=== PATIENT | male | born 1950 | race Caucasian/White ===

== ENCOUNTER 2022-04-08 12:46 | Emergency (ER) | payer MEDICARE, OTHER, SELFPAY ==
[2022-04-08] VITALS (40 sets, daily range): BP systolic 128–214; BP diastolic 64–100; PULSE 84–100; RESP 20–41; TEMP 37.2; O2SAT 95–99; BMI 37.1
--- NOTE | 2022-04-08 13:09 | DI.RAD.S_ITS ---
PROCEDURE: XR CHEST 1V INDICATIONS: Shortness of breath TECHNIQUE: One view of the chest was acquired. COMPARISON: None. FINDINGS: Surgical changes and devices: Right-sided neural stimulator is noted. Lungs and pleura: Lungs are clear. No pleural effusions or pneumothorax. Mediastinum: Mediastinal contours appear normal. Heart size is enlarged. Bones and chest wall: No suspicious bony lesions. Overlying soft tissues appear unremarkable. IMPRESSION: Cardiomegaly. No acute pulmonary findings. Dictated by: Rosalie Ochoa M.D. on 04/08/2022 at 14:21 Approved by: Rosalie Ochoa M.D. on 04/08/2022 at 14:22
--- NOTE | 2022-04-08 13:25 | ED.SOB ---
HPI - SOB/Dyspnea <Ricardo Jones MD - Last Filed: 04/09/22 10:00> General Chief Complaint: Shortness of Breath/Dyspnea Stated Complaint: SOB 7-10 days Time Seen by Provider: 04/08/22 13:17 Source: patient Mode of arrival: Ambulatory Limitations: no limitations History of Present Illness HPI Narrative: 72-year-old male presenting with worsening shortness breath over the last 7-10 days. Patient reports gradually worsening shortness of breath with activity or ambulation, no prior diagnosis of reactive airway disease or COPD. Patient denies fevers or productive cough. No known sick contacts. No associated chest pain. No abdominal pain. Past medical history notable for diabetes, obesity, Parkinson's. Related Data Home Medications Medication Instructions Recorded Confirmed atorvastatin 10 mg tablet 10 mg PO DAILY 04/08/22 04/08/22 carbidopa 25 mg-levodopa 100 mg 2 tab PO 5XD 04/08/22 04/08/22 tablet entacapone 200 mg tablet 200 mg PO 5XD 04/08/22 04/08/22 gabapentin 100 mg capsule 100 mg PO TID 04/08/22 04/08/22 insulin glargine 100 unit/mL (3 See Rx Instructions .Route .COMPLEX 04/08/22 04/08/22 mL) subcutaneous pen (Lantus Solostar U-100 Insulin) losartan 50 mg tablet 50 mg PO DAILY 04/08/22 04/08/22 metformin 850 mg tablet 850 mg PO TID 04/08/22 04/08/22 omeprazole 20 mg capsule,delayed 20 mg PO DAILY 04/08/22 04/08/22 release potassium citrate 10 mEq (1,080 10 meq PO BID 04/08/22 04/08/22 mg) tablet,extended release tamsulosin 0.4 mg capsule 0.8 mg PO DAILY 04/08/22 04/08/22 Previous Rx's Medication Instructions Recorded cefpodoxime 200 mg tablet 200 mg PO BID 10 days #20 tabs 04/09/22 furosemide 40 mg tablet (Lasix) 40 mg PO DAILY #5 tabs 04/09/22 Allergies Allergy/AdvReac Type Severity Reaction Status Date / Time No Known Drug Allergies Allergy Verified 04/08/22 13:43 <Wilfredo Grover DO - Last Filed: 04/09/22 03:06> Review of Systems Narrative: GENERAL: Denies chills, fatigue, malaise, fever, sweats. HEENT: Denies sinus pain, ear pain, sore throat, difficulty swallowing, dizziness. RESPIRATORY: See HPI CARDIOVASCULAR: Denies chest pain, palpitations, orthopnea, edema, GASTROINTESTINAL: Denies nausea, vomiting, abdominal pain, diarrhea, constipation, melena. : See HPI MUSCULOSKELETAL: denies weakness, joint pain, or bony pain SKIN: Denies rash, skin lesions, or other NEUROLOGIC: Denies weakness, headache, numbness, change in speech, confusion, seizures, incoordination. PSYCHIATRIC: No concerning psychosocial issues. 12 point review of systems is negative except for those stated above Patient History <Ricardo Jones MD - Last Filed: 04/09/22 10:00> Social History Smoking Status: Never smoker Smoking Status: Never smoker alcohol intake frequency: 0-2 drinks per day Substance Use Type: does not use Exam <Ricardo Jones MD - Last Filed: 04/09/22 10:00> Narrative Exam Narrative: Vitals reviewed. Nursing note reviewed Constitutional: interactive HENT: Moist mucous membranes EYES: No scleral icterus NECK: no masses CV: Well perfused peripherally, no cyanosis present PULM: Increased work of breathing, audible expiratory wheezing, no wheezing in the bases ABD: Non-distended MS: No gross deformities, no asymmetric edema noted, trace pitting edema in the bilateral lower extremities SKIN: Warm and dry. PSYCH: Appropriate affect NEURO: Follows simple commands, moves extremities, interactive with exam Initial Vital Signs Initial Vital Signs: Vital Signs Temperature 98.9 F 04/08/22 13:05 Pulse Rate 91 H 04/08/22 13:05 Respiratory Rate 20 04/08/22 13:05 Blood Pressure 192/88 H 04/08/22 13:05 Pulse Oximetry 98 04/08/22 13:05 Oxygen Delivery Method Room Air 04/08/22 13:05 <Wilfredo Grover DO - Last Filed: 04/09/22 03:06> Initial Vital Signs Initial Vital Signs: Vital Signs Temperature 98.9 F 04/08/22 13:05 Pulse Rate 91 H 04/08/22 13:05 Respiratory Rate 20 04/08/22 13:05 Blood Pressure 192/88 H 04/08/22 13:05 Pulse Oximetry 98 04/08/22 13:05 Oxygen Delivery Method Room Air 04/08/22 13:05 Course <Ricardo Jones MD - Last Filed: 04/09/22 10:00> Orders Ordered: ED Orders 04/09/22 01:41 Lactate (Lactic Acid) Stat Discontinued Medications Albuterol/Ipratropium (Albuterol/Ipratropium 3 Ml Ampul) 3 ml INH NOW ONE Stop: 04/08/22 13:37 Last Admin: 04/08/22 13:42 Dose: 3 ml Documented By: ENE Furosemide (Furosemide 40 Mg/4 Ml Vial) 40 mg IV NOW ONE Stop: 04/08/22 14:40 Last Admin: 04/08/22 15:21 Dose: 40 mg Documented By: RB Ceftriaxone Sodium 2,000 mg/ (Sodium Chloride) 100 mls @ 200 mls/hr IV NOW ONE Stop: 04/09/22 01:13 Last Infusion: 04/09/22 02:21 Dose: 0 mls/hr Documented By: Admin: 04/09/22 01:27 Dose: 200 mls/hr Documented By: RB Vital Signs Vital signs: Vital Signs - 8 hr 04/09/22 02:00 04/09/22 02:30 04/09/22 03:00 Temperature Pulse Rate 80 76 79 Respiratory Rate 36 H 43 H 24 Blood Pressure 156/94 H Pulse Oximetry 100 97 91 Oxygen Delivery Method 04/09/22 03:34 Temperature 98 F Pulse Rate 94 H Respiratory Rate 26 H Blood Pressure 162/94 H Pulse Oximetry 96 Oxygen Delivery Method Room Air <Wilfredo Grover DO - Last Filed: 04/09/22 03:06> Orders Ordered: ED Orders 04/09/22 01:41 Lactate (Lactic Acid) Stat Discontinued Medications Albuterol/Ipratropium (Albuterol/Ipratropium 3 Ml Ampul) 3 ml INH NOW ONE Stop: 04/08/22 13:37 Last Admin: 04/08/22 13:42 Dose: 3 ml Documented By: ENE Furosemide (Furosemide 40 Mg/4 Ml Vial) 40 mg IV NOW ONE Stop: 04/08/22 14:40 Last Admin: 04/08/22 15:21 Dose: 40 mg Documented By: RB Ceftriaxone Sodium 2,000 mg/ (Sodium Chloride) 100 mls @ 200 mls/hr IV NOW ONE Stop: 04/09/22 01:13 Last Infusion: 04/09/22 02:21 Dose: 0 mls/hr Documented By: Admin: 04/09/22 01:27 Dose: 200 mls/hr Documented By: MALCOLM Reevaluation(s) Reevaluation #1: Patient resting comfortably and feeling significant improvement after above-stated therapies. He is able to ambulate through the department is no longer short of breath Vital Signs Vital signs: Vital Signs - 8 hr 04/09/22 02:00 04/09/22 02:30 04/09/22 03:00 Temperature Pulse Rate 80 76 79 Respiratory Rate 36 H 43 H 24 Blood Pressure 156/94 H Pulse Oximetry 100 97 91 Oxygen Delivery Method 04/09/22 03:34 Temperature 98 F Pulse Rate 94 H Respiratory Rate 26 H Blood Pressure 162/94 H Pulse Oximetry 96 Oxygen Delivery Method Room Air MDM - SOB/Dyspnea <Ricardo Jones MD - Last Filed: 04/09/22 10:00> Lab Data 04/08/22 13:30 04/08/22 20:41 Labs: Lab Results 04/08/22 04/08/22 04/08/22 Range/Units 13:30 13:30 13:30 WBC 7.6 (4.5-11.0) X10^3/uL RBC 4.34 L (4.5-5.9) X10^6/uL Hgb 11.9 L (13.5-17.5) g/dL Hct 35.8 L (41-53) % MCV 82.3 (80-100) fL MCH 27.5 (26-34) PG MCHC 33.3 (30-36) % RDW 15.4 H (11.6-14.8) % Plt Count 222 (150-400) X10^3/uL Neut % (Auto) 78.0 H (50-75) % Lymph % (Auto) 11.3 L (25-40) % [place] % (Auto) 8.7 (3-14) % Eos % (Auto) 1.2 L (2-4) % Baso % (Auto) 0.8 (0-2) % Neut # (Auto) 6000 (5763-3121) /uL Lymph # (Auto) 900 L (7458-2028) /uL [place] # (Auto) 700 (0-900) /uL Eos # (Auto) 100 (0-450) /uL Baso # (Auto) 100 (0-100) /uL PT 12.8 H (10.1-12.7) SECONDS INR 1.1 (0.9-1.3) D-Dimer (<500) ng/ml VBG pH (7.33-7.43) VBG pCO2 (45-50) mmHg VBG pO2 (35-45) mmHg VBG HCO3 (24-28) mmol/L VBG Total CO2 (24-29) mmol/L VBG O2 Saturation (70-75) % VBG Base Excess (0-4) mmol/L FiO2 Sodium 135 L (137-145) mmol/L Potassium 4.3 (3.4-5.1) mmol/L Chloride 105 (98-107) mmol/L Carbon Dioxide 22 (22-32) mmol/L BUN 23 H (9-20) mg/dL Creatinine 0.93 (0.66-1.25) mg/dL Estimated GFR > 60 (>60) mL/min BUN/Creatinine Ratio 24.7 H (6-22) Glucose 285 H (80-110) mg/dL Lactate (0.7-2.1) mmol/L Calcium 9.1 (8.4-10.2) mg/dL Total Bilirubin 0.5 (0.2-1.3) mg/dL AST 21 (17-59) IU/L ALT 13 (<50) IU/L Alkaline Phosphatase 109 (38-126) U/L Troponin I < 0.012 (0.01-0.034) ng/mL NT-Pro-B Natriuret Pep 412 H (<125) pg/mL Total Protein 7.5 (6.3-8.2) g/dL Albumin 4.0 (3.5-5.0) g/dL Globulin 3.5 (1.7-4.1) g/dL Albumin/Globulin Ratio 1.1 (1.0-2.8) Procalcitonin (<0.5) ng/mL Urine RBC (0-5/HPF) Urine WBC (0-5/HPF) Urine Bacteria (None) SARS-CoV-2 (PCR) Influenza A (RT-PCR) (NEGATIVE) Influenza B (RT-PCR) (NEGATIVE) RSV (PCR) (Negative) 04/08/22 04/08/22 04/08/22 Range/Units 13:30 13:30 13:30 WBC (4.5-11.0) X10^3/uL RBC (4.5-5.9) X10^6/uL Hgb (13.5-17.5) g/dL Hct (41-53) % MCV (80-100) fL MCH (26-34) PG MCHC (30-36) % RDW (11.6-14.8) % Plt Count (150-400) X10^3/uL Neut % (Auto) (50-75) % Lymph % (Auto) (25-40) % [place] % (Auto) (3-14) % Eos % (Auto) (2-4) % Baso % (Auto) (0-2) % Neut # (Auto) (0677-2604) /uL Lymph # (Auto) (6945-7108) /uL [place] # (Auto) (0-900) /uL Eos # (Auto) (0-450) /uL Baso # (Auto) (0-100) /uL PT (10.1-12.7) SECONDS INR (0.9-1.3) D-Dimer (<500) ng/ml VBG pH (7.33-7.43) VBG pCO2 (45-50) mmHg VBG pO2 (35-45) mmHg VBG HCO3 (24-28) mmol/L VBG Total CO2 (24-29) mmol/L VBG O2 Saturation (70-75) % VBG Base Excess (0-4) mmol/L FiO2 Sodium (137-145) mmol/L Potassium (3.4-5.1) mmol/L Chloride (98-107) mmol/L Carbon Dioxide (22-32) mmol/L BUN (9-20) mg/dL Creatinine (0.66-1.25) mg/dL Estimated GFR (>60) mL/min BUN/Creatinine Ratio (6-22) Glucose (80-110) mg/dL Lactate 2.6 H (0.7-2.1) mmol/L Calcium (8.4-10.2) mg/dL Total Bilirubin (0.2-1.3) mg/dL AST (17-59) IU/L ALT (<50) IU/L Alkaline Phosphatase (38-126) U/L Troponin I (0.01-0.034) ng/mL NT-Pro-B Natriuret Pep (<125) pg/mL Total Protein (6.3-8.2) g/dL Albumin (3.5-5.0) g/dL Globulin (1.7-4.1) g/dL Albumin/Globulin Ratio (1.0-2.8) Procalcitonin (<0.5) ng/mL Urine RBC (0-5/HPF) Urine WBC (0-5/HPF) Urine Bacteria (None) SARS-CoV-2 (PCR) Cancelled Negative Influenza A (RT-PCR) Flu a negative (NEGATIVE) Influenza B (RT-PCR) Flu b negative (NEGATIVE) RSV (PCR) Negative (Negative) 04/08/22 04/08/22 04/08/22 Range/Units 13:30 15:50 15:59 WBC (4.5-11.0) X10^3/uL RBC (4.5-5.9) X10^6/uL Hgb (13.5-17.5) g/dL Hct (41-53) % MCV (80-100) fL MCH (26-34) PG MCHC (30-36) % RDW (11.6-14.8) % Plt Count (150-400) X10^3/uL Neut % (Auto) (50-75) % Lymph % (Auto) (25-40) % [place] % (Auto) (3-14) % Eos % (Auto) (2-4) % Baso % (Auto) (0-2) % Neut # (Auto) (8538-1290) /uL Lymph # (Auto) (5110-6227) /uL [place] # (Auto) (0-900) /uL Eos # (Auto) (0-450) /uL Baso # (Auto) (0-100) /uL PT (10.1-12.7) SECONDS INR (0.9-1.3) D-Dimer (<500) ng/ml VBG pH (7.33-7.43) VBG pCO2 (45-50) mmHg VBG pO2 (35-45) mmHg VBG HCO3 (24-28) mmol/L VBG Total CO2 (24-29) mmol/L VBG O2 Saturation (70-75) % VBG Base Excess (0-4) mmol/L FiO2 Sodium (137-145) mmol/L Potassium (3.4-5.1) mmol/L Chloride (98-107) mmol/L Carbon Dioxide (22-32) mmol/L BUN (9-20) mg/dL Creatinine (0.66-1.25) mg/dL Estimated GFR (>60) mL/min BUN/Creatinine Ratio (6-22) Glucose (80-110) mg/dL Lactate 3.4 H (0.7-2.1) mmol/L Calcium (8.4-10.2) mg/dL Total Bilirubin (0.2-1.3) mg/dL AST (17-59) IU/L ALT (<50) IU/L Alkaline Phosphatase (38-126) U/L Troponin I (0.01-0.034) ng/mL NT-Pro-B Natriuret Pep (<125) pg/mL Total Protein (6.3-8.2) g/dL Albumin (3.5-5.0) g/dL Globulin (1.7-4.1) g/dL Albumin/Globulin Ratio (1.0-2.8) Procalcitonin 0.11 (<0.5) ng/mL Urine RBC 1-5/hpf (0-5/HPF) Urine WBC 30-100/hpf H (0-5/HPF) Urine Bacteria Many (>30) H (None) SARS-CoV-2 (PCR) Influenza A (RT-PCR) (NEGATIVE) Influenza B (RT-PCR) (NEGATIVE) RSV (PCR) (Negative) 04/08/22 04/08/22 04/08/22 Range/Units 19:55 20:41 22:30 WBC (4.5-11.0) X10^3/uL RBC (4.5-5.9) X10^6/uL Hgb (13.5-17.5) g/dL Hct (41-53) % MCV (80-100) fL MCH (26-34) PG MCHC (30-36) % RDW (11.6-14.8) % Plt Count (150-400) X10^3/uL Neut % (Auto) (50-75) % Lymph % (Auto) (25-40) % [place] % (Auto) (3-14) % Eos % (Auto) (2-4) % Baso % (Auto) (0-2) % Neut # (Auto) (6978-0112) /uL Lymph # (Auto) (1211-1266) /uL [place] # (Auto) (0-900) /uL Eos # (Auto) (0-450) /uL Baso # (Auto) (0-100) /uL PT (10.1-12.7) SECONDS INR (0.9-1.3) D-Dimer 579 H (<500) ng/ml VBG pH 7.47 H (7.33-7.43) VBG pCO2 31.2 L (45-50) mmHg VBG pO2 52 H (35-45) mmHg VBG HCO3 23 L (24-28) mmol/L VBG Total CO2 24 (24-29) mmol/L VBG O2 Saturation 89 H (70-75) % VBG Base Excess -1.0 L (0-4) mmol/L FiO2 21 Sodium 138 (137-145) mmol/L Potassium 3.9 (3.4-5.1) mmol/L Chloride 107 (98-107) mmol/L Carbon Dioxide 24 (22-32) mmol/L BUN 20 (9-20) mg/dL Creatinine 0.92 (0.66-1.25) mg/dL Estimated GFR > 60 (>60) mL/min BUN/Creatinine Ratio 21.7 (6-22) Glucose 122 H D (80-110) mg/dL Lactate (0.7-2.1) mmol/L Calcium 9.2 (8.4-10.2) mg/dL Total Bilirubin (0.2-1.3) mg/dL AST (17-59) IU/L ALT (<50) IU/L Alkaline Phosphatase (38-126) U/L Troponin I (0.01-0.034) ng/mL NT-Pro-B Natriuret Pep (<125) pg/mL Total Protein (6.3-8.2) g/dL Albumin (3.5-5.0) g/dL Globulin (1.7-4.1) g/dL Albumin/Globulin Ratio (1.0-2.8) Procalcitonin (<0.5) ng/mL Urine RBC (0-5/HPF) Urine WBC (0-5/HPF) Urine Bacteria (None) SARS-CoV-2 (PCR) Influenza A (RT-PCR) (NEGATIVE) Influenza B (RT-PCR) (NEGATIVE) RSV (PCR) (Negative) 04/09/22 Range/Units 01:41 WBC (4.5-11.0) X10^3/uL RBC (4.5-5.9) X10^6/uL Hgb (13.5-17.5) g/dL Hct (41-53) % MCV (80-100) fL MCH (26-34) PG MCHC (30-36) % RDW (11.6-14.8) % Plt Count (150-400) X10^3/uL Neut % (Auto) (50-75) % Lymph % (Auto) (25-40) % [place] % (Auto) (3-14) % Eos % (Auto) (2-4) % Baso % (Auto) (0-2) % Neut # (Auto) (5299-1895) /uL Lymph # (Auto) (2956-6494) /uL [place] # (Auto) (0-900) /uL Eos # (Auto) (0-450) /uL Baso # (Auto) (0-100) /uL PT (10.1-12.7) SECONDS INR (0.9-1.3) D-Dimer (<500) ng/ml VBG pH (7.33-7.43) VBG pCO2 (45-50) mmHg VBG pO2 (35-45) mmHg VBG HCO3 (24-28) mmol/L VBG Total CO2 (24-29) mmol/L VBG O2 Saturation (70-75) % VBG Base Excess (0-4) mmol/L FiO2 Sodium (137-145) mmol/L Potassium (3.4-5.1) mmol/L Chloride (98-107) mmol/L Carbon Dioxide (22-32) mmol/L BUN (9-20) mg/dL Creatinine (0.66-1.25) mg/dL Estimated GFR (>60) mL/min BUN/Creatinine Ratio (6-22) Glucose (80-110) mg/dL Lactate 1.3 (0.7-2.1) mmol/L Calcium (8.4-10.2) mg/dL Total Bilirubin (0.2-1.3) mg/dL AST (17-59) IU/L ALT (<50) IU/L Alkaline Phosphatase (38-126) U/L Troponin I (0.01-0.034) ng/mL NT-Pro-B Natriuret Pep (<125) pg/mL Total Protein (6.3-8.2) g/dL Albumin (3.5-5.0) g/dL Globulin (1.7-4.1) g/dL Albumin/Globulin Ratio (1.0-2.8) Procalcitonin (<0.5) ng/mL Urine RBC (0-5/HPF) Urine WBC (0-5/HPF) Urine Bacteria (None) SARS-CoV-2 (PCR) Influenza A (RT-PCR) (NEGATIVE) Influenza B (RT-PCR) (NEGATIVE) RSV (PCR) (Negative) Point of Care Testing Glucose POC 120 Urine Dip Bedside Urine Glucose 1000 mg/dl Bedside Urine Bilirubin - Negative Bedside Urine Ketone - Negative Urine Specific [place] 1.015 Bedside Urine Occult Blood +/- Bedside Urine pH 6.0 Bedside Urine Protein - Negative Bedside Urine Urobilinogen 0.2 Bedside Urine Nitrite - Negative Bedside Urine Leukocytes + 70 Esterase MDM Narrative Medical decision making narrative: 72-year-old male presenting with worsening shortness of breath over the last 7-10 days. On presentation, vital signs notable for hypertension and normal room-air oxygen saturation, elevated respiratory rate. Physical exam notable for 72-year-old male who is alert and interactive, moderate respiratory distress. Initial concern for infectious etiology including viral syndrome, focal bacterial infection, occult sepsis, ACS, pulmonary embolism, reactive airway disease/COPD. EKG obtained on presentation notable for normal sinus rhythm at 94, normal axis, no clear ST elevation or depression noted, no significant T-wave inversions noted, QTC of 430, no significant ectopy appreciated on EKG with baseline artifact. Broad screening labs were obtained and notable for CMP with hyperglycemia and normal range bicarb, negative cardiac enzyne, mildly elevated BNP. Lactate mildly elevated with normal procalcitonin. Pt without evidence of ACS given reassuring EKG, negative troponin after several days of symptoms. COPD exacerbation seems unlikely given pt without extensive smoking history, no wheezing in the bilateral bases, and pt without significant effect with duoneb/bronchodilators on presentation. Pt administered IV furosemide given concern for possible chf exacerbation with mild cardiomegaly, mildly elevated BNP, and pitting edema no the lower extremities. Pt with significant urine output and improvment in symptoms following diuretic administration. However, repeat lactate up trending. At this point, pt does not have clear infectious source. Discussed plan for repeat labs/VBG to further assess need for admission vs discharge. Pt subsequently signed out to oncoming provider team with disposition ending follow up labs and repeat evaluation. <Wilfredo Grover DO - Last Filed: 04/09/22 03:06> Lab Data Labs: Lab Results 04/08/22 04/08/22 04/08/22 Range/Units 13:30 13:30 13:30 WBC 7.6 (4.5-11.0) X10^3/uL RBC 4.34 L (4.5-5.9) X10^6/uL Hgb 11.9 L (13.5-17.5) g/dL Hct 35.8 L (41-53) % MCV 82.3 (80-100) fL MCH 27.5 (26-34) PG MCHC 33.3 (30-36) % RDW 15.4 H (11.6-14.8) % Plt Count 222 (150-400) X10^3/uL Neut % (Auto) 78.0 H (50-75) % Lymph % (Auto) 11.3 L (25-40) % [place] % (Auto) 8.7 (3-14) % Eos % (Auto) 1.2 L (2-4) % Baso % (Auto) 0.8 (0-2) % Neut # (Auto) 6000 (2651-8603) /uL Lymph # (Auto) 900 L (7051-7924) /uL [place] # (Auto) 700 (0-900) /uL Eos # (Auto) 100 (0-450) /uL Baso # (Auto) 100 (0-100) /uL PT 12.8 H (10.1-12.7) SECONDS INR 1.1 (0.9-1.3) D-Dimer (<500) ng/ml VBG pH (7.33-7.43) VBG pCO2 (45-50) mmHg VBG pO2 (35-45) mmHg VBG HCO3 (24-28) mmol/L VBG Total CO2 (24-29) mmol/L VBG O2 Saturation (70-75) % VBG Base Excess (0-4) mmol/L FiO2 Sodium 135 L (137-145) mmol/L Potassium 4.3 (3.4-5.1) mmol/L Chloride 105 (98-107) mmol/L Carbon Dioxide 22 (22-32) mmol/L BUN 23 H (9-20) mg/dL Creatinine 0.93 (0.66-1.25) mg/dL Estimated GFR > 60 (>60) mL/min BUN/Creatinine Ratio 24.7 H (6-22) Glucose 285 H (80-110) mg/dL Lactate (0.7-2.1) mmol/L Calcium 9.1 (8.4-10.2) mg/dL Total Bilirubin 0.5 (0.2-1.3) mg/dL AST 21 (17-59) IU/L ALT 13 (<50) IU/L Alkaline Phosphatase 109 (38-126) U/L Troponin I < 0.012 (0.01-0.034) ng/mL NT-Pro-B Natriuret Pep 412 H (<125) pg/mL Total Protein 7.5 (6.3-8.2) g/dL Albumin 4.0 (3.5-5.0) g/dL Globulin 3.5 (1.7-4.1) g/dL Albumin/Globulin Ratio 1.1 (1.0-2.8) Procalcitonin (<0.5) ng/mL Urine RBC (0-5/HPF) Urine WBC (0-5/HPF) Urine Bacteria (None) SARS-CoV-2 (PCR) Influenza A (RT-PCR) (NEGATIVE) Influenza B (RT-PCR) (NEGATIVE) RSV (PCR) (Negative) 04/08/22 04/08/22 04/08/22 Range/Units 13:30 13:30 13:30 WBC (4.5-11.0) X10^3/uL RBC (4.5-5.9) X10^6/uL Hgb (13.5-17.5) g/dL Hct (41-53) % MCV (80-100) fL MCH (26-34) PG MCHC (30-36) % RDW (11.6-14.8) % Plt Count (150-400) X10^3/uL Neut % (Auto) (50-75) % Lymph % (Auto) (25-40) % [place] % (Auto) (3-14) % Eos % (Auto) (2-4) % Baso % (Auto) (0-2) % Neut # (Auto) (6852-0089) /uL Lymph # (Auto) (4177-9899) /uL [place] # (Auto) (0-900) /uL Eos # (Auto) (0-450) /uL Baso # (Auto) (0-100) /uL PT (10.1-12.7) SECONDS INR (0.9-1.3) D-Dimer (<500) ng/ml VBG pH (7.33-7.43) VBG pCO2 (45-50) mmHg VBG pO2 (35-45) mmHg VBG HCO3 (24-28) mmol/L VBG Total CO2 (24-29) mmol/L VBG O2 Saturation (70-75) % VBG Base Excess (0-4) mmol/L FiO2 Sodium (137-145) mmol/L Potassium (3.4-5.1) mmol/L Chloride (98-107) mmol/L Carbon Dioxide (22-32) mmol/L BUN (9-20) mg/dL Creatinine (0.66-1.25) mg/dL Estimated GFR (>60) mL/min BUN/Creatinine Ratio (6-22) Glucose (80-110) mg/dL Lactate 2.6 H (0.7-2.1) mmol/L Calcium (8.4-10.2) mg/dL Total Bilirubin (0.2-1.3) mg/dL AST (17-59) IU/L ALT (<50) IU/L Alkaline Phosphatase (38-126) U/L Troponin I (0.01-0.034) ng/mL NT-Pro-B Natriuret Pep (<125) pg/mL Total Protein (6.3-8.2) g/dL Albumin (3.5-5.0) g/dL Globulin (1.7-4.1) g/dL Albumin/Globulin Ratio (1.0-2.8) Procalcitonin (<0.5) ng/mL Urine RBC (0-5/HPF) Urine WBC (0-5/HPF) Urine Bacteria (None) SARS-CoV-2 (PCR) Cancelled Negative Influenza A (RT-PCR) Flu a negative (NEGATIVE) Influenza B (RT-PCR) Flu b negative (NEGATIVE) RSV (PCR) Negative (Negative) 04/08/22 04/08/22 04/08/22 Range/Units 13:30 15:50 15:59 WBC (4.5-11.0) X10^3/uL RBC (4.5-5.9) X10^6/uL Hgb (13.5-17.5) g/dL Hct (41-53) % MCV (80-100) fL MCH (26-34) PG MCHC (30-36) % RDW (11.6-14.8) % Plt Count (150-400) X10^3/uL Neut % (Auto) (50-75) % Lymph % (Auto) (25-40) % [place] % (Auto) (3-14) % Eos % (Auto) (2-4) % Baso % (Auto) (0-2) % Neut # (Auto) (3486-9277) /uL Lymph # (Auto) (1447-0356) /uL [place] # (Auto) (0-900) /uL Eos # (Auto) (0-450) /uL Baso # (Auto) (0-100) /uL PT (10.1-12.7) SECONDS INR (0.9-1.3) D-Dimer (<500) ng/ml VBG pH (7.33-7.43) VBG pCO2 (45-50) mmHg VBG pO2 (35-45) mmHg VBG HCO3 (24-28) mmol/L VBG Total CO2 (24-29) mmol/L VBG O2 Saturation (70-75) % VBG Base Excess (0-4) mmol/L FiO2 Sodium (137-145) mmol/L Potassium (3.4-5.1) mmol/L Chloride (98-107) mmol/L Carbon Dioxide (22-32) mmol/L BUN (9-20) mg/dL Creatinine (0.66-1.25) mg/dL Estimated GFR (>60) mL/min BUN/Creatinine Ratio (6-22) Glucose (80-110) mg/dL Lactate 3.4 H (0.7-2.1) mmol/L Calcium (8.4-10.2) mg/dL Total Bilirubin (0.2-1.3) mg/dL AST (17-59) IU/L ALT (<50) IU/L Alkaline Phosphatase (38-126) U/L Troponin I (0.01-0.034) ng/mL NT-Pro-B Natriuret Pep (<125) pg/mL Total Protein (6.3-8.2) g/dL Albumin (3.5-5.0) g/dL Globulin (1.7-4.1) g/dL Albumin/Globulin Ratio (1.0-2.8) Procalcitonin 0.11 (<0.5) ng/mL Urine RBC 1-5/hpf (0-5/HPF) Urine WBC 30-100/hpf H (0-5/HPF) Urine Bacteria Many (>30) H (None) SARS-CoV-2 (PCR) Influenza A (RT-PCR) (NEGATIVE) Influenza B (RT-PCR) (NEGATIVE) RSV (PCR) (Negative) 04/08/22 04/08/22 04/08/22 Range/Units 19:55 20:41 22:30 WBC (4.5-11.0) X10^3/uL RBC (4.5-5.9) X10^6/uL Hgb (13.5-17.5) g/dL Hct (41-53) % MCV (80-100) fL MCH (26-34) PG MCHC (30-36) % RDW (11.6-14.8) % Plt Count (150-400) X10^3/uL Neut % (Auto) (50-75) % Lymph % (Auto) (25-40) % [place] % (Auto) (3-14) % Eos % (Auto) (2-4) % Baso % (Auto) (0-2) % Neut # (Auto) (3305-8172) /uL Lymph # (Auto) (7470-4371) /uL [place] # (Auto) (0-900) /uL Eos # (Auto) (0-450) /uL Baso # (Auto) (0-100) /uL PT (10.1-12.7) SECONDS INR (0.9-1.3) D-Dimer 579 H (<500) ng/ml VBG pH 7.47 H (7.33-7.43) VBG pCO2 31.2 L (45-50) mmHg VBG pO2 52 H (35-45) mmHg VBG HCO3 23 L (24-28) mmol/L VBG Total CO2 24 (24-29) mmol/L VBG O2 Saturation 89 H (70-75) % VBG Base Excess -1.0 L (0-4) mmol/L FiO2 21 Sodium 138 (137-145) mmol/L Potassium 3.9 (3.4-5.1) mmol/L Chloride 107 (98-107) mmol/L Carbon Dioxide 24 (22-32) mmol/L BUN 20 (9-20) mg/dL Creatinine 0.92 (0.66-1.25) mg/dL Estimated GFR > 60 (>60) mL/min BUN/Creatinine Ratio 21.7 (6-22) Glucose 122 H D (80-110) mg/dL Lactate (0.7-2.1) mmol/L Calcium 9.2 (8.4-10.2) mg/dL Total Bilirubin (0.2-1.3) mg/dL AST (17-59) IU/L ALT (<50) IU/L Alkaline Phosphatase (38-126) U/L Troponin I (0.01-0.034) ng/mL NT-Pro-B Natriuret Pep (<125) pg/mL Total Protein (6.3-8.2) g/dL Albumin (3.5-5.0) g/dL Globulin (1.7-4.1) g/dL Albumin/Globulin Ratio (1.0-2.8) Procalcitonin (<0.5) ng/mL Urine RBC (0-5/HPF) Urine WBC (0-5/HPF) Urine Bacteria (None) SARS-CoV-2 (PCR) Influenza A (RT-PCR) (NEGATIVE) Influenza B (RT-PCR) (NEGATIVE) RSV (PCR) (Negative) 04/09/22 Range/Units 01:41 WBC (4.5-11.0) X10^3/uL RBC (4.5-5.9) X10^6/uL Hgb (13.5-17.5) g/dL Hct (41-53) % MCV (80-100) fL MCH (26-34) PG MCHC (30-36) % RDW (11.6-14.8) % Plt Count (150-400) X10^3/uL Neut % (Auto) (50-75) % Lymph % (Auto) (25-40) % [place] % (Auto) (3-14) % Eos % (Auto) (2-4) % Baso % (Auto) (0-2) % Neut # (Auto) (6162-6353) /uL Lymph # (Auto) (5588-1385) /uL [place] # (Auto) (0-900) /uL Eos # (Auto) (0-450) /uL Baso # (Auto) (0-100) /uL PT (10.1-12.7) SECONDS INR (0.9-1.3) D-Dimer (<500) ng/ml VBG pH (7.33-7.43) VBG pCO2 (45-50) mmHg VBG pO2 (35-45) mmHg VBG HCO3 (24-28) mmol/L VBG Total CO2 (24-29) mmol/L VBG O2 Saturation (70-75) % VBG Base Excess (0-4) mmol/L FiO2 Sodium (137-145) mmol/L Potassium (3.4-5.1) mmol/L Chloride (98-107) mmol/L Carbon Dioxide (22-32) mmol/L BUN (9-20) mg/dL Creatinine (0.66-1.25) mg/dL Estimated GFR (>60) mL/min BUN/Creatinine Ratio (6-22) Glucose (80-110) mg/dL Lactate 1.3 (0.7-2.1) mmol/L Calcium (8.4-10.2) mg/dL Total Bilirubin (0.2-1.3) mg/dL AST (17-59) IU/L ALT (<50) IU/L Alkaline Phosphatase (38-126) U/L Troponin I (0.01-0.034) ng/mL NT-Pro-B Natriuret Pep (<125) pg/mL Total Protein (6.3-8.2) g/dL Albumin (3.5-5.0) g/dL Globulin (1.7-4.1) g/dL Albumin/Globulin Ratio (1.0-2.8) Procalcitonin (<0.5) ng/mL Urine RBC (0-5/HPF) Urine WBC (0-5/HPF) Urine Bacteria (None) SARS-CoV-2 (PCR) Influenza A (RT-PCR) (NEGATIVE) Influenza B (RT-PCR) (NEGATIVE) RSV (PCR) (Negative) Point of Care Testing Glucose POC 120 Urine Dip Bedside Urine Glucose 1000 mg/dl Bedside Urine Bilirubin - Negative Bedside Urine Ketone - Negative Urine Specific [place] 1.015 Bedside Urine Occult Blood +/- Bedside Urine pH 6.0 Bedside Urine Protein - Negative Bedside Urine Urobilinogen 0.2 Bedside Urine Nitrite - Negative Bedside Urine Leukocytes + 70 Esterase MDM Narrative Medical decision making narrative: 72-year-old male presenting with worsening shortness of breath over the last 7-10 days. On presentation, vital signs notable for hypertension and normal room-air oxygen saturation, elevated respiratory rate. Physical exam notable for 72-year-old male who is alert and interactive, moderate respiratory distress. Initial concern for infectious etiology including viral syndrome, focal bacterial infection, occult sepsis, ACS, pulmonary embolism, reactive airway disease/COPD. EKG obtained on presentation notable for normal sinus rhythm at 94, normal axis, no clear ST elevation or depression noted, no significant T-wave inversions noted, QTC of 430, no significant ectopy appreciated on EKG with baseline artifact. Broad screening labs were obtained and notable for CMP with hyperglycemia and normal range bicarb, negative cardiac enzyne, mildly elevated BNP. Lactate mildly elevated with normal procalcitonin. Pt without evidence of ACS given reassuring EKG, negative troponin after several days of symptoms. COPD exacerbation seems unlikely given pt without extensive smoking history, no wheezing in the bilateral bases, and pt without significant effect with duoneb/bronchodilators on presentation. Pt administered IV furosemide given concern for possible chf exacerbation with mild cardiomegaly, mildly elevated BNP, and pitting edema no the lower extremities. Pt with significant urine output and improvment in symptoms following diuretic administration. However, repeat lactate up trending. At this point, pt does not have clear infectious source. Discussed plan for repeat labs/VBG to further assess need for admission vs discharge. Pt subsequently signed out to oncoming provider team with disposition ending follow up labs and repeat evaluation. [1900] (Reilly) Patient received in sign out from [Karen]. I have reviewed the clinical course and performed an independent history and physical exam. Patient's work of breathing, as noted above is significantly improved after diuresis. Subsequent urinary analysis notes significant white blood cells in the urine which is are likely source. Over the course of the night his respiratory effort has been remarkably improved. He is given antibiotics and advanced imaging without significant findings. Lactate repeated and normal. He shows no signs of sepsis, has no increased work of breathing, hypoxemia or reported shortness of breath at this point. He is appropriate for discharge, prescription sent to his pharmacy of choice, questions answered to his apparent satisfaction. He and family understand and agree with the diagnosis and plan Discharge Plan Departure Patient Disposition: Home Clinical Impression: Pulmonary edema, Acute UTI Instructions: DI for Urinary Tract Infection (UTI), DI for Shortness of Breath Activity Restrictions/Additional Instructions: *You have been diagnosed with [urinary tract infection and mild fluid overload called pulmonary edema *What to do: *Please continue to take your regular medications as directed. [x ] New medication prescriptions sent to your pharmacy: [ [facility]] [ ] New medication written as a paper prescription [ ] No new medications given *Please follow up with your primary care provider in 2-3 days, call for an appointment. Let them know you were seen in the Emergency Department and that we ask that you be seen in follow up. We will electronically transmit a record of today's note if your PCP is in our system *If you do not have a primary care provider please contact the [facility] Resource line at [phone]. They will ask some questions about your medical history and help get you set up with a doctor in the community. *Return to Emergency Department if you should have any new, worsening or concerning symptoms, such as [fever greater than 101 F, shaking chills, worsening pain, persistent vomiting or other bothersome symptoms] Prescriptions: New cefpodoxime 200 mg tablet 200 mg PO BID 10 Days Qty: 20 0RF Rx Instructions: must administer with a meal/food furosemide [Lasix] 40 mg tablet 40 mg PO DAILY Qty: 5 0RF No Action potassium citrate 10 mEq (1,080 mg) tablet extended release 10 meq PO BID carbidopa-levodopa 25-100 mg Tablet 2 tab PO 5XD metformin 850 mg tablet 850 mg PO TID Patient Comments: TAKE ONE TABLET BY MOUTH THREE TIMES A DAY entacapone 200 mg tablet 200 mg PO 5XD gabapentin 100 mg capsule 100 mg PO TID omeprazole 20 mg capsule,delayed release(DR/EC) 20 mg PO DAILY losartan 50 mg tablet 50 mg PO DAILY atorvastatin 10 mg tablet 10 mg PO DAILY Patient Comments: TAKE ONE TABLET BY MOUTH ONE TIME DAILY tamsulosin 0.4 mg capsule 0.8 mg PO DAILY insulin glargine [Lantus Solostar U-100 Insulin] 100 unit/mL (3 mL) insulin pen See Rx Instructions .ROUTE .COMPLEX Rx Instructions: Inject 80 units am and 75 units in pm under the skin two times a day. Referrals: Miscellaneous,Doctor, MD [Primary Care Provider] - Stand Alone Forms: Patient Portal/API
[2022-04-08] MEDS: ALBUTEROL/IPRATROPIUM 3 ML AMPUL INH (13:42)
[2022-04-08 13:50] LABS: Add Manual Diff / Slide Review NO; Basophils Absolute Auto 100 /uL (0-100); Basophils Percent Auto 0.8 % (0-2); Eosinophils Absolute Auto 100 /uL (0-450); Eosinophils Percent Auto 1.2 % (2-4); Hematocrit 35.8 % (41-53); Hemoglobin 11.9 g/dL (13.5-17.5); Lymphocytes Absolute Auto 900 /uL (1100-4500); Lymphocytes Percent Auto 11.3 % (25-40); Mean Corpuscular HGB Conc 33.3 % (30-36); Mean Corpuscular Hemoglobin 27.5 PG (26-34); Mean Corpuscular Volume 82.3 fL (80-100); Monocytes Absolute Auto 700 /uL (0-900); Monocytes Percent Auto 8.7 % (3-14); Neutrophils Absolute Auto 6000 /uL (1500-7000); Platelet Count 222 X10^3/uL (150-400); Red Blood Cell Count 4.34 X10^6/uL (4.5-5.9); Red Cell Distribution Width 15.4 % (11.6-14.8); White Blood Cell Count 7.6 X10^3/uL (4.5-11.0)
[2022-04-08 13:53] LABS: INR 1.1 (0.9-1.3); Prothrombin Time 12.8 SECONDS (10.1-12.7)
[2022-04-08 13:58] LABS: Alanine Aminotransferase 13 IU/L (<50); Albumin Globulin Ratio 1.1 (1.0-2.8); Alkaline Phosphatase 109 U/L (38-126); Aspartate Aminotransferase 21 IU/L (17-59); BUN Creatinine Ratio 24.7 (6-22); Bilirubin Total 0.5 mg/dL (0.2-1.3); Blood Urea Nitrogen 23 mg/dL (9-20); Calcium 9.1 mg/dL (8.4-10.2); Carbon Dioxide 22 mmol/L (22-32); Chloride 105 mmol/L (98-107); Estimated Glomerular Filt Rate > 60 mL/min (>60); Globulin 3.5 g/dL (1.7-4.1); Glucose 285 mg/dL (80-110); HEMOLYSIS < 15 (0-50); Lactate (Lactic Acid) 2.6 mmol/L (0.7-2.1); Potassium 4.3 mmol/L (3.4-5.1); Sodium 135 mmol/L (137-145); Total Protein 7.5 g/dL (6.3-8.2)
[2022-04-08 14:10] LABS: NT-proBNP (BNP-Adult 18+) 412 pg/mL (<125); Troponin I < 0.012 ng/mL (0.01-0.034)
[2022-04-08 14:29] LABS: Influenza A - CEPHEID Flu A NEGATIVE (NEGATIVE); Influenza B - CEPHEID Flu B NEGATIVE (NEGATIVE); Respiratory Syncytial Virus Negative (Negative)
[2022-04-08 14:32] LABS: COVID-19 CEPHEID 4-PLEX PCR Negative (Negative)
[2022-04-08] MEDS: FUROSEMIDE 40 MG/4 ML VIAL IV (15:21)
[2022-04-08 15:43] LABS: Reflexed Lactate in 2 Hours Y
[2022-04-08 16:19] LABS: Lactate 2HR (Lactic Acid Rflx) 3.4 mmol/L (0.7-2.1)
[2022-04-08 16:26] LABS: Bacteria Urine Many (>30); RBC Urine 1-5/HPF (0-5/HPF); WBC Urine 30-100/HPF (0-5/HPF)
[2022-04-08 17:29] LABS: Procalcitonin 0.11 ng/mL (<0.5)
[2022-04-08 20:11] LABS: pH VBG 7.47 (7.33-7.43)
[2022-04-08 20:12] LABS: Fractionated Inspired Oxygen 21; HCO3 VBG 23 mmol/L (24-28); Oxygen Saturation VBG 89 % (70-75); PCO2 VBG 31.2 mmHg (45-50); PO2 VBG 52 mmHg (35-45); Total CO2 VBG 24 mmol/L (24-29)
[2022-04-08 21:09] LABS: BUN Creatinine Ratio 21.7 (6-22); Blood Urea Nitrogen 20 mg/dL (9-20); Calcium 9.2 mg/dL (8.4-10.2); Carbon Dioxide 24 mmol/L (22-32); Chloride 107 mmol/L (98-107); Estimated Glomerular Filt Rate > 60 mL/min (>60); Glucose 122 mg/dL (80-110); HEMOLYSIS < 15 (0-50); Potassium 3.9 mmol/L (3.4-5.1); Sodium 138 mmol/L (137-145)
[2022-04-08 23:18] LABS: D Dimer 579 ng/ml (<500)
--- NOTE | 2022-04-08 23:23 | DI.CT.S_ITS ---
PROCEDURE: CT CHEST ABD PEL W CON INDICATIONS: worsening SOB, septic, TECHNIQUE: After the administration of intravenous contrast, axial sections acquired from the supraclavicular neck to the pubic symphysis. Coronal and sagittal reformats were performed. For radiation dose reduction, the following was used: automated exposure control, adjustment of mA and/or kV according to patient size. COMPARISON: None. FINDINGS: Image quality: Excellent. CHEST: Lower Neck: No lymphadenopathy by size criteria. Thyroid: Visualized thyroid demonstrates no discrete nodules. Axillae: No lymphadenopathy by size criteria. Chest Wall: There is a right chest wall pacemaker with a lead extending superiorly. Lungs and Airways: No acute consolidation. There is minimal dependent atelectasis. The trachea and central airways are patent. Pleura: No pneumothorax or pleural effusions. Heart: Heart size is normal. No pericardial effusion. Thoracic Vessels: The aorta and pulmonary arteries are normal in size. Mediastinum and [place]: No lymphadenopathy by size criteria. Esophagus: No wall thickening. There is a small hiatal hernia. ABDOMEN: Liver: No mass lesion. Gallbladder: Within normal limits without calcified gallstones. Biliary ducts: No biliary ductal dilatation. Pancreas: Unremarkable. Spleen: Normal in size. Adrenal Glands: There is a left adrenal nodule measuring up to 1.7 cm. This demonstrates indeterminate attenuation values. Kidneys and Ureters: No hydronephrosis. There is a small exophytic left renal cyst or renal mass measuring up to 1.9 cm. There are a few left renal cysts. There is a 0.4 cm nonobstructing stone within the left kidney. There is mild fullness of the left renal collecting system with extending to the bladder without a discrete obstructing stone or definite mass visualized. Stomach and Bowel: Stomach, small bowel loops, and colon are normal in caliber and wall thickness. Peritoneum: No abnormal intraperitoneal fluid. No free air. Ventral Wall: No hernia. Abdominal Nodes: No retroperitoneal or mesenteric adenopathy by size criteria. Vessels: Aorta and inferior vena cava are normal in size. PELVIS: Pelvic Organs: Multiple fiducial seeds are noted within the prostate. Bladder: There is mild bladder wall trabeculation suggesting sequelae of chronic bladder outlet obstruction. Pelvic Nodes: No enlarged lymph nodes. Miscellaneous: No inguinal hernias are seen. Bones: Visualized osseous structures demonstrate no suspicious focal lesions. IMPRESSION: 1. No definite acute intra-abdominal abnormality. 2. Left nephrolithiasis without evidence of obstructive uropathy. No pericecal inflammatory changes to suggest appendicitis. 3. Small nonobstructing stone within the left renal collecting system. 4. Mild fullness of the left renal collecting system may reflect a distal ureteral stricture or nonvisualized stone. 5. Bladder wall trabeculation consistent sequelae of chronic bladder outlet obstruction. 6. Medial left exophytic hyperdense cyst or renal mass. Recommend further evaluation with ultrasound. Dictated by: Jc Narayanan M.D. on 04/09/2022 at 0:26 Approved by: Jc Narayanan M.D. on 04/09/2022 at 0:37
[2022-04-09] VITALS (8 sets, daily range): BP systolic 156–162; BP diastolic 94; PULSE 76–94; RESP 24–50; TEMP 36.6; O2SAT 91–100
[2022-04-09] MEDS: cefTRIAXone 2,000 MG in SODIUM CHLORIDE 0.9% 100 ML 200 MG IV (01:27)
[2022-04-09 01:58] LABS: Lactate (Lactic Acid) 1.3 mmol/L (0.7-2.1)
== END 2022-04-09 03:35 | disposition home or self-care (01) ==
PROVIDERS: Emergency Medicine; Nurse Practitioner Critical Care Medicine; Emergency Provider Emergency Medicine
DX: J81.1 Chronic pulmonary edema (principal); N39.0 Urinary tract infection, site not specified; I10 Essential (primary) hypertension; Z20.822 Contact with and (suspected) exposure to COVID-19
CPT/HCPCS: 0241U; 36415; 71045; 71260; 74177; 80048; 80053; 81003; 81015; 82805; 82962; 83605; 83880; 84145; 84484; 85025; 85379; 85610; 87077; 87086; 87186; 93005; 94640; 96365; 96375; 99284; J0696; J1940; Q9967

== ENCOUNTER 2022-06-01 11:06 | Inpatient (IN) | payer MEDICARE, OTHER, SELFPAY ==
[2022-06-01] VITALS (126 sets, daily range): BP systolic 87–211; BP diastolic 49–91; PULSE 70–115; RESP 16–75; TEMP 36.8–38.8; O2SAT 72–100; BMI 37.4
[2022-06-01 12:12] LABS: Add Manual Diff / Slide Review NO; Basophils Absolute Auto 100 /uL (0-100); Basophils Percent Auto 0.5 % (0-2); Eosinophils Absolute Auto 0 /uL (0-450); Eosinophils Percent Auto 0.1 % (2-4); Hematocrit 32.4 % (41-53); Hemoglobin 10.7 g/dL (13.5-17.5); Lymphocytes Absolute Auto 1000 /uL (1100-4500); Lymphocytes Percent Auto 6.3 % (25-40); Mean Corpuscular Hemoglobin 27.3 PG (26-34); Mean Corpuscular Volume 82.7 fL (80-100); Monocytes Absolute Auto 1100 /uL (0-900); Neutrophils Absolute Auto 13300 /uL (1500-7000); Neutrophils Percent Auto 86.1 % (50-75); Platelet Count 266 X10^3/uL (150-400); Red Blood Cell Count 3.92 X10^6/uL (4.5-5.9); Red Cell Distribution Width 16.6 % (11.6-14.8); White Blood Cell Count 15.5 X10^3/uL (4.5-11.0)
--- NOTE | 2022-06-01 12:22 | PC.NURSE ---
Patient has a brain stimulator to treat his parkinson's disease. The battery is implanted on his Right anterior upper chest.
[2022-06-01 12:27] LABS: INR 1.3 (0.9-1.3); Prothrombin Time 15.4 SECONDS (10.1-12.7)
[2022-06-01 12:30] LABS: PTT Partial Thromboplastin Tim 28 SECONDS (26-36)
[2022-06-01 12:34] LABS: Lactate (Lactic Acid) 3.7 mmol/L (0.7-2.1)
[2022-06-01 12:35] LABS: Alanine Aminotransferase 16 IU/L (<50); Albumin 3.7 g/dL (3.5-5.0); Albumin Globulin Ratio 1.1 (1.0-2.8); Alkaline Phosphatase 91 U/L (38-126); Aspartate Aminotransferase 18 IU/L (17-59); BUN Creatinine Ratio 19.8 (6-22); Bilirubin Total 0.7 mg/dL (0.2-1.3); Blood Urea Nitrogen 25 mg/dL (9-20); Calcium 9.4 mg/dL (8.4-10.2); Carbon Dioxide 23 mmol/L (22-32); Chloride 101 mmol/L (98-107); Estimated Glomerular Filt Rate > 60 mL/min (>60); Globulin 3.5 g/dL (1.7-4.1); Glucose 196 mg/dL (80-110); HEMOLYSIS < 15 (0-50); Potassium 4.2 mmol/L (3.4-5.1); Sodium 134 mmol/L (137-145); Total Protein 7.2 g/dL (6.3-8.2)
--- NOTE | 2022-06-01 12:39 | DI.RAD.S_ITS ---
PROCEDURE: XR CHEST 1V INDICATIONS: suspected sepsis TECHNIQUE: One view of the chest was acquired. COMPARISON: [facility], CR, XR CHEST 1V, 04/08/2022, 13:44. FINDINGS: Surgical changes and devices: Right chest generator pack with leads coursing cephalad as before. Lungs and pleura: Lung volumes are low. Pulmonary vasculature appears prominent. Minimal hazy bibasilar opacities. Mediastinum: Mediastinal contours appear normal. Heart size is normal. Bones and chest wall: No suspicious bony lesions. Overlying soft tissues appear unremarkable. IMPRESSION: Lung volumes are low. Pulmonary vasculature appears congested with suggestion of minimal bibasilar pulmonary opacities, findings that could be accentuated due to low lung volumes but could indicate mild fluid overload/CHF. Dictated by: Ej Sim M.D. on 06/01/2022 at 13:15 Approved by: Ej Sim M.D. on 06/01/2022 at 13:18
[2022-06-01 13:15] LABS: Procalcitonin 0.36 ng/mL (<0.5)
[2022-06-01] MEDS: SODIUM CHLORIDE 0.9% 1052.33 ML IV (13:19)
[2022-06-01] MEDS: PANTOPRAZOLE 40 MG VIAL 80 MG IV (13:20)
--- NOTE | 2022-06-01 13:27 | DI.CT.S_ITS ---
PROCEDURE: CT ABDOMEN PELVIS WO CON INDICATIONS: Hematochezia TECHNIQUE: Noncontrast 5 mm thick sections acquired from the diaphragms to the symphysis. 5 mm coronal and sagittal reformats were then performed. For radiation dose reduction, the following was used: automated exposure control, adjustment of mA and/or kV according to patient size. COMPARISON: [facility], CT, CT CHEST ABD PEL W CON, 04/08/2022, 23:26. FINDINGS: Image quality: Excellent. ABDOMEN: Lung bases: Lung bases are clear. Heart size is normal. Solid organs: Liver is normal in size. Gallbladder is partially contracted, unremarkable . Pancreas is normal in contours. Spleen is normal in size. No adrenal nodules. Nonobstructing left lower pole renal stone. No hydronephrosis. Chronic inflammatory change in the perinephric fat bilaterally. Peritoneum and bowel: Unenhanced bowel loops demonstrate normal wall thickness and caliber. No free fluid or air. Nodes and vessels: No retroperitoneal or mesenteric adenopathy by size criteria. Aorta and inferior vena cava are normal in caliber. Miscellaneous: No ventral hernias. PELVIS: Genitourinary: Prostate implant seeds. Churchill catheter in the bladder decompresses the bladder. Diffuse bladder wall thickening. Miscellaneous: No inguinal hernias or adenopathy. Bones: No suspicious bony lesions. Old T12 compression fracture. No acute compression fractures. IMPRESSION: 1. No evidence of acute abdominal process. 2. Interval placement of a Churchill catheter, decompressing the bladder. The bladder wall is diffusely thickened. 3. Prostate implant seeds. 4. No evidence of metastatic disease in the abdomen and pelvis. Dictated by: Abhi Mccormick M.D. on 06/01/2022 at 14:34 Approved by: Abhi Mccormick M.D. on 06/01/2022 at 14:40
[2022-06-01 14:00] LABS: Appearance Urine UA CLEAR; Bilirubin Urine UA NEGATIVE (NEGATIVE); Color Urine UA YELLOW; Glucose Urine UA TRACE g/dL (Negative); Ketones Urine UA NEGATIVE (NEGATIVE); Leukocyte Esterase Urine UA 1+ (NEGATIVE); Nitrite Urine UA POSITIVE (Negative); Occult Blood Urine UA 1+ (Negative); Protein Urine UA 1+ (Negative); pH Urine UA 6.5 (4.5-8.0)
[2022-06-01 14:01] LABS: Creatine Kinase 78 U/L (55-170); NT-proBNP (BNP-Adult 18+) 637 pg/mL (<125); Troponin I 0.016 ng/mL (0.01-0.034)
--- NOTE | 2022-06-01 14:03 | ED_ITS ---
HPI - GI Bleed <Florentino Hernandez PA-C - Last Filed: 06/01/22 20:23> General Chief complaint: GI Bleed Stated complaint: blood in stool Time Seen by Provider: 06/01/22 11:07 Source: patient and family Mode of arrival: Wheelchair History of Present Illness HPI Narrative: 72-year-old male with past medical history BPH, GERD, hypertension, type 2 diabetes, Parkinson's disease, CHF, prostate cancer presents to the ED with 1 day of in the stools. Patient states he had a loose bowel movement this morning which was mostly blood. Patient has a distant history of hemorrhoids, no recent issues with them. Patient denies fever, chills, chest pain, shortness of breath, nausea, vomiting, abdominal pain, dysuria, lightheadedness, dizziness, syncope. Patient frequently self catheterizes almost every day due to the urinary retention caused from the Parkinson's disease. Patient has a history of frequent UTIs. Patient's last UTI was on 04/08/2022, treated with cefpodoxime. Patient was recently started on finasteride in addition to tamsulosin for the BPH. Related Data Home Medications Medication Instructions Recorded Confirmed carbidopa 25 mg-levodopa 100 mg 2 tab PO 5XD 04/08/22 05/24/22 tablet entacapone 200 mg tablet 200 mg PO 5XD 04/08/22 05/24/22 losartan 50 mg tablet 50 mg PO DAILY 04/08/22 05/24/22 metformin 850 mg tablet 850 mg PO TID 04/08/22 05/24/22 omeprazole 20 mg capsule,delayed 20 mg PO DAILY 04/08/22 05/24/22 release potassium citrate 10 mEq (1,080 10 meq PO BID 04/08/22 05/24/22 mg) tablet,extended release tamsulosin 0.4 mg capsule 0.8 mg PO DAILY 04/08/22 05/24/22 carbidopa ER 25 mg-levodopa 100 mg 1 tab PO BID 04/13/22 05/24/22 tablet,extended release lancets 33 gauge (Micro Thin #100 ea 04/13/22 05/24/22 Lancets) selegiline HCl 5 mg tablet 5 mg PO BID 04/13/22 05/24/22 atorvastatin 10 mg tablet 10 mg PO DAILY 05/24/22 05/24/22 gabapentin 100 mg capsule 100 mg PO TID 05/24/22 05/24/22 Previous Rx's Medication Instructions Recorded insulin glargine 100 unit/mL (3 See Rx Instructions .Route 04/13/22 mL) subcutaneous pen (Lantus .COMPLEX #15 mL Solostar U-100 Insulin) pen needle, diabetic 32 gauge x #100 ea 05/04/22 (BD Reshma 2nd Gen Pen Needle) finasteride 1 mg tablet 1 mg PO DAILY #90 tabs 05/31/22 Allergies Allergy/AdvReac Type Severity Reaction Status Date / Time No Known Drug Allergies Allergy Verified 06/01/22 11:28 Review of Systems <Florentino Hernandez PA-C - Last Filed: 06/01/22 20:23> Review of Systems ROS Unobtainable: All systems reviewed & are unremarkable except as noted in HPI and below Constitutional Constitutional: Denies chills, Denies fatigue, Denies fever(s), Denies frequent falls, Denies lethargy and Denies weakness Eyes Eyes: Denies change in vision, Denies eye discharge, Denies irritation and Denies loss of vision ENT Ears, Nose, Mouth, and Throat: Denies change in voice, Denies dizziness, Denies neck pain, Denies sore throat and Denies throat swelling Cardiovascular Cardiovascular: Denies chest pain, Denies irregular heart rhythm, Denies lighthe adedness, Denies palpitations, Denies dyspnea, Denies dyspnea on exertion and Denies orthopnea Respiratory Respiratory: Denies cough, Denies dyspnea, Denies dyspnea on exertion and Denies wheezing Gastrointestinal Gastrointestinal: Denies abdominal pain, Reports hematochezia, Denies change in bowel habits, Denies diarrhea, Denies nausea and Denies vomiting Genitourinary Genitourinary: Denies hematuria, Denies flank pain, Denies urinary incontinence and Denies urinary urgency Musculoskeletal Musculoskeletal: Denies back pain, Denies muscle weakness, Denies neck pain, Denies numbness and Denies tingling Integumentary/Breasts Skin/Breast: Denies pruritus, Denies erythema, Denies rash and Denies wounds Neurologic Neurologic: Denies behavioral changes, Denies confusion, Denies dizziness, Denies frequent falls, Denies loss of vision, Denies numbness, Denies tingling and Denies weakness Psychiatric Psychiatric: Denies anxiety, Denies behavioral changes, Denies confusion, Denies depression, Denies homicidal ideation and Denies suicidal ideation Endocrine Endocrine: Denies fatigue, Denies flushing and Denies palpitations Hematologic/Lymphatic Hematologic/Lymphatic: Denies easy bruising Allergic/Immunologic Allergic/Immunologic: Denies urticaria, Denies throat swelling and Denies wheezing Patient History <Florentino Hernandez PA-C - Last Filed: 06/01/22 20:23> Medical History Acne Anemia Ankle pain Benign prostatic hyperplasia Chicken pox Congestive heart failure GERD (gastroesophageal reflux disease) History of prostate cancer Hypertension Measles Parkinson's disease Prostate cancer (~2010) Shoulder pain Type 2 diabetes mellitus Surgical History Anesthesia History of knee surgery Kidney stones Family History Father Stroke Mother Cancer Sister Hypertension Social History household members: spouse, family and children Smoking Status: Former smoker alcohol intake: never Smoking Status: Former smoker tobacco type: cigarettes alcohol intake frequency: 0-2 drinks per day Substance Use Type: does not use Exam <Florentino Hernandez PA-C - Last Filed: 06/01/22 20:23> Initial Vital Signs Initial Vital Signs: Vital Signs Temperature 98.3 F 06/01/22 11:15 Pulse Rate 92 H 06/01/22 11:15 Respiratory Rate 16 06/01/22 11:15 Blood Pressure 160/70 H 06/01/22 11:15 Pulse Oximetry 98 06/01/22 11:15 Oxygen Delivery Method Room Air 06/01/22 11:15 <Wilfredo Grover DO - Last Filed: 06/02/22 06:40> Initial Vital Signs Initial Vital Signs: Vital Signs Temperature 98.3 F 06/01/22 11:15 Pulse Rate 92 H 06/01/22 11:15 Respiratory Rate 16 06/01/22 11:15 Blood Pressure 160/70 H 06/01/22 11:15 Pulse Oximetry 98 06/01/22 11:15 Oxygen Delivery Method Room Air 06/01/22 11:15 <Wilfredo Grover DO - Last Filed: 06/02/22 06:40> Central Line Placement Right IJ: Time Out Performed: Yes Patient Placed on Monitor/Pulse Ox: Yes MD Prep: mask, gown and gloves Central Line Prep: Chlorhexidine scrub and sterile drapes applied Local Anesthetic: lidocaine 2% Amount of anesthesia used (mL): 3 Ultrasound Used for Placement: Yes Central Line Lumen Inserted: triple Post Procedure: good blood return, all ports aspirated, flushed, capped, sterile dressing applied and line stabilization device Post Procedure X-Ray: tip of catheter in good position and no pneumothorax seen Patient Tolerated Procedure: Well Complications: none Course <Florentino Hernandez PA-C - Last Filed: 06/01/22 20:23> Orders Ordered: Acetaminophen (Acetaminophen 325 Mg Tablet) 650 mg PO Q6H PRN PRN Reason: Fever/Mild Pain (1-3) Last Admin: 06/02/22 01:19 Dose: 650 mg Documented By: HAI Carbidopa/Levodopa (Carbidopa-Levodopa 25/100 Tablet) 2 each PO 5XD [facility] Last Admin: 06/02/22 06:08 Dose: 2 each Documented By: Admin: 06/01/22 22:42 Dose: 2 each Documented By: HAI Dextrose (Dextrose 50 % In Water 25 Gm/50 Ml Syringe) 25 gm IV PRN PRN PRN Reason: Hypoglycemia Entacapone (Entacapone 200 Mg Tablet) 200 mg PO 5XD [facility] Last Admin: 06/02/22 06:22 Dose: Not Given Documented By: Admin: 06/01/22 22:56 Dose: Not Given Documented By: HAI Cefepime HCl 1 gm/ Sodium (Chloride) 100 mls @ 200 mls/hr IV Q12H [facility] Last Infusion: 06/02/22 01:42 Dose: 0 mls/hr Documented By: Admin: 06/02/22 01:12 Dose: 200 mls/hr Documented By: HAI Vancomycin HCl/Dextrose (Vancomycin) 1,500 mg in 300 mls @ 150 mls/hr IV Q12H [facility] Last Admin: 06/02/22 04:23 Dose: 150 mls/hr Documented By: HAI Insulin Glargine (Insulin Glargine 100 Unit/Ml 3ml Pen) 50 unit SUBCUT BID [facility] Last Admin: 04/25/23 22:41 Dose: 50 unit Documented By: HAI Co-signed By: DAVID Insulin Human Lispro (Insulin Lispro 100 Unit/Ml 3ml Vial) 0 unit SUBCUT [facility]; Protocol Last Admin: 06/01/22 22:57 Dose: Not Given Documented By: HAI Naloxone HCl (Naloxone 0.4 Mg/Ml Vial) 0.2 mg IV Q2MIN PRN PRN Reason: Opiate Reversal Non-Formulary Medication (Carbidopa-Levodopa) 1 tab PO BID [facility] Last Admin: 06/01/22 22:56 Dose: Not Given Documented By: HAI Non-Formulary Medication (Finasteride) 1 mg PO DAILY [facility] Non-Formulary Medication (Selegiline Hcl) 5 mg PO BID [facility] Last Admin: 06/01/22 22:57 Dose: Not Given Documented By: HAI Ondansetron HCl (Ondansetron 4 Mg/2 Ml Inj) 4 mg IV Q8HR PRN PRN Reason: Nausea And Vomiting Pantoprazole Sodium (Pantoprazole 40 Mg Vial) 40 mg IV BID [facility] Last Admin: 06/01/22 22:41 Dose: 40 mg Documented By: HAI Vancomycin HCl (Vancomycin Per Pharmacy) 1 request MISC NOW ONE Stop: 06/01/22 22:03 Discontinued Medications Acetaminophen (Acetaminophen 325 Mg Tablet) 650 mg PO NOW ONE Stop: 06/01/22 16:16 Last Admin: 06/01/22 16:19 Dose: 650 mg Documented By: AT Albuterol/Ipratropium (Albuterol/Ipratropium 3 Ml Ampul) 3 ml INH NOW ONE Stop: 06/01/22 14:18 Last Admin: 06/01/22 14:25 Dose: 3 ml Documented By: JANELLE Albuterol/Ipratropium (Albuterol/Ipratropium 3 Ml Ampul) 3 ml INH NOW ONE Stop: 06/01/22 14:36 Last Admin: 06/01/22 14:39 Dose: 3 ml Documented By: ENE Sodium Chloride 9 ml/ (Epinephrine HCl 0.1 mg) 0 ml IV NOW ONE Stop: 06/01/22 15:46 Last Admin: 06/01/22 17:08 Dose: 1 ml Documented By: AT Sodium Chloride (Normal Saline 0.9%) 3,156.99 mls @ 1,052.33 mls/hr 30 ml/kg infuse over 3 hr (2716.99 ml) IV NOW ONE Stop: 06/01/22 15:39 Last Infusion: 06/01/22 18:17 Dose: 0 mls/hr Documented By: Infusion: 06/01/22 17:20 Dose: 1,052.33 mls/hr Documented By: Infusion: 06/01/22 14:35 Dose: 0 mls/hr Documented By: Admin: 06/01/22 13:19 Dose: 1,052.33 mls/hr Documented By: AT Vancomycin HCl/Dextrose (Vancomycin) 1,500 mg in 300 mls @ 200 mls/hr IV NOW ONE Stop: 06/01/22 14:13 Last Infusion: 06/01/22 19:24 Dose: 0 mls/hr Documented By: Infusion: 06/01/22 17:05 Dose: 100 mls/hr Documented By: Admin: 06/01/22 16:34 Dose: 200 mls/hr Documented By: AT Cefepime HCl 2 gm/ Sodium (Chloride) 100 mls @ 200 mls/hr IV NOW ONE Stop: 06/01/22 12:45 Last Infusion: 06/01/22 14:45 Dose: 0 mls/hr Documented By: Admin: 06/01/22 14:11 Dose: 200 mls/hr Documented By: JANELLE Furosemide 80 mg/ Sodium (Chloride) 58 mls @ 116 mls/hr IV NOW ONE Stop: 06/01/22 14:19 Last Infusion: 06/01/22 14:55 Dose: 0 mls/hr Documented By: Admin: 06/01/22 14:25 Dose: 116 mls/hr Documented By: JANELLE Nitroglycerin (Nitroglycerin) 50 mg in 250 mls @ 60 mls/hr IV TITRATE [facility]; Protocol Last Admin: 06/01/22 18:47 Dose: Not Given Documented By: AT NOREPINEPHRINE BITARTRATE/D5W (Levophed) 4 mg in 250 mls @ 30 mls/hr IV TITRATE [facility]; Protocol Last Admin: 06/01/22 18:59 Dose: Not Given Documented By: AT Lorazepam (Lorazepam 2 Mg/Ml Inj) 0.5 mg IV NOW ONE Stop: 06/01/22 15:30 Last Admin: 06/01/22 16:01 Dose: 0.5 mg Documented By: AT Lorazepam (Lorazepam 2 Mg/Ml Inj) 1 mg IV NOW ONE Stop: 06/01/22 16:22 Last Admin: 06/01/22 16:24 Dose: 1 mg Documented By: AT Ondansetron HCl (Ondansetron 4 Mg/2 Ml Inj) 4 mg IV NOW PRN PRN Reason: Nausea And Vomiting Ondansetron HCl (Ondansetron 4 Mg Odt) 4 mg SL NOW PRN PRN Reason: Nausea And Vomiting Pantoprazole Sodium (Pantoprazole 40 Mg Vial) 80 mg IV NOW ONE Stop: 06/01/22 11:37 Last Admin: 06/01/22 13:20 Dose: 80 mg Documented By: AT Vital Signs Vital signs: Vital Signs - 8 hr 06/01/22 12:23 06/01/22 12:30 06/01/22 12:30 Temperature Pulse Rate 84 Respiratory Rate 26 H Blood Pressure 130/60 Pulse Oximetry 98 97 Oxygen Delivery Method Room Air Oxygen Flow Rate Fraction of Inspired Oxygen 06/01/22 13:00 06/01/22 13:05 06/01/22 13:05 Temperature Pulse Rate 87 88 Respiratory Rate 35 H 34 H Blood Pressure 128/88 Pulse Oximetry 98 Oxygen Delivery Method Oxygen Flow Rate Fraction of Inspired Oxygen 06/01/22 13:30 06/01/22 13:30 06/01/22 14:02 Temperature Pulse Rate 90 92 H Respiratory Rate 30 H Blood Pressure 170/73 H Pulse Oximetry 99 97 Oxygen Delivery Method Room Air Oxygen Flow Rate Fraction of Inspired Oxygen 06/01/22 14:03 06/01/22 14:03 06/01/22 14:20 Temperature 99.8 F H Pulse Rate 92 H Respiratory Rate 39 H Blood Pressure 140/62 Pulse Oximetry 97 Oxygen Delivery Method Room Air Oxygen Flow Rate Fraction of Inspired Oxygen 06/01/22 14:40 06/01/22 15:36 06/01/22 14:05 Temperature Pulse Rate 101 H 91 H Respiratory Rate 24 47 H Blood Pressure 123/56 L Pulse Oximetry 97 97 Oxygen Delivery Method Room Air Oxygen Flow Rate 0 Fraction of Inspired Oxygen 21 35 06/01/22 14:10 06/01/22 14:15 06/01/22 14:20 Temperature Pulse Rate 93 H 93 H 93 H Respiratory Rate 41 H 42 H 36 H Blood Pressure Pulse Oximetry 72 L 97 97 Oxygen Delivery Method Oxygen Flow Rate Fraction of Inspired Oxygen 06/01/22 14:25 06/01/22 14:30 06/01/22 14:30 Temperature Pulse Rate 95 H 97 H Respiratory Rate 32 H 32 H Blood Pressure 133/91 H Pulse Oximetry 97 98 Oxygen Delivery Method Oxygen Flow Rate Fraction of Inspired Oxygen 06/01/22 14:35 06/01/22 14:40 06/01/22 14:45 Temperature Pulse Rate 100 H 101 H 103 H Respiratory Rate 38 H 34 H 38 H Blood Pressure Pulse Oximetry 84 L 96 94 Oxygen Delivery Method Oxygen Flow Rate Fraction of Inspired Oxygen 06/01/22 14:50 06/01/22 14:55 06/01/22 15:00 Temperature Pulse Rate 106 H 109 H Respiratory Rate 39 H 41 H Blood Pressure 123/56 L Pulse Oximetry 95 93 Oxygen Delivery Method Oxygen Flow Rate Fraction of Inspired Oxygen 06/01/22 15:00 06/01/22 15:05 06/01/22 15:10 Temperature Pulse Rate 112 H 113 H 115 H Respiratory Rate 40 H 42 H 42 H Blood Pressure Pulse Oximetry 96 97 97 Oxygen Delivery Method Oxygen Flow Rate Fraction of Inspired Oxygen 06/01/22 15:15 06/01/22 15:20 06/01/22 15:25 Temperature Pulse Rate 113 H 113 H 114 H Respiratory Rate 43 H 39 H 25 H Blood Pressure Pulse Oximetry 99 96 94 Oxygen Delivery Method Oxygen Flow Rate Fraction of Inspired Oxygen 06/01/22 15:30 06/01/22 15:35 06/01/22 15:39 Temperature Pulse Rate 113 H 112 H Respiratory Rate 38 H 39 H Blood Pressure 104/63 Pulse Oximetry 97 97 Oxygen Delivery Method Oxygen Flow Rate Fraction of Inspired Oxygen 06/01/22 15:39 06/01/22 15:40 06/01/22 15:40 Temperature Pulse Rate 110 H 110 H Respiratory Rate 38 H 41 H Blood Pressure 137/60 Pulse Oximetry 97 97 Oxygen Delivery Method Oxygen Flow Rate Fraction of Inspired Oxygen 06/01/22 15:45 06/01/22 15:45 06/01/22 15:45 Temperature Pulse Rate 110 H Respiratory Rate 39 H Blood Pressure 128/58 L 128/58 L Pulse Oximetry 97 Oxygen Delivery Method Oxygen Flow Rate Fraction of Inspired Oxygen 06/01/22 15:50 06/01/22 15:50 06/01/22 15:50 Temperature Pulse Rate 109 H Respiratory Rate 37 H Blood Pressure 119/61 119/61 Pulse Oximetry 98 Oxygen Delivery Method Oxygen Flow Rate Fraction of Inspired Oxygen 06/01/22 15:55 06/01/22 15:55 06/01/22 15:55 Temperature Pulse Rate 108 H Respiratory Rate 33 H Blood Pressure 119/57 L 119/57 L Pulse Oximetry 99 Oxygen Delivery Method Oxygen Flow Rate Fraction of Inspired Oxygen 06/01/22 15:58 06/01/22 15:58 06/01/22 16:00 Temperature Pulse Rate 109 H Respiratory Rate 40 H Blood Pressure 121/59 L 116/58 L Pulse Oximetry 93 Oxygen Delivery Method Oxygen Flow Rate Fraction of Inspired Oxygen 06/01/22 16:00 06/01/22 16:05 06/01/22 16:05 Temperature Pulse Rate 107 H 105 H Respiratory Rate 36 H 37 H Blood Pressure 119/55 L Pulse Oximetry 99 97 Oxygen Delivery Method Oxygen Flow Rate Fraction of Inspired Oxygen 06/01/22 16:10 06/01/22 16:10 06/01/22 16:15 Temperature Pulse Rate 104 H Respiratory Rate 37 H Blood Pressure 117/56 L 115/61 Pulse Oximetry 97 Oxygen Delivery Method BiPAP Oxygen Flow Rate Fraction of Inspired Oxygen 06/01/22 16:15 06/01/22 16:20 06/01/22 16:20 Temperature Pulse Rate 104 H 105 H Respiratory Rate 35 H 37 H Blood Pressure 132/60 Pulse Oximetry 96 99 Oxygen Delivery Method Oxygen Flow Rate Fraction of Inspired Oxygen 06/01/22 16:25 06/01/22 16:30 06/01/22 16:31 Temperature Pulse Rate 106 H 104 H Respiratory Rate 33 H 36 H Blood Pressure 138/63 Pulse Oximetry 98 98 Oxygen Delivery Method Oxygen Flow Rate Fraction of Inspired Oxygen 06/01/22 16:31 06/01/22 16:48 06/01/22 17:11 Temperature 101.8 F H Pulse Rate 105 H Respiratory Rate 36 H Blood Pressure Pulse Oximetry 97 97 Oxygen Delivery Method BiPAP Heated High Flow Oxygen Flow Rate Fraction of Inspired Oxygen 06/01/22 16:49 06/01/22 16:35 06/01/22 16:36 Temperature Pulse Rate 101 H 104 H Respiratory Rate 32 H 36 H Blood Pressure 114/57 L 211/88 H Pulse Oximetry 97 100 Oxygen Delivery Method Oxygen Flow Rate Fraction of Inspired Oxygen 06/01/22 16:36 06/01/22 16:40 06/01/22 16:45 Temperature Pulse Rate 104 H 104 H 104 H Respiratory Rate 39 H 36 H 31 H Blood Pressure Pulse Oximetry 99 94 97 Oxygen Delivery Method Oxygen Flow Rate Fraction of Inspired Oxygen 06/01/22 16:46 06/01/22 16:46 06/01/22 16:50 Temperature Pulse Rate 103 H Respiratory Rate 33 H Blood Pressure 116/76 114/57 L Pulse Oximetry 97 Oxygen Delivery Method Oxygen Flow Rate Fraction of Inspired Oxygen 06/01/22 16:50 06/01/22 16:55 06/01/22 16:55 Temperature Pulse Rate 101 H 100 H Respiratory Rate 31 H 32 H Blood Pressure 101/56 L Pulse Oximetry 99 95 Oxygen Delivery Method Oxygen Flow Rate Fraction of Inspired Oxygen 06/01/22 17:00 06/01/22 17:00 06/01/22 17:05 Temperature Pulse Rate 98 H Respiratory Rate 31 H Blood Pressure 98/55 L 87/49 L Pulse Oximetry 95 Oxygen Delivery Method Heated High Flow Oxygen Flow Rate Fraction of Inspired Oxygen 06/01/22 17:05 06/01/22 17:06 06/01/22 17:06 Temperature Pulse Rate 97 H 97 H Respiratory Rate 32 H 32 H Blood Pressure 89/54 L Pulse Oximetry 95 94 Oxygen Delivery Method Oxygen Flow Rate Fraction of Inspired Oxygen 06/01/22 17:10 06/01/22 17:11 06/01/22 17:11 Temperature Pulse Rate 114 H 114 H Respiratory Rate 32 H 35 H Blood Pressure 145/72 H Pulse Oximetry 96 95 Oxygen Delivery Method Oxygen Flow Rate Fraction of Inspired Oxygen 06/01/22 17:15 06/01/22 17:17 06/01/22 17:17 Temperature Pulse Rate 105 H 101 H Respiratory Rate Blood Pressure 89/58 L Pulse Oximetry 96 96 Oxygen Delivery Method Oxygen Flow Rate Fraction of Inspired Oxygen 06/01/22 17:20 06/01/22 17:20 06/01/22 17:25 Temperature Pulse Rate 97 H Respiratory Rate Blood Pressure 93/56 L 95/53 L Pulse Oximetry 96 Oxygen Delivery Method Oxygen Flow Rate Fraction of Inspired Oxygen 06/01/22 17:25 06/01/22 17:30 06/01/22 17:30 Temperature Pulse Rate 95 H 93 H Respiratory Rate Blood Pressure 99/54 L Pulse Oximetry 96 97 Oxygen Delivery Method Oxygen Flow Rate Fraction of Inspired Oxygen 06/01/22 17:35 06/01/22 17:35 06/01/22 17:40 Temperature Pulse Rate 92 H Respiratory Rate 30 H Blood Pressure 87/52 L 88/55 L Pulse Oximetry 96 Oxygen Delivery Method Oxygen Flow Rate Fraction of Inspired Oxygen 06/01/22 17:40 06/01/22 17:45 06/01/22 17:45 Temperature Pulse Rate 91 H 91 H Respiratory Rate 31 H Blood Pressure 101/55 L Pulse Oximetry 95 96 Oxygen Delivery Method Oxygen Flow Rate Fraction of Inspired Oxygen 06/01/22 17:50 06/01/22 17:50 06/01/22 17:55 Temperature Pulse Rate 91 H Respiratory Rate 28 H Blood Pressure 101/56 L 100/59 L Pulse Oximetry 96 Oxygen Delivery Method Oxygen Flow Rate Fraction of Inspired Oxygen 06/01/22 17:55 06/01/22 18:00 06/01/22 18:00 Temperature Pulse Rate 88 87 Respiratory Rate 30 H 22 Blood Pressure 108/62 Pulse Oximetry 96 96 Oxygen Delivery Method Oxygen Flow Rate Fraction of Inspired Oxygen 06/01/22 18:05 06/01/22 18:05 06/01/22 18:10 Temperature Pulse Rate 86 Respiratory Rate 27 H Blood Pressure 114/62 114/58 L Pulse Oximetry 97 Oxygen Delivery Method Oxygen Flow Rate Fraction of Inspired Oxygen 06/01/22 18:10 06/01/22 18:15 06/01/22 18:15 Temperature Pulse Rate 85 83 Respiratory Rate 28 H 26 H Blood Pressure 108/55 L Pulse Oximetry 97 97 Oxygen Delivery Method Heated High Flow Oxygen Flow Rate 40 Fraction of Inspired Oxygen 06/01/22 18:20 06/01/22 18:20 06/01/22 18:25 Temperature Pulse Rate 82 Respiratory Rate 26 H Blood Pressure 104/58 L 103/58 L Pulse Oximetry 97 Oxygen Delivery Method Oxygen Flow Rate Fraction of Inspired Oxygen 06/01/22 18:25 06/01/22 18:30 06/01/22 18:30 Temperature Pulse Rate 81 80 Respiratory Rate 25 H 25 H Blood Pressure 100/57 L Pulse Oximetry 97 97 Oxygen Delivery Method Oxygen Flow Rate Fraction of Inspired Oxygen 06/01/22 18:35 06/01/22 18:35 06/01/22 18:40 Temperature Pulse Rate 79 Respiratory Rate 25 H Blood Pressure 97/54 L 98/54 L Pulse Oximetry 97 Oxygen Delivery Method Oxygen Flow Rate Fraction of Inspired Oxygen 06/01/22 18:40 06/01/22 18:45 06/01/22 18:45 Temperature Pulse Rate 78 78 Respiratory Rate 25 H 26 H Blood Pressure 102/59 L Pulse Oximetry 97 97 Oxygen Delivery Method Oxygen Flow Rate Fraction of Inspired Oxygen 06/01/22 18:50 06/01/22 18:50 06/01/22 18:55 Temperature Pulse Rate 77 Respiratory Rate 26 H Blood Pressure 103/56 L 102/56 L Pulse Oximetry 97 Oxygen Delivery Method Oxygen Flow Rate Fraction of Inspired Oxygen 06/01/22 18:55 06/01/22 19:00 06/01/22 19:00 Temperature Pulse Rate 76 76 Respiratory Rate 29 H 26 H Blood Pressure 103/56 L Pulse Oximetry 97 97 Oxygen Delivery Method Heated High Flow Oxygen Flow Rate Fraction of Inspired Oxygen 06/01/22 19:05 06/01/22 19:05 06/01/22 19:10 Temperature Pulse Rate 75 Respiratory Rate 26 H Blood Pressure 102/58 L 103/57 L Pulse Oximetry 97 Oxygen Delivery Method Oxygen Flow Rate Fraction of Inspired Oxygen 06/01/22 19:10 06/01/22 19:15 06/01/22 19:15 Temperature Pulse Rate 74 74 Respiratory Rate 23 24 Blood Pressure 105/55 L Pulse Oximetry 98 97 Oxygen Delivery Method Oxygen Flow Rate Fraction of Inspired Oxygen 06/01/22 19:20 06/01/22 19:20 06/01/22 19:25 Temperature Pulse Rate 74 Respiratory Rate 28 H Blood Pressure 107/56 L 105/57 L Pulse Oximetry 97 Oxygen Delivery Method Oxygen Flow Rate Fraction of Inspired Oxygen 06/01/22 19:25 06/01/22 19:30 06/01/22 19:30 Temperature Pulse Rate 74 75 Respiratory Rate 27 H 26 H Blood Pressure 106/61 Pulse Oximetry 97 98 Oxygen Delivery Method Oxygen Flow Rate Fraction of Inspired Oxygen 06/01/22 19:35 06/01/22 19:35 06/01/22 19:40 Temperature Pulse Rate 74 Respiratory Rate 27 H Blood Pressure 106/59 L 103/58 L Pulse Oximetry 98 Oxygen Delivery Method Oxygen Flow Rate Fraction of Inspired Oxygen 06/01/22 19:40 06/01/22 19:45 06/01/22 19:45 Temperature Pulse Rate 74 74 Respiratory Rate 27 H 25 H Blood Pressure 105/55 L Pulse Oximetry 98 98 Oxygen Delivery Method Heated High Flow Oxygen Flow Rate Fraction of Inspired Oxygen <Wilfredo Grover, DO - Last Filed: 06/02/22 06:40> Orders Ordered: Acetaminophen (Acetaminophen 325 Mg Tablet) 650 mg PO Q6H PRN PRN Reason: Fever/Mild Pain (1-3) Last Admin: 06/02/22 01:19 Dose: 650 mg Documented By: HAI Carbidopa/Levodopa (Carbidopa-Levodopa 25/100 Tablet) 2 each PO 5XD [facility] Last Admin: 06/02/22 06:08 Dose: 2 each Documented By: Admin: 06/01/22 22:42 Dose: 2 each Documented By: HAI Dextrose (Dextrose 50 % In Water 25 Gm/50 Ml Syringe) 25 gm IV PRN PRN PRN Reason: Hypoglycemia Entacapone (Entacapone 200 Mg Tablet) 200 mg PO 5XD [facility] Last Admin: 06/02/22 06:22 Dose: Not Given Documented By: Admin: 06/01/22 22:56 Dose: Not Given Documented By: HAI Cefepime HCl 1 gm/ Sodium (Chloride) 100 mls @ 200 mls/hr IV Q12H [facility] Last Infusion: 06/02/22 01:42 Dose: 0 mls/hr Documented By: Admin: 06/02/22 01:12 Dose: 200 mls/hr Documented By: HAI Vancomycin HCl/Dextrose (Vancomycin) 1,500 mg in 300 mls @ 150 mls/hr IV Q12H [facility] Last Admin: 06/02/22 04:23 Dose: 150 mls/hr Documented By: HAI Insulin Glargine (Insulin Glargine 100 Unit/Ml 3ml Pen) 50 unit SUBCUT BID [facility] Last Admin: 06/01/22 22:41 Dose: 50 unit Documented By: HAI Co-signed By: DAVID Insulin Human Lispro (Insulin Lispro 100 Unit/Ml 3ml Vial) 0 unit SUBCUT [facility]; Protocol Last Admin: 06/01/22 22:57 Dose: Not Given Documented By: HAI Naloxone HCl (Naloxone 0.4 Mg/Ml Vial) 0.2 mg IV Q2MIN PRN PRN Reason: Opiate Reversal Non-Formulary Medication (Carbidopa-Levodopa) 1 tab PO BID [facility] Last Admin: 06/01/22 22:56 Dose: Not Given Documented By: HAI Non-Formulary Medication (Finasteride) 1 mg PO DAILY [facility] Non-Formulary Medication (Selegiline Hcl) 5 mg PO BID [facility] Last Admin: 06/01/22 22:57 Dose: Not Given Documented By: HAI Ondansetron HCl (Ondansetron 4 Mg/2 Ml Inj) 4 mg IV Q8HR PRN PRN Reason: Nausea And Vomiting Pantoprazole Sodium (Pantoprazole 40 Mg Vial) 40 mg IV BID [facility] Last Admin: 06/01/22 22:41 Dose: 40 mg Documented By: HAI Vancomycin HCl (Vancomycin Per Pharmacy) 1 request MISC NOW ONE Stop: 06/01/22 22:03 Discontinued Medications Acetaminophen (Acetaminophen 325 Mg Tablet) 650 mg PO NOW ONE Stop: 06/01/22 16:16 Last Admin: 06/01/22 16:19 Dose: 650 mg Documented By: AT Albuterol/Ipratropium (Albuterol/Ipratropium 3 Ml Ampul) 3 ml INH NOW ONE Stop: 06/01/22 14:18 Last Admin: 06/01/22 14:25 Dose: 3 ml Documented By: JANELLE Albuterol/Ipratropium (Albuterol/Ipratropium 3 Ml Ampul) 3 ml INH NOW ONE Stop: 06/01/22 14:36 Last Admin: 06/01/22 14:39 Dose: 3 ml Documented By: ENE Sodium Chloride 9 ml/ (Epinephrine HCl 0.1 mg) 0 ml IV NOW ONE Stop: 06/01/22 15:46 Last Admin: 06/01/22 17:08 Dose: 1 ml Documented By: AT Sodium Chloride (Normal Saline 0.9%) 3,156.99 mls @ 1,052.33 mls/hr 30 ml/kg infuse over 3 hr (3156.99 ml) IV NOW ONE Stop: 06/01/22 15:39 Last Infusion: 06/01/22 18:17 Dose: 0 mls/hr Documented By: Infusion: 06/01/22 17:20 Dose: 1,052.33 mls/hr Documented By: Infusion: 06/01/22 14:35 Dose: 0 mls/hr Documented By: Admin: 06/01/22 13:19 Dose: 1,052.33 mls/hr Documented By: AT Vancomycin HCl/Dextrose (Vancomycin) 1,500 mg in 300 mls @ 200 mls/hr IV NOW ONE Stop: 06/01/22 14:13 Last Infusion: 06/01/22 19:24 Dose: 0 mls/hr Documented By: Infusion: 06/01/22 17:05 Dose: 100 mls/hr Documented By: Admin: 06/01/22 16:34 Dose: 200 mls/hr Documented By: AT Cefepime HCl 2 gm/ Sodium (Chloride) 100 mls @ 200 mls/hr IV NOW ONE Stop: 06/01/22 12:45 Last Infusion: 06/01/22 14:45 Dose: 0 mls/hr Documented By: Admin: 06/01/22 14:11 Dose: 200 mls/hr Documented By: JANELLE Furosemide 80 mg/ Sodium (Chloride) 58 mls @ 116 mls/hr IV NOW ONE Stop: 06/01/22 14:19 Last Infusion: 06/01/22 14:55 Dose: 0 mls/hr Documented By: Admin: 06/01/22 14:25 Dose: 116 mls/hr Documented By: JANELLE Nitroglycerin (Nitroglycerin) 50 mg in 250 mls @ 60 mls/hr IV TITRATE KONG; Protocol Last Admin: 06/01/22 18:47 Dose: Not Given Documented By: AT NOREPINEPHRINE BITARTRATE/D5W (Levophed) 4 mg in 250 mls @ 30 mls/hr IV TITRATE KONG; Protocol Last Admin: 06/01/22 18:59 Dose: Not Given Documented By: AT Lorazepam (Lorazepam 2 Mg/Ml Inj) 0.5 mg IV NOW ONE Stop: 06/01/22 15:30 Last Admin: 06/01/22 16:01 Dose: 0.5 mg Documented By: AT Lorazepam (Lorazepam 2 Mg/Ml Inj) 1 mg IV NOW ONE Stop: 06/01/22 16:22 Last Admin: 06/01/22 16:24 Dose: 1 mg Documented By: AT Ondansetron HCl (Ondansetron 4 Mg/2 Ml Inj) 4 mg IV NOW PRN PRN Reason: Nausea And Vomiting Ondansetron HCl (Ondansetron 4 Mg Odt) 4 mg SL NOW PRN PRN Reason: Nausea And Vomiting Pantoprazole Sodium (Pantoprazole 40 Mg Vial) 80 mg IV NOW ONE Stop: 06/01/22 11:37 Last Admin: 06/01/22 13:20 Dose: 80 mg Documented By: AT Vital Signs Vital signs: Vital Signs - 8 hr 06/01/22 12:23 06/01/22 12:30 06/01/22 12:30 Temperature Pulse Rate 84 Respiratory Rate 26 H Blood Pressure 130/60 Pulse Oximetry 98 97 Oxygen Delivery Method Room Air Oxygen Flow Rate Fraction of Inspired Oxygen 06/01/22 13:00 06/01/22 13:05 06/01/22 13:05 Temperature Pulse Rate 87 88 Respiratory Rate 35 H 34 H Blood Pressure 128/88 Pulse Oximetry 98 Oxygen Delivery Method Oxygen Flow Rate Fraction of Inspired Oxygen 06/01/22 13:30 06/01/22 13:30 06/01/22 14:02 Temperature Pulse Rate 90 92 H Respiratory Rate 30 H Blood Pressure 170/73 H Pulse Oximetry 99 97 Oxygen Delivery Method Room Air Oxygen Flow Rate Fraction of Inspired Oxygen 06/01/22 14:03 06/01/22 14:03 06/01/22 14:20 Temperature 99.8 F H Pulse Rate 92 H Respiratory Rate 39 H Blood Pressure 140/62 Pulse Oximetry 97 Oxygen Delivery Method Room Air Oxygen Flow Rate Fraction of Inspired Oxygen 06/01/22 14:40 06/01/22 15:36 06/01/22 14:05 Temperature Pulse Rate 101 H 91 H Respiratory Rate 24 47 H Blood Pressure 123/56 L Pulse Oximetry 97 97 Oxygen Delivery Method Room Air Oxygen Flow Rate 0 Fraction of Inspired Oxygen 21 35 06/01/22 14:10 06/01/22 14:15 06/01/22 14:20 Temperature Pulse Rate 93 H 93 H 93 H Respiratory Rate 41 H 42 H 36 H Blood Pressure Pulse Oximetry 72 L 97 97 Oxygen Delivery Method Oxygen Flow Rate Fraction of Inspired Oxygen 06/01/22 14:25 06/01/22 14:30 06/01/22 14:30 Temperature Pulse Rate 95 H 97 H Respiratory Rate 32 H 32 H Blood Pressure 133/91 H Pulse Oximetry 97 98 Oxygen Delivery Method Oxygen Flow Rate Fraction of Inspired Oxygen 06/01/22 14:35 06/01/22 14:40 06/01/22 14:45 Temperature Pulse Rate 100 H 101 H 103 H Respiratory Rate 38 H 34 H 38 H Blood Pressure Pulse Oximetry 84 L 96 94 Oxygen Delivery Method Oxygen Flow Rate Fraction of Inspired Oxygen 06/01/22 14:50 06/01/22 14:55 06/01/22 15:00 Temperature Pulse Rate 106 H 109 H Respiratory Rate 39 H 41 H Blood Pressure 123/56 L Pulse Oximetry 95 93 Oxygen Delivery Method Oxygen Flow Rate Fraction of Inspired Oxygen 06/01/22 15:00 06/01/22 15:05 06/01/22 15:10 Temperature Pulse Rate 112 H 113 H 115 H Respiratory Rate 40 H 42 H 42 H Blood Pressure Pulse Oximetry 96 97 97 Oxygen Delivery Method Oxygen Flow Rate Fraction of Inspired Oxygen 06/01/22 15:15 06/01/22 15:20 06/01/22 15:25 Temperature Pulse Rate 113 H 113 H 114 H Respiratory Rate 43 H 39 H 25 H Blood Pressure Pulse Oximetry 99 96 94 Oxygen Delivery Method Oxygen Flow Rate Fraction of Inspired Oxygen 06/01/22 15:30 06/01/22 15:35 06/01/22 15:39 Temperature Pulse Rate 113 H 112 H Respiratory Rate 38 H 39 H Blood Pressure 104/63 Pulse Oximetry 97 97 Oxygen Delivery Method Oxygen Flow Rate Fraction of Inspired Oxygen 06/01/22 15:39 06/01/22 15:40 06/01/22 15:40 Temperature Pulse Rate 110 H 110 H Respiratory Rate 38 H 41 H Blood Pressure 137/60 Pulse Oximetry 97 97 Oxygen Delivery Method Oxygen Flow Rate Fraction of Inspired Oxygen 06/01/22 15:45 06/01/22 15:45 06/01/22 15:45 Temperature Pulse Rate 110 H Respiratory Rate 39 H Blood Pressure 128/58 L 128/58 L Pulse Oximetry 97 Oxygen Delivery Method Oxygen Flow Rate Fraction of Inspired Oxygen 06/01/22 15:50 06/01/22 15:50 06/01/22 15:50 Temperature Pulse Rate 109 H Respiratory Rate 37 H Blood Pressure 119/61 119/61 Pulse Oximetry 98 Oxygen Delivery Method Oxygen Flow Rate Fraction of Inspired Oxygen 06/01/22 15:55 06/01/22 15:55 06/01/22 15:55 Temperature Pulse Rate 108 H Respiratory Rate 33 H Blood Pressure 119/57 L 119/57 L Pulse Oximetry 99 Oxygen Delivery Method Oxygen Flow Rate Fraction of Inspired Oxygen 06/01/22 15:58 06/01/22 15:58 06/01/22 16:00 Temperature Pulse Rate 109 H Respiratory Rate 40 H Blood Pressure 121/59 L 116/58 L Pulse Oximetry 93 Oxygen Delivery Method Oxygen Flow Rate Fraction of Inspired Oxygen 06/01/22 16:00 06/01/22 16:05 06/01/22 16:05 Temperature Pulse Rate 107 H 105 H Respiratory Rate 36 H 37 H Blood Pressure 119/55 L Pulse Oximetry 99 97 Oxygen Delivery Method Oxygen Flow Rate Fraction of Inspired Oxygen 06/01/22 16:10 06/01/22 16:10 06/01/22 16:15 Temperature Pulse Rate 104 H Respiratory Rate 37 H Blood Pressure 117/56 L 115/61 Pulse Oximetry 97 Oxygen Delivery Method BiPAP Oxygen Flow Rate Fraction of Inspired Oxygen 06/01/22 16:15 06/01/22 16:20 06/01/22 16:20 Temperature Pulse Rate 104 H 105 H Respiratory Rate 35 H 37 H Blood Pressure 132/60 Pulse Oximetry 96 99 Oxygen Delivery Method Oxygen Flow Rate Fraction of Inspired Oxygen 06/01/22 16:25 06/01/22 16:30 06/01/22 16:31 Temperature Pulse Rate 106 H 104 H Respiratory Rate 33 H 36 H Blood Pressure 138/63 Pulse Oximetry 98 98 Oxygen Delivery Method Oxygen Flow Rate Fraction of Inspired Oxygen 06/01/22 16:31 06/01/22 16:48 06/01/22 17:11 Temperature 101.8 F H Pulse Rate 105 H Respiratory Rate 36 H Blood Pressure Pulse Oximetry 97 97 Oxygen Delivery Method BiPAP Heated High Flow Oxygen Flow Rate Fraction of Inspired Oxygen 06/01/22 16:49 06/01/22 16:35 06/01/22 16:36 Temperature Pulse Rate 101 H 104 H Respiratory Rate 32 H 36 H Blood Pressure 114/57 L 211/88 H Pulse Oximetry 97 100 Oxygen Delivery Method Oxygen Flow Rate Fraction of Inspired Oxygen 06/01/22 16:36 06/01/22 16:40 06/01/22 16:45 Temperature Pulse Rate 104 H 104 H 104 H Respiratory Rate 39 H 36 H 31 H Blood Pressure Pulse Oximetry 99 94 97 Oxygen Delivery Method Oxygen Flow Rate Fraction of Inspired Oxygen 06/01/22 16:46 06/01/22 16:46 06/01/22 16:50 Temperature Pulse Rate 103 H Respiratory Rate 33 H Blood Pressure 116/76 114/57 L Pulse Oximetry 97 Oxygen Delivery Method Oxygen Flow Rate Fraction of Inspired Oxygen 06/01/22 16:50 06/01/22 16:55 06/01/22 16:55 Temperature Pulse Rate 101 H 100 H Respiratory Rate 31 H 32 H Blood Pressure 101/56 L Pulse Oximetry 99 95 Oxygen Delivery Method Oxygen Flow Rate Fraction of Inspired Oxygen 06/01/22 17:00 06/01/22 17:00 06/01/22 17:05 Temperature Pulse Rate 98 H Respiratory Rate 31 H Blood Pressure 98/55 L 87/49 L Pulse Oximetry 95 Oxygen Delivery Method Heated High Flow Oxygen Flow Rate Fraction of Inspired Oxygen 06/01/22 17:05 06/01/22 17:06 06/01/22 17:06 Temperature Pulse Rate 97 H 97 H Respiratory Rate 32 H 32 H Blood Pressure 89/54 L Pulse Oximetry 95 94 Oxygen Delivery Method Oxygen Flow Rate Fraction of Inspired Oxygen 06/01/22 17:10 06/01/22 17:11 06/01/22 17:11 Temperature Pulse Rate 114 H 114 H Respiratory Rate 32 H 35 H Blood Pressure 145/72 H Pulse Oximetry 96 95 Oxygen Delivery Method Oxygen Flow Rate Fraction of Inspired Oxygen 06/01/22 17:15 06/01/22 17:17 06/01/22 17:17 Temperature Pulse Rate 105 H 101 H Respiratory Rate Blood Pressure 89/58 L Pulse Oximetry 96 96 Oxygen Delivery Method Oxygen Flow Rate Fraction of Inspired Oxygen 06/01/22 17:20 06/01/22 17:20 06/01/22 17:25 Temperature Pulse Rate 97 H Respiratory Rate Blood Pressure 93/56 L 95/53 L Pulse Oximetry 96 Oxygen Delivery Method Oxygen Flow Rate Fraction of Inspired Oxygen 06/01/22 17:25 06/01/22 17:30 06/01/22 17:30 Temperature Pulse Rate 95 H 93 H Respiratory Rate Blood Pressure 99/54 L Pulse Oximetry 96 97 Oxygen Delivery Method Oxygen Flow Rate Fraction of Inspired Oxygen 06/01/22 17:35 06/01/22 17:35 06/01/22 17:40 Temperature Pulse Rate 92 H Respiratory Rate 30 H Blood Pressure 87/52 L 88/55 L Pulse Oximetry 96 Oxygen Delivery Method Oxygen Flow Rate Fraction of Inspired Oxygen 06/01/22 17:40 06/01/22 17:45 06/01/22 17:45 Temperature Pulse Rate 91 H 91 H Respiratory Rate 31 H Blood Pressure 101/55 L Pulse Oximetry 95 96 Oxygen Delivery Method Oxygen Flow Rate Fraction of Inspired Oxygen 06/01/22 17:50 06/01/22 17:50 06/01/22 17:55 Temperature Pulse Rate 91 H Respiratory Rate 28 H Blood Pressure 101/56 L 100/59 L Pulse Oximetry 96 Oxygen Delivery Method Oxygen Flow Rate Fraction of Inspired Oxygen 06/01/22 17:55 06/01/22 18:00 06/01/22 18:00 Temperature Pulse Rate 88 87 Respiratory Rate 30 H 22 Blood Pressure 108/62 Pulse Oximetry 96 96 Oxygen Delivery Method Oxygen Flow Rate Fraction of Inspired Oxygen 06/01/22 18:05 06/01/22 18:05 06/01/22 18:10 Temperature Pulse Rate 86 Respiratory Rate 27 H Blood Pressure 114/62 114/58 L Pulse Oximetry 97 Oxygen Delivery Method Oxygen Flow Rate Fraction of Inspired Oxygen 06/01/22 18:10 06/01/22 18:15 06/01/22 18:15 Temperature Pulse Rate 85 83 Respiratory Rate 28 H 26 H Blood Pressure 108/55 L Pulse Oximetry 97 97 Oxygen Delivery Method Heated High Flow Oxygen Flow Rate 40 Fraction of Inspired Oxygen 06/01/22 18:20 06/01/22 18:20 06/01/22 18:25 Temperature Pulse Rate 82 Respiratory Rate 26 H Blood Pressure 104/58 L 103/58 L Pulse Oximetry 97 Oxygen Delivery Method Oxygen Flow Rate Fraction of Inspired Oxygen 06/01/22 18:25 06/01/22 18:30 06/01/22 18:30 Temperature Pulse Rate 81 80 Respiratory Rate 25 H 25 H Blood Pressure 100/57 L Pulse Oximetry 97 97 Oxygen Delivery Method Oxygen Flow Rate Fraction of Inspired Oxygen 06/01/22 18:35 06/01/22 18:35 06/01/22 18:40 Temperature Pulse Rate 79 Respiratory Rate 25 H Blood Pressure 97/54 L 98/54 L Pulse Oximetry 97 Oxygen Delivery Method Oxygen Flow Rate Fraction of Inspired Oxygen 06/01/22 18:40 06/01/22 18:45 06/01/22 18:45 Temperature Pulse Rate 78 78 Respiratory Rate 25 H 26 H Blood Pressure 102/59 L Pulse Oximetry 97 97 Oxygen Delivery Method Oxygen Flow Rate Fraction of Inspired Oxygen 06/01/22 18:50 06/01/22 18:50 06/01/22 18:55 Temperature Pulse Rate 77 Respiratory Rate 26 H Blood Pressure 103/56 L 102/56 L Pulse Oximetry 97 Oxygen Delivery Method Oxygen Flow Rate Fraction of Inspired Oxygen 06/01/22 18:55 06/01/22 19:00 06/01/22 19:00 Temperature Pulse Rate 76 76 Respiratory Rate 29 H 26 H Blood Pressure 103/56 L Pulse Oximetry 97 97 Oxygen Delivery Method Heated High Flow Oxygen Flow Rate Fraction of Inspired Oxygen 06/01/22 19:05 06/01/22 19:05 06/01/22 19:10 Temperature Pulse Rate 75 Respiratory Rate 26 H Blood Pressure 102/58 L 103/57 L Pulse Oximetry 97 Oxygen Delivery Method Oxygen Flow Rate Fraction of Inspired Oxygen 06/01/22 19:10 06/01/22 19:15 06/01/22 19:15 Temperature Pulse Rate 74 74 Respiratory Rate 23 24 Blood Pressure 105/55 L Pulse Oximetry 98 97 Oxygen Delivery Method Oxygen Flow Rate Fraction of Inspired Oxygen 06/01/22 19:20 06/01/22 19:20 06/01/22 19:25 Temperature Pulse Rate 74 Respiratory Rate 28 H Blood Pressure 107/56 L 105/57 L Pulse Oximetry 97 Oxygen Delivery Method Oxygen Flow Rate Fraction of Inspired Oxygen 06/01/22 19:25 06/01/22 19:30 06/01/22 19:30 Temperature Pulse Rate 74 75 Respiratory Rate 27 H 26 H Blood Pressure 106/61 Pulse Oximetry 97 98 Oxygen Delivery Method Oxygen Flow Rate Fraction of Inspired Oxygen 06/01/22 19:35 06/01/22 19:35 06/01/22 19:40 Temperature Pulse Rate 74 Respiratory Rate 27 H Blood Pressure 106/59 L 103/58 L Pulse Oximetry 98 Oxygen Delivery Method Oxygen Flow Rate Fraction of Inspired Oxygen 06/01/22 19:40 06/01/22 19:45 06/01/22 19:45 Temperature Pulse Rate 74 74 Respiratory Rate 27 H 25 H Blood Pressure 105/55 L Pulse Oximetry 98 98 Oxygen Delivery Method Heated High Flow Oxygen Flow Rate Fraction of Inspired Oxygen MDM - GI Bleed <Florentino Hernandez PA-C - Last Filed: 06/01/22 20:23> Lab Data 06/02/22 04:27 06/02/22 04:27 Labs: Lab Results 06/01/22 06/01/22 06/01/22 Range/Units 11:48 11:48 11:48 WBC 15.5 H (4.5-11.0) X10^3/uL RBC 3.92 L (4.5-5.9) X10^6/uL Hgb 10.7 L (13.5-17.5) g/dL Hct 32.4 L (41-53) % MCV 82.7 (80-100) fL MCH 27.3 (26-34) PG MCHC 33.0 (30-36) % RDW 16.6 H (11.6-14.8) % Plt Count 266 (150-400) X10^3/uL Neut % (Auto) 86.1 H (50-75) % Lymph % (Auto) 6.3 L (25-40) % [place] % (Auto) 7.0 (3-14) % Eos % (Auto) 0.1 L (2-4) % Baso % (Auto) 0.5 (0-2) % Neut # (Auto) 24458 H (1282-5179) /uL Lymph # (Auto) 1000 L (4562-1998) /uL [place] # (Auto) 1100 H (0-900) /uL Eos # (Auto) 0 (0-450) /uL Baso # (Auto) 100 (0-100) /uL PT 15.4 H (10.1-12.7) SECONDS INR 1.3 (0.9-1.3) APTT 28 (26-36) SECONDS ABG pH (7.35-7.45) ABG pCO2 (35-45) mmHg ABG pO2 (80-100) mmHg ABG HCO3 (23-27) mmol/L ABG Total CO2 (23-27) mmol/L ABG O2 Saturation (95-100) % ABG Base Excess (-2-3) mmol/L FiO2 Sodium 134 L (137-145) mmol/L Potassium 4.2 (3.4-5.1) mmol/L Chloride 101 (98-107) mmol/L Carbon Dioxide 23 (22-32) mmol/L BUN 25 H (9-20) mg/dL Creatinine 1.26 H (0.66-1.25) mg/dL Estimated GFR > 60 (>60) mL/min BUN/Creatinine Ratio 19.8 (6-22) Glucose 196 H (80-110) mg/dL Lactate (0.7-2.1) mmol/L Calcium 9.4 (8.4-10.2) mg/dL Total Bilirubin 0.7 (0.2-1.3) mg/dL AST 18 (17-59) IU/L ALT 16 (<50) IU/L Alkaline Phosphatase 91 (38-126) U/L Total Creatine Kinase (55-170) U/L CK-MB (CK-2) CK-MB (CK-2) Rel Index Troponin I (0.01-0.034) ng/mL NT-Pro-B Natriuret Pep (<125) pg/mL Total Protein 7.2 (6.3-8.2) g/dL Albumin 3.7 (3.5-5.0) g/dL Globulin 3.5 (1.7-4.1) g/dL Albumin/Globulin Ratio 1.1 (1.0-2.8) Procalcitonin (<0.5) ng/mL Urine Color Urine Appearance Urine pH (4.5-8.0) Ur Specific [place] (1.000-1.035) Urine Protein (Negative) Urine Glucose (UA) (Negative) g/dL Urine Ketones (NEGATIVE) Urine Occult Blood (Negative) Urine Nitrate (Negative) Urine Bilirubin (NEGATIVE) Urine Urobilinogen (0.2) E.U./dL Ur Leukocyte Esterase (NEGATIVE) Urine RBC (0-5/HPF) Urine WBC (0-5/HPF) Ur Squamous Epith Cells (0-5/HPF) Urine Bacteria (None) Ur Culture Indicated? Chlamy pneumoniae PCR (Not Detect) Adenovirus (PCR) (Not Detect) B. pertussis DNA (PCR) (Not Detecte) B.parapertussis DNA PCR (Not Detecte) Coronavirus OC43 (PCR) (Not Detect) Coronavirus HKU1 (PCR) (Not Detect) Coronavirus 229E (PCR) (Not Detect) SARS-CoV-2 (PCR) (Not Detecte) Coronavirus NL63 (PCR) (Not Detect) Human Metapneumovir PCR (Not Detect) Influenza Type A (PCR) (Not Detect) Influenza Type B (PCR) (Not Detect) M. pneumoniae (PCR) (Not Detect) Parainfluenza 1 (PCR) (Not Detect) Parainfluenza 2 (PCR) (Not Detect) Parainfluenza 3 (PCR) (Not Detect) Parainfluenza 4 (PCR) (Not Detect) RSV (PCR) (Not Detect) Entero/Rhino (PCR) (Not Detect) Blood Type Antibody Screen 06/01/22 06/01/22 06/01/22 Range/Units 11:48 11:48 12:39 WBC (4.5-11.0) X10^3/uL RBC (4.5-5.9) X10^6/uL Hgb (13.5-17.5) g/dL Hct (41-53) % MCV (80-100) fL MCH (26-34) PG MCHC (30-36) % RDW (11.6-14.8) % Plt Count (150-400) X10^3/uL Neut % (Auto) (50-75) % Lymph % (Auto) (25-40) % [place] % (Auto) (3-14) % Eos % (Auto) (2-4) % Baso % (Auto) (0-2) % Neut # (Auto) (0962-3524) /uL Lymph # (Auto) (4171-6661) /uL [place] # (Auto) (0-900) /uL Eos # (Auto) (0-450) /uL Baso # (Auto) (0-100) /uL PT (10.1-12.7) SECONDS INR (0.9-1.3) APTT (26-36) SECONDS ABG pH (7.35-7.45) ABG pCO2 (35-45) mmHg ABG pO2 (80-100) mmHg ABG HCO3 (23-27) mmol/L ABG Total CO2 (23-27) mmol/L ABG O2 Saturation (95-100) % ABG Base Excess (-2-3) mmol/L FiO2 Sodium (137-145) mmol/L Potassium (3.4-5.1) mmol/L Chloride (98-107) mmol/L Carbon Dioxide (22-32) mmol/L BUN (9-20) mg/dL Creatinine (0.66-1.25) mg/dL Estimated GFR (>60) mL/min BUN/Creatinine Ratio (6-22) Glucose (80-110) mg/dL Lactate 3.7 H (0.7-2.1) mmol/L Calcium (8.4-10.2) mg/dL Total Bilirubin (0.2-1.3) mg/dL AST (17-59) IU/L ALT (<50) IU/L Alkaline Phosphatase (38-126) U/L Total Creatine Kinase (55-170) U/L CK-MB (CK-2) CK-MB (CK-2) Rel Index Troponin I (0.01-0.034) ng/mL NT-Pro-B Natriuret Pep (<125) pg/mL Total Protein (6.3-8.2) g/dL Albumin (3.5-5.0) g/dL Globulin (1.7-4.1) g/dL Albumin/Globulin Ratio (1.0-2.8) Procalcitonin 0.36 (<0.5) ng/mL Urine Color Urine Appearance Urine pH (4.5-8.0) Ur Specific [place] (1.000-1.035) Urine Protein (Negative) Urine Glucose (UA) (Negative) g/dL Urine Ketones (NEGATIVE) Urine Occult Blood (Negative) Urine Nitrate (Negative) Urine Bilirubin (NEGATIVE) Urine Urobilinogen (0.2) E.U./dL Ur Leukocyte Esterase (NEGATIVE) Urine RBC (0-5/HPF) Urine WBC (0-5/HPF) Ur Squamous Epith Cells (0-5/HPF) Urine Bacteria (None) Ur Culture Indicated? Chlamy pneumoniae PCR (Not Detect) Adenovirus (PCR) (Not Detect) B. pertussis DNA (PCR) (Not Detecte) B.parapertussis DNA PCR (Not Detecte) Coronavirus OC43 (PCR) (Not Detect) Coronavirus HKU1 (PCR) (Not Detect) Coronavirus 229E (PCR) (Not Detect) SARS-CoV-2 (PCR) (Not Detecte) Coronavirus NL63 (PCR) (Not Detect) Human Metapneumovir PCR (Not Detect) Influenza Type A (PCR) (Not Detect) Influenza Type B (PCR) (Not Detect) M. pneumoniae (PCR) (Not Detect) Parainfluenza 1 (PCR) (Not Detect) Parainfluenza 2 (PCR) (Not Detect) Parainfluenza 3 (PCR) (Not Detect) Parainfluenza 4 (PCR) (Not Detect) RSV (PCR) (Not Detect) Entero/Rhino (PCR) (Not Detect) Blood Type AB Positive Antibody Screen Negative 06/01/22 06/01/22 06/01/22 Range/Units 13:24 13:31 13:45 WBC (4.5-11.0) X10^3/uL RBC (4.5-5.9) X10^6/uL Hgb (13.5-17.5) g/dL Hct (41-53) % MCV (80-100) fL MCH (26-34) PG MCHC (30-36) % RDW (11.6-14.8) % Plt Count (150-400) X10^3/uL Neut % (Auto) (50-75) % Lymph % (Auto) (25-40) % [place] % (Auto) (3-14) % Eos % (Auto) (2-4) % Baso % (Auto) (0-2) % Neut # (Auto) (3886-7480) /uL Lymph # (Auto) (0135-0585) /uL [place] # (Auto) (0-900) /uL Eos # (Auto) (0-450) /uL Baso # (Auto) (0-100) /uL PT (10.1-12.7) SECONDS INR (0.9-1.3) APTT (26-36) SECONDS ABG pH (7.35-7.45) ABG pCO2 (35-45) mmHg ABG pO2 (80-100) mmHg ABG HCO3 (23-27) mmol/L ABG Total CO2 (23-27) mmol/L ABG O2 Saturation (95-100) % ABG Base Excess (-2-3) mmol/L FiO2 Sodium (137-145) mmol/L Potassium (3.4-5.1) mmol/L Chloride (98-107) mmol/L Carbon Dioxide (22-32) mmol/L BUN (9-20) mg/dL Creatinine (0.66-1.25) mg/dL Estimated GFR (>60) mL/min BUN/Creatinine Ratio (6-22) Glucose (80-110) mg/dL Lactate (0.7-2.1) mmol/L Calcium (8.4-10.2) mg/dL Total Bilirubin (0.2-1.3) mg/dL AST (17-59) IU/L ALT (<50) IU/L Alkaline Phosphatase (38-126) U/L Total Creatine Kinase 78 (55-170) U/L CK-MB (CK-2) TNP CK-MB (CK-2) Rel Index TNP Troponin I 0.016 (0.01-0.034) ng/mL NT-Pro-B Natriuret Pep 637 H (<125) pg/mL Total Protein (6.3-8.2) g/dL Albumin (3.5-5.0) g/dL Globulin (1.7-4.1) g/dL Albumin/Globulin Ratio (1.0-2.8) Procalcitonin (<0.5) ng/mL Urine Color Yellow Urine Appearance Clear Urine pH 6.5 (4.5-8.0) Ur Specific [place] 1.010 (1.000-1.035) Urine Protein 1+ H (Negative) Urine Glucose (UA) Trace H (Negative) g/dL Urine Ketones Negative (NEGATIVE) Urine Occult Blood 1+ H (Negative) Urine Nitrate Positive H (Negative) Urine Bilirubin Negative (NEGATIVE) Urine Urobilinogen 1.0 (0.2) E.U./dL Ur Leukocyte Esterase 1+ H (NEGATIVE) Urine RBC 5-10/hpf H (0-5/HPF) Urine WBC 10-30/hpf H (0-5/HPF) Ur Squamous Epith Cells 0-1 /hpf (0-5/HPF) Urine Bacteria Many (>30) H (None) Ur Culture Indicated? Specimen cultured Chlamy pneumoniae PCR Not detected (Not Detect) Adenovirus (PCR) Not detected (Not Detect) B. pertussis DNA (PCR) Not detected (Not Detecte) B.parapertussis DNA PCR Not detected (Not Detecte) Coronavirus OC43 (PCR) Not detected (Not Detect) Coronavirus HKU1 (PCR) Not detected (Not Detect) Coronavirus 229E (PCR) Not detected (Not Detect) SARS-CoV-2 (PCR) Not detected (Not Detecte) Coronavirus NL63 (PCR) Not detected (Not Detect) Human Metapneumovir PCR Not detected (Not Detect) Influenza Type A (PCR) Not detected (Not Detect) Influenza Type B (PCR) Not detected (Not Detect) M. pneumoniae (PCR) Not detected (Not Detect) Parainfluenza 1 (PCR) Not detected (Not Detect) Parainfluenza 2 (PCR) Not detected (Not Detect) Parainfluenza 3 (PCR) Not detected (Not Detect) Parainfluenza 4 (PCR) Not detected (Not Detect) RSV (PCR) Not detected (Not Detect) Entero/Rhino (PCR) Not detected (Not Detect) Blood Type Antibody Screen 06/01/22 06/01/22 06/01/22 Range/Units 15:48 16:05 16:05 WBC 15.2 H (4.5-11.0) X10^3/uL RBC 3.91 L (4.5-5.9) X10^6/uL Hgb 10.8 L (13.5-17.5) g/dL Hct 32.3 L (41-53) % MCV 82.5 (80-100) fL MCH 27.5 (26-34) PG MCHC 33.3 (30-36) % RDW 16.2 H (11.6-14.8) % Plt Count 285 (150-400) X10^3/uL Neut % (Auto) 87.1 H (50-75) % Lymph % (Auto) 4.7 L (25-40) % [place] % (Auto) 7.5 (3-14) % Eos % (Auto) 0.0 L (2-4) % Baso % (Auto) 0.7 (0-2) % Neut # (Auto) 37887 H (3571-0039) /uL Lymph # (Auto) 700 L (6561-6122) /uL [place] # (Auto) 1100 H (0-900) /uL Eos # (Auto) 0 (0-450) /uL Baso # (Auto) 100 (0-100) /uL PT (10.1-12.7) SECONDS INR (0.9-1.3) APTT (26-36) SECONDS ABG pH 7.48 H (7.35-7.45) ABG pCO2 31.2 L (35-45) mmHg ABG pO2 105 H (80-100) mmHg ABG HCO3 24 (23-27) mmol/L ABG Total CO2 24 (23-27) mmol/L ABG O2 Saturation 99 (95-100) % ABG Base Excess 0.0 (-2-3) mmol/L FiO2 35 Sodium 135 L (137-145) mmol/L Potassium 3.4 (3.4-5.1) mmol/L Chloride 102 (98-107) mmol/L Carbon Dioxide 24 (22-32) mmol/L BUN 24 H (9-20) mg/dL Creatinine 1.22 (0.66-1.25) mg/dL Estimated GFR > 60 (>60) mL/min BUN/Creatinine Ratio 19.7 (6-22) Glucose 184 H (80-110) mg/dL Lactate (0.7-2.1) mmol/L Calcium 9.4 (8.4-10.2) mg/dL Total Bilirubin 0.7 (0.2-1.3) mg/dL AST 19 (17-59) IU/L ALT 14 (<50) IU/L Alkaline Phosphatase 91 (38-126) U/L Total Creatine Kinase 71 (55-170) U/L CK-MB (CK-2) TNP CK-MB (CK-2) Rel Index TNP Troponin I < 0.012 (0.01-0.034) ng/mL NT-Pro-B Natriuret Pep 837 H (<125) pg/mL Total Protein 7.1 (6.3-8.2) g/dL Albumin 3.8 (3.5-5.0) g/dL Globulin 3.3 (1.7-4.1) g/dL Albumin/Globulin Ratio 1.2 (1.0-2.8) Procalcitonin (<0.5) ng/mL Urine Color Urine Appearance Urine pH (4.5-8.0) Ur Specific [place] (1.000-1.035) Urine Protein (Negative) Urine Glucose (UA) (Negative) g/dL Urine Ketones (NEGATIVE) Urine Occult Blood (Negative) Urine Nitrate (Negative) Urine Bilirubin (NEGATIVE) Urine Urobilinogen (0.2) E.U./dL Ur Leukocyte Esterase (NEGATIVE) Urine RBC (0-5/HPF) Urine WBC (0-5/HPF) Ur Squamous Epith Cells (0-5/HPF) Urine Bacteria (None) Ur Culture Indicated? Chlamy pneumoniae PCR (Not Detect) Adenovirus (PCR) (Not Detect) B. pertussis DNA (PCR) (Not Detecte) B.parapertussis DNA PCR (Not Detecte) Coronavirus OC43 (PCR) (Not Detect) Coronavirus HKU1 (PCR) (Not Detect) Coronavirus 229E (PCR) (Not Detect) SARS-CoV-2 (PCR) (Not Detecte) Coronavirus NL63 (PCR) (Not Detect) Human Metapneumovir PCR (Not Detect) Influenza Type A (PCR) (Not Detect) Influenza Type B (PCR) (Not Detect) M. pneumoniae (PCR) (Not Detect) Parainfluenza 1 (PCR) (Not Detect) Parainfluenza 2 (PCR) (Not Detect) Parainfluenza 3 (PCR) (Not Detect) Parainfluenza 4 (PCR) (Not Detect) RSV (PCR) (Not Detect) Entero/Rhino (PCR) (Not Detect) Blood Type Antibody Screen 06/01/22 Range/Units 16:05 WBC (4.5-11.0) X10^3/uL RBC (4.5-5.9) X10^6/uL Hgb (13.5-17.5) g/dL Hct (41-53) % MCV (80-100) fL MCH (26-34) PG MCHC (30-36) % RDW (11.6-14.8) % Plt Count (150-400) X10^3/uL Neut % (Auto) (50-75) % Lymph % (Auto) (25-40) % Berks % (Auto) (3-14) % Eos % (Auto) (2-4) % Baso % (Auto) (0-2) % Neut # (Auto) (5311-5211) /uL Lymph # (Auto) (2585-9720) /uL [place] # (Auto) (0-900) /uL Eos # (Auto) (0-450) /uL Baso # (Auto) (0-100) /uL PT (10.1-12.7) SECONDS INR (0.9-1.3) APTT (26-36) SECONDS ABG pH (7.35-7.45) ABG pCO2 (35-45) mmHg ABG pO2 (80-100) mmHg ABG HCO3 (23-27) mmol/L ABG Total CO2 (23-27) mmol/L ABG O2 Saturation (95-100) % ABG Base Excess (-2-3) mmol/L FiO2 Sodium (137-145) mmol/L Potassium (3.4-5.1) mmol/L Chloride (98-107) mmol/L Carbon Dioxide (22-32) mmol/L BUN (9-20) mg/dL Creatinine (0.66-1.25) mg/dL Estimated GFR (>60) mL/min BUN/Creatinine Ratio (6-22) Glucose (80-110) mg/dL Lactate 1.8 (0.7-2.1) mmol/L Calcium (8.4-10.2) mg/dL Total Bilirubin (0.2-1.3) mg/dL AST (17-59) IU/L ALT (<50) IU/L Alkaline Phosphatase (38-126) U/L Total Creatine Kinase (55-170) U/L CK-MB (CK-2) CK-MB (CK-2) Rel Index Troponin I (0.01-0.034) ng/mL NT-Pro-B Natriuret Pep (<125) pg/mL Total Protein (6.3-8.2) g/dL Albumin (3.5-5.0) g/dL Globulin (1.7-4.1) g/dL Albumin/Globulin Ratio (1.0-2.8) Procalcitonin (<0.5) ng/mL Urine Color Urine Appearance Urine pH (4.5-8.0) Ur Specific [place] (1.000-1.035) Urine Protein (Negative) Urine Glucose (UA) (Negative) g/dL Urine Ketones (NEGATIVE) Urine Occult Blood (Negative) Urine Nitrate (Negative) Urine Bilirubin (NEGATIVE) Urine Urobilinogen (0.2) E.U./dL Ur Leukocyte Esterase (NEGATIVE) Urine RBC (0-5/HPF) Urine WBC (0-5/HPF) Ur Squamous Epith Cells (0-5/HPF) Urine Bacteria (None) Ur Culture Indicated? Chlamy pneumoniae PCR (Not Detect) Adenovirus (PCR) (Not Detect) B. pertussis DNA (PCR) (Not Detecte) B.parapertussis DNA PCR (Not Detecte) Coronavirus OC43 (PCR) (Not Detect) Coronavirus HKU1 (PCR) (Not Detect) Coronavirus 229E (PCR) (Not Detect) SARS-CoV-2 (PCR) (Not Detecte) Coronavirus NL63 (PCR) (Not Detect) Human Metapneumovir PCR (Not Detect) Influenza Type A (PCR) (Not Detect) Influenza Type B (PCR) (Not Detect) M. pneumoniae (PCR) (Not Detect) Parainfluenza 1 (PCR) (Not Detect) Parainfluenza 2 (PCR) (Not Detect) Parainfluenza 3 (PCR) (Not Detect) Parainfluenza 4 (PCR) (Not Detect) RSV (PCR) (Not Detect) Entero/Rhino (PCR) (Not Detect) Blood Type Antibody Screen Point of Care Testing Glucose POC 208 MDM Narrative Medical decision making narrative: 72-year-old male with past medical history BPH, GERD, hypertension, type 2 diabetes, Parkinson's disease, CHF, prostate cancer presents to the ED with 1 day of in the stools. Concern for anemia versus GI bleed versus hemorrhoids ve rsus UTI versus pyelonephritis versus urinary retention versus gastroenteritis versus diverticulitis versus other intra-abdominal pathology versus other. Will obtain labs, lipase, UA, CT abdomen pelvis. Patient SIRS positive with a lactate of 3.7 and white count of 15.5 point, heart rate of 92, RR 39. Source yet unknown. Will initiate sepsis with sepsis fluids, blood cultures, antibiotics. Full sepsis workup. Urine was positive for a UTI, likely source of the sepsis. X-ray with mild fluid overload but no signs of pneumonia. Mild creatinine bump to 1.26. Patient developed marked wheezing in the ED, was given 2 DuoNeb treatments which resolved his wheezing. However, patient appeared to get more agitated with increased work of breathing. It is likely that IV fluids caused an overload that contributed to patient's symptoms. IV fluids were paused, double the daily dose of Lasix given to patient. It was also noted at this time that patient appeared more obtunded and confused, could not recall where he was, why he would come to the ED. Patient was trialed on BiPAP, however was unable to tolerate it. Patient was transitioned to high-flow nasal cannula at 24% and 45 L. which he tolerated well. Patient was also given Ativan for agitation. With the Ativan and the high-flow nasal cannula, patient calm down, his work of breathing reverted back to normal. Patient's mental status also improved, patient was lucid and A&O x3. At 1 point, prior to patient's breathing stabilizing, patient became hypotensive in the systolic 80s. A central line was put in by ED attending Dr. Wilfredo Grover in anticipation of needing pressors. Patient's blood pressure stabilized within 5 minutes with no additional intervention. No pressors or nitroglycerin given to patient. Hospitalist Dr. Palm was consulted for admission of patient, and he graciously accepted the patient. Patient continues to be stable in the ED. <Wilfredo Grover, DO - Last Filed: 06/02/22 06:40> Lab Data Labs: Lab Results 06/01/22 06/01/22 06/01/22 Range/Units 11:48 11:48 11:48 WBC 15.5 H (4.5-11.0) X10^3/uL RBC 3.92 L (4.5-5.9) X10^6/uL Hgb 10.7 L (13.5-17.5) g/dL Hct 32.4 L (41-53) % MCV 82.7 (80-100) fL MCH 27.3 (26-34) PG MCHC 33.0 (30-36) % RDW 16.6 H (11.6-14.8) % Plt Count 266 (150-400) X10^3/uL Neut % (Auto) 86.1 H (50-75) % Lymph % (Auto) 6.3 L (25-40) % Berks % (Auto) 7.0 (3-14) % Eos % (Auto) 0.1 L (2-4) % Baso % (Auto) 0.5 (0-2) % Neut # (Auto) 29194 H (0389-8944) /uL Lymph # (Auto) 1000 L (6266-1868) /uL Berks # (Auto) 1100 H (0-900) /uL Eos # (Auto) 0 (0-450) /uL Baso # (Auto) 100 (0-100) /uL PT 15.4 H (10.1-12.7) SECONDS INR 1.3 (0.9-1.3) APTT 28 (26-36) SECONDS ABG pH (7.35-7.45) ABG pCO2 (35-45) mmHg ABG pO2 (80-100) mmHg ABG HCO3 (23-27) mmol/L ABG Total CO2 (23-27) mmol/L ABG O2 Saturation (95-100) % ABG Base Excess (-2-3) mmol/L FiO2 Sodium 134 L (137-145) mmol/L Potassium 4.2 (3.4-5.1) mmol/L Chloride 101 (98-107) mmol/L Carbon Dioxide 23 (22-32) mmol/L BUN 25 H (9-20) mg/dL Creatinine 1.26 H (0.66-1.25) mg/dL Estimated GFR > 60 (>60) mL/min BUN/Creatinine Ratio 19.8 (6-22) Glucose 196 H (80-110) mg/dL Lactate (0.7-2.1) mmol/L Calcium 9.4 (8.4-10.2) mg/dL Total Bilirubin 0.7 (0.2-1.3) mg/dL AST 18 (17-59) IU/L ALT 16 (<50) IU/L Alkaline Phosphatase 91 (38-126) U/L Total Creatine Kinase (55-170) U/L CK-MB (CK-2) CK-MB (CK-2) Rel Index Troponin I (0.01-0.034) ng/mL NT-Pro-B Natriuret Pep (<125) pg/mL Total Protein 7.2 (6.3-8.2) g/dL Albumin 3.7 (3.5-5.0) g/dL Globulin 3.5 (1.7-4.1) g/dL Albumin/Globulin Ratio 1.1 (1.0-2.8) Procalcitonin (<0.5) ng/mL Urine Color Urine Appearance Urine pH (4.5-8.0) Ur Specific [place] (1.000-1.035) Urine Protein (Negative) Urine Glucose (UA) (Negative) g/dL Urine Ketones (NEGATIVE) Urine Occult Blood (Negative) Urine Nitrate (Negative) Urine Bilirubin (NEGATIVE) Urine Urobilinogen (0.2) E.U./dL Ur Leukocyte Esterase (NEGATIVE) Urine RBC (0-5/HPF) Urine WBC (0-5/HPF) Ur Squamous Epith Cells (0-5/HPF) Urine Bacteria (None) Ur Culture Indicated? Chlamy pneumoniae PCR (Not Detect) Adenovirus (PCR) (Not Detect) B. pertussis DNA (PCR) (Not Detecte) B.parapertussis DNA PCR (Not Detecte) Coronavirus OC43 (PCR) (Not Detect) Coronavirus HKU1 (PCR) (Not Detect) Coronavirus 229E (PCR) (Not Detect) SARS-CoV-2 (PCR) (Not Detecte) Coronavirus NL63 (PCR) (Not Detect) Human Metapneumovir PCR (Not Detect) Influenza Type A (PCR) (Not Detect) Influenza Type B (PCR) (Not Detect) M. pneumoniae (PCR) (Not Detect) Parainfluenza 1 (PCR) (Not Detect) Parainfluenza 2 (PCR) (Not Detect) Parainfluenza 3 (PCR) (Not Detect) Parainfluenza 4 (PCR) (Not Detect) RSV (PCR) (Not Detect) Entero/Rhino (PCR) (Not Detect) Blood Type Antibody Screen 06/01/22 06/01/22 06/01/22 Range/Units 11:48 11:48 12:39 WBC (4.5-11.0) X10^3/uL RBC (4.5-5.9) X10^6/uL Hgb (13.5-17.5) g/dL Hct (41-53) % MCV (80-100) fL MCH (26-34) PG MCHC (30-36) % RDW (11.6-14.8) % Plt Count (150-400) X10^3/uL Neut % (Auto) (50-75) % Lymph % (Auto) (25-40) % [place] % (Auto) (3-14) % Eos % (Auto) (2-4) % Baso % (Auto) (0-2) % Neut # (Auto) (4844-3822) /uL Lymph # (Auto) (1256-1668) /uL [place] # (Auto) (0-900) /uL Eos # (Auto) (0-450) /uL Baso # (Auto) (0-100) /uL PT (10.1-12.7) SECONDS INR (0.9-1.3) APTT (26-36) SECONDS ABG pH (7.35-7.45) ABG pCO2 (35-45) mmHg ABG pO2 (80-100) mmHg ABG HCO3 (23-27) mmol/L ABG Total CO2 (23-27) mmol/L ABG O2 Saturation (95-100) % ABG Base Excess (-2-3) mmol/L FiO2 Sodium (137-145) mmol/L Potassium (3.4-5.1) mmol/L Chloride (98-107) mmol/L Carbon Dioxide (22-32) mmol/L BUN (9-20) mg/dL Creatinine (0.66-1.25) mg/dL Estimated GFR (>60) mL/min BUN/Creatinine Ratio (6-22) Glucose (80-110) mg/dL Lactate 3.7 H (0.7-2.1) mmol/L Calcium (8.4-10.2) mg/dL Total Bilirubin (0.2-1.3) mg/dL AST (17-59) IU/L ALT (<50) IU/L Alkaline Phosphatase (38-126) U/L Total Creatine Kinase (55-170) U/L CK-MB (CK-2) CK-MB (CK-2) Rel Index Troponin I (0.01-0.034) ng/mL NT-Pro-B Natriuret Pep (<125) pg/mL Total Protein (6.3-8.2) g/dL Albumin (3.5-5.0) g/dL Globulin (1.7-4.1) g/dL Albumin/Globulin Ratio (1.0-2.8) Procalcitonin 0.36 (<0.5) ng/mL Urine Color Urine Appearance Urine pH (4.5-8.0) Ur Specific [place] (1.000-1.035) Urine Protein (Negative) Urine Glucose (UA) (Negative) g/dL Urine Ketones (NEGATIVE) Urine Occult Blood (Negative) Urine Nitrate (Negative) Urine Bilirubin (NEGATIVE) Urine Urobilinogen (0.2) E.U./dL Ur Leukocyte Esterase (NEGATIVE) Urine RBC (0-5/HPF) Urine WBC (0-5/HPF) Ur Squamous Epith Cells (0-5/HPF) Urine Bacteria (None) Ur Culture Indicated? Chlamy pneumoniae PCR (Not Detect) Adenovirus (PCR) (Not Detect) B. pertussis DNA (PCR) (Not Detecte) B.parapertussis DNA PCR (Not Detecte) Coronavirus OC43 (PCR) (Not Detect) Coronavirus HKU1 (PCR) (Not Detect) Coronavirus 229E (PCR) (Not Detect) SARS-CoV-2 (PCR) (Not Detecte) Coronavirus NL63 (PCR) (Not Detect) Human Metapneumovir PCR (Not Detect) Influenza Type A (PCR) (Not Detect) Influenza Type B (PCR) (Not Detect) M. pneumoniae (PCR) (Not Detect) Parainfluenza 1 (PCR) (Not Detect) Parainfluenza 2 (PCR) (Not Detect) Parainfluenza 3 (PCR) (Not Detect) Parainfluenza 4 (PCR) (Not Detect) RSV (PCR) (Not Detect) Entero/Rhino (PCR) (Not Detect) Blood Type AB Positive Antibody Screen Negative 06/01/22 06/01/22 06/01/22 Range/Units 13:24 13:31 13:45 WBC (4.5-11.0) X10^3/uL RBC (4.5-5.9) X10^6/uL Hgb (13.5-17.5) g/dL Hct (41-53) % MCV (80-100) fL MCH (26-34) PG MCHC (30-36) % RDW (11.6-14.8) % Plt Count (150-400) X10^3/uL Neut % (Auto) (50-75) % Lymph % (Auto) (25-40) % [place] % (Auto) (3-14) % Eos % (Auto) (2-4) % Baso % (Auto) (0-2) % Neut # (Auto) (8254-7951) /uL Lymph # (Auto) (5537-2444) /uL [place] # (Auto) (0-900) /uL Eos # (Auto) (0-450) /uL Baso # (Auto) (0-100) /uL PT (10.1-12.7) SECONDS INR (0.9-1.3) APTT (26-36) SECONDS ABG pH (7.35-7.45) ABG pCO2 (35-45) mmHg ABG pO2 (80-100) mmHg ABG HCO3 (23-27) mmol/L ABG Total CO2 (23-27) mmol/L ABG O2 Saturation (95-100) % ABG Base Excess (-2-3) mmol/L FiO2 Sodium (137-145) mmol/L Potassium (3.4-5.1) mmol/L Chloride (98-107) mmol/L Carbon Dioxide (22-32) mmol/L BUN (9-20) mg/dL Creatinine (0.66-1.25) mg/dL Estimated GFR (>60) mL/min BUN/Creatinine Ratio (6-22) Glucose (80-110) mg/dL Lactate (0.7-2.1) mmol/L Calcium (8.4-10.2) mg/dL Total Bilirubin (0.2-1.3) mg/dL AST (17-59) IU/L ALT (<50) IU/L Alkaline Phosphatase (38-126) U/L Total Creatine Kinase 78 (55-170) U/L CK-MB (CK-2) TNP CK-MB (CK-2) Rel Index TNP Troponin I 0.016 (0.01-0.034) ng/mL NT-Pro-B Natriuret Pep 637 H (<125) pg/mL Total Protein (6.3-8.2) g/dL Albumin (3.5-5.0) g/dL Globulin (1.7-4.1) g/dL Albumin/Globulin Ratio (1.0-2.8) Procalcitonin (<0.5) ng/mL Urine Color Yellow Urine Appearance Clear Urine pH 6.5 (4.5-8.0) Ur Specific [place] 1.010 (1.000-1.035) Urine Protein 1+ H (Negative) Urine Glucose (UA) Trace H (Negative) g/dL Urine Ketones Negative (NEGATIVE) Urine Occult Blood 1+ H (Negative) Urine Nitrate Positive H (Negative) Urine Bilirubin Negative (NEGATIVE) Urine Urobilinogen 1.0 (0.2) E.U./dL Ur Leukocyte Esterase 1+ H (NEGATIVE) Urine RBC 5-10/hpf H (0-5/HPF) Urine WBC 10-30/hpf H (0-5/HPF) Ur Squamous Epith Cells 0-1 /hpf (0-5/HPF) Urine Bacteria Many (>30) H (None) Ur Culture Indicated? Specimen cultured Chlamy pneumoniae PCR Not detected (Not Detect) Adenovirus (PCR) Not detected (Not Detect) B. pertussis DNA (PCR) Not detected (Not Detecte) B.parapertussis DNA PCR Not detected (Not Detecte) Coronavirus OC43 (PCR) Not detected (Not Detect) Coronavirus HKU1 (PCR) Not detected (Not Detect) Coronavirus 229E (PCR) Not detected (Not Detect) SARS-CoV-2 (PCR) Not detected (Not Detecte) Coronavirus NL63 (PCR) Not detected (Not Detect) Human Metapneumovir PCR Not detected (Not Detect) Influenza Type A (PCR) Not detected (Not Detect) Influenza Type B (PCR) Not detected (Not Detect) M. pneumoniae (PCR) Not detected (Not Detect) Parainfluenza 1 (PCR) Not detected (Not Detect) Parainfluenza 2 (PCR) Not detected (Not Detect) Parainfluenza 3 (PCR) Not detected (Not Detect) Parainfluenza 4 (PCR) Not detected (Not Detect) RSV (PCR) Not detected (Not Detect) Entero/Rhino (PCR) Not detected (Not Detect) Blood Type Antibody Screen 06/01/22 06/01/22 06/01/22 Range/Units 15:48 16:05 16:05 WBC 15.2 H (4.5-11.0) X10^3/uL RBC 3.91 L (4.5-5.9) X10^6/uL Hgb 10.8 L (13.5-17.5) g/dL Hct 32.3 L (41-53) % MCV 82.5 (80-100) fL MCH 27.5 (26-34) PG MCHC 33.3 (30-36) % RDW 16.2 H (11.6-14.8) % Plt Count 285 (150-400) X10^3/uL Neut % (Auto) 87.1 H (50-75) % Lymph % (Auto) 4.7 L (25-40) % [place] % (Auto) 7.5 (3-14) % Eos % (Auto) 0.0 L (2-4) % Baso % (Auto) 0.7 (0-2) % Neut # (Auto) 14781 H (5512-3879) /uL Lymph # (Auto) 700 L (8011-5978) /uL [place] # (Auto) 1100 H (0-900) /uL Eos # (Auto) 0 (0-450) /uL Baso # (Auto) 100 (0-100) /uL PT (10.1-12.7) SECONDS INR (0.9-1.3) APTT (26-36) SECONDS ABG pH 7.48 H (7.35-7.45) ABG pCO2 31.2 L (35-45) mmHg ABG pO2 105 H (80-100) mmHg ABG HCO3 24 (23-27) mmol/L ABG Total CO2 24 (23-27) mmol/L ABG O2 Saturation 99 (95-100) % ABG Base Excess 0.0 (-2-3) mmol/L FiO2 35 Sodium 135 L (137-145) mmol/L Potassium 3.4 (3.4-5.1) mmol/L Chloride 102 (98-107) mmol/L Carbon Dioxide 24 (22-32) mmol/L BUN 24 H (9-20) mg/dL Creatinine 1.22 (0.66-1.25) mg/dL Estimated GFR > 60 (>60) mL/min BUN/Creatinine Ratio 19.7 (6-22) Glucose 184 H (80-110) mg/dL Lactate (0.7-2.1) mmol/L Calcium 9.4 (8.4-10.2) mg/dL Total Bilirubin 0.7 (0.2-1.3) mg/dL AST 19 (17-59) IU/L ALT 14 (<50) IU/L Alkaline Phosphatase 91 (38-126) U/L Total Creatine Kinase 71 (55-170) U/L CK-MB (CK-2) TNP CK-MB (CK-2) Rel Index TNP Troponin I < 0.012 (0.01-0.034) ng/mL NT-Pro-B Natriuret Pep 837 H (<125) pg/mL Total Protein 7.1 (6.3-8.2) g/dL Albumin 3.8 (3.5-5.0) g/dL Globulin 3.3 (1.7-4.1) g/dL Albumin/Globulin Ratio 1.2 (1.0-2.8) Procalcitonin (<0.5) ng/mL Urine Color Urine Appearance Urine pH (4.5-8.0) Ur Specific [place] (1.000-1.035) Urine Protein (Negative) Urine Glucose (UA) (Negative) g/dL Urine Ketones (NEGATIVE) Urine Occult Blood (Negative) Urine Nitrate (Negative) Urine Bilirubin (NEGATIVE) Urine Urobilinogen (0.2) E.U./dL Ur Leukocyte Esterase (NEGATIVE) Urine RBC (0-5/HPF) Urine WBC (0-5/HPF) Ur Squamous Epith Cells (0-5/HPF) Urine Bacteria (None) Ur Culture Indicated? Chlamy pneumoniae PCR (Not Detect) Adenovirus (PCR) (Not Detect) B. pertussis DNA (PCR) (Not Detecte) B.parapertussis DNA PCR (Not Detecte) Coronavirus OC43 (PCR) (Not Detect) Coronavirus HKU1 (PCR) (Not Detect) Coronavirus 229E (PCR) (Not Detect) SARS-CoV-2 (PCR) (Not Detecte) Coronavirus NL63 (PCR) (Not Detect) Human Metapneumovir PCR (Not Detect) Influenza Type A (PCR) (Not Detect) Influenza Type B (PCR) (Not Detect) M. pneumoniae (PCR) (Not Detect) Parainfluenza 1 (PCR) (Not Detect) Parainfluenza 2 (PCR) (Not Detect) Parainfluenza 3 (PCR) (Not Detect) Parainfluenza 4 (PCR) (Not Detect) RSV (PCR) (Not Detect) Entero/Rhino (PCR) (Not Detect) Blood Type Antibody Screen 06/01/22 Range/Units 16:05 WBC (4.5-11.0) X10^3/uL RBC (4.5-5.9) X10^6/uL Hgb (13.5-17.5) g/dL Hct (41-53) % MCV (80-100) fL MCH (26-34) PG MCHC (30-36) % RDW (11.6-14.8) % Plt Count (150-400) X10^3/uL Neut % (Auto) (50-75) % Lymph % (Auto) (25-40) % [place] % (Auto) (3-14) % Eos % (Auto) (2-4) % Baso % (Auto) (0-2) % Neut # (Auto) (1692-3280) /uL Lymph # (Auto) (1386-4962) /uL [place] # (Auto) (0-900) /uL Eos # (Auto) (0-450) /uL Baso # (Auto) (0-100) /uL PT (10.1-12.7) SECONDS INR (0.9-1.3) APTT (26-36) SECONDS ABG pH (7.35-7.45) ABG pCO2 (35-45) mmHg ABG pO2 (80-100) mmHg ABG HCO3 (23-27) mmol/L ABG Total CO2 (23-27) mmol/L ABG O2 Saturation (95-100) % ABG Base Excess (-2-3) mmol/L FiO2 Sodium (137-145) mmol/L Potassium (3.4-5.1) mmol/L Chloride (98-107) mmol/L Carbon Dioxide (22-32) mmol/L BUN (9-20) mg/dL Creatinine (0.66-1.25) mg/dL Estimated GFR (>60) mL/min BUN/Creatinine Ratio (6-22) Glucose (80-110) mg/dL Lactate 1.8 (0.7-2.1) mmol/L Calcium (8.4-10.2) mg/dL Total Bilirubin (0.2-1.3) mg/dL AST (17-59) IU/L ALT (<50) IU/L Alkaline Phosphatase (38-126) U/L Total Creatine Kinase (55-170) U/L CK-MB (CK-2) CK-MB (CK-2) Rel Index Troponin I (0.01-0.034) ng/mL NT-Pro-B Natriuret Pep (<125) pg/mL Total Protein (6.3-8.2) g/dL Albumin (3.5-5.0) g/dL Globulin (1.7-4.1) g/dL Albumin/Globulin Ratio (1.0-2.8) Procalcitonin (<0.5) ng/mL Urine Color Urine Appearance Urine pH (4.5-8.0) Ur Specific [place] (1.000-1.035) Urine Protein (Negative) Urine Glucose (UA) (Negative) g/dL Urine Ketones (NEGATIVE) Urine Occult Blood (Negative) Urine Nitrate (Negative) Urine Bilirubin (NEGATIVE) Urine Urobilinogen (0.2) E.U./dL Ur Leukocyte Esterase (NEGATIVE) Urine RBC (0-5/HPF) Urine WBC (0-5/HPF) Ur Squamous Epith Cells (0-5/HPF) Urine Bacteria (None) Ur Culture Indicated? Chlamy pneumoniae PCR (Not Detect) Adenovirus (PCR) (Not Detect) B. pertussis DNA (PCR) (Not Detecte) B.parapertussis DNA PCR (Not Detecte) Coronavirus OC43 (PCR) (Not Detect) Coronavirus HKU1 (PCR) (Not Detect) Coronavirus 229E (PCR) (Not Detect) SARS-CoV-2 (PCR) (Not Detecte) Coronavirus NL63 (PCR) (Not Detect) Human Metapneumovir PCR (Not Detect) Influenza Type A (PCR) (Not Detect) Influenza Type B (PCR) (Not Detect) M. pneumoniae (PCR) (Not Detect) Parainfluenza 1 (PCR) (Not Detect) Parainfluenza 2 (PCR) (Not Detect) Parainfluenza 3 (PCR) (Not Detect) Parainfluenza 4 (PCR) (Not Detect) RSV (PCR) (Not Detect) Entero/Rhino (PCR) (Not Detect) Blood Type Antibody Screen Point of Care Testing Glucose POC 208 <Wilfredo Grover, DO - Last Filed: 06/02/22 06:40> Critical Care Time Critical Care Time: Yes Total Critical Care Time: 35 Attestation: The high probability of a clinically significant, sudden or life threatening deterioration of the [CV] system(s) required my full and direct attention, inter vention and personal management. The aggregate critical care time was [35] minutes. This time is in addition to time spent performing reported procedures but includes the following: [x] Data Review and interpretation [x] Patient assessment and monitoring of vital signs [x] Documentation [x] Medication orders and management Discharge Plan Departure Patient Disposition: Admitted As Inpatient Clinical Impression: Sepsis, Acute UTI, Respiratory failure Admit Date/Time: 06/01/22 20:04 Admit Provider: Gadiel Palm <Wilfredo Grover DO - Last Filed: 06/02/22 06:40> Cosign ED Attending Chrystal Attestation: I was immediately available in the department for consultation. Documentation has been reviewed. I agree with assessment and plan.
[2022-06-01] MEDS: CEFEPIME 2 GM in SODIUM CHLORIDE 0.9% 100 ML IV (14:11)
[2022-06-01 14:17] LABS: Bacteria Urine Many (>30); Culture Indicated Urine Specimen Cultured; RBC Urine 5-10/HPF (0-5/HPF); Squamous Epithelial Cell Urine 0-1 /HPF (0-5/HPF); WBC Urine 10-30/HPF (0-5/HPF)
[2022-06-01] MEDS: ALBUTEROL/IPRATROPIUM 3 ML AMPUL INH ×2 (14:25→14:39)
[2022-06-01] MEDS: FUROSEMIDE 80 MG in SODIUM CHLORIDE 0.9% 50 ML 116 MG IV (14:25)
[2022-06-01 14:27] LABS: Reflexed Lactate in 2 Hours Y
[2022-06-01 14:36] LABS: Adenovirus Not Detected (Not Detect); B. parapertussis Not Detected (Not Detecte); Bordetella pertussis Not Detected (Not Detecte); Chlamydophila pneumoniae Not Detected (Not Detect); Coronavirus 229E Not Detected (Not Detect); Coronavirus HKU1 Not Detected (Not Detect); Coronavirus NL 63 Not Detected (Not Detect); Coronavirus OC43 Not Detected (Not Detect); Human Metapneumovirus Not Detected (Not Detect); Human Rhinovirus/Enterovirus Not Detected (Not Detect); Influenza A Not Detected (Not Detect); Influenza B Not Detected (Not Detect); Mycoplasma pneumoniae Not Detected (Not Detect); Parainfluenza Virus 1 Not Detected (Not Detect); Parainfluenza Virus 2 Not Detected (Not Detect); Parainfluenza Virus 3 Not Detected (Not Detect); Parainfluenza Virus 4 Not Detected (Not Detect); Respiratory Syncytial Virus Not Detected (Not Detect); SARS- CoV-2 Not Detected (Not Detecte)
[2022-06-01] MEDS: LORazepam 2 MG/ML INJ 0.5 MG IV (16:01)
--- NOTE | 2022-06-01 16:02 | PC.NURSE ---
Patient becoming more confused, agitated (pulling at lines, mixon). Breathing prior to bipap shallow and labored, pt less labored since. Dr. Grover and David ARROYO aware. Pt transported via stretcher to room 1. David ARROYO currently at bedside assessing pt.
[2022-06-01 16:18] LABS: Add Manual Diff / Slide Review NO; Basophils Absolute Auto 100 /uL (0-100); Basophils Percent Auto 0.7 % (0-2); Eosinophils Absolute Auto 0 /uL (0-450); Hematocrit 32.3 % (41-53); Hemoglobin 10.8 g/dL (13.5-17.5); Lymphocytes Absolute Auto 700 /uL (1100-4500); Lymphocytes Percent Auto 4.7 % (25-40); Mean Corpuscular HGB Conc 33.3 % (30-36); Mean Corpuscular Hemoglobin 27.5 PG (26-34); Mean Corpuscular Volume 82.5 fL (80-100); Monocytes Absolute Auto 1100 /uL (0-900); Monocytes Percent Auto 7.5 % (3-14); Neutrophils Absolute Auto 13200 /uL (1500-7000); Neutrophils Percent Auto 87.1 % (50-75); Platelet Count 285 X10^3/uL (150-400); Red Blood Cell Count 3.91 X10^6/uL (4.5-5.9); Red Cell Distribution Width 16.2 % (11.6-14.8); White Blood Cell Count 15.2 X10^3/uL (4.5-11.0)
[2022-06-01] MEDS: ACETAMINOPHEN 325 MG TABLET 650 MG PO (16:19)
[2022-06-01] MEDS: LORazepam 2 MG/ML INJ 1 MG IV (16:24)
[2022-06-01 16:28] LABS: Alanine Aminotransferase 14 IU/L (<50); Albumin 3.8 g/dL (3.5-5.0); Albumin Globulin Ratio 1.2 (1.0-2.8); Alkaline Phosphatase 91 U/L (38-126); Aspartate Aminotransferase 19 IU/L (17-59); BUN Creatinine Ratio 19.7 (6-22); Bilirubin Total 0.7 mg/dL (0.2-1.3); Blood Urea Nitrogen 24 mg/dL (9-20); Calcium 9.4 mg/dL (8.4-10.2); Carbon Dioxide 24 mmol/L (22-32); Chloride 102 mmol/L (98-107); Creatine Kinase 71 U/L (55-170); Estimated Glomerular Filt Rate > 60 mL/min (>60); Globulin 3.3 g/dL (1.7-4.1); Glucose 184 mg/dL (80-110); HEMOLYSIS < 15 (0-50); Potassium 3.4 mmol/L (3.4-5.1); Sodium 135 mmol/L (137-145); Total Protein 7.1 g/dL (6.3-8.2)
[2022-06-01 16:28] LABS: HCO3 ABG 24 mmol/L (23-27); Oxygen Saturation ABG 99 % (95-100); PCO2 ABG 31.2 mmHg (35-45); PO2 ABG 105 mmHg (80-100); TCO2 ABG 24 mmol/L (23-27)
[2022-06-01 16:29] LABS: Lactate (Lactic Acid) 1.8 mmol/L (0.7-2.1)
[2022-06-01 16:29] LABS: Fractionated Inspired Oxygen 35; pH ABG 7.48 (7.35-7.45)
[2022-06-01] MEDS: VANCOMYCIN 1,500 MG/300 ML PIGGYBACK 200 MG IV (16:34)
[2022-06-01 16:40] LABS: NT-proBNP (BNP-Adult 18+) 837 pg/mL (<125); Troponin I < 0.012 ng/mL (0.01-0.034)
[2022-06-01] MEDS: SODIUM CHLORIDE 0.9% FLUSH 9 ML, EPINEPHrine 0.1 MG IV (17:08)
--- NOTE | 2022-06-01 17:09 | PC.NURSE ---
Dr. Grover and David ARROYO at bedside, aware of vital signs. Pt sitting up in stretcher with eyes closed, open to voice. Educated on current plan of care, pt states okay. at bedside. Daughter updated on plan via phone.
--- NOTE | 2022-06-01 17:44 | PC.NURSE ---
Order from Dr. Grover to continue sepsis fluids, goal to maintain map greater than 65, holding on norepinephrine at this time.
--- NOTE | 2022-06-01 17:46 | DI.RAD.S_ITS ---
PROCEDURE: XR CHEST 1V INDICATIONS: confirm central line placement TECHNIQUE: One view of the chest was acquired. COMPARISON: [facility], CR, XR CHEST 1V, 06/01/2022, 12:41. FINDINGS: Surgical changes and devices: There is a right-sided central line seen, with the tip overlying the inferior aspect of the superior vena cava, near the cavoatrial junction. A right-sided stimulator is seen. Lungs and pleura: An incomplete inspiratory result is noted, causing a crowded appearance to the lung markings. No focal infiltrates are seen. No pneumothorax or significant pleural effusions are seen. Mediastinum: Mediastinal contours appear normal. Heart size is normal. Atherosclerotic calcification of the aortic arch is noted. Bones and chest wall: No suspicious bony lesions. Age-appropriate bony degenerative changes are seen. Overlying soft tissues appear unremarkable. IMPRESSION: The tip of the right-sided central line can be seen near the cavoatrial junction. Dictated by: Benji Morris M.D. on 06/01/2022 at 17:23 Approved by: Benji Morris M.D. on 06/01/2022 at 17:24
--- NOTE | 2022-06-01 17:55 | PC.NURSE ---
Per Dr. Grover and David ARROYO, Sodium Chloride 0.9% 30ml/kg are to be based on Elizabeth Body Weight, current order is based on Actual Body Weight, per David ARROYO total given to be 1,914ml to per her Elizabeth Body Weight calculation.
--- NOTE | 2022-06-01 18:09 | PC.NURSE ---
Patient opens his eyes to voice. States he is in the Emergency Department, it is 2022, oriented to self, and recalls what initially brought him in. Pt closing his eyes often, breathing even and unlabored on heated high flow. Lung sounds tight, clear throughout. Right IJ placed by Dr. Grover, dressing clean and intact. Normal bilateral radial pulses and dorsalis pedis pulses. Pt wiggling extremities independently. Skin pink, warm, and dry except in bilateral lower extremities the skin is mottled.
--- NOTE | 2022-06-01 18:53 | PC.NURSE ---
Late entry: At 1703 patient reached towards right IV with vancomycin infusing. Assessed site and redness around insertion area, blotching approximately 5 inches up arm. Flushed IV without issue and blood return visualized. 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 Order to decrease rate. Assessed again shortly after rate change and no more redness noted.
[2022-06-01] MEDS: INSULIN GLARGINE 100 UNIT/ML 3ML PEN 50 UNIT SUBCUT (22:41)
[2022-06-01] MEDS: PANTOPRAZOLE 40 MG VIAL IV (22:41)
[2022-06-01] MEDS: CARBIDOPA-LEVODOPA 25/100 TABLET 2 EACH PO (22:42)
--- NOTE | 2022-06-01 23:16 | PM.HP.1 ---
History of Present Illness History of Present Illness Date Patient Seen: 06/01/22 Time Patient Seen: 20:30 Chief complaint: blood in stool Narrative: Mr. Mayen is a 72M with PMH Parkinsons, CHFrEF, prostate cancer, Type 2 DM on insulin, GERD, HTN who presents to the hospital with bloody stools. History is obtained from his who is at bedside. The patient is currently confused and lethargic. He apparently was in his normal state of health when today he had bloody diarrhea. He has no abdominal pain. No vomiting, or hematemesis. He has urinary retention and needs to self cath due to this. He has a history of recurrent UTIs. He apparently prior to arriving had no chest pain, shortness of breath, abdominal pain, dysuria. In the ED workup was done, vitals notable for tmax 101.8, heart rate in 100s, respiratory rate in 20s-30s, blood pressure 120s-130s/60s-80s, sats initially 98% on room air. Labs reviewed by me and notable for WBC 15.2, hgb 10.8, plts 285. Na 135, creatinine 1.22. INR 1.3. Lactate 3.7->1.8. Procal 0.36. BNP 637. UA positive for nitrates, leuk esterase, WBCs, and bacteria. Respiratory panel negative. He was diagnosed with sepsis from urinary source and started on IV fluids. After fluids started he developed respiratory failure which required stopping the fluids. BIPAP was trialed but he was agitated and could not tolerate. He was placed on heated high flow. He was given IV ativan. He was ordered for lasix and blood pressure dropped to the 80s. He had a IJ CVL placed, but his blood pressure improved and pressors were not started. He was ordered for antibiotics. Chest xray reviewed by me and notable for fluid overload. He was admitted for further treatment. FORMERLY [facility] Medical History Acne Anemia Ankle pain Benign prostatic hyperplasia Chicken pox Congestive heart failure GERD (gastroesophageal reflux disease) History of prostate cancer Hypertension Measles Parkinson's disease Prostate cancer (~2010) Shoulder pain Type 2 diabetes mellitus Surgical History Anesthesia History of knee surgery Kidney stones Family History Father Stroke Mother Cancer Sister Hypertension Social History household members: spouse, family and children Smoking Status: Former smoker alcohol intake: never Meds Home Medications and Allergies Home Medications Medication Instructions Recorded Confirmed Type carbidopa 25 mg-levodopa 100 mg 2 tab PO 5XD 04/08/22 05/24/22 History tablet entacapone 200 mg tablet 200 mg PO 5XD 04/08/22 05/24/22 History losartan 50 mg tablet 50 mg PO DAILY 04/08/22 05/24/22 History metformin 850 mg tablet 850 mg PO TID 04/08/22 05/24/22 History omeprazole 20 mg capsule,delayed 20 mg PO DAILY 04/08/22 05/24/22 History release potassium citrate 10 mEq (1,080 10 meq PO BID 04/08/22 05/24/22 History mg) tablet,extended release tamsulosin 0.4 mg capsule 0.8 mg PO DAILY 04/08/22 05/24/22 History carbidopa ER 25 mg-levodopa 100 mg 1 tab PO BID 04/13/22 05/24/22 History tablet,extended release insulin glargine 100 unit/mL (3 See Rx Instructions .Route 04/13/22 05/24/22 Rx mL) subcutaneous pen (Lantus .COMPLEX #15 mL Solostar U-100 Insulin) lancets 33 gauge (Micro Thin #100 ea 04/13/22 05/24/22 History Lancets) selegiline HCl 5 mg tablet 5 mg PO BID 04/13/22 05/24/22 History pen needle, diabetic 32 gauge x #100 ea 05/04/22 05/24/22 Rx /32 (BD Reshma 2nd Gen Pen Needle) atorvastatin 10 mg tablet 10 mg PO DAILY 05/24/22 05/24/22 History gabapentin 100 mg capsule 100 mg PO TID 05/24/22 05/24/22 History finasteride 1 mg tablet 1 mg PO DAILY #90 tabs 05/31/22 Rx Allergies Allergy/AdvReac Type Severity Reaction Status Date / Time No Known Drug Allergies Allergy Verified 06/01/22 11:28 Review of Systems Review of Systems Narrative: 14 systems reviewed and negative aside from what is noted in HPI Exam Vital Signs (past 8 hours): - 06/01/22 15:36 06/01/22 15:20 06/01/22 15:25 Temperature Pulse Rate 113 H 114 H Respiratory Rate 39 H 25 H Blood Pressure 123/56 L Pulse Oximetry 96 94 Oxygen Delivery Method Oxygen Flow Rate Fraction of Inspired Oxygen 35 06/01/22 15:30 06/01/22 15:35 06/01/22 15:39 Temperature Pulse Rate 113 H 112 H Respiratory Rate 38 H 39 H Blood Pressure 104/63 Pulse Oximetry 97 97 Oxygen Delivery Method Oxygen Flow Rate Fraction of Inspired Oxygen 06/01/22 15:39 06/01/22 15:40 06/01/22 15:40 Temperature Pulse Rate 110 H 110 H Respiratory Rate 38 H 41 H Blood Pressure 137/60 Pulse Oximetry 97 97 Oxygen Delivery Method Oxygen Flow Rate Fraction of Inspired Oxygen 06/01/22 15:45 06/01/22 15:45 06/01/22 15:45 Temperature Pulse Rate 110 H Respiratory Rate 39 H Blood Pressure 128/58 L 128/58 L Pulse Oximetry 97 Oxygen Delivery Method Oxygen Flow Rate Fraction of Inspired Oxygen 06/01/22 15:50 06/01/22 15:50 06/01/22 15:50 Temperature Pulse Rate 109 H Respiratory Rate 37 H Blood Pressure 119/61 119/61 Pulse Oximetry 98 Oxygen Delivery Method Oxygen Flow Rate Fraction of Inspired Oxygen 06/01/22 15:55 06/01/22 15:55 06/01/22 15:55 Temperature Pulse Rate 108 H Respiratory Rate 33 H Blood Pressure 119/57 L 119/57 L Pulse Oximetry 99 Oxygen Delivery Method Oxygen Flow Rate Fraction of Inspired Oxygen 06/01/22 15:58 06/01/22 15:58 06/01/22 16:00 Temperature Pulse Rate 109 H Respiratory Rate 40 H Blood Pressure 121/59 L 116/58 L Pulse Oximetry 93 Oxygen Delivery Method Oxygen Flow Rate Fraction of Inspired Oxygen 06/01/22 16:00 06/01/22 16:05 06/01/22 16:05 Temperature Pulse Rate 107 H 105 H Respiratory Rate 36 H 37 H Blood Pressure 119/55 L Pulse Oximetry 99 97 Oxygen Delivery Method Oxygen Flow Rate Fraction of Inspired Oxygen 06/01/22 16:10 06/01/22 16:10 06/01/22 16:15 Temperature Pulse Rate 104 H Respiratory Rate 37 H Blood Pressure 117/56 L 115/61 Pulse Oximetry 97 Oxygen Delivery Method BiPAP Oxygen Flow Rate Fraction of Inspired Oxygen 06/01/22 16:15 06/01/22 16:20 06/01/22 16:20 Temperature Pulse Rate 104 H 105 H Respiratory Rate 35 H 37 H Blood Pressure 132/60 Pulse Oximetry 96 99 Oxygen Delivery Method Oxygen Flow Rate Fraction of Inspired Oxygen 06/01/22 16:25 06/01/22 16:30 06/01/22 16:31 Temperature Pulse Rate 106 H 104 H Respiratory Rate 33 H 36 H Blood Pressure 138/63 Pulse Oximetry 98 98 Oxygen Delivery Method Oxygen Flow Rate Fraction of Inspired Oxygen 06/01/22 16:31 06/01/22 16:48 06/01/22 17:11 Temperature 101.8 F H Pulse Rate 105 H Respiratory Rate 36 H Blood Pressure Pulse Oximetry 97 97 Oxygen Delivery Method BiPAP Heated High Flow Oxygen Flow Rate Fraction of Inspired Oxygen 06/01/22 16:49 06/01/22 16:35 06/01/22 16:36 Temperature Pulse Rate 101 H 104 H Respiratory Rate 32 H 36 H Blood Pressure 114/57 L 211/88 H Pulse Oximetry 97 100 Oxygen Delivery Method Oxygen Flow Rate Fraction of Inspired Oxygen 06/01/22 16:36 06/01/22 16:40 06/01/22 16:45 Temperature Pulse Rate 104 H 104 H 104 H Respiratory Rate 39 H 36 H 31 H Blood Pressure Pulse Oximetry 99 94 97 Oxygen Delivery Method Oxygen Flow Rate Fraction of Inspired Oxygen 06/01/22 16:46 06/01/22 16:46 06/01/22 16:50 Temperature Pulse Rate 103 H Respiratory Rate 33 H Blood Pressure 116/76 114/57 L Pulse Oximetry 97 Oxygen Delivery Method Oxygen Flow Rate Fraction of Inspired Oxygen 06/01/22 16:50 06/01/22 16:55 06/01/22 16:55 Temperature Pulse Rate 101 H 100 H Respiratory Rate 31 H 32 H Blood Pressure 101/56 L Pulse Oximetry 99 95 Oxygen Delivery Method Oxygen Flow Rate Fraction of Inspired Oxygen 06/01/22 17:00 06/01/22 17:00 06/01/22 17:05 Temperature Pulse Rate 98 H Respiratory Rate 31 H Blood Pressure 98/55 L 87/49 L Pulse Oximetry 95 Oxygen Delivery Method Heated High Flow Oxygen Flow Rate Fraction of Inspired Oxygen 06/01/22 17:05 06/01/22 17:06 06/01/22 17:06 Temperature Pulse Rate 97 H 97 H Respiratory Rate 32 H 32 H Blood Pressure 89/54 L Pulse Oximetry 95 94 Oxygen Delivery Method Oxygen Flow Rate Fraction of Inspired Oxygen 06/01/22 17:10 06/01/22 17:11 06/01/22 17:11 Temperature Pulse Rate 114 H 114 H Respiratory Rate 32 H 35 H Blood Pressure 145/72 H Pulse Oximetry 96 95 Oxygen Delivery Method Oxygen Flow Rate Fraction of Inspired Oxygen 06/01/22 17:15 06/01/22 17:17 06/01/22 17:17 Temperature Pulse Rate 105 H 101 H Respiratory Rate Blood Pressure 89/58 L Pulse Oximetry 96 96 Oxygen Delivery Method Oxygen Flow Rate Fraction of Inspired Oxygen 06/01/22 17:20 06/01/22 17:20 06/01/22 17:25 Temperature Pulse Rate 97 H Respiratory Rate Blood Pressure 93/56 L 95/53 L Pulse Oximetry 96 Oxygen Delivery Method Oxygen Flow Rate Fraction of Inspired Oxygen 06/01/22 17:25 06/01/22 17:30 06/01/22 17:30 Temperature Pulse Rate 95 H 93 H Respiratory Rate Blood Pressure 99/54 L Pulse Oximetry 96 97 Oxygen Delivery Method Oxygen Flow Rate Fraction of Inspired Oxygen 06/01/22 17:35 06/01/22 17:35 06/01/22 17:40 Temperature Pulse Rate 92 H Respiratory Rate 30 H Blood Pressure 87/52 L 88/55 L Pulse Oximetry 96 Oxygen Delivery Method Oxygen Flow Rate Fraction of Inspired Oxygen 06/01/22 17:40 06/01/22 17:45 06/01/22 17:45 Temperature Pulse Rate 91 H 91 H Respiratory Rate 31 H Blood Pressure 101/55 L Pulse Oximetry 95 96 Oxygen Delivery Method Oxygen Flow Rate Fraction of Inspired Oxygen 06/01/22 17:50 06/01/22 17:50 06/01/22 17:55 Temperature Pulse Rate 91 H Respiratory Rate 28 H Blood Pressure 101/56 L 100/59 L Pulse Oximetry 96 Oxygen Delivery Method Oxygen Flow Rate Fraction of Inspired Oxygen 06/01/22 17:55 06/01/22 18:00 06/01/22 18:00 Temperature Pulse Rate 88 87 Respiratory Rate 30 H 22 Blood Pressure 108/62 Pulse Oximetry 96 96 Oxygen Delivery Method Oxygen Flow Rate Fraction of Inspired Oxygen 06/01/22 18:05 06/01/22 18:05 06/01/22 18:10 Temperature Pulse Rate 86 Respiratory Rate 27 H Blood Pressure 114/62 114/58 L Pulse Oximetry 97 Oxygen Delivery Method Oxygen Flow Rate Fraction of Inspired Oxygen 06/01/22 18:10 06/01/22 18:15 06/01/22 18:15 Temperature Pulse Rate 85 83 Respiratory Rate 28 H 26 H Blood Pressure 108/55 L Pulse Oximetry 97 97 Oxygen Delivery Method Heated High Flow Oxygen Flow Rate 40 Fraction of Inspired Oxygen 06/01/22 18:20 06/01/22 18:20 06/01/22 18:25 Temperature Pulse Rate 82 Respiratory Rate 26 H Blood Pressure 104/58 L 103/58 L Pulse Oximetry 97 Oxygen Delivery Method Oxygen Flow Rate Fraction of Inspired Oxygen 06/01/22 18:25 06/01/22 18:30 06/01/22 18:30 Temperature Pulse Rate 81 80 Respiratory Rate 25 H 25 H Blood Pressure 100/57 L Pulse Oximetry 97 97 Oxygen Delivery Method Oxygen Flow Rate Fraction of Inspired Oxygen 06/01/22 18:35 06/01/22 18:35 06/01/22 18:40 Temperature Pulse Rate 79 Respiratory Rate 25 H Blood Pressure 97/54 L 98/54 L Pulse Oximetry 97 Oxygen Delivery Method Oxygen Flow Rate Fraction of Inspired Oxygen 06/01/22 18:40 06/01/22 18:45 06/01/22 18:45 Temperature Pulse Rate 78 78 Respiratory Rate 25 H 26 H Blood Pressure 102/59 L Pulse Oximetry 97 97 Oxygen Delivery Method Oxygen Flow Rate Fraction of Inspired Oxygen 06/01/22 18:50 06/01/22 18:50 06/01/22 18:55 Temperature Pulse Rate 77 Respiratory Rate 26 H Blood Pressure 103/56 L 102/56 L Pulse Oximetry 97 Oxygen Delivery Method Oxygen Flow Rate Fraction of Inspired Oxygen 06/01/22 18:55 06/01/22 19:00 06/01/22 19:00 Temperature Pulse Rate 76 76 Respiratory Rate 29 H 26 H Blood Pressure 103/56 L Pulse Oximetry 97 97 Oxygen Delivery Method Heated High Flow Oxygen Flow Rate Fraction of Inspired Oxygen 06/01/22 19:05 06/01/22 19:05 06/01/22 19:10 Temperature Pulse Rate 75 Respiratory Rate 26 H Blood Pressure 102/58 L 103/57 L Pulse Oximetry 97 Oxygen Delivery Method Oxygen Flow Rate Fraction of Inspired Oxygen 06/01/22 19:10 06/01/22 19:15 06/01/22 19:15 Temperature Pulse Rate 74 74 Respiratory Rate 23 24 Blood Pressure 105/55 L Pulse Oximetry 98 97 Oxygen Delivery Method Oxygen Flow Rate Fraction of Inspired Oxygen 06/01/22 19:20 06/01/22 19:20 06/01/22 19:25 Temperature Pulse Rate 74 Respiratory Rate 28 H Blood Pressure 107/56 L 105/57 L Pulse Oximetry 97 Oxygen Delivery Method Oxygen Flow Rate Fraction of Inspired Oxygen 06/01/22 19:25 06/01/22 19:30 06/01/22 19:30 Temperature Pulse Rate 74 75 Respiratory Rate 27 H 26 H Blood Pressure 106/61 Pulse Oximetry 97 98 Oxygen Delivery Method Oxygen Flow Rate Fraction of Inspired Oxygen 06/01/22 19:35 06/01/22 19:35 06/01/22 19:40 Temperature Pulse Rate 74 Respiratory Rate 27 H Blood Pressure 106/59 L 103/58 L Pulse Oximetry 98 Oxygen Delivery Method Oxygen Flow Rate Fraction of Inspired Oxygen 06/01/22 19:40 06/01/22 19:45 06/01/22 19:45 Temperature Pulse Rate 74 74 Respiratory Rate 27 H 25 H Blood Pressure 105/55 L Pulse Oximetry 98 98 Oxygen Delivery Method Heated High Flow Oxygen Flow Rate Fraction of Inspired Oxygen 06/01/22 19:56 06/01/22 19:50 06/01/22 19:50 Temperature Pulse Rate 72 73 Respiratory Rate 24 27 H Blood Pressure 102/56 L Pulse Oximetry 98 98 Oxygen Delivery Method Oxygen Flow Rate Fraction of Inspired Oxygen 06/01/22 19:55 06/01/22 19:55 06/01/22 20:00 Temperature Pulse Rate 72 Respiratory Rate 25 H Blood Pressure 97/52 L 101/56 L Pulse Oximetry 98 Oxygen Delivery Method Heated High Flow Oxygen Flow Rate Fraction of Inspired Oxygen 06/01/22 20:00 06/01/22 20:05 06/01/22 20:05 Temperature Pulse Rate 72 72 Respiratory Rate 27 H 30 H Blood Pressure 108/53 L Pulse Oximetry 98 97 Oxygen Delivery Method Oxygen Flow Rate Fraction of Inspired Oxygen 06/01/22 20:10 06/01/22 20:10 06/01/22 20:15 Temperature Pulse Rate 72 Respiratory Rate 29 H Blood Pressure 112/59 L 142/67 H Pulse Oximetry 98 Oxygen Delivery Method Oxygen Flow Rate Fraction of Inspired Oxygen 06/01/22 20:15 06/01/22 20:20 06/01/22 20:21 Temperature Pulse Rate 72 71 71 Respiratory Rate 26 H 28 H 25 H Blood Pressure Pulse Oximetry 97 97 97 Oxygen Delivery Method Oxygen Flow Rate Fraction of Inspired Oxygen 06/01/22 20:21 06/01/22 20:25 06/01/22 20:25 Temperature Pulse Rate 72 Respiratory Rate 27 H Blood Pressure 120/61 120/60 Pulse Oximetry 97 Oxygen Delivery Method Oxygen Flow Rate Fraction of Inspired Oxygen 06/01/22 20:30 06/01/22 20:30 06/01/22 20:35 Temperature Pulse Rate 71 Respiratory Rate 27 H Blood Pressure 122/64 118/60 Pulse Oximetry 98 Oxygen Delivery Method Oxygen Flow Rate Fraction of Inspired Oxygen 06/01/22 20:35 06/01/22 20:40 06/01/22 20:40 Temperature Pulse Rate 72 72 Respiratory Rate 24 29 H Blood Pressure 115/60 Pulse Oximetry 98 98 Oxygen Delivery Method Oxygen Flow Rate Fraction of Inspired Oxygen 06/01/22 20:45 06/01/22 20:45 06/01/22 20:50 Temperature Pulse Rate 71 Respiratory Rate 32 H Blood Pressure 116/61 122/62 Pulse Oximetry 98 Oxygen Delivery Method Heated High Flow Oxygen Flow Rate Fraction of Inspired Oxygen 06/01/22 20:50 06/01/22 20:55 06/01/22 20:55 Temperature Pulse Rate 71 71 Respiratory Rate 30 H 34 H Blood Pressure 118/64 Pulse Oximetry 97 97 Oxygen Delivery Method Oxygen Flow Rate Fraction of Inspired Oxygen 06/01/22 21:00 06/01/22 21:00 06/01/22 21:05 Temperature Pulse Rate 70 Respiratory Rate 31 H Blood Pressure 118/60 121/69 Pulse Oximetry 97 Oxygen Delivery Method Oxygen Flow Rate Fraction of Inspired Oxygen 06/01/22 21:05 06/01/22 21:10 06/01/22 21:10 Temperature Pulse Rate 71 72 Respiratory Rate 31 H 32 H Blood Pressure 114/57 L Pulse Oximetry 97 97 Oxygen Delivery Method Oxygen Flow Rate Fraction of Inspired Oxygen 06/01/22 21:15 06/01/22 21:15 06/01/22 21:20 Temperature Pulse Rate 71 Respiratory Rate 27 H Blood Pressure 115/59 L 106/60 Pulse Oximetry 98 Oxygen Delivery Method Oxygen Flow Rate Fraction of Inspired Oxygen 06/01/22 21:20 06/01/22 21:25 06/01/22 21:25 Temperature Pulse Rate 71 71 Respiratory Rate 29 H 27 H Blood Pressure 117/62 Pulse Oximetry 97 97 Oxygen Delivery Method Oxygen Flow Rate Fraction of Inspired Oxygen 06/01/22 21:30 06/01/22 21:30 06/01/22 21:35 Temperature Pulse Rate 72 Respiratory Rate 31 H Blood Pressure 125/63 120/62 Pulse Oximetry 97 Oxygen Delivery Method Oxygen Flow Rate Fraction of Inspired Oxygen 06/01/22 21:35 06/01/22 21:40 06/01/22 21:40 Temperature Pulse Rate 72 72 Respiratory Rate 29 H 30 H Blood Pressure 122/64 Pulse Oximetry 97 97 Oxygen Delivery Method Oxygen Flow Rate Fraction of Inspired Oxygen 06/01/22 21:53 06/01/22 21:55 06/01/22 22:00 Temperature Pulse Rate 77 77 Respiratory Rate 41 H Blood Pressure Pulse Oximetry 88 L 100 100 Oxygen Delivery Method Oxygen Flow Rate Fraction of Inspired Oxygen 06/01/22 22:02 06/01/22 22:02 06/01/22 22:05 Temperature Pulse Rate 75 76 Respiratory Rate 36 H 51 H Blood Pressure 132/71 Pulse Oximetry 100 100 Oxygen Delivery Method Oxygen Flow Rate Fraction of Inspired Oxygen 06/01/22 22:10 06/01/22 22:15 Temperature 99.2 F Pulse Rate 76 90 Respiratory Rate 55 H 75 H Blood Pressure Pulse Oximetry 98 96 Oxygen Delivery Method Oxygen Flow Rate 15 Fraction of Inspired Oxygen Fraction of Inspired Oxygen 35 SaO2/FiO2 Ratio 461 Oxygen Delivery Method Heated High Flow Oxygen Flow Rate 15 Narrative Exam Narrative: GEN: altered, in respiratory distress HEENT: moist mucous membranes, PERRL NECK: trachea midline, no JVD PULM: crackles bilaterally CV: regular rate and rhythm, no murmurs ABD: soft, nontender, nondistended, no organomegaly EXT: warm and well perfused with no edema NEURO: altereted, lethargic, no focal deficits noted Objective Labs 06/02/22 04:27 06/02/22 04:27 Labs: Laboratory Results - last 24 hr 06/01/22 06/01/22 06/01/22 11:48 11:48 11:48 WBC 15.5 H RBC 3.92 L Hgb 10.7 L Hct 32.4 L MCV 82.7 MCH 27.3 MCHC 33.0 RDW 16.6 H Plt Count 266 Neut % (Auto) 86.1 H Lymph % (Auto) 6.3 L [place] % (Auto) 7.0 Eos % (Auto) 0.1 L Baso % (Auto) 0.5 Neut # (Auto) 53529 H Lymph # (Auto) 1000 L [place] # (Auto) 1100 H Eos # (Auto) 0 Baso # (Auto) 100 PT 15.4 H INR 1.3 APTT 28 ABG pH ABG pCO2 ABG pO2 ABG HCO3 ABG Total CO2 ABG O2 Saturation ABG Base Excess FiO2 Sodium 134 L Potassium 4.2 Chloride 101 Carbon Dioxide 23 BUN 25 H Creatinine 1.26 H Estimated GFR > 60 BUN/Creatinine Ratio 19.8 Glucose 196 H Lactate Calcium 9.4 Total Bilirubin 0.7 AST 18 ALT 16 Alkaline Phosphatase 91 Total Creatine Kinase CK-MB (CK-2) CK-MB (CK-2) Rel Index Troponin I NT-Pro-B Natriuret Pep Total Protein 7.2 Albumin 3.7 Globulin 3.5 Albumin/Globulin Ratio 1.1 Procalcitonin Urine Color Urine Appearance Urine pH Ur Specific [place] Urine Protein Urine Glucose (UA) Urine Ketones Urine Occult Blood Urine Nitrate Urine Bilirubin Urine Urobilinogen Ur Leukocyte Esterase Urine RBC Urine WBC Ur Squamous Epith Cells Urine Bacteria Ur Culture Indicated? Chlamy pneumoniae PCR Adenovirus (PCR) B. pertussis DNA (PCR) B.parapertussis DNA PCR Coronavirus OC43 (PCR) Coronavirus HKU1 (PCR) Coronavirus 229E (PCR) SARS-CoV-2 (PCR) Coronavirus NL63 (PCR) Human Metapneumovir PCR Influenza Type A (PCR) Influenza Type B (PCR) M. pneumoniae (PCR) Parainfluenza 1 (PCR) Parainfluenza 2 (PCR) Parainfluenza 3 (PCR) Parainfluenza 4 (PCR) RSV (PCR) Entero/Rhino (PCR) Blood Type Antibody Screen 06/01/22 06/01/22 06/01/22 11:48 11:48 12:39 WBC RBC Hgb Hct MCV MCH MCHC RDW Plt Count Neut % (Auto) Lymph % (Auto) [place] % (Auto) Eos % (Auto) Baso % (Auto) Neut # (Auto) Lymph # (Auto) [place] # (Auto) Eos # (Auto) Baso # (Auto) PT INR APTT ABG pH ABG pCO2 ABG pO2 ABG HCO3 ABG Total CO2 ABG O2 Saturation ABG Base Excess FiO2 Sodium Potassium Chloride Carbon Dioxide BUN Creatinine Estimated GFR BUN/Creatinine Ratio Glucose Lactate 3.7 H Calcium Total Bilirubin AST ALT Alkaline Phosphatase Total Creatine Kinase CK-MB (CK-2) CK-MB (CK-2) Rel Index Troponin I NT-Pro-B Natriuret Pep Total Protein Albumin Globulin Albumin/Globulin Ratio Procalcitonin 0.36 Urine Color Urine Appearance Urine pH Ur Specific [place] Urine Protein Urine Glucose (UA) Urine Ketones Urine Occult Blood Urine Nitrate Urine Bilirubin Urine Urobilinogen Ur Leukocyte Esterase Urine RBC Urine WBC Ur Squamous Epith Cells Urine Bacteria Ur Culture Indicated? Chlamy pneumoniae PCR Adenovirus (PCR) B. pertussis DNA (PCR) B.parapertussis DNA PCR Coronavirus OC43 (PCR) Coronavirus HKU1 (PCR) Coronavirus 229E (PCR) SARS-CoV-2 (PCR) Coronavirus NL63 (PCR) Human Metapneumovir PCR Influenza Type A (PCR) Influenza Type B (PCR) M. pneumoniae (PCR) Parainfluenza 1 (PCR) Parainfluenza 2 (PCR) Parainfluenza 3 (PCR) Parainfluenza 4 (PCR) RSV (PCR) Entero/Rhino (PCR) Blood Type AB Positive Antibody Screen Negative 06/01/22 06/01/22 06/01/22 13:24 13:31 13:45 WBC RBC Hgb Hct MCV MCH MCHC RDW Plt Count Neut % (Auto) Lymph % (Auto) [place] % (Auto) Eos % (Auto) Baso % (Auto) Neut # (Auto) Lymph # (Auto) [place] # (Auto) Eos # (Auto) Baso # (Auto) PT INR APTT ABG pH ABG pCO2 ABG pO2 ABG HCO3 ABG Total CO2 ABG O2 Saturation ABG Base Excess FiO2 Sodium Potassium Chloride Carbon Dioxide BUN Creatinine Estimated GFR BUN/Creatinine Ratio Glucose Lactate Calcium Total Bilirubin AST ALT Alkaline Phosphatase Total Creatine Kinase 78 CK-MB (CK-2) TNP CK-MB (CK-2) Rel Index TNP Troponin I 0.016 NT-Pro-B Natriuret Pep 637 H Total Protein Albumin Globulin Albumin/Globulin Ratio Procalcitonin Urine Color Yellow Urine Appearance Clear Urine pH 6.5 Ur Specific [place] 1.010 Urine Protein 1+ H Urine Glucose (UA) Trace H Urine Ketones Negative Urine Occult Blood 1+ H Urine Nitrate Positive H Urine Bilirubin Negative Urine Urobilinogen 1.0 Ur Leukocyte Esterase 1+ H Urine RBC 5-10/hpf H Urine WBC 10-30/hpf H Ur Squamous Epith Cells 0-1 /hpf Urine Bacteria Many (>30) H Ur Culture Indicated? Specimen cultured Chlamy pneumoniae PCR Not detected Adenovirus (PCR) Not detected B. pertussis DNA (PCR) Not detected B.parapertussis DNA PCR Not detected Coronavirus OC43 (PCR) Not detected Coronavirus HKU1 (PCR) Not detected Coronavirus 229E (PCR) Not detected SARS-CoV-2 (PCR) Not detected Coronavirus NL63 (PCR) Not detected Human Metapneumovir PCR Not detected Influenza Type A (PCR) Not detected Influenza Type B (PCR) Not detected M. pneumoniae (PCR) Not detected Parainfluenza 1 (PCR) Not detected Parainfluenza 2 (PCR) Not detected Parainfluenza 3 (PCR) Not detected Parainfluenza 4 (PCR) Not detected RSV (PCR) Not detected Entero/Rhino (PCR) Not detected Blood Type Antibody Screen 06/01/22 06/01/22 06/01/22 15:48 16:05 16:05 WBC 15.2 H RBC 3.91 L Hgb 10.8 L Hct 32.3 L MCV 82.5 MCH 27.5 MCHC 33.3 RDW 16.2 H Plt Count 285 Neut % (Auto) 87.1 H Lymph % (Auto) 4.7 L [place] % (Auto) 7.5 Eos % (Auto) 0.0 L Baso % (Auto) 0.7 Neut # (Auto) 42908 H Lymph # (Auto) 700 L [place] # (Auto) 1100 H Eos # (Auto) 0 Baso # (Auto) 100 PT INR APTT ABG pH 7.48 H ABG pCO2 31.2 L ABG pO2 105 H ABG HCO3 24 ABG Total CO2 24 ABG O2 Saturation 99 ABG Base Excess 0.0 FiO2 35 Sodium 135 L Potassium 3.4 Chloride 102 Carbon Dioxide 24 BUN 24 H Creatinine 1.22 Estimated GFR > 60 BUN/Creatinine Ratio 19.7 Glucose 184 H Lactate Calcium 9.4 Total Bilirubin 0.7 AST 19 ALT 14 Alkaline Phosphatase 91 Total Creatine Kinase 71 CK-MB (CK-2) TNP CK-MB (CK-2) Rel Index TNP Troponin I < 0.012 NT-Pro-B Natriuret Pep 837 H Total Protein 7.1 Albumin 3.8 Globulin 3.3 Albumin/Globulin Ratio 1.2 Procalcitonin Urine Color Urine Appearance Urine pH Ur Specific [place] Urine Protein Urine Glucose (UA) Urine Ketones Urine Occult Blood Urine Nitrate Urine Bilirubin Urine Urobilinogen Ur Leukocyte Esterase Urine RBC Urine WBC Ur Squamous Epith Cells Urine Bacteria Ur Culture Indicated? Chlamy pneumoniae PCR Adenovirus (PCR) B. pertussis DNA (PCR) B.parapertussis DNA PCR Coronavirus OC43 (PCR) Coronavirus HKU1 (PCR) Coronavirus 229E (PCR) SARS-CoV-2 (PCR) Coronavirus NL63 (PCR) Human Metapneumovir PCR Influenza Type A (PCR) Influenza Type B (PCR) M. pneumoniae (PCR) Parainfluenza 1 (PCR) Parainfluenza 2 (PCR) Parainfluenza 3 (PCR) Parainfluenza 4 (PCR) RSV (PCR) Entero/Rhino (PCR) Blood Type Antibody Screen 06/01/22 16:05 WBC RBC Hgb Hct MCV MCH MCHC RDW Plt Count Neut % (Auto) Lymph % (Auto) [place] % (Auto) Eos % (Auto) Baso % (Auto) Neut # (Auto) Lymph # (Auto) [place] # (Auto) Eos # (Auto) Baso # (Auto) PT INR APTT ABG pH ABG pCO2 ABG pO2 ABG HCO3 ABG Total CO2 ABG O2 Saturation ABG Base Excess FiO2 Sodium Potassium Chloride Carbon Dioxide BUN Creatinine Estimated GFR BUN/Creatinine Ratio Glucose Lactate 1.8 Calcium Total Bilirubin AST ALT Alkaline Phosphatase Total Creatine Kinase CK-MB (CK-2) CK-MB (CK-2) Rel Index Troponin I NT-Pro-B Natriuret Pep Total Protein Albumin Globulin Albumin/Globulin Ratio Procalcitonin Urine Color Urine Appearance Urine pH Ur Specific [place] Urine Protein Urine Glucose (UA) Urine Ketones Urine Occult Blood Urine Nitrate Urine Bilirubin Urine Urobilinogen Ur Leukocyte Esterase Urine RBC Urine WBC Ur Squamous Epith Cells Urine Bacteria Ur Culture Indicated? Chlamy pneumoniae PCR Adenovirus (PCR) B. pertussis DNA (PCR) B.parapertussis DNA PCR Coronavirus OC43 (PCR) Coronavirus HKU1 (PCR) Coronavirus 229E (PCR) SARS-CoV-2 (PCR) Coronavirus NL63 (PCR) Human Metapneumovir PCR Influenza Type A (PCR) Influenza Type B (PCR) M. pneumoniae (PCR) Parainfluenza 1 (PCR) Parainfluenza 2 (PCR) Parainfluenza 3 (PCR) Parainfluenza 4 (PCR) RSV (PCR) Entero/Rhino (PCR) Blood Type Antibody Screen Assessment & Plan Assessment & Plan narrative: 1. Sepsis secondary to UTI with acute encephalopathy -presented with fevers, leukocytosis, tachypnea -UA positive for wbcs, bacteria, nitrates consistent with UTI -organ dysfunction with encephalopathy -chest xray more consistent with fluid overload and less likely pneumonia -ordered for antibiotcis with vancomycine and cefepime for now given severity of illness -mrsa swab ordered -follow up blood and urine cultures -wean antibiotics as able -careful with fluids as developed respiratory failure with fluid resuscitation -initially presented with elevated lactate which resolved with antibiotics and fluids -if becomes hypotensive will start levophed for MAP>65 2. Acute hypoxemic respiratory failure -probable secondary to fluid resuscitation in setting of CHF history -required high flow oxygen -hold off on further IV fluids -already on antibiotics as above, but doubt pneumonia -once infection under good control, start lasix -did not tolerate BIPAP on admission -as I suspect rapid fluid administration cause respiratory symptoms for now no indication for ECHO 3. Acute GI bleed -had episode of bleeding prior to arrival -no further bleeding in the hospital as of yet -continue protonix -prior to consideration of scope will management of sepsis and respiratory failure 4. Parkinsons disease -continue home medications selegiline, sinement, entacapone 5. CHF with hypertension -hold losartan -will likely need lasix once sepsis is better controlled with antibiotics -for now limit IV fluids 6. BPH -continue finasteride -hold flomax 7. Type 2 DM on insulin -for now ordered for insulin 50U BID, lower than baseline given not eating and sepsis -hold oral anti-hyperglycemics -increase insuliin to home dose as he improves -ordered insulin sliding scale I have obtained history and discussed plan with patient, and . I have discussed plan of care with ED physician and bedside nurse. I have reviewed labs, chest xray and previous medical notes. CODE: Full Proxy: Madhu Mayen, Quality VTE Deep Vein Thrombosis/Pulmonary Embolism Present on Admission: No MIPS - Meds 'Current medications' to include all prescriptions, [id number] products, herbals, cannabis/cannabidiol products, and vitamin/mineral/dietary (nutritional) supplements. I have utilized all available resources to obtain, update, or review the patient?s current medications. [If Yes, STOP here]: Yes
[2022-06-02] VITALS (30 sets, daily range): BP systolic 109–149; BP diastolic 57–78; PULSE 64–90; RESP 16–79; TEMP 36.6–37.7; O2SAT 92–98
[2022-06-02] MEDS: CEFEPIME 1 GM in SODIUM CHLORIDE 0.9% 100 ML IV (01:12)
[2022-06-02] MEDS: ACETAMINOPHEN 325 MG TABLET 650 MG PO (01:19)
[2022-06-02] MEDS: VANCOMYCIN 1,500 MG/300 ML PIGGYBACK 150 MG IV (04:23)
[2022-06-02 04:37] LABS: Add Manual Diff / Slide Review NO; Basophils Absolute Auto 100 /uL (0-100); Basophils Percent Auto 0.6 % (0-2); Eosinophils Absolute Auto 0 /uL (0-450); Eosinophils Percent Auto 0.2 % (2-4); Hematocrit 29.4 % (41-53); Hemoglobin 9.8 g/dL (13.5-17.5); Lymphocytes Absolute Auto 1200 /uL (1100-4500); Lymphocytes Percent Auto 10.6 % (25-40); Mean Corpuscular HGB Conc 33.5 % (30-36); Mean Corpuscular Hemoglobin 27.5 PG (26-34); Mean Corpuscular Volume 82.1 fL (80-100); Monocytes Absolute Auto 1000 /uL (0-900); Monocytes Percent Auto 8.9 % (3-14); Neutrophils Absolute Auto 8700 /uL (1500-7000); Neutrophils Percent Auto 79.7 % (50-75); Platelet Count 229 X10^3/uL (150-400); Red Blood Cell Count 3.58 X10^6/uL (4.5-5.9); Red Cell Distribution Width 16.3 % (11.6-14.8); White Blood Cell Count 10.9 X10^3/uL (4.5-11.0)
[2022-06-02 04:45] LABS: INR 1.4 (0.9-1.3); Prothrombin Time 16.1 SECONDS (10.1-12.7)
[2022-06-02 04:51] LABS: Alanine Aminotransferase 11 IU/L (<50); Albumin 3.2 g/dL (3.5-5.0); Alkaline Phosphatase 68 U/L (38-126); Aspartate Aminotransferase 16 IU/L (17-59); BUN Creatinine Ratio 18.6 (6-22); Bilirubin Total 0.6 mg/dL (0.2-1.3); Blood Urea Nitrogen 21 mg/dL (9-20); Calcium 8.5 mg/dL (8.4-10.2); Carbon Dioxide 28 mmol/L (22-32); Chloride 104 mmol/L (98-107); Estimated Glomerular Filt Rate > 60 mL/min (>60); Globulin 3.3 g/dL (1.7-4.1); Glucose 92 mg/dL (80-110); HEMOLYSIS < 15 (0-50); Magnesium 2.1 mg/dL (1.6-2.3); Phosphorous 3.7 mg/dL (2.3-3.7); Potassium 3.6 mmol/L (3.4-5.1); Sodium 137 mmol/L (137-145); Total Protein 6.5 g/dL (6.3-8.2)
--- NOTE | 2022-06-02 05:34 | RT ---
At 0533, noting pt asleep, comfortable. SpO2 98%, HR 67 BPM, spont. RR 24 BPM while on room-air. No apparent distress noted.
[2022-06-02 06:01] LABS: MRSA (Nasal) PCR Not Detected (Not Detect)
[2022-06-02] MEDS: CARBIDOPA-LEVODOPA 25/100 TABLET 2 EACH PO ×5 (06:08→22:13)
[2022-06-02] MEDS: FUROSEMIDE 20 MG/2 ML VIAL IV (06:56)
[2022-06-02] MEDS: INSULIN GLARGINE 100 UNIT/ML 3ML PEN 50 UNIT SUBCUT ×2 (08:21→20:50)
[2022-06-02] MEDS: CEFEPIME 2 GM in SODIUM CHLORIDE 0.9% 100 ML IV ×2 (08:21→19:48)
[2022-06-02] MEDS: PANTOPRAZOLE 40 MG VIAL IV ×2 (08:54→20:49)
--- NOTE | 2022-06-02 10:23 | PM.PN.1 ---
Exam Vital Signs (past 8 hours): - 06/02/22 03:00 06/02/22 03:00 06/02/22 04:02 Temperature Pulse Rate 67 64 Respiratory Rate 60 H 26 H Blood Pressure 116/59 L Pulse Oximetry 94 97 Oxygen Delivery Method Room Air Oxygen Flow Rate 40 0 Fraction of Inspired Oxygen 21 06/02/22 04:00 06/02/22 04:01 06/02/22 04:01 Temperature 98.9 F Pulse Rate 66 66 Respiratory Rate 57 H 63 H Blood Pressure 149/64 H Pulse Oximetry 96 97 Oxygen Delivery Method Oxygen Flow Rate 0 Fraction of Inspired Oxygen 06/02/22 05:00 06/02/22 05:00 06/02/22 06:00 Temperature Pulse Rate 67 72 Respiratory Rate 54 H 57 H Blood Pressure 149/71 H Pulse Oximetry 97 95 Oxygen Delivery Method Oxygen Flow Rate 0 Fraction of Inspired Oxygen 06/02/22 06:01 06/02/22 06:01 06/02/22 05:00 Temperature Pulse Rate 85 Respiratory Rate 62 H Blood Pressure 132/57 L Pulse Oximetry 92 Oxygen Delivery Method Room Air Oxygen Flow Rate 0 Fraction of Inspired Oxygen 06/02/22 07:00 06/02/22 07:01 06/02/22 07:01 Temperature Pulse Rate 75 75 Respiratory Rate 50 H 64 H Blood Pressure 109/58 L Pulse Oximetry 98 97 Oxygen Delivery Method Oxygen Flow Rate Fraction of Inspired Oxygen 06/02/22 08:00 06/02/22 07:00 06/02/22 09:00 Temperature 98 F Pulse Rate 71 70 Respiratory Rate 72 H 60 H Blood Pressure Pulse Oximetry 94 95 Oxygen Delivery Method Room Air Oxygen Flow Rate Fraction of Inspired Oxygen Fraction of Inspired Oxygen 21 SaO2/FiO2 Ratio 461 Oxygen Delivery Method Room Air Oxygen Flow Rate 0 Narrative Exam Narrative: GEN: NAD, diaphoretic HEENT: moist mucous membranes, PERRL NECK: trachea midline, no JVD PULM: diffuse wheezes CV: regular rate and rhythm, no murmurs ABD: soft, nontender, nondistended, no organomegaly EXT: warm and well perfused with no edema NEURO: no focal deficits noted Objective Labs 06/02/22 04:27 06/02/22 04:27 Labs: Laboratory Results - last 24 hr 06/01/22 06/01/22 06/01/22 11:48 11:48 11:48 WBC 15.5 H RBC 3.92 L Hgb 10.7 L Hct 32.4 L MCV 82.7 MCH 27.3 MCHC 33.0 RDW 16.6 H Plt Count 266 Neut % (Auto) 86.1 H Lymph % (Auto) 6.3 L [place] % (Auto) 7.0 Eos % (Auto) 0.1 L Baso % (Auto) 0.5 Neut # (Auto) 87702 H Lymph # (Auto) 1000 L [place] # (Auto) 1100 H Eos # (Auto) 0 Baso # (Auto) 100 PT 15.4 H INR 1.3 APTT 28 ABG pH ABG pCO2 ABG pO2 ABG HCO3 ABG Total CO2 ABG O2 Saturation ABG Base Excess FiO2 Sodium 134 L Potassium 4.2 Chloride 101 Carbon Dioxide 23 BUN 25 H Creatinine 1.26 H Estimated GFR > 60 BUN/Creatinine Ratio 19.8 Glucose 196 H Lactate Calcium 9.4 Phosphorus Magnesium Total Bilirubin 0.7 AST 18 ALT 16 Alkaline Phosphatase 91 Total Creatine Kinase CK-MB (CK-2) CK-MB (CK-2) Rel Index Troponin I NT-Pro-B Natriuret Pep Total Protein 7.2 Albumin 3.7 Globulin 3.5 Albumin/Globulin Ratio 1.1 Procalcitonin Urine Color Urine Appearance Urine pH Ur Specific [place] Urine Protein Urine Glucose (UA) Urine Ketones Urine Occult Blood Urine Nitrate Urine Bilirubin Urine Urobilinogen Ur Leukocyte Esterase Urine RBC Urine WBC Ur Squamous Epith Cells Urine Bacteria Ur Culture Indicated? Nasal Screen MRSA (PCR) Chlamy pneumoniae PCR Adenovirus (PCR) B. pertussis DNA (PCR) B.parapertussis DNA PCR Coronavirus OC43 (PCR) Coronavirus HKU1 (PCR) Coronavirus 229E (PCR) SARS-CoV-2 (PCR) Coronavirus NL63 (PCR) Human Metapneumovir PCR Influenza Type A (PCR) Influenza Type B (PCR) M. pneumoniae (PCR) Parainfluenza 1 (PCR) Parainfluenza 2 (PCR) Parainfluenza 3 (PCR) Parainfluenza 4 (PCR) RSV (PCR) Entero/Rhino (PCR) Blood Type Antibody Screen 06/01/22 06/01/22 06/01/22 11:48 11:48 12:39 WBC RBC Hgb Hct MCV MCH MCHC RDW Plt Count Neut % (Auto) Lymph % (Auto) [place] % (Auto) Eos % (Auto) Baso % (Auto) Neut # (Auto) Lymph # (Auto) [place] # (Auto) Eos # (Auto) Baso # (Auto) PT INR APTT ABG pH ABG pCO2 ABG pO2 ABG HCO3 ABG Total CO2 ABG O2 Saturation ABG Base Excess FiO2 Sodium Potassium Chloride Carbon Dioxide BUN Creatinine Estimated GFR BUN/Creatinine Ratio Glucose Lactate 3.7 H Calcium Phosphorus Magnesium Total Bilirubin AST ALT Alkaline Phosphatase Total Creatine Kinase CK-MB (CK-2) CK-MB (CK-2) Rel Index Troponin I NT-Pro-B Natriuret Pep Total Protein Albumin Globulin Albumin/Globulin Ratio Procalcitonin 0.36 Urine Color Urine Appearance Urine pH Ur Specific [place] Urine Protein Urine Glucose (UA) Urine Ketones Urine Occult Blood Urine Nitrate Urine Bilirubin Urine Urobilinogen Ur Leukocyte Esterase Urine RBC Urine WBC Ur Squamous Epith Cells Urine Bacteria Ur Culture Indicated? Nasal Screen MRSA (PCR) Chlamy pneumoniae PCR Adenovirus (PCR) B. pertussis DNA (PCR) B.parapertussis DNA PCR Coronavirus OC43 (PCR) Coronavirus HKU1 (PCR) Coronavirus 229E (PCR) SARS-CoV-2 (PCR) Coronavirus NL63 (PCR) Human Metapneumovir PCR Influenza Type A (PCR) Influenza Type B (PCR) M. pneumoniae (PCR) Parainfluenza 1 (PCR) Parainfluenza 2 (PCR) Parainfluenza 3 (PCR) Parainfluenza 4 (PCR) RSV (PCR) Entero/Rhino (PCR) Blood Type AB Positive Antibody Screen Negative 06/01/22 06/01/22 06/01/22 13:24 13:31 13:45 WBC RBC Hgb Hct MCV MCH MCHC RDW Plt Count Neut % (Auto) Lymph % (Auto) [place] % (Auto) Eos % (Auto) Baso % (Auto) Neut # (Auto) Lymph # (Auto) [place] # (Auto) Eos # (Auto) Baso # (Auto) PT INR APTT ABG pH ABG pCO2 ABG pO2 ABG HCO3 ABG Total CO2 ABG O2 Saturation ABG Base Excess FiO2 Sodium Potassium Chloride Carbon Dioxide BUN Creatinine Estimated GFR BUN/Creatinine Ratio Glucose Lactate Calcium Phosphorus Magnesium Total Bilirubin AST ALT Alkaline Phosphatase Total Creatine Kinase 78 CK-MB (CK-2) TNP CK-MB (CK-2) Rel Index TNP Troponin I 0.016 NT-Pro-B Natriuret Pep 637 H Total Protein Albumin Globulin Albumin/Globulin Ratio Procalcitonin Urine Color Yellow Urine Appearance Clear Urine pH 6.5 Ur Specific [place] 1.010 Urine Protein 1+ H Urine Glucose (UA) Trace H Urine Ketones Negative Urine Occult Blood 1+ H Urine Nitrate Positive H Urine Bilirubin Negative Urine Urobilinogen 1.0 Ur Leukocyte Esterase 1+ H Urine RBC 5-10/hpf H Urine WBC 10-30/hpf H Ur Squamous Epith Cells 0-1 /hpf Urine Bacteria Many (>30) H Ur Culture Indicated? Specimen cultured Nasal Screen MRSA (PCR) Chlamy pneumoniae PCR Not detected Adenovirus (PCR) Not detected B. pertussis DNA (PCR) Not detected B.parapertussis DNA PCR Not detected Coronavirus OC43 (PCR) Not detected Coronavirus HKU1 (PCR) Not detected Coronavirus 229E (PCR) Not detected SARS-CoV-2 (PCR) Not detected Coronavirus NL63 (PCR) Not detected Human Metapneumovir PCR Not detected Influenza Type A (PCR) Not detected Influenza Type B (PCR) Not detected M. pneumoniae (PCR) Not detected Parainfluenza 1 (PCR) Not detected Parainfluenza 2 (PCR) Not detected Parainfluenza 3 (PCR) Not detected Parainfluenza 4 (PCR) Not detected RSV (PCR) Not detected Entero/Rhino (PCR) Not detected Blood Type Antibody Screen 06/01/22 06/01/22 06/01/22 15:48 16:05 16:05 WBC 15.2 H RBC 3.91 L Hgb 10.8 L Hct 32.3 L MCV 82.5 MCH 27.5 MCHC 33.3 RDW 16.2 H Plt Count 285 Neut % (Auto) 87.1 H Lymph % (Auto) 4.7 L [place] % (Auto) 7.5 Eos % (Auto) 0.0 L Baso % (Auto) 0.7 Neut # (Auto) 29852 H Lymph # (Auto) 700 L [place] # (Auto) 1100 H Eos # (Auto) 0 Baso # (Auto) 100 PT INR APTT ABG pH 7.48 H ABG pCO2 31.2 L ABG pO2 105 H ABG HCO3 24 ABG Total CO2 24 ABG O2 Saturation 99 ABG Base Excess 0.0 FiO2 35 Sodium 135 L Potassium 3.4 Chloride 102 Carbon Dioxide 24 BUN 24 H Creatinine 1.22 Estimated GFR > 60 BUN/Creatinine Ratio 19.7 Glucose 184 H Lactate Calcium 9.4 Phosphorus Magnesium Total Bilirubin 0.7 AST 19 ALT 14 Alkaline Phosphatase 91 Total Creatine Kinase 71 CK-MB (CK-2) TNP CK-MB (CK-2) Rel Index TNP Troponin I < 0.012 NT-Pro-B Natriuret Pep 837 H Total Protein 7.1 Albumin 3.8 Globulin 3.3 Albumin/Globulin Ratio 1.2 Procalcitonin Urine Color Urine Appearance Urine pH Ur Specific [place] Urine Protein Urine Glucose (UA) Urine Ketones Urine Occult Blood Urine Nitrate Urine Bilirubin Urine Urobilinogen Ur Leukocyte Esterase Urine RBC Urine WBC Ur Squamous Epith Cells Urine Bacteria Ur Culture Indicated? Nasal Screen MRSA (PCR) Chlamy pneumoniae PCR Adenovirus (PCR) B. pertussis DNA (PCR) B.parapertussis DNA PCR Coronavirus OC43 (PCR) Coronavirus HKU1 (PCR) Coronavirus 229E (PCR) SARS-CoV-2 (PCR) Coronavirus NL63 (PCR) Human Metapneumovir PCR Influenza Type A (PCR) Influenza Type B (PCR) M. pneumoniae (PCR) Parainfluenza 1 (PCR) Parainfluenza 2 (PCR) Parainfluenza 3 (PCR) Parainfluenza 4 (PCR) RSV (PCR) Entero/Rhino (PCR) Blood Type Antibody Screen 06/01/22 06/02/22 06/02/22 16:05 04:27 04:27 WBC 10.9 RBC 3.58 L Hgb 9.8 L Hct 29.4 L MCV 82.1 MCH 27.5 MCHC 33.5 RDW 16.3 H Plt Count 229 Neut % (Auto) 79.7 H Lymph % (Auto) 10.6 L [place] % (Auto) 8.9 Eos % (Auto) 0.2 L Baso % (Auto) 0.6 Neut # (Auto) 8700 H Lymph # (Auto) 1200 [place] # (Auto) 1000 H Eos # (Auto) 0 Baso # (Auto) 100 PT 16.1 H INR 1.4 H APTT ABG pH ABG pCO2 ABG pO2 ABG HCO3 ABG Total CO2 ABG O2 Saturation ABG Base Excess FiO2 Sodium Potassium Chloride Carbon Dioxide BUN Creatinine Estimated GFR BUN/Creatinine Ratio Glucose Lactate 1.8 Calcium Phosphorus Magnesium Total Bilirubin AST ALT Alkaline Phosphatase Total Creatine Kinase CK-MB (CK-2) CK-MB (CK-2) Rel Index Troponin I NT-Pro-B Natriuret Pep Total Protein Albumin Globulin Albumin/Globulin Ratio Procalcitonin Urine Color Urine Appearance Urine pH Ur Specific [place] Urine Protein Urine Glucose (UA) Urine Ketones Urine Occult Blood Urine Nitrate Urine Bilirubin Urine Urobilinogen Ur Leukocyte Esterase Urine RBC Urine WBC Ur Squamous Epith Cells Urine Bacteria Ur Culture Indicated? Nasal Screen MRSA (PCR) Chlamy pneumoniae PCR Adenovirus (PCR) B. pertussis DNA (PCR) B.parapertussis DNA PCR Coronavirus OC43 (PCR) Coronavirus HKU1 (PCR) Coronavirus 229E (PCR) SARS-CoV-2 (PCR) Coronavirus NL63 (PCR) Human Metapneumovir PCR Influenza Type A (PCR) Influenza Type B (PCR) M. pneumoniae (PCR) Parainfluenza 1 (PCR) Parainfluenza 2 (PCR) Parainfluenza 3 (PCR) Parainfluenza 4 (PCR) RSV (PCR) Entero/Rhino (PCR) Blood Type Antibody Screen 06/02/22 06/02/22 04:27 04:37 WBC RBC Hgb Hct MCV MCH MCHC RDW Plt Count Neut % (Auto) Lymph % (Auto) [place] % (Auto) Eos % (Auto) Baso % (Auto) Neut # (Auto) Lymph # (Auto) [place] # (Auto) Eos # (Auto) Baso # (Auto) PT INR APTT ABG pH ABG pCO2 ABG pO2 ABG HCO3 ABG Total CO2 ABG O2 Saturation ABG Base Excess FiO2 Sodium 137 Potassium 3.6 Chloride 104 Carbon Dioxide 28 BUN 21 H Creatinine 1.13 Estimated GFR > 60 BUN/Creatinine Ratio 18.6 Glucose 92 Lactate Calcium 8.5 Phosphorus 3.7 Magnesium 2.1 Total Bilirubin 0.6 AST 16 L ALT 11 Alkaline Phosphatase 68 Total Creatine Kinase CK-MB (CK-2) CK-MB (CK-2) Rel Index Troponin I NT-Pro-B Natriuret Pep Total Protein 6.5 Albumin 3.2 L Globulin 3.3 Albumin/Globulin Ratio 1.0 Procalcitonin Urine Color Urine Appearance Urine pH Ur Specific [place] Urine Protein Urine Glucose (UA) Urine Ketones Urine Occult Blood Urine Nitrate Urine Bilirubin Urine Urobilinogen Ur Leukocyte Esterase Urine RBC Urine WBC Ur Squamous Epith Cells Urine Bacteria Ur Culture Indicated? Nasal Screen MRSA (PCR) Not detected Chlamy pneumoniae PCR Adenovirus (PCR) B. pertussis DNA (PCR) B.parapertussis DNA PCR Coronavirus OC43 (PCR) Coronavirus HKU1 (PCR) Coronavirus 229E (PCR) SARS-CoV-2 (PCR) Coronavirus NL63 (PCR) Human Metapneumovir PCR Influenza Type A (PCR) Influenza Type B (PCR) M. pneumoniae (PCR) Parainfluenza 1 (PCR) Parainfluenza 2 (PCR) Parainfluenza 3 (PCR) Parainfluenza 4 (PCR) RSV (PCR) Entero/Rhino (PCR) Blood Type Antibody Screen [facility] Medical History Acne Anemia Ankle pain Benign prostatic hyperplasia Chicken pox Congestive heart failure GERD (gastroesophageal reflux disease) History of prostate cancer Hypertension Measles Parkinson's disease Prostate cancer (~2010) Shoulder pain Type 2 diabetes mellitus Surgical History Anesthesia History of knee surgery Kidney stones Family History Father Stroke Mother Cancer Sister Hypertension Social History household members: spouse, family and children Smoking Status: Former smoker alcohol intake: never Assessment & Plan Assessment & Plan narrative: 1. Sepsis secondary to UTI, with acute encephalopathy now resolved -presented with fevers, leukocytosis, tachypnea -UA positive for wbcs, bacteria, nitrates consistent with UTI -organ dysfunction with encephalopathy -chest xray more consistent with fluid overload and less likely pneumonia -continue cefepime -stopped vanc due to neg MRSA screen and urine growing GNB's -blood culture NG at 24 hours, urine culture growing GNB -careful with fluids as developed respiratory failure with fluid resuscitation -initially presented with elevated lactate which resolved with antibiotics and fluids -can remove central line 2. Acute hypoxemic respiratory failure, resolved -probable secondary to fluid resuscitation in setting of CHF history -required high flow oxygen, then weaned off O2 on 06/02 -hold off on further IV fluids -already on antibiotics as above, but doubt pneumonia -patient notes extensive smoking history, very wheezy on exam -start prednisone 40mg x5 days -did not tolerate BIPAP on admission -now weaned off O2 3. Acute hematochezia -had episode of bleeding prior to arrival -no further bleeding in the hospital as of yet, Hgb stable -continue protonix -will need outpatient colonoscopy 4. Parkinsons disease -continue home medications selegiline, sinemet, entacapone -PT eval 5. CHF with hypertension -hold losartan -now -2L on I/O's since admission 6. BPH -continue finasteride -hold flomax 7. Type 2 DM on insulin -for now ordered for insulin 50U BID, lower than baseline given not eating and sepsis -hold oral anti-hyperglycemics -increase insulin to home dose as he improves -ordered insulin sliding scal CODE: Full Proxy: Madhu Mayen, Dispo: Home in 1-2 days if PT clears for home. Quality VTE Deep Vein Thrombosis/Pulmonary Embolism Present on Admission: No
[2022-06-02] MEDS: GABAPENTIN 100 MG CAPSULE PO ×2 (14:02→20:49)
[2022-06-02] MEDS: predniSONE 20 MG TABLET 40 MG PO (15:36)
[2022-06-02] MEDS: ENTACAPONE 200 MG TABLET PO ×2 (17:15→22:13)
[2022-06-02] MEDS: ATORVASTATIN 20 MG TABLET 10 MG PO (20:48)
[2022-06-02] MEDS: TIMOLOL 0.5% OPHTH 1 DROPS EYE-BOTH (20:49)
[2022-06-02] MEDS: CARBIDOPA LEVODOPA 1 EACH PO (20:49)
[2022-06-02] MEDS: SODIUM CHLORIDE 0.9% FLUSH 10 ML IV (20:49)
[2022-06-02] MEDS: INSULIN LISPRO 100 UNIT/ML 3ML VIAL SUBCUT (20:51)
[2022-06-03] VITALS (7 sets, daily range): BP systolic 140–159; BP diastolic 69–74; PULSE 66–79; RESP 17–73; TEMP 36.7–37.1; O2SAT 95–97
[2022-06-03 05:19] LABS: Add Manual Diff / Slide Review NO; Basophils Absolute Auto 0 /uL (0-100); Basophils Percent Auto 0.3 % (0-2); Eosinophils Absolute Auto 0 /uL (0-450); Hematocrit 32.2 % (41-53); Hemoglobin 10.8 g/dL (13.5-17.5); Lymphocytes Absolute Auto 700 /uL (1100-4500); Lymphocytes Percent Auto 10.7 % (25-40); Mean Corpuscular HGB Conc 33.6 % (30-36); Mean Corpuscular Hemoglobin 27.4 PG (26-34); Mean Corpuscular Volume 81.5 fL (80-100); Monocytes Absolute Auto 500 /uL (0-900); Monocytes Percent Auto 6.7 % (3-14); Neutrophils Absolute Auto 5600 /uL (1500-7000); Neutrophils Percent Auto 82.3 % (50-75); Platelet Count 272 X10^3/uL (150-400); Red Blood Cell Count 3.95 X10^6/uL (4.5-5.9); White Blood Cell Count 6.8 X10^3/uL (4.5-11.0)
[2022-06-03 05:26] LABS: BUN Creatinine Ratio 22.7 (6-22); Blood Urea Nitrogen 22 mg/dL (9-20); Calcium 8.8 mg/dL (8.4-10.2); Carbon Dioxide 23 mmol/L (22-32); Chloride 104 mmol/L (98-107); Estimated Glomerular Filt Rate > 60 mL/min (>60); Glucose 209 mg/dL (80-110); HEMOLYSIS < 15 (0-50); Potassium 3.9 mmol/L (3.4-5.1); Sodium 136 mmol/L (137-145)
[2022-06-03] MEDS: CARBIDOPA-LEVODOPA 25/100 TABLET 2 EACH PO ×5 (06:07→21:57)
[2022-06-03] MEDS: ENTACAPONE 200 MG TABLET PO ×5 (06:07→21:57)
[2022-06-03] MEDS: INSULIN LISPRO 100 UNIT/ML 3ML VIAL SUBCUT ×4 (08:14→21:01)
[2022-06-03] MEDS: CEFEPIME 2 GM in SODIUM CHLORIDE 0.9% 100 ML IV (08:42)
[2022-06-03] MEDS: FINASTERIDE 1 MG 1 EACH PO (08:44)
[2022-06-03] MEDS: CARBIDOPA LEVODOPA 1 EACH PO ×2 (08:44→20:59)
[2022-06-03] MEDS: predniSONE 20 MG TABLET 40 MG PO (08:45)
[2022-06-03] MEDS: GABAPENTIN 100 MG CAPSULE PO ×3 (08:45→20:58)
[2022-06-03] MEDS: SODIUM CHLORIDE 0.9% FLUSH 10 ML IV ×2 (08:46→21:05)
[2022-06-03] MEDS: INSULIN GLARGINE 100 UNIT/ML 3ML PEN 50 UNIT SUBCUT ×2 (09:02→20:59)
[2022-06-03] MEDS: PANTOPRAZOLE 40 MG VIAL IV (09:03)
--- NOTE | 2022-06-03 11:07 | PM.PN.1 ---
Exam Vital Signs (past 8 hours): - 06/03/22 04:00 06/03/22 08:00 Temperature 98.7 F 98.0 F Pulse Rate 68 66 Respiratory Rate 19 73 H Blood Pressure 159/69 H 151/73 H Pulse Oximetry 97 97 Oxygen Flow Rate 0 Fraction of Inspired Oxygen 21 SaO2/FiO2 Ratio 461 Oxygen Delivery Method Room Air Oxygen Flow Rate 0 Narrative Exam Narrative: GEN: NAD HEENT: moist mucous membranes, PERRL NECK: trachea midline, no JVD PULM: clear breath sounds CV: regular rate and rhythm, no murmurs ABD: soft, nontender, nondistended, no organomegaly EXT: warm and well perfused with no edema NEURO: no focal deficits noted Objective Labs 06/03/22 04:13 06/03/22 04:13 Labs: Laboratory Results - last 24 hr 06/03/22 06/03/22 04:13 04:13 WBC 6.8 RBC 3.95 L Hgb 10.8 L Hct 32.2 L MCV 81.5 MCH 27.4 MCHC 33.6 RDW 16.0 H Plt Count 272 Neut % (Auto) 82.3 H Lymph % (Auto) 10.7 L [place] % (Auto) 6.7 Eos % (Auto) 0.0 L Baso % (Auto) 0.3 Neut # (Auto) 5600 Lymph # (Auto) 700 L [place] # (Auto) 500 Eos # (Auto) 0 Baso # (Auto) 0 Sodium 136 L Potassium 3.9 Chloride 104 Carbon Dioxide 23 BUN 22 H Creatinine 0.97 Estimated GFR > 60 BUN/Creatinine Ratio 22.7 H Glucose 209 H D Calcium 8.8 PFSH Medical History Acne Anemia Ankle pain Benign prostatic hyperplasia Chicken pox Congestive heart failure GERD (gastroesophageal reflux disease) History of prostate cancer Hypertension Measles Parkinson's disease Prostate cancer (~2010) Shoulder pain Type 2 diabetes mellitus Surgical History Anesthesia History of knee surgery Kidney stones Family History Father Stroke Mother Cancer Sister Hypertension Social History household members: spouse, family and children Smoking Status: Former smoker alcohol intake: never Assessment & Plan Assessment & Plan narrative: 1. Sepsis secondary to UTI, with acute encephalopathy now resolved -presented with fevers, leukocytosis, tachypnea -UA positive for wbcs, bacteria, nitrates consistent with UTI -organ dysfunction with encephalopathy -chest xray more consistent with fluid overload and less likely pneumonia -cefepime downgraded to rocephin 1g daily -stopped vanc due to neg MRSA screen -blood culture NG at 24 hours, urine culture growing E. coli -careful with fluids as developed respiratory failure with fluid resuscitation -initially presented with elevated lactate which resolved with antibiotics and fluids -can remove central line 2. Acute hypoxemic respiratory failure, resolved -probable secondary to fluid resuscitation in setting of CHF history -required high flow oxygen, then weaned off O2 on 06/02 -hold off on further IV fluids -already on antibiotics as above, but doubt pneumonia -patient notes extensive smoking history, very wheezy on exam -start prednisone 40mg x5 days -did not tolerate BIPAP on admission -now weaned off O2 3. Acute hematochezia -had episode of bleeding prior to arrival -no further bleeding in the hospital as of yet, Hgb stable -continue protonix -will need outpatient colonoscopy 4. Parkinsons disease -continue home medications selegiline, sinemet, entacapone -PT eval rec SNF 5. CHF with hypertension -continue losartan -now -2L on I/O's since admission 6. BPH -continue finasteride -continue flomax 7. Type 2 DM on insulin -for now ordered for insulin 50U BID, lower than baseline given not eating and sepsis -hold oral anti-hyperglycemics -increase insulin to home dose as he improves -ordered insulin sliding scal CODE: Full Proxy: Madhu Mayen, Dispo: Pending SNF placement. Quality VTE Deep Vein Thrombosis/Pulmonary Embolism Present on Admission: No
--- NOTE | 2022-06-03 11:34 | PT.IIE ---
Current Diagnoses Sepsis, unspecified organism (06/01/22) Surgical History (Last Reviewed 06/02/22 @ 05:12 by Gadiel Palm MD) Anesthesia History of knee surgery Kidney stones Medical History (Last Reviewed 06/02/22 @ 05:12 by Gadiel Palm MD) Acne Anemia Ankle pain Benign prostatic hyperplasia Chicken pox Congestive heart failure GERD (gastroesophageal reflux disease) History of prostate cancer Hypertension Measles Parkinson's disease Prostate cancer (~2010) Shoulder pain Type 2 diabetes mellitus Physical Therapy Inpatient Evaluation/Re-Eval M1 PT/OT-IP Prior Functional Status Start: 06/03/22 11:18 Freq: NEEDED Status: Active Protocol: Document 06/03/22 11:18 ES (Rec: 06/03/22 11:34 ES [id number]) Medical Review Prior Functional Status Medical History Reviewed Yes Communication WFL Mobility and Gait Indep with occasional use of 4WW Activities of Daily Living and IADL's Assistance for lower body dressing Social History Household Members spouse,family,children Living Arrangements House Number of Floors (Floors) One Floor Number of Stairs To Enter/Railing? 3, no rail, uses side of house for balance Home Environment Standard Height Toilet,Walk in Shower,Tub/Shower Doors Home Equipment Four Wheel Walker,Straight Cane,Shower Seat with Backrest Employment Status Retired Additional Social History Comment Lives with , daughter and KATINA, grandson and great grandchild. Does not drive ( does). M2 PT-IP Current Condition Start: 06/03/22 11:18 Freq: NEEDED Status: Active Protocol: Document 06/03/22 11:18 ES (Rec: 06/03/22 11:34 ES [id number]) Physical Therapy Current Condition Current Condition Evaluation Date 06/03/22 Treatment Diagnosis Sepsis 2/2 UTI, respiratory failure, GI bleed, PD Onset Date 06/01/22 M3 PT-IP Subjective Start: 06/03/22 11:18 Freq: NEEDED Status: Active Protocol: Document 06/03/22 11:18 ES (Rec: 06/03/22 11:34 ES [id number]) Subjective Physical Therapy Visit Type Type Initial Evaluation Visit Start Time 10:21 Visit Stop Time 10:53 Total Visit Minutes 32 Physical Therapy Visit Comments Patient Comments Patient reported he hasn't been out of bed for 4 days and not sure how this will go but willing to try. Stated he has some trouble moving around due to his PD - has a brain implant that helps. Therapy Pain Assessment Pain Present Pain Present Denied Pain M4 PT-IP Mobility and Gait Start: 06/03/22 11:18 Freq: NEEDED Status: Active Protocol: Document 06/03/22 11:18 ES (Rec: 06/03/22 11:34 ES [id number]) PT-Bed Mobility Assessment Rolling Type of Rolling Roll to Right,Roll to Left Level of Assist Standby Assistance Supine to Sit Supine to Sit Minimal Assistance,Head of Bed Elevated,Bedrails Scooting Scooting to Edge of Bed Standby Assistance PT-Transfer Assessment Sit to and From Stand Sit to and from Stand Moderate Assistance,Use of Upper Extremities Equipment Transfer Assistive Device Gait Belt,Front Wheeled Walker Transfers Transfer Destination Chair Transfer Technique Stand Step Pivot Transfer Ability Level of Assist Minimal Assistance,Use of Upper Extremities Comments Mobility Comments Initially had posterior lean with standing, improved with cues for forward weight shift and manual correction. Cued for putting feet back and head forward during sit to stand to improve forward weight shift. Gait Assessment Gait Gait Assistance Required: Contact Guard Assist Distance (Feet) 20 Assistive Devices Assistive Device Gait Belt,Front Wheeled Walker Gait Deviations General Gait Pattern Decreased Stride Length, Decreased Feet Clearance, Festinating Factors Limiting Gait Function Factors Limiting Gait Function Decreased Strength,Poor Balance Comments Gait Comments Ambulated with decreased johnnie and speed, short step length minimally improved with cues for big steps. Some festinating noted with turning . C/o lightheadedness with standing/walking, requiring seated rest break after 10 feet. BP was 150's/80's after ambulating. PT-Balance Assessment Sitting Balance and Reactions Static Sitting Balance Ability Good Dynamic Sitting Balance Ability Fair Standing Balance and Reactions Static Standing Balance Ability Fair Dynamic Standing Balance Ability Fair Device Used FWW M5 PT-IP Objective Assessments Start: 06/03/22 11:18 Freq: NEEDED Status: Active Protocol: Document 06/03/22 11:18 ES (Rec: 06/03/22 11:34 ES [id number]) Orientation Orientation/Cognition Level of Alertness Alert Orientation Name,Age,Birthday,Month,Year, Place,Situation Language Function Ability No Deficits Noted Safety Awareness Decreased Safety Awareness Memory Description No Deficits Noted Gross Range of Motion Upper Extremity ROM Assessment Within Functional Limits Lower Extremity ROM Assessment Within Functional Limits Impairments Stiffness throughout due to PD Strength Upper Extremity Strength Assessment Within Functional Limits Lower Extremity Strength Assessment Within Functional Limits Comments Strength Comments Decreased functional strength/ repetitive strength though tested 5/5 with MMT. Sensation Assessment Sensation Gross Sensation WNL M6 PT-IP Treatment Start: 06/03/22 11:18 Freq: NEEDED Status: Active Protocol: Document 06/03/22 11:18 ES (Rec: 06/03/22 11:34 ES [id number]) Physical Therapy Treatment Education Education Provided Safety M7 PT-IP Assessment and Plan Start: 06/03/22 11:18 Freq: NEEDED Status: Active Protocol: Document 06/03/22 11:18 ES (Rec: 06/03/22 11:34 ES [id number]) PT Summary Assessment and Plan Potential Rehabilitation Potential Good Status of Condition at Evaluation Stable Summary Impairments Strength,Balance,Bed Mobility, Transfers,Gait,Activity Tolerance Assessment Summary Patient is a 72 year old male who presents with impaired functional mobility due to the above problems. He demonstrated increased difficulty with bed mobility, transfers, and gait compared to his baseline during eval, requiring min/mod A and use of FWW, and only able to ambulate short distances at a time (less than household distances). He would benefit from further skilled therapy to address his deficits in order to return to PLOF. He may require SNF placement to achieve this as he is currently not safe to d/c home with family. Goals Bed Mobility Goal Standby Assistance Transfer Goal Standby Assistance,Four Wheeled Walker Gait Goal Standby Assistance,Four Wheel Walker Gait Distance 100 Other Goals Patient will be able to ascend /descend 3 stairs without railing with min A. Days to Meet Goals 3 Frequency of Treatment Frequency Of Treatment Twice a Day Treatment Plan Physical Therapy Treatment Plan Bed Mobility Training,Transfer Training,Gait Training, Therapeutic Exercise,Balance Retraining,Discharge Planning, Neuromuscular Re-ed,Manual Therapy Other Recommendations and Next Treatment Progress transfers, gait, Focus stair training when appropriate. Recommendations To Nursing Amount of Assist Needed 1 Person Assist Discharge Recommendations PT Discharge Recommendations Home vs SNF Equipment Needed for Home Before Possibly FWW Discharge Transportation Needs at Discharge Private Vehicle,Wheelchair/ Cabulance
[2022-06-03] MEDS: LOSARTAN 50 MG TABLET PO (11:41)
[2022-06-03] MEDS: TAMSULOSIN 0.4 MG CAPSULE 0.8 MG PO (11:41)
--- NOTE | 2022-06-03 13:24 | CM.DANOTE ---
Addendum entered by RENATE Bowman 06/03/22 15:27: ADD: faxed this referral to [facility] Jennifer is not in the office today (typical admissions staffing) so paper fax sent to Edna at [facility] Original Note: Initial DCP Assessment Note 72 yo M resident of [place], presents with sepsis sec to UTI Therapies have recommended SNF upon discharge and patient agreeable. Patient lives w/spouse, daughter, KATINA, grandson and great grandchild and mostly indp at baseline w/walker Reviewed [facility] SNF choices w/patient using CM IPAD and patient adamant about staying in [place] so [facility] contacted; had to leave a msg asking for review of this referral. Awaiting CB Plan: Discharge to [facility] vs Home w/family HH. following closely RANJITH Discharge Planning/Care Management CM Discharge Assessment Start: 06/03/22 13:21 Freq: Status: Active Protocol: Document 06/03/22 13:21 (Rec: 06/03/22 13:24 [id number]) Discharge Planning Assessment Assigned Resources Representative RENATE Calle DPOA/Assigned Designee Name Madhu Mayen spouse Contact Information [phone] Advance Directives? Yes Advance Directives on File No History Provided By Patient,Medical Record Prior Living Arrangements House Household Members spouse,family,children Type of transporation used prior to Relies on Others admit Independent with ADL's Yes Is patient alert and oriented? Yes Needs Assistance With Meal Prep,Home Chores / Shopping Patient/Family Preference Custodial Facility Barriers to Discharge Yes Comment Weakness, not at PLOF Discharge Plan Custodial Facility Transportation Arrangement Likely cabulance Referrals Initiated Custodial Additional Comment [facility]+R Medicare Choice List Provided Yes Medicare choice list reviewed on patient electronic tablet with SNF/HH Preference [facility]. Patient does not want to go out of town for SNF upon discharge Has Agency SNF been contacted Yes Comment awaiting CB to discuss this referral
--- NOTE | 2022-06-03 15:43 | PT.IPTN ---
Current Diagnoses Sepsis, unspecified organism (06/01/22) Physical Therapy Treatment Note M2 PT-IP Current Condition Start: 06/03/22 11:18 Freq: NEEDED Status: Active Protocol: Document 06/03/22 11:18 ES (Rec: 06/03/22 11:34 ES [id number]) Physical Therapy Current Condition Current Condition Evaluation Date 06/03/22 Treatment Diagnosis Sepsis 2/2 UTI, respiratory failure, GI bleed, PD Onset Date 06/01/22 M3 PT-IP Subjective Start: 06/03/22 11:18 Freq: NEEDED Status: Active Protocol: Document 06/03/22 15:28 KS (Rec: 06/03/22 16:19 KS [id number]) Subjective Physical Therapy Visit Type Type Treatment Note Visit Start Time 15:28 Visit Stop Time 15:43 Total Visit Minutes 15 Number of ASTROCHEMIST Visits 1 Physical Therapy Visit Comments Patient Comments Pt eager to mobilize. M4 PT-IP Mobility and Gait Start: 06/03/22 11:18 Freq: NEEDED Status: Active Protocol: Document 06/03/22 15:28 KS (Rec: 06/03/22 16:19 KS [id number]) PT-Transfer Assessment Sit to and From Stand Sit to and from Stand Moderate Assistance,Use of Upper Extremities Equipment Transfer Assistive Device Gait Belt,Front Wheeled Walker Transfers Transfer Destination Chair Transfer Technique ambulated Transfer Ability Level of Assist Moderate Assistance,1 Person Assistance,Use of Upper Extremities Comments Mobility Comments Pt in chair upon arrival, agreeable to ambulate. Mod A for sit<>stand w/ FWW. Pt ambulated ~40 ft w/ FWW, did become fatigued needing to sit back down. Left in chair w/ all needs in reach. Gait Assessment Gait Gait Assistance Required: Contact Guard Assist Distance (Feet) 40 Assistive Devices Assistive Device Gait Belt,Front Wheeled Walker Gait Deviations General Gait Pattern Decreased Stride Length, Decreased Feet Clearance, Festinating Factors Limiting Gait Function Factors Limiting Gait Function Decreased Strength,Poor Balance Comments Gait Comments Poor endurance during ambulation, but no LOB w/ FWW. Stair Climbing Assessment Comments Stair Climbing Comments Did not assess, has 3 MILADIS PT-Balance Assessment Sitting Balance and Reactions Static Sitting Balance Ability Good Dynamic Sitting Balance Ability Fair Standing Balance and Reactions Static Standing Balance Ability Fair Dynamic Standing Balance Ability Fair Device Used FWW M5 PT-IP Objective Assessments Start: 06/03/22 11:18 Freq: NEEDED Status: Active Protocol: Document 06/03/22 11:18 ES (Rec: 06/03/22 11:34 ES [id number]) Orientation Orientation/Cognition Level of Alertness Alert Orientation Name,Age,Birthday,Month,Year, Place,Situation Language Function Ability No Deficits Noted Safety Awareness Decreased Safety Awareness Memory Description No Deficits Noted Gross Range of Motion Upper Extremity ROM Assessment Within Functional Limits Lower Extremity ROM Assessment Within Functional Limits Impairments Stiffness throughout due to PD Strength Upper Extremity Strength Assessment Within Functional Limits Lower Extremity Strength Assessment Within Functional Limits Comments Strength Comments Decreased functional strength/ repetitive strength though tested 5/5 with MMT. Sensation Assessment Sensation Gross Sensation WNL M6 PT-IP Treatment Start: 06/03/22 11:18 Freq: NEEDED Status: Active Protocol: Document 06/03/22 15:28 KS (Rec: 06/03/22 16:19 KS [id number]) Physical Therapy Treatment Exercises Exercises Ankle Pumps,Gluteal Sets,Quad Sets Education Education Provided Safety M7 PT-IP Assessment and Plan Start: 06/03/22 11:18 Freq: NEEDED Status: Active Protocol: Document 06/03/22 15:28 KS (Rec: 06/03/22 16:19 KS [id number]) PT Summary Assessment and Plan Potential Rehabilitation Potential Good Summary Impairments Strength,Balance,Bed Mobility, Transfers,Gait,Activity Tolerance Progress Towards Goals Slow Progress due to Activity Tolerance Assessment Summary Pt able to progress gait distance, but remains limited by poor endurance and requires Mod A for sit<>stand w/ FWW. Will continues to assess progress, however at this time would benefit from SNF as he does not have necessary support at home. Goals Bed Mobility Goal Standby Assistance Transfer Goal Standby Assistance,Four Wheeled Walker Gait Goal Standby Assistance,Four Wheel Walker Gait Distance 100 Other Goals Patient will be able to ascend /descend 3 stairs without railing with min A. Days to Meet Goals 3 Frequency of Treatment Frequency Of Treatment Twice a Day Treatment Plan Physical Therapy Treatment Plan Bed Mobility Training,Transfer Training,Gait Training, Therapeutic Exercise,Balance Retraining,Discharge Planning, Neuromuscular Re-ed,Manual Therapy Other Recommendations and Next Treatment Progress transfers, gait, Focus stair training when appropriate. Recommendations To Nursing Amount of Assist Needed 1 Person Assist Discharge Recommendations PT Discharge Recommendations Home with 30/08 Assist Available,Home Health,SNF Rehab Equipment Needed for Home Before Possibly FWW, has 4WW Discharge Transportation Needs at Discharge Private Vehicle,Wheelchair/ Cabulance
[2022-06-03] MEDS: cefTRIAXone 1,000 MG in SODIUM CHLORIDE 0.9% 100 ML 200 MG IV (17:58)
[2022-06-03] MEDS: PANTOPRAZOLE DR 40 MG TABLET PO (20:58)
[2022-06-03] MEDS: ATORVASTATIN 20 MG TABLET 10 MG PO (20:58)
[2022-06-03] MEDS: TIMOLOL 0.5% OPHTH 1 DROPS EYE-BOTH (20:58)
[2022-06-04 04:00] VITALS: BP 139/56; PULSE 64; RESP 16; TEMP 36.9; O2SAT 97
[2022-06-04] MEDS: ENTACAPONE 200 MG TABLET PO ×3 (05:37→13:42)
[2022-06-04] MEDS: CARBIDOPA-LEVODOPA 25/100 TABLET 2 EACH PO ×3 (05:37→13:41)
[2022-06-04 06:42] LABS: Add Manual Diff / Slide Review NO; Basophils Absolute Auto 100 /uL (0-100); Basophils Percent Auto 0.6 % (0-2); Eosinophils Absolute Auto 100 /uL (0-450); Hematocrit 32.1 % (41-53); Hemoglobin 10.6 g/dL (13.5-17.5); Lymphocytes Absolute Auto 1600 /uL (1100-4500); Lymphocytes Percent Auto 18.5 % (25-40); Mean Corpuscular Hemoglobin 27.4 PG (26-34); Monocytes Absolute Auto 700 /uL (0-900); Monocytes Percent Auto 7.6 % (3-14); Neutrophils Absolute Auto 6200 /uL (1500-7000); Neutrophils Percent Auto 72.3 % (50-75); Platelet Count 317 X10^3/uL (150-400); Red Blood Cell Count 3.86 X10^6/uL (4.5-5.9); Red Cell Distribution Width 16.4 % (11.6-14.8); White Blood Cell Count 8.6 X10^3/uL (4.5-11.0)
[2022-06-04 06:51] LABS: Blood Urea Nitrogen 26 mg/dL (9-20); Calcium 8.8 mg/dL (8.4-10.2); Carbon Dioxide 26 mmol/L (22-32); Chloride 107 mmol/L (98-107); Estimated Glomerular Filt Rate > 60 mL/min (>60); Glucose 123 mg/dL (80-110); HEMOLYSIS < 15 (0-50); Potassium 3.7 mmol/L (3.4-5.1); Sodium 137 mmol/L (137-145)
--- NOTE | 2022-06-04 08:56 | PC.NURSE ---
Addendum entered by Ria Paul R.N. 06/04/22 14:55: Report called to [facility] and patient left via wheelchair. Original Note: Patient is alert and oriented x4, he denies pain. Blood sugar 105. Patient lung sounds clear, he does have a cough but nothing coming up. Given 50u of insulin to his r.lower quadrant. is at bedside and patient is comfortable. He ate well at breakfast.
[2022-06-04] MEDS: CARBIDOPA LEVODOPA 1 EACH PO (09:03)
[2022-06-04] MEDS: FINASTERIDE 1 MG 1 EACH PO (09:04)
[2022-06-04 09:05] VITALS: BP 132/62; PULSE 62
[2022-06-04] MEDS: LOSARTAN 50 MG TABLET PO (09:05)
[2022-06-04] MEDS: GABAPENTIN 100 MG CAPSULE PO (09:05)
[2022-06-04] MEDS: PANTOPRAZOLE DR 40 MG TABLET PO (09:07)
[2022-06-04] MEDS: predniSONE 20 MG TABLET 40 MG PO (09:08)
[2022-06-04] MEDS: TAMSULOSIN 0.4 MG CAPSULE 0.8 MG PO (09:09)
[2022-06-04] MEDS: INSULIN GLARGINE 100 UNIT/ML 3ML PEN 50 UNIT SUBCUT (09:11)
--- NOTE | 2022-06-04 11:40 | PT.IPTN ---
Current Diagnoses Sepsis, unspecified organism (06/01/22) Physical Therapy Treatment Note M2 PT-IP Current Condition Start: 06/03/22 11:18 Freq: NEEDED Status: Active Protocol: Document 06/03/22 11:18 ES (Rec: 06/03/22 11:34 ES [id number]) Physical Therapy Current Condition Current Condition Evaluation Date 06/03/22 Treatment Diagnosis Sepsis 2/2 UTI, respiratory failure, GI bleed, PD Onset Date 06/01/22 M3 PT-IP Subjective Start: 06/03/22 11:18 Freq: NEEDED Status: Active Protocol: Document 06/04/22 12:08 TS (Rec: 06/04/22 12:25 TS [id number]) Subjective Physical Therapy Visit Type Type Treatment Note Visit Start Time 11:40 Visit Stop Time 12:00 Total Visit Minutes 20 Number of DIGITAL PRE PRESS OPERATOR Visits 2 Physical Therapy Visit Comments Patient Comments Pt reports he feels like he has improved and getting his strength back. M4 PT-IP Mobility and Gait Start: 06/03/22 11:18 Freq: NEEDED Status: Active Protocol: Document 06/04/22 12:08 TS (Rec: 06/04/22 12:25 TS [id number]) PT-Transfer Assessment Sit to and From Stand Sit to and from Stand Standby Assistance,Use of Upper Extremities Equipment Transfer Assistive Device None,Gait Belt,Front Wheeled Walker Comments Mobility Comments Pt found resting in chair, agreeable to PT sesion. Pt performed sit to stand x1 SBA w/FWW, sit to stand x1 no AD SBA, cues for BUE support on arms of chair. Pt ambulated ~ 200' in hallway SBA with FWW with step thru gait, no LOB or buckling of knees. He performed stairs x6 with BUE support, x1LOB able to use handrails for balance. He performed stadning balance testing with head turns and eyes close WBOS, no LOB but some swaying. NBOS balance with head turns and eyes closed x2 LOB laterally. Pt was left in bedside chair with nursing staff in room. Gait Assessment Gait Gait Assistance Required: Standby Assistance Distance (Feet) 200 Assistive Devices Assistive Device Gait Belt,Front Wheeled Walker Gait Deviations General Gait Pattern Decreased Stride Length, Decreased Feet Clearance, Festinating Factors Limiting Gait Function Factors Limiting Gait Function Decreased Strength,Poor Balance Comments Gait Comments Endurance improved, some swaying. Stair Climbing Assessment Evaluation Level of Assist On Stairs Standby Assistance Devices Stair Climbing Assistive Devices Left Railing,Right Railing Technique/Endurance Stair Climbing Direction Ascend and Descend Number of Steps Climbed 6 Comments Stair Climbing Comments See mobility comments. PT-Balance Assessment Sitting Balance and Reactions Static Sitting Balance Ability Good Dynamic Sitting Balance Ability Fair Standing Balance and Reactions Static Standing Balance Ability Good Dynamic Standing Balance Ability Fair Device Used FWW Comments Other Balance Tests/Deviations/Treatment X1 LOB with stairs, used : handrails to keep balance. X2 LOB during NBOS baalance testing with head turns and eyes closed. M5 PT-IP Objective Assessments Start: 06/03/22 11:18 Freq: NEEDED Status: Active Protocol: Document 06/03/22 11:18 ES (Rec: 06/03/22 11:34 ES [id number]) Orientation Orientation/Cognition Level of Alertness Alert Orientation Name,Age,Birthday,Month,Year, Place,Situation Language Function Ability No Deficits Noted Safety Awareness Decreased Safety Awareness Memory Description No Deficits Noted Gross Range of Motion Upper Extremity ROM Assessment Within Functional Limits Lower Extremity ROM Assessment Within Functional Limits Impairments Stiffness throughout due to PD Strength Upper Extremity Strength Assessment Within Functional Limits Lower Extremity Strength Assessment Within Functional Limits Comments Strength Comments Decreased functional strength/ repetitive strength though tested 5/5 with MMT. Sensation Assessment Sensation Gross Sensation WNL M6 PT-IP Treatment Start: 06/03/22 11:18 Freq: NEEDED Status: Active Protocol: Document 06/04/22 12:08 TS (Rec: 06/04/22 12:25 TS [id number]) Physical Therapy Treatment Education Education Provided Safety M7 PT-IP Assessment and Plan Start: 06/03/22 11:18 Freq: NEEDED Status: Active Protocol: Document 06/04/22 12:08 TS (Rec: 06/04/22 12:25 TS [id number]) PT Summary Assessment and Plan Potential Rehabilitation Potential Good Status of Condition at Evaluation Evolving Summary Impairments Strength,Balance,Bed Mobility, Transfers,Gait,Activity Tolerance Progress Towards Goals Slow Progress due to Activity Tolerance Assessment Summary Pt progressed ambulation this session to 200' SBA in FWW, no LOB but pt does have a narrow base gait with some swaying. He performed stairs x6 SBA with BUE handrail assist, x1 LOB, recovered with use of handrails. Performed balance testing with head turns/eyes closed wide base of support, no LOB. Narrow base of support with head turns and eyes closed x2 LOB. PT recommends SNF vs 30/08 available with HHPT to improve balance and activity tolerance. Goals Bed Mobility Goal Standby Assistance Transfer Goal Standby Assistance,Four Wheeled Walker Gait Goal Standby Assistance,Four Wheel Walker Gait Distance 100 Other Goals Patient will be able to ascend /descend 3 stairs without railing with min A. Days to Meet Goals 3 Frequency of Treatment Frequency Of Treatment Twice a Day Treatment Plan Physical Therapy Treatment Plan Bed Mobility Training,Transfer Training,Gait Training, Therapeutic Exercise,Balance Retraining,Discharge Planning, Neuromuscular Re-ed,Manual Therapy Other Recommendations and Next Treatment Progress transfers, gait, Focus stair training when appropriate. Recommendations To Nursing Amount of Assist Needed 1 Person Assist Discharge Recommendations PT Discharge Recommendations Home vs SNF Equipment Needed for Home Before Possibly FWW, has 4WW Discharge Transportation Needs at Discharge Private Vehicle,Wheelchair/ Cabulance
[2022-06-04] MEDS: INSULIN LISPRO 100 UNIT/ML 3ML VIAL SUBCUT (12:08)
--- NOTE | 2022-06-04 12:23 | P.DS_ITS ---
History of Present Illness History of Present Illness Date Patient Seen: 06/01/22 Time Patient Seen: 20:30 Chief complaint: blood in stool Narrative: Mr. Mayen is a 72M with PMH Parkinsons, CHFrEF, prostate cancer, Type 2 DM on insulin, GERD, HTN who presents to the hospital with bloody stools. History is obtained from his who is at bedside. The patient is currently confused and lethargic. He apparently was in his normal state of health when today he had bloody diarrhea. He has no abdominal pain. No vomiting, or hematemesis. He has urinary retention and needs to self cath due to this. He has a history of recurrent UTIs. He apparently prior to arriving had no chest pain, shortness of breath, abdominal pain, dysuria. In the ED workup was done, vitals notable for tmax 101.8, heart rate in 100s, respiratory rate in 20s-30s, blood pressure 120s-130s/60s-80s, sats initially 98% on room air. Labs reviewed by me and notable for WBC 15.2, hgb 10.8, plts 285. Na 135, creatinine 1.22. INR 1.3. Lactate 3.7->1.8. Procal 0.36. BNP 637. UA positive for nitrates, leuk esterase, WBCs, and bacteria. Respiratory panel negative. He was diagnosed with sepsis from urinary source and started on IV fluids. After fluids started he developed respiratory failure which required stopping the fluids. BIPAP was trialed but he was agitated and could not tolerate. He was placed on heated high flow. He was given IV ativan. He was ordered for lasix and blood pressure dropped to the 80s. He had a IJ CVL placed, but his blood pressure improved and pressors were not started. He was ordered for antibiotics. Chest xray reviewed by me and notable for fluid overload. He was admitted for further treatment. Discharge Providers Provider Date of admission: 06/01/22 20:04 Discharge Date: 06/04/22 Primary care physician: Ravindra Goldsmith DO Consults: 06/02/22 17:17 Consult to Physical Therapy Evaluate & Treat Comment: Physician Instructions: Evaluate and Treat Discharge provider: Ricardo Skaggs DO Summary Hospital Course Discharge Diagnosis: 1. Sepsis secondary to UTI from self-catheterization, with acute encephalopathy now resolved -presented with fevers, leukocytosis, tachypnea -UA positive for wbcs, bacteria, nitrates consistent with UTI -organ dysfunction with encephalopathy -chest xray more consistent with fluid overload and less likely pneumonia -cefepime downgraded to rocephin 1g daily, discharged on po cipro 500mg BID x5 days -stopped vanc due to neg MRSA screen -blood culture NG at 24 hours, urine culture growing E. coli -careful with fluids as developed respiratory failure with fluid resuscitation -initially presented with elevated lactate which resolved with antibiotics and fluids -can remove central line 2. Acute hypoxemic respiratory failure, resolved -probable secondary to fluid resuscitation in setting of CHF history -required high flow oxygen, then weaned off O2 on 06/02 -hold off on further IV fluids -already on antibiotics as above, but doubt pneumonia -patient notes extensive smoking history, very wheezy on exam -start prednisone 40mg x5 days -did not tolerate BIPAP on admission -now weaned off O2 3. Acute hematochezia -had episode of bleeding prior to arrival -no further bleeding in the hospital as of yet, Hgb stable -will need outpatient colonoscopy 4. Parkinsons disease -continue home medications selegiline, sinemet, entacapone -PT eval rec SNF 5. CHF with hypertension -continue losartan -now -2L on I/O's since admission 6. BPH -continue finasteride -continue flomax 7. Type 2 DM on insulin -for now ordered for insulin 50U BID, lower than baseline given not eating and sepsis -hold oral anti-hyperglycemics -increase insulin to home dose as he improves -ordered insulin sliding scal Hospital Course: Admitted for sepsis from UTI likely from self-catheterization. In the ED received IVF boluses which caused resp distress and he required HFNC. This was weaned off by the next day. Blood cultures were negative and urine cultures grew E. coli sensitive to cipro. Received 2 days of IV rocephin and will discharge on 5 more days of po cipro. PT felt patient too weak to return home and SNF recommended. Time Spent with Patient Time spent: Greater than 30 minutes Exam Vital Signs (past 8 hours): - 06/04/22 09:05 Pulse Rate 62 Blood Pressure 132/62 Fraction of Inspired Oxygen 21 SaO2/FiO2 Ratio 461 Oxygen Delivery Method Room Air Oxygen Flow Rate 0 Narrative Exam Narrative: GEN: NAD HEENT: moist mucous membranes, PERRL NECK: trachea midline, no JVD PULM: clear breath sounds CV: regular rate and rhythm, no murmurs ABD: soft, nontender, nondistended, no organomegaly EXT: warm and well perfused with no edema NEURO: no focal deficits noted Objective Labs 06/04/22 05:59 06/04/22 05:59 Labs: Laboratory Results - last 24 hr 06/04/22 06/04/22 05:59 05:59 WBC 8.6 RBC 3.86 L Hgb 10.6 L Hct 32.1 L MCV 83.0 MCH 27.4 MCHC 33.0 RDW 16.4 H Plt Count 317 Neut % (Auto) 72.3 Lymph % (Auto) 18.5 L [place] % (Auto) 7.6 Eos % (Auto) 1.0 L Baso % (Auto) 0.6 Neut # (Auto) 6200 Lymph # (Auto) 1600 [place] # (Auto) 700 Eos # (Auto) 100 Baso # (Auto) 100 Sodium 137 Potassium 3.7 Chloride 107 Carbon Dioxide 26 BUN 26 H Creatinine 1.13 Estimated GFR > 60 BUN/Creatinine Ratio 23.0 H Glucose 123 H Calcium 8.8 PFSH Medical History Acne Anemia Ankle pain Benign prostatic hyperplasia Chicken pox Congestive heart failure GERD (gastroesophageal reflux disease) History of prostate cancer Hypertension Measles Parkinson's disease Prostate cancer (~2010) Shoulder pain Type 2 diabetes mellitus Surgical History Anesthesia History of knee surgery Kidney stones Family History Father Stroke Mother Cancer Sister Hypertension Social History household members: spouse, family and children Smoking Status: Former smoker alcohol intake: never Discharge Plan Discharge Plan Patient Disposition: Xfer Inpatient Rehab Discharge orders & Medications Discharge Orders: Discharge (Order); Ordered 06/04/22 Ordered By: Ricardo Skaggs Prescriptions: New ciprofloxacin HCl [Cipro] 500 mg tablet 500 mg PO BID 5 Days Qty: 10 0RF Continued (DME) pen needle, diabetic [BD Reshma 2nd Gen Pen Needle] 32 gauge x /32 needle See Rx Instructions .ROUTE .MEDSUPPLY Qty: 100 3RF Rx Instructions: As directed finasteride 1 mg tablet 1 mg PO DAILY Qty: 90 1RF carbidopa-levodopa 25-100 mg tablet extended release 1 tab PO BID Patient Comments: TAKE ONE TABLET BY MOUTH EVERY MORNING AND TAKE ONE TABLET BY MOUTH BEFORE BEDTIME (DME) lancets [Micro Thin Lancets] 33 gauge misc See Rx Instructions .ROUTE .MEDSUPPLY Qty: 100 Patient Comments: USE TO TEST BLOOD SUGAR THREE TIMES A DAY Rx Instructions: As directed selegiline HCl 5 mg tablet 5 mg PO BID Rx Instructions: administer with breakfast and lunch insulin glargine [Lantus Solostar U-100 Insulin] 100 unit/mL (3 mL) insulin pen See Rx Instructions .ROUTE .COMPLEX Qty: 15 10RF Rx Instructions: Inject 80 units am and 75 units in pm under the skin two times a day. gabapentin 100 mg capsule 100 mg PO TID potassium citrate 10 mEq (1,080 mg) tablet extended release 10 meq PO BID carbidopa-levodopa 25-100 mg Tablet 2 tab PO 5XD metformin 850 mg tablet 850 mg PO TID Patient Comments: TAKE ONE TABLET BY MOUTH THREE TIMES A DAY entacapone 200 mg tablet 200 mg PO 5XD omeprazole 20 mg capsule,delayed release(DR/EC) 20 mg PO DAILY losartan 50 mg tablet 50 mg PO DAILY tamsulosin 0.4 mg capsule 0.8 mg PO DAILY atorvastatin 10 mg tablet 10 mg PO DAILY Patient Comments: TAKE ONE TABLET BY MOUTH ONE TIME DAILY timolol maleate 0.5 % drops 1 drp DAILY latanoprost 0.005 % drops 1 drp DAILY Follow up/Referrals: Ravindra Goldsmith DO [Primary Care Provider] - 2 Weeks Diet/Activity/Treatments Diet: Regular [facility] Rehab type: Physical therapy and Occupational therapy Discharge Data Primary Care Provider: Ravindra Goldsmith Quality VTE Deep Vein Thrombosis/Pulmonary Embolism Present on Admission: No
[2022-06-04 12:30] LABS: COVID19 -Nasal RAPID Negative (Negative)
[2022-06-04] MEDS: CIPROFLOXACIN 250 MG TABLET 500 MG PO (13:42)
--- NOTE | 2022-06-05 13:43 | CM.DPNOTE ---
DC NOte Late Entry Patient discharged to [facility] H+R 06.05.22, patient and spouse remained agreeable to this plan Coordinated this discharge by lionel completed and signed DC ppk med list and PASRR to admissions at [facility] Plan: Discharge to [facility] H+R via w/c 06.04.22 RANJITH
== END 2022-06-04 14:55 | DRG 698 ==
LOC: ED 20:03 → AC 20:04 → ICU 20:31 → AC 06-03 20:24
PROVIDERS: Emergency Medicine; Student in an Organized Health Care Education/Training Program; Admitting Provider Internal Medicine; Emergency Provider Student in an Organized Health Care Education/Training Program; PCP Family Medicine; Referring Provider Student in an Organized Health Care Education/Training Program; Visit Provider Internal Medicine
DX: T83.511A Infection and inflammatory reaction due to indwelling urethral catheter, initial encounter (principal); A41.9 Sepsis, unspecified organism; J96.01 Acute respiratory failure with hypoxia; G93.41 Metabolic encephalopathy; I50.22 Chronic systolic (congestive) heart failure; K92.1 Melena; N39.0 Urinary tract infection, site not specified; I11.0 Hypertensive heart disease with heart failure; G20 Parkinson's disease; N40.0 Benign prostatic hyperplasia without lower urinary tract symptoms; E11.9 Type 2 diabetes mellitus without complications; B96.20 Unspecified Escherichia coli [E. coli] as the cause of diseases classified elsewhere; K21.9 Gastro-esophageal reflux disease without esophagitis; Z20.822 Contact with and (suspected) exposure to COVID-19; Z87.891 Personal history of nicotine dependence; Z79.84 Long term (current) use of oral hypoglycemic drugs; Z79.4 Long term (current) use of insulin
CPT/HCPCS: 36415; 36600; 51798; 71045; 74176; 80048; 80053; 81001; 82550; 82805; 82962; 83605; 83735; 83880; 84100; 84145; 84484; 85025; 85610; 85730; 86850; 86900; 86901; 87040; 87077; 87086; 87186; 87633; 87635; 87797; 93010; 94640; 94660; 94762; 96365; 96366; 96367; 96368; 96375; 96376; 97116; 97162; 97530; 99285; 99291; C9803; C9113; J0171; J0692; J0696; J1815; J1940; J2060

== ENCOUNTER → 2022-06-22 17:34 | Outpatient (ROUT) | payer MEDICARE, OTHER, SELFPAY ==
[2022-06-01 15:36] VITALS: PULSE 112; RESP 40; O2SAT 95
[2022-06-01 20:24] VITALS: BMI 37.4
[2022-06-22 18:13] LABS: Appearance Urine UA CLOUDY; Bilirubin Urine UA NEGATIVE (NEGATIVE); Color Urine UA YELLOW; Glucose Urine UA NEGATIVE (Negative); Ketones Urine UA TRACE (NEGATIVE); Leukocyte Esterase Urine UA 3+ (NEGATIVE); Nitrite Urine UA POSITIVE (Negative); Occult Blood Urine UA TRACE-INTACT (Negative); Protein Urine UA 1+ (Negative); Urobilinogen Urine UA 0.2 E.U./dL (0.2); pH Urine UA 6.5 (4.5-8.0)
[2022-06-22 19:12] LABS: Bacteria Urine Few (2-10); RBC Urine None Seen (0-5/HPF); Squamous Epithelial Cell Urine None Seen (0-5/HPF); WBC Urine >100/HPF (0-5/HPF)
[2022-06-22 19:13] LABS: Culture Indicated Urine Specimen Cultured
== END ==
PROVIDERS: PCP Family Medicine; Visit Provider Family Medicine
DX: N39.0 Urinary tract infection, site not specified (principal)
CPT/HCPCS: 81001; 87077; 87086; 87186

== ENCOUNTER → 2022-07-10 09:58 | Outpatient (CLI) | payer MEDICARE, OTHER, SELFPAY ==
[2022-06-01 15:36] VITALS: PULSE 112; RESP 40; O2SAT 95
[2022-06-01 20:24] VITALS: BMI 37.4
[2022-07-10 10:38] LABS: Bilirubin Urine UA NEGATIVE (NEGATIVE); Color Urine UA YELLOW; Glucose Urine UA NEGATIVE (Negative); Ketones Urine UA NEGATIVE (NEGATIVE); Leukocyte Esterase Urine UA 1+ (NEGATIVE); Nitrite Urine UA NEGATIVE (Negative); Occult Blood Urine UA NEGATIVE (Negative); Protein Urine UA TRACE (Negative)
[2022-07-10 10:55] LABS: Appearance Urine UA Slightly Cloudy
[2022-07-10 10:59] LABS: Amorphous Sediment Urine 1+; Bacteria Urine Many (>30); Culture Indicated Urine Specimen Cultured; RBC Urine None Seen (0-5/HPF); Squamous Epithelial Cell Urine 0-1 /HPF (0-5/HPF); WBC Urine 30-100/HPF (0-5/HPF)
[2022-07-10 11:10] LABS: HEMOLYSIS < 15 (0-50); Iron 63 ug/dL (49-181)
[2022-07-10 11:17] LABS: Transferrin 218 mg/dL (206-381)
[2022-07-10 11:23] LABS: Percent Iron Saturation 20 % (20-50); Total Iron Binding Capacity 310 ug/dL (261-462)
[2022-07-10 11:58] LABS: Vitamin B12 237 pg/mL (239-931)
== END ==
PROVIDERS: PCP Family Medicine; Referring Provider Family Medicine; Visit Provider Family Medicine
DX: Z85.46 Personal history of malignant neoplasm of prostate (principal); D64.9 Anemia, unspecified
CPT/HCPCS: 36415; 81001; 82607; 83540; 83550; 87077; 87086; 87185; 87186

== ENCOUNTER → 2022-07-15 08:46 | Outpatient (CLI) | payer MEDICARE, OTHER, SELFPAY ==
[2022-06-01 15:36] VITALS: PULSE 112; RESP 40; O2SAT 95
[2022-06-01 20:24] VITALS: BMI 37.4
[2022-07-15 09:46] LABS: Add Manual Diff / Slide Review NO; Basophils Absolute Auto 100 /uL (0-100); Basophils Percent Auto 0.8 % (0-2); Eosinophils Absolute Auto 200 /uL (0-450); Eosinophils Percent Auto 2.6 % (2-4); Hematocrit 36.8 % (41-53); Lymphocytes Absolute Auto 1400 /uL (1100-4500); Mean Corpuscular HGB Conc 32.6 % (30-36); Mean Corpuscular Hemoglobin 27.6 PG (26-34); Mean Corpuscular Volume 84.6 fL (80-100); Monocytes Absolute Auto 600 /uL (0-900); Monocytes Percent Auto 8.2 % (3-14); Neutrophils Absolute Auto 5000 /uL (1500-7000); Neutrophils Percent Auto 69.4 % (50-75); Platelet Count 234 X10^3/uL (150-400); Red Blood Cell Count 4.35 X10^6/uL (4.5-5.9); Red Cell Distribution Width 18.1 % (11.6-14.8); White Blood Cell Count 7.2 X10^3/uL (4.5-11.0)
[2022-07-15 10:37] LABS: Alanine Aminotransferase 6 IU/L (<50); Albumin 3.7 g/dL (3.5-5.0); Albumin Globulin Ratio 1.2 (1.0-2.8); Alkaline Phosphatase 96 U/L (38-126); Aspartate Aminotransferase 22 IU/L (17-59); BUN Creatinine Ratio 16.8 (6-22); Bilirubin Total 0.6 mg/dL (0.2-1.3); Blood Urea Nitrogen 16 mg/dL (9-20); Calcium 9.3 mg/dL (8.4-10.2); Carbon Dioxide 27 mmol/L (22-32); Chloride 108 mmol/L (98-107); Cholesterol 149 mg/dL (140-199); Estimated Glomerular Filt Rate > 60 mL/min (>60); Glucose 115 mg/dL (80-110); HDL Cholesterol 37 mg/dL (40-60); HEMOLYSIS < 15 (0-50); LDL Cholesterol Calculated 92 mg/dL (<100); Potassium 4.8 mmol/L (3.4-5.1); Sodium 140 mmol/L (137-145); Total Protein 6.7 g/dL (6.3-8.2); Triglycerides 101 mg/dL (35-150)
[2022-07-15 11:07] LABS: TSH w/ Reflex to FT4 1.63 uIU/mL (0.47-4.68)
[2022-07-15 11:26] LABS: Prostate Specific Antigen Scrn < 0.064 ng/mL (0.1-4.0)
[2022-07-16 08:44] LABS: x Labcorp Estim. Avg Glu (eAG) 151 mg/dL (.); x Labcorp Hemoglobin A1c 6.9 % (4.8-5.6)
== END ==
PROVIDERS: PCP Family Medicine; Referring Provider Family Medicine; Visit Provider Family Medicine
DX: D64.9 Anemia, unspecified (principal); Z12.5 Encounter for screening for malignant neoplasm of prostate; E11.9 Type 2 diabetes mellitus without complications; I10 Essential (primary) hypertension; Z85.46 Personal history of malignant neoplasm of prostate
CPT/HCPCS: 36415; 80053; 80061; 83036; 84443; 85025; G0103

== ENCOUNTER → 2022-08-04 15:35 | Outpatient (CLI) | payer MEDICARE, OTHER, SELFPAY ==
[2022-06-01 15:36] VITALS: PULSE 112; RESP 40; O2SAT 95
[2022-06-01 20:24] VITALS: BMI 37.4
[2022-08-04 17:06] LABS: Appearance Urine UA SL CLOUDY; Bilirubin Urine UA NEGATIVE (NEGATIVE); Color Urine UA YELLOW; Glucose Urine UA 2+ g/dL (Negative); Ketones Urine UA NEGATIVE (NEGATIVE); Leukocyte Esterase Urine UA 2+ (NEGATIVE); Nitrite Urine UA NEGATIVE (Negative); Occult Blood Urine UA TRACE-INTACT (Negative); Protein Urine UA NEGATIVE (Negative); Urobilinogen Urine UA 0.2 E.U./dL (0.2)
[2022-08-04 17:33] LABS: Bacteria Urine None Seen; Culture Indicated Urine Specimen Cultured; RBC Urine 0-1/HPF (0-5/HPF); Squamous Epithelial Cell Urine None Seen (0-5/HPF); WBC Urine 10-30/HPF (0-5/HPF)
== END ==
PROVIDERS: PCP Family Medicine; Referring Provider Internal Medicine; Visit Provider Internal Medicine
DX: N39.0 Urinary tract infection, site not specified (principal); R30.0 Dysuria; Z85.46 Personal history of malignant neoplasm of prostate
CPT/HCPCS: 81001; 87077; 87086; 87186

== ENCOUNTER → 2022-08-17 12:45 | Outpatient (CLI) | payer MEDICARE, OTHER, SELFPAY ==
[2022-06-01 15:36] VITALS: PULSE 112; RESP 40; O2SAT 95
[2022-06-01 20:24] VITALS: BMI 37.4
== END ==
PROVIDERS: PCP Family Medicine; Visit Provider Specialist
DX: N39.0 Urinary tract infection, site not specified (principal); N20.0 Calculus of kidney; R33.9 Retention of urine, unspecified; Z87.442 Personal history of urinary calculi; Z85.46 Personal history of malignant neoplasm of prostate
CPT/HCPCS: 51798; 81002; 87077; 87086; 87186; 99215

== ENCOUNTER → 2022-08-25 13:59 | Outpatient (CLI) | payer MEDICARE, OTHER, SELFPAY ==
[2022-06-01 15:36] VITALS: PULSE 112; RESP 40; O2SAT 95
[2022-06-01 20:24] VITALS: BMI 37.4
--- NOTE | 2022-08-25 14:01 | DI.CT.S_ITS ---
PROCEDURE: CT KIDNEY URETER BLADDER (KUB) INDICATIONS: kidney stones TECHNIQUE: Axial sections were acquired from the lung bases to the pubic symphysis. Coronal and sagittal reformats were performed. For radiation dose reduction, the following was used: automated exposure control, adjustment of mA and/or kV according to patient size. COMPARISON: [facility], CT, CT ABDOMEN PELVIS WO CON, 06/01/2022, 13:59. FINDINGS: Image quality: Patient motion artifact Lung bases: Unremarkable. Heart: No significant findings. URINARY: Right Kidney: No stones or hydronephrosis. Right Ureter: No hydroureter. Left Kidney: Tiny nonobstructing lower pole stones. No hydronephrosis. Left Ureter: No hydroureter. Bladder: Diffuse bladder wall thickening, slightly improved compared to the previous study. Prostate implant seeds. ABDOMEN: Liver: Unremarkable. Gallbladder: Unremarkable. Biliary ducts: Unremarkable. Pancreas: Unremarkable. Spleen: Unremarkable. Adrenal Glands: Unremarkable. Stomach and Bowel: Stomach, small bowel loops, and colon are unremarkable. Peritoneum: No abnormal intraperitoneal fluid. No free air. Ventral Wall: No hernia. Abdominal Nodes: No enlarged retroperitoneal or mesenteric lymph nodes. Vessels: Aorta and inferior vena cava are normal in size. PELVIS: Pelvic Organs: Unremarkable. Pelvic Nodes: Unremarkable. Lumbar degenerative change. No lytic or blastic bony lesions. Old compression fractures of T12 and L2. Question acute or subacute L3 compression. Miscellaneous: No inguinal hernias are seen. Bones: Unremarkable. IMPRESSION: 1. There are tiny nonobstructing left lower pole stones. There is no ureteral stone. There is no hydronephrosis. 2. Prostate implant seeds. 3. Slight interval decrease in the degree of bladder wall thickening. 4. Question acute or subacute L3 compression fracture. Comment: If clinically suspect acute pain secondary to compression fracture, consider lumbar spine MRI. However, this may be technically difficult at, as there was significant patient motion artifact on the current study in a patient with Parkinson's disease. Dictated by: Abhi Mccormick M.D. on 08/25/2022 at 16:49 Approved by: bAhi Mccormick M.D. on 08/25/2022 at 16:54
== END ==
PROVIDERS: PCP Family Medicine; Referring Provider Specialist; Visit Provider Specialist
DX: C61 Malignant neoplasm of prostate (principal); N20.0 Calculus of kidney
CPT/HCPCS: 36415; 74176; 84153

== ENCOUNTER → 2022-08-25 14:22 | Outpatient (CLI) | payer MEDICARE, OTHER, SELFPAY ==
[2022-06-01 15:36] VITALS: PULSE 112; RESP 40; O2SAT 95
[2022-06-01 20:24] VITALS: BMI 37.4
[2022-08-25 17:39] LABS: Prostate Specific Antigen < 0.064 ng/mL (0.10-4.00)
== END ==
PROVIDERS: PCP Family Medicine; Referring Provider Specialist; Visit Provider Specialist
DX: C61 Malignant neoplasm of prostate (principal)
CPT/HCPCS: 36415; 84153

== ENCOUNTER → 2022-09-07 14:10 | Outpatient (CLI) | payer MEDICARE, OTHER, SELFPAY ==
[2022-06-01 15:36] VITALS: PULSE 112; RESP 40; O2SAT 95
[2022-06-01 20:24] VITALS: BMI 37.4
== END ==
PROVIDERS: PCP Family Medicine; Visit Provider Specialist
DX: N39.0 Urinary tract infection, site not specified (principal); N20.0 Calculus of kidney; R33.9 Retention of urine, unspecified; Z85.46 Personal history of malignant neoplasm of prostate
CPT/HCPCS: 52000; 76872; 87077; 87086; 87186; 99215

== ENCOUNTER → 2022-10-21 16:49 | Outpatient (CLI) | payer MEDICARE, OTHER, SELFPAY ==
[2022-06-01 15:36] VITALS: PULSE 112; RESP 40; O2SAT 95
[2022-06-01 20:24] VITALS: BMI 37.4
[2022-10-21 19:20] LABS: Appearance Urine UA CLEAR; Bilirubin Urine UA NEGATIVE (NEGATIVE); Color Urine UA YELLOW; Glucose Urine UA 1+ g/dL (Negative); Ketones Urine UA NEGATIVE (NEGATIVE); Leukocyte Esterase Urine UA 1+ (NEGATIVE); Nitrite Urine UA NEGATIVE (Negative); Occult Blood Urine UA NEGATIVE (Negative); Protein Urine UA NEGATIVE (Negative); Urobilinogen Urine UA 0.2 E.U./dL (0.2); pH Urine UA 6.5 (4.5-8.0)
[2022-10-21 19:25] LABS: Creatinine Urine Random 30.4 mg/dL
[2022-10-21 19:31] LABS: Microalbumin Urine Random 8.3 mg/dL (0-1.6)
[2022-10-21 20:00] LABS: Bacteria Urine Many (>30); Culture Indicated Urine Specimen Cultured; RBC Urine 0-1/HPF (0-5/HPF); Squamous Epithelial Cell Urine None Seen (0-5/HPF); WBC Urine 1-5/HPF (0-5/HPF)
== END ==
PROVIDERS: PCP Family Medicine; Visit Provider Family Medicine
DX: E11.9 Type 2 diabetes mellitus without complications (principal); N39.0 Urinary tract infection, site not specified
CPT/HCPCS: 81001; 82043; 82570; 87077; 87086; 87186

== ENCOUNTER → 2022-10-29 14:13 | Outpatient (CLI) | payer MEDICARE, OTHER, SELFPAY ==
[2022-06-01 15:36] VITALS: PULSE 112; RESP 40; O2SAT 95
[2022-06-01 20:24] VITALS: BMI 37.4
[2022-10-29 15:15] LABS: Hemoglobin A1C% w Est Avg Glu 6.6 % (4.0-6.0)
[2022-10-29 15:28] LABS: Glucose 161 mg/dL (80-110)
[2022-10-29 16:16] LABS: Vitamin B12 238 pg/mL (239-931)
[2022-11-01 13:24] LABS: Methylmalonic Acid,Serum 379 nmol/L (0-378)
== END ==
PROVIDERS: PCP Family Medicine; Referring Provider Specialist; Visit Provider Specialist
DX: E11.59 Type 2 diabetes mellitus with other circulatory complications (principal); Z79.4 Long term (current) use of insulin; G31.84 Mild cognitive impairment of uncertain or unknown etiology; D64.9 Anemia, unspecified
CPT/HCPCS: 36415; 82607; 82947; 83036; 83921

== ENCOUNTER → 2022-12-20 10:12 | Outpatient (CLI) | payer MEDICARE, OTHER, SELFPAY ==
[2022-06-01 15:36] VITALS: PULSE 112; RESP 40; O2SAT 95
[2022-06-01 20:24] VITALS: BMI 37.4
[2022-12-20 11:09] LABS: Add Manual Diff / Slide Review NO; Basophils Absolute Auto 100 /uL (0-100); Basophils Percent Auto 0.7 % (0-2); Eosinophils Absolute Auto 100 /uL (0-450); Eosinophils Percent Auto 0.6 % (2-4); Hematocrit 34.5 % (41-53); Hemoglobin 11.6 g/dL (13.5-17.5); Lymphocytes Absolute Auto 1100 /uL (1100-4500); Lymphocytes Percent Auto 12.1 % (25-40); Mean Corpuscular HGB Conc 33.7 % (30-36); Mean Corpuscular Hemoglobin 27.9 PG (26-34); Mean Corpuscular Volume 82.9 fL (80-100); Monocytes Absolute Auto 800 /uL (0-900); Monocytes Percent Auto 8.6 % (3-14); Neutrophils Absolute Auto 7200 /uL (1500-7000); Platelet Count 245 X10^3/uL (150-400); Red Blood Cell Count 4.16 X10^6/uL (4.5-5.9); White Blood Cell Count 9.2 X10^3/uL (4.5-11.0)
[2022-12-20 11:21] LABS: Hemoglobin A1C% w Est Avg Glu 7.6 % (4.0-6.0)
[2022-12-20 11:22] LABS: HEMOLYSIS < 15 (0-50); Iron 22 ug/dL (49-181)
[2022-12-20 11:24] LABS: Alanine Aminotransferase 9 IU/L (<50); Albumin Globulin Ratio 1.1 (1.0-2.8); Alkaline Phosphatase 72 U/L (38-126); Aspartate Aminotransferase 18 IU/L (17-59); BUN Creatinine Ratio 28.9 (6-22); Bilirubin Total 0.7 mg/dL (0.2-1.3); Blood Urea Nitrogen 33 mg/dL (9-20); Carbon Dioxide 23 mmol/L (22-32); Chloride 105 mmol/L (98-107); Estimated Glomerular Filt Rate > 60 mL/min (>60); Globulin 3.5 g/dL (1.7-4.1); Glucose 118 mg/dL (80-110); HEMOLYSIS < 15 (0-50); Potassium 4.1 mmol/L (3.4-5.1); Sodium 137 mmol/L (137-145); Total Protein 7.5 g/dL (6.3-8.2)
[2022-12-20 11:35] LABS: Percent Iron Saturation 8 % (20-50); Total Iron Binding Capacity 271 ug/dL (261-462); Transferrin 206 mg/dL (206-381)
== END ==
PROVIDERS: PCP Family Medicine; Referring Provider Family Medicine; Visit Provider Family Medicine
DX: E78.5 Hyperlipidemia, unspecified (principal); E11.9 Type 2 diabetes mellitus without complications; I50.9 Heart failure, unspecified; D64.9 Anemia, unspecified
CPT/HCPCS: 36415; 80053; 83036; 83540; 83550; 85025

== ENCOUNTER → 2023-01-20 12:12 | Outpatient (CLI) | payer MEDICARE, OTHER, SELFPAY ==
[2022-06-01 15:36] VITALS: PULSE 112; RESP 40; O2SAT 95
[2022-06-01 20:24] VITALS: BMI 37.4
[2022-12-27 11:39] VITALS: PULSE 112; RESP 40; O2SAT 95; BMI 37.4
--- NOTE | 2023-01-20 | DI.ECHO.S_ITS ---
[facility] +---------+ : : [address] : [place] : : : : [id number] : : : : Phone: [phone]+ Echocardiogram Report + + :Name: SHASHANK MENDEZ Study Date: 01/20/2023 Height: 66 in : :[facility] ReadingLocation: Weight: 220 lb : : Gender: Male BSA: 2.1 m2 : :: 1950 Age: 72 yrs BP: 156/83 mmHg: :Reason For Study: HEART FAILURE : :Ordering Physician: NEO, : :GLORIA Performed By: Jennifer Mathew : :Referring: GLORIA HUGGINS : + + Interpretation Summary 1) Mildly increased left ventricular thickness (concentric) with normal size, normal wall motion, and normal systolic function (EF 65-70%). 2) Normal right ventricular size and function. 3) No significant valvular abnormalities. 4) The aortic root is borderline dilated at 4.1cm. 5) No prior Echo available for comparison. Procedure: A two-dimensional transthoracic echocardiogram with color flow and Doppler was performed. The study quality was technically difficult. There is no prior echocardiogram noted for this patient. A contrast injection of Definity was performed to improve assessment of LV function. The patient was in sinus rhythm with heart rates between 87-99 bpm during the exam. Left Ventricle: The left ventricle is normal in size. There is mild concentric left ventricular hypertrophy. The ejection fraction is estimated to be 65-70%. Left ventricular systolic function appears normal without focal wall motion abnormalities. Diastolic function could not be accurately assessed due to contradictory data. Right Ventricle: The right ventricle grossly appears normal in size with probable normal systolic function. Atria: The left atrial size is normal. Right atrial size is normal. There is no Doppler evidence for an interatrial shunt. Mitral Valve: There is a flat closure plane of the the mitral valve leaflets. There is trace mitral regurgitation. Aortic Valve: The aortic valve is trileaflet. The aortic valve opens well. There is no aortic valve stenosis. No aortic regurgitation is present. Tricuspid Valve: The tricuspid valve is normal in structure and function. There is a trace or physiologic amount of tricuspid regurgitation. Pulmonary artery pressures cannot be estimated because of the lack of a measurable TR jet velocity. Pulmonic Valve: The pulmonic valve is not well seen, but is grossly normal. There is a trace or physiologic amount of pulmonic regurgitation. Great Vessels: The aortic root is borderline dilated. The dimensions of the ascending aorta are normal. The inferior vena cava was not visualized. Pericardium/ Pleura There is no pericardial effusion. There is no pleural effusion. MMode/2D Measurements & Calculations LVIDd: 5.1 cm LVOT diam: 2.3 cm LVIDs: 3.6 cm Ao root diam: 4.1 cm FS: 29.4 % asc Aorta Diam: 3.6 cm IVSd: 1.3 cm Ao Arch Diam (Prox Trans): 3.0 cm LVPWd: 1.3 cm LV carrera. diameter/BSA (cm/m^2): 2.4 LV sys. diameter/BSA (cm/m^2): 1.7 LA A2 area: 18.3 cm2 RA long axis: 5.2 cm LA A4 area: 16.2 cm2 RA area: 18.2 cm2 LA length (vol): 5.2 cm RA vol: 54.1 ml LA vol: 48.2 ml RA : 26.0 ml/m2 LA vol index: 23.1 ml/m2 RVD1 (basal): 4.0 cm RVD2 (mid): 3.4 cm TAPSE: 2.0 cm Doppler Measurements & Calculations Ao V2 max: 174.0 cm/sec LVOT Max Aashish: 116.5 cm/sec Ao V2 mean: 125.8 cm/sec LV V1 max P.4 mmHg Ao max P.1 mmHg LV V1 VTI: 21.2 cm Ao mean P.8 mmHg SIL(I,D): 2.8 cm2 Ao V2 VTI: 29.8 cm SIL(V,D): 2.7 cm2 sev ratio: 0.71 SIL indexed to BSA (cm^2/m^2): 1.4 MV E max aashish: 93.2 cm/sec PA V2 max: 133.1 cm/sec MV A max aashish: 100.6 cm/sec PA V2 mean: 98.7 cm/sec MV E/A: 0.93 PA mean P.2 mmHg Med Peak E' Aashish: 5.8 cm/sec PA pr(Accel): 55.0 mmHg E/E' med: 16.0 Lat Peak E' Aashish: 6.7 cm/sec E/E' lat: 14.0 E/e' average: 15.0 MV dec time: 0.17 sec SV(LVOT): 84.3 ml Reading Physician:04:13 PM
== END ==
PROVIDERS: PCP Family Medicine; Referring Provider Internal Medicine Cardiovascular Disease; Visit Provider Internal Medicine Cardiovascular Disease
DX: I50.9 Heart failure, unspecified (principal)
CPT/HCPCS: C8929; Q9957

== ENCOUNTER → 2023-03-07 09:57 | Outpatient (CLI) | payer MEDICARE, OTHER, SELFPAY ==
[2022-12-27 11:39] VITALS: PULSE 112; RESP 40; O2SAT 95; BMI 37.4
[2023-03-07 10:38] LABS: Add Manual Diff / Slide Review NO; Basophils Absolute Auto 100 /uL (0-100); Basophils Percent Auto 0.9 % (0-2); Eosinophils Absolute Auto 100 /uL (0-450); Eosinophils Percent Auto 1.7 % (2-4); Hematocrit 34.9 % (41-53); Hemoglobin 11.6 g/dL (13.5-17.5); Lymphocytes Absolute Auto 1300 /uL (1100-4500); Lymphocytes Percent Auto 15.4 % (25-40); Mean Corpuscular HGB Conc 33.4 % (30-36); Mean Corpuscular Hemoglobin 27.9 PG (26-34); Mean Corpuscular Volume 83.7 fL (80-100); Monocytes Absolute Auto 500 /uL (0-900); Neutrophils Absolute Auto 6400 /uL (1500-7000); Platelet Count 264 X10^3/uL (150-400); Red Blood Cell Count 4.16 X10^6/uL (4.5-5.9); Red Cell Distribution Width 16.3 % (11.6-14.8); White Blood Cell Count 8.4 X10^3/uL (4.5-11.0)
[2023-03-07 11:04] LABS: HEMOLYSIS < 15 (0-50); Iron 59 ug/dL (49-181)
[2023-03-07 11:08] LABS: Alanine Aminotransferase 9 IU/L (<50); Albumin 3.8 g/dL (3.5-5.0); Albumin Globulin Ratio 1.2 (1.0-2.8); Alkaline Phosphatase 74 U/L (38-126); Aspartate Aminotransferase 18 IU/L (17-59); BUN Creatinine Ratio 30.1 (6-22); Bilirubin Total 0.6 mg/dL (0.2-1.3); Blood Urea Nitrogen 28 mg/dL (9-20); Calcium 9.8 mg/dL (8.4-10.2); Carbon Dioxide 26 mmol/L (22-32); Chloride 105 mmol/L (98-107); Estimated Glomerular Filt Rate > 60 mL/min (>60); Globulin 3.2 g/dL (1.7-4.1); Glucose 115 mg/dL (80-110); HEMOLYSIS < 15 (0-50); Potassium 4.5 mmol/L (3.4-5.1); Sodium 137 mmol/L (137-145)
[2023-03-07 11:16] LABS: Percent Iron Saturation 21 % (20-50); Total Iron Binding Capacity 282 ug/dL (261-462); Transferrin 245 mg/dL (206-381)
[2023-03-07 11:51] LABS: Vitamin B12 790 pg/mL (239-931)
== END ==
PROVIDERS: PCP Family Medicine; Referring Provider Family Medicine; Visit Provider Family Medicine
DX: R79.89 Other specified abnormal findings of blood chemistry (principal); I10 Essential (primary) hypertension; D64.9 Anemia, unspecified; E11.9 Type 2 diabetes mellitus without complications
CPT/HCPCS: 36415; 80053; 82607; 83036; 83540; 83550; 85025

== ENCOUNTER → 2023-03-19 12:17 | Outpatient (ROUT) | payer MEDICARE, OTHER, SELFPAY ==
[2022-12-27 11:39] VITALS: PULSE 112; RESP 40; O2SAT 95; BMI 37.4
[2023-03-19 12:44] LABS: Appearance Urine UA CLOUDY; Bilirubin Urine UA NEGATIVE (NEGATIVE); Color Urine UA YELLOW; Glucose Urine UA NEGATIVE (Negative); Ketones Urine UA NEGATIVE (NEGATIVE); Leukocyte Esterase Urine UA 2+ (NEGATIVE); Nitrite Urine UA NEGATIVE (Negative); Occult Blood Urine UA TRACE-INTACT (Negative); Protein Urine UA TRACE (Negative); Specific Gravity Urine UA 1.015 (1.000-1.035)
[2023-03-19 12:57] LABS: Amorphous Sediment Urine 1+; Bacteria Urine Many (>30); Culture Indicated Urine Specimen Cultured; RBC Urine 1-5/HPF (0-5/HPF); Squamous Epithelial Cell Urine None Seen (0-5/HPF); Urine Volume 10mL (spun); WBC Urine 10-30/HPF (0-5/HPF)
== END ==
PROVIDERS: PCP Family Medicine; Visit Provider Nurse Practitioner Family
DX: N39.0 Urinary tract infection, site not specified (principal); R30.0 Dysuria
CPT/HCPCS: 81001; 87077; 87086; 87186

== ENCOUNTER 2023-04-03 07:43 | Inpatient (IN) | payer MEDICARE, OTHER, SELFPAY ==
[2022-12-27 11:39] VITALS: PULSE 112; RESP 40; O2SAT 95; BMI 37.4
[2023-04-03] VITALS (108 sets, daily range): BP systolic 66–216; BP diastolic 45–92; PULSE 74–122; RESP 22–81; TEMP 37.1–38.9; O2SAT 81–100; BMI 36.9; BMI 36.1
--- NOTE | 2023-04-03 07:53 | ED_ITS ---
HPI - General Adult General Chief complaint: Shortness of Breath/Dyspnea Stated complaint: Resp Distress Time Seen by Provider: 04/03/23 07:50 History of Present Illness HPI narrative: 73-year-old gentleman with a history of congestive heart failure prostate cancer with a history of urinary retention recurrent UTIs, hyperlipidemia Parkinson's disease diabetes, hypertension and reflux presents complaining of severe respiratory distress. He notes that his respiratory issues progressed over the last week to the point that his family called 911 this morning. When medics arrived they noted him to be dramatically wheezing with respiratory distress audible from the doorway of the home. They were unable to get initial saturations or blood pressure. Started DuoNeb followed by 2 albuterol nebulizers and transport to the emergency department. On arrival patient is in significant respiratory distress, pale, diaphoretic able speak in only 1-2 word sentences with waxing and waning mental status. Related Data Home Medications Medication Instructions Recorded Confirmed lancets 33 gauge (Micro Thin #100 ea 04/13/22 03/19/23 Lancets) selegiline HCl 5 mg tablet 5 mg PO BID 04/13/22 03/19/23 latanoprost 0.005 % eye drops 1 drp DAILY 06/02/22 03/19/23 timolol maleate 0.5 % eye drops 1 drp DAILY 06/02/22 03/19/23 aspirin 81 mg tablet,delayed 81 mg PO DAILY 10/21/22 03/19/23 release (Adult Low Dose Aspirin) carbidopa ER 48.75 mg-levodopa 195 2 cap PO Q4H 02/18/23 03/19/23 mg capsule,extended release (Rytary) insulin glargine 100 unit/mL (3 60 unit SUBCUT BID 02/18/23 03/19/23 mL) subcutaneous pen (Lantus Solostar U-100 Insulin) Previous Rx's Medication Instructions Recorded Disabled Parking Permit See Rx Instructions .Route 10/21/22 .COMPLEX #1 unit atorvastatin 10 mg tablet 10 mg PO DAILY #90 tabs 12/14/22 metformin 850 mg tablet 850 mg PO TID #240 tabs 01/03/23 losartan 50 mg tablet 50 mg PO DAILY #90 tabs 01/11/23 finasteride 1 mg tablet 1 mg PO DAILY #90 tabs 01/17/23 omeprazole 20 mg capsule,delayed 20 mg PO DAILY #90 caps 01/17/23 release potassium citrate 10 mEq (1,080 10 meq PO BID #180 tabs 01/17/23 mg) tablet,extended release tamsulosin 0.4 mg capsule 0.8 mg (2 x 0.4 mg) PO DAILY #180 01/17/23 caps gabapentin 100 mg capsule 100 mg PO 3XD #270 caps 02/01/23 pen needle, diabetic 32 gauge x #100 ea 03/08/23 (BD Reshma 2nd Gen Pen Needle) Allergies Allergy/AdvReac Type Severity Reaction Status Date / Time No Known Drug Allergies Allergy Verified 03/19/23 11:30 Review of Systems Review of Systems ROS Unobtainable: Unobtainable due to medical condition Patient History Medical History History of urinary retention Hyperlipidemia History of nephrolithiasis Left nephrolithiasis Urinary retention Recurrent UTI History of prostate cancer Acne Shoulder pain Ankle pain Measles Chicken pox Prostate cancer (~2010) Anemia Benign prostatic hyperplasia GERD (gastroesophageal reflux disease) Hypertension Type 2 diabetes mellitus Parkinson's disease Congestive heart failure Surgical History History of prostate biopsy Anesthesia History of knee surgery Kidney stones Family History Father Stroke Hypertension Bacterial UTI Mother Cancer Sister Hypertension Aunt Diabetes mellitus Uncle Kidney stones Social History marital status: number of children: 3 household members: spouse, family and children Smoking Status: Former smoker alcohol intake: never Type(s) of exercise: walking frequency: 1-2 times per week Smoking Status: Former smoker tobacco type: cigarettes alcohol intake frequency: 0-2 drinks per day Substance Use Type: does not use Exam Initial Vital Signs Initial Vital Signs: Vital Signs Pulse Rate 109 H 04/03/23 07:55 Respiratory Rate 54 H 04/03/23 07:55 Pulse Oximetry 90 L 04/03/23 07:55 Oxygen Delivery Method Nasal Cannula 04/03/23 07:55 Oxygen Flow Rate 2 04/03/23 07:55 General: Chronically ill-appearing in severe respiratory distress, pale diaphoretic 1-2 word sentences HEENT: Moist mucous membranes, normal sclera with reactive pupils, Neck: Body habitus makes JVD assessment difficult particularly in light of his significant respiratory distress Respiratory: Lungs with poor air movement throughout scattered wheezes, accessory muscle use, significant tachypnea Cardiac: Sinus tachycardia. No murmurs however distant heart sounds are appreciated Abdomen: Soft, obese but nontender, , no flank pain Skin: Pale, diffuse diaphoresis Neurologic: Globally weak with waxing and waning level of consciousness but he is moving all extremities purposefully Extremities: No trauma, well perfused, no lower extremity edema Psych: Cooperative, altered secondary to severe respiratory distress Course Orders Ordered: ED Orders 04/03/23 07:45 Complete Blood Count AUTO DIFF Stat Comprehensive Metabolic Panel Stat D Dimer Stat Lactate (Lactic Acid) Stat Lipase Stat Magnesium Stat NT-proBNP (BNP-Adult 18+) Stat Procalcitonin Stat Thyroid Stimulating Hormone Stat Troponin I Stat 04/03/23 07:52 EKG-12 Lead Stat 04/03/23 07:53 XR chest 1V Stat 04/03/23 07:55 Respiratory Panel (Film Array) Stat 04/03/23 08:04 ABG [Arterial Blood Gas] Stat 04/03/23 08:20 Blood Culture Stat Type and Screen Stat 04/03/23 08:30 Urinalysis and Microscopic Stat Urine Culture Stat 04/03/23 08:57 XR chest 1V Stat 04/03/23 09:23 CT abdomen pelvis w con Stat CT angio chest PE protocol Stat NOREPINEPHRINE BITARTRATE/D5W (Levophed) 4 mg in 250 mls @ 38.952 mls/hr IV TITRATE KONG; Protocol Last Titration: 04/03/23 10:38 Dose: 0 mcg/kg/min, 0 mls/hr Documented By: Titration: 04/03/23 09:36 Dose: 0.015 mcg/kg/min, 5.843 mls/hr Documented By: Titration: 04/03/23 09:22 Dose: 0.025 mcg/kg/min, 9.738 mls/hr Documented By: Titration: 04/03/23 09:13 Dose: 0 mcg/kg/min, 0 mls/hr Documented By: Admin: 04/03/23 08:59 Dose: 0.05 mcg/kg/min, 19.476 mls/hr Documented By: MLM Sodium Chloride (Normal Saline 0.9%) 1,914 mls @ 638 mls/hr 30 ml/kg infuse over 3 hr (1914 ml) IV NOW ONE Stop: 04/03/23 12:02 Last Infusion: 04/03/23 11:05 Dose: 638 mls/hr Documented By: Infusion: 04/03/23 10:15 Dose: 638 mls/hr Documented By: Infusion: 04/03/23 09:51 Dose: 0 mls/hr Documented By: Admin: 04/03/23 09:28 Dose: 638 mls/hr Documented By: SPF Discontinued Medications Aspirin (Aspirin 81 Mg Chew Tab) 324 mg PO NOW ONE Stop: 04/03/23 07:51 Last Admin: 04/03/23 08:38 Dose: Not Given Documented By: ANDREA Cefepime HCl 2 gm/ Sodium (Chloride) 100 mls @ 200 mls/hr IV NOW ONE Stop: 04/03/23 08:09 Last Admin: 04/03/23 08:37 Dose: Not Given Documented By: ANDREA Sodium Chloride (Normal Saline 0.9%) 1,000 mls @ 1,000 mls/hr IV BOLUS ONE Stop: 04/03/23 09:07 Last Infusion: 04/03/23 09:15 Dose: Infused Documented By: Admin: 04/03/23 08:24 Dose: 1,000 mls/hr Documented By: ADNREA Vancomycin HCl/Dextrose (Vancomycin) 1,500 mg in 300 mls @ 200 mls/hr IV NOW ONE Stop: 04/03/23 09:59 Last Infusion: 04/03/23 10:15 Dose: 200 mls/hr Documented By: Infusion: 04/03/23 09:51 Dose: 0 mls/hr Documented By: Admin: 04/03/23 09:00 Dose: 200 mls/hr Documented By: ANDREA Piperacillin Sod/Tazobactam (Sod 4.5 gm/ Sodium Chloride) 100 mls @ 200 mls/hr IV NOW ONE Stop: 04/03/23 08:31 Last Infusion: 04/03/23 08:58 Dose: Infused Documented By: Admin: 04/03/23 08:35 Dose: 200 mls/hr Documented By: MLM Acetaminophen (Ofirmev) 1,000 mg in 100 mls @ 400 mls/hr IV NOW ONE Stop: 04/03/23 08:54 Last Infusion: 04/03/23 09:01 Dose: Infused Documented By: Admin: 04/03/23 08:42 Dose: 400 mls/hr Documented By: ANDREA Ertapenem 1 gm/ Sodium (Chloride) 100 mls @ 200 mls/hr IV NOW ONE Stop: 04/03/23 09:24 Vancomycin HCl (Vancomycin Per Pharmacy) 1 request MISC NOW ONE Stop: 04/03/23 08:12 Last Admin: 04/03/23 08:38 Dose: 1 request Documented By: ANDREA Vital Signs Vital signs: Vital Signs - 8 hr 04/03/23 07:55 04/03/23 08:00 04/03/23 08:03 Temperature 100.1 F H Pulse Rate 109 H 109 H 112 H Respiratory Rate 54 H 63 H 48 H Blood Pressure 102/59 L Pulse Oximetry 90 L 90 L 90 L Oxygen Delivery Method Nasal Cannula Room Air Oxygen Flow Rate 2 04/03/23 08:19 04/03/23 08:19 04/03/23 08:21 Temperature Pulse Rate 105 H 104 H Respiratory Rate 42 H 38 H Blood Pressure 78/50 L Pulse Oximetry 92 Oxygen Delivery Method Nasal Cannula Oxygen Flow Rate 2 04/03/23 08:21 04/03/23 08:26 04/03/23 08:26 Temperature Pulse Rate 105 H Respiratory Rate 40 H Blood Pressure 78/50 L 79/49 L Pulse Oximetry 91 Oxygen Delivery Method Nasal Cannula Oxygen Flow Rate 2 04/03/23 08:30 04/03/23 08:30 04/03/23 08:35 Temperature 101.5 F H Pulse Rate 108 H 109 H Respiratory Rate 38 H 42 H Blood Pressure 83/52 L Pulse Oximetry 92 93 Oxygen Delivery Method Nasal Cannula Oxygen Flow Rate 2 04/03/23 08:35 04/03/23 08:41 04/03/23 08:41 Temperature 102.0 F H Pulse Rate 104 H Respiratory Rate 45 H Blood Pressure 90/51 L 72/45 L Pulse Oximetry 93 Oxygen Delivery Method Nasal Cannula Oxygen Flow Rate 2 04/03/23 08:47 04/03/23 08:47 04/03/23 08:50 Temperature 102.0 F H 102.0 F H Pulse Rate 101 H 100 H Respiratory Rate 66 H 60 H Blood Pressure 66/46 L Pulse Oximetry 93 93 Oxygen Delivery Method Oxygen Flow Rate 04/03/23 08:50 04/03/23 08:54 04/03/23 08:54 Temperature 102.0 F H Pulse Rate 99 H Respiratory Rate 47 H Blood Pressure 96/49 L 86/50 L Pulse Oximetry 94 Oxygen Delivery Method Nasal Cannula Oxygen Flow Rate 2 04/03/23 08:59 04/03/23 08:59 04/03/23 09:00 Temperature 102.0 F H Pulse Rate 100 H 118 H Respiratory Rate 58 H 24 Blood Pressure 105/55 L 102/59 L Pulse Oximetry 95 97 Oxygen Delivery Method Oxygen Flow Rate 04/03/23 09:00 04/03/23 09:00 04/03/23 09:00 Temperature 101.8 F H Pulse Rate 105 H 118 H Respiratory Rate 58 H 24 Blood Pressure 159/82 H Pulse Oximetry 95 97 Oxygen Delivery Method Heated High Flow Oxygen Flow Rate 04/03/23 09:03 04/03/23 09:03 04/03/23 09:04 Temperature 101.5 F H 101.5 F H Pulse Rate 117 H 120 H Respiratory Rate 52 H 39 H Blood Pressure 182/92 H Pulse Oximetry 95 95 Oxygen Delivery Method Heated High Flow Heated High Flow Oxygen Flow Rate 04/03/23 09:04 04/03/23 09:06 04/03/23 09:06 Temperature 101.3 F H Pulse Rate 122 H Respiratory Rate 68 H Blood Pressure 216/91 H 211/89 H Pulse Oximetry 96 Oxygen Delivery Method Oxygen Flow Rate 04/03/23 09:08 04/03/23 09:08 04/03/23 09:12 Temperature 101.3 F H Pulse Rate 120 H Respiratory Rate 70 H Blood Pressure 186/55 H 184/77 H Pulse Oximetry 97 Oxygen Delivery Method Heated High Flow Oxygen Flow Rate 04/03/23 09:12 04/03/23 09:17 04/03/23 09:17 Temperature 101.1 F H 101.1 F H Pulse Rate 114 H 109 H Respiratory Rate 68 H 80 H Blood Pressure 118/56 L Pulse Oximetry 97 97 Oxygen Delivery Method Heated High Flow Heated High Flow Oxygen Flow Rate 04/03/23 09:20 04/03/23 09:20 04/03/23 09:24 Temperature 100.9 F H 100.9 F H Pulse Rate 102 H 100 H Respiratory Rate 79 H 52 H Blood Pressure 102/55 L Pulse Oximetry 95 96 Oxygen Delivery Method Oxygen Flow Rate 04/03/23 09:24 04/03/23 09:28 04/03/23 09:28 Temperature 100.9 F H Pulse Rate 106 H Respiratory Rate 54 H Blood Pressure 100/51 L 138/60 Pulse Oximetry 97 Oxygen Delivery Method Oxygen Flow Rate 04/03/23 09:30 04/03/23 09:32 04/03/23 09:32 Temperature 100.9 F H 100.9 F H Pulse Rate 105 H 106 H Respiratory Rate 79 H 81 H Blood Pressure 173/70 H Pulse Oximetry 97 97 Oxygen Delivery Method Oxygen Flow Rate 04/03/23 09:36 04/03/23 09:36 04/03/23 09:40 Temperature 100.8 F H Pulse Rate 108 H Respiratory Rate 65 H Blood Pressure 159/69 H 134/62 Pulse Oximetry 97 Oxygen Delivery Method Oxygen Flow Rate 04/03/23 09:40 04/03/23 09:44 04/03/23 09:44 Temperature 100.6 F H 100.4 F H Pulse Rate 108 H 104 H Respiratory Rate 81 H 79 H Blood Pressure 123/57 L Pulse Oximetry 97 96 Oxygen Delivery Method Heated High Flow Oxygen Flow Rate 04/03/23 09:54 04/03/23 09:54 04/03/23 09:56 Temperature 100.4 F H Pulse Rate 97 H Respiratory Rate 30 H Blood Pressure 119/58 L 113/55 L Pulse Oximetry 97 Oxygen Delivery Method Oximask Oxygen Flow Rate 6 04/03/23 09:56 Temperature 100.4 F H Pulse Rate 97 H Respiratory Rate 28 H Blood Pressure Pulse Oximetry 97 Oxygen Delivery Method Oximask Oxygen Flow Rate 6 Medical Decision Making Lab Data 04/03/23 07:45 04/03/23 07:45 Labs: Lab Results 04/03/23 04/03/23 04/03/23 Range/Units 07:45 07:55 08:04 WBC 21.9 H (4.5-11.0) X10^3/uL RBC 4.20 L (4.5-5.9) X10^6/uL Hgb 11.4 L (13.5-17.5) g/dL Hct 34.6 L (41-53) % MCV 82.3 (80-100) fL MCH 27.0 (26-34) PG MCHC 32.8 (30-36) % RDW 16.4 H (11.6-14.8) % Plt Count 268 (150-400) X10^3/uL Neut % (Auto) 85.7 H (50-75) % Lymph % (Auto) 5.8 L (25-40) % Motley % (Auto) 7.8 (3-14) % Eos % (Auto) 0.1 L (2-4) % Baso % (Auto) 0.6 (0-2) % Neut # (Auto) 47522 H (0128-0818) /uL Lymph # (Auto) 1300 (8690-2868) /uL Motley # (Auto) 1700 H (0-900) /uL Eos # (Auto) 0 (0-450) /uL Baso # (Auto) 100 (0-100) /uL D-Dimer 817 H (<500) ng/ml ABG Sample Site Right radial ABG pH 7.47 H (7.35-7.45) ABG pCO2 24.8 L* (35-45) mmHg ABG pO2 62 L (80-100) mmHg ABG HCO3 18 L (23-27) mmol/L ABG Total CO2 19 L (23-27) mmol/L ABG O2 Saturation 93 L (95-100) % ABG Base Excess -5.0 L (-2-3) mmol/L FiO2 21 Sodium 134 L (137-145) mmol/L Potassium 3.8 (3.4-5.1) mmol/L Chloride 101 (98-107) mmol/L Carbon Dioxide 18 L (22-32) mmol/L BUN 27 H (9-20) mg/dL Creatinine 1.18 (0.66-1.25) mg/dL Estimated GFR > 60 (>60) mL/min BUN/Creatinine Ratio 22.9 H (6-22) Glucose 209 H (80-110) mg/dL Lactate 6.2 H* (0.7-2.1) mmol/L Calcium 10.3 H (8.4-10.2) mg/dL Magnesium 1.7 (1.6-2.3) mg/dL Total Bilirubin 1.1 (0.2-1.3) mg/dL AST 20 (17-59) IU/L ALT 12 (<50) IU/L Alkaline Phosphatase 113 (38-126) U/L Troponin I 0.020 (0.01-0.034) ng/mL NT-Pro-B Natriuret Pep 700 H (<125) pg/mL Total Protein 7.6 (6.3-8.2) g/dL Albumin 3.9 (3.5-5.0) g/dL Globulin 3.7 (1.7-4.1) g/dL Albumin/Globulin Ratio 1.1 (1.0-2.8) Lipase 32 (23-300) U/L Procalcitonin 2.54 H (<0.5) ng/mL TSH 1.09 (0.47-4.68) uIU/mL Urine Color Urine Appearance Urine pH (4.5-8.0) Ur Specific [place] (1.000-1.035) Urine Protein (Negative) Urine Glucose (UA) (Negative) g/dL Urine Ketones (NEGATIVE) Urine Occult Blood (Negative) Urine Nitrate (Negative) Urine Bilirubin (NEGATIVE) Urine Urobilinogen (0.2) E.U./dL Ur Leukocyte Esterase (NEGATIVE) Urine RBC (0-5/HPF) Urine WBC (0-5/HPF) Ur Squamous Epith Cells (0-5/HPF) Urine Bacteria (None) Ur Culture Indicated? Vol Urine Centrifuged Chlamy pneumoniae PCR Not detected (Not Detect) Adenovirus (PCR) Not detected (Not Detect) B.parapertussis DNA PCR Not detected (Not Detecte) Coronavirus OC43 (PCR) Not detected (Not Detect) Coronavirus HKU1 (PCR) Not detected (Not Detect) Coronavirus 229E (PCR) Not detected (Not Detect) SARS-CoV-2 (PCR) Not detected (Not Detecte) Coronavirus NL63 (PCR) Not detected (Not Detect) Human Metapneumovir PCR Not detected (Not Detect) Influenza Type A (PCR) Not detected (Not Detect) Influenza Type B (PCR) Not detected (Not Detect) M. pneumoniae (PCR) Not detected (Not Detect) Parainfluenza 1 (PCR) Not detected (Not Detect) Parainfluenza 2 (PCR) Not detected (Not Detect) Parainfluenza 3 (PCR) Not detected (Not Detect) Parainfluenza 4 (PCR) Not detected (Not Detect) RSV (PCR) Not detected (Not Detect) Entero/Rhino (PCR) Not detected (Not Detect) Blood Type Antibody Screen 04/03/23 04/03/23 Range/Units 08:20 08:30 WBC (4.5-11.0) X10^3/uL RBC (4.5-5.9) X10^6/uL Hgb (13.5-17.5) g/dL Hct (41-53) % MCV (80-100) fL MCH (26-34) PG MCHC (30-36) % RDW (11.6-14.8) % Plt Count (150-400) X10^3/uL Neut % (Auto) (50-75) % Lymph % (Auto) (25-40) % Motley % (Auto) (3-14) % Eos % (Auto) (2-4) % Baso % (Auto) (0-2) % Neut # (Auto) (9244-4374) /uL Lymph # (Auto) (9424-2104) /uL Motley # (Auto) (0-900) /uL Eos # (Auto) (0-450) /uL Baso # (Auto) (0-100) /uL D-Dimer (<500) ng/ml ABG Sample Site ABG pH (7.35-7.45) ABG pCO2 (35-45) mmHg ABG pO2 (80-100) mmHg ABG HCO3 (23-27) mmol/L ABG Total CO2 (23-27) mmol/L ABG O2 Saturation (95-100) % ABG Base Excess (-2-3) mmol/L FiO2 Sodium (137-145) mmol/L Potassium (3.4-5.1) mmol/L Chloride (98-107) mmol/L Carbon Dioxide (22-32) mmol/L BUN (9-20) mg/dL Creatinine (0.66-1.25) mg/dL Estimated GFR (>60) mL/min BUN/Creatinine Ratio (6-22) Glucose (80-110) mg/dL Lactate (0.7-2.1) mmol/L Calcium (8.4-10.2) mg/dL Magnesium (1.6-2.3) mg/dL Total Bilirubin (0.2-1.3) mg/dL AST (17-59) IU/L ALT (<50) IU/L Alkaline Phosphatase (38-126) U/L Troponin I (0.01-0.034) ng/mL NT-Pro-B Natriuret Pep (<125) pg/mL Total Protein (6.3-8.2) g/dL Albumin (3.5-5.0) g/dL Globulin (1.7-4.1) g/dL Albumin/Globulin Ratio (1.0-2.8) Lipase (23-300) U/L Procalcitonin (<0.5) ng/mL TSH (0.47-4.68) uIU/mL Urine Color Yellow Urine Appearance Clear Urine pH 5.5 (4.5-8.0) Ur Specific [place] 1.020 (1.000-1.035) Urine Protein 1+ H (Negative) Urine Glucose (UA) 2+ H (Negative) g/dL Urine Ketones Negative (NEGATIVE) Urine Occult Blood Trace-intact (Negative) Urine Nitrate Negative (Negative) Urine Bilirubin Negative (NEGATIVE) Urine Urobilinogen 0.2 (0.2) E.U./dL Ur Leukocyte Esterase 1+ H (NEGATIVE) Urine RBC 1-5/hpf (0-5/HPF) Urine WBC >100/hpf H (0-5/HPF) Ur Squamous Epith Cells 01 (0-5/HPF) Urine Bacteria Many (>30) H (None) Ur Culture Indicated? Specimen cultured Vol Urine Centrifuged 10ml (spun) Chlamy pneumoniae PCR (Not Detect) Adenovirus (PCR) (Not Detect) B.parapertussis DNA PCR (Not Detecte) Coronavirus OC43 (PCR) (Not Detect) Coronavirus HKU1 (PCR) (Not Detect) Coronavirus 229E (PCR) (Not Detect) SARS-CoV-2 (PCR) (Not Detecte) Coronavirus NL63 (PCR) (Not Detect) Human Metapneumovir PCR (Not Detect) Influenza Type A (PCR) (Not Detect) Influenza Type B (PCR) (Not Detect) M. pneumoniae (PCR) (Not Detect) Parainfluenza 1 (PCR) (Not Detect) Parainfluenza 2 (PCR) (Not Detect) Parainfluenza 3 (PCR) (Not Detect) Parainfluenza 4 (PCR) (Not Detect) RSV (PCR) (Not Detect) Entero/Rhino (PCR) (Not Detect) Blood Type AB Positive Antibody Screen Negative Point of Care Testing Glucose POC 211 Point of care testing: Point of Care Testing Glucose POC [address] angio of the chest: Radiologist's Impression: PROCEDURE: CT ANGIO CHEST PE PROTOCOL INDICATIONS: ? PE, severe sepsis TECHNIQUE: After the administration of intravenous contrast, 2 mm thick sections acquired from the pulmonary apices to the posterior costophrenic angles. 3-dimensional maximum intensity projection (MIP) coronal and sagittal reformats were then acquired through the thorax. For radiation dose reduction, the following was used: automated exposure control, adjustment of mA and/or kV according to patient size. COMPARISON: [facility], CT, CT ABDOMEN PELVIS WO CON, 06/01/2022, 13:59. [facility], CT, CT KIDNEY URETER BLADDER (KUB), 08/25/2022, 14:12. [facility], CR, XR CHEST 1V, 04/03/2023, 7:54. [facility], CR, XR CHEST 1V, 04/03/2023, 8:52. [facility], CT, CT ABDOMEN PELVIS W CON, 04/03/2023, 9:37. FINDINGS: Image quality: Limited by bolus timing. Pulmonary arteries: The bolus of the contrast injection is suboptimal. The main pulmonary artery measures 200 Hounsfield units. Pulmonary artery densities are greater than 250 Hounsfield units are considered to be ideal for evaluation of pulmonary embolism. However, no large or central pulmonary emboli are seen on these images. No pulmonary emboli are seen more distally, although sensitivity for detection of such is limited on this study. Lower Neck: No enlarged lymph nodes. Thyroid: demonstrates no significant abnormality Axillae: No enlarged lymph nodes. Chest Wall: There is a right-sided neural stimulator partially seen. A right- sided central line is seen, with the tip within the mid superior vena cava. Bones: Remote left-sided rib fractures are seen. Age-appropriate bony degenerative changes are seen. Accentuated thoracic kyphosis is seen. Lungs and Pleura: No pneumothorax or pleural effusions. No consolidation or suspicious nodules. Heart: Heart size is normal. No pericardial effusion. Thoracic Vessels: No aortic aneurysm. Mediastinum and Bridgette: No enlarged lymph nodes. Esophagus: No wall thickening. No large or central pulmonary embolism can be seen. hiatal hernia. Upper Abdomen: Please see the accompanying CT report. IMPRESSION: No large or central pulmonary embolism can be seen. No acute cardiopulmonary process. The tip of the right-sided central line can be seen within the mid superior vena cava. Additional findings: Right-sided neural stimulator Remote left-sided rib fractures Dictated by: Benji Morris M.D. on 04/03/2023 at 9:51 CT scan - abdomen/pelvis: Radiologist's Impression: PROCEDURE: CT ABDOMEN PELVIS W CON INDICATIONS: Severe sepsis, source not clear TECHNIQUE: After the administration of intravenous contrast, axial sections acquired from the lung bases to the pubic symphysis. Coronal and sagittal reformats were performed. For radiation dose reduction, the following was used: automated exposure control, adjustment of mA and/or kV according to patient size. COMPARISON: [facility], CT, CT ABDOMEN PELVIS WO CON, 06/01/2022, 13:59. [facility], CT, CT KIDNEY URETER BLADDER (KUB), 08/25/2022, 14:12. [facility], CT, CT ANGIO CHEST PE PROTOCOL, 04/03/2023, 9:37. [facility], CR, XR CHEST 1V, 04/03/2023, 8:52. [facility], CR, XR CHEST 1V, 04/03/2023, 7:54. FINDINGS: Image quality: Diagnostic. Lower Chest: No significant findings. ABDOMEN: Liver: No solid mass. Gallbladder: No radiopaque gallstones or wall thickening. Biliary ducts: No biliary dilation. Pancreas: No ductal dilation. Spleen: Size is within normal limits. Adrenal Glands: There is a left adrenal nodule seen that measures up to 1.8 cm, as on series 2, image 23. No right adrenal nodules. Kidneys and Ureters: No hydronephrosis. No solid mass. No complex renal cystic lesion which requires follow up. Bilateral perinephric fat stranding can be seen. Stomach and Bowel: A normal appendix is seen. No significant colonic abnormality is seen. No dilated loops of small bowel are seen. The stomach is decompressed at the time of this study, limiting its evaluation. Peritoneum: No abnormal intraperitoneal fluid. No free air. Ventral Wall: No significant ventral hernia. Abdominal Nodes: No retroperitoneal or mesenteric adenopathy by size criteria. Vessels: Aorta and inferior vena cava are normal in size. Atherosclerotic calcification is noted. PELVIS: Pelvic Organs: Numerous prostate seed implants can be seen. Bladder: A Churchill catheter is seen, which decompresses the bladder. Pelvic Nodes: No enlarged lymph nodes. Miscellaneous: Bilateral fat containing inguinal hernias are seen. Bones: No aggressive osseous abnormality. Multifocal degenerative change can be seen. IMPRESSION: A cause of sepsis is not seen. Additional findings: Left adrenal nodule, a benign lipid rich adrenal adenoma based on prior imaging. Prostate seed implants Churchill catheter Bilateral fat containing inguinal hernias Dictated by: Benji Morris M.D. on 04/03/2023 at 9:44 MDM Narrative Medical decision making narrative: CC: Severe respiratory distress Complicating co-morbidities: History of congestive heart failure, Parkinson's disease, hyperlipidemia, patient states he has COPD however this is not listed on problem list from his primary care physicians and he has no nebulizers or inhalers at home. Data collected from: patient, excellent report from the medics Medical records reviewed: Primary care notes from March 04 are reviewed Differential considered: Differential is vast and includes acute coronary syndrome, STEMI, severe COPD exacerbation, dissection, pulmonary embolism, pneumothorax, sepsis, severe anemia Code status: Full code, reviewed with and son-in-law Exam documented above, pertinent findings include: Severe respiratory distress with significant diaphoresis and tachypnea with poor overall air movements Lab Test results independently reviewed as above. Pertinent findings: CBC shows significant leukocytosis at 21.9. Chronic stable anemia at 11.4 and 34.6. Platelets are appropriate. Significant left shift but no bands are reported Metabolic panel shows stable renal function, appropriate potassium levels. Glucose of 208. Calcium is slightly elevated at 10.3. Liver studies are unremarkable ProBNP is minimally elevated at 700 Procalcitonin is significantly elevated at 2.54 suggesting infection which is looking like that consolidating diagnosis Initial troponin is undetectable Lactic acid is significantly elevated at 6.2 Urinalysis from March 19 shows urinary tract infection sensitive to ertapenem, gentamicin, imipenem, nitrofurantoin, Zosyn. It is resistant to cefepime. We will change antibiotic choices from initial choice of cefepime to Zosyn. ABG shows a pH of 7.47 a CO2 of 24.8, O2 of 62 with 93% on room air D-dimer is minimally elevated at 817 however given the extreme respiratory distress on arrival PE remains within the differential and CT angiogram will be ordered. Serology panel is unremarkable, no viruses detected Independently reviewed EKG: Initial EKG has poor baseline secondary to his significant tachypnea but does show sinus tach at 110 nonspecific STT wave changes, no STEMI criteria appreciated Imaging studies independently reviewed: Chest x-ray shows a pacemaker, multiple pulmonary nodules, no pneumothorax, no pleural effusions no significant cardiomegaly and no mediastinal widening CT angiogram of the chest does not show pulmonary embolism or additional pulmonary pathology CT scan of the abdomen and pelvis does not show any acute findings or alternate explanation for infection Consultations: 820 am family is fully updated including concerns for significant deterioration and need for central line and likely intubation. He is a full code which seems completely appropriate at that time with a likely reversible and survival source for presentation Treatments: Nebulizer which was minimally helpful, continued tachypnea Re-evaluations: 858: Central line in, fluids going, Levophed initiated. Blood pressures were as low as 80 systolic currently at 105/55 with a map of 75. Chest x-ray shows worsening pulmonary infiltrates and appropriately placed central line without pneumothorax. High-flow is started due to his continued significant tachypnea. Oxygenation has not been significantly problematic. He is currently in the mid 90s with 2 L nasal cannula. He is tachypneic to the 50s. Repeat lactic acid after initial fluid resuscitation is down to 2.4 Discussion: 73-year-old gentleman presents with fever, tachypnea, tachycardia increasing for the last week. Labs and initial workup do not suggest acute coronary syndrome, STEMI, pneumothorax, severe consolidated bacterial pneumonia, congestive heart failure. Review of medical records indicate that he does have a history of prostate cancer, urinary retention and recurrent urinary tract infections most recent of which cultured out ESBL, multi resistant E coli. Initial antibiotics ordered were cefepime and vanco. The E coli is resistant to cefepime so that was rapidly changed to Zosyn. Patient's pressure began to fall and central line was placed with additional fluid resuscitation. Nor epi was initiated. Continued to be significantly tachypneic and high-flow oxygen is initiated. 45L/min 35% O2 with RR coming down to the low 20s. Patient is subjectively feeling better. 923 care is reviewed with Dr. Andres Granado. He suggested adding ertapenem to the mixed given the ESBL E coli. Agrees with PE study for the chest and continued CT scan of the abdomen to rule out additional sources of infection. Admission is accepted. Additional Information: Severe Sepsis Criteria [ x ] bacterial source of infection suspected and documented [ x ] 2 SIRS Criteria met [ x ] HR >90 [ x ] RR >20 [ x ] fever or hypothermia [ x ] leukocytosis/leukopenia/bandemia [ ] Evidence of at least 1 organ system dysfunction [ x ] Lactate > 2 [ x ] BP < 90 or MAP <65, >40mm decrease from normal baseline [ ] Creat > 2.0 [ ] T. Bili > 2.0 [ ] platelet count < 100k [ ] altered mental status [ ] mechanical ventilation [ x] provider documentation of severe sepsis 745am Severe Sepsis Determination. the patient has been screened and [ x ] DOES meet criteria for severe sepsis [ ] DOES NOT meet criteria for severe sepsis Goal directed treatment Within 3 hours [ x] blood cx drawn prior to abx [ x] broad spectrum abx started [ x ] lactic acid level checked [ ] lactic redrawn within 6 hours if >2.0 Septic Shock Criteria [ x ] lactic > 4 at any time [ x ] SBP ,90 or MAP , 65 [ x ] documentation of septic shock Time Septic Shock diagnosed: [ 0745 ] Septic Shock Determination. the patient has been screened and [ x ] DOES meet criteria for septic shock [ ] DOES NOT meet criteria for septic shock Goal directed therapy within 3 hours of septic shock or initial hypotension [ ] 30ml/kg fluid [ ] ABW used [x ] IBW (33.6) used due to BMI > 30 [ ] patient or advocate declining fluid administration after shared decision making conversation Clinical reason for NOT initiating fluid bolus: Within 6 hours (if continued hypotension after fluids or initial lactate >4) [ x ] repeat volume status and tissue perfusion assessment documented after fluid bolus was completed at [Date/Time] Must include vital signs, cardiopulmonary exam, capillary refill, peripheral pulse evaluation, skin exam [ x ] Initiate vasopressor therapy if persistent hypotension after adequate fluid bolus Critical Care Time Critical Care Time Critical Care Time: Yes Total Critical Care Time: 34 Attestation: Critical care time is separate from other billable procedures. There is a high probability of a significant, sudden or life-threatening deterioration that requires my full and direct attention, intervention and personal management. This critical care time includes consultation with family and other consulting doctors, review of records, and interpretation of data from labs, EKGs and imaging as well as managements of severe sepsis Discharge Plan Departure Patient Disposition: Admitted As Inpatient Clinical Impression: Acute UTI Sepsis Qualifiers: Sepsis type: sepsis due to unspecified organism Sepsis acute organ dysfunction status: with acute organ dysfunction Severe sepsis acute organ dysfunction type: acute respiratory failure Acute respiratory failure type: with hypoxia Severe sepsis shock status: with septic shock Qualified Code(s): A41.9 - Sepsis, unspecified organism Admit Date/Time: 04/03/23 09:57 Admit Provider: Andres Granado
--- NOTE | 2023-04-03 07:53 | DI.RAD.S_ITS ---
PROCEDURE: XR CHEST 1V INDICATIONS: dyspnea TECHNIQUE: One view of the chest was acquired. COMPARISON: [facility], CR, XR CHEST 1V, 06/01/2022, 17:52. FINDINGS: Surgical changes and devices: A right-sided stimulator is again seen. Lungs and pleura: An incomplete inspiratory result is noted, causing a crowded appearance to the lung markings. Mild generalized interstitial prominence can be seen. No focal infiltrates are seen. No pneumothorax or significant pleural effusions are seen. Mediastinum: The cardiac contours are at the upper limits of normal. The aorta demonstrates calcification and tortuosity. Bones and chest wall: Age-appropriate bony degenerative changes are seen. No suspicious bony lesions. Overlying soft tissues appear unremarkable. IMPRESSION: Low lung volumes with mild generalized interstitial prominence. Please consider mild pulmonary edema. Dictated by: Benji Morris M.D. on 04/03/2023 at 7:32 Approved by: Benji Morris M.D. on 04/03/2023 at 7:33
[2023-04-03 08:06] LABS: Add Manual Diff / Slide Review NO; Alanine Aminotransferase 12 IU/L (<50); Albumin 3.9 g/dL (3.5-5.0); Albumin Globulin Ratio 1.1 (1.0-2.8); Alkaline Phosphatase 113 U/L (38-126); Aspartate Aminotransferase 20 IU/L (17-59); BUN Creatinine Ratio 22.9 (6-22); Basophils Absolute Auto 100 /uL (0-100); Basophils Percent Auto 0.6 % (0-2); Bilirubin Total 1.1 mg/dL (0.2-1.3); Blood Urea Nitrogen 27 mg/dL (9-20); Calcium 10.3 mg/dL (8.4-10.2); Carbon Dioxide 18 mmol/L (22-32); Chloride 101 mmol/L (98-107); Eosinophils Absolute Auto 0 /uL (0-450); Eosinophils Percent Auto 0.1 % (2-4); Estimated Glomerular Filt Rate > 60 mL/min (>60); Globulin 3.7 g/dL (1.7-4.1); Glucose 209 mg/dL (80-110); HEMOLYSIS < 15 (0-50); Hematocrit 34.6 % (41-53); Hemoglobin 11.4 g/dL (13.5-17.5); Lipase 32 U/L (23-300); Lymphocytes Absolute Auto 1300 /uL (1100-4500); Lymphocytes Percent Auto 5.8 % (25-40); Magnesium 1.7 mg/dL (1.6-2.3); Mean Corpuscular HGB Conc 32.8 % (30-36); Mean Corpuscular Volume 82.3 fL (80-100); Monocytes Absolute Auto 1700 /uL (0-900); Monocytes Percent Auto 7.8 % (3-14); Neutrophils Absolute Auto 18700 /uL (1500-7000); Neutrophils Percent Auto 85.7 % (50-75); Platelet Count 268 X10^3/uL (150-400); Potassium 3.8 mmol/L (3.4-5.1); Red Cell Distribution Width 16.4 % (11.6-14.8); Sodium 134 mmol/L (137-145); Total Protein 7.6 g/dL (6.3-8.2); White Blood Cell Count 21.9 X10^3/uL (4.5-11.0)
[2023-04-03 08:09] LABS: Lactate (Lactic Acid) 6.2 mmol/L (0.7-2.1)
--- NOTE | 2023-04-03 08:10 | PC.NURSE ---
PT SOB, difficulty talking, restless, tachypneic, tachycardic, pale, and hypotensive. He denies having any pain. Pt transferred to ER room 1 for critical care and central line placement.
[2023-04-03 08:17] LABS: NT-proBNP (BNP-Adult 18+) 700 pg/mL (<125)
[2023-04-03 08:22] LABS: Procalcitonin 2.54 ng/mL (<0.5)
[2023-04-03] MEDS: SODIUM CHLORIDE 0.9% 1,000 ML 1000 ML IV (08:24)
[2023-04-03 08:26] LABS: D Dimer 817 ng/ml (<500)
[2023-04-03 08:28] LABS: HCO3 ABG 18 mmol/L (23-27); Oxygen Saturation ABG 93 % (95-100); PCO2 ABG 24.8 mmHg (35-45); PO2 ABG 62 mmHg (80-100); TCO2 ABG 19 mmol/L (23-27); pH ABG 7.47 (7.35-7.45)
[2023-04-03 08:29] LABS: Allen Test for ABG Passed? Yes, Passed; Blood Gas Collection Site Right Radial; Fractionated Inspired Oxygen 21
[2023-04-03] MEDS: PIPERACILLIN/TAZO 4.5 GM in SODIUM CHLORIDE 0.9% 100 ML IV (08:35)
--- NOTE | 2023-04-03 08:35 | PC.NURSE ---
Temperature sensing catheter placed, pt tolerated procedure.
[2023-04-03 08:38] LABS: Thyroid Stimulating Hormone 1.09 uIU/mL (0.47-4.68)
[2023-04-03] MEDS: VANCOMYCIN PER PHARMACY 1 REQUEST MISC (08:38)
[2023-04-03] MEDS: ACETAMINOPHEN IV 1,000 MG/100 ML VIAL 400 MG IV (08:42)
[2023-04-03 08:45] LABS: Appearance Urine UA CLEAR; Bilirubin Urine UA NEGATIVE (NEGATIVE); Color Urine UA YELLOW; Glucose Urine UA 2+ g/dL (Negative); Ketones Urine UA NEGATIVE (NEGATIVE); Leukocyte Esterase Urine UA 1+ (NEGATIVE); Nitrite Urine UA NEGATIVE (Negative); Occult Blood Urine UA TRACE-INTACT (Negative); Protein Urine UA 1+ (Negative); Urobilinogen Urine UA 0.2 E.U./dL (0.2); pH Urine UA 5.5 (4.5-8.0)
--- NOTE | 2023-04-03 08:50 | PC.NURSE ---
Dr. Joe at bedside for emergent central line insertion. Pt tolerated procedure well while on 2L NC. Right triple lumen central line established. Stat Xray to confirm placement. Dr. Joe OKayed central line medication administration.
[2023-04-03 08:54] LABS: Bacteria Urine Many (>30); Culture Indicated Urine Specimen Cultured; RBC Urine 1-5/HPF (0-5/HPF); Urine Volume 10mL (spun); WBC Urine >100/HPF (0-5/HPF)
--- NOTE | 2023-04-03 08:57 | DI.RAD.S_ITS ---
PROCEDURE: XR CHEST 1V INDICATIONS: post central line placement TECHNIQUE: One view of the chest was acquired. COMPARISON: [facility], CR, XR CHEST 1V, 06/01/2022, 17:52. [facility], CR, XR CHEST 1V, 04/03/2023, 7:54. FINDINGS: Surgical changes and devices: There is a right-sided central line seen, with the tip overlying the mid aspect of the superior vena cava, 3 cm above the cavoatrial junction. There is a stable right-sided stimulator device Lungs and pleura: An incomplete inspiratory result is noted, causing a crowded appearance to the lung markings. No focal infiltrates are seen. No pneumothorax or significant pleural effusions are seen. Mediastinum: Mediastinal contours appear normal. Heart size is at the upper limits of normal. Bones and chest wall: No suspicious bony lesions. Overlying soft tissues appear unremarkable. IMPRESSION: The tip of the right-sided central line can be seen overlying the mid superior vena cava. Dictated by: Benji Morris M.D. on 04/03/2023 at 8:08 Approved by: Benji Morris M.D. on 04/03/2023 at 8:09
[2023-04-03] MEDS: NOREPINEPHRINE BITARTRATE/D5W 4 MG/250 ML PLAST..BAG 19.476 MG IV (08:59)
[2023-04-03] MEDS: VANCOMYCIN 1,500 MG/300 ML PIGGYBACK 200 MG IV (09:00)
--- NOTE | 2023-04-03 09:23 | DI.CT.S_ITS ---
PROCEDURE: CT ABDOMEN PELVIS W CON INDICATIONS: Severe sepsis, source not clear TECHNIQUE: After the administration of intravenous contrast, axial sections acquired from the lung bases to the pubic symphysis. Coronal and sagittal reformats were performed. For radiation dose reduction, the following was used: automated exposure control, adjustment of mA and/or kV according to patient size. COMPARISON: [facility], CT, CT ABDOMEN PELVIS WO CON, 06/01/2022, 13:59. [facility], CT, CT KIDNEY URETER BLADDER (KUB), 08/25/2022, 14:12. [facility], CT, CT ANGIO CHEST PE PROTOCOL, 04/03/2023, 9:37. [facility], CR, XR CHEST 1V, 04/03/2023, 8:52. [facility], CR, XR CHEST 1V, 04/03/2023, 7:54. FINDINGS: Image quality: Diagnostic. Lower Chest: No significant findings. ABDOMEN: Liver: No solid mass. Gallbladder: No radiopaque gallstones or wall thickening. Biliary ducts: No biliary dilation. Pancreas: No ductal dilation. Spleen: Size is within normal limits. Adrenal Glands: There is a left adrenal nodule seen that measures up to 1.8 cm, as on series 2, image 23. No right adrenal nodules. Kidneys and Ureters: No hydronephrosis. No solid mass. No complex renal cystic lesion which requires follow up. Bilateral perinephric fat stranding can be seen. Stomach and Bowel: A normal appendix is seen. No significant colonic abnormality is seen. No dilated loops of small bowel are seen. The stomach is decompressed at the time of this study, limiting its evaluation. Peritoneum: No abnormal intraperitoneal fluid. No free air. Ventral Wall: No significant ventral hernia. Abdominal Nodes: No retroperitoneal or mesenteric adenopathy by size criteria. Vessels: Aorta and inferior vena cava are normal in size. Atherosclerotic calcification is noted. PELVIS: Pelvic Organs: Numerous prostate seed implants can be seen. Bladder: A Churchill catheter is seen, which decompresses the bladder. Pelvic Nodes: No enlarged lymph nodes. Miscellaneous: Bilateral fat containing inguinal hernias are seen. Bones: No aggressive osseous abnormality. Multifocal degenerative change can be seen. IMPRESSION: A cause of sepsis is not seen. Additional findings: Left adrenal nodule, a benign lipid rich adrenal adenoma based on prior imaging. Prostate seed implants Churchill catheter Bilateral fat containing inguinal hernias Dictated by: Benji Morris M.D. on 04/03/2023 at 9:44 Approved by: Benji Morris M.D. on 04/03/2023 at 9:50
--- NOTE | 2023-04-03 09:23 | DI.CT.S_ITS ---
PROCEDURE: CT ANGIO CHEST PE PROTOCOL INDICATIONS: ? PE, severe sepsis TECHNIQUE: After the administration of intravenous contrast, 2 mm thick sections acquired from the pulmonary apices to the posterior costophrenic angles. 3-dimensional maximum intensity projection (MIP) coronal and sagittal reformats were then acquired through the thorax. For radiation dose reduction, the following was used: automated exposure control, adjustment of mA and/or kV according to patient size. COMPARISON: [facility], CT, CT ABDOMEN PELVIS WO CON, 06/01/2022, 13:59. [facility], CT, CT KIDNEY URETER BLADDER (KUB), 08/25/2022, 14:12. [facility], CR, XR CHEST 1V, 04/03/2023, 7:54. [facility], CR, XR CHEST 1V, 04/03/2023, 8:52. [facility], CT, CT ABDOMEN PELVIS W CON, 04/03/2023, 9:37. FINDINGS: Image quality: Limited by bolus timing. Pulmonary arteries: The bolus of the contrast injection is suboptimal. The main pulmonary artery measures 200 Hounsfield units. Pulmonary artery densities are greater than 250 Hounsfield units are considered to be ideal for evaluation of pulmonary embolism. However, no large or central pulmonary emboli are seen on these images. No pulmonary emboli are seen more distally, although sensitivity for detection of such is limited on this study. Lower Neck: No enlarged lymph nodes. Thyroid: demonstrates no significant abnormality Axillae: No enlarged lymph nodes. Chest Wall: There is a right-sided neural stimulator partially seen. A right-sided central line is seen, with the tip within the mid superior vena cava. Bones: Remote left-sided rib fractures are seen. Age-appropriate bony degenerative changes are seen. Accentuated thoracic kyphosis is seen. Lungs and Pleura: No pneumothorax or pleural effusions. No consolidation or suspicious nodules. Heart: Heart size is normal. No pericardial effusion. Thoracic Vessels: No aortic aneurysm. Mediastinum and Bridgette: No enlarged lymph nodes. Esophagus: No wall thickening. No large or central pulmonary embolism can be seen. hiatal hernia. Upper Abdomen: Please see the accompanying CT report. IMPRESSION: No large or central pulmonary embolism can be seen. No acute cardiopulmonary process. The tip of the right-sided central line can be seen within the mid superior vena cava. Additional findings: Right-sided neural stimulator Remote left-sided rib fractures Dictated by: Benji Morris M.D. on 04/03/2023 at 9:51 Approved by: Benji Morris M.D. on 04/03/2023 at 9:53
[2023-04-03] MEDS: SODIUM CHLORIDE 0.9% 1,914 ML 638 ML IV (09:28)
[2023-04-03 09:32] LABS: Reflexed Lactate in 2 Hours Y
[2023-04-03 09:35] LABS: Adenovirus Not Detected (Not Detect); B. parapertussis Not Detected (Not Detecte); Bordetella pertussis Not Detected (Not Detect); Chlamydophila pneumoniae Not Detected (Not Detect); Coronavirus 229E Not Detected (Not Detect); Coronavirus HKU1 Not Detected (Not Detect); Coronavirus NL 63 Not Detected (Not Detect); Coronavirus OC43 Not Detected (Not Detect); Human Metapneumovirus Not Detected (Not Detect); Human Rhinovirus/Enterovirus Not Detected (Not Detect); Influenza A Not Detected (Not Detect); Influenza B Not Detected (Not Detect); Mycoplasma pneumoniae Not Detected (Not Detect); Parainfluenza Virus 1 Not Detected (Not Detect); Parainfluenza Virus 2 Not Detected (Not Detect); Parainfluenza Virus 3 Not Detected (Not Detect); Parainfluenza Virus 4 Not Detected (Not Detect); Respiratory Syncytial Virus Not Detected (Not Detect); SARS- CoV-2 Not Detected (Not Detecte)
--- NOTE | 2023-04-03 09:58 | PC.NURSE ---
Pt transitioned to 6L oximask for transport to CT, o2 sat 97%. Pt on cardiac rehabilitation specialist for transfer, RN and RT with patient in CT.
[2023-04-03 10:30] LABS: Lactate 2HR (Lactic Acid Rflx) 2.4 mmol/L (0.7-2.1)
--- NOTE | 2023-04-03 10:55 | PC.NURSE ---
Pt reports feeling better and having intermittent SOB, denies having any pain currently. His Emma reports he has had headache, fever, and body aches at home the past 2 days.
[2023-04-03] MEDS: ERTAPENEM 1 GM in SODIUM CHLORIDE 0.9% 100 ML IV (11:20)
--- NOTE | 2023-04-03 12:21 | P.HP_ITS ---
History of Present Illness History of Present Illness Date Patient Seen: 04/03/23 Time Patient Seen: 11:45 Chief complaint: Resp Distress Narrative: The patient is a 73-year-old gentleman who presented to the emergency department with acute dyspnea and hypotension. He has a history of chronic urine retention and recurrent UTI with some history of ESBL. The patient was said to have a history of congestive heart failure as well. In addition he has diabetes mellitus which is insulin-dependent, hyperlipidemia, hypertension, and Parkinson's disease. Upon arrival the patient was in respiratory distress and improved with oxygen. He was hypotensive and improved with a fluid bolus. A right CVL was placed for possible pressors. The patient was given Zosyn initially and then ertapenem after his history of ESBL was discovered. The patient was recently treated for urine tract infection, and denies recent hematuria. He also denies chest pain or palpitations. He did have an elevated BNP and procalcitonin. A CT angiogram was negative for PE or other acute cardiac process. A CT of the abdomen and pelvis was negative for acute process as well. Upon arrival to the CCU with pressure was normalized in his lactic acidosis which was significant and had began to normalize. Upon arrival he denied any abdominal pain, recent URI symptoms including rhinorrhea or cough. He also denied recent diarrhea, nausea or vomiting. No recent fevers or chills. His initial blood sugar was less than 200, and he was doing well with a high- flow oxygen setting of 40 L and 35% FiO2. He was breathing comfortably and was not laboring. [facility] Medical History History of urinary retention Hyperlipidemia History of nephrolithiasis Left nephrolithiasis Urinary retention Recurrent UTI History of prostate cancer Acne Shoulder pain Ankle pain Measles Chicken pox Prostate cancer (~2010) Anemia Benign prostatic hyperplasia GERD (gastroesophageal reflux disease) Hypertension Type 2 diabetes mellitus Parkinson's disease Congestive heart failure Surgical History History of prostate biopsy Anesthesia History of knee surgery Kidney stones Family History Father Stroke Hypertension Bacterial UTI Mother Cancer Sister Hypertension Aunt Diabetes mellitus Uncle Kidney stones Social History marital status: number of children: 3 household members: spouse, family and children Smoking Status: Former smoker alcohol intake: never Type(s) of exercise: walking frequency: 1-2 times per week Meds Home Medications and Allergies Home Medications Medication Instructions Recorded Confirmed Type lancets 33 gauge (Micro Thin #100 ea 04/13/22 03/19/23 History Lancets) selegiline HCl 5 mg tablet 5 mg PO BID 04/13/22 04/03/23 History latanoprost 0.005 % eye drops 1 drp DAILY 06/02/22 04/03/23 History timolol maleate 0.5 % eye drops 1 drp ophthalmic (eye) DAILY 06/02/22 04/03/23 History aspirin 81 mg tablet,delayed 81 mg PO DAILY 10/21/22 04/03/23 History release (Adult Low Dose Aspirin) atorvastatin 10 mg tablet 10 mg PO DAILY #90 tabs 12/14/22 04/03/23 Rx metformin 850 mg tablet 850 mg PO TID #240 tabs 01/03/23 04/03/23 Rx losartan 50 mg tablet 50 mg PO DAILY #90 tabs 01/11/23 04/03/23 Rx finasteride 1 mg tablet 1 mg PO DAILY #90 tabs 01/17/23 04/03/23 Rx omeprazole 20 mg capsule,delayed 20 mg PO DAILY #90 caps 01/17/23 04/03/23 Rx release potassium citrate 10 mEq (1,080 10 meq PO BID #180 tabs 01/17/23 04/03/23 Rx mg) tablet,extended release tamsulosin 0.4 mg capsule 0.8 mg (2 x 0.4 mg) PO DAILY #180 01/17/23 04/03/23 Rx caps gabapentin 100 mg capsule 100 mg PO 3XD #270 caps 02/01/23 04/03/23 Rx insulin glargine 100 unit/mL (3 60 unit SUBCUT BID 02/18/23 04/03/23 History mL) subcutaneous pen (Lantus Solostar U-100 Insulin) pen needle, diabetic 32 gauge x #100 ea 03/08/23 03/19/23 Rx 5/32 (BD Reshma 2nd Gen Pen Needle) acetaminophen 500 mg tablet 500 mg PO Q6H PRN Pain (Scale 04/03/23 04/03/23 History (Acetaminophen Extra Strength) Score 4-6) carbidopa 25 mg-levodopa 100 mg See Rx Instructions .Route .COMPLEX 04/03/23 04/03/23 History tablet carbidopa ER 25 mg-levodopa 100 mg 1 tab PO BID 04/03/23 04/03/23 History tablet,extended release cranberry 400 mg capsule 400 mg PO DAILY 04/03/23 04/03/23 History Allergies Allergy/AdvReac Type Severity Reaction Status Date / Time No Known Drug Allergies Allergy Verified 03/19/23 11:30 Review of Systems Review of Systems Narrative: All else reviewed and otherwise unremarkable except as noted in the history and physical. Exam Vital Signs (past 8 hours): - 04/03/23 07:55 04/03/23 08:00 04/03/23 08:03 Temperature 100.1 F H Pulse Rate 109 H 109 H 112 H Respiratory Rate 54 H 63 H 48 H Blood Pressure 102/59 L Pulse Oximetry 90 L 90 L 90 L Oxygen Delivery Method Nasal Cannula Room Air Oxygen Flow Rate 2 04/03/23 08:19 04/03/23 08:19 04/03/23 08:21 Temperature Pulse Rate 105 H 104 H Respiratory Rate 42 H 38 H Blood Pressure 78/50 L Pulse Oximetry 92 Oxygen Delivery Method Nasal Cannula Oxygen Flow Rate 2 04/03/23 08:21 04/03/23 08:26 04/03/23 08:26 Temperature Pulse Rate 105 H Respiratory Rate 40 H Blood Pressure 78/50 L 79/49 L Pulse Oximetry 91 Oxygen Delivery Method Nasal Cannula Oxygen Flow Rate 2 04/03/23 08:30 04/03/23 08:30 04/03/23 08:35 Temperature 101.5 F H Pulse Rate 108 H 109 H Respiratory Rate 38 H 42 H Blood Pressure 83/52 L Pulse Oximetry 92 93 Oxygen Delivery Method Nasal Cannula Oxygen Flow Rate 2 04/03/23 08:35 04/03/23 08:41 04/03/23 08:41 Temperature 102.0 F H Pulse Rate 104 H Respiratory Rate 45 H Blood Pressure 90/51 L 72/45 L Pulse Oximetry 93 Oxygen Delivery Method Nasal Cannula Oxygen Flow Rate 2 04/03/23 08:47 04/03/23 08:47 04/03/23 08:50 Temperature 102.0 F H 102.0 F H Pulse Rate 101 H 100 H Respiratory Rate 66 H 60 H Blood Pressure 66/46 L Pulse Oximetry 93 93 Oxygen Delivery Method Oxygen Flow Rate 04/03/23 08:50 04/03/23 08:54 04/03/23 08:54 Temperature 102.0 F H Pulse Rate 99 H Respiratory Rate 47 H Blood Pressure 96/49 L 86/50 L Pulse Oximetry 94 Oxygen Delivery Method Nasal Cannula Oxygen Flow Rate 2 04/03/23 08:59 04/03/23 08:59 04/03/23 09:00 Temperature 102.0 F H Pulse Rate 100 H 118 H Respiratory Rate 58 H 24 Blood Pressure 105/55 L 102/59 L Pulse Oximetry 95 97 Oxygen Delivery Method Oxygen Flow Rate 04/03/23 09:00 04/03/23 09:00 04/03/23 09:00 Temperature 101.8 F H Pulse Rate 105 H 118 H Respiratory Rate 58 H 24 Blood Pressure 159/82 H Pulse Oximetry 95 97 Oxygen Delivery Method Heated High Flow Oxygen Flow Rate 04/03/23 09:03 04/03/23 09:03 04/03/23 09:04 Temperature 101.5 F H 101.5 F H Pulse Rate 117 H 120 H Respiratory Rate 52 H 39 H Blood Pressure 182/92 H Pulse Oximetry 95 95 Oxygen Delivery Method Heated High Flow Heated High Flow Oxygen Flow Rate 04/03/23 09:04 04/03/23 09:06 04/03/23 09:06 Temperature 101.3 F H Pulse Rate 122 H Respiratory Rate 68 H Blood Pressure 216/91 H 211/89 H Pulse Oximetry 96 Oxygen Delivery Method Oxygen Flow Rate 04/03/23 09:08 04/03/23 09:08 04/03/23 09:12 Temperature 101.3 F H Pulse Rate 120 H Respiratory Rate 70 H Blood Pressure 186/55 H 184/77 H Pulse Oximetry 97 Oxygen Delivery Method Heated High Flow Oxygen Flow Rate 04/03/23 09:12 04/03/23 09:17 04/03/23 09:17 Temperature 101.1 F H 101.1 F H Pulse Rate 114 H 109 H Respiratory Rate 68 H 80 H Blood Pressure 118/56 L Pulse Oximetry 97 97 Oxygen Delivery Method Heated High Flow Heated High Flow Oxygen Flow Rate 04/03/23 09:20 04/03/23 09:20 04/03/23 09:24 Temperature 100.9 F H 100.9 F H Pulse Rate 102 H 100 H Respiratory Rate 79 H 52 H Blood Pressure 102/55 L Pulse Oximetry 95 96 Oxygen Delivery Method Oxygen Flow Rate 04/03/23 09:24 04/03/23 09:28 04/03/23 09:28 Temperature 100.9 F H Pulse Rate 106 H Respiratory Rate 54 H Blood Pressure 100/51 L 138/60 Pulse Oximetry 97 Oxygen Delivery Method Oxygen Flow Rate 04/03/23 09:30 04/03/23 09:32 04/03/23 09:32 Temperature 100.9 F H 100.9 F H Pulse Rate 105 H 106 H Respiratory Rate 79 H 81 H Blood Pressure 173/70 H Pulse Oximetry 97 97 Oxygen Delivery Method Oxygen Flow Rate 04/03/23 09:36 04/03/23 09:36 04/03/23 09:40 Temperature 100.8 F H Pulse Rate 108 H Respiratory Rate 65 H Blood Pressure 159/69 H 134/62 Pulse Oximetry 97 Oxygen Delivery Method Oxygen Flow Rate 04/03/23 09:40 04/03/23 09:44 04/03/23 09:44 Temperature 100.6 F H 100.4 F H Pulse Rate 108 H 104 H Respiratory Rate 81 H 79 H Blood Pressure 123/57 L Pulse Oximetry 97 96 Oxygen Delivery Method Heated High Flow Oxygen Flow Rate 04/03/23 09:54 04/03/23 09:54 04/03/23 09:56 Temperature 100.4 F H Pulse Rate 97 H Respiratory Rate 30 H Blood Pressure 119/58 L 113/55 L Pulse Oximetry 97 Oxygen Delivery Method Oximask Oxygen Flow Rate 6 04/03/23 09:56 04/03/23 10:00 04/03/23 10:01 Temperature 100.4 F H 100.4 F H Pulse Rate 97 H 96 H Respiratory Rate 28 H Blood Pressure Pulse Oximetry 97 97 Oxygen Delivery Method Oximask Oximask Oxygen Flow Rate 6 6 04/03/23 10:04 04/03/23 10:04 04/03/23 10:08 Temperature 100.2 F H Pulse Rate 99 H Respiratory Rate Blood Pressure 127/61 134/69 Pulse Oximetry Oxygen Delivery Method Oxygen Flow Rate 04/03/23 10:08 04/03/23 10:09 04/03/23 10:09 Temperature 100.2 F H 100.0 F H Pulse Rate 100 H 100 H Respiratory Rate Blood Pressure 139/66 Pulse Oximetry 98 98 Oxygen Delivery Method Heated High Flow Oxygen Flow Rate 04/03/23 10:12 04/03/23 10:12 04/03/23 10:16 Temperature 100.0 F H 100.0 F H Pulse Rate 97 H 93 H Respiratory Rate 32 H Blood Pressure 115/56 L Pulse Oximetry 97 98 Oxygen Delivery Method Oximask Heated High Flow Oxygen Flow Rate 6 04/03/23 10:16 04/03/23 10:17 04/03/23 10:21 Temperature 100.0 F H Pulse Rate 111 H 94 H Respiratory Rate 24 30 H Blood Pressure 110/53 L Pulse Oximetry 97 98 Oxygen Delivery Method Heated High Flow Oxygen Flow Rate 04/03/23 10:21 04/03/23 10:25 04/03/23 10:25 Temperature 99.9 F H Pulse Rate 101 H Respiratory Rate 26 H Blood Pressure 120/59 L 177/73 H Pulse Oximetry 97 Oxygen Delivery Method Oxygen Flow Rate 04/03/23 10:28 04/03/23 10:28 04/03/23 10:30 Temperature 99.9 F H 99.7 F H Pulse Rate 101 H 100 H Respiratory Rate 28 H Blood Pressure 167/72 H Pulse Oximetry 98 99 Oxygen Delivery Method Heated High Flow Oxygen Flow Rate 04/03/23 10:32 04/03/23 10:32 04/03/23 10:36 Temperature 99.7 F H 99.7 F H Pulse Rate 98 H 97 H Respiratory Rate Blood Pressure 156/67 H Pulse Oximetry 97 97 Oxygen Delivery Method Heated High Flow Oxygen Flow Rate 04/03/23 10:36 04/03/23 10:40 04/03/23 10:40 Temperature 99.5 F Pulse Rate 96 H Respiratory Rate Blood Pressure 139/50 L 141/53 H Pulse Oximetry 96 Oxygen Delivery Method Oxygen Flow Rate 04/03/23 10:44 04/03/23 10:44 04/03/23 10:48 Temperature 99.5 F 99.3 F Pulse Rate 92 H 91 H Respiratory Rate Blood Pressure 119/57 L Pulse Oximetry 97 96 Oxygen Delivery Method Heated High Flow Oxygen Flow Rate 04/03/23 10:48 04/03/23 10:52 04/03/23 10:52 Temperature 99.3 F Pulse Rate 90 Respiratory Rate 30 H Blood Pressure 122/60 127/56 L Pulse Oximetry 97 Oxygen Delivery Method Heated High Flow Oxygen Flow Rate 04/03/23 10:57 04/03/23 10:57 04/03/23 11:00 Temperature 99.1 F 99.1 F Pulse Rate 87 86 Respiratory Rate 63 H 71 H Blood Pressure 130/62 Pulse Oximetry 99 98 Oxygen Delivery Method Heated High Flow Oxygen Flow Rate 04/03/23 11:00 04/03/23 11:15 04/03/23 11:15 Temperature 99.0 F Pulse Rate 84 Respiratory Rate 68 H Blood Pressure 140/66 129/56 L Pulse Oximetry 95 Oxygen Delivery Method Heated High Flow Oxygen Flow Rate 04/03/23 11:30 04/03/23 11:30 04/03/23 11:43 Temperature 99.0 F 98.8 F Pulse Rate 80 79 Respiratory Rate Blood Pressure 132/60 Pulse Oximetry 99 97 Oxygen Delivery Method Heated High Flow Oximask Oxygen Flow Rate 6 04/03/23 11:43 04/03/23 11:45 04/03/23 11:45 Temperature 98.8 F Pulse Rate 80 Respiratory Rate 40 H Blood Pressure 120/58 L 116/58 L Pulse Oximetry 100 Oxygen Delivery Method Oximask Oxygen Flow Rate 6 04/03/23 11:49 04/03/23 11:53 Temperature Pulse Rate 80 80 Respiratory Rate 22 Blood Pressure 108/88 Pulse Oximetry 99 98 Oxygen Delivery Method Oximask Oxygen Flow Rate 6 Oxygen Delivery Method Oximask Oxygen Flow Rate 6 Narrative Exam Narrative: NAD, alert and oriented, fluent speech, calm. HF O2. Normocephalic skull, EOMI, anicteric sclera, symmetric pupils. Oropharynx unremarkable, no droop. Neck supple, midline trachea, no adenopathy. Lungs clear, normal rate and effort. Heart regular, no murmur gallop or rub. Abdomen is soft, non distended and non tender. Extremities are free of edema. Skin is free of rash or lesions. Joints are not swollen or deformed. Judgment appears to be normal. Objective Imaging Multiple Studies:: Radiologist's impression: Chest CTA: No large or central pulmonary embolism can be seen. No acute cardiopulmonary process. The tip of the right-sided central line can be seen within the mid superior vena cava. Additional findings: Right-sided neural stimulator Remote left-sided rib fractures Abdomen and pelvis CT: A cause of sepsis is not seen. Additional findings: Left adrenal nodule, a benign lipid rich adrenal adenoma based on prior imaging. Prostate seed implants Churchill catheter Bilateral fat containing inguinal hernias CXR after central line is negative for pneumothorax or infiltrates. Labs 04/03/23 07:45 04/03/23 07:45 Labs: Laboratory Results - last 24 hr 04/03/23 04/03/23 04/03/23 07:45 07:55 08:04 WBC 21.9 H RBC 4.20 L Hgb 11.4 L Hct 34.6 L MCV 82.3 MCH 27.0 MCHC 32.8 RDW 16.4 H Plt Count 268 Neut % (Auto) 85.7 H Lymph % (Auto) 5.8 L [place] % (Auto) 7.8 Eos % (Auto) 0.1 L Baso % (Auto) 0.6 Neut # (Auto) 69866 H Lymph # (Auto) 1300 [place] # (Auto) 1700 H Eos # (Auto) 0 Baso # (Auto) 100 D-Dimer 817 H ABG Sample Site Right radial ABG pH 7.47 H ABG pCO2 24.8 L* ABG pO2 62 L ABG HCO3 18 L ABG Total CO2 19 L ABG O2 Saturation 93 L ABG Base Excess -5.0 L FiO2 21 Sodium 134 L Potassium 3.8 Chloride 101 Carbon Dioxide 18 L BUN 27 H Creatinine 1.18 Estimated GFR > 60 BUN/Creatinine Ratio 22.9 H Glucose 209 H Lactate 6.2 H* Calcium 10.3 H Magnesium 1.7 Total Bilirubin 1.1 AST 20 ALT 12 Alkaline Phosphatase 113 Troponin I 0.020 NT-Pro-B Natriuret Pep 700 H Total Protein 7.6 Albumin 3.9 Globulin 3.7 Albumin/Globulin Ratio 1.1 Lipase 32 Procalcitonin 2.54 H TSH 1.09 Urine Color Urine Appearance Urine pH Ur Specific [place] Urine Protein Urine Glucose (UA) Urine Ketones Urine Occult Blood Urine Nitrate Urine Bilirubin Urine Urobilinogen Ur Leukocyte Esterase Urine RBC Urine WBC Ur Squamous Epith Cells Urine Bacteria Ur Culture Indicated? Vol Urine Centrifuged Chlamy pneumoniae PCR Not detected Adenovirus (PCR) Not detected B.parapertussis DNA PCR Not detected Coronavirus OC43 (PCR) Not detected Coronavirus HKU1 (PCR) Not detected Coronavirus 229E (PCR) Not detected SARS-CoV-2 (PCR) Not detected Coronavirus NL63 (PCR) Not detected Human Metapneumovir PCR Not detected Influenza Type A (PCR) Not detected Influenza Type B (PCR) Not detected M. pneumoniae (PCR) Not detected Parainfluenza 1 (PCR) Not detected Parainfluenza 2 (PCR) Not detected Parainfluenza 3 (PCR) Not detected Parainfluenza 4 (PCR) Not detected RSV (PCR) Not detected Entero/Rhino (PCR) Not detected Blood Type Antibody Screen 04/03/23 04/03/23 04/03/23 08:20 08:30 10:15 WBC RBC Hgb Hct MCV MCH MCHC RDW Plt Count Neut % (Auto) Lymph % (Auto) [place] % (Auto) Eos % (Auto) Baso % (Auto) Neut # (Auto) Lymph # (Auto) [place] # (Auto) Eos # (Auto) Baso # (Auto) D-Dimer ABG Sample Site ABG pH ABG pCO2 ABG pO2 ABG HCO3 ABG Total CO2 ABG O2 Saturation ABG Base Excess FiO2 Sodium Potassium Chloride Carbon Dioxide BUN Creatinine Estimated GFR BUN/Creatinine Ratio Glucose Lactate 2.4 H Calcium Magnesium Total Bilirubin AST ALT Alkaline Phosphatase Troponin I NT-Pro-B Natriuret Pep Total Protein Albumin Globulin Albumin/Globulin Ratio Lipase Procalcitonin TSH Urine Color Yellow Urine Appearance Clear Urine pH 5.5 Ur Specific [place] 1.020 Urine Protein 1+ H Urine Glucose (UA) 2+ H Urine Ketones Negative Urine Occult Blood Trace-intact Urine Nitrate Negative Urine Bilirubin Negative Urine Urobilinogen 0.2 Ur Leukocyte Esterase 1+ H Urine RBC 1-5/hpf Urine WBC >100/hpf H Ur Squamous Epith Cells 01 Urine Bacteria Many (>30) H Ur Culture Indicated? Specimen cultured Vol Urine Centrifuged 10ml (spun) Chlamy pneumoniae PCR Adenovirus (PCR) B.parapertussis DNA PCR Coronavirus OC43 (PCR) Coronavirus HKU1 (PCR) Coronavirus 229E (PCR) SARS-CoV-2 (PCR) Coronavirus NL63 (PCR) Human Metapneumovir PCR Influenza Type A (PCR) Influenza Type B (PCR) M. pneumoniae (PCR) Parainfluenza 1 (PCR) Parainfluenza 2 (PCR) Parainfluenza 3 (PCR) Parainfluenza 4 (PCR) RSV (PCR) Entero/Rhino (PCR) Blood Type AB Positive Antibody Screen Negative Assessment & Plan Assessment & Plan narrative: 1. Severe sepsis with tachycardia (105), tachypnea (42), hypotension (78/50), and lactic acidosis (6.2) with a suspected source of urine tract infection, present on admission and improving. 2. Hypotension secondary to sepsis and improved with fluid bolus, present on admission and active. 3. Urinary tract infection presumed to be ESBL, present on admission and active. 4. Lactic acidosis, present on admission and improving. 5. Acute hypoxic respiratory failure, present on admission and improving. 6. Recurrent UTI, present on admission and active. 7. Parkinson's disease, present on admission and active. 8. Insulin-dependent diabetes 2, present on admission and active. 9. Hypertension, not present on admission or active. 10. Hyperlipidemia, present on admission and stable. 11. Possible acute on chronic diastolic heart failure with known EF of 65-70 % by echo in 12 of 23. PLAN: -patient was fluid resuscitated with the 30 milligram/kilogram bolus for sepsis and hypotension. The patient did not require pressors. He will be placed on a maintenance infusion of 150 per hour. -we will use pressor support if needed. -continue broad-spectrum antibiotics with ertapenem. -trend lactic acid, the 2nd was already improved at 2.4. -monitor renal function. -he is on high-flow at 40 L, 35%, primarily for comfort. Wean oxygen as able. -resume Parkinson's medications. Hold blood pressure medications. -urine culture. He is full resuscitation and would be intubated if needed. This is all confirmed at the time of admission. His is present, proxy. He is placed in the hospital under inpatient status, with an anticipated 2 midnights of medical necessity for hospital level surfaces. Quality MIPS - Admit I confirm the patient?s Advance Care Plan is present, Code status is documented, Surrogate decision maker is in patient?s record [If Yes, STOP here]: Yes MIPS - Meds 'Current medications' to include all prescriptions, [id number] products, herbals, cannabis/cannabidiol products, and vitamin/mineral/dietary (nutritional) supplements. I have utilized all available resources to obtain, update, or review the patient?s current medications. [If Yes, STOP here]: Yes
[2023-04-03] MEDS: HEPARIN 5,000 UNIT/ML VIAL 5000 UNIT SUBCUT ×2 (12:44→20:29)
[2023-04-03] MEDS: ASPIRIN EC 81 MG TABLET PO (13:22)
[2023-04-03] MEDS: CARBIDOPA-LEVODOPA 25/100 TABLET 3 EACH PO (13:22)
[2023-04-03] MEDS: TAMSULOSIN 0.4 MG CAPSULE 0.8 MG PO (13:22)
[2023-04-03 14:00] LABS: MRSA (Nasal) PCR Not Detected (Not Detect)
[2023-04-03] MEDS: GABAPENTIN 100 MG CAPSULE PO ×2 (14:09→20:29)
[2023-04-03] MEDS: SODIUM CHLORIDE 0.9% 1,000 ML 150 ML IV (14:33)
[2023-04-03] MEDS: ENTACAPONE 200 MG TABLET PO ×3 (14:43→20:30)
[2023-04-03] MEDS: INSULIN LISPRO 100 UNIT/ML 3ML VIAL SUBCUT (17:02)
[2023-04-03] MEDS: ACETAMINOPHEN 325 MG TABLET 650 MG PO (20:29)
[2023-04-03] MEDS: ATORVASTATIN 20 MG TABLET 10 MG PO (20:29)
[2023-04-03] MEDS: INSULIN GLARGINE 100 UNIT/ML 3ML PEN 20 UNIT SUBCUT (20:30)
[2023-04-03] MEDS: CARBIDOPA-LEVODOPA ER 50/200 TABLET 0.5 EACH PO (20:30)
[2023-04-03] MEDS: ALBUTEROL/IPRATROPIUM 3 ML AMPUL INH (21:22)
[2023-04-03] MEDS: TEMAZEPAM 15 MG CAPSULE PO (21:39)
[2023-04-03] MEDS: SODIUM CHLORIDE 0.9% 1,000 ML 100 ML IV (21:46)
[2023-04-04] VITALS (57 sets, daily range): BP systolic 115–215; BP diastolic 56–96; PULSE 72–103; RESP 30–81; TEMP 37.2–39.3; O2SAT 89–96
[2023-04-04] MEDS: ALBUTEROL/IPRATROPIUM 3 ML AMPUL INH ×2 (03:19→11:58)
[2023-04-04] MEDS: ACETAMINOPHEN 325 MG TABLET 650 MG PO ×3 (03:31→21:58)
[2023-04-04] MEDS: HYDROCODONE/ACET 5/325 TABLET 1 TAB PO ×3 (05:23→21:57)
[2023-04-04] MEDS: ENTACAPONE 200 MG TABLET PO ×5 (05:24→21:59)
[2023-04-04] MEDS: CARBIDOPA-LEVODOPA 25/100 TABLET 3 EACH PO ×2 (05:24→13:45)
[2023-04-04] MEDS: PANTOPRAZOLE DR 20 MG TABLET PO (05:26)
[2023-04-04] MEDS: SODIUM CHLORIDE 0.9% 1,000 ML 100 ML IV (08:01)
[2023-04-04] MEDS: GABAPENTIN 100 MG CAPSULE PO ×3 (08:55→20:27)
[2023-04-04] MEDS: ERTAPENEM 1 GM in SODIUM CHLORIDE 0.9% 100 ML IV (08:55)
[2023-04-04] MEDS: TAMSULOSIN 0.4 MG CAPSULE 0.8 MG PO (08:56)
[2023-04-04] MEDS: CARBIDOPA-LEVODOPA ER 50/200 TABLET 0.5 EACH PO ×2 (08:57→20:26)
[2023-04-04] MEDS: HEPARIN 5,000 UNIT/ML VIAL 5000 UNIT SUBCUT ×2 (08:57→20:27)
[2023-04-04] MEDS: ASPIRIN EC 81 MG TABLET PO (08:57)
[2023-04-04] MEDS: INSULIN GLARGINE 100 UNIT/ML 3ML PEN 20 UNIT SUBCUT ×2 (09:03→20:37)
[2023-04-04] MEDS: TIMOLOL 0.5% OPHTH 1 DROPS EYE-BOTH (09:05)
[2023-04-04] MEDS: LATANOPROST 0.005% OPHTH 2.5 ML 1 DROPS EYE-BOTH ×2 (09:08→20:32)
[2023-04-04] MEDS: FINASTERIDE 1 MG 1 EACH PO (09:12)
--- NOTE | 2023-04-04 10:22 | P.PN_ITS ---
Subjective Subjective Interval history: 73 M admitted with septic shock. He is no longer on levophed for pressure support. He has no complaints today other than weakness. He feels much better. BP is improved. Will stop IV fluids as well. Exam Vital Signs (past 8 hours): - 04/04/23 02:30 04/04/23 03:00 04/04/23 03:10 Temperature 99.1 F 99.3 F Pulse Rate 79 83 Respiratory Rate 44 H 47 H Blood Pressure 115/90 Pulse Oximetry 93 95 Oxygen Delivery Method 04/04/23 03:10 04/04/23 03:30 04/04/23 04:00 Temperature 99.5 F 100.0 F H 100.9 F H Pulse Rate 87 97 H 93 H Respiratory Rate 42 H 53 H Blood Pressure Pulse Oximetry 89 L 90 L 90 L Oxygen Delivery Method 04/04/23 04:30 04/04/23 05:00 04/04/23 05:30 Temperature 100.9 F H 100.8 F H 100.6 F H Pulse Rate 90 89 86 Respiratory Rate 57 H 73 H 61 H Blood Pressure Pulse Oximetry 89 L 91 92 Oxygen Delivery Method 04/04/23 05:34 04/04/23 05:34 04/04/23 06:00 Temperature 100.6 F H 100.2 F H Pulse Rate 85 79 Respiratory Rate 54 H 81 H Blood Pressure 149/70 H Pulse Oximetry 92 91 Oxygen Delivery Method 04/04/23 06:00 04/04/23 06:30 04/04/23 07:00 Temperature 100.0 F H 99.7 F H Pulse Rate 78 78 Respiratory Rate 79 H 63 H Blood Pressure 139/65 Pulse Oximetry 91 92 Oxygen Delivery Method 04/04/23 07:00 04/04/23 07:00 04/04/23 07:30 Temperature 99.5 F Pulse Rate 77 Respiratory Rate 53 H Blood Pressure 144/67 H Pulse Oximetry 92 Oxygen Delivery Method Nasal Cannula 04/04/23 08:00 04/04/23 08:00 04/04/23 08:30 Temperature 99.3 F 99.1 F Pulse Rate 77 75 Respiratory Rate 52 H 71 H Blood Pressure 145/75 H Pulse Oximetry 94 95 Oxygen Delivery Method 04/04/23 09:00 04/04/23 09:00 04/04/23 09:30 Temperature 99.3 F 99.5 F Pulse Rate 74 75 Respiratory Rate 70 H 50 H Blood Pressure 115/56 L Pulse Oximetry 96 95 Oxygen Delivery Method 04/04/23 10:00 04/04/23 10:00 Temperature 99.7 F H Pulse Rate 73 Respiratory Rate 54 H Blood Pressure 121/59 L Pulse Oximetry 95 Oxygen Delivery Method Oxygen Delivery Method Nasal Cannula Oxygen Flow Rate 6 Narrative Exam Narrative: General:? Patient is well developed and well nourished, in no distress at this time. Appears mildly acutely ill. HEENT:? Normocephalic, atraumatic, extraocular muscles intact, oral pharynx is clear and mucous membranes are moist. Neck: supple and symmetric, trachea is midline, no cervical adenopathy. Chest:? Normal AP diameter and contour without kyphoscoliosis, no tachypnea, equal chest rise bilaterally. Lungs:? CTA b/l no wheezing rhonchi or rales. Cardio:?RRR no m/r/g. Abdomen: S NT ND. Musculoskeletal:? Muscle strength and tone are equal within normal limits, no deformity. Extremities: No edema or joint effusions. No cyanosis or clubbing. Objective Labs 04/03/23 07:45 04/03/23 07:45 Labs: Laboratory Results - last 24 hr 04/03/23 04/03/23 10:15 11:50 Lactate 2.4 H Nasal Screen MRSA (PCR) Not detected [facility] Medical History History of urinary retention Hyperlipidemia History of nephrolithiasis Left nephrolithiasis Urinary retention Recurrent UTI History of prostate cancer Acne Shoulder pain Ankle pain Measles Chicken pox Prostate cancer (~2010) Anemia Benign prostatic hyperplasia GERD (gastroesophageal reflux disease) Hypertension Type 2 diabetes mellitus Parkinson's disease Congestive heart failure Surgical History History of prostate biopsy Anesthesia History of knee surgery Kidney stones Family History Father Stroke Hypertension Bacterial UTI Mother Cancer Sister Hypertension Aunt Diabetes mellitus Uncle Kidney stones Social History marital status: number of children: 3 household members: spouse, family and children Smoking Status: Former smoker alcohol intake: never Type(s) of exercise: walking frequency: 1-2 times per week Assessment & Plan Assessment & Plan narrative: 1. Septic shock with acute respiratory failure with hypoxia, hypotension with need for pressor secondary to acute cystitis with history of ESBL infection - continue ertapenem - required brief levophed administration, now improved - stop IV fluids - listed for regular floor today, can remove central line tomorrow if no further hypotension today. 2. Acute hypoxic respiratory failure, present on admission and resolved - likely due to sepsis response - antibiotics as noted above - now resolved. - CTA performed and was negative for PE 3. Parkinson's disease, present on admission and active. - continue home sinemet with no dosing adjustments necessary at this time 4. Insulin-dependent diabetes 2, present on admission and active. - continue glargine 20 U BID, sliding scale ordered as well. Adjust as needed will monitor sugars today and tomorrow. 9. Hypertension, not present on admission or active. - hold home antihypertensives in setting of septic shock. 10. Hyperlipidemia, present on admission and stable. - can continue home statin. 11. chronic diastolic heart failure with known EF of 65-70 % by echo in 12 of 23. - initial fluid status was complicated. Now that he is off supplemental O2 was more likely short of breath due to presenting sepsis. He is full resuscitation and would be intubated if needed. This is all confirmed at the time of admission. His is present, proxy. He is placed in the hospital under inpatient status, with an anticipated 2 midnights of medical necessity for hospital level surfaces. Dispo: Downgrade to acute care from ICU. I spent 35 minutes providing critical care management this patient. This excludes time spent in performing separately billed procedures. Quality VTE Deep Vein Thrombosis/Pulmonary Embolism Present on Admission: No
[2023-04-04] MEDS: INSULIN LISPRO 100 UNIT/ML 3ML VIAL SUBCUT (11:56)
--- NOTE | 2023-04-04 15:26 | CM.DANOTE ---
Patient is a 73 yo male who was admitted on 04/03/23 for Resp Distress. Pt has [facility] for insurance and his PCP is Dr. Ravindra Goldsmith. EMR was reviewed. Per MD, pt with hx of urinary retention and UTIs with ESBL and DM and CHF and Parkinsons. Pt admitted for UTI with severe sepsis and being treated with IV-Abx for likely ESBL and will need at least 7 days of IV-Abx if not longer. SW met bedside with pt and spouse and explained role and they confirm they still live at home in [place] and their Dtr and KATINA and family live nearby as well and supportive but not available 30/08. Pt does not typically use DME for ambulation and still drives but feels weaker and fatigued from the infection. Pt was on HHFNC but now tolerating room air. Pt confirms that almost a year ago he was admitted in May 2022 for similar UTI with sepsis and discharged to [facility] for IV-Abx and rehab and discharged home with HH from [facility]. SW discussed possible discharge options of SNF at d/c for IV-Abx needs and PT/OT vs pt making improvements in strength for mobility for plan of home with HH and outpt infusion clinic if IV-Abx only once a day. Pt states his preference would be home with outpt infusion depending on his progress and duration of IV-Abx. Pt and spouse confirm that if SNF needed they do NOT want [facility]. SW provided the SNF Choice list to review and they will wait to see how pt progresses tomorrow towards determining SNF vs HH with outpt infusion. Plan: SW to follow closely for eventual PT/OT orders for eval and further clarification on IV-Abx dosing and duration towards determining SNF vs HH with outpt infusion. RENATE Selby Discharge Planning/Care Management Advanced directive, confirm from FAMILY Start: 04/03/23 12:21 Freq: Q24H Status: Active Protocol: Document 04/03/23 12:21 CW (Rec: 04/03/23 12:38 CW [id number]) Advance Directive, confirm on record Time 12:38 Person contacted Copy received No Document 04/04/23 12:21 CW (Rec: 04/04/23 12:35 CW [id number]) Advance Directive, confirm on record Time 12:38 Person contacted Copy received No Time 12:35 Person contacted spouse Copy received No CM Discharge Assessment Start: 04/04/23 15:19 Freq: Status: Active Protocol: Document 04/04/23 15:20 BF (Rec: 04/04/23 15:25 BF [id number]) Discharge Planning Assessment Assigned Optical Mechanic Apprentice RENATE Carrillo DPOA/Assigned Designee Name Spouse Madhu Contact Information [phone] Advance Directives? No Advance Directives on File No History Provided By Patient,Significant Other, Medical Record Has Patient been admitted in last 30 No days? Prior Living Arrangements House Household Members spouse Type of transporation used prior to Drives own vehicle admit Independent with ADL's Yes Is patient alert and oriented? Yes Caregiver for Another No DME Already Rented / Owned Cane Patient/Family Preference [facility] Facility Comment SNF vs outpt infusion pending needs Barriers to Discharge No Comment Weakness, not at PLOF Discharge Plan [facility] Facility Community Services Physical Therapy,IV Therapy Transportation Arrangement Likely cabulance if SNF Referrals Initiated [facility] Medicare Choice List Provided Yes Medicare choice list reviewed on patient,family electronic tablet with SNF/HH Preference Do not want [facility] if SNF, reviewing SNF list Whiteboard Updated in Patient Room with Yes name and ext. # of Optical Mechanic Apprentice Review Status In Process Please Provide Date Initial DC 04/04/23 Assessment Was Performed Next Review Type Continued Stay Review
[2023-04-04] MEDS: ATORVASTATIN 20 MG TABLET 10 MG PO (20:26)
[2023-04-04] MEDS: SODIUM CHLORIDE 0.9% FLUSH 10 ML IV (20:33)
[2023-04-04] MEDS: TEMAZEPAM 15 MG CAPSULE PO (20:33)
[2023-04-04] MEDS: FUROSEMIDE 20 MG/2 ML VIAL IV (20:54)
--- NOTE | 2023-04-04 22:48 | DI.RAD.S_ITS ---
PROCEDURE: XR CHEST 1V INDICATIONS: SOB TECHNIQUE: One view of the chest was acquired. COMPARISON: [facility], CR, XR CHEST 1V, 04/03/2023, 8:52. [facility], CR, XR CHEST 1V, 04/03/2023, 7:54. FINDINGS: Surgical changes and devices: Right-sided central venous catheter. Right-sided stimulator is again seen. Lungs and pleura: Patchy bilateral airspace opacities. Mediastinum: Mediastinal contours appear normal. Heart size is normal. Bones and chest wall: No suspicious bony lesions. Overlying soft tissues appear unremarkable. IMPRESSION: Patchy bilateral airspace opacities, may represent edema or infection, recommend clinical correlation. Dictated by: Clay Silver M.D. on 04/04/2023 at 23:42 Approved by: Clay Silver M.D. on 04/04/2023 at 23:43
[2023-04-04] MEDS: HYDRALAZINE 20 MG/ML VIAL 10 MG IV (23:10)
[2023-04-04 23:32] LABS: pH ABG 7.53 (7.35-7.45)
[2023-04-04 23:33] LABS: Fractionated Inspired Oxygen 21; HCO3 ABG 20 mmol/L (23-27); Oxygen Saturation ABG 93 % (95-100); PO2 ABG 58 mmHg (80-100); TCO2 ABG 21 mmol/L (23-27)
[2023-04-04 23:34] LABS: Allen Test for ABG Passed? Yes, Passed; Blood Gas Collection Site Left Radial
[2023-04-04 23:44] LABS: NT-proBNP (BNP-Adult 18+) 2890 pg/mL (<125)
[2023-04-05] VITALS (60 sets, daily range): BP systolic 126–171; BP diastolic 58–81; PULSE 69–93; RESP 21–77; TEMP 37.1–38.6; O2SAT 92–99
[2023-04-05] MEDS: FUROSEMIDE 20 MG/2 ML VIAL IV (00:12)
--- NOTE | 2023-04-05 00:31 | PC.NURSE ---
Addendum entered by Brittaney Gillette R.N. 04/05/23 06:28: Restlessness decreased after 2nd dose of Lasix and patient was able to sleep. HR 70s, RR 20s, BP 126/68, T 99.9, [id number]% in am. Total UOP 4050ml. Original Note: Production Control Clerk Notes-Upon assessment at beginning of shift, patient was tachypneic RR 30s-40s, SpO2 88-94% on 2L NC, loud audible wheezing with coarse rhonchi/wheezes auscultated, ST 100, BP 215/91, urine concentrated in [place]. Patient was restless. This information reported to Hospitalist ventilation worker, Dr. Dela Cruz. 20mg IV Lasix x1 ordered and given. Patient put out 1500ml clear urine over the next 2 hours, but dyspnea and restless continued, BP remained elevated 191/88. Updated Hospitalist who ordered CXR, ABG, BNP, and Hydralazine prn. All complete, BP down to 169/75, SpO2 >93% on RA, wheezing decreased, less restless, baseline fidgeting with mild tremors to hands (Parkinsons). Another 20mg IV Lasix ordered, given. Patient also given Tylenol for fever 102.5 and [place] for back pain. Temp now 101.1. at bedside.
[2023-04-05 05:20] LABS: Add Manual Diff / Slide Review NO; Basophils Absolute Auto 100 /uL (0-100); Basophils Percent Auto 0.8 % (0-2); Eosinophils Absolute Auto 100 /uL (0-450); Eosinophils Percent Auto 1.4 % (2-4); Hematocrit 30.5 % (41-53); Hemoglobin 10.2 g/dL (13.5-17.5); Lymphocytes Absolute Auto 1200 /uL (1100-4500); Lymphocytes Percent Auto 12.4 % (25-40); Mean Corpuscular HGB Conc 33.4 % (30-36); Mean Corpuscular Hemoglobin 27.1 PG (26-34); Mean Corpuscular Volume 81.1 fL (80-100); Monocytes Absolute Auto 800 /uL (0-900); Monocytes Percent Auto 8.1 % (3-14); Neutrophils Absolute Auto 7500 /uL (1500-7000); Neutrophils Percent Auto 77.3 % (50-75); Platelet Count 237 X10^3/uL (150-400); Red Blood Cell Count 3.76 X10^6/uL (4.5-5.9); Red Cell Distribution Width 16.2 % (11.6-14.8); White Blood Cell Count 9.7 X10^3/uL (4.5-11.0)
[2023-04-05 05:35] LABS: Alanine Aminotransferase 8 IU/L (<50); Albumin 3.2 g/dL (3.5-5.0); Albumin Globulin Ratio 0.9 (1.0-2.8); Alkaline Phosphatase 93 U/L (38-126); Aspartate Aminotransferase 26 IU/L (17-59); BUN Creatinine Ratio 19.3 (6-22); Bilirubin Total 0.8 mg/dL (0.2-1.3); Blood Urea Nitrogen 21 mg/dL (9-20); Calcium 8.5 mg/dL (8.4-10.2); Carbon Dioxide 23 mmol/L (22-32); Chloride 107 mmol/L (98-107); Estimated Glomerular Filt Rate > 60 mL/min (>60); Globulin 3.6 g/dL (1.7-4.1); Glucose 95 mg/dL (80-110); HEMOLYSIS < 15 (0-50); Magnesium 1.8 mg/dL (1.6-2.3); Potassium 3.2 mmol/L (3.4-5.1); Sodium 135 mmol/L (137-145); Total Protein 6.8 g/dL (6.3-8.2)
[2023-04-05] MEDS: CARBIDOPA-LEVODOPA 25/100 TABLET 3 EACH PO ×2 (06:23→14:27)
[2023-04-05] MEDS: PANTOPRAZOLE DR 20 MG TABLET PO (06:23)
[2023-04-05] MEDS: ENTACAPONE 200 MG TABLET PO ×5 (06:23→20:45)
[2023-04-05] MEDS: INSULIN GLARGINE 100 UNIT/ML 3ML PEN 20 UNIT SUBCUT ×2 (08:43→20:47)
[2023-04-05] MEDS: ASPIRIN EC 81 MG TABLET PO (09:07)
[2023-04-05] MEDS: CARBIDOPA-LEVODOPA ER 50/200 TABLET 0.5 EACH PO ×2 (09:08→20:45)
[2023-04-05] MEDS: FINASTERIDE 1 MG 1 EACH PO (09:10)
[2023-04-05] MEDS: GABAPENTIN 100 MG CAPSULE PO ×3 (09:11→20:46)
[2023-04-05] MEDS: HEPARIN 5,000 UNIT/ML VIAL 5000 UNIT SUBCUT ×2 (09:11→20:44)
[2023-04-05] MEDS: LOSARTAN 50 MG TABLET PO (09:12)
[2023-04-05] MEDS: SODIUM CHLORIDE 0.9% FLUSH 10 ML IV ×3 (09:14→20:49)
[2023-04-05] MEDS: TAMSULOSIN 0.4 MG CAPSULE 0.8 MG PO (09:14)
[2023-04-05] MEDS: TIMOLOL 0.5% OPHTH 1 DROPS EYE-BOTH (09:15)
[2023-04-05] MEDS: ERTAPENEM 1 GM in SODIUM CHLORIDE 0.9% 100 ML IV (09:16)
[2023-04-05] MEDS: POTASSIUM CHLORIDE 20 MEQ TAB 40 MEQ PO ×2 (10:52→16:32)
[2023-04-05] MEDS: DOCUSATE 100 MG CAPSULE PO ×2 (11:48→20:44)
[2023-04-05] MEDS: polyethylene glycoL 3350 17 GM POWD.PACK PO (11:48)
[2023-04-05] MEDS: INSULIN LISPRO 100 UNIT/ML 3ML VIAL SUBCUT ×3 (11:49→20:48)
--- NOTE | 2023-04-05 12:26 | P.PN_ITS ---
Subjective Subjective Interval history: 73 M admitted with septic shock, overnight though was hypertensive and tachypnic, was given some IV lasix and now improved this AM. Continues to have fever, but overall fever curve improving. Today denies abdominal pain, nausea, vomiting, chest pain, or shortness of breath. Exam Vital Signs (past 8 hours): - 04/05/23 04:30 04/05/23 05:00 04/05/23 05:02 Temperature 99.3 F 99.3 F 99.3 F Pulse Rate 69 69 70 Respiratory Rate 71 H 70 H 55 H Blood Pressure Pulse Oximetry 94 95 95 Oxygen Delivery Method Oxygen Flow Rate 0 04/05/23 05:03 04/05/23 07:01 04/05/23 07:30 Temperature 99.9 F H 99.7 F H Pulse Rate 75 74 Respiratory Rate 68 H 70 H Blood Pressure 126/68 Pulse Oximetry 95 94 Oxygen Delivery Method Oxygen Flow Rate 04/05/23 08:00 04/05/23 08:00 04/05/23 08:00 Temperature 99.5 F Pulse Rate 75 Respiratory Rate 60 H Blood Pressure 144/66 H Pulse Oximetry 94 Oxygen Delivery Method Room Air Oxygen Flow Rate 04/05/23 08:30 04/05/23 09:00 04/05/23 09:12 Temperature 99.7 F H 99.7 F H Pulse Rate 76 72 71 Respiratory Rate 21 73 H Blood Pressure 144/66 H Pulse Oximetry 94 Oxygen Delivery Method Oxygen Flow Rate 04/05/23 09:30 04/05/23 10:00 Temperature 99.9 F H 100.0 F H Pulse Rate 71 Respiratory Rate 55 H Blood Pressure Pulse Oximetry Oxygen Delivery Method Oxygen Flow Rate Fraction of Inspired Oxygen 21 SaO2/FiO2 Ratio 457 Oxygen Delivery Method Room Air Oxygen Flow Rate 0 Narrative Exam Narrative: General:? Patient is well developed and well nourished, in no distress at this time. Appears mildly acutely ill. HEENT:? Normocephalic, atraumatic, extraocular muscles intact, oral pharynx is clear and mucous membranes are moist. Neck: supple and symmetric, trachea is midline, no cervical adenopathy. Chest:? Normal AP diameter and contour without kyphoscoliosis, no tachypnea, equal chest rise bilaterally. Lungs:? CTA b/l no wheezing rhonchi or rales. Cardio:?RRR no m/r/g. Abdomen: S NT ND. Musculoskeletal:? Muscle strength and tone are equal within normal limits, no deformity. Extremities: No edema or joint effusions. No cyanosis or clubbing. Objective Labs 04/05/23 05:00 04/05/23 05:00 Labs: Laboratory Results - last 24 hr 04/04/23 04/04/23 04/05/23 22:49 23:20 05:00 WBC 9.7 D RBC 3.76 L Hgb 10.2 L Hct 30.5 L MCV 81.1 MCH 27.1 MCHC 33.4 RDW 16.2 H Plt Count 237 Neut % (Auto) 77.3 H Lymph % (Auto) 12.4 L Williams % (Auto) 8.1 Eos % (Auto) 1.4 L Baso % (Auto) 0.8 Neut # (Auto) 7500 H Lymph # (Auto) 1200 Williams # (Auto) 800 Eos # (Auto) 100 Baso # (Auto) 100 ABG Sample Site Left radial ABG pH 7.53 H ABG pCO2 24.5 L* ABG pO2 58 L ABG HCO3 20 L ABG Total CO2 21 L ABG O2 Saturation 93 L ABG Base Excess -3.0 L FiO2 21 Sodium 135 L Potassium 3.2 L Chloride 107 Carbon Dioxide 23 BUN 21 H Creatinine 1.09 Estimated GFR > 60 BUN/Creatinine Ratio 19.3 Glucose 95 D Calcium 8.5 Magnesium 1.8 Total Bilirubin 0.8 AST 26 ALT 8 Alkaline Phosphatase 93 NT-Pro-B Natriuret Pep 2890 H Total Protein 6.8 Albumin 3.2 L Globulin 3.6 Albumin/Globulin Ratio 0.9 L PFSH Medical History History of urinary retention Hyperlipidemia History of nephrolithiasis Left nephrolithiasis Urinary retention Recurrent UTI History of prostate cancer Acne Shoulder pain Ankle pain Measles Chicken pox Prostate cancer (~2010) Anemia Benign prostatic hyperplasia GERD (gastroesophageal reflux disease) Hypertension Type 2 diabetes mellitus Parkinson's disease Congestive heart failure Surgical History History of prostate biopsy Anesthesia History of knee surgery Kidney stones Family History Father Stroke Hypertension Bacterial UTI Mother Cancer Sister Hypertension Aunt Diabetes mellitus Uncle Kidney stones Social History marital status: number of children: 3 household members: spouse Smoking Status: Former smoker alcohol intake: never Type(s) of exercise: walking frequency: 1-2 times per week Assessment & Plan Assessment & Plan narrative: 1. Septic shock with acute respiratory failure with hypoxia, hypotension with need for pressor secondary to acute cystitis with history of ESBL infection - continue ertapenem, urine cultures with likely ESBL E. coli. - required brief levophed administration, now improved - stop IV fluids. Discontinue central line today. - now resumed on home antihypertensive. 2. Acute hypoxic respiratory failure, present on admission and resolved - likely due to sepsis response, possible component of diastolic heart failure improved with furosemide overnight 04/04. - antibiotics as noted above - now resolved. - CTA performed and was negative for PE 3. Parkinson's disease, present on admission and active. - continue home sinemet with no dosing adjustments necessary at this time 4. Insulin-dependent diabetes 2, present on admission and active. - continue glargine 20 U BID, sliding scale ordered as well. Adjust as needed will monitor sugars today and tomorrow. 9. Hypertension, not present on admission or active. - have now restarted home losartan 10. Hyperlipidemia, present on admission and stable. - can continue home statin. 11. acute on chronic diastolic heart failure with known EF of 65-70 % - initial fluid status was complicated, given lasix 04/04 overnight with some improvement. - diurese as needed for now, not scheduled. He is full resuscitation and would be intubated if needed. This is all confirmed at the time of admission. His is present, proxy. Dispo: Likely home vs snf in 1-2 days, will need 7-10 days of carbapenem therapy. PT/OT ordered. Discussed with case management. Quality VTE Deep Vein Thrombosis/Pulmonary Embolism Present on Admission: No
--- NOTE | 2023-04-05 14:15 | PT.IIE ---
Current Diagnoses Sepsis, unspecified organism (04/03/23) Surgical History (Last Reviewed 04/03/23 @ 07:55 by Gisela Joe MD) Anesthesia History of knee surgery History of prostate biopsy Kidney stones Medical History (Last Reviewed 04/03/23 @ 07:55 by Gisela Joe MD) Acne Anemia Ankle pain Benign prostatic hyperplasia Chicken pox Congestive heart failure GERD (gastroesophageal reflux disease) History of nephrolithiasis History of prostate cancer History of urinary retention Hyperlipidemia Hypertension Left nephrolithiasis Measles Parkinson's disease Prostate cancer (~2010) Recurrent UTI Shoulder pain Type 2 diabetes mellitus Urinary retention Physical Therapy Inpatient Evaluation/Re-Eval M1 PT/OT-IP Prior Functional Status Start: 04/05/23 17:24 Freq: NEEDED Status: Active Protocol: Document 04/05/23 14:15 AB (Rec: 04/05/23 17:34 AB [id number]) Medical Review Prior Functional Status Medical History Reviewed Yes Communication able to make needs known Mobility and Gait pt stated that he was modified independent with all mobilities and ambulation using a 4WW Activities of Daily Living and IADL's per OT note: Pt states at home needing assist for LB dressing needs and showers. Social History Household Members spouse,family Living Arrangements House Number of Floors (Floors) One Floor Number of Stairs To Enter/Railing? 3 platform stteps to enter the house Home Environment Standard Height Toilet,Walk in Shower Home Equipment Front Wheel Walker,Four Wheel Walker,Straight Cane,Shower Seat with Backrest,Hand Held Shower,Rose Grader,Grab Bars In Shower Additional Social History Comment pt has his daughter, son-in- law and grandson to assist him at home pt has an adjustable bed wtih R rail M2 PT-IP Current Condition Start: 04/05/23 17:24 Freq: NEEDED Status: Active Protocol: Document 04/05/23 14:15 AB (Rec: 04/05/23 17:34 AB [id number]) Physical Therapy Current Condition Current Condition Evaluation Date 04/05/23 Treatment Diagnosis sepsis; difficulty in walking Onset Date 04/03/23 M3 PT-IP Subjective Start: 04/05/23 17:24 Freq: NEEDED Status: Active Protocol: Document 04/05/23 14:15 AB (Rec: 04/05/23 17:34 AB [id number]) Subjective Physical Therapy Visit Type Type Initial Evaluation Visit Start Time 14:15 Visit Stop Time 14:50 Number of PERSONNEL TECHNICIAN Visits 35 Physical Therapy Visit Comments Patient Comments agreeable to do PT Therapy Pain Assessment Pain Present Pain Present Denied Pain M4 PT-IP Mobility and Gait Start: 04/05/23 17:24 Freq: NEEDED Status: Active Protocol: Document 04/05/23 14:15 AB (Rec: 04/05/23 17:34 AB [id number]) PT-Bed Mobility Assessment Sit to Supine Sit to Supine Maximum Assistance,2 Person Assistance Scooting Scooting to Edge of Bed Dependent PT-Transfer Assessment Sit to and From Stand Sit to and from Stand Maximum Assistance,1 Person Assistance,2 Person Assistance ,Use of Upper Extremities Equipment Transfer Assistive Device Gait Belt,Front Wheeled Walker Orthotic/Prosthetic Devices or Brace: No Transfers Transfer Destination Chair Transfer Technique Stand Step Pivot Transfer Ability Level of Assist Maximum Assistance,2 Person Assistance,Use of Upper Extremities Comments Mobility Comments pt sitting on the chair and agreeable to do PT. obtained PLOF and home set up from pt. BP: 138/52 O2 sat at RA: 94- 96% and KS: 74 bpm. pt completed sit to stand max A x 1-2 and max cues. presents with posterior trunk lean and cues to push down on FWW for support. increase lateral leaning to L side also noted. pt ambulated ~ 5 ft using FWW max A x 1-2 and max cues and also with chair follow. pt sat back down. pt completed sit to stand from chair max A x 1-2 and max cues and step transfer to bed using fWW max A x 1-2 and max cues. pt requiring max A x 2 for sit to supine. positioned pt in bed total Ax 2. call light and table placed within reach. Gait Assessment Gait Gait Assistance Required: Maximum Assistance,1 Person Assist,2 Person Assist Distance (Feet) 5 Able to Maintain Weight Bearing Status Yes During Gait Assistive Devices Assistive Device Gait Belt,Front Wheeled Walker Orthotic/Prosthetic Devices or Brace: No Gait Deviations General Gait Pattern Antalgic,Ataxic,Decreased Stride Length,Decreased Feet Clearance,Step-to Gait Factors Limiting Gait Function Factors Limiting Gait Function Decreased Activity Tolerance, Decreased Strength,Difficulty Following Directions,Limited Range of Motion,Pain,Poor Balance,Poor Safety Awareness PT-Balance Assessment Sitting Balance and Reactions Static Sitting Balance Ability Poor Dynamic Sitting Balance Ability Poor Standing Balance and Reactions Static Standing Balance Ability Poor Dynamic Standing Balance Ability Poor Device Used FWW M5 PT-IP Objective Assessments Start: 04/05/23 17:24 Freq: NEEDED Status: Active Protocol: Document 04/05/23 14:15 AB (Rec: 04/05/23 17:34 AB [id number]) Orientation Orientation/Cognition Level of Alertness Alert Orientation Name,Place,Situation Safety Awareness Decreased Safety Awareness Gross Range of Motion Lower Extremity ROM Assessment Within Functional Limits Strength Lower Extremity Strength Assessment Bilaterally Impaired Hip 3+/5 Knee 3+/5 Muscle Tone Muscle Tone WNL Yes M6 PT-IP Treatment Start: 04/05/23 17:24 Freq: NEEDED Status: Active Protocol: Document 04/05/23 14:15 AB (Rec: 04/05/23 17:34 AB [id number]) Physical Therapy Treatment Education Education Provided Safety M7 PT-IP Assessment and Plan Start: 04/05/23 17:24 Freq: NEEDED Status: Active Protocol: Document 04/05/23 14:15 AB (Rec: 04/05/23 17:34 AB [id number]) PT Summary Assessment and Plan Potential Rehabilitation Potential Fair Status of Condition at Evaluation Evolving Summary Impairments Pain,ROM,Strength,Balance, Coordination,Sensation,Tone, Cognition,Bed Mobility, Transfers,Gait,Activity Tolerance Assessment Summary pt is a 73 y/o M who presented to the ED for SOB. pt admited for sepsis. pt also has dx PD affecting contributing to current level of assistance. pt requiring max A x 1-2 for tranasfers using fWW and only able to ambulate ~ 5 ft using FWW. pt required max A x 2 for bed mobility. pt will require SNF rehab to improve mobility. Goals Bed Mobility Goal Minimal Assistance Transfer Goal Minimal Assistance,Front Wheeled Walker Gait Goal Minimal Assistance,Front Wheel Walker Gait Distance 50 Other Goals improve bed mobility, transfers and ambulation using 4WW SBA 200 ft up/down 3 platform steps using 4WW SBA Days to Meet Goals 10 Frequency of Treatment Frequency Of Treatment Once a Day Treatment Plan Physical Therapy Treatment Plan Bed Mobility Training,Transfer Training,Gait Training, Therapeutic Exercise,Balance Retraining,Post Op Education, Discharge Planning,Hot or Cold Pack,Neuromuscular Re-ed, Coordination Retraining,Manual Therapy Recommendations To Nursing Amount of Assist Needed 2 Person Assist Discharge Recommendations PT Discharge Recommendations SNF Rehab Equipment Needed for Home Before FWW if pt goes home an not Discharge safe with 4WW Transportation Needs at Discharge Wheelchair/Cabulance
--- NOTE | 2023-04-05 14:15 | OT.IP.EVAL ---
Current Diagnoses Sepsis, unspecified organism (04/03/23) Past Medical History (Last Reviewed 04/03/23 @ 07:55 by Gisela Joe MD) Acne Anemia Ankle pain Benign prostatic hyperplasia Chicken pox Congestive heart failure GERD (gastroesophageal reflux disease) History of nephrolithiasis History of prostate cancer History of urinary retention Hyperlipidemia Hypertension Left nephrolithiasis Measles Parkinson's disease Prostate cancer (~2010) Recurrent UTI Shoulder pain Type 2 diabetes mellitus Urinary retention Surgical History (Last Reviewed 04/03/23 @ 07:55 by Gisela Joe MD) Anesthesia History of knee surgery History of prostate biopsy Kidney stones Occupational Therapy Inpatient Evaluation/Re-Eval M1 PT/OT-IP Prior Functional Status Start: 04/05/23 14:26 Freq: NEEDED Status: Active Protocol: Document 04/05/23 14:26 [facility] (Rec: 04/05/23 14:43 [facility] [id number]) Medical Review Prior Functional Status Medical History Reviewed Yes Communication Independent Mobility and Gait Pt states mostly uses the 4ww at home. Activities of Daily Living and IADL's Pt states at home needing assist for LB dressing needs and showers. Social History Household Members spouse Living Arrangements House Number of Floors (Floors) One Floor Number of Stairs To Enter/Railing? 3 wide platform steps per pt. Home Environment Standard Height Toilet,Walk in Shower Home Equipment Front Wheel Walker,Four Wheel Walker,Straight Cane,Hand Held Shower,Finger Buffs Assembler Additional Social History Comment Pt states has a fww somewhere and has an adjustable bed and get out of the left side. M2 OT-IP Current Condition Start: 04/05/23 14:26 Freq: Status: Active Protocol: Document 04/05/23 14:26 [facility] (Rec: 04/05/23 14:43 [facility] [id number]) Occupational Therapy Current Condition Current Condition Evaluation Date 04/05/23 Treatment Diagnosis Sepsis, UTI Diagnosis Onset Date 04/03/23 M3 OT- IP Subjective and Pain Start: 04/05/23 14:26 Freq: Status: Active Protocol: Document 04/05/23 14:26 [facility] (Rec: 04/05/23 14:43 [facility] [id number]) OT- Subjective Occupational Therapy Visit Type Type Initial Evaluation Visit Start Time 13:35 Visit Stop Time 14:15 Occupational Therapy Visit Comments Patient Comments Pt wanting to try to get up to use the BSC. Pt's nurse present to assist. Patient/Caregiver Goals Pt adamant to go home. OT Pain Assessment Pain When Pain Assessed At Rest Pain Present Pain Present Denied Pain M4 OT- IP ADL's Start: 04/05/23 14:26 Freq: Status: Active Protocol: Document 04/05/23 14:26 [facility] (Rec: 04/05/23 14:43 [facility] [id number]) OT [id number]-Pcawabf Comments OT Self-Feeding Comments Not at meal time. OT ADL-Grooming Comments OT Grooming Comments Pt able to wash his face after set-up and needing KRISTEN for completeness due to snarls in his hair in the back. OT ADL-Oral Care Comments Oral Care Comments Not performed. OT ADL-Dressing General Eval Lower Body Dressing Ability Maximum Assistance Areas Needing Assistance Underpants/Brief,Socks Comments OT Dressing Comments Assist for his socks and to get the brief over his feet. OT ADL-Toileting General Evaluation Toileting Ability Total Assistance Areas Needing Assistance Empty Catheter or Colostomy Comments OT Toileting Comments Pt not able to go at this time for bowel movement and has a cathater in place. OT ADL-Bathing General Evaluation Bathing Ability Maximal Assistance Areas Needing Assistance Wash/Dry Back,Wash/Dry Perineal Area,Wash/Dry Lower Extremities Comments OT Bathing Comments Pt able to assist to wash his face and arms and needing assist for the rest while sponging off from the BSC. M5 OT- IP IADL's Start: 04/05/23 14:26 Freq: Status: Active Protocol: Document 04/05/23 14:26 [facility] (Rec: 04/05/23 14:43 [facility] [id number]) OT-Instrumental Activities of Daily Living Deficits IADL Deficits Identified Deficits Home Safety Awareness Awareness of Need for Assistance at Home Good Awareness Medication Management Medication Management Caregiver Administers Money Management Money Management Comments Pt states pays the bills, but at this time would be best to have assist. Meal Preparation Meal Preparation Caregiver Provides Assist Property Condition Assessor Property Condition Assessor Caregiver Provides Assist M6 OT- IP Functional Cognition Start: 04/05/23 14:26 Freq: Status: Active Protocol: Document 04/05/23 14:26 [facility] (Rec: 04/05/23 14:43 [facility] [id number]) Cognitive Factors Limiting Selfcare Function Cognitive Ability Level of Alertness Alert Patient Orientation Name,Place Attention Span Ability Capable of Focused Attention, Capable of Sustained Attention Ability to Follow Commands Able to Follow One Step Commands with Increased Time, Able to Follow One Step Commands with Repetition Cognitive Comments Cognitive Assessment Comments Pt able to follow commands but difficulty to move his BLE during transfers. Pt has history of Parkinson's. Pt needing vc and hand over hand assist for transitions. OT- Vision and Hearing OT- Hearing Assessment OT- Hearing Assessment WFL OT- Vision Assessment Visual Acuity Glasses All The Time Visual Attentiveness WFL Occular Pursuits WFL Visual Convergence WFL Visual Torrez WFL M7 OT- IP Mobility and Balance Start: 04/05/23 14:26 Freq: Status: Active Protocol: Document 04/05/23 14:26 [facility] (Rec: 04/05/23 14:43 [facility] [id number]) OT-Transfer Assessment Sit to and From Stand Sit to and from Stand Moderate Assistance,2 Person Assistance Transfers Transfer Ability Maximum Assistance,2 Person Assistance Technique Transfer Destination Bedside Commode,Chair Transfer Technique Stand Step Pivot Devices Transfer Assistive Devices Gait Belt,Front Wheeled Walker Comments Mobility Comments MODA x2 to stand to FWW and MAXAX2 with fww to take a few step sideways to transfer. Pt needing assist for weight shifting and to move the FWW. Pt heavily has his weight on his heels. OT- Balance Assessment Sitting Balance and Reactions Static Sitting Balance Ability Fair Dynamic Sitting Balance Ability Fair Standing Balance and Reactions Static Standing Balance Ability Poor Dynamic Standing Balance Ability Poor M8 OT- IP Objective Assessments Start: 04/05/23 14:26 Freq: Status: Active Protocol: Document 04/05/23 14:26 [facility] (Rec: 04/05/23 14:43 [facility] [id number]) OT Gross Range of Motion Upper Extremity Range of Motion ROM Impairments grossly WFL OT Strength Comments Strength Comments RUE shoulder 4/5, otherwise 5/ 5 OT- Coordination Assessment Upper Extremity Finger to Nose Test Within Functional Limits OT-Muscle Tone Assessment Muscle Tone WNL Yes M9 OT- IP Assessment and Plan Start: 04/05/23 14:26 Freq: Status: Active Protocol: Document 04/05/23 14:26 [facility] (Rec: 04/05/23 14:43 [facility] [id number]) OT Summary Assessment and Plan Potential Rehabilitation Potential Good Analytic Complexity at Evaluation Moderate Summary OT Impairments Strength,Balance,Functional Mobility,Self-Feeding,Grooming ,Dressing,Toileting,Bathing, Toilet Transfers,Shower Transfers,Activity Tolerance Progress Towards Goals Slow Progress due to Medical Issues,Slow Progress due to Activity Tolerance Assessment Summary Pt MOD complexity and main barriers are decreased activity tolerance and now needing extensive two person assist for ADl and mobility needs. Pt is insistent of going home but aware that his current status is too great for his family to assist him at home. Pt will benefit from skilled rehab at this time. Goals Self-Feeding Goal Independent Grooming Goal Independent Dressing Goal Moderate Assistance Toileting Goal Standby Assistance Bathing Goal Minimal Assistance Toilet Transfer Goal Contact Guard Assistance Shower Transfer Goal Minimal Assistance Days to Meet Goals 25 Frequency of Treatment Frequency Of Treatment Once a Day Treatment Plan OT Treatment Plan ADL Training,Functional Mobility,Patient/Family Education,Discharge Planning Discharge Recommendations OT Discharge Recommendations SNF Rehab Transportation Needs at Discharge Wheelchair/Cabulance
--- NOTE | 2023-04-05 16:36 | CM.DPNOTE ---
DCP NOte RN TELE reviewed EMR. Per provider PN, likely rec 7-10 days carbapenem. Would need PICC or Midline. Per OT, rec SNF placement. RN TELE unable to meet with pt today due to triaging needs. Per previous CM note, pt preference not [facility] and is reviewing other options. Plan: CM team will f/u with pt tomorrow on SNF preference. CM team will follow closely. RENATE Romo
[2023-04-05] MEDS: FUROSEMIDE 40 MG/4 ML VIAL IV (18:19)
[2023-04-05] MEDS: TEMAZEPAM 15 MG CAPSULE PO (20:45)
[2023-04-05] MEDS: ATORVASTATIN 20 MG TABLET 10 MG PO (20:46)
[2023-04-05] MEDS: SENNOSIDES 8.6 MG TABLET PO (20:46)
[2023-04-05] MEDS: LATANOPROST 0.005% OPHTH 2.5 ML 1 DROPS EYE-BOTH (20:47)
[2023-04-06] VITALS (17 sets, daily range): BP systolic 126–146; BP diastolic 61–72; PULSE 64–71; RESP 18–21; TEMP 36.4–37.6; O2SAT 94–95
[2023-04-06 04:53] LABS: Add Manual Diff / Slide Review NO; Basophils Absolute Auto 100 /uL (0-100); Basophils Percent Auto 1.1 % (0-2); Eosinophils Absolute Auto 500 /uL (0-450); Eosinophils Percent Auto 5.9 % (2-4); Hematocrit 32.2 % (41-53); Hemoglobin 10.6 g/dL (13.5-17.5); Lymphocytes Absolute Auto 1300 /uL (1100-4500); Lymphocytes Percent Auto 17.5 % (25-40); Mean Corpuscular HGB Conc 32.8 % (30-36); Mean Corpuscular Volume 82.3 fL (80-100); Monocytes Absolute Auto 700 /uL (0-900); Monocytes Percent Auto 8.6 % (3-14); Neutrophils Absolute Auto 5100 /uL (1500-7000); Neutrophils Percent Auto 66.9 % (50-75); Platelet Count 249 X10^3/uL (150-400); Red Blood Cell Count 3.92 X10^6/uL (4.5-5.9); Red Cell Distribution Width 16.4 % (11.6-14.8); White Blood Cell Count 7.7 X10^3/uL (4.5-11.0)
[2023-04-06 05:18] LABS: Alanine Aminotransferase 9 IU/L (<50); Albumin 3.2 g/dL (3.5-5.0); Albumin Globulin Ratio 0.9 (1.0-2.8); Alkaline Phosphatase 90 U/L (38-126); Aspartate Aminotransferase 36 IU/L (17-59); BUN Creatinine Ratio 29.2 (6-22); Bilirubin Total 0.8 mg/dL (0.2-1.3); Blood Urea Nitrogen 26 mg/dL (9-20); Calcium 8.7 mg/dL (8.4-10.2); Carbon Dioxide 20 mmol/L (22-32); Chloride 109 mmol/L (98-107); Estimated Glomerular Filt Rate > 60 mL/min (>60); Globulin 3.7 g/dL (1.7-4.1); Glucose 159 mg/dL (80-110); HEMOLYSIS 27 (0-50); Sodium 135 mmol/L (137-145); Total Protein 6.9 g/dL (6.3-8.2)
[2023-04-06] MEDS: ENTACAPONE 200 MG TABLET PO ×3 (06:25→14:05)
[2023-04-06] MEDS: CARBIDOPA-LEVODOPA 25/100 TABLET 3 EACH PO ×2 (06:25→14:05)
[2023-04-06] MEDS: PANTOPRAZOLE DR 20 MG TABLET PO (06:25)
[2023-04-06 06:56] LABS: PCO2 ABG 24.5 mmHg (35-45)
[2023-04-06] MEDS: ERTAPENEM 1 GM in SODIUM CHLORIDE 0.9% 100 ML IV (08:04)
[2023-04-06] MEDS: TAMSULOSIN 0.4 MG CAPSULE 0.8 MG PO (08:04)
[2023-04-06] MEDS: HEPARIN 5,000 UNIT/ML VIAL 5000 UNIT SUBCUT (08:04)
[2023-04-06] MEDS: GABAPENTIN 100 MG CAPSULE PO ×2 (08:04→14:05)
[2023-04-06] MEDS: ASPIRIN EC 81 MG TABLET PO (08:04)
[2023-04-06] MEDS: CARBIDOPA-LEVODOPA ER 50/200 TABLET 0.5 EACH PO (08:04)
[2023-04-06] MEDS: LOSARTAN 50 MG TABLET PO (08:04)
[2023-04-06] MEDS: SODIUM CHLORIDE 0.9% FLUSH 10 ML IV (08:05)
[2023-04-06] MEDS: INSULIN GLARGINE 100 UNIT/ML 3ML PEN 20 UNIT SUBCUT (08:07)
[2023-04-06] MEDS: TIMOLOL 0.5% OPHTH 1 DROPS EYE-BOTH (08:09)
[2023-04-06] MEDS: INSULIN LISPRO 100 UNIT/ML 3ML VIAL SUBCUT ×2 (08:09→12:41)
[2023-04-06] MEDS: FINASTERIDE 1 MG 1 EACH PO (08:11)
--- NOTE | 2023-04-06 11:08 | PT.IPTN ---
Current Diagnoses Sepsis, unspecified organism (04/03/23) Physical Therapy Treatment Note M2 PT-IP Current Condition Start: 04/05/23 17:24 Freq: NEEDED Status: Active Protocol: Document 04/05/23 14:15 AB (Rec: 04/05/23 17:34 [facility] [id number]) Physical Therapy Current Condition Current Condition Evaluation Date 04/05/23 Treatment Diagnosis sepsis; difficulty in walking Onset Date 04/03/23 M3 PT-IP Subjective Start: 04/05/23 17:24 Freq: NEEDED Status: Active Protocol: Document 04/06/23 11:41 TS (Rec: 04/06/23 11:52 TS [id number]) Subjective Physical Therapy Visit Type Type Treatment Note Visit Start Time 11:08 Visit Stop Time 11:39 Number of COLD MILL SUPERVISOR Visits 1 Physical Therapy Visit Comments Patient Comments pt found resting in bed, reports feeling better today, is agreeable to PT. M4 PT-IP Mobility and Gait Start: 04/05/23 17:24 Freq: NEEDED Status: Active Protocol: Document 04/06/23 11:41 TS (Rec: 04/06/23 11:52 TS [id number]) PT-Bed Mobility Assessment Supine to Sit Supine to Sit Maximum Assistance,1 Person Assistance,Head of Bed Elevated,Bedrails Scooting Scooting to Edge of Bed Maximum Assistance PT-Transfer Assessment Sit to and From Stand Sit to and from Stand Moderate Assistance,1 Person Assistance Equipment Transfer Assistive Device Gait Belt,Front Wheeled Walker Orthotic/Prosthetic Devices or Brace: No Comments Mobility Comments Supine in bed, Spo2 95% on RA, Hr low 70's, BP unremarkable. Supine to sit HOB elevated MaxA x1 for uprighting trunk, cues provided for ushing through elbows and onto hands. He scooted to EOB MaxA with use of transfer pad and handrail assist. STS from bed with FWW ModA for posterior lean, pt cued for pushing form bed and not grabbing FWW. He ambulated in room Gifty with slow step to/shuffle gait, pt improves with cues for larger steps. Pt requested to sit in chair, OT came into room. Pt was left with OT and all needs met. Gait Assessment Gait Gait Assistance Required: Minimum Assistance,1 Person Assist Distance (Feet) 30 Able to Maintain Weight Bearing Status Yes During Gait Assistive Devices Assistive Device Gait Belt,Front Wheeled Walker Orthotic/Prosthetic Devices or Brace: No Gait Deviations General Gait Pattern Antalgic,Ataxic,Decreased Stride Length,Decreased Feet Clearance,Step-to Gait Factors Limiting Gait Function Factors Limiting Gait Function Decreased Activity Tolerance, Decreased Strength,Difficulty Following Directions,Limited Range of Motion,Pain,Poor Balance,Poor Safety Awareness Comments Gait Comments See mobility comments PT-Balance Assessment Sitting Balance and Reactions Static Sitting Balance Ability Fair Dynamic Sitting Balance Ability Fair Standing Balance and Reactions Static Standing Balance Ability Poor Dynamic Standing Balance Ability Poor Device Used FWW Comments Other Balance Tests/Deviations/Treatment Pt's standing balance is poor : and has some posterior leaning , balance improved slightly with cues. M5 PT-IP Objective Assessments Start: 04/05/23 17:24 Freq: NEEDED Status: Active Protocol: Document 04/05/23 14:15 AB (Rec: 04/05/23 17:34 AB [id number]) Orientation Orientation/Cognition Level of Alertness Alert Orientation Name,Place,Situation Safety Awareness Decreased Safety Awareness Gross Range of Motion Lower Extremity ROM Assessment Within Functional Limits Strength Lower Extremity Strength Assessment Bilaterally Impaired Hip 3+/5 Knee 3+/5 Muscle Tone Muscle Tone WNL Yes M6 PT-IP Treatment Start: 04/05/23 17:24 Freq: NEEDED Status: Active Protocol: Document 04/06/23 11:41 TS (Rec: 04/06/23 11:52 TS [id number]) Physical Therapy Treatment Education Education Provided Safety M7 PT-IP Assessment and Plan Start: 04/05/23 17:24 Freq: NEEDED Status: Active Protocol: Document 04/06/23 11:41 TS (Rec: 04/06/23 11:52 TS [id number]) PT Summary Assessment and Plan Potential Rehabilitation Potential Fair Summary Impairments Pain,ROM,Strength,Balance, Coordination,Sensation,Tone, Cognition,Bed Mobility, Transfers,Gait,Activity Tolerance Progress Towards Goals Progressing Toward Goals Assessment Summary Sarbjit is making progress with his mobility this session. He progressed his gait to ~30 with decreased assist. He continues to have poor balance and retroleans with statis standing and gait. He continues to require MaxA for bed mobility and max cue for sequencing. He is currently on RA with Spo2 95% throughout treatment. PT continued to recommend SNF rehab at this time to improve strength, functional mobility and activity tolerance. Goals Bed Mobility Goal Minimal Assistance Transfer Goal Minimal Assistance,Front Wheeled Walker Gait Goal Minimal Assistance,Front Wheel Walker Gait Distance 50 Other Goals improve bed mobility, transfers and ambulation using 4WW SBA 200 ft up/down 3 platform steps using 4WW SBA Days to Meet Goals 10 Treatment Plan Physical Therapy Treatment Plan Bed Mobility Training,Transfer Training,Gait Training, Therapeutic Exercise,Balance Retraining,Post Op Education, Discharge Planning,Hot or Cold Pack,Neuromuscular Re-ed, Coordination Retraining,Manual Therapy Recommendations To Nursing Amount of Assist Needed 2 Person Assist Discharge Recommendations PT Discharge Recommendations SNF Rehab Equipment Needed for Home Before FWW if pt goes home an not Discharge safe with 4WW Transportation Needs at Discharge Wheelchair/Cabulance
--- NOTE | 2023-04-06 12:10 | OT.IP.TRT ---
Current Diagnoses Sepsis, unspecified organism (04/03/23) Occupational Therapy Treatment Note M2 OT-IP Current Condition Start: 04/05/23 14:26 Freq: Status: Active Protocol: Document 04/05/23 14:26 [facility] (Rec: 04/05/23 14:43 [facility] [id number]) Occupational Therapy Current Condition Current Condition Evaluation Date 04/05/23 Treatment Diagnosis Sepsis, UTI Diagnosis Onset Date 04/03/23 M3 OT- IP Subjective and Pain Start: 04/05/23 14:26 Freq: Status: Active Protocol: Document 04/06/23 12:33 [facility] (Rec: 04/06/23 12:41 [facility] [id number]) OT- Subjective Occupational Therapy Visit Type Type Treatment Note Visit Start Time 11:31 Visit Stop Time 12:10 Occupational Therapy Visit Comments Patient Comments Pt wanting to use brush his teeth and use the toilet. Patient/Caregiver Goals To get better and agreed to go to skilled rehab now. OT Pain Assessment Pain When Pain Assessed At Rest Pain Present Pain Present Denied Pain M4 OT- IP ADL's Start: 04/05/23 14:26 Freq: Status: Active Protocol: Document 04/06/23 12:33 [facility] (Rec: 04/06/23 12:41 [facility] [id number]) OT [id number] Comments OT Self-Feeding Comments Not at meal time. OT ADL-Grooming General Evaluation Areas Needing Assistance Combing/Brushing Hair Comments OT Grooming Comments Able to do while standing with the FWW. OT ADL-Oral Care General Eval Oral Care Ability Independent OT ADL-Dressing General Eval Lower Body Dressing Ability Maximum Assistance Areas Needing Assistance Underpants/Brief,Socks OT ADL-Toileting General Evaluation Toileting Ability Total Assistance Comments OT Toileting Comments Pt needing assist to wipe and able to let nursing know pt feels has to have a bowel movement but feels not able to get it out. Able to assist pt to wipe. OT ADL-Bathing Comments OT Bathing Comments Not performed. M5 OT- IP IADL's Start: 04/05/23 14:26 Freq: Status: Active Protocol: Document 04/05/23 14:26 [facility] (Rec: 04/05/23 14:43 [facility] [id number]) OT-Instrumental Activities of Daily Living Deficits IADL Deficits Identified Deficits Home Safety Awareness Awareness of Need for Assistance at Home Good Awareness Medication Management Medication Management Caregiver Administers Money Management Money Management Comments Pt states pays the bills, but at this time would be best to have assist. Meal Preparation Meal Preparation Caregiver Provides Assist Recreational Assistant Recreational Assistant Caregiver Provides Assist M6 OT- IP Functional Cognition Start: 04/05/23 14:26 Freq: Status: Active Protocol: Document 04/06/23 12:33 [facility] (Rec: 04/06/23 12:41 [facility] [id number]) Cognitive Factors Limiting Selfcare Function Cognitive Comments Cognitive Assessment Comments Pt able to follow commands but needing increased time and tactile cues during mobility needs. M7 OT- IP Mobility and Balance Start: 04/05/23 14:26 Freq: Status: Active Protocol: Document 04/06/23 12:33 [facility] (Rec: 04/06/23 12:41 [facility] [id number]) OT-Transfer Assessment Sit to and From Stand Sit to and from Stand Moderate Assistance,1 Person Assistance Transfers Transfer Ability Moderate Assistance,1 Person Assistance Technique Transfer Destination Chair,Toilet Transfer Technique Stand Step Pivot Devices Transfer Assistive Devices Gait Belt,Front Wheeled Walker Comments Mobility Comments MODA x1 to stand to FWW and assist for balance, weight shifting and to guide the FWW. Pt noted at times left foot tends to be on his toes and needing cues and assist to keep his foot flat. OT- Balance Assessment Sitting Balance and Reactions Static Sitting Balance Ability Good Dynamic Sitting Balance Ability Fair Standing Balance and Reactions Static Standing Balance Ability Fair Dynamic Standing Balance Ability Poor M8 OT- IP Objective Assessments Start: 04/05/23 14:26 Freq: Status: Active Protocol: Document 04/05/23 14:26 [facility] (Rec: 04/05/23 14:43 [facility] [id number]) OT Gross Range of Motion Upper Extremity Range of Motion ROM Impairments grossly WFL OT Strength Comments Strength Comments RUE shoulder 4/5, otherwise 5/ 5 OT- Coordination Assessment Upper Extremity Finger to Nose Test Within Functional Limits OT-Muscle Tone Assessment Muscle Tone WNL Yes M9 OT- IP Assessment and Plan Start: 04/05/23 14:26 Freq: Status: Active Protocol: Document 04/06/23 12:33 [facility] (Rec: 04/06/23 12:41 [facility] [id number]) OT Summary Assessment and Plan Potential Rehabilitation Potential Good Analytic Complexity at Evaluation Moderate Summary OT Impairments Strength,Balance,Functional Mobility,Self-Feeding,Grooming ,Dressing,Toileting,Bathing, Toilet Transfers,Shower Transfers,Activity Tolerance Progress Towards Goals Progressing Toward Goals Assessment Summary Pt now able needing one person assist for ADl and mobility needs. Pt needing lots of tactile and verbal cues when using his FWW to walk and to be able to reach back prior to sitting down. Pt looking to go to skilled rehab today. Goals Self-Feeding Goal Independent Grooming Goal Independent Dressing Goal Moderate Assistance Toileting Goal Standby Assistance Bathing Goal Minimal Assistance Toilet Transfer Goal Contact Guard Assistance Shower Transfer Goal Minimal Assistance Days to Meet Goals 20 Frequency of Treatment Frequency Of Treatment Once a Day Treatment Plan OT Treatment Plan ADL Training,Functional Mobility,Patient/Family Education,Discharge Planning Discharge Recommendations OT Discharge Recommendations SNF Rehab Transportation Needs at Discharge Wheelchair/Cabulance
--- NOTE | 2023-04-06 14:02 | CM.DPNOTE ---
Addendum entered by RENATE Romo 04/06/23 17:03: WELT TRIMMING MACHINE OPERATOR emailed dc summary to Elsie. [facility] Original Note: DCP Note WELT TRIMMING MACHINE OPERATOR reviewed EMR. Per hospitalist, pt scheduled to get midline today and then can DC to SNF later in afternoon. Pt will need 2weeks IV ertapenem 1g Q24 for two weeks. Pt had dose at 8am today. WELT TRIMMING MACHINE OPERATOR met with pt and spouse in room. Pt preference is either [facility] or [facility]. NATHAN Perez kindly agreed to send clinicals to both. WELT TRIMMING MACHINE OPERATOR lvm with Stacey at . WELT TRIMMING MACHINE OPERATOR spoke with Melissa at [facility]. After review agreed to accept. transport arranged for 2pm today. WELT TRIMMING MACHINE OPERATOR updated RN/provider. WELT TRIMMING MACHINE OPERATOR gave RN report number. NATHAN Perez kindly agreed to update OPERATIONS DEVELOPER. WELT TRIMMING MACHINE OPERATOR updated pt in room. Requested to call his or son and update them. WELT TRIMMING MACHINE OPERATOR lvm with spouse. WELT TRIMMING MACHINE OPERATOR spoke with son Ed. Ed in agreement with plan. WELT TRIMMING MACHINE OPERATOR answered questions to best of ability. WELT TRIMMING MACHINE OPERATOR completed PASRR. NATHAN Perez kindly agreed to email dc clinicals/med list/PASRR to [facility]. NATHAN Perez placed med list and PASRR in chart. Plan: pt to dc today to [facility] at 2pm via facility transport. CM team will continue to follow as needed. RENATE Romo
--- NOTE | 2023-04-06 16:25 | PM.DS.1 ---
History of Present Illness History of Present Illness Chief complaint: Resp Distress Narrative: The patient is a 73-year-old gentleman who presented to the emergency department with acute dyspnea and hypotension. He has a history of chronic urine retention and recurrent UTI with some history of ESBL. The patient was said to have a history of congestive heart failure as well. In addition he has diabetes mellitus which is insulin-dependent, hyperlipidemia, hypertension, and Parkinson's disease. Upon arrival the patient was in respiratory distress and improved with oxygen. He was hypotensive and improved with a fluid bolus. A right CVL was placed for possible pressors. The patient was given Zosyn initially and then ertapenem after his history of ESBL was discovered. The patient was recently treated for urine tract infection, and denies recent hematuria. He also denies chest pain or palpitations. He did have an elevated BNP and procalcitonin. A CT angiogram was negative for PE or other acute cardiac process. A CT of the abdomen and pelvis was negative for acute process as well. Upon arrival to the CCU with pressure was normalized in his lactic acidosis which was significant and had began to normalize. Upon arrival he denied any abdominal pain, recent URI symptoms including rhinorrhea or cough. He also denied recent diarrhea, nausea or vomiting. No recent fevers or chills. His initial blood sugar was less than 200, and he was doing well with a high-flow oxygen setting of 40 L and 35% FiO2. He was breathing comfortably and was not laboring. Discharge Providers Provider Date of admission: 04/03/23 09:57 Discharge Date: 04/06/23 Primary care physician: Ravindra Goldsmith DO Consults: 04/05/23 09:29 Consult to Occupational Therapy Evaluate & Treat Comment: Physician Instructions: Evaluate and treat Consult to Physical Therapy Evaluate & Treat Comment: Physician Instructions: Evaluate and Treat Discharge provider: Ricardo Skaggs DO Summary Hospital Course Discharge Diagnosis: 1. Septic shock with acute respiratory failure with hypoxia, hypotension with need for pressor secondary to acute cystitis with history of ESBL infection, sepsis now resolved - continue ertapenem, urine cultures with ESBL E. coli. - required brief levophed administration, now resolved - stop IV fluids. Discontinue central line. - now resumed on home antihypertensive. - midline placed for x1 weeks of ertapenem 1g daily until 04/11/23 to finish 10 days of treatment 2. Acute hypoxic respiratory failure, present on admission and resolved - likely due to sepsis response, possible component of diastolic heart failure improved with furosemide overnight 04/04. - antibiotics as noted above - now resolved. - CTA performed and was negative for PE 3. Parkinson's disease, present on admission and active. - continue home sinemet with no dosing adjustments necessary at this time 4. Insulin-dependent diabetes 2, present on admission and active. - continue glargine 20 U BID, sliding scale ordered as well. Adjust as needed will monitor sugars today and tomorrow. - normally on 60u BID, discharged on 40u BID at SNF 9. Hypertension, not present on admission or active. - have now restarted home losartan 10. Hyperlipidemia, present on admission and stable. - can continue home statin. 11. acute on chronic diastolic heart failure with known EF of 65-70 % - initial fluid status was complicated, given lasix 04/04 overnight with some improvement. - diurese as needed for now, not scheduled. He is full resuscitation and would be intubated if needed. This is all confirmed at the time of admission. His is present, proxy. Hospital Course: Admitted for septic shock from pyelonephritis. UA with >100k WBC and urine culture grew ESBL E. coli. Given ertapenem 1g daily. Initially required pressors but weaned off quickly. PT rec SNF so patient had midline placed and he was discharged on 1 more week of IV ertapenem to finish 10 days of abx treatment for pyelo. Exam Vital Signs (past 8 hours): - 04/06/23 12:00 Temperature 97.6 F Pulse Rate 71 Respiratory Rate 18 Blood Pressure 126/61 Pulse Oximetry 94 Oxygen Flow Rate 0 Fraction of Inspired Oxygen 21 SaO2/FiO2 Ratio 457 Oxygen Delivery Method Room Air Oxygen Flow Rate 0 Narrative Exam Narrative: General:? Patient is well developed and well nourished, in no distress at this time. Appears mildly acutely ill. HEENT:? Normocephalic, atraumatic, extraocular muscles intact, oral pharynx is clear and mucous membranes are moist. Neck: supple and symmetric, trachea is midline, no cervical adenopathy. Chest:? Normal AP diameter and contour without kyphoscoliosis, no tachypnea, equal chest rise bilaterally. Lungs:? CTA b/l no wheezing rhonchi or rales. Cardio:?RRR no m/r/g. Abdomen: S NT ND. Musculoskeletal:? Muscle strength and tone are equal within normal limits, no deformity. Extremities: No edema or joint effusions. No cyanosis or clubbing. Objective Labs 04/06/23 04:25 04/06/23 04:25 Labs: Laboratory Results - last 24 hr 04/04/23 04/06/23 22:49 04:25 WBC 7.7 RBC 3.92 L Hgb 10.6 L Hct 32.2 L MCV 82.3 MCH 27.0 MCHC 32.8 RDW 16.4 H Plt Count 249 Neut % (Auto) 66.9 Lymph % (Auto) 17.5 L [place] % (Auto) 8.6 Eos % (Auto) 5.9 H Baso % (Auto) 1.1 Neut # (Auto) 5100 Lymph # (Auto) 1300 [place] # (Auto) 700 Eos # (Auto) 500 H Baso # (Auto) 100 ABG pCO2 24.5 L* Sodium 135 L Potassium 4.0 Chloride 109 H Carbon Dioxide 20 L BUN 26 H Creatinine 0.89 Estimated GFR > 60 BUN/Creatinine Ratio 29.2 H Glucose 159 H Calcium 8.7 Magnesium 2.0 Total Bilirubin 0.8 AST 36 ALT 9 Alkaline Phosphatase 90 Total Protein 6.9 Albumin 3.2 L Globulin 3.7 Albumin/Globulin Ratio 0.9 L PFSH Medical History History of urinary retention Hyperlipidemia History of nephrolithiasis Left nephrolithiasis Urinary retention Recurrent UTI History of prostate cancer Acne Shoulder pain Ankle pain Measles Chicken pox Prostate cancer (~2010) Anemia Benign prostatic hyperplasia GERD (gastroesophageal reflux disease) Hypertension Type 2 diabetes mellitus Parkinson's disease Congestive heart failure Surgical History History of prostate biopsy Anesthesia History of knee surgery Kidney stones Family History Father Stroke Hypertension Bacterial UTI Mother Cancer Sister Hypertension Aunt Diabetes mellitus Uncle Kidney stones Social History marital status: number of children: 3 household members: spouse Smoking Status: Former smoker alcohol intake: never Type(s) of exercise: walking frequency: 1-2 times per week Discharge Plan Discharge Plan Patient Disposition: SNF Discharge orders & Medications Prescriptions: New insulin glargine [Lantus Solostar U-100 Insulin] 100 unit/mL (3 mL) Insulin Pen 40 unit SUBCUT BID Qty: 15 0RF hydrocodone-acetaminophen 5-325 mg Tablet 1 tab PO Q4HR PRN (Reason: Pain, Moderate (4-6)) Qty: 30 0RF temazepam 15 mg Capsule 15 mg PO BEDTIME PRN (Reason: Sleep) Qty: 30 0RF Continued atorvastatin 10 mg tablet 10 mg PO DAILY Qty: 90 3RF metformin 850 mg tablet 850 mg PO TID Qty: 240 1RF losartan 50 mg tablet 50 mg PO DAILY Qty: 90 1RF finasteride 1 mg tablet 1 mg PO DAILY Qty: 90 1RF omeprazole 20 mg capsule,delayed release(DR/EC) 20 mg PO DAILY Qty: 90 1RF potassium citrate 10 mEq (1,080 mg) tablet extended release 10 meq PO BID Qty: 180 1RF tamsulosin 0.4 mg capsule 0.8 mg PO DAILY Qty: 180 1RF gabapentin 100 mg capsule 100 mg PO 3XD Qty: 270 1RF (DME) pen needle, diabetic [BD Reshma 2nd Gen Pen Needle] 32 gauge x 5/32 needle See Rx Instructions .ROUTE .MEDSUPPLY Qty: 100 3RF Rx Instructions: As directed insulin glargine [Lantus Solostar U-100 Insulin] 100 unit/mL (3 mL) insulin pen 60 unit SUBCUT BID Qty: 15 4RF Rx Instructions: 60 in morning, 60 units at bedtime (DME) lancets [Micro Thin Lancets] 33 gauge misc See Rx Instructions .ROUTE .MEDSUPPLY Qty: 100 Patient Comments: USE TO TEST BLOOD SUGAR THREE TIMES A DAY Rx Instructions: As directed selegiline HCl 5 mg tablet 5 mg PO BID Rx Instructions: administer with breakfast and lunch aspirin [Adult Low Dose Aspirin] 81 mg tablet,delayed release (DR/EC) 81 mg PO DAILY timolol maleate 0.5 % drops 1 drp ophthalmic (eye) DAILY latanoprost 0.005 % drops 1 drp DAILY carbidopa-levodopa 25-100 mg tablet extended release 1 tab PO BID acetaminophen [Acetaminophen Extra Strength] 500 mg Tablet 500 mg PO Q6H PRN (Reason: Pain (Scale Score 4-6)) cranberry 400 mg Capsule 400 mg PO DAILY Rx Instructions: administer with a meal carbidopa-levodopa 25-100 mg tablet See Rx Instructions .ROUTE .COMPLEX Rx Instructions: take 3 tabs at 0600, 2.5 tabs at 1000, 3 tabs at 1400, 2.5 tabs at 1800, 2.5 tabs at 2200 Follow up/Referrals: Ravindra Goldsmith, [Primary Care Provider] - 2 Weeks Visit Report/Discharge Packet Stand Alone Forms: Patient Portal/API Discharge Data Primary Care Provider: Ravindra Goldsmith Quality VTE Deep Vein Thrombosis/Pulmonary Embolism Present on Admission: No
== END 2023-04-06 14:15 | DRG 871 ==
LOC: ED 09:03 → AC 09:58 → ICU 10:49
PROVIDERS: Internal Medicine; Admitting Provider Hospitalist; Emergency Provider Emergency Medicine; PCP Family Medicine; Referring Provider Emergency Medicine; Visit Provider Hospitalist
DX: A41.9 Sepsis, unspecified organism (principal); I50.33 Acute on chronic diastolic (congestive) heart failure; J96.01 Acute respiratory failure with hypoxia; R65.21 Severe sepsis with septic shock; E87.20 Acidosis, unspecified; N30.00 Acute cystitis without hematuria; G20.A1 Parkinson's disease without dyskinesia, without mention of fluctuations; E11.9 Type 2 diabetes mellitus without complications; I11.0 Hypertensive heart disease with heart failure; E78.5 Hyperlipidemia, unspecified; B96.20 Unspecified Escherichia coli [E. coli] as the cause of diseases classified elsewhere; K21.9 Gastro-esophageal reflux disease without esophagitis; N40.0 Benign prostatic hyperplasia without lower urinary tract symptoms; Z87.891 Personal history of nicotine dependence; Z79.4 Long term (current) use of insulin; Z79.84 Long term (current) use of oral hypoglycemic drugs
CPT/HCPCS: 36415; 36592; 36600; 71045; 71275; 74177; 80053; 81001; 82805; 82962; 83605; 83690; 83735; 83880; 84145; 84443; 84484; 85025; 85379; 86850; 86900; 86901; 87040; 87077; 87086; 87186; 87633; 87797; 93005; 94640; 96365; 96367; 96368; 96375; 97116; 97162; 97166; 97530; 97535; 99285; 99291; 99292; J0136; J0360; J0692; J1335; J1644; J1815; J1940; J2543; Q9967

== ENCOUNTER 2023-05-05 14:12 | Emergency (ER) | payer MEDICARE, OTHER, SELFPAY ==
[2022-12-27 11:39] VITALS: PULSE 112; RESP 40; O2SAT 95
[2023-04-03 12:13] VITALS: BMI 36.1
[2023-05-05 14:22] VITALS: BP 112/58; PULSE 84; RESP 12; TEMP 36.6; O2SAT 97; BMI 33.7
--- NOTE | 2023-05-05 14:44 | ED_ITS ---
HPI - Recheck/Abnormal Lab/Rx <Kadi Triplett PA-C - Last Filed: 05/05/23 15:14> General Chief Complaint: Recheck/Abnormal Lab/Rx Stated Complaint: Catheter trouble Time Seen by Provider: 05/05/23 14:37 Source: patient Mode of arrival: Ambulatory History of Present Illness HPI narrative: 73-year-old male with a history of CHF, prostate cancer, UTIs, Parkinson's, hypertension, DM, presents today for problems with his urinary catheter leg bag. He had a new 1 replaced at [facility] not too long ago but the urine I guess was not draining so much so the took it upon herself to try and super glue the tubing to the leg bag itself which was strapped around his upper thigh. He is denying any pain, any urinary symptoms, fever, flank pain, blood in his urine he is mainly here just to have his catheter looked at and hopefully readjusted. All other systems reviewed and are negative. Chart review reveals UTI treatment here on April 03 2023. Related Data Home Medications Medication Instructions Recorded Confirmed lancets 33 gauge (Micro Thin #100 ea 04/13/22 04/03/23 Lancets) selegiline HCl 5 mg tablet 5 mg PO BID 04/13/22 04/03/23 latanoprost 0.005 % eye drops 1 drp DAILY 06/02/22 04/03/23 timolol maleate 0.5 % eye drops 1 drp ophthalmic (eye) DAILY 06/02/22 04/03/23 aspirin 81 mg tablet,delayed 81 mg PO DAILY 10/21/22 04/03/23 release (Adult Low Dose Aspirin) acetaminophen 500 mg tablet 500 mg PO Q6H PRN Pain (Scale 04/03/23 04/03/23 (Acetaminophen Extra Strength) Score 4-6) carbidopa 25 mg-levodopa 100 mg See Rx Instructions .Route .COMPLEX 04/03/23 04/03/23 tablet carbidopa ER 25 mg-levodopa 100 mg 1 tab PO BID 04/03/23 04/03/23 tablet,extended release cranberry 400 mg capsule 400 mg PO DAILY 04/03/23 04/03/23 Previous Rx's Medication Instructions Recorded atorvastatin 10 mg tablet 10 mg PO DAILY #90 tabs 12/14/22 metformin 850 mg tablet 850 mg PO TID #240 tabs 01/03/23 losartan 50 mg tablet 50 mg PO DAILY #90 tabs 01/11/23 finasteride 1 mg tablet 1 mg PO DAILY #90 tabs 01/17/23 omeprazole 20 mg capsule,delayed 20 mg PO DAILY #90 caps 01/17/23 release potassium citrate 10 mEq (1,080 10 meq PO BID #180 tabs 01/17/23 mg) tablet,extended release tamsulosin 0.4 mg capsule 0.8 mg (2 x 0.4 mg) PO DAILY #180 01/17/23 caps gabapentin 100 mg capsule 100 mg PO 3XD #270 caps 02/01/23 pen needle, diabetic 32 gauge x #100 ea 03/08/23 (BD Reshma 2nd Gen Pen Needle) insulin glargine 100 unit/mL (3 60 unit (0.6 mL) SUBCUT BID #15 mL 04/04/23 mL) subcutaneous pen (Lantus Solostar U-100 Insulin) hydrocodone 5 mg-acetaminophen 325 1 tab PO Q4HR PRN Pain, Moderate 04/06/23 mg tablet (4-6) #30 tabs insulin glargine 100 unit/mL (3 40 unit (0.4 mL) SUBCUT BID #15 mL 04/06/23 mL) subcutaneous pen (Lantus Solostar U-100 Insulin) temazepam 15 mg capsule 15 mg PO BEDTIME PRN Sleep #30 caps 04/06/23 Allergies Allergy/AdvReac Type Severity Reaction Status Date / Time No Known Drug Allergies Allergy Verified 05/05/23 14:25 Review of Systems <Kadi Triplett PA-C - Last Filed: 05/05/23 15:14> Review of Systems Narrative: All other systems are reviewed and are negative. Patient History <Kadi Triplett PA-C - Last Filed: 05/05/23 15:14> Medical History History of urinary retention Hyperlipidemia History of nephrolithiasis Left nephrolithiasis Urinary retention Recurrent UTI History of prostate cancer Acne Shoulder pain Ankle pain Measles Chicken pox Prostate cancer (~2010) Anemia Benign prostatic hyperplasia GERD (gastroesophageal reflux disease) Hypertension Type 2 diabetes mellitus Parkinson's disease Congestive heart failure Surgical History History of prostate biopsy Anesthesia History of knee surgery Kidney stones Family History Father Stroke Hypertension Bacterial UTI Mother Cancer Sister Hypertension Aunt Diabetes mellitus Uncle Kidney stones Social History marital status: number of children: 3 household members: spouse Smoking Status: Former smoker alcohol intake: never Type(s) of exercise: walking frequency: 1-2 times per week Smoking Status: Former smoker tobacco type: cigarettes alcohol intake frequency: 0-2 drinks per day Substance Use Type: does not use Exam <Kadi Triplett PA-C - Last Filed: 05/05/23 15:14> Initial Vital Signs Initial Vital Signs: Vital Signs Temperature 98 F 05/05/23 14:22 Pulse Rate 84 05/05/23 14:22 Respiratory Rate 12 05/05/23 14:22 Blood Pressure 112/58 L 05/05/23 14:22 Pulse Oximetry 97 05/05/23 14:22 Oxygen Delivery Method Room Air 05/05/23 14:22 Const Other: Seated in wheelchair, no distress, noticeable full body tremor, but he is speaking clearly and is without complaint. No distress. Other: Abdomen is nondistended, no suprapubic tenderness. No discoloration. Skin is of normal color, turgor and temperature. No lesions. Churchill catheter is in place, urethral meatus appears without inflammation and no leakage around the meatus and catheter tubing. The leg bag tubing was kinked readjusted by the RN and the urine appears to be flowing. It is pale yellow. No cloudiness. Leg bag emptied and it is now filling again. Back/Spine/Pelvis Other: No CVA tenderness. <Magalys Looney MD - Last Filed: 05/05/23 16:25> Initial Vital Signs Initial Vital Signs: Vital Signs Temperature 98 F 05/05/23 14:22 Pulse Rate 84 05/05/23 14:22 Respiratory Rate 12 05/05/23 14:22 Blood Pressure 112/58 L 05/05/23 14:22 Pulse Oximetry 97 05/05/23 14:22 Oxygen Delivery Method Room Air 05/05/23 14:22 Course <Kadi Triplett PA-C - Last Filed: 05/05/23 15:14> Course Course Narrative: Churchill catheter tubing was made dependent to gravity again and the urine was flowing just fine. We have empty the leg bag, we have also brought replacement leg bag as well as a larger Churchill bag for home. Reevaluation(s) Reevaluation #1: No apparent urinary outflow obstruction, this appears to have been a mechanical issue with the tubing that has been anchored in the nondependent manor or by his . RN education given regarding proper application of tubing and the need for gravity dependent. Vital Signs Vital signs: Vital Signs - 8 hr 05/05/23 14:22 Temperature 98 F Pulse Rate 84 Respiratory Rate 12 Blood Pressure 112/58 L Pulse Oximetry 97 Oxygen Delivery Method Room Air <Magalys Looney MD - Last Filed: 05/05/23 16:25> Vital Signs Vital signs: Vital Signs - 8 hr 05/05/23 14:22 Temperature 98 F Pulse Rate 84 Respiratory Rate 12 Blood Pressure 112/58 L Pulse Oximetry 97 Oxygen Delivery Method Room Air MDM - Recheck/Abnormal Lab/Rx <Kadi Triplett PA-C - Last Filed: 05/05/23 15:14> [facility] Narrative Medical decision making narrative: After his leg bag and tubing were rearranged to be gravity dependent there does not appear to be any urine outflow obstruction. We have given him additional supplies for home. He has no clinical findings on examination or complaint to warrant any laboratory or urinalysis at this point. Discharged in improved condition. He is ambulatory with his walker at the time of discharge. Discharge Plan Departure Patient Disposition: Home Clinical Impression: Encounter for fitting and adjustment of urinary device Instructions: How to Care for Your Churchill Catheter -- Male Activity Restrictions/Additional Instructions: We have adjusted your leg bag and tubing. Please try to keep the tubing gravity dependent meaning pointed downward and not coiled or kinked or sitting on the thigh. You have been dispensed an additional leg bag as well as a regular urine bag for home use. There does not appear to be any leakage around the catheter itself. Please return if anything stops flowing, please avoid using super glue in the future, monitor for any symptoms and seek medical attention as needed. Red flag warning signs include inability to empty the bladder blood in the urine, foul odor, cloudiness, back pain, fever, nausea or vomiting or any other worrisome symptoms. Prescriptions: No Action atorvastatin 10 mg tablet 10 mg PO DAILY Qty: 90 3RF metformin 850 mg tablet 850 mg PO TID Qty: 240 1RF losartan 50 mg tablet 50 mg PO DAILY Qty: 90 1RF finasteride 1 mg tablet 1 mg PO DAILY Qty: 90 1RF omeprazole 20 mg capsule,delayed release(DR/EC) 20 mg PO DAILY Qty: 90 1RF potassium citrate 10 mEq (1,080 mg) tablet extended release 10 meq PO BID Qty: 180 1RF tamsulosin 0.4 mg capsule 0.8 mg PO DAILY Qty: 180 1RF gabapentin 100 mg capsule 100 mg PO 3XD Qty: 270 1RF (DME) pen needle, diabetic [BD Reshma 2nd Gen Pen Needle] 32 gauge x 5/32 needle See Rx Instructions .ROUTE .MEDSUPPLY Qty: 100 3RF Rx Instructions: As directed insulin glargine [Lantus Solostar U-100 Insulin] 100 unit/mL (3 mL) insulin pen 60 unit SUBCUT BID Qty: 15 4RF Rx Instructions: 60 in morning, 60 units at bedtime (DME) lancets [Micro Thin Lancets] 33 gauge misc See Rx Instructions .ROUTE .MEDSUPPLY Qty: 100 Patient Comments: USE TO TEST BLOOD SUGAR THREE TIMES A DAY Rx Instructions: As directed selegiline HCl 5 mg tablet 5 mg PO BID Rx Instructions: administer with breakfast and lunch aspirin [Adult Low Dose Aspirin] 81 mg tablet,delayed release (DR/EC) 81 mg PO DAILY timolol maleate 0.5 % drops 1 drp ophthalmic (eye) DAILY latanoprost 0.005 % drops 1 drp DAILY carbidopa-levodopa 25-100 mg tablet extended release 1 tab PO BID acetaminophen [Acetaminophen Extra Strength] 500 mg Tablet 500 mg PO Q6H PRN (Reason: Pain (Scale Score 4-6)) cranberry 400 mg Capsule 400 mg PO DAILY Rx Instructions: administer with a meal carbidopa-levodopa 25-100 mg tablet See Rx Instructions .ROUTE .COMPLEX Rx Instructions: take 3 tabs at 0600, 2.5 tabs at 1000, 3 tabs at 1400, 2.5 tabs at 1800, 2.5 tabs at 2200 insulin glargine [Lantus Solostar U-100 Insulin] 100 unit/mL (3 mL) Insulin Pen 40 unit SUBCUT BID Qty: 15 0RF hydrocodone-acetaminophen 5-325 mg Tablet 1 tab PO Q4HR PRN (Reason: Pain, Moderate (4-6)) Qty: 30 0RF temazepam 15 mg Capsule 15 mg PO BEDTIME PRN (Reason: Sleep) Qty: 30 0RF Referrals: Ravindra Goldsmith DO [Primary Care Provider] - Stand Alone Forms: Patient Portal/API ED Sign-out <Magalys Looney MD - Last Filed: 05/05/23 16:25> Cosign ED Attending Cosmarcellaature Attestation: I did not see this patient. I was available all times for consultation.
== END 2023-05-05 15:17 | disposition home or self-care (01) ==
PROVIDERS: Emergency Provider Physician Assistant Medical; PCP Family Medicine
DX: T83.9XXA Unspecified complication of genitourinary prosthetic device, implant and graft, initial encounter (principal)
CPT/HCPCS: 99281

== ENCOUNTER → 2023-05-12 14:59 | Outpatient (CLI) | payer MEDICARE, OTHER, SELFPAY ==
[2022-12-27 11:39] VITALS: PULSE 112; RESP 40; O2SAT 95
[2023-04-03 12:13] VITALS: BMI 36.1
[2023-05-12 15:40] LABS: Add Manual Diff / Slide Review NO; Basophils Absolute Auto 200 /uL (0-100); Basophils Percent Auto 1.4 % (0-2); Eosinophils Absolute Auto 300 /uL (0-450); Eosinophils Percent Auto 2.6 % (2-4); Hematocrit 35.6 % (41-53); Hemoglobin 11.6 g/dL (13.5-17.5); Lymphocytes Absolute Auto 2300 /uL (1100-4500); Lymphocytes Percent Auto 18.3 % (25-40); Mean Corpuscular HGB Conc 32.6 % (30-36); Mean Corpuscular Hemoglobin 27.7 PG (26-34); Mean Corpuscular Volume 85.2 fL (80-100); Monocytes Absolute Auto 700 /uL (0-900); Monocytes Percent Auto 5.2 % (3-14); Neutrophils Absolute Auto 9300 /uL (1500-7000); Neutrophils Percent Auto 72.5 % (50-75); Platelet Count 300 X10^3/uL (150-400); Red Blood Cell Count 4.18 X10^6/uL (4.5-5.9); Red Cell Distribution Width 16.9 % (11.6-14.8); White Blood Cell Count 12.8 X10^3/uL (4.5-11.0)
[2023-05-13 01:01] LABS: Vitamin B12 366 pg/mL (239-931)
== END ==
PROVIDERS: PCP Family Medicine; Referring Provider Family Medicine; Visit Provider Family Medicine
DX: E78.5 Hyperlipidemia, unspecified (principal); E11.9 Type 2 diabetes mellitus without complications; I10 Essential (primary) hypertension; D64.9 Anemia, unspecified
CPT/HCPCS: 36415; 82607; 85025

== ENCOUNTER 2023-05-15 12:56 | Inpatient (IN) | payer MEDICARE, OTHER, SELFPAY ==
[2022-12-27 11:39] VITALS: PULSE 112; RESP 40; O2SAT 95
[2023-04-03 12:13] VITALS: BMI 36.1
[2023-05-15] VITALS (68 sets, daily range): BP systolic 89–173; BP diastolic 50–105; PULSE 53–118; RESP 10–38; TEMP 31–37; O2SAT 86–100; BMI 34.9
--- NOTE | 2023-05-15 13:07 | ED_ITS ---
HPI - SOB/Dyspnea General Chief Complaint: Shortness of Breath/Dyspnea Stated Complaint: Resp Distress Time Seen by Provider: 05/15/23 13:05 Source: patient, EMS, RN notes reviewed and old records reviewed Mode of arrival: EMS Limitations: no limitations History of Present Illness HPI Narrative: 73-year-old male with history of congestive heart failure, Parkinson's disease, hypertension, diabetes, prostate cancer, urinary retention with recurrent UTIs, dyslipidemia, pacemaker who presents with complaint of respiratory distress. Patient had similar episode and symptoms in March 2023. Was on high-flow and found to have sepsis with hypotension, respiratory distress secondary to acute cystitis with history of ESBL infection. Patient was treated with ertapenem at that time. Patient according to EMS was wheezy initially on arrival, received DuoNeb x2 was placed on CPAP and had improvement. But had difficulty obtaining blood pressure. Patient indicates that he is feeling improved after this treatment. Was switched over to BiPAP upon arrival. Patient denies any recent fevers, states he has not been feeling unwell until the last day. States no chest pain or shortness of breath, no cold cough or congestion symptoms. Denies any nausea or vomiting. Denies any abdominal back or flank pain. States his catheter sometimes has difficulty with drainage. Has not noticed any significant color changes but does think it might be infected. Denies any changes to bowel movements. No new swelling of extremities. Patient did not require intubation but did have a course of pressors. Patient is full code with intubation if needed. Patient denies prior surgeries but does have a pacemaker in place. Former smoker, occasional alcohol, no recreational drugs. Dr. Goldsmith is his primary care physician. Related Data Home Medications Medication Instructions Recorded Confirmed latanoprost 0.005 % eye drops 1 drp DAILY 06/02/22 05/15/23 timolol maleate 0.5 % eye drops 1 drp ophthalmic (eye) DAILY 06/02/22 05/15/23 aspirin 81 mg tablet,delayed 81 mg PO DAILY 10/21/22 05/15/23 release (Adult Low Dose Aspirin) acetaminophen 500 mg tablet 500 mg PO Q6H PRN Pain (Scale 04/03/23 05/15/23 (Acetaminophen Extra Strength) Score 4-6) carbidopa 25 mg-levodopa 100 mg See Rx Instructions .Route .COMPLEX 02/25/24 04/07/24 tablet carbidopa ER 25 mg-levodopa 100 mg 1 tab PO BID 04/03/23 05/15/23 tablet,extended release cranberry 400 mg capsule 400 mg PO DAILY 04/03/23 05/15/23 finasteride 5 mg tablet 5 mg PO DAILY 05/15/23 05/15/23 insulin glargine 100 unit/mL (3 See Rx Instructions .Route .COMPLEX 05/15/23 05/15/23 mL) subcutaneous pen (Lantus Solostar U-100 Insulin) Previous Rx's Medication Instructions Recorded atorvastatin 10 mg tablet 10 mg PO DAILY #90 tabs 12/14/22 metformin 850 mg tablet 850 mg PO TID #240 tabs 01/03/23 losartan 50 mg tablet 50 mg PO DAILY #90 tabs 01/11/23 omeprazole 20 mg capsule,delayed 20 mg PO DAILY #90 caps 01/17/23 release potassium citrate 10 mEq (1,080 10 meq PO BID #180 tabs 01/17/23 mg) tablet,extended release tamsulosin 0.4 mg capsule 0.8 mg (2 x 0.4 mg) PO DAILY #180 01/17/23 caps gabapentin 100 mg capsule 100 mg PO 3XD #270 caps 02/01/23 hydrocodone 5 mg-acetaminophen 325 1 tab PO Q4HR PRN Pain, Moderate 04/06/23 mg tablet (4-6) #30 tabs temazepam 15 mg capsule 15 mg PO BEDTIME PRN Sleep #30 caps 04/06/23 Allergies Allergy/AdvReac Type Severity Reaction Status Date / Time No Known Drug Allergies Allergy Verified 05/05/23 14:25 Review of Systems Review of Systems ROS Unobtainable: All systems reviewed & are unremarkable except as noted in HPI and below Patient History Medical History History of urinary retention Hyperlipidemia History of nephrolithiasis Left nephrolithiasis Urinary retention Recurrent UTI History of prostate cancer Acne Shoulder pain Ankle pain Measles Chicken pox Prostate cancer (~2010) Anemia Benign prostatic hyperplasia GERD (gastroesophageal reflux disease) Hypertension Type 2 diabetes mellitus Parkinson's disease Congestive heart failure Surgical History History of prostate biopsy Anesthesia History of knee surgery Kidney stones Family History Father Stroke Hypertension Bacterial UTI Mother Cancer Sister Hypertension Aunt Diabetes mellitus Uncle Kidney stones Social History marital status: number of children: 3 household members: spouse Smoking Status: Former smoker alcohol intake: never Type(s) of exercise: walking frequency: 1-2 times per week Smoking Status: Former smoker tobacco type: cigarettes alcohol intake frequency: 0-2 drinks per day Substance Use Type: does not use Exam Narrative Exam Narrative: GEN: Male in moderate distress, alert and oriented x 3, cooperative. HEENT: Atraumatic, pupils are equal round reactive to light, extraocular movements are intact, nares are clear, there is no conjunctival pallor. Throat is clear without any exudates, erythema, tonsillar enlargement or uvular deviation HEART: Tachycardic but regular rate and rhythm without murmur, clicks, rubs. pulses are equal in upper and lower extremities LUNGS:Lungs slightly decreased bilaterally, no wheezes appreciated, no rales, crackles, chest moves symmetrically, positive for tachypnea. Patient on CPAP upon arrival with EMS. Switched over to BiPAP. Talking to in 3 word sentences. ABD:bowel sounds normal, soft, non-tender, no guarding, rebound, rigidity, no masses noted, no hepatosplenomegaly :No CVA tenderness, mixon catheter in place draining yellow urine. MSCL: Non-tender, no muscle atrophy, muscles strength 5/5 upper and lower extremities, full range of motion NEURO:CN 2-12 intact, sensation normal Initial Vital Signs Initial Vital Signs: Vital Signs Pulse Rate 118 H 05/15/23 13:00 Pulse Oximetry 98 05/15/23 13:00 Course Orders Ordered: ED Orders 05/15/23 13:06 XR chest 1V Stat EKG-12 Lead Stat 05/15/23 13:07 Urinalysis and Microscopic Stat Urine Culture Stat 05/15/23 13:14 Arterial Blood Gas Stat 05/15/23 13:17 Complete Blood Count AUTO DIFF Stat Comprehensive Metabolic Panel Stat Lactate (Lactic Acid) Stat NT-proBNP (BNP-Adult 18+) Stat PTT Partial Thromboplastin Jeremiah Stat Procalcitonin Stat Prothrombin Time INR Stat Troponin & CK Cardiac Panel Stat 05/15/23 13:21 Respiratory Panel (Film Array) Stat 05/15/23 13:40 Blood Culture Stat Acetaminophen (Acetaminophen 325 Mg Tablet) 650 mg PO Q6H PRN PRN Reason: Fever/Mild Pain (1-3) Hydrocodone Bitart/Acetaminophen (Hydrocodone/Acet 5/325 Tablet) 1 tab PO Q4HR PRN PRN Reason: Pain, Moderate (4-6) Aspirin (Aspirin Ec 81 Mg Tablet) 81 mg PO DAILY KONG Carbidopa/Levodopa (Carbidopa-Levodopa 25/100 Tablet) 0 each PO .COMPLEX KONG Finasteride (Finasteride 5 Mg Tablet) 5 mg PO DAILY KONG Gabapentin (Gabapentin 100 Mg Capsule) 100 mg PO 3XD KONG Heparin Sodium (Porcine) (Heparin 5,000 Unit/Ml Vial) 5,000 unit SUBCUT BID KONG Ertapenem 1 gm/ Sodium (Chloride) 100 mls @ 200 mls/hr IV Q24H KONG Dextrose (D10w) 100 mls @ 1,200 mls/hr IV PRN PRN PRN Reason: Hypoglycemia Insulin Glargine (Insulin Glargine 100 Unit/Ml 3ml Pen) 40 unit SUBCUT BID KONG Insulin Human Lispro (Insulin Lispro 100 Unit/Ml 3ml Vial) 0 unit SUBCUT ACHS KONG; Protocol Latanoprost (Latanoprost 0.005% Ophth 2.5 Ml) drops EYE-BOTH DAILY [facility] Naloxone HCl (Naloxone 0.4 Mg/Ml Vial) 0.2 mg IV Q2MIN PRN PRN Reason: Opiate Reversal Non-Formulary Medication (Atorvastatin) 10 mg PO DAILY [facility] Non-Formulary Medication (Carbidopa-Levodopa) 1 tab PO BID [facility] Tamsulosin HCl (Tamsulosin 0.4 Mg Capsule) 0.8 mg PO DAILY [facility] Timolol Maleate (Timolol 0.5% Ophth) drops EYE-BOTH DAILY [facility] Discontinued Medications Sodium Chloride (Normal Saline 0.9%) 1,000 mls @ 1,000 mls/hr IV BOLUS ONE Stop: 05/15/23 14:05 Last Infusion: 05/15/23 14:47 Dose: Infused Documented By: Admin: 05/15/23 13:31 Dose: 1,000 mls/hr Documented By: ULYSSES Ertapenem 1 gm/ Sodium (Chloride) 100 mls @ 200 mls/hr IV NOW ONE Stop: 05/15/23 13:16 Last Infusion: 05/15/23 14:48 Dose: Infused Documented By: Admin: 05/15/23 13:49 Dose: 200 mls/hr Documented By: ULYSSES Vancomycin HCl/Dextrose (Vancomycin) 1,500 mg in 300 mls @ 200 mls/hr IV NOW ONE Stop: 05/15/23 14:44 Last Infusion: 05/15/23 15:49 Dose: Infused Documented By: Admin: 05/15/23 13:50 Dose: 200 mls/hr Documented By: ULYSSES Sodium Chloride (Normal Saline 0.9%) 1,000 mls @ 500 mls/hr IV BOLUS ONE Stop: 05/15/23 16:44 Last Infusion: 05/15/23 15:30 Dose: 0 mls/hr Documented By: Admin: 05/15/23 14:57 Dose: 500 mls/hr Documented By: DEBBY Lorazepam (Lorazepam 2 Mg/Ml Inj) 0.5 mg IV NOW ONE Stop: 05/15/23 13:39 Last Admin: 05/15/23 13:39 Dose: 0.5 mg Documented By: ULYSSES Vital Signs Vital signs: Vital Signs - 8 hr 05/15/23 13:00 05/15/23 13:02 05/15/23 13:05 Temperature 98.0 F Pulse Rate 118 H 112 H 112 H Respiratory Rate 30 H 36 H Blood Pressure 99/54 L Pulse Oximetry 98 99 99 Oxygen Delivery Method CPAP Fraction of Inspired Oxygen 05/15/23 13:10 05/15/23 13:10 05/15/23 13:14 Temperature Pulse Rate 110 H Respiratory Rate 33 H Blood Pressure 99/50 L 96/52 L Pulse Oximetry 98 Oxygen Delivery Method Fraction of Inspired Oxygen 28 05/15/23 13:14 05/15/23 13:15 05/15/23 13:15 Temperature Pulse Rate 109 H 109 H Respiratory Rate 34 H 34 H Blood Pressure 99/50 L Pulse Oximetry 99 98 Oxygen Delivery Method Fraction of Inspired Oxygen 05/15/23 13:18 05/15/23 13:18 05/15/23 13:20 Temperature Pulse Rate 108 H 106 H Respiratory Rate 33 H 35 H Blood Pressure 89/50 L Pulse Oximetry 98 98 Oxygen Delivery Method Fraction of Inspired Oxygen 05/15/23 13:21 05/15/23 13:21 05/15/23 13:25 Temperature Pulse Rate 106 H 106 H Respiratory Rate 33 H 34 H Blood Pressure 104/50 L Pulse Oximetry 97 Oxygen Delivery Method Fraction of Inspired Oxygen 05/15/23 13:30 05/15/23 13:35 05/15/23 13:40 Temperature Pulse Rate 53 L 113 H 113 H Respiratory Rate Blood Pressure Pulse Oximetry 97 99 99 Oxygen Delivery Method Fraction of Inspired Oxygen 05/15/23 13:45 05/15/23 13:49 05/15/23 13:49 Temperature Pulse Rate 108 H 105 H Respiratory Rate 28 H 35 H Blood Pressure 106/58 L Pulse Oximetry 100 99 Oxygen Delivery Method BiPAP Fraction of Inspired Oxygen 05/15/23 13:52 05/15/23 13:52 05/15/23 14:00 Temperature Pulse Rate 102 H 101 H Respiratory Rate 29 H 31 H Blood Pressure 103/55 L Pulse Oximetry 99 99 Oxygen Delivery Method Fraction of Inspired Oxygen 05/15/23 14:01 05/15/23 14:01 05/15/23 14:15 Temperature Pulse Rate 100 H 97 H Respiratory Rate 32 H 34 H Blood Pressure 96/60 Pulse Oximetry 98 98 Oxygen Delivery Method Fraction of Inspired Oxygen 05/15/23 14:16 05/15/23 14:16 05/15/23 14:30 Temperature Pulse Rate 97 H 95 H Respiratory Rate 33 H 36 H Blood Pressure 95/69 Pulse Oximetry 98 99 Oxygen Delivery Method Fraction of Inspired Oxygen 05/15/23 14:38 05/15/23 14:38 05/15/23 14:45 Temperature Pulse Rate 95 H 94 H Respiratory Rate 24 38 H Blood Pressure 134/72 Pulse Oximetry 98 99 Oxygen Delivery Method Fraction of Inspired Oxygen MDM - SOB/Dyspnea Lab Data 05/15/23 13:17 05/15/23 13:17 Labs: Lab Results 05/15/23 05/15/23 05/15/23 Range/Units 13:07 13:14 13:17 WBC 15.8 H (4.5-11.0) X10^3/uL RBC 3.65 L (4.5-5.9) X10^6/uL Hgb 10.3 L (13.5-17.5) g/dL Hct 31.4 L (41-53) % MCV 86.1 (80-100) fL MCH 28.1 (26-34) PG MCHC 32.7 (30-36) % RDW 16.5 H (11.6-14.8) % Plt Count 273 (150-400) X10^3/uL Neut % (Auto) 89.0 H (50-75) % Lymph % (Auto) 5.0 L (25-40) % [place] % (Auto) 5.0 (3-14) % Eos % (Auto) 0.5 L (2-4) % Baso % (Auto) 0.5 (0-2) % Neut # (Auto) 08719 H (9543-5024) /uL Lymph # (Auto) 800 L (2876-2914) /uL [place] # (Auto) 800 (0-900) /uL Eos # (Auto) 100 (0-450) /uL Baso # (Auto) 100 (0-100) /uL PT 12.8 H (9.4-12.5) SECONDS INR 1.1 (0.9-1.3) APTT 31 (25.1-36.5) SECONDS ABG Sample Site Right radial ABG pH 7.32 L (7.35-7.45) ABG pCO2 22.0 L* (35-45) mmHg ABG pO2 126 H (80-100) mmHg ABG HCO3 11 L (23-27) mmol/L ABG Total CO2 12 L (23-27) mmol/L ABG O2 Saturation 99 (95-100) % ABG Base Excess -15.0 L (-2-3) mmol/L FiO2 35 Sodium 136 L (137-145) mmol/L Potassium 4.2 (3.4-5.1) mmol/L Chloride 107 (98-107) mmol/L Carbon Dioxide 10 L (22-32) mmol/L BUN 27 H (9-20) mg/dL Creatinine 1.40 H (0.66-1.25) mg/dL Estimated GFR 53 L (>60) mL/min BUN/Creatinine Ratio 19.3 (6-22) Glucose 165 H (80-110) mg/dL Lactate 10.6 H* (0.7-2.1) mmol/L Calcium 9.6 (8.4-10.2) mg/dL Total Bilirubin 0.7 (0.2-1.3) mg/dL AST 27 (17-59) IU/L ALT 20 (<50) IU/L Alkaline Phosphatase 86 (38-126) U/L Total Creatine Kinase 93 (55-170) U/L Troponin I < 0.012 (0.01-0.034) ng/mL NT-Pro-B Natriuret Pep 682 H (<125) pg/mL Total Protein 6.8 (6.3-8.2) g/dL Albumin 3.7 (3.5-5.0) g/dL Globulin 3.1 (1.7-4.1) g/dL Albumin/Globulin Ratio 1.2 (1.0-2.8) Procalcitonin 0.12 (<0.5) ng/mL Urine Color Yellow Urine Appearance Cloudy Urine pH 7.5 (4.5-8.0) Ur Specific [place] 1.015 (1.000-1.035) Urine Protein 2+ H (Negative) Urine Glucose (UA) Negative (Negative) g/dL Urine Ketones Negative (NEGATIVE) Urine Occult Blood Trace-intact (Negative) Urine Nitrate Positive H (Negative) Urine Bilirubin Negative (NEGATIVE) Urine Urobilinogen 0.2 (0.2) E.U./dL Ur Leukocyte Esterase 1+ H (NEGATIVE) Urine RBC 1-5/hpf (0-5/HPF) Urine WBC 5-10/hpf H (0-5/HPF) Ur Squamous Epith Cells None seen (0-5/HPF) Urine Bacteria Many (>30) H (None) Ur Culture Indicated? Specimen cultured Vol Urine Centrifuged 10ml (spun) Chlamy pneumoniae PCR (Not Detect) Adenovirus (PCR) (Not Detect) B.parapertussis DNA PCR (Not Detecte) Coronavirus OC43 (PCR) (Not Detect) Coronavirus HKU1 (PCR) (Not Detect) Coronavirus 229E (PCR) (Not Detect) SARS-CoV-2 (PCR) (Not Detecte) Coronavirus NL63 (PCR) (Not Detect) Human Metapneumovir PCR (Not Detect) Influenza Type A (PCR) (Not Detect) Influenza Type B (PCR) (Not Detect) M. pneumoniae (PCR) (Not Detect) Parainfluenza 1 (PCR) (Not Detect) Parainfluenza 2 (PCR) (Not Detect) Parainfluenza 3 (PCR) (Not Detect) Parainfluenza 4 (PCR) (Not Detect) RSV (PCR) (Not Detect) Entero/Rhino (PCR) (Not Detect) 05/15/23 Range/Units 13:21 WBC (4.5-11.0) X10^3/uL RBC (4.5-5.9) X10^6/uL Hgb (13.5-17.5) g/dL Hct (41-53) % MCV (80-100) fL MCH (26-34) PG MCHC (30-36) % RDW (11.6-14.8) % Plt Count (150-400) X10^3/uL Neut % (Auto) (50-75) % Lymph % (Auto) (25-40) % [place] % (Auto) (3-14) % Eos % (Auto) (2-4) % Baso % (Auto) (0-2) % Neut # (Auto) (4961-2660) /uL Lymph # (Auto) (4298-3500) /uL [place] # (Auto) (0-900) /uL Eos # (Auto) (0-450) /uL Baso # (Auto) (0-100) /uL PT (9.4-12.5) SECONDS INR (0.9-1.3) APTT (25.1-36.5) SECONDS ABG Sample Site ABG pH (7.35-7.45) ABG pCO2 (35-45) mmHg ABG pO2 (80-100) mmHg ABG HCO3 (23-27) mmol/L ABG Total CO2 (23-27) mmol/L ABG O2 Saturation (95-100) % ABG Base Excess (-2-3) mmol/L FiO2 Sodium (137-145) mmol/L Potassium (3.4-5.1) mmol/L Chloride (98-107) mmol/L Carbon Dioxide (22-32) mmol/L BUN (9-20) mg/dL Creatinine (0.66-1.25) mg/dL Estimated GFR (>60) mL/min BUN/Creatinine Ratio (6-22) Glucose (80-110) mg/dL Lactate (0.7-2.1) mmol/L Calcium (8.4-10.2) mg/dL Total Bilirubin (0.2-1.3) mg/dL AST (17-59) IU/L ALT (<50) IU/L Alkaline Phosphatase (38-126) U/L Total Creatine Kinase (55-170) U/L Troponin I (0.01-0.034) ng/mL NT-Pro-B Natriuret Pep (<125) pg/mL Total Protein (6.3-8.2) g/dL Albumin (3.5-5.0) g/dL Globulin (1.7-4.1) g/dL Albumin/Globulin Ratio (1.0-2.8) Procalcitonin (<0.5) ng/mL Urine Color Urine Appearance Urine pH (4.5-8.0) Ur Specific [place] (1.000-1.035) Urine Protein (Negative) Urine Glucose (UA) (Negative) g/dL Urine Ketones (NEGATIVE) Urine Occult Blood (Negative) Urine Nitrate (Negative) Urine Bilirubin (NEGATIVE) Urine Urobilinogen (0.2) E.U./dL Ur Leukocyte Esterase (NEGATIVE) Urine RBC (0-5/HPF) Urine WBC (0-5/HPF) Ur Squamous Epith Cells (0-5/HPF) Urine Bacteria (None) Ur Culture Indicated? Vol Urine Centrifuged Chlamy pneumoniae PCR Not detected (Not Detect) Adenovirus (PCR) Not detected (Not Detect) B.parapertussis DNA PCR Not detected (Not Detecte) Coronavirus OC43 (PCR) Not detected (Not Detect) Coronavirus HKU1 (PCR) Not detected (Not Detect) Coronavirus 229E (PCR) Not detected (Not Detect) SARS-CoV-2 (PCR) Not detected (Not Detecte) Coronavirus NL63 (PCR) Not detected (Not Detect) Human Metapneumovir PCR Not detected (Not Detect) Influenza Type A (PCR) Not detected (Not Detect) Influenza Type B (PCR) Not detected (Not Detect) M. pneumoniae (PCR) Not detected (Not Detect) Parainfluenza 1 (PCR) Not detected (Not Detect) Parainfluenza 2 (PCR) Not detected (Not Detect) Parainfluenza 3 (PCR) Not detected (Not Detect) Parainfluenza 4 (PCR) Not detected (Not Detect) RSV (PCR) Not detected (Not Detect) Entero/Rhino (PCR) Not detected (Not Detect) Imaging Data Chest x-ray: Radiologist's Impression: [address] [address] XRay Report Signed Patient: Sarbjit Mayen MR#: [id number] : 1950 Acct:[id number] Age/Sex: 73 / M Date of Service: 05/15/23 Loc: ED Accession Number: [id number] Procedure: XR chest 1V Ordering Provider: Magalys Way D.O. PROCEDURE: XR CHEST 1V INDICATIONS: resp distress TECHNIQUE: One view of the chest was acquired. COMPARISON: [facility], , XR CHEST 1V, 04/04/2023, 23:12. FINDINGS: Surgical changes and devices: Right-sided vagus stimulator Lungs and pleura: Lungs are clear. No pleural effusions or pneumothorax. Mediastinum: Heart size is enlarged and accentuated by low lung volumes Bones and chest wall: No suspicious bony lesions. Overlying soft tissues appear unremarkable. IMPRESSION: Cardiomegaly and mild vascular congestion accentuated by low lung volumes Approved by: Joseph Stoner M.D. on 05/15/2023 at 12:56 ECG Data Attestation: I personally reviewed and interpreted this ECG as follows: Prior ECG tracings: available for review Interpretation: Sinus tachycardia rate of 109 ID 142 QRS is 76 QTC of 487. No acute ST elevation or depression appreciated. Patient has prior from 04/03/2023 which appears similar with nonspecific change. Treatment and disposition Code Status and discussions:: full code MDM Narrative Medical decision making narrative: This is a 73-year-old male with history of respiratory distress secondary to sepsis from ESBL cystitis in the past month and a half. Patient at that time was hypoxic, hypotensive and requiring high-flow. Patient did have improvement with DuoNebs with EMS, was switched over to BiPAP here in the department. Is hypotensive we will give a L bolus and re-evaluate. Patient has had heart failure in the past so we will resuscitate with fluids but gently. Plan for antibiotics with recent hospitalization and did have quite a bit of resistance we will cover with ertapenem and vancomycin to start. Labs patient has a white count of 15.8, hemoglobin 10.3 fairly consistent with priors, platelets of 273 with a predominance of neutrophils. INR is negative. She was 136 potassium is 4 2 CO2 is 10 with a BUN 27 and a creatinine of 1.4, this is increased from prior was 1 point 1 8 trended down 2.8 9 during his last hospital stay in March. Glucose is 165. Initial lactate is 10.6 with a calcium of 9 6. LFTs are negative, troponins negative, BNP is 682. Procalcitonin 0.12. EKG sinus tachycardia without any acute ST changes there is some nonspecific change but similar to prior EKG from last hospitalization. Chest x-ray chest x-ray shows cardiomegaly and mild vascular congestion, lungs are otherwise clear no pleural effusions or pneumothorax, heart size is enlarged. Accentuated by low lung volumes. Urine is positive for nitrates 1+ leuks, 1-5 RBCs 5-10 white cells many bacteria was sent for culture. Negative for ketones 2+ protein. Respiratory panel negative. ABG shows pH of 7.32 CO2 of 22 PO2 of 126 with a bicarb of 11.4, appears to have a metabolic acidosis with some respiratory compensation. Patient was on BiPAP and 14/5 with a rate of 15 and FiO2 of 0.35, this was decreased to a rate of 12. Patient started to have some atypical movements but has known Parkinson's disease stated this was similar he did receive 0.5 of Ativan he states he did take his Parkinson's medication this morning. He thinks he takes a dose in the afternoon but unable to give me dosing. Patient was hypotensive upon arrival, recheck after 500 bolus systolic pressure is now 100. Suspect patient is here with similar he notes his catheter has not been replaced in the past 3 months likely UTI sepsis, does have an GUSTAVO with hypotension and respiratory distress. We will continue with gentle fluid resuscitation while monitoring for fluid overload. Spoke with Dr. Granado, hospitalist; asked that we give additional 500 bolus, agrees with current antibiotic choices we will hold off on additional imaging. Patient is currently on BiPAP but has had improvement in his breathing here in the department. Critical Care Time Critical Care Time Critical Care Time: Yes Total Critical Care Time: 45 Attestation: The high probability of a clinically significant, sudden or life threatening deterioration of the [cardiac,pulm] system(s) required my full and direct attention, intervention and personal management. The aggregate critical care time was [] minutes. This time is in addition to time spent performing reported procedures but includes the following: [x] Data Review and interpretation [x] Patient assessment and monitoring of vital signs [x] Documentation [x] Medication orders and management Discharge Plan Departure Patient Disposition: Admitted As Inpatient Clinical Impression: Acute UTI, Sepsis, GUSTAVO (acute kidney injury) Admit Date/Time: 05/15/23 14:46 Admit Provider: Andres Granado
[2023-05-15 13:12] LABS: Appearance Urine UA CLOUDY; Bilirubin Urine UA NEGATIVE (NEGATIVE); Color Urine UA YELLOW; Glucose Urine UA NEGATIVE (Negative); Ketones Urine UA NEGATIVE (NEGATIVE); Leukocyte Esterase Urine UA 1+ (NEGATIVE); Nitrite Urine UA POSITIVE (Negative); Occult Blood Urine UA TRACE-INTACT (Negative); Protein Urine UA 2+ (Negative); Specific Gravity Urine UA 1.015 (1.000-1.035); Urobilinogen Urine UA 0.2 E.U./dL (0.2); pH Urine UA 7.5 (4.5-8.0)
[2023-05-15 13:22] LABS: Urine Volume 10mL (spun)
[2023-05-15 13:23] LABS: Bacteria Urine Many (>30); Culture Indicated Urine Specimen Cultured; RBC Urine 1-5/HPF (0-5/HPF); Squamous Epithelial Cell Urine None Seen (0-5/HPF); WBC Urine 5-10/HPF (0-5/HPF)
[2023-05-15 13:24] LABS: Add Manual Diff / Slide Review NO; Basophils Absolute Auto 100 /uL (0-100); Basophils Percent Auto 0.5 % (0-2); Eosinophils Absolute Auto 100 /uL (0-450); Eosinophils Percent Auto 0.5 % (2-4); Hematocrit 31.4 % (41-53); Hemoglobin 10.3 g/dL (13.5-17.5); Lymphocytes Absolute Auto 800 /uL (1100-4500); Mean Corpuscular HGB Conc 32.7 % (30-36); Mean Corpuscular Hemoglobin 28.1 PG (26-34); Mean Corpuscular Volume 86.1 fL (80-100); Monocytes Absolute Auto 800 /uL (0-900); Neutrophils Absolute Auto 14100 /uL (1500-7000); Platelet Count 273 X10^3/uL (150-400); Red Blood Cell Count 3.65 X10^6/uL (4.5-5.9); Red Cell Distribution Width 16.5 % (11.6-14.8); White Blood Cell Count 15.8 X10^3/uL (4.5-11.0)
[2023-05-15 13:26] LABS: Blood Gas Collection Site Right Radial; Fractionated Inspired Oxygen 35; HCO3 ABG 11 mmol/L (23-27); Oxygen Saturation ABG 99 % (95-100); PO2 ABG 126 mmHg (80-100); TCO2 ABG 12 mmol/L (23-27); pH ABG 7.32 (7.35-7.45)
[2023-05-15 13:27] LABS: Allen Test for ABG Passed? Yes, Passed
[2023-05-15] MEDS: SODIUM CHLORIDE 0.9% 1,000 ML 1000 ML IV (13:31)
[2023-05-15 13:32] LABS: INR 1.1 (0.9-1.3); Prothrombin Time 12.8 SECONDS (9.4-12.5)
[2023-05-15 13:35] LABS: PTT Partial Thromboplastin Tim 31 SECONDS (25.1-36.5)
[2023-05-15 13:37] LABS: Lactate (Lactic Acid) 10.6 mmol/L (0.7-2.1)
[2023-05-15] MEDS: LORazepam 2 MG/ML INJ 0.5 MG IV (13:39)
[2023-05-15 13:47] LABS: Albumin 3.7 g/dL (3.5-5.0); Albumin Globulin Ratio 1.2 (1.0-2.8); Alkaline Phosphatase 86 U/L (38-126); Aspartate Aminotransferase 27 IU/L (17-59); BUN Creatinine Ratio 19.3 (6-22); Bilirubin Total 0.7 mg/dL (0.2-1.3); Blood Urea Nitrogen 27 mg/dL (9-20); Calcium 9.6 mg/dL (8.4-10.2); Carbon Dioxide 10 mmol/L (22-32); Chloride 107 mmol/L (98-107); Creatine Kinase 93 U/L (55-170); Estimated Glomerular Filt Rate 53 mL/min (>60); Globulin 3.1 g/dL (1.7-4.1); Glucose 165 mg/dL (80-110); HEMOLYSIS < 15 (0-50); Potassium 4.2 mmol/L (3.4-5.1); Sodium 136 mmol/L (137-145); Total Protein 6.8 g/dL (6.3-8.2)
[2023-05-15] MEDS: ERTAPENEM 1 GM in SODIUM CHLORIDE 0.9% 100 ML IV (13:49)
[2023-05-15] MEDS: VANCOMYCIN 1,500 MG/300 ML PIGGYBACK 200 MG IV (13:50)
--- NOTE | 2023-05-15 13:52 | PC.NURSE ---
Pt arrives via EMS on CPAP. Visibly distressed, reports he has never been intubated for his resp issues. h/o COPD, CHF, and parkinsons, pulm edema. Awake alert to verbal and answering simple questions, RT in room and switched to Bipap I:E 20/06, agitated and given ativan per MAR. Appearing more comfortable. Noted to have mixon which patient states has been in place for 3 months. Securement device visibly old and soiled and port covered with bandaid. Mixon removed and replaced. Urine sample sent. Noted to have pressure wound on L inner thigh were catheter was rubberbanded to leg. EMS IV dislodged in LAC. removed and dressing applied. Pt with 18G LFA and 18G R wrist established. Labs drawn and sent. CXR obtained. BP 90/[address] made aware. 1L NS bolus infusing with ABX. afebrile. refusing blankets. Verbal consent for central line if needed in future. Full code.
[2023-05-15 13:53] LABS: Alanine Aminotransferase 20 IU/L (<50)
--- NOTE | 2023-05-15 13:55 | PC.NURSE ---
MD aware that mixon catheter had to be replaced due to pressure injury on left leg, three months old, and leaking.
[2023-05-15 13:59] LABS: NT-proBNP (BNP-Adult 18+) 682 pg/mL (<125); Troponin I < 0.012 ng/mL (0.01-0.034)
[2023-05-15 14:03] LABS: Procalcitonin 0.12 ng/mL (<0.5)
[2023-05-15 14:12] LABS: Adenovirus Not Detected (Not Detect); B. parapertussis Not Detected (Not Detecte); Bordetella pertussis Not Detected (Not Detect); Chlamydophila pneumoniae Not Detected (Not Detect); Coronavirus 229E Not Detected (Not Detect); Coronavirus HKU1 Not Detected (Not Detect); Coronavirus NL 63 Not Detected (Not Detect); Coronavirus OC43 Not Detected (Not Detect); Human Metapneumovirus Not Detected (Not Detect); Human Rhinovirus/Enterovirus Not Detected (Not Detect); Influenza A Not Detected (Not Detect); Influenza B Not Detected (Not Detect); Mycoplasma pneumoniae Not Detected (Not Detect); Parainfluenza Virus 1 Not Detected (Not Detect); Parainfluenza Virus 2 Not Detected (Not Detect); Parainfluenza Virus 3 Not Detected (Not Detect); Parainfluenza Virus 4 Not Detected (Not Detect); Respiratory Syncytial Virus Not Detected (Not Detect); SARS- CoV-2 Not Detected (Not Detecte)
--- NOTE | 2023-05-15 14:32 | PC.NURSE ---
PT IS ON bIPAP 14/5, RATE 12.
[2023-05-15 14:57] LABS: Reflexed Lactate in 2 Hours Y
[2023-05-15] MEDS: SODIUM CHLORIDE 0.9% 1,000 ML 500 ML IV (14:57)
--- NOTE | 2023-05-15 15:07 | P.HP_ITS ---
History of Present Illness History of Present Illness Date Patient Seen: 05/15/23 Chief complaint: Resp Distress Narrative: The patient was a 73-year-old male with a history of CHF (diastolic), Parkinson's disease, hypertension, DM 2, prostate cancer, urinary retention, recurrent UTI, dyslipidemia, and pacemaker who presented with respiratory distress. He would called 911. He had a similar episode in March 2023 requiring high-flow oxygen in context of sepsis with ESBL urinary tract infection. The patient responded to ertapenem during that encounter. Today EMS found him to be in respiratory distress and have some wheezing. He was treated with nebs and then placed on noninvasive positive pressure ventilation. The patient was hypotensive. In the emergency department he was switched to BiPAP and given a fluid bolus with improvement of his blood pressure and a subsequent map of over 90. The patient does note intermittent catheter drainage dysfunction. He denies fevers or chills. Upon arrival in the CCU the patient is off from oxygen briefly and states he feels weak. He has not clearly short of breath but does appear anxious. He denies any chest pain or abdominal pain. He is really unable to provide much in terms of information. His notes he has been ill for about 2 days with primarily shortness of breath. He has not able to answer any other review of systems questions. He was placed on BiPAP shortly after arrival for his comfort. He was not hypoxic but did have labored breathing. [facility] Medical History History of urinary retention Hyperlipidemia History of nephrolithiasis Left nephrolithiasis Urinary retention Recurrent UTI History of prostate cancer Acne Shoulder pain Ankle pain Measles Chicken pox Prostate cancer (~2010) Anemia Benign prostatic hyperplasia GERD (gastroesophageal reflux disease) Hypertension Type 2 diabetes mellitus Parkinson's disease Congestive heart failure Surgical History History of prostate biopsy Anesthesia History of knee surgery Kidney stones Family History Father Stroke Hypertension Bacterial UTI Mother Cancer Sister Hypertension Aunt Diabetes mellitus Uncle Kidney stones Social History marital status: number of children: 3 household members: spouse Smoking Status: Former smoker alcohol intake: never Type(s) of exercise: walking frequency: 1-2 times per week Meds Home Medications and Allergies Home Medications Medication Instructions Recorded Confirmed Type latanoprost 0.005 % eye drops 1 drp DAILY 06/02/22 05/15/23 History timolol maleate 0.5 % eye drops 1 drp ophthalmic (eye) DAILY 06/02/22 05/15/23 History aspirin 81 mg tablet,delayed 81 mg PO DAILY 10/21/22 05/15/23 History release (Adult Low Dose Aspirin) atorvastatin 10 mg tablet 10 mg PO DAILY #90 tabs 12/14/22 05/15/23 Rx metformin 850 mg tablet 850 mg PO TID #240 tabs 01/03/23 05/15/23 Rx losartan 50 mg tablet 50 mg PO DAILY #90 tabs 01/11/23 05/15/23 Rx omeprazole 20 mg capsule,delayed 20 mg PO DAILY #90 caps 01/17/23 05/15/23 Rx release potassium citrate 10 mEq (1,080 10 meq PO BID #180 tabs 01/17/23 05/15/23 Rx mg) tablet,extended release tamsulosin 0.4 mg capsule 0.8 mg (2 x 0.4 mg) PO DAILY #180 01/17/23 05/15/23 Rx caps gabapentin 100 mg capsule 100 mg PO 3XD #270 caps 02/01/23 05/15/23 Rx acetaminophen 500 mg tablet 500 mg PO Q6H PRN Pain (Scale 04/03/23 05/15/23 History (Acetaminophen Extra Strength) Score 4-6) carbidopa 25 mg-levodopa 100 mg See Rx Instructions .Route .COMPLEX 04/03/23 05/15/23 History tablet carbidopa ER 25 mg-levodopa 100 mg 1 tab PO BID 04/03/23 05/15/23 History tablet,extended release cranberry 400 mg capsule 400 mg PO DAILY 04/03/23 05/15/23 History hydrocodone 5 mg-acetaminophen 325 1 tab PO Q4HR PRN Pain, Moderate 04/06/23 05/15/23 Rx mg tablet (4-6) #30 tabs temazepam 15 mg capsule 15 mg PO BEDTIME PRN Sleep #30 caps 04/06/23 05/15/23 Rx finasteride 5 mg tablet 5 mg PO DAILY 05/15/23 05/15/23 History insulin glargine 100 unit/mL (3 See Rx Instructions .Route .COMPLEX 05/15/23 05/15/23 History mL) subcutaneous pen (Lantus Solostar U-100 Insulin) Allergies Allergy/AdvReac Type Severity Reaction Status Date / Time No Known Drug Allergies Allergy Verified 05/05/23 14:25 Review of Systems Review of Systems Narrative: Difficult to obtain due to his mental status and degree of discomfort. Exam Vital Signs (past 8 hours): - 05/15/23 13:00 05/15/23 13:02 05/15/23 13:05 Temperature 98.0 F Pulse Rate 118 H 112 H 112 H Respiratory Rate 30 H 36 H Blood Pressure 99/54 L Pulse Oximetry 98 99 99 Oxygen Delivery Method CPAP Fraction of Inspired Oxygen 05/15/23 13:10 05/15/23 13:10 05/15/23 13:14 Temperature Pulse Rate 110 H Respiratory Rate 33 H Blood Pressure 99/50 L 96/52 L Pulse Oximetry 98 Oxygen Delivery Method Fraction of Inspired Oxygen 05/15/23 13:14 05/15/23 13:15 05/15/23 13:15 Temperature Pulse Rate 109 H 109 H Respiratory Rate 34 H 34 H Blood Pressure 99/50 L Pulse Oximetry 99 98 Oxygen Delivery Method Fraction of Inspired Oxygen 05/15/23 13:18 05/15/23 13:18 05/15/23 13:20 Temperature Pulse Rate 108 H 106 H Respiratory Rate 33 H 35 H Blood Pressure 89/50 L Pulse Oximetry 98 98 Oxygen Delivery Method Fraction of Inspired Oxygen 05/15/23 13:21 05/15/23 13:21 05/15/23 13:25 Temperature Pulse Rate 106 H 106 H Respiratory Rate 33 H 34 H Blood Pressure 104/50 L Pulse Oximetry 97 Oxygen Delivery Method Fraction of Inspired Oxygen 05/15/23 13:30 05/15/23 13:35 05/15/23 13:40 Temperature Pulse Rate 53 L 113 H 113 H Respiratory Rate Blood Pressure Pulse Oximetry 97 99 99 Oxygen Delivery Method Fraction of Inspired Oxygen 05/15/23 13:45 05/15/23 13:49 05/15/23 13:49 Temperature Pulse Rate 108 H 105 H Respiratory Rate 28 H 35 H Blood Pressure 106/58 L Pulse Oximetry 100 99 Oxygen Delivery Method BiPAP Fraction of Inspired Oxygen 05/15/23 13:52 05/15/23 13:52 05/15/23 14:00 Temperature Pulse Rate 102 H 101 H Respiratory Rate 29 H 31 H Blood Pressure 103/55 L Pulse Oximetry 99 99 Oxygen Delivery Method Fraction of Inspired Oxygen 05/15/23 14:01 05/15/23 14:01 05/15/23 14:15 Temperature Pulse Rate 100 H 97 H Respiratory Rate 32 H 34 H Blood Pressure 96/60 Pulse Oximetry 98 98 Oxygen Delivery Method Fraction of Inspired Oxygen 05/15/23 14:16 05/15/23 14:16 05/15/23 14:30 Temperature Pulse Rate 97 H 95 H Respiratory Rate 33 H 36 H Blood Pressure 95/69 Pulse Oximetry 98 99 Oxygen Delivery Method Fraction of Inspired Oxygen 05/15/23 14:38 05/15/23 14:38 05/15/23 14:45 Temperature Pulse Rate 95 H 94 H Respiratory Rate 24 38 H Blood Pressure 134/72 Pulse Oximetry 98 99 Oxygen Delivery Method Fraction of Inspired Oxygen Fraction of Inspired Oxygen 28 Oxygen Delivery Method BiPAP Narrative Exam Narrative: NAD, alert and oriented, fluent speech, calm. Chronically ill in appearance and somewhat anxious. Normocephalic skull, EOMI, anicteric sclera, symmetric pupils. Oropharynx unremarkable, no droop. Neck supple, midline trachea, no adenopathy. Lungs clear with some scattered wheezing, normal rate and effort. Heart regular, no murmur gallop or rub. Abdomen is soft, non distended and non tender. Extremities are free of edema. Skin is free of rash or lesions. Joints are not swollen or deformed. Judgment appears to be normal. Objective Imaging Chest x-ray: Radiologist's impression: Cardiomegaly and mild vascular congestion accentuated by low lung volumes Labs 05/15/23 13:17 05/15/23 13:17 Labs: Laboratory Results - last 24 hr 05/15/23 05/15/23 05/15/23 13:07 13:14 13:17 WBC 15.8 H RBC 3.65 L Hgb 10.3 L Hct 31.4 L MCV 86.1 MCH 28.1 MCHC 32.7 RDW 16.5 H Plt Count 273 Neut % (Auto) 89.0 H Lymph % (Auto) 5.0 L [place] % (Auto) 5.0 Eos % (Auto) 0.5 L Baso % (Auto) 0.5 Neut # (Auto) 11973 H Lymph # (Auto) 800 L [place] # (Auto) 800 Eos # (Auto) 100 Baso # (Auto) 100 PT 12.8 H INR 1.1 APTT 31 ABG Sample Site Right radial ABG pH 7.32 L ABG pCO2 22.0 L* ABG pO2 126 H ABG HCO3 11 L ABG Total CO2 12 L ABG O2 Saturation 99 ABG Base Excess -15.0 L FiO2 35 Sodium 136 L Potassium 4.2 Chloride 107 Carbon Dioxide 10 L BUN 27 H Creatinine 1.40 H Estimated GFR 53 L BUN/Creatinine Ratio 19.3 Glucose 165 H Lactate 10.6 H* Calcium 9.6 Total Bilirubin 0.7 AST 27 ALT 20 Alkaline Phosphatase 86 Total Creatine Kinase 93 Troponin I < 0.012 NT-Pro-B Natriuret Pep 682 H Total Protein 6.8 Albumin 3.7 Globulin 3.1 Albumin/Globulin Ratio 1.2 Procalcitonin 0.12 Urine Color Yellow Urine Appearance Cloudy Urine pH 7.5 Ur Specific Portal 1.015 Urine Protein 2+ H Urine Glucose (UA) Negative Urine Ketones Negative Urine Occult Blood Trace-intact Urine Nitrate Positive H Urine Bilirubin Negative Urine Urobilinogen 0.2 Ur Leukocyte Esterase 1+ H Urine RBC 1-5/hpf Urine WBC 5-10/hpf H Ur Squamous Epith Cells None seen Urine Bacteria Many (>30) H Ur Culture Indicated? Specimen cultured Vol Urine Centrifuged 10ml (spun) Chlamy pneumoniae PCR Adenovirus (PCR) B.parapertussis DNA PCR Coronavirus OC43 (PCR) Coronavirus HKU1 (PCR) Coronavirus 229E (PCR) SARS-CoV-2 (PCR) Coronavirus NL63 (PCR) Human Metapneumovir PCR Influenza Type A (PCR) Influenza Type B (PCR) M. pneumoniae (PCR) Parainfluenza 1 (PCR) Parainfluenza 2 (PCR) Parainfluenza 3 (PCR) Parainfluenza 4 (PCR) RSV (PCR) Entero/Rhino (PCR) 05/15/23 13:21 WBC RBC Hgb Hct MCV MCH MCHC RDW Plt Count Neut % (Auto) Lymph % (Auto) [place] % (Auto) Eos % (Auto) Baso % (Auto) Neut # (Auto) Lymph # (Auto) [place] # (Auto) Eos # (Auto) Baso # (Auto) PT INR APTT ABG Sample Site ABG pH ABG pCO2 ABG pO2 ABG HCO3 ABG Total CO2 ABG O2 Saturation ABG Base Excess FiO2 Sodium Potassium Chloride Carbon Dioxide BUN Creatinine Estimated GFR BUN/Creatinine Ratio Glucose Lactate Calcium Total Bilirubin AST ALT Alkaline Phosphatase Total Creatine Kinase Troponin I NT-Pro-B Natriuret Pep Total Protein Albumin Globulin Albumin/Globulin Ratio Procalcitonin Urine Color Urine Appearance Urine pH Ur Specific Portal Urine Protein Urine Glucose (UA) Urine Ketones Urine Occult Blood Urine Nitrate Urine Bilirubin Urine Urobilinogen Ur Leukocyte Esterase Urine RBC Urine WBC Ur Squamous Epith Cells Urine Bacteria Ur Culture Indicated? Vol Urine Centrifuged Chlamy pneumoniae PCR Not detected Adenovirus (PCR) Not detected B.parapertussis DNA PCR Not detected Coronavirus OC43 (PCR) Not detected Coronavirus HKU1 (PCR) Not detected Coronavirus 229E (PCR) Not detected SARS-CoV-2 (PCR) Not detected Coronavirus NL63 (PCR) Not detected Human Metapneumovir PCR Not detected Influenza Type A (PCR) Not detected Influenza Type B (PCR) Not detected M. pneumoniae (PCR) Not detected Parainfluenza 1 (PCR) Not detected Parainfluenza 2 (PCR) Not detected Parainfluenza 3 (PCR) Not detected Parainfluenza 4 (PCR) Not detected RSV (PCR) Not detected Entero/Rhino (PCR) Not detected Assessment & Plan Assessment & Plan narrative: 1. Sepsis with lactic acidosis, leukocytosis, and tachypnea with a suspected infective source of pyelonephritis (recent ESBL), present on admission and active. 2. Volume responsive hypotension, present on admission and active. 3. Acute hypoxic respiratory failure, present on admission and active. 4. Severe lactic acidosis, present on admission and active. 5. Acute on chronic diastolic heart failure, present on admission and active. 6. UTI with history of ESBL (UA pos for Nitrite, protein, LE, WBC's, and many bacteria), present on admission and active. 7. Hypertension, not active at the time of admission. 8. Parkinson's disease, present on admission and active. 9. Urine retention, present on admission and active. 10. Hyperlipidemia, present on admission stable. 11. Insulin-dependent diabetes mellitus 2, present on admission and active. PLAN: -broad-spectrum antibiotics with ertapenem, follow up blood and urine cultures. -fluid resuscitation to maintain map of over 65. -BiPAP and oxygen to maintain comfort of breathing and saturations of 90%. -fluid resuscitation and trend lactic acid to normalization. -trend troponins. -wean oxygen as able. -hold hypertension medications. -diuresis when appropriate, likely 1-2 days. He is full resuscitation and would be intubated if needed. This is all confirmed at the time of admission. His is present, proxy. He is placed in the hospital under inpatient status, with an anticipated 2 midnights of medical necessity for hospital level surfaces. Time Spent With Patient Time with patient: 30 to 49 minutes with 50% spent counseling/coordinating care Quality MIPS - Admit I confirm the patient?s Advance Care Plan is present, Code status is documented, Surrogate decision maker is in patient?s record [If Yes, STOP here]: Yes MIPS - Meds 'Current medications' to include all prescriptions, [id number] products, herbals, cannabis/cannabidiol products, and vitamin/mineral/dietary (nutritional) supplements. I have utilized all available resources to obtain, update, or review the patient?s current medications. [If Yes, STOP here]: Yes
--- NOTE | 2023-05-15 15:26 | PC.NURSE ---
pt taken off bipap . on Room air for about 15 mins. Spo2 95 percent . pt states he is feeling good
[2023-05-15 15:43] LABS: Lactate 2HR (Lactic Acid Rflx) 4.2 mmol/L (0.7-2.1)
[2023-05-15 16:42] LABS: Troponin I 0.021 ng/mL (0.01-0.034)
[2023-05-15 18:15] LABS: MRSA (Nasal) PCR Not Detected (Not Detect)
[2023-05-15 18:55] LABS: Lactate (Lactic Acid) 2.7 mmol/L (0.7-2.1)
[2023-05-15 20:18] LABS: Reflexed Lactate in 2 Hours Y
[2023-05-15 20:54] LABS: Lactate 2HR (Lactic Acid Rflx) 2.3 mmol/L (0.7-2.1)
[2023-05-15] MEDS: HEPARIN 5,000 UNIT/ML VIAL 5000 UNIT SUBCUT (21:08)
[2023-05-15] MEDS: INSULIN GLARGINE 100 UNIT/ML 3ML PEN 40 UNIT SUBCUT (21:09)
[2023-05-15] MEDS: GABAPENTIN 100 MG CAPSULE PO (21:09)
[2023-05-15] MEDS: CARBIDOPA-LEVODOPA 25/100 TABLET 2.5 EACH PO (22:06)
[2023-05-16] VITALS (76 sets, daily range): BP systolic 97–210; BP diastolic 55–88; PULSE 67–95; RESP 14–35; TEMP 36.6–36.8; O2SAT 84–99
[2023-05-16 00:02] LABS: Troponin I 0.026 ng/mL (0.01-0.034)
--- NOTE | 2023-05-16 00:38 | PC.NURSE ---
[id number]--pt's son returned call from earlier this shift; nurse requesting pt's home med carb/lev ER be brought from home; son verbalized understanding and they will bring the med in the morning
[2023-05-16] MEDS: LOSARTAN 50 MG TABLET PO ×2 (01:35→09:03)
--- NOTE | 2023-05-16 01:41 | PC.NURSE ---
pt's b/p 181/80; Dr Dela Cruz notified; pt medicated w/ Losartan 50mg po
[2023-05-16 04:36] LABS: Add Manual Diff / Slide Review NO; Basophils Absolute Auto 100 /uL (0-100); Basophils Percent Auto 0.9 % (0-2); Eosinophils Absolute Auto 100 /uL (0-450); Hematocrit 31.3 % (41-53); Hemoglobin 10.5 g/dL (13.5-17.5); Lymphocytes Absolute Auto 1500 /uL (1100-4500); Lymphocytes Percent Auto 16.4 % (25-40); Mean Corpuscular HGB Conc 33.6 % (30-36); Mean Corpuscular Hemoglobin 28.2 PG (26-34); Mean Corpuscular Volume 83.7 fL (80-100); Monocytes Absolute Auto 600 /uL (0-900); Monocytes Percent Auto 6.8 % (3-14); Neutrophils Absolute Auto 6900 /uL (1500-7000); Neutrophils Percent Auto 74.9 % (50-75); Platelet Count 245 X10^3/uL (150-400); Red Blood Cell Count 3.73 X10^6/uL (4.5-5.9); White Blood Cell Count 9.2 X10^3/uL (4.5-11.0)
[2023-05-16 04:54] LABS: BUN Creatinine Ratio 26.5 (6-22); Blood Urea Nitrogen 22 mg/dL (9-20); Calcium 9.5 mg/dL (8.4-10.2); Carbon Dioxide 26 mmol/L (22-32); Chloride 108 mmol/L (98-107); Estimated Glomerular Filt Rate > 60 mL/min (>60); Glucose 77 mg/dL (80-110); HEMOLYSIS < 15 (0-50); Potassium 3.8 mmol/L (3.4-5.1); Sodium 139 mmol/L (137-145)
[2023-05-16] MEDS: CARBIDOPA-LEVODOPA 25/100 TABLET 3 EACH PO ×2 (06:29→14:00)
[2023-05-16] MEDS: DEXTROSE 10 % IN WATER 100 ML 999 ML IV (08:02)
--- NOTE | 2023-05-16 08:12 | PM.PN.1 ---
Subjective Subjective Interval history: Patient feeling well today. Downgraded from ICU status. Urine cutlure with GNB and blood cultures negative at 24 hours. Exam Vital Signs (past 8 hours): - 05/16/23 00:15 05/16/23 00:30 05/16/23 00:45 Temperature Pulse Rate 91 H 92 H 95 H Respiratory Rate 26 H 24 20 Blood Pressure Pulse Oximetry 95 96 Oxygen Delivery Method Oxygen Flow Rate Fraction of Inspired Oxygen 05/16/23 01:00 05/16/23 01:00 05/16/23 01:02 Temperature Pulse Rate 92 H 92 H Respiratory Rate 20 24 Blood Pressure 172/75 H Pulse Oximetry 96 95 Oxygen Delivery Method Oxygen Flow Rate Fraction of Inspired Oxygen 05/16/23 01:02 05/16/23 01:04 05/16/23 01:04 Temperature Pulse Rate 93 H Respiratory Rate 28 H Blood Pressure 188/80 H 181/80 H Pulse Oximetry 96 Oxygen Delivery Method Oxygen Flow Rate Fraction of Inspired Oxygen 05/16/23 01:07 05/16/23 01:15 05/16/23 01:30 Temperature Pulse Rate 91 H 91 H Respiratory Rate 23 25 H Blood Pressure Pulse Oximetry 96 97 Oxygen Delivery Method Nasal Cannula Oxygen Flow Rate 2 Fraction of Inspired Oxygen 05/16/23 01:35 05/16/23 01:45 05/16/23 02:00 Temperature Pulse Rate 88 86 Respiratory Rate 19 Blood Pressure 181/80 H Pulse Oximetry 96 Oxygen Delivery Method Nasal Cannula Oxygen Flow Rate Fraction of Inspired Oxygen 05/16/23 02:00 05/16/23 02:01 05/16/23 02:01 Temperature Pulse Rate 87 89 Respiratory Rate 27 H Blood Pressure 145/68 H Pulse Oximetry 95 96 Oxygen Delivery Method Oxygen Flow Rate Fraction of Inspired Oxygen 05/16/23 02:15 05/16/23 02:30 05/16/23 02:45 Temperature Pulse Rate 85 80 79 Respiratory Rate 19 24 28 H Blood Pressure Pulse Oximetry 98 97 96 Oxygen Delivery Method Oxygen Flow Rate Fraction of Inspired Oxygen 05/16/23 03:00 05/16/23 03:00 05/16/23 03:15 Temperature Pulse Rate 78 78 Respiratory Rate 20 16 Blood Pressure 105/55 L Pulse Oximetry 98 98 Oxygen Delivery Method Oxygen Flow Rate Fraction of Inspired Oxygen 05/16/23 03:30 05/16/23 03:45 05/16/23 04:00 Temperature Pulse Rate 77 77 Respiratory Rate 17 15 Blood Pressure 147/74 H Pulse Oximetry 98 98 Oxygen Delivery Method Oxygen Flow Rate Fraction of Inspired Oxygen 05/16/23 04:00 05/16/23 04:15 05/16/23 04:30 Temperature Pulse Rate 76 74 74 Respiratory Rate 16 15 16 Blood Pressure Pulse Oximetry 99 98 97 Oxygen Delivery Method Oxygen Flow Rate Fraction of Inspired Oxygen 05/16/23 04:45 05/16/23 05:00 05/16/23 05:00 Temperature 97.9 F Pulse Rate 72 Respiratory Rate 16 Blood Pressure 174/79 H Pulse Oximetry 97 Oxygen Delivery Method Oxygen Flow Rate Fraction of Inspired Oxygen 05/16/23 05:00 05/16/23 05:15 05/16/23 05:30 Temperature Pulse Rate 72 72 71 Respiratory Rate 17 20 27 H Blood Pressure Pulse Oximetry 97 97 Oxygen Delivery Method Oxygen Flow Rate Fraction of Inspired Oxygen 05/16/23 05:45 05/16/23 06:00 05/16/23 06:00 Temperature Pulse Rate 71 71 Respiratory Rate 19 19 Blood Pressure Pulse Oximetry 98 98 Oxygen Delivery Method Nasal Cannula Oxygen Flow Rate Fraction of Inspired Oxygen 05/16/23 06:00 05/16/23 06:15 05/16/23 06:15 Temperature Pulse Rate 71 Respiratory Rate 18 Blood Pressure 173/78 H 163/76 H Pulse Oximetry 98 Oxygen Delivery Method Oxygen Flow Rate Fraction of Inspired Oxygen 05/16/23 06:30 05/16/23 07:07 Temperature Pulse Rate 72 74 Respiratory Rate 18 Blood Pressure Pulse Oximetry 98 97 Oxygen Delivery Method Nasal Cannula Oxygen Flow Rate 2 Fraction of Inspired Oxygen 28 Fraction of Inspired Oxygen 28 SaO2/FiO2 Ratio 346 Oxygen Delivery Method Nasal Cannula Oxygen Flow Rate 2 Narrative Exam Narrative: NAD, alert and oriented, fluent speech, calm. Chronically ill in appearance and somewhat anxious. Normocephalic skull, EOMI, anicteric sclera, symmetric pupils. Oropharynx unremarkable, no droop. Neck supple, midline trachea, no adenopathy. Lungs clear with some scattered wheezing, normal rate and effort. Heart regular, no murmur gallop or rub. Abdomen is soft, non distended and non tender. Extremities are free of edema. Skin is free of rash or lesions. Joints are not swollen or deformed. Judgment appears to be normal. Objective Labs 05/16/23 04:06 05/16/23 04:06 Labs: Laboratory Results - last 24 hr 05/15/23 05/15/23 05/15/23 13:07 13:14 13:17 WBC 15.8 H RBC 3.65 L Hgb 10.3 L Hct 31.4 L MCV 86.1 MCH 28.1 MCHC 32.7 RDW 16.5 H Plt Count 273 Neut % (Auto) 89.0 H Lymph % (Auto) 5.0 L [place] % (Auto) 5.0 Eos % (Auto) 0.5 L Baso % (Auto) 0.5 Neut # (Auto) 53438 H Lymph # (Auto) 800 L [place] # (Auto) 800 Eos # (Auto) 100 Baso # (Auto) 100 PT 12.8 H INR 1.1 APTT 31 ABG Sample Site Right radial ABG pH 7.32 L ABG pCO2 22.0 L* ABG pO2 126 H ABG HCO3 11 L ABG Total CO2 12 L ABG O2 Saturation 99 ABG Base Excess -15.0 L FiO2 35 Sodium 136 L Potassium 4.2 Chloride 107 Carbon Dioxide 10 L BUN 27 H Creatinine 1.40 H Estimated GFR 53 L BUN/Creatinine Ratio 19.3 Glucose 165 H Lactate 10.6 H* Calcium 9.6 Total Bilirubin 0.7 AST 27 ALT 20 Alkaline Phosphatase 86 Total Creatine Kinase 93 Troponin I < 0.012 NT-Pro-B Natriuret Pep 682 H Total Protein 6.8 Albumin 3.7 Globulin 3.1 Albumin/Globulin Ratio 1.2 Procalcitonin 0.12 Urine Color Yellow Urine Appearance Cloudy Urine pH 7.5 Ur Specific [place] 1.015 Urine Protein 2+ H Urine Glucose (UA) Negative Urine Ketones Negative Urine Occult Blood Trace-intact Urine Nitrate Positive H Urine Bilirubin Negative Urine Urobilinogen 0.2 Ur Leukocyte Esterase 1+ H Urine RBC 1-5/hpf Urine WBC 5-10/hpf H Ur Squamous Epith Cells None seen Urine Bacteria Many (>30) H Ur Culture Indicated? Specimen cultured Vol Urine Centrifuged 10ml (spun) Nasal Screen MRSA (PCR) Chlamy pneumoniae PCR Adenovirus (PCR) B.parapertussis DNA PCR Coronavirus OC43 (PCR) Coronavirus HKU1 (PCR) Coronavirus 229E (PCR) SARS-CoV-2 (PCR) Coronavirus NL63 (PCR) Human Metapneumovir PCR Influenza Type A (PCR) Influenza Type B (PCR) M. pneumoniae (PCR) Parainfluenza 1 (PCR) Parainfluenza 2 (PCR) Parainfluenza 3 (PCR) Parainfluenza 4 (PCR) RSV (PCR) Entero/Rhino (PCR) 05/15/23 05/15/23 05/15/23 13:21 15:14 15:55 WBC RBC Hgb Hct MCV MCH MCHC RDW Plt Count Neut % (Auto) Lymph % (Auto) [place] % (Auto) Eos % (Auto) Baso % (Auto) Neut # (Auto) Lymph # (Auto) [place] # (Auto) Eos # (Auto) Baso # (Auto) PT INR APTT ABG Sample Site ABG pH ABG pCO2 ABG pO2 ABG HCO3 ABG Total CO2 ABG O2 Saturation ABG Base Excess FiO2 Sodium Potassium Chloride Carbon Dioxide BUN Creatinine Estimated GFR BUN/Creatinine Ratio Glucose Lactate 4.2 H* Calcium Total Bilirubin AST ALT Alkaline Phosphatase Total Creatine Kinase Troponin I NT-Pro-B Natriuret Pep Total Protein Albumin Globulin Albumin/Globulin Ratio Procalcitonin Urine Color Urine Appearance Urine pH Ur Specific [place] Urine Protein Urine Glucose (UA) Urine Ketones Urine Occult Blood Urine Nitrate Urine Bilirubin Urine Urobilinogen Ur Leukocyte Esterase Urine RBC Urine WBC Ur Squamous Epith Cells Urine Bacteria Ur Culture Indicated? Vol Urine Centrifuged Nasal Screen MRSA (PCR) Not detected Chlamy pneumoniae PCR Not detected Adenovirus (PCR) Not detected B.parapertussis DNA PCR Not detected Coronavirus OC43 (PCR) Not detected Coronavirus HKU1 (PCR) Not detected Coronavirus 229E (PCR) Not detected SARS-CoV-2 (PCR) Not detected Coronavirus NL63 (PCR) Not detected Human Metapneumovir PCR Not detected Influenza Type A (PCR) Not detected Influenza Type B (PCR) Not detected M. pneumoniae (PCR) Not detected Parainfluenza 1 (PCR) Not detected Parainfluenza 2 (PCR) Not detected Parainfluenza 3 (PCR) Not detected Parainfluenza 4 (PCR) Not detected RSV (PCR) Not detected Entero/Rhino (PCR) Not detected 05/15/23 05/15/23 05/15/23 16:10 18:30 20:35 WBC RBC Hgb Hct MCV MCH MCHC RDW Plt Count Neut % (Auto) Lymph % (Auto) [place] % (Auto) Eos % (Auto) Baso % (Auto) Neut # (Auto) Lymph # (Auto) [place] # (Auto) Eos # (Auto) Baso # (Auto) PT INR APTT ABG Sample Site ABG pH ABG pCO2 ABG pO2 ABG HCO3 ABG Total CO2 ABG O2 Saturation ABG Base Excess FiO2 Sodium Potassium Chloride Carbon Dioxide BUN Creatinine Estimated GFR BUN/Creatinine Ratio Glucose Lactate 2.7 H 2.3 H Calcium Total Bilirubin AST ALT Alkaline Phosphatase Total Creatine Kinase Troponin I 0.021 NT-Pro-B Natriuret Pep Total Protein Albumin Globulin Albumin/Globulin Ratio Procalcitonin Urine Color Urine Appearance Urine pH Ur Specific [place] Urine Protein Urine Glucose (UA) Urine Ketones Urine Occult Blood Urine Nitrate Urine Bilirubin Urine Urobilinogen Ur Leukocyte Esterase Urine RBC Urine WBC Ur Squamous Epith Cells Urine Bacteria Ur Culture Indicated? Vol Urine Centrifuged Nasal Screen MRSA (PCR) Chlamy pneumoniae PCR Adenovirus (PCR) B.parapertussis DNA PCR Coronavirus OC43 (PCR) Coronavirus HKU1 (PCR) Coronavirus 229E (PCR) SARS-CoV-2 (PCR) Coronavirus NL63 (PCR) Human Metapneumovir PCR Influenza Type A (PCR) Influenza Type B (PCR) M. pneumoniae (PCR) Parainfluenza 1 (PCR) Parainfluenza 2 (PCR) Parainfluenza 3 (PCR) Parainfluenza 4 (PCR) RSV (PCR) Entero/Rhino (PCR) 05/15/23 05/16/23 23:30 04:06 WBC 9.2 RBC 3.73 L Hgb 10.5 L Hct 31.3 L MCV 83.7 MCH 28.2 MCHC 33.6 RDW 17.0 H Plt Count 245 Neut % (Auto) 74.9 Lymph % (Auto) 16.4 L [place] % (Auto) 6.8 Eos % (Auto) 1.0 L Baso % (Auto) 0.9 Neut # (Auto) 6900 Lymph # (Auto) 1500 [place] # (Auto) 600 Eos # (Auto) 100 Baso # (Auto) 100 PT INR APTT ABG Sample Site ABG pH ABG pCO2 ABG pO2 ABG HCO3 ABG Total CO2 ABG O2 Saturation ABG Base Excess FiO2 Sodium 139 Potassium 3.8 Chloride 108 H Carbon Dioxide 26 BUN 22 H Creatinine 0.83 Estimated GFR > 60 BUN/Creatinine Ratio 26.5 H Glucose 77 L Lactate Calcium 9.5 Total Bilirubin AST ALT Alkaline Phosphatase Total Creatine Kinase Troponin I 0.026 NT-Pro-B Natriuret Pep Total Protein Albumin Globulin Albumin/Globulin Ratio Procalcitonin Urine Color Urine Appearance Urine pH Ur Specific [place] Urine Protein Urine Glucose (UA) Urine Ketones Urine Occult Blood Urine Nitrate Urine Bilirubin Urine Urobilinogen Ur Leukocyte Esterase Urine RBC Urine WBC Ur Squamous Epith Cells Urine Bacteria Ur Culture Indicated? Vol Urine Centrifuged Nasal Screen MRSA (PCR) Chlamy pneumoniae PCR Adenovirus (PCR) B.parapertussis DNA PCR Coronavirus OC43 (PCR) Coronavirus HKU1 (PCR) Coronavirus 229E (PCR) SARS-CoV-2 (PCR) Coronavirus NL63 (PCR) Human Metapneumovir PCR Influenza Type A (PCR) Influenza Type B (PCR) M. pneumoniae (PCR) Parainfluenza 1 (PCR) Parainfluenza 2 (PCR) Parainfluenza 3 (PCR) Parainfluenza 4 (PCR) RSV (PCR) Entero/Rhino (PCR) [facility] Medical History History of urinary retention Hyperlipidemia History of nephrolithiasis Left nephrolithiasis Urinary retention Recurrent UTI History of prostate cancer Acne Shoulder pain Ankle pain Measles Chicken pox Prostate cancer (~2010) Anemia Benign prostatic hyperplasia GERD (gastroesophageal reflux disease) Hypertension Type 2 diabetes mellitus Parkinson's disease Congestive heart failure Surgical History History of prostate biopsy Anesthesia History of knee surgery Kidney stones Family History Father Stroke Hypertension Bacterial UTI Mother Cancer Sister Hypertension Aunt Diabetes mellitus Uncle Kidney stones Social History marital status: number of children: 3 household members: spouse Smoking Status: Former smoker alcohol intake: never Type(s) of exercise: walking frequency: 1-2 times per week Assessment & Plan Assessment & Plan narrative: 1. Sepsis with lactic acidosis, leukocytosis, and tachypnea with a suspected infective source of pyelonephritis (recent ESBL), present on admission and sepsis resolved. 2. Volume responsive hypotension, present on admission and active. 3. Acute hypoxic respiratory failure, present on admission and active. 4. Severe lactic acidosis, present on admission and active. 5. Acute on chronic diastolic heart failure, present on admission and active. 6. UTI with history of ESBL (UA pos for Nitrite, protein, LE, WBC's, and many bacteria), present on admission and active. 7. Hypertension, not active at the time of admission. 8. Parkinson's disease, present on admission and active. 9. Urine retention, present on admission and active. 10. Hyperlipidemia, present on admission stable. 11. Insulin-dependent diabetes mellitus 2, present on admission and active. PLAN: -broad-spectrum antibiotics with meropenem, urine cultures with GNB possibly ESBL vs pseudomonas as patient has h/o both in urine -trend troponins. -wean oxygen as able. -restart home losartan -start IV lasix 20mg daily -will likely need PICC and ID following with home abx if ESBL requiring daily ertapenem He is full resuscitation and would be intubated if needed. This is all confirmed at the time of admission. His is present, proxy. Time Spent With Patient Time with patient: 30 to 49 minutes with 50% spent counseling/coordinating care Quality VTE Deep Vein Thrombosis/Pulmonary Embolism Present on Admission: No
[2023-05-16] MEDS: MEROPENEM 1 GM in SODIUM CHLORIDE 0.9% 100 ML IV ×2 (09:03→16:19)
[2023-05-16] MEDS: ASPIRIN EC 81 MG TABLET PO (09:03)
[2023-05-16] MEDS: ATORVASTATIN 20 MG TABLET 10 MG PO (09:04)
[2023-05-16] MEDS: CARBIDOPA-LEVODOPA ER 50/200 TABLET 0.5 EACH PO ×2 (09:04→20:31)
[2023-05-16] MEDS: TAMSULOSIN 0.4 MG CAPSULE 0.8 MG PO (09:05)
[2023-05-16] MEDS: FINASTERIDE 5 MG TABLET PO (09:05)
[2023-05-16] MEDS: GABAPENTIN 100 MG CAPSULE PO ×3 (09:05→20:31)
[2023-05-16] MEDS: SODIUM CHLORIDE 0.9% 250 ML 21 ML IV (09:05)
[2023-05-16] MEDS: INSULIN GLARGINE 100 UNIT/ML 3ML PEN 30 UNIT SUBCUT ×2 (09:07→20:32)
[2023-05-16] MEDS: HEPARIN 5,000 UNIT/ML VIAL 5000 UNIT SUBCUT ×2 (09:07→20:31)
[2023-05-16] MEDS: TIMOLOL 0.5% OPHTH 1 DROPS EYE-BOTH (09:11)
[2023-05-16] MEDS: CARBIDOPA-LEVODOPA 25/100 TABLET 2.5 EACH PO ×3 (09:59→22:24)
[2023-05-16] MEDS: LATANOPROST 0.005% OPHTH 2.5 ML 1 DROPS EYE-BOTH (20:35)
[2023-05-17] VITALS (8 sets, daily range): BP systolic 107–161; BP diastolic 64–77; PULSE 62–74; RESP 18–20; TEMP 36.3–36.8; O2SAT 97–99
[2023-05-17] MEDS: MEROPENEM 1 GM in SODIUM CHLORIDE 0.9% 100 ML IV (00:54)
[2023-05-17 04:52] LABS: Add Manual Diff / Slide Review NO; Basophils Absolute Auto 100 /uL (0-100); Basophils Percent Auto 2.2 % (0-2); Eosinophils Absolute Auto 400 /uL (0-450); Eosinophils Percent Auto 6.8 % (2-4); Hemoglobin 11.5 g/dL (13.5-17.5); Lymphocytes Absolute Auto 2300 /uL (1100-4500); Lymphocytes Percent Auto 35.9 % (25-40); Mean Corpuscular Volume 84.9 fL (80-100); Monocytes Absolute Auto 500 /uL (0-900); Monocytes Percent Auto 8.2 % (3-14); Neutrophils Absolute Auto 3000 /uL (1500-7000); Neutrophils Percent Auto 46.9 % (50-75); Platelet Count 257 X10^3/uL (150-400); Red Blood Cell Count 4.12 X10^6/uL (4.5-5.9); Red Cell Distribution Width 16.6 % (11.6-14.8); White Blood Cell Count 6.4 X10^3/uL (4.5-11.0)
[2023-05-17 05:30] LABS: BUN Creatinine Ratio 23.8 (6-22); Blood Urea Nitrogen 20 mg/dL (9-20); Calcium 9.4 mg/dL (8.4-10.2); Carbon Dioxide 24 mmol/L (22-32); Chloride 110 mmol/L (98-107); Estimated Glomerular Filt Rate > 60 mL/min (>60); Glucose 52 mg/dL (80-110); HEMOLYSIS < 15 (0-50); Potassium 3.7 mmol/L (3.4-5.1); Sodium 139 mmol/L (137-145)
[2023-05-17] MEDS: CARBIDOPA-LEVODOPA 25/100 TABLET 3 EACH PO ×2 (05:44→13:56)
--- NOTE | 2023-05-17 06:20 | PC.NURSE ---
0545--glucose on BMP-52; pt asleep but easlily aroused; orange juice and linda crackers given and fingerstick after 30 minutes was 77 and pt denied any symptoms of hypoglycemia
--- NOTE | 2023-05-17 08:41 | CM.DANOTE ---
Patient is a 73 yo male who was [place] on 05/15/23 for Resp Distress. Pt has [facility] and [employer] for insurance and his PCP is Dr. Ravindra Goldsmith. EMR was reviewed. Per MD, pt with hx of urinary retention and UTIs with ESBL and DM and CHF and Parkinsons. Pt admitted for UTI with severe sepsis and being treated with IV-Abx for likely ESBL and will need at least 7 days of IV-Abx if not longer. 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 Pt no longer driving and states he has a FWW, wheelchair, and cane at home for ambulation but typically is able to ambulate with FWW independently and able to manage most ADLs alone or with min assist. Pt states his spouse is not working and able to provide some physical assist if needed. Pt confirms that almost a year ago he was admitted in May 2022 for similar and went to [facility] and also in Mar 2023 this year with UTI with sepsis and discharged to [facility] for IV-Abx and rehab and discharged home with HH. SW discussed possible discharge options of SNF at d/c for IV-Abx needs and PT/OT vs pt making improvements in strength for mobility for plan of home with HH and [facility] for IV-Abx as currently dose only once a day and pt has Dual insurance of Medicare and also [employer]. Pt is hopeful for home but to work with PT/OT today as he feels weaker than baseline. Pt confirms that if SNF needed they do NOT want [facility] and preference would be [facility] as he felt they provided good care. SW made initial referral to [facility] to review and also [facility] and requested to check for insurance coverage between Medicare and [employer] for home infusion. Plan: SW to follow closely for PT/OT today to determine SNF vs home with [facility] and HH pending pt progress and coverage for home infusion. RENATE Selby Discharge Planning/Care Management Advanced directive, confirm from FAMILY Start: 05/15/23 16:14 Freq: Q24H Status: Active Protocol: Document 05/15/23 16:14 CW (Rec: 05/15/23 17:30 CW [id number]) Advance Directive, confirm on record Time 17:30 Person contacted spouse Copy received No Document 05/16/23 16:14 CW (Rec: 05/16/23 16:59 CW [id number]) Advance Directive, confirm on record Time 17:30 Person contacted spouse Copy received No Copy received No CM Discharge Assessment Start: 05/17/23 08:37 Freq: Status: Active Protocol: Document 05/17/23 08:37 BF (Rec: 05/17/23 08:41 BF [id number]) Discharge Planning Assessment Assigned Quality Process Engineer RENATE Carrillo DPOA/Assigned Designee Name spouse Madhu Contact Information [phone] Advance Directives? No Advance Directives on File No History Provided By Patient,Significant Other, Medical Record Has Patient been admitted in last 30 No days? Prior Living Arrangements House Household Members spouse Type of transporation used prior to Relies on Others admit Independent with ADL's Yes: mostly Is patient alert and oriented? Yes Needs Assistance With Managing Medications,Home Chores / Shopping Caregiver for Another No DME Already Rented / Owned Wheelchair,FWW / Walker,Cane Patient/Family Preference Custodial Facility,Home with Home Health Comment SNF vs HH and home infusion pending progress Barriers to Discharge No Comment Weakness, not at PLOF Discharge Plan Custodial Facility Transportation Arrangement Likely cabulance if SNF Referrals Initiated Custodial,Other Additional Comment [facility] vs [facility] Medicare Choice List Provided Yes Medicare choice list reviewed on patient electronic tablet with SNF/HH Preference [facility] if SNF Has Agency SNF been contacted Yes Whiteboard Updated in Patient Room with Yes name and ext. # of Quality Process Engineer Review Status In Process Please Provide Date Initial DC 05/17/23 Assessment Was Performed Next Review Type Continued Stay Review
[2023-05-17] MEDS: ERTAPENEM 1 GM in SODIUM CHLORIDE 0.9% 100 ML IV (08:43)
[2023-05-17] MEDS: FUROSEMIDE 20 MG/2 ML VIAL IV (08:43)
[2023-05-17] MEDS: HEPARIN 5,000 UNIT/ML VIAL 5000 UNIT SUBCUT ×2 (08:43→21:39)
[2023-05-17] MEDS: GABAPENTIN 100 MG CAPSULE PO ×3 (08:44→21:38)
[2023-05-17] MEDS: FINASTERIDE 5 MG TABLET PO (08:44)
[2023-05-17] MEDS: ATORVASTATIN 20 MG TABLET 10 MG PO (08:44)
[2023-05-17] MEDS: ASPIRIN EC 81 MG TABLET PO (08:44)
[2023-05-17] MEDS: TAMSULOSIN 0.4 MG CAPSULE 0.8 MG PO (08:45)
[2023-05-17] MEDS: CARBIDOPA-LEVODOPA ER 50/200 TABLET 0.5 EACH PO ×2 (08:45→21:38)
[2023-05-17] MEDS: LOSARTAN 50 MG TABLET PO (08:45)
[2023-05-17] MEDS: INSULIN GLARGINE 100 UNIT/ML 3ML PEN 30 UNIT SUBCUT ×2 (08:54→21:40)
[2023-05-17] MEDS: TIMOLOL 0.5% OPHTH 1 DROPS EYE-BOTH (08:54)
[2023-05-17] MEDS: CARBIDOPA-LEVODOPA 25/100 TABLET 2.5 EACH PO ×3 (10:18→21:45)
--- NOTE | 2023-05-17 13:23 | OT.IP.EVAL ---
Current Diagnoses Sepsis, unspecified organism (05/15/23) Past Medical History (Last Reviewed 05/15/23 @ 15:11 by Andres Granado MD) Acne Anemia Ankle pain Benign prostatic hyperplasia Chicken pox Congestive heart failure GERD (gastroesophageal reflux disease) History of nephrolithiasis History of prostate cancer History of urinary retention Hyperlipidemia Hypertension Left nephrolithiasis Measles Parkinson's disease Prostate cancer (~2010) Recurrent UTI Shoulder pain Type 2 diabetes mellitus Urinary retention Surgical History (Last Reviewed 05/15/23 @ 15:11 by Andres Granado MD) Anesthesia History of knee surgery History of prostate biopsy Kidney stones Occupational Therapy Inpatient Evaluation/Re-Eval M1 PT/OT-IP Prior Functional Status Start: 05/17/23 13:58 Freq: NEEDED Status: Active Protocol: Document 05/17/23 13:59 [facility] (Rec: 05/17/23 14:34 [facility] [id number]) Medical Review Prior Functional Status Communication Independent Mobility and Gait Pt uses a 4ww at home to get around with. Activities of Daily Living and IADL's Pt has assist with socks, SBA for safety to shower, and assist to pay the bills. Social History Household Members spouse Living Arrangements House Number of Floors (Floors) One Floor Number of Stairs To Enter/Railing? 3 platform steps to enter the house. Home Environment Standard Height Toilet,Walk in Shower Home Equipment Front Wheel Walker,Four Wheel Walker,Straight Cane,Manual Wheelchair,Shower Seat with Backrest,Hand Held Shower, Drug Safety Data Management Specialist,Bed Rails Additional Social History Comment Pt has an adjustable bed. M2 OT-IP Current Condition Start: 05/17/23 13:58 Freq: Status: Active Protocol: Document 05/17/23 13:59 [facility] (Rec: 05/17/23 14:34 [facility] [id number]) Occupational Therapy Current Condition Current Condition Evaluation Date 05/17/23 Treatment Diagnosis Sepsis, UTI Diagnosis Onset Date 05/15/23 M3 OT- IP Subjective and Pain Start: 05/17/23 13:58 Freq: Status: Active Protocol: Document 05/17/23 13:59 [facility] (Rec: 05/17/23 14:34 [facility] [id number]) OT- Subjective Occupational Therapy Visit Type Type Initial Evaluation Visit Start Time 13:23 Visit Stop Time 14:00 Occupational Therapy Visit Comments Patient Comments Pt agreed to get up. Patient/Caregiver Goals Pt wanting to go home, but his is a little hesitant. OT Pain Assessment Pain When Pain Assessed At Rest Pain Present Pain Present Pain Reported M4 OT- IP ADL's Start: 05/17/23 13:58 Freq: Status: Active Protocol: Document 05/17/23 13:59 [facility] (Rec: 05/17/23 14:34 [facility] [id number]) OT [id number] Comments OT Self-Feeding Comments Not at meal time. OT ADL-Grooming Comments OT Grooming Comments Pt states did prior. OT ADL-Oral Care Comments Oral Care Comments Pt states did prior. OT ADL-Dressing General Eval Lower Body Dressing Ability Maximum Assistance Areas Needing Assistance Socks OT ADL-Toileting General Evaluation Toileting Ability Total Assistance Areas Needing Assistance Empty Catheter or Colostomy Comments OT Toileting Comments [place] in place. OT ADL-Bathing Comments OT Bathing Comments Not performed and will benefit from assist at this time. M5 OT- IP IADL's Start: 05/17/23 13:58 Freq: Status: Active Protocol: Document 05/17/23 13:59 [facility] (Rec: 05/17/23 14:34 [facility] [id number]) OT-Instrumental Activities of Daily Living Deficits IADL Deficits Identified Deficits Home Safety Awareness Awareness of Need for Assistance at Home Good Awareness Medication Management Medication Management Caregiver Administers Money Management Money Management Comments Pt states pays the bills. Meal Preparation Meal Preparation Caregiver Provides Assist Kiosk Sales Representative Kiosk Sales Representative Caregiver Provides Assist Driving Driving Caregiver Provides Assist M6 OT- IP Functional Cognition Start: 05/17/23 13:58 Freq: Status: Active Protocol: Document 05/17/23 13:59 [facility] (Rec: 05/17/23 14:34 [facility] [id number]) Cognitive Factors Limiting Selfcare Function Cognitive Ability Level of Alertness Alert Patient Orientation Name,Place,Situation Attention Span Ability Capable of Focused Attention, Capable of Sustained Attention Ability to Follow Commands Able to Follow One Step Commands Cognitive Comments Cognitive Assessment Comments Pt needing cues for safety to come to stand and push up on the bed to stand and from the recliner armrest. Pt's states pt usually pulls on her arms to come to stand. OT- Vision and Hearing OT- Hearing Assessment OT- Hearing Assessment WFL OT- Vision Assessment Visual Acuity Glasses All The Time Visual Attentiveness WFL Occular Pursuits WFL M7 OT- IP Mobility and Balance Start: 05/17/23 13:58 Freq: Status: Active Protocol: Document 05/17/23 13:59 [facility] (Rec: 05/17/23 14:34 [facility] [id number]) OT- Bed Mobility Assessment Rolling Level of Assistance Standby Assistance Supine to Sit Supine to Sit Assist Contact Guard Assistance, Bedrails OT-Transfer Assessment Sit to and From Stand Sit to and from Stand Contact Guard Assistance, Minimal Assistance Transfers Transfer Ability Minimal Assistance Technique Transfer Destination Bed,Chair Transfer Technique Stand Step Pivot Devices Transfer Assistive Devices Gait Belt,Front Wheeled Walker Comments Mobility Comments Pt CGA for balance when getting to the edge of the bed . Pt tends to lean into posterior tilt. CGA to KRISTEN to stand and MOD vc for safety to scoot forwards first and use his arms on the bed/ recliner to push up from versus grab the FWW to stand. Pt able to walk in the room with CGA, cues to get his weight over his feet as at times the weight in on his heels. OT- Balance Assessment Sitting Balance and Reactions Static Sitting Balance Ability Fair Dynamic Sitting Balance Ability Fair Standing Balance and Reactions Static Standing Balance Ability Fair Dynamic Standing Balance Ability Poor Comments Other Balance Tests/Deviations/Treatment Pt tends to lean into : posterior tilt and does not realize that he is scooting towards the end of the recliner and vc to scoot back. Pt has Parkinson's and tends to tremor. Able to have the pt 's assist pt to stand from the bed and walk to the recliner. M8 OT- IP Objective Assessments Start: 05/17/23 13:58 Freq: Status: Active Protocol: Document 05/17/23 13:59 [facility] (Rec: 05/17/23 14:34 [facility] [id number]) OT Gross Range of Motion Upper Extremity Range of Motion Assessment Left Impaired OT Strength Upper Extremity Strength Assessment Left Impaired Comments Strength Comments ZHENGE per pt has arthritis and not able to lift up to wash his hair. M9 OT- IP Assessment and Plan Start: 05/17/23 13:58 Freq: Status: Active Protocol: Document 05/17/23 13:59 [facility] (Rec: 05/17/23 14:34 [facility] [id number]) OT Summary Assessment and Plan Potential Rehabilitation Potential Good Analytic Complexity at Evaluation Moderate Summary OT Impairments Strength,Balance,Functional Mobility,Grooming,Dressing, Toileting,Bathing,Toilet Transfers,Shower Transfers, Activity Tolerance Progress Towards Goals Slow Progress due to Medical Issues,Slow Progress due to Activity Tolerance Assessment Summary Pt MOD complexity and main barriers are steps, unsteady balance, and will need assist with ADL and mobility needs if going home. Pt needing lots of verbal cues for safety and tends to use momentum to assist with his movements. It would be beneficial for pt to go to skilled rehab for short stay versus home with his if she is able to safety assist pt for his needs and have home health. Pt's seemingly wants what the pt would like which is home , but appears hesitant of feeling comfortable to have his home especially if having to do the antibiotics for the pt. Goals Self-Feeding Goal Independent Grooming Goal Independent Dressing Goal Minimal Assistance Toileting Goal Independent Bathing Goal Standby Assistance Toilet Transfer Goal Independent Shower Transfer Goal Standby Assistance Days to Meet Goals 10 Frequency of Treatment Frequency Of Treatment Once a Day Treatment Plan OT Treatment Plan ADL Training,Functional Mobility,Patient/Family Education,Discharge Planning Discharge Recommendations OT Discharge Recommendations Home with 30/08 Assist Available,Home Health,SNF Rehab,Home vs SNF Transportation Needs at Discharge Private Vehicle,Wheelchair/ Cabulance
--- NOTE | 2023-05-17 15:30 | PT.IIE ---
Current Diagnoses Sepsis, unspecified organism (05/15/23) Surgical History (Last Reviewed 05/15/23 @ 15:11 by Andres Granado MD) Anesthesia History of knee surgery History of prostate biopsy Kidney stones Medical History (Last Reviewed 05/15/23 @ 15:11 by Andres Granado MD) Acne Anemia Ankle pain Benign prostatic hyperplasia Chicken pox Congestive heart failure GERD (gastroesophageal reflux disease) History of nephrolithiasis History of prostate cancer History of urinary retention Hyperlipidemia Hypertension Left nephrolithiasis Measles Parkinson's disease Prostate cancer (~2010) Recurrent UTI Shoulder pain Type 2 diabetes mellitus Urinary retention Physical Therapy Inpatient Evaluation/Re-Eval M1 PT/OT-IP Prior Functional Status Start: 05/17/23 17:52 Freq: NEEDED Status: Active Protocol: Document 05/17/23 15:30 [facility] (Rec: 05/17/23 18:07 [facility] [id number]) Medical Review Prior Functional Status Medical History Reviewed Yes Communication able to make needs known; needs time to respond to questions and instructions Mobility and Gait pt stated that he is modified independent with all mobilities and ambulation using a 4WW Activities of Daily Living and IADL's Per OT note: Pt has assist with socks, SBA for safety to shower, and assist to pay the bills. Social History Household Members spouse,family Living Arrangements House Number of Floors (Floors) One Floor Number of Stairs To Enter/Railing? 3 platfrom steps to enter the house. Home Environment Standard Height Toilet,Walk in Shower Home Equipment Front Wheel Walker,Four Wheel Walker,Straight Cane,Manual Wheelchair,Shower Seat with Backrest,Hand Held Shower, Solution Maker,Bed Rails,Grab Bars Near Toilet,Grab Bars In Shower Additional Social History Comment Pt has an adjustable bed. pt stated that he has his daughter, KATINA and grandson at home to assist him M2 PT-IP Current Condition Start: 05/17/23 17:52 Freq: NEEDED Status: Active Protocol: Document 05/17/23 15:30 [facility] (Rec: 05/17/23 18:07 [facility] [id number]) Physical Therapy Current Condition Current Condition Evaluation Date 05/17/23 Treatment Diagnosis UTI; sepsis; difficulty in walking Onset Date 05/15/23 M3 PT-IP Subjective Start: 05/17/23 17:52 Freq: NEEDED Status: Active Protocol: Document 05/17/23 15:30 [facility] (Rec: 05/17/23 18:07 AB [id number]) Subjective Physical Therapy Visit Type Type Initial Evaluation Visit Start Time 15:30 Visit Stop Time 16:00 Number of TECHNICAL DEVELOPER Visits 0 Physical Therapy Visit Comments Patient Comments pt is agreeable to do PT Therapy Pain Assessment Pain Present Pain Present Denied Pain M4 PT-IP Mobility and Gait Start: 05/17/23 17:52 Freq: NEEDED Status: Active Protocol: Document 05/17/23 15:30 [facility] (Rec: 05/17/23 18:07 [facility] [id number]) PT-Bed Mobility Assessment Rolling Level of Assist Standby Assistance Supine to Sit Supine to Sit Standby Assistance PT-Transfer Assessment Sit to and From Stand Sit to and from Stand Contact Guard Assistance, Minimal Assistance,1 Person Assistance,Use of Upper Extremities Equipment Transfer Assistive Device Gait Belt,Front Wheeled Walker Orthotic/Prosthetic Devices or Brace: No Transfers Transfer Destination Bed,Chair Transfer Technique ambulated Transfer Ability Level of Assist Contact Guard Assistance,1 Person Assistance,Use of Upper Extremities Comments Mobility Comments pt sitting on the chair and agreeable to do PT. spouse in room. obtained PLOF and home set up from pt. pt's spouse talking in her phone and unable to confirm and participate during PT session. BP sittin/70. pt presents with (+) tremors and involuntary movements. pt completed sit to stand from chair CGA and ambulated to the EOB using FWW SBA to CGA. completed sit<>supine SBA. CGA to min A with initial sitting on EOB due to increase retrolean of trunk. pt required increase time to complete task. pt ambulated back to the chair using fWW SBA. BP checked: 117/56. pt agreed to ambulate using 4WW. pt completed sit to stand from chair CGA to min A and max cues for technniques. pt can be impulsive and pushes trunk backwards with sit to stand. pt ambualted using 4WW CGA and cues. presents with increase unsteadiness with ambulation with 4WW use. pt sat back on the chair. positioned pt on the chair. chair alarm on. call light and table placed within reach. informed pt regarding currently mobility and safety and recommendation of use of FWW at this time and pt understood. Gait Assessment Gait Gait Assistance Required: Standby Assistance,Contact Guard Assist Distance (Feet) 40 Able to Maintain Weight Bearing Status Yes During Gait Assistive Devices Assistive Device Gait Belt,Front Wheeled Walker ,4 Wheeled Walker Orthotic/Prosthetic Devices or Brace: No Gait Deviations General Gait Pattern Ataxic,Decreased Stride Length ,Decreased Feet Clearance Factors Limiting Gait Function Factors Limiting Gait Function Decreased Activity Tolerance, Decreased Strength,Difficulty Following Directions, Incoordination,Limited Range of Motion,Poor Balance,Poor Safety Awareness PT-Balance Assessment Sitting Balance and Reactions Static Sitting Balance Ability Good Dynamic Sitting Balance Ability Fair Standing Balance and Reactions Static Standing Balance Ability Fair Dynamic Standing Balance Ability Fair Device Used FWW M5 PT-IP Objective Assessments Start: 05/17/23 17:52 Freq: NEEDED Status: Active Protocol: Document 05/17/23 15:30 [facility] (Rec: 05/17/23 18:07 AB [id number]) Orientation Orientation/Cognition Level of Alertness Alert Orientation Name,Situation Safety Awareness Decreased Safety Awareness Memory Description Short Term Impaired Gross Range of Motion Lower Extremity ROM Assessment Within Functional Limits Strength Lower Extremity Strength Hip 3+/5 Knee 4-/5 Muscle Tone Muscle Tone WNL Yes M6 PT-IP Treatment Start: 05/17/23 17:52 Freq: NEEDED Status: Active Protocol: Document 05/17/23 15:30 [facility] (Rec: 05/17/23 18:07 AB [id number]) Physical Therapy Treatment Education Education Provided Safety M7 PT-IP Assessment and Plan Start: 05/17/23 17:52 Freq: NEEDED Status: Active Protocol: Document 05/17/23 15:30 [facility] (Rec: 05/17/23 18:07 AB [id number]) PT Summary Assessment and Plan Potential Rehabilitation Potential Fair Status of Condition at Evaluation Evolving Summary Impairments Pain,ROM,Strength,Balance, Coordination,Sensation,Tone, Cognition,Bed Mobility, Transfers,Gait,Activity Tolerance Assessment Summary pt is a 73 y/o M who presented to the ED due to respiratory distress. pt admitted for UTI; sepsis. pt requiring CGA to min A with moibility using FWW /4WW. recommending use of FWW at this time. pt also has dx of PD affecting current mobility level and assistance level. pt will require 24/7 assistance at home for safety due to pt's impulsiveness and decrease safety awareness. d/ c plan depending if family will be able to provide appropriate assistance to pt. will continue to assess. d/c plan: home with 24/7 and HHPT vs SNF Goals Bed Mobility Goal Independent Transfer Goal Independent,Front Wheeled Walker Gait Goal Independent,Front Wheel Walker Gait Distance 150 Other Goals improve transfers and ambultion using 4WW ~ 200 ft mod I up/down 3 platform steps using FWW/4WW SBA Days to Meet Goals 10 Frequency of Treatment Frequency Of Treatment Once a Day Treatment Plan Physical Therapy Treatment Plan Bed Mobility Training,Transfer Training,Gait Training, Therapeutic Exercise,Balance Retraining,Discharge Planning, Hot or Cold Pack,Neuromuscular Re-ed,Coordination Retraining ,Manual Therapy Precautions Other Precautions falls Recommendations To Nursing Amount of Assist Needed 1 Person Assist Discharge Recommendations PT Discharge Recommendations Home with 247 Assist Available,Home Health,SNF Rehab,Home vs SNF Transportation Needs at Discharge Private Vehicle
--- NOTE | 2023-05-17 15:50 | CM.DPC ---
DCP SNF vs Home Infusion Cont Per MD, pt switched to Ertapenem 1g Q24 for 10-[address] Almeida confirms she will follow. PICC vs midline to likely be placed today. KVNG spoke to Lucho at [facility] and updated and faxed updated med list to review and they will run to determine any out of pocket cost. Spouse has some concerns with managing IV-Abx at home. SW faxed updated notes to [facility] to review and currently on OT note available and PT note not yet in EMR. OT feels pt would benefit from SNF and spouse anxious about managing pt at home and pt willing to go to SNF if recommended. PASRR completed in anticipation of SNF under pt's Medicare (but does have [place] secondary but would go to SNF under Medicare primary). Plan: SW to follow closely in the AM to determine if any out of pocket cost for home infusion and if [facility] can accept at discharge. RENATE Selby
--- NOTE | 2023-05-17 18:04 | P.PN_ITS ---
Subjective Subjective Interval history: Patient feeling well today, no complaints. Urine culture resulted as ESBL. Abx changed to ertapenem and midline ordered. Exam Vital Signs (past 8 hours): - 05/17/23 12:00 05/17/23 17:00 Temperature 98.2 F 97.3 F L Pulse Rate 68 69 Respiratory Rate 18 18 Blood Pressure 109/64 117/65 Pulse Oximetry 99 99 Oxygen Flow Rate 0 0 Fraction of Inspired Oxygen 28 SaO2/FiO2 Ratio 346 Oxygen Delivery Method Room Air Oxygen Flow Rate 0 Narrative Exam Narrative: NAD, alert and oriented, fluent speech, calm. Chronically ill in appearance. Having some chorea-like movements. Normocephalic skull, EOMI, anicteric sclera, symmetric pupils. Oropharynx unremarkable, no droop. Neck supple, midline trachea, no adenopathy. Lungs clear with some scattered wheezing, normal rate and effort. Heart regular, no murmur gallop or rub. Abdomen is soft, non distended and non tender. Extremities are free of edema. Skin is free of rash or lesions. Joints are not swollen or deformed. Judgment appears to be normal. Objective Labs 05/17/23 04:19 05/17/23 04:19 Labs: Laboratory Results - last 24 hr 05/17/23 04:19 WBC 6.4 RBC 4.12 L Hgb 11.5 L Hct 35.0 L MCV 84.9 MCH 28.0 MCHC 33.0 RDW 16.6 H Plt Count 257 Neut % (Auto) 46.9 L D Lymph % (Auto) 35.9 [place] % (Auto) 8.2 Eos % (Auto) 6.8 H Baso % (Auto) 2.2 H Neut # (Auto) 3000 Lymph # (Auto) 2300 [place] # (Auto) 500 Eos # (Auto) 400 Baso # (Auto) 100 Sodium 139 Potassium 3.7 Chloride 110 H Carbon Dioxide 24 BUN 20 Creatinine 0.84 Estimated GFR > 60 BUN/Creatinine Ratio 23.8 H Glucose 52 L Calcium 9.4 PFSH Medical History History of urinary retention Hyperlipidemia History of nephrolithiasis Left nephrolithiasis Urinary retention Recurrent UTI History of prostate cancer Acne Shoulder pain Ankle pain Measles Chicken pox Prostate cancer (~2010) Anemia Benign prostatic hyperplasia GERD (gastroesophageal reflux disease) Hypertension Type 2 diabetes mellitus Parkinson's disease Congestive heart failure Surgical History History of prostate biopsy Anesthesia History of knee surgery Kidney stones Family History Father Stroke Hypertension Bacterial UTI Mother Cancer Sister Hypertension Aunt Diabetes mellitus Uncle Kidney stones Social History marital status: number of children: 3 household members: spouse Smoking Status: Former smoker alcohol intake: never Type(s) of exercise: walking frequency: 1-2 times per week Assessment & Plan Assessment & Plan narrative: 1. Sepsis with lactic acidosis, leukocytosis, and tachypnea with a suspected infective source of pyelonephritis (recent ESBL), present on admission and sepsis resolved. 2. Volume responsive hypotension, present on admission and resolved. 3. Acute hypoxic respiratory failure, present on admission and resolved. 4. Severe lactic acidosis, present on admission and active. 5. Acute on chronic diastolic heart failure, present on admission and active. 6. UTI with history of ESBL (UA pos for Nitrite, protein, LE, WBC's, and many bacteria), present on admission and active. 7. Hypertension, not active at the time of admission. 8. Parkinson's disease, present on admission and active. 9. Urine retention, present on admission and active. Chronic mixon present. 10. Hyperlipidemia, present on admission stable. 11. Insulin-dependent diabetes mellitus 2, present on admission and active. PLAN: -ertapenem 1g daily for ESBL in urine, plan for 10-14 days of treatment -continue home losartan -continue IV lasix 20mg daily -midline ordered -patient will f/up with ID at [facility] to discuss recurrent ESBL and monitor IV abx He is full resuscitation and would be intubated if needed. This is all confirmed at the time of admission. His is present, proxy. Dispo: Home potentially on 05/17 with IV home infusions to start on 05/18. Time Spent With Patient Time with patient: 30 to 49 minutes with 50% spent counseling/coordinating care Quality VTE Deep Vein Thrombosis/Pulmonary Embolism Present on Admission: No
[2023-05-17] MEDS: LATANOPROST 0.005% OPHTH 2.5 ML 1 DROPS EYE-BOTH (21:39)
[2023-05-18] VITALS (7 sets, daily range): BP systolic 112–141; BP diastolic 62–74; PULSE 64–76; RESP 16–20; TEMP 36.3–36.6; O2SAT 97–99
[2023-05-18 05:08] LABS: Add Manual Diff / Slide Review NO; Basophils Absolute Auto 0 /uL (0-100); Basophils Percent Auto 0.3 % (0-2); Eosinophils Absolute Auto 300 /uL (0-450); Hematocrit 34.8 % (41-53); Hemoglobin 11.4 g/dL (13.5-17.5); Lymphocytes Absolute Auto 2400 /uL (1100-4500); Lymphocytes Percent Auto 38.1 % (25-40); Mean Corpuscular HGB Conc 32.8 % (30-36); Mean Corpuscular Hemoglobin 27.8 PG (26-34); Mean Corpuscular Volume 84.6 fL (80-100); Monocytes Absolute Auto 400 /uL (0-900); Monocytes Percent Auto 6.8 % (3-14); Neutrophils Absolute Auto 3100 /uL (1500-7000); Neutrophils Percent Auto 49.8 % (50-75); Platelet Count 268 X10^3/uL (150-400); Red Blood Cell Count 4.11 X10^6/uL (4.5-5.9); Red Cell Distribution Width 16.5 % (11.6-14.8); White Blood Cell Count 6.2 X10^3/uL (4.5-11.0)
[2023-05-18 05:25] LABS: BUN Creatinine Ratio 21.8 (6-22); Blood Urea Nitrogen 19 mg/dL (9-20); Calcium 9.4 mg/dL (8.4-10.2); Carbon Dioxide 24 mmol/L (22-32); Chloride 109 mmol/L (98-107); Estimated Glomerular Filt Rate > 60 mL/min (>60); Glucose 92 mg/dL (80-110); HEMOLYSIS < 15 (0-50); Potassium 3.7 mmol/L (3.4-5.1); Sodium 137 mmol/L (137-145)
[2023-05-18] MEDS: PANTOPRAZOLE DR 20 MG TABLET PO (05:56)
[2023-05-18] MEDS: CARBIDOPA-LEVODOPA 25/100 TABLET 3 EACH PO ×2 (05:56→14:10)
[2023-05-18] MEDS: ERTAPENEM 1 GM in SODIUM CHLORIDE 0.9% 100 ML IV (08:29)
[2023-05-18] MEDS: TIMOLOL 0.5% OPHTH 1 DROPS EYE-BOTH (09:18)
[2023-05-18] MEDS: INSULIN GLARGINE 100 UNIT/ML 3ML PEN 30 UNIT SUBCUT ×2 (09:18→21:32)
[2023-05-18] MEDS: ATORVASTATIN 20 MG TABLET 10 MG PO (09:19)
[2023-05-18] MEDS: FINASTERIDE 5 MG TABLET PO (09:20)
[2023-05-18] MEDS: GABAPENTIN 100 MG CAPSULE PO ×3 (09:20→21:32)
[2023-05-18] MEDS: CARBIDOPA-LEVODOPA ER 50/200 TABLET 0.5 EACH PO ×2 (09:20→21:32)
[2023-05-18] MEDS: TAMSULOSIN 0.4 MG CAPSULE 0.8 MG PO (09:20)
[2023-05-18] MEDS: FUROSEMIDE 20 MG/2 ML VIAL IV (09:20)
[2023-05-18] MEDS: LOSARTAN 50 MG TABLET PO (09:20)
[2023-05-18] MEDS: ASPIRIN EC 81 MG TABLET PO (09:20)
[2023-05-18] MEDS: HEPARIN 5,000 UNIT/ML VIAL 5000 UNIT SUBCUT ×2 (09:20→21:32)
[2023-05-18] MEDS: CARBIDOPA-LEVODOPA 25/100 TABLET 2.5 EACH PO ×3 (10:34→21:32)
--- NOTE | 2023-05-18 12:20 | OT.IP.TRT ---
Current Diagnoses Sepsis, unspecified organism (05/15/23) Occupational Therapy Treatment Note M2 OT-IP Current Condition Start: 05/17/23 13:58 Freq: Status: Active Protocol: Document 05/17/23 13:59 [facility] (Rec: 05/17/23 14:34 [facility] [id number]) Occupational Therapy Current Condition Current Condition Evaluation Date 05/17/23 Treatment Diagnosis Sepsis, UTI Diagnosis Onset Date 05/15/23 M3 OT- IP Subjective and Pain Start: 05/17/23 13:58 Freq: Status: Active Protocol: Document 05/18/23 12:21 [facility] (Rec: 05/18/23 12:39 [facility] [id number]) OT- Subjective Occupational Therapy Visit Type Type Treatment Note Visit Start Time 11:48 Visit Stop Time 12:20 Occupational Therapy Visit Comments Patient Comments Pt wanting to get up and use the bathroom. Pt's present in the room for caregiver training. Patient/Caregiver Goals Pt agreeable to get up to use the bathroom. OT Pain Assessment Pain When Pain Assessed At Rest Pain Present Pain Present Denied Pain M4 OT- IP ADL's Start: 05/17/23 13:58 Freq: Status: Active Protocol: Document 05/18/23 12:21 [facility] (Rec: 05/18/23 12:39 [facility] [id number]) OT [id number] Comments OT Self-Feeding Comments Not at meal time. OT ADL-Grooming Comments OT Grooming Comments Pt able to wash his hands at this time. OT ADL-Oral Care Comments Oral Care Comments Pt states did prior. OT ADL-Dressing General Eval Lower Body Dressing Ability Moderate Assistance Areas Needing Assistance Underpants/Brief Comments OT Dressing Comments Assist to efren the brief over his feet and up over his hips in the back. OT ADL-Toileting General Evaluation Toileting Ability Minimal Assistance Areas Needing Assistance Manage Clothing OT ADL-Bathing Comments OT Bathing Comments Pt showered earlier with nursing aid. M5 OT- IP IADL's Start: 05/17/23 13:58 Freq: Status: Active Protocol: Document 05/17/23 13:59 [facility] (Rec: 05/17/23 14:34 [facility] [id number]) OT-Instrumental Activities of Daily Living Deficits IADL Deficits Identified Deficits Home Safety Awareness Awareness of Need for Assistance at Home Good Awareness Medication Management Medication Management Caregiver Administers Money Management Money Management Comments Pt states pays the bills. Meal Preparation Meal Preparation Caregiver Provides Assist Play Reader Play Reader Caregiver Provides Assist Driving Driving Caregiver Provides Assist M6 OT- IP Functional Cognition Start: 05/17/23 13:58 Freq: Status: Active Protocol: Document 05/18/23 12:21 [facility] (Rec: 05/18/23 12:39 [facility] [id number]) Cognitive Factors Limiting Selfcare Function Cognitive Ability Level of Alertness Alert Patient Orientation Name,Place,Situation Attention Span Ability Capable of Focused Attention, Capable of Sustained Attention Ability to Follow Commands Able to Follow One Step Commands Memory Description Short Term Impaired Safety Awareness Underestimates Need for Assistance Cognitive Comments Cognitive Assessment Comments Pt continues to need safety cues hand placement when coming to sit and stand. VC to keep the FWW in front of his at all times. M7 OT- IP Mobility and Balance Start: 05/17/23 13:58 Freq: Status: Active Protocol: Document 05/18/23 12:21 [facility] (Rec: 05/18/23 12:39 [facility] [id number]) OT-Transfer Assessment Sit to and From Stand Sit to and from Stand Contact Guard Assistance Transfers Transfer Ability Contact Guard Assistance, Minimal Assistance Technique Transfer Destination Chair,Toilet Transfer Technique Stand Pivot Devices Transfer Assistive Devices Gait Belt,Front Wheeled Walker Comments Mobility Comments CGA to stand and vc for safety awareness of hand placement and FWW use. CGA to KRISTEN for balance as pt still a little unsteady on his feet at times especially during turns. Pt assisting pt and having to cue him of safety needs. Pt 's feeling it would be best for pt to go to skilled rehab to continue to work on getting stronger prior to coming home. OT- Balance Assessment Sitting Balance and Reactions Static Sitting Balance Ability Good Dynamic Sitting Balance Ability Good Standing Balance and Reactions Static Standing Balance Ability Fair Dynamic Standing Balance Ability Fair Comments Other Balance Tests/Deviations/Treatment Pt doing better with his : posture, however still realizes on momentum for movements at times. Pt will greatly benefit from balance work while at skilled rehab. M8 OT- IP Objective Assessments Start: 05/17/23 13:58 Freq: Status: Active Protocol: Document 05/17/23 13:59 [facility] (Rec: 05/17/23 14:34 [facility] [id number]) OT Gross Range of Motion Upper Extremity Range of Motion Assessment Left Impaired OT Strength Upper Extremity Strength Assessment Left Impaired Comments Strength Comments LUE per pt lots of arthritis and not able to lift up to wash his hair. M9 OT- IP Assessment and Plan Start: 05/17/23 13:58 Freq: Status: Active Protocol: Document 05/18/23 12:21 [facility] (Rec: 05/18/23 12:39 [facility] [id number]) OT Summary Assessment and Plan Potential Rehabilitation Potential Good Analytic Complexity at Evaluation Moderate Summary OT Impairments Strength,Balance,Functional Mobility,Grooming,Dressing, Toileting,Bathing,Toilet Transfers,Shower Transfers, Activity Tolerance Progress Towards Goals Progressing Toward Goals Assessment Summary Pt and have decided at this time best for pt to go to skilled rehab. Pt will benefit from skilled rehab to work on safety awareness, balance, and core strengthening. Pt to go to skilled rehab when medically stable. Goals Self-Feeding Goal Independent Grooming Goal Independent Dressing Goal Independent Toileting Goal Independent Bathing Goal Standby Assistance Toilet Transfer Goal Independent Shower Transfer Goal Standby Assistance Days to Meet Goals 15 Frequency of Treatment Frequency Of Treatment Once a Day Treatment Plan OT Treatment Plan ADL Training,Functional Mobility,Patient/Family Education,Discharge Planning Discharge Recommendations OT Discharge Recommendations SNF Rehab Transportation Needs at Discharge Private Vehicle
--- NOTE | 2023-05-18 14:07 | PM.PN.1 ---
Subjective Subjective Interval history: Has no complaints. Asked for his home entacapone to be restarted. SNF can accept tomorrow. Exam Vital Signs (past 8 hours): - 05/18/23 08:00 05/18/23 08:30 05/18/23 09:20 Temperature 97.6 F Pulse Rate 68 68 Respiratory Rate 20 Blood Pressure 129/74 129/74 Pulse Oximetry 98 Oxygen Delivery Method Room Air Oxygen Flow Rate 0 05/18/23 12:00 Temperature 97.4 F L Pulse Rate 71 Respiratory Rate 18 Blood Pressure 122/66 Pulse Oximetry 97 Oxygen Delivery Method Oxygen Flow Rate 0 Fraction of Inspired Oxygen 28 SaO2/FiO2 Ratio 346 Oxygen Delivery Method Room Air Oxygen Flow Rate 0 Narrative Exam Narrative: NAD, alert and oriented, fluent speech, calm. Chronically ill in appearance. Having some mild chorea-like movements. Normocephalic skull, EOMI, anicteric sclera, symmetric pupils. Oropharynx unremarkable, no droop. Neck supple, midline trachea, no adenopathy. Lungs clear with some scattered wheezing, normal rate and effort. Heart regular, no murmur gallop or rub. Abdomen is soft, non distended and non tender. Extremities are free of edema. Skin is free of rash or lesions. Joints are not swollen or deformed. Judgment appears to be normal. Objective Labs 05/18/23 03:54 05/18/23 03:54 Labs: Laboratory Results - last 24 hr 05/18/23 03:54 WBC 6.2 RBC 4.11 L Hgb 11.4 L Hct 34.8 L MCV 84.6 MCH 27.8 MCHC 32.8 RDW 16.5 H Plt Count 268 Neut % (Auto) 49.8 L Lymph % (Auto) 38.1 Warrick % (Auto) 6.8 Eos % (Auto) 5.0 H Baso % (Auto) 0.3 Neut # (Auto) 3100 Lymph # (Auto) 2400 Warrick # (Auto) 400 Eos # (Auto) 300 Baso # (Auto) 0 Sodium 137 Potassium 3.7 Chloride 109 H Carbon Dioxide 24 BUN 19 Creatinine 0.87 Estimated GFR > 60 BUN/Creatinine Ratio 21.8 Glucose 92 Calcium 9.4 PFSH Medical History History of urinary retention Hyperlipidemia History of nephrolithiasis Left nephrolithiasis Urinary retention Recurrent UTI History of prostate cancer Acne Shoulder pain Ankle pain Measles Chicken pox Prostate cancer (~2010) Anemia Benign prostatic hyperplasia GERD (gastroesophageal reflux disease) Hypertension Type 2 diabetes mellitus Parkinson's disease Congestive heart failure Surgical History History of prostate biopsy Anesthesia History of knee surgery Kidney stones Family History Father Stroke Hypertension Bacterial UTI Mother Cancer Sister Hypertension Aunt Diabetes mellitus Uncle Kidney stones Social History marital status: number of children: 3 household members: spouse and family Smoking Status: Former smoker alcohol intake: never Type(s) of exercise: walking frequency: 1-2 times per week Assessment & Plan Assessment & Plan narrative: 1. Sepsis with lactic acidosis, leukocytosis, and tachypnea with a suspected infective source of pyelonephritis (recent ESBL), present on admission and sepsis resolved. 2. Volume responsive hypotension, present on admission and resolved. 3. Acute hypoxic respiratory failure, present on admission and resolved. 4. Severe lactic acidosis, present on admission and active. 5. Acute on chronic diastolic heart failure, present on admission and active. 6. UTI with history of ESBL (UA pos for Nitrite, protein, LE, WBC's, and many bacteria), present on admission and active. 7. Hypertension, not active at the time of admission. 8. Parkinson's disease, present on admission and active. 9. Urine retention, present on admission and active. Chronic mixon present. 10. Hyperlipidemia, present on admission stable. 11. Insulin-dependent diabetes mellitus 2, present on admission and active. PLAN: -ertapenem 1g daily for ESBL in urine, plan for 10-14 days of treatment -continue home losartan -restart home entacapone -continue IV lasix 20mg daily -midline placed -patient will f/up with ID at [facility] to discuss recurrent ESBL and monitor IV abx, has appt on 05/24 at 9am He is full resuscitation and would be intubated if needed. This is all confirmed at the time of admission. His is present, proxy. Dispo: SNF on 05/18 on 10 days of IV abx to finish on 05/24. Time Spent With Patient Time with patient: 30 to 49 minutes with 50% spent counseling/coordinating care Quality VTE Deep Vein Thrombosis/Pulmonary Embolism Present on Admission: No
[2023-05-18] MEDS: ENTACAPONE 200 MG TABLET 100 MG PO ×3 (14:10→21:32)
--- NOTE | 2023-05-18 15:05 | PT.IPTN ---
Current Diagnoses Sepsis, unspecified organism (05/15/23) Physical Therapy Treatment Note M2 PT-IP Current Condition Start: 05/17/23 17:52 Freq: NEEDED Status: Active Protocol: Document 05/17/23 15:30 AB (Rec: 05/17/23 18:07 AB [id number]) Physical Therapy Current Condition Current Condition Evaluation Date 05/17/23 Treatment Diagnosis UTI; sepsis; difficulty in walking Onset Date 05/15/23 M3 PT-IP Subjective Start: 05/17/23 17:52 Freq: NEEDED Status: Active Protocol: Document 05/18/23 15:30 TS (Rec: 05/18/23 15:38 TS [id number]) Subjective Physical Therapy Visit Type Type Treatment Note Visit Start Time 15:05 Visit Stop Time 15:30 Number of [employer]OTE [employer]AL [employer]PERATOR Visits 1 Physical Therapy Visit Comments Patient Comments Pt found up with nursing, pt is agreeable to PT. M4 PT-IP Mobility and Gait Start: 05/17/23 17:52 Freq: NEEDED Status: Active Protocol: Document 05/18/23 15:30 TS (Rec: 05/18/23 15:38 TS [id number]) PT-Transfer Assessment Sit to and From Stand Sit to and from Stand Minimal Assistance,1 Person Assistance Equipment Transfer Assistive Device Gait Belt,Front Wheeled Walker Orthotic/Prosthetic Devices or Brace: No Comments Mobility Comments STS from chair x2 Gifty for retroleaning, pt braces back of 's against bed to assist in standing. He ambulated in hallway ~150'SBA with FWW, pt cued for larger steps. Back in room pt performed standing marches with cues and sitting knee flex/ext. Pt was left in bed, all needs met. Gait Assessment Gait Gait Assistance Required: Standby Assistance Distance (Feet) 150 Able to Maintain Weight Bearing Status Yes During Gait Assistive Devices Assistive Device Gait Belt,Front Wheeled Walker Orthotic/Prosthetic Devices or Brace: No Gait Deviations General Gait Pattern Ataxic,Decreased Stride Length ,Decreased Feet Clearance Factors Limiting Gait Function Factors Limiting Gait Function Decreased Activity Tolerance, Decreased Strength,Difficulty Following Directions, Incoordination,Limited Range of Motion,Poor Balance,Poor Safety Awareness PT-Balance Assessment Sitting Balance and Reactions Static Sitting Balance Ability Good Dynamic Sitting Balance Ability Good Standing Balance and Reactions Static Standing Balance Ability Fair Dynamic Standing Balance Ability Fair Device Used FWW M5 PT-IP Objective Assessments Start: 05/17/23 17:52 Freq: NEEDED Status: Active Protocol: Document 05/17/23 15:30 AB (Rec: 05/17/23 18:07 AB [id number]) Orientation Orientation/Cognition Level of Alertness Alert Orientation Name,Situation Safety Awareness Decreased Safety Awareness Memory Description Short Term Impaired Gross Range of Motion Lower Extremity ROM Assessment Within Functional Limits Strength Lower Extremity Strength Hip 3+/5 Knee 4-/5 Muscle Tone Muscle Tone WNL Yes M6 PT-IP Treatment Start: 05/17/23 17:52 Freq: NEEDED Status: Active Protocol: Document 05/18/23 15:30 TS (Rec: 05/18/23 15:38 TS [id number]) Physical Therapy Treatment Education Education Provided Safety Other Treatments Other Treatment Performed Education on the benefits of a BIG program for his Parkinson 's symptoms. M7 PT-IP Assessment and Plan Start: 05/17/23 17:52 Freq: NEEDED Status: Active Protocol: Document 05/18/23 15:30 TS (Rec: 05/18/23 15:38 TS [id number]) PT Summary Assessment and Plan Potential Rehabilitation Potential Fair Summary Impairments Pain,ROM,Strength,Balance, Coordination,Sensation,Tone, Cognition,Bed Mobility, Transfers,Gait,Activity Tolerance Progress Towards Goals Progressing Toward Goals Assessment Summary Sarbjit is making progress with his mobility this session. He progressed his gait to ~150' SBA with FWW. Pt has decreased step length and height and required cues for larger steps . He is Gifty for STS x2 with FWW. He has a heavy retrolean coming into standing and braces bakc of LE's against chair to assist balance. Educated pt on the benefits of the BIG program for his Parkinson's symptoms. PT is recommending Home vs SNF. Goals Bed Mobility Goal Independent Transfer Goal Independent,Front Wheeled Walker Gait Goal Independent,Front Wheel Walker Gait Distance 150 Other Goals improve transfers and ambultion using 4WW ~ 200 ft mod I up/down 3 platform steps using FWW/4WW SBA Days to Meet Goals 10 Frequency of Treatment Frequency Of Treatment Once a Day Treatment Plan Physical Therapy Treatment Plan Bed Mobility Training,Transfer Training,Gait Training, Therapeutic Exercise,Balance Retraining,Discharge Planning, Hot or Cold Pack,Neuromuscular Re-ed,Coordination Retraining ,Manual Therapy Other Recommendations and Next Treatment Stair training Focus Precautions Other Precautions falls Recommendations To Nursing Amount of Assist Needed 1 Person Assist Discharge Recommendations PT Discharge Recommendations Home with 30/08 Assist Available,Home Health,SNF Rehab,Home vs SNF Transportation Needs at Discharge Private Vehicle
--- NOTE | 2023-05-18 15:33 | CM.DPNOTE ---
DCP Cont Patient and spouse requesting discharge to [facility]. Referral discussed with Iveth at [facility] who accepts for admission tomorrow, transport arranged tentatively for 1130. Melissa at [facility] can also accept tomorrow; notified Melissa that patient preference is [facility]. Plan: Discharge to [facility] anticipated 05.19.23; patient has a midline and will require approx one addtl week of IV ertapenem Q24, [facility] aware CM team following closely for coordination. JW
[2023-05-18] MEDS: LATANOPROST 0.005% OPHTH 2.5 ML 1 DROPS EYE-BOTH (21:32)
[2023-05-19 03:38] VITALS: BP 118/63; PULSE 60; RESP 16; TEMP 36.6; O2SAT 99
[2023-05-19] MEDS: ENTACAPONE 200 MG TABLET 100 MG PO ×2 (06:15→10:53)
[2023-05-19] MEDS: CARBIDOPA-LEVODOPA 25/100 TABLET 3 EACH PO (06:16)
[2023-05-19] MEDS: PANTOPRAZOLE DR 20 MG TABLET PO (06:16)
[2023-05-19 08:00] VITALS: BP 94/56; PULSE 82; RESP 18; TEMP 36.2; O2SAT 95
[2023-05-19] MEDS: CARBIDOPA-LEVODOPA ER 50/200 TABLET 0.5 EACH PO (08:33)
[2023-05-19] MEDS: HEPARIN 5,000 UNIT/ML VIAL 5000 UNIT SUBCUT (08:39)
[2023-05-19] MEDS: ERTAPENEM 1 GM in SODIUM CHLORIDE 0.9% 100 ML IV (08:39)
[2023-05-19] MEDS: ASPIRIN EC 81 MG TABLET PO (08:41)
[2023-05-19] MEDS: ATORVASTATIN 20 MG TABLET 10 MG PO (08:41)
[2023-05-19] MEDS: FUROSEMIDE 20 MG/2 ML VIAL IV (08:41)
[2023-05-19] MEDS: GABAPENTIN 100 MG CAPSULE PO (08:42)
[2023-05-19] MEDS: FINASTERIDE 5 MG TABLET PO (08:42)
[2023-05-19] MEDS: TAMSULOSIN 0.4 MG CAPSULE 0.8 MG PO (08:42)
[2023-05-19 08:44] VITALS: BP 94/56; PULSE 82
[2023-05-19] MEDS: TIMOLOL 0.5% OPHTH 1 DROPS EYE-BOTH (08:44)
[2023-05-19] MEDS: INSULIN GLARGINE 100 UNIT/ML 3ML PEN 30 UNIT SUBCUT (08:45)
--- NOTE | 2023-05-19 08:59 | P.DS_ITS ---
History of Present Illness History of Present Illness Chief complaint: Resp Distress Narrative: The patient was a 73-year-old male with a history of CHF (diastolic), Parkinson's disease, hypertension, DM 2, prostate cancer, urinary retention, recurrent UTI, dyslipidemia, and pacemaker who presented with respiratory distress. He would called 911. He had a similar episode in March 2023 requiring high-flow oxygen in context of sepsis with ESBL urinary tract infection. The patient responded to ertapenem during that encounter. Today EMS found him to be in respiratory distress and have some wheezing. He was treated with nebs and then placed on noninvasive positive pressure ventilation. The patient was hypotensive. In the emergency department he was switched to BiPAP and given a fluid bolus with improvement of his blood pressure and a subsequent map of over 90. The patient does note intermittent catheter drainage dysfunction. He denies fevers or chills. Upon arrival in the CCU the patient is off from oxygen briefly and states he feels weak. He has not clearly short of breath but does appear anxious. He denies any chest pain or abdominal pain. He is really unable to provide much in terms of information. His notes he has been ill for about 2 days with primarily shortness of breath. He has not able to answer any other review of systems questions. He was placed on BiPAP shortly after arrival for his comfort. He was not hypoxic but did have labored breathing. Discharge Providers Provider Date of admission: 05/15/23 14:46 Discharge Date: 05/19/23 Primary care physician: Ravindra Goldsmith DO Consults: 05/17/23 08:33 Consult to Occupational Therapy Evaluate & Treat Comment: Physician Instructions: Evaluate and treat Consult to Physical Therapy Evaluate & Treat Comment: Physician Instructions: Evaluate and Treat Discharge provider: Ricardo Skaggs DO Summary Hospital Course Discharge Diagnosis: 1. Sepsis with lactic acidosis, leukocytosis, and tachypnea with a suspected infective source of pyelonephritis (recent ESBL), present on admission and sepsis resolved. 2. Volume responsive hypotension, present on admission and resolved. 3. Acute hypoxic respiratory failure, present on admission and resolved. 4. Severe lactic acidosis, present on admission and active. 5. Acute on chronic diastolic heart failure, present on admission and active. 6. UTI with history of ESBL (UA pos for Nitrite, protein, LE, WBC's, and many bacteria), present on admission and active. 7. Hypertension, not active at the time of admission. 8. Parkinson's disease, present on admission and active. 9. Urine retention, present on admission and active. Chronic mixon present. 10. Hyperlipidemia, present on admission stable. 11. Insulin-dependent diabetes mellitus 2, present on admission and active. Hospital Course: Admitted for pyelo and sepsis from recurrent ESBL UTI. Placed on ertapenem and improved. Urine culture grew ESBL sensitive to only carbapenems. Spoke with ID who recommended 10-14 days of treatment and they will see him in clinic on 05/24 at 9am. He had midline placed and discharged to SNF for abx through at least 05/24. Exam Vital Signs (past 8 hours): - 05/19/23 03:38 05/19/23 08:00 05/19/23 08:44 Temperature 97.8 F 97.1 F L Pulse Rate 60 82 82 Respiratory Rate 16 18 Blood Pressure 118/63 94/56 L 94/56 L Pulse Oximetry 99 95 Oxygen Flow Rate 0 0 Fraction of Inspired Oxygen 28 SaO2/FiO2 Ratio 346 Oxygen Delivery Method Room Air Oxygen Flow Rate 0 Narrative Exam Narrative: NAD, alert and oriented, fluent speech, calm. Chronically ill in appearance. Having some mild chorea-like movements. Normocephalic skull, EOMI, anicteric sclera, symmetric pupils. Oropharynx unremarkable, no droop. Neck supple, midline trachea, no adenopathy. Lungs clear with some scattered wheezing, normal rate and effort. Heart regular, no murmur gallop or rub. Abdomen is soft, non distended and non tender. Extremities are free of edema. Skin is free of rash or lesions. Joints are not swollen or deformed. Judgment appears to be normal. Objective Labs 05/18/23 03:54 05/18/23 03:54 [facility] Medical History History of urinary retention Hyperlipidemia History of nephrolithiasis Left nephrolithiasis Urinary retention Recurrent UTI History of prostate cancer Acne Shoulder pain Ankle pain Measles Chicken pox Prostate cancer (~2010) Anemia Benign prostatic hyperplasia GERD (gastroesophageal reflux disease) Hypertension Type 2 diabetes mellitus Parkinson's disease Congestive heart failure Surgical History History of prostate biopsy Anesthesia History of knee surgery Kidney stones Family History Father Stroke Hypertension Bacterial UTI Mother Cancer Sister Hypertension Aunt Diabetes mellitus Uncle Kidney stones Social History marital status: number of children: 3 household members: spouse and family Smoking Status: Former smoker alcohol intake: never Type(s) of exercise: walking frequency: 1-2 times per week Discharge Plan Discharge Plan Patient Disposition: SNF Discharge orders & Medications Prescriptions: New ertapenem 1 gram Recon Soln 1 g IV Q24H 6 Days Qty: 6 0RF Rx Instructions: until 05/25/23 Continued atorvastatin 10 mg tablet 10 mg PO DAILY Qty: 90 3RF metformin 850 mg tablet 850 mg PO TID Qty: 240 1RF losartan 50 mg tablet 50 mg PO DAILY Qty: 90 1RF omeprazole 20 mg capsule,delayed release(DR/EC) 20 mg PO DAILY Qty: 90 1RF potassium citrate 10 mEq (1,080 mg) tablet extended release 10 meq PO BID Qty: 180 1RF tamsulosin 0.4 mg capsule 0.8 mg PO DAILY Qty: 180 1RF gabapentin 100 mg capsule 100 mg PO 3XD Qty: 270 1RF aspirin [Adult Low Dose Aspirin] 81 mg tablet,delayed release (DR/EC) 81 mg PO DAILY timolol maleate 0.5 % drops 1 drp ophthalmic (eye) DAILY latanoprost 0.005 % drops 1 drp DAILY carbidopa-levodopa 25-100 mg tablet extended release 1 tab PO BID acetaminophen [Acetaminophen Extra Strength] 500 mg Tablet 500 mg PO Q6H PRN (Reason: Pain (Scale Score 4-6)) cranberry 400 mg Capsule 400 mg PO DAILY Rx Instructions: administer with a meal carbidopa-levodopa 25-100 mg tablet See Rx Instructions .ROUTE .COMPLEX Rx Instructions: take 3 tabs at 0600, 2.5 tabs at 1000, 3 tabs at 1400, 2.5 tabs at 1800, 2.5 tabs at 2200 temazepam 15 mg Capsule 15 mg PO BEDTIME PRN (Reason: Sleep) Qty: 30 0RF finasteride 5 mg tablet 5 mg PO DAILY insulin glargine [Lantus Solostar U-100 Insulin] 100 unit/mL (3 mL) insulin pen See Rx Instructions .ROUTE .COMPLEX Rx Instructions: 60 in morning, 64 units at bedtime entacapone 200 mg Tablet 100 mg PO 5XD hydrocodone-acetaminophen 5-325 mg Tablet 1 tab PO Q4HR PRN (Reason: Pain, Moderate (4-6)) Qty: 30 0RF Follow up/Referrals: Ravindra Goldsmith, [Primary Care Provider] - 2 Weeks Visit Report/Discharge Packet Stand Alone Forms: Patient Portal/API Discharge Data Primary Care Provider: Ravindra Goldsmith Quality VTE Deep Vein Thrombosis/Pulmonary Embolism Present on Admission: No
--- NOTE | 2023-05-19 09:15 | PT.IPTN ---
Current Diagnoses Sepsis, unspecified organism (05/15/23) Physical Therapy Treatment Note M2 PT-IP Current Condition Start: 05/17/23 17:52 Freq: NEEDED Status: Active Protocol: Document 05/17/23 15:30 AB (Rec: 05/17/23 18:07 AB [id number]) Physical Therapy Current Condition Current Condition Evaluation Date 05/17/23 Treatment Diagnosis UTI; sepsis; difficulty in walking Onset Date 05/15/23 M3 PT-IP Subjective Start: 05/17/23 17:52 Freq: NEEDED Status: Active Protocol: Document 05/19/23 10:47 TS (Rec: 05/19/23 10:53 TS [id number]) Subjective Physical Therapy Visit Type Type Treatment Note Visit Start Time 09:15 Visit Stop Time 09:30 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 M4 PT-IP Mobility and Gait Start: 05/17/23 17:52 Freq: NEEDED Status: Active Protocol: Document 05/19/23 10:47 TS (Rec: 05/19/23 10:53 TS [id number]) PT-Transfer Assessment Sit to and From Stand Sit to and from Stand Contact Guard Assistance,1 Person Assistance Equipment Transfer Assistive Device Gait Belt,Front Wheeled Walker Orthotic/Prosthetic Devices or Brace: No Comments Mobility Comments STS from chair CGA with FWW, pt demonstrates no retroleaning this session. He ambulated in hallway ~150'SBA with increased step lenght and height with use of FWW. Pt ambulated back to room, was left in chair with all needs met. Gait Assessment Gait Gait Assistance Required: Standby Assistance Distance (Feet) 150 Able to Maintain Weight Bearing Status Yes During Gait Assistive Devices Assistive Device Gait Belt,Front Wheeled Walker Orthotic/Prosthetic Devices or Brace: No Gait Deviations General Gait Pattern Ataxic,Decreased Stride Length ,Decreased Feet Clearance Factors Limiting Gait Function Factors Limiting Gait Function Decreased Activity Tolerance, Decreased Strength,Difficulty Following Directions, Incoordination,Limited Range of Motion,Poor Balance,Poor Safety Awareness PT-Balance Assessment Sitting Balance and Reactions Static Sitting Balance Ability Good Dynamic Sitting Balance Ability Good Standing Balance and Reactions Static Standing Balance Ability Fair Dynamic Standing Balance Ability Fair Device Used FWW M5 PT-IP Objective Assessments Start: 05/17/23 17:52 Freq: NEEDED Status: Active Protocol: Document 05/17/23 15:30 AB (Rec: 05/17/23 18:07 AB [id number]) Orientation Orientation/Cognition Level of Alertness Alert Orientation Name,Situation Safety Awareness Decreased Safety Awareness Memory Description Short Term Impaired Gross Range of Motion Lower Extremity ROM Assessment Within Functional Limits Strength Lower Extremity Strength Hip 3+/5 Knee 4-/5 Muscle Tone Muscle Tone WNL Yes M6 PT-IP Treatment Start: 05/17/23 17:52 Freq: NEEDED Status: Active Protocol: Document 05/19/23 10:47 TS (Rec: 05/19/23 10:53 TS [id number]) Physical Therapy Treatment Education Education Provided Safety M7 PT-IP Assessment and Plan Start: 05/17/23 17:52 Freq: NEEDED Status: Active Protocol: Document 05/19/23 10:47 TS (Rec: 05/19/23 10:53 TS [id number]) PT Summary Assessment and Plan Potential Rehabilitation Potential Fair Summary Impairments Pain,ROM,Strength,Balance, Coordination,Sensation,Tone, Cognition,Bed Mobility, Transfers,Gait,Activity Tolerance Progress Towards Goals Progressing Toward Goals Assessment Summary Sarbjit is making good progress with his mobility. He demonstrates improved balance and strength with STS and has no retroleaning. He demonstrated increased step length and height with his gait this session. PT continues to recommend SNF vs home at this time. Goals Bed Mobility Goal Independent Transfer Goal Independent,Front Wheeled Walker Gait Goal Independent,Front Wheel Walker Gait Distance 150 Other Goals improve transfers and ambultion using 4WW ~ 200 ft mod I up/down 3 platform steps using FWW/4WW SBA Days to Meet Goals 10 Frequency of Treatment Frequency Of Treatment Once a Day Treatment Plan Physical Therapy Treatment Plan Bed Mobility Training,Transfer Training,Gait Training, Therapeutic Exercise,Balance Retraining,Discharge Planning, Hot or Cold Pack,Neuromuscular Re-ed,Coordination Retraining ,Manual Therapy Precautions Other Precautions falls Recommendations To Nursing Amount of Assist Needed 1 Person Assist Discharge Recommendations PT Discharge Recommendations Home with 30/08 Assist Available,Home Health,SNF Rehab,Home vs SNF Transportation Needs at Discharge Private Vehicle
[2023-05-19] MEDS: CARBIDOPA-LEVODOPA 25/100 TABLET 2.5 EACH PO (10:51)
--- NOTE | 2023-05-19 12:31 | CM.DPNOTE ---
DC Note Discharge to [facility] today as planned, patient and spouse remain aware and agreeable. Transport arranged for 1130 p/u. JUAN Perez, kindly agreed to complete all coordination for discharge to SNF. PASRR completed, DC ppk and meds completed by provider, all sent to [facility]. Plan: Discharge to [facility], ongoing IV ertapenem, via w/c transport. RANJITH
== END 2023-05-19 11:40 | DRG 871 ==
LOC: ED 13:49 → AC 14:46 → ICU 15:01
PROVIDERS: Admitting Provider Hospitalist; Emergency Provider Emergency Medicine; PCP Family Medicine; Referring Provider Emergency Medicine; Visit Provider Hospitalist
DX: A41.9 Sepsis, unspecified organism (principal); I50.33 Acute on chronic diastolic (congestive) heart failure; J96.01 Acute respiratory failure with hypoxia; N10 Acute pyelonephritis; E87.29 Other acidosis; I11.0 Hypertensive heart disease with heart failure; D64.9 Anemia, unspecified; E11.9 Type 2 diabetes mellitus without complications; T83.031A Leakage of indwelling urethral catheter, initial encounter; Y84.6 Urinary catheterization as the cause of abnormal reaction of the patient, or of later complication, without mention of misadventure at the time of the procedure; E78.5 Hyperlipidemia, unspecified; K21.9 Gastro-esophageal reflux disease without esophagitis; R33.9 Retention of urine, unspecified; G20.A1 Parkinson's disease without dyskinesia, without mention of fluctuations; Z87.440 Personal history of urinary (tract) infections; Z85.46 Personal history of malignant neoplasm of prostate; Z95.0 Presence of cardiac pacemaker; Z82.3 Family history of stroke; Z82.49 Family history of ischemic heart disease and other diseases of the circulatory system; Z83.3 Family history of diabetes mellitus; Z84.1 Family history of disorders of kidney and ureter; Z87.891 Personal history of nicotine dependence; Z79.82 Long term (current) use of aspirin; Z79.84 Long term (current) use of oral hypoglycemic drugs; Z79.4 Long term (current) use of insulin; Z87.442 Personal history of urinary calculi; L89.899 Pressure ulcer of other site, unspecified stage
CPT/HCPCS: 36415; 36600; 71045; 80048; 80053; 81001; 82550; 82607; 82805; 82962; 83605; 83880; 84145; 84484; 85025; 85610; 85730; 87040; 87077; 87086; 87186; 87633; 87797; 93005; 93010; 94660; 97116; 97162; 97166; 97530; 97535; 99285; 99291; 99292; J1335; J1642; J1644; J1815; J1940; J2060; J2185

== ENCOUNTER 2023-06-11 17:54 | Emergency (ER) | payer MEDICARE, OTHER, SELFPAY ==
[2023-05-15 16:05] VITALS: BMI 34.9
[2023-05-15 20:39] VITALS: PULSE 79; RESP 22; O2SAT 94
[2023-06-11 18:00] VITALS: BP 227/101; PULSE 90; RESP 16; TEMP 36.9; O2SAT 98; BMI 33.9
--- NOTE | 2023-06-11 18:56 | PC.NURSE ---
Patient and reports blood from penis and discharge in diaper that smelled horrible. They also report blood in urine in mixon bag this morning. Penis tip appears reddened and is tender. I cleaned it gently with wipes and removed whitish discharge. Urine obtained from catheter appears dark yellow and clear with no visible blood.
[2023-06-11 18:57] LABS: Appearance Urine UA CLEAR; Bilirubin Urine UA NEGATIVE (NEGATIVE); Color Urine UA YELLOW; Glucose Urine UA 3+ g/dL (Negative); Ketones Urine UA NEGATIVE (NEGATIVE); Leukocyte Esterase Urine UA NEGATIVE (NEGATIVE); Nitrite Urine UA NEGATIVE (Negative); Occult Blood Urine UA 3+ (Negative); Protein Urine UA 1+ (Negative); Urobilinogen Urine UA 0.2 E.U./dL (0.2)
--- NOTE | 2023-06-11 18:58 | PC.NURSE ---
1845 Urine taken from top port of mixon.
[2023-06-11 19:14] LABS: Bacteria Urine Occasional (0-1); RBC Urine 5-10/HPF (0-5/HPF); Squamous Epithelial Cell Urine None Seen (0-5/HPF); Urine Volume 10mL (spun); WBC Urine None Seen (0-5/HPF)
--- NOTE | 2023-06-11 19:15 | ED.GENADULT ---
HPI - General Adult General Chief complaint: Urogenital-Male Stated complaint: catheter issue Time Seen by Provider: 06/11/23 18:13 Source: patient Mode of arrival: Ambulatory History of Present Illness HPI narrative: 73-year-old male. Has a urinary catheter in place. Has been in place for the past month although his current catheter has only been in place for less than a week. Has not had any fevers. The catheter was placed while he was an inpatient in the hospital. He does not have follow-up with Urology. He was currently on antibiotics. He is here for evaluation of leaking catheter, blood in his brief and dark foul-smelling urine. No abdominal pain. No change in bowel habits. No vomiting. Related Data Home Medications Medication Instructions Recorded Confirmed latanoprost 0.005 % eye drops 1 drp DAILY 06/02/22 05/15/23 timolol maleate 0.5 % eye drops 1 drp ophthalmic (eye) DAILY 06/02/22 05/15/23 aspirin 81 mg tablet,delayed 81 mg PO DAILY 10/21/22 05/15/23 release (Adult Low Dose Aspirin) acetaminophen 500 mg tablet 500 mg PO Q6H PRN Pain (Scale 04/03/23 05/15/23 (Acetaminophen Extra Strength) Score 4-6) carbidopa 25 mg-levodopa 100 mg See Rx Instructions .Route .COMPLEX 04/03/23 05/15/23 tablet carbidopa ER 25 mg-levodopa 100 mg 1 tab PO BID 04/03/23 05/15/23 tablet,extended release cranberry 400 mg capsule 400 mg PO DAILY 04/03/23 05/15/23 finasteride 5 mg tablet 5 mg PO DAILY 05/15/23 05/15/23 insulin glargine 100 unit/mL (3 See Rx Instructions .Route .COMPLEX 05/15/23 05/15/23 mL) subcutaneous pen (Lantus Solostar U-100 Insulin) entacapone 200 mg tablet 100 mg PO 5XD 05/18/23 05/18/23 Previous Rx's Medication Instructions Recorded atorvastatin 10 mg tablet 10 mg PO DAILY #90 tabs 12/14/22 metformin 850 mg tablet 850 mg PO TID #240 tabs 01/03/23 losartan 50 mg tablet 50 mg PO DAILY #90 tabs 01/11/23 omeprazole 20 mg capsule,delayed 20 mg PO DAILY #90 caps 01/17/23 release potassium citrate 10 mEq (1,080 10 meq PO BID #180 tabs 01/17/23 mg) tablet,extended release tamsulosin 0.4 mg capsule 0.8 mg (2 x 0.4 mg) PO DAILY #180 01/17/23 caps gabapentin 100 mg capsule 100 mg PO 3XD #270 caps 02/01/23 temazepam 15 mg capsule 15 mg PO BEDTIME PRN Sleep #30 caps 04/06/23 hydrocodone 5 mg-acetaminophen 325 1 tab PO Q4HR PRN Pain, Moderate 05/19/23 mg tablet (4-6) #30 tabs lidocaine HCl 2 % mucosal solution 1 applic mucous membrane BID-TID 06/11/23 (Lidocaine Viscous) PRN pain #100 mL Allergies Allergy/AdvReac Type Severity Reaction Status Date / Time No Known Drug Allergies Allergy Verified 05/05/23 14:25 Review of Systems Review of Systems Narrative: See HPI Patient History Medical History History of urinary retention Hyperlipidemia History of nephrolithiasis Left nephrolithiasis Urinary retention Recurrent UTI History of prostate cancer Acne Shoulder pain Ankle pain Measles Chicken pox Prostate cancer (~2010) Anemia Benign prostatic hyperplasia GERD (gastroesophageal reflux disease) Hypertension Type 2 diabetes mellitus Parkinson's disease Congestive heart failure Surgical History History of prostate biopsy Anesthesia History of knee surgery Kidney stones Family History Father Stroke Hypertension Bacterial UTI Mother Cancer Sister Hypertension Aunt Diabetes mellitus Uncle Kidney stones Social History marital status: number of children: 3 household members: spouse and family Smoking Status: Former smoker alcohol intake: never Type(s) of exercise: walking frequency: 1-2 times per week Smoking Status: Former smoker tobacco type: cigarettes alcohol intake frequency: 0-2 drinks per day Substance Use Type: does not use Exam Initial Vital Signs Initial Vital Signs: Vital Signs Temperature 98.5 F 06/11/23 18:00 Pulse Rate 90 06/11/23 18:00 Respiratory Rate 16 06/11/23 18:00 Blood Pressure 227/101 H 06/11/23 18:00 Pulse Oximetry 98 05/04/24 18:00 Oxygen Delivery Method Room Air 06/11/23 18:00 Const General: cooperative and comfortable GI Inspection: normal to inspection and non-distended External: normal external exam, circumcised and no erythema Penis: normal penis Meatus: meatus normal Course Orders Ordered: ED Orders 06/11/23 18:45 Urinalysis and Microscopic Stat Urine Culture Stat Vital Signs Vital signs: Vital Signs - 8 hr 06/11/23 18:00 06/11/23 19:35 Temperature 98.5 F 98.1 F Pulse Rate 90 Respiratory Rate 16 Blood Pressure 227/101 H Pulse Oximetry 98 Oxygen Delivery Method Room Air Medical Decision Making Lab Data Lab results reviewed: Yes I reviewed the patient's lab results. Labs: Lab Results 06/11/23 Range/Units 18:45 Urine Color Yellow Urine Appearance Clear Urine pH 7.0 (4.5-8.0) Ur Specific [place] 1.010 (1.000-1.035) Urine Protein 1+ H (Negative) Urine Glucose (UA) 3+ H (Negative) g/dL Urine Ketones Negative (NEGATIVE) Urine Occult Blood 3+ H (Negative) Urine Nitrate Negative (Negative) Urine Bilirubin Negative (NEGATIVE) Urine Urobilinogen 0.2 (0.2) E.U./dL Ur Leukocyte Esterase Negative (NEGATIVE) Urine RBC 5-10/hpf H (0-5/HPF) Urine WBC None seen (0-5/HPF) Ur Squamous Epith Cells None seen (0-5/HPF) Urine Bacteria Occasional (0-1) D (None) Vol Urine Centrifuged 10ml (spun) MDM Narrative Medical decision making narrative: Catheter is draining. We will wait for the culture results before treating with any antibiotics because he was currently on antibiotics. His external exam is unremarkable. Does not appear to be any leakage today. No signs of any external infection. We will leave the catheter in place. Advised that the patient follow up with his primary doctor and also Urology. He has an appointment his primary doctor in the next couple days. He was given return precautions and follow-up instructions. He expressed understanding and agreement. Discharge Plan Departure Patient Disposition: Home Clinical Impression: Complication of Churchill catheter Instructions: How to Care for Your Churchill Catheter -- Male Activity Restrictions/Additional Instructions: Keep your scheduled appointment with your primary doctor on the 10th and discuss with him/her a referral to see Urology. It was important to try to keep the catheter secured. This will decrease the chances of developing quite a bit of irritation. Return to the emergency department for new symptoms Prescriptions: New lidocaine HCl [Lidocaine Viscous] 2 % solution 1 applic mucous membrane BID-TID PRN (Reason: pain) Qty: 100 0RF No Action atorvastatin 10 mg tablet 10 mg PO DAILY Qty: 90 3RF metformin 850 mg tablet 850 mg PO TID Qty: 240 1RF losartan 50 mg tablet 50 mg PO DAILY Qty: 90 1RF omeprazole 20 mg capsule,delayed release(DR/EC) 20 mg PO DAILY Qty: 90 1RF potassium citrate 10 mEq (1,080 mg) tablet extended release 10 meq PO BID Qty: 180 1RF tamsulosin 0.4 mg capsule 0.8 mg PO DAILY Qty: 180 1RF gabapentin 100 mg capsule 100 mg PO 3XD Qty: 270 1RF aspirin [Adult Low Dose Aspirin] 81 mg tablet,delayed release (DR/EC) 81 mg PO DAILY timolol maleate 0.5 % drops 1 drp ophthalmic (eye) DAILY latanoprost 0.005 % drops 1 drp DAILY carbidopa-levodopa 25-100 mg tablet extended release 1 tab PO BID acetaminophen [Acetaminophen Extra Strength] 500 mg Tablet 500 mg PO Q6H PRN (Reason: Pain (Scale Score 4-6)) cranberry 400 mg Capsule 400 mg PO DAILY Rx Instructions: administer with a meal carbidopa-levodopa 25-100 mg tablet See Rx Instructions .ROUTE .COMPLEX Rx Instructions: take 3 tabs at 0600, 2.5 tabs at 1000, 3 tabs at 1400, 2.5 tabs at 1800, 2.5 tabs at 2200 temazepam 15 mg Capsule 15 mg PO BEDTIME PRN (Reason: Sleep) Qty: 30 0RF finasteride 5 mg tablet 5 mg PO DAILY insulin glargine [Lantus Solostar U-100 Insulin] 100 unit/mL (3 mL) insulin pen See Rx Instructions .ROUTE .COMPLEX Rx Instructions: 60 in morning, 64 units at bedtime entacapone 200 mg Tablet 100 mg PO 5XD hydrocodone-acetaminophen 5-325 mg Tablet 1 tab PO Q4HR PRN (Reason: Pain, Moderate (4-6)) Qty: 30 0RF Referrals: Chapo Richardson MD [Physician] - Ravindra Goldsmith DO [Primary Care Provider] - Stand Alone Forms: Patient Portal/API
[2023-06-11 19:35] VITALS: TEMP 36.7
== END 2023-06-11 19:50 | disposition home or self-care (01) ==
PROVIDERS: Emergency Provider Emergency Medicine; PCP Family Medicine
DX: T83.9XXA Unspecified complication of genitourinary prosthetic device, implant and graft, initial encounter (principal); Z79.899 Other long term (current) drug therapy
CPT/HCPCS: 81001; 87077; 87086; 99282

== ENCOUNTER 2023-06-14 21:50 | Emergency (ER) | payer MEDICARE, OTHER, SELFPAY ==
[2023-05-15 16:05] VITALS: BMI 34.9
[2023-05-15 20:39] VITALS: PULSE 79; RESP 22; O2SAT 94
[2023-06-14] VITALS (13 sets, daily range): BP systolic 122–219; BP diastolic 58–100; PULSE 74–92; RESP 21–35; TEMP 36.8; O2SAT 96–100; BMI 33.9
--- NOTE | 2023-06-14 21:53 | ED_ITS ---
HPI - General Adult General Chief complaint: Shortness of Breath/Dyspnea Stated complaint: dyspnea, uti Time Seen by Provider: 06/14/23 21:52 History of Present Illness HPI narrative: 73yoM with PMH COPD, urinary retention with indwelling mixon catheter presents by EMS from home for dyspnea and decreased urine output. Patient noticed worsening shortness of breath this evening. Recently presented to ED for catheter malfunction. Patient is saturating well on room air on arrival, however EMS reported that the patient began to have a slight wheeze EN route, and so they placed him on a nebulizer treatment. Related Data Home Medications Medication Instructions Recorded Confirmed latanoprost 0.005 % eye drops 1 drp DAILY 06/02/22 06/17/23 timolol maleate 0.5 % eye drops 1 drp ophthalmic (eye) DAILY 06/02/22 06/17/23 aspirin 81 mg tablet,delayed 81 mg PO DAILY 10/21/22 06/17/23 release (Adult Low Dose Aspirin) acetaminophen 500 mg tablet 500 mg PO Q6H PRN Pain (Scale 04/03/23 06/17/23 (Acetaminophen Extra Strength) Score 4-6) carbidopa 25 mg-levodopa 100 mg See Rx Instructions .Route .COMPLEX 04/03/23 06/17/23 tablet carbidopa ER 25 mg-levodopa 100 mg 1 tab PO BID 04/03/23 06/17/23 tablet,extended release cranberry 400 mg capsule 400 mg PO DAILY 04/03/23 06/17/23 finasteride 5 mg tablet 5 mg PO DAILY 05/15/23 06/17/23 insulin glargine 100 unit/mL (3 See Rx Instructions .Route .COMPLEX 05/15/23 06/17/23 mL) subcutaneous pen (Lantus Solostar U-100 Insulin) entacapone 200 mg tablet 100 mg PO 5XD 05/18/23 06/17/23 fosfomycin tromethamine 3 gram PO 06/17/23 06/17/23 oral packet Previous Rx's Medication Instructions Recorded atorvastatin 10 mg tablet 10 mg PO DAILY #90 tabs 12/14/22 metformin 850 mg tablet 850 mg PO TID #240 tabs 01/03/23 losartan 50 mg tablet 50 mg PO DAILY #90 tabs 01/11/23 omeprazole 20 mg capsule,delayed 20 mg PO DAILY #90 caps 01/17/23 release potassium citrate 10 mEq (1,080 10 meq PO BID #180 tabs 01/17/23 mg) tablet,extended release tamsulosin 0.4 mg capsule 0.8 mg (2 x 0.4 mg) PO DAILY #180 01/17/23 caps gabapentin 100 mg capsule 100 mg PO 3XD #270 caps 02/01/23 temazepam 15 mg capsule 15 mg PO BEDTIME PRN Sleep #30 caps 04/06/23 hydrocodone 5 mg-acetaminophen 325 1 tab PO Q4HR PRN Pain, Moderate 05/19/23 mg tablet (4-6) #30 tabs lidocaine HCl 2 % mucosal solution 1 applic mucous membrane BID-TID 06/11/23 (Lidocaine Viscous) PRN pain #100 mL fluconazole 150 mg tablet 150 mg PO DAILY #4 tabs 06/14/23 Allergies Allergy/AdvReac Type Severity Reaction Status Date / Time No Known Drug Allergies Allergy Verified 06/14/23 22:03 Review of Systems Review of Systems Narrative: See HPI Patient History Medical History (Updated 06/17/23 @ 11:14 by Ravindra Goldsmith DO) History of urinary retention Hyperlipidemia History of nephrolithiasis Left nephrolithiasis Urinary retention Recurrent UTI History of prostate cancer Acne Shoulder pain Ankle pain Measles Chicken pox Prostate cancer (~2010) Anemia Benign prostatic hyperplasia GERD (gastroesophageal reflux disease) Hypertension Type 2 diabetes mellitus Parkinson's disease Congestive heart failure Surgical History History of prostate biopsy Anesthesia History of knee surgery Kidney stones Family History Father Stroke Hypertension Bacterial UTI Mother Cancer Sister Hypertension Aunt Diabetes mellitus Uncle Kidney stones Social History marital status: number of children: 3 household members: spouse and family Smoking Status: Former smoker alcohol intake: never Type(s) of exercise: walking frequency: 1-2 times per week Smoking Status: Former smoker tobacco type: cigarettes alcohol intake frequency: 0-2 drinks per day Substance Use Type: does not use Exam Initial Vital Signs Initial Vital Signs: Vital Signs Temperature 98.3 F 06/14/23 21:55 Pulse Rate 90 06/14/23 21:55 Respiratory Rate 32 H 06/14/23 21:55 Blood Pressure 214/100 H 06/14/23 21:55 Pulse Oximetry 100 06/14/23 21:55 Oxygen Delivery Method Oximask 06/14/23 21:55 Oxygen Flow Rate 6 06/14/23 21:55 Const: Awake, alert, appears chronically unwell, frail Cardiac: regular rate, regular rhythm RESP: Mild increased work of breathing, conversational on room air, tachypnea GI: Soft, nontender, nondistended Skin: Warm, Dry, intact, no rashes Neuro: AO x3, CN II-XII grossly intact, moves all extremities Course Orders Ordered: Discontinued Medications Fluconazole (Fluconazole 100 Mg Tablet) 150 mg PO NOW ONE Stop: 06/14/23 23:35 Last Admin: 06/14/23 23:56 Dose: 150 mg Documented By: MERLE Vital Signs Vital signs: Vital Signs - 8 hr 06/14/23 21:55 06/14/23 21:57 06/14/23 22:00 Temperature 98.3 F Pulse Rate 90 87 Respiratory Rate 32 H 35 H Blood Pressure 214/100 H 214/100 H Pulse Oximetry 100 100 Oxygen Delivery Method Oximask Oximask Oxygen Flow Rate 6 6 06/14/23 22:00 06/14/23 22:15 06/14/23 22:22 Temperature Pulse Rate 86 92 H Respiratory Rate 29 H 32 H Blood Pressure 219/95 H 219/95 H Pulse Oximetry 100 99 Oxygen Delivery Method Oximask Nasal Cannula Oxygen Flow Rate 6 3 06/14/23 22:22 06/14/23 22:30 06/14/23 22:31 Temperature Pulse Rate 91 H 86 Respiratory Rate 31 H 28 H Blood Pressure 170/75 H Pulse Oximetry 99 98 Oxygen Delivery Method Nasal Cannula Oxygen Flow Rate 06/14/23 22:31 06/14/23 22:45 06/14/23 22:45 Temperature Pulse Rate 84 80 Respiratory Rate 27 H 25 H Blood Pressure 144/67 H Pulse Oximetry 99 97 Oxygen Delivery Method Nasal Cannula Oxygen Flow Rate 06/14/23 23:00 06/14/23 23:15 06/14/23 23:15 Temperature Pulse Rate 77 74 Respiratory Rate 24 22 Blood Pressure 122/58 L Pulse Oximetry 96 99 Oxygen Delivery Method Room Air Oxygen Flow Rate 06/14/23 23:30 06/14/23 23:30 Temperature Pulse Rate 75 Respiratory Rate 21 Blood Pressure 126/61 Pulse Oximetry 98 Oxygen Delivery Method Room Air Oxygen Flow Rate Medical Decision Making Lab Data 06/14/23 22:00 06/14/23 22:00 Labs: Lab Results 06/14/23 06/14/23 06/14/23 Range/Units 22:00 22:19 22:25 WBC 10.8 (4.5-11.0) X10^3/uL RBC 4.10 L (4.5-5.9) X10^6/uL Hgb 11.4 L (13.5-17.5) g/dL Hct 34.3 L (41-53) % MCV 83.6 (80-100) fL MCH 27.8 (26-34) PG MCHC 33.2 (30-36) % RDW 16.3 H (11.6-14.8) % Plt Count 231 (150-400) X10^3/uL Neut % (Auto) 72.6 (50-75) % Lymph % (Auto) 16.9 L (25-40) % Cache % (Auto) 7.3 (3-14) % Eos % (Auto) 2.0 (2-4) % Baso % (Auto) 1.2 (0-2) % Neut # (Auto) 7800 H (7484-4754) /uL Lymph # (Auto) 1800 (7261-4857) /uL Cache # (Auto) 800 (0-900) /uL Eos # (Auto) 200 (0-450) /uL Baso # (Auto) 100 (0-100) /uL Sodium 135 L (137-145) mmol/L Potassium 3.7 (3.4-5.1) mmol/L Chloride 105 (98-107) mmol/L Carbon Dioxide 22 (22-32) mmol/L BUN 17 (9-20) mg/dL Creatinine 0.88 (0.66-1.25) mg/dL Estimated GFR > 60 (>60) mL/min BUN/Creatinine Ratio 19.3 (6-22) Glucose 86 (80-110) mg/dL Lactate 3.0 H (0.7-2.1) mmol/L Calcium 9.3 (8.4-10.2) mg/dL Total Bilirubin 0.5 (0.2-1.3) mg/dL AST 19 (17-59) IU/L ALT 10 (<50) IU/L Alkaline Phosphatase 82 (38-126) U/L Total Creatine Kinase 93 (55-170) U/L Troponin I < 0.012 (0.01-0.034) ng/mL Total Protein 7.4 (6.3-8.2) g/dL Albumin 4.4 (3.5-5.0) g/dL Globulin 3.0 (1.7-4.1) g/dL Albumin/Globulin Ratio 1.5 (1.0-2.8) Procalcitonin 0.06 (<0.5) ng/mL Urine Color Yellow Urine Appearance Clear Urine pH 6.0 (4.5-8.0) Ur Specific [place] <=1.005 (1.000-1.035) Urine Protein Negative (Negative) Urine Glucose (UA) Negative (Negative) g/dL Urine Ketones Negative (NEGATIVE) Urine Occult Blood Negative (Negative) Urine Nitrate Negative (Negative) Urine Bilirubin Negative (NEGATIVE) Urine Urobilinogen 0.2 (0.2) E.U./dL Ur Leukocyte Esterase Negative (NEGATIVE) Urine RBC None seen (0-5/HPF) Urine WBC None seen (0-5/HPF) Ur Squamous Epith Cells 0-1 /hpf (0-5/HPF) Calcium Oxalate Crystal Few H Urine Bacteria None seen (None) Urine Yeast 1-5/hpf H (None) Ur Culture Indicated? Specimen cultured Vol Urine Centrifuged 10ml (spun) A.calcoaceticus-baumannii cmplx PCR Cancelled Bacteroides fragilis Cancelled Margarita albicans (PCR) Cancelled Margarita auris (PCR) Cancelled C. glabrata (PCR) Cancelled C. krusei (PCR) Cancelled C. parapsilosis (PCR) Cancelled C. tropicalis (PCR) Cancelled C. neoform/gattii (PCR) Cancelled Enterobacterales (PCR) Cancelled E. cloacae complex PCR Cancelled Enterococc faecalis PCR Cancelled Enterococc faecium PCR Cancelled E. coli (PCR) Cancelled H. influenzae (PCR) Cancelled Klebsiella aerogenes (PCR) Cancelled Klebsiella oxytoca PCR Cancelled Klebsiella pneumoniae Cancelled List. monocytogenes PCR Cancelled N. meningitidis (PCR) Cancelled Proteus species (PCR) Cancelled Salmonella spp. (PCR) Cancelled Serratia marcescens PCR Cancelled Staphylococcus sp PCR Cancelled Staph aureus (PCR) Cancelled mecA/C & MREJ Resist Gene Cancelled mecA/C-Methicil Resis Gene Cancelled mcr-1 Colistin Res Gene PCR Cancelled Staph epidermidis (PCR) Cancelled Staph lugdunensis PCR Cancelled S. maltophilia (PCR) Cancelled Streptococcus sp PCR Cancelled Group A Strep (PCR) Cancelled Strep agalactiae (PCR) Cancelled Strep pneumoniae (PCR) Cancelled P. aeruginosa (PCR) Cancelled Cal/B-Vanco Res Genes Cancelled blaIMP Car res Gene PCR Cancelled KPC-Carbap Res Gene PCR Cancelled blaNDM Car Res Gene PCR Cancelled OXA-48 Carbapenem Resis Gene (PCR) Cancelled blaVIM Car Res Gene PCR Cancelled CTX-M Gene Resistance (PCR) Cancelled Point of Care Testing Glucose POC 74 Point of care testing: Point of Care Testing Glucose POC 74 Imaging Data Chest x-ray: My Impression: PROCEDURE: XR CHEST 1V INDICATIONS: dyspnea TECHNIQUE: One view of the chest was acquired. COMPARISON: [facility], CR, XR CHEST 1V, 05/15/2023, 12:53. [facility], CR, XR CHEST 1V, 04/04/2023, 23:12. FINDINGS: Surgical changes and devices: Right chest wall nerve stimulator partially seen Lungs and pleura: Low lung volumes. Mild prominence of the interstitium persists. Mediastinum: Heart size is at the upper limit of normal. Aortic calcifications. Bones and chest wall: Unremarkable IMPRESSION: Low lung volumes with interstitial prominence, possibly edema or atypical infection. Consider future imaging surveillance to assess for resolution. Limited single view radiograph. Dictated by: Raimundo Wu M.D. on 06/14/2023 at 22:26 Approved by: Raimundo Wu M.D. on 06/14/2023 at 22:26 MDM Narrative Medical decision making narrative: Brought in by EMS for shortness of breath and decreased urine output. Mixon catheter replaced 3 days prior in the emergency department. Shortly after arrival it was noticed by nursing staff that the patient's Mixon catheter tubing was kinked and not draining. The mixon was de-twisted and nearly 2L of urine was drained with resolution of symptoms. Laboratory work is reviewed, no leukocytosis, normal kidney function, normal electrolytes. Chest x-ray read as low lung volumes versus atypical infection, however since patient's symptoms resolved after drainage of urine and he was no leukocytosis or any further respiratory symptoms this is likely due to crowding from poor inspiration effort. Urinalysis positive for yeast. Patient given fluconazole and a prescription sent to pharmacy of choice. Patient counseled to follow up with his primary care physician. Discharge Plan Departure Patient Disposition: Home Clinical Impression: Acute dyspnea Complication of Mixon catheter Qualifiers: Encounter type: initial encounter Qualified Code(s): T83.9XXA - Unspecified complication of genitourinary prosthetic device, implant and graft, initial encounter Instructions: How to Care for Your Mixon Catheter -- Male Activity Restrictions/Additional Instructions: Your urine had some yeast in it, the fluconazole should help to clear up your urine. Please follow up with your primary care physician. Prescriptions: New fluconazole 150 mg tablet 150 mg PO DAILY Qty: 4 0RF No Action atorvastatin 10 mg tablet 10 mg PO DAILY Qty: 90 3RF metformin 850 mg tablet 850 mg PO TID Qty: 240 1RF losartan 50 mg tablet 50 mg PO DAILY Qty: 90 1RF omeprazole 20 mg capsule,delayed release(DR/EC) 20 mg PO DAILY Qty: 90 1RF potassium citrate 10 mEq (1,080 mg) tablet extended release 10 meq PO BID Qty: 180 1RF tamsulosin 0.4 mg capsule 0.8 mg PO DAILY Qty: 180 1RF gabapentin 100 mg capsule 100 mg PO 3XD Qty: 270 1RF fosfomycin tromethamine 3 gram packet PO aspirin [Adult Low Dose Aspirin] 81 mg tablet,delayed release (DR/EC) 81 mg PO DAILY lidocaine HCl [Lidocaine Viscous] 2 % solution 1 applic mucous membrane BID-TID PRN (Reason: pain) Qty: 100 0RF timolol maleate 0.5 % drops 1 drp ophthalmic (eye) DAILY latanoprost 0.005 % drops 1 drp DAILY carbidopa-levodopa 25-100 mg tablet extended release 1 tab PO BID acetaminophen [Acetaminophen Extra Strength] 500 mg Tablet 500 mg PO Q6H PRN (Reason: Pain (Scale Score 4-6)) cranberry 400 mg Capsule 400 mg PO DAILY Rx Instructions: administer with a meal carbidopa-levodopa 25-100 mg tablet See Rx Instructions .ROUTE .COMPLEX Rx Instructions: take 3 tabs at 0600, 2.5 tabs at 1000, 3 tabs at 1400, 2.5 tabs at 1800, 2.5 tabs at 2200 temazepam 15 mg Capsule 15 mg PO BEDTIME PRN (Reason: Sleep) Qty: 30 0RF finasteride 5 mg tablet 5 mg PO DAILY insulin glargine [Lantus Solostar U-100 Insulin] 100 unit/mL (3 mL) insulin pen See Rx Instructions .ROUTE .COMPLEX Rx Instructions: 60 in morning, 64 units at bedtime entacapone 200 mg Tablet 100 mg PO 5XD hydrocodone-acetaminophen 5-325 mg Tablet 1 tab PO Q4HR PRN (Reason: Pain, Moderate (4-6)) Qty: 30 0RF Referrals: Ravindra Goldsmith, [Primary Care Provider] - Stand Alone Forms: Patient Portal/API
[2023-06-14 22:07] LABS: Add Manual Diff / Slide Review NO; Basophils Absolute Auto 100 /uL (0-100); Basophils Percent Auto 1.2 % (0-2); Eosinophils Absolute Auto 200 /uL (0-450); Hematocrit 34.3 % (41-53); Hemoglobin 11.4 g/dL (13.5-17.5); Lymphocytes Absolute Auto 1800 /uL (1100-4500); Lymphocytes Percent Auto 16.9 % (25-40); Mean Corpuscular HGB Conc 33.2 % (30-36); Mean Corpuscular Hemoglobin 27.8 PG (26-34); Mean Corpuscular Volume 83.6 fL (80-100); Monocytes Absolute Auto 800 /uL (0-900); Monocytes Percent Auto 7.3 % (3-14); Neutrophils Absolute Auto 7800 /uL (1500-7000); Neutrophils Percent Auto 72.6 % (50-75); Platelet Count 231 X10^3/uL (150-400); Red Cell Distribution Width 16.3 % (11.6-14.8); White Blood Cell Count 10.8 X10^3/uL (4.5-11.0)
[2023-06-14 22:18] LABS: Alanine Aminotransferase 10 IU/L (<50); Albumin 4.4 g/dL (3.5-5.0); Albumin Globulin Ratio 1.5 (1.0-2.8); Alkaline Phosphatase 82 U/L (38-126); Aspartate Aminotransferase 19 IU/L (17-59); BUN Creatinine Ratio 19.3 (6-22); Bilirubin Total 0.5 mg/dL (0.2-1.3); Blood Urea Nitrogen 17 mg/dL (9-20); Calcium 9.3 mg/dL (8.4-10.2); Carbon Dioxide 22 mmol/L (22-32); Chloride 105 mmol/L (98-107); Creatine Kinase 93 U/L (55-170); Estimated Glomerular Filt Rate > 60 mL/min (>60); Glucose 86 mg/dL (80-110); HEMOLYSIS < 15 (0-50); Potassium 3.7 mmol/L (3.4-5.1); Sodium 135 mmol/L (137-145); Total Protein 7.4 g/dL (6.3-8.2)
[2023-06-14 22:29] LABS: Troponin I < 0.012 ng/mL (0.01-0.034)
--- NOTE | 2023-06-14 22:30 | PC.NURSE ---
at bedside reports decreased urine output over last 24 hours and increase in leaking around the catheter into the depends. disconnected mixon bag to place cath tip syringe at port and obtain a 'clean catch' specimen from mixon and observed that mixon catheter was twisted and kinked above the stat lock. untwisted and urine pulled out 60ml. catheter bag hooked back up and urine continued to flow out. catheter bag started with 100ml in it.
[2023-06-14 22:34] LABS: Procalcitonin 0.06 ng/mL (<0.5)
--- NOTE | 2023-06-14 22:56 | PC.NURSE ---
trial on room error started 1054
[2023-06-14 23:18] LABS: Appearance Urine UA CLEAR; Bilirubin Urine UA NEGATIVE (NEGATIVE); Color Urine UA YELLOW; Glucose Urine UA NEGATIVE (Negative); Ketones Urine UA NEGATIVE (NEGATIVE); Leukocyte Esterase Urine UA NEGATIVE (NEGATIVE); Nitrite Urine UA NEGATIVE (Negative); Occult Blood Urine UA NEGATIVE (Negative); Protein Urine UA NEGATIVE (Negative); Specific Gravity Urine UA <=1.005 (1.000-1.035); Urobilinogen Urine UA 0.2 E.U./dL (0.2)
[2023-06-14 23:29] LABS: Bacteria Urine None Seen; Calcium Oxalate Crystals Urine Few; Culture Indicated Urine Specimen Cultured; RBC Urine None Seen (0-5/HPF); Squamous Epithelial Cell Urine 0-1 /HPF (0-5/HPF); Urine Volume 10mL (spun); WBC Urine None Seen (0-5/HPF)
[2023-06-14 23:37] LABS: Reflexed Lactate in 2 Hours Y
[2023-06-14] MEDS: FLUCONAZOLE 100 MG TABLET 150 MG PO (23:56)
== END 2023-06-15 00:06 | disposition home or self-care (01) ==
PROVIDERS: Emergency Provider Emergency Medicine; PCP Family Medicine
DX: R06.00 Dyspnea, unspecified (principal); T83.9XXA Unspecified complication of genitourinary prosthetic device, implant and graft, initial encounter
CPT/HCPCS: 36415; 71045; 80053; 81001; 82550; 82962; 83605; 84145; 84484; 85025; 87040; 87077; 87086; 93005; 93010; 99284; 99285

== ENCOUNTER 2023-07-15 22:02 | Emergency (ER) | payer MEDICARE, OTHER, SELFPAY ==
[2023-05-15 16:05] VITALS: BMI 34.9
[2023-05-15 20:39] VITALS: PULSE 79; RESP 22; O2SAT 94
--- NOTE | 2023-07-16 | DI.RAD.S_ITS ---
PROCEDURE: XR CHEST 1V INDICATIONS: sob TECHNIQUE: One view of the chest was acquired. COMPARISON: [facility], , XR CHEST 1V, 06/14/2023, 21:54. [facility], CR, XR CHEST 1V, 05/15/2023, 12:53. FINDINGS: Surgical changes and devices: Neurostimulator device is seen with pulse generator projecting over the right chest. Lungs and pleura: Chronic appearing bilateral interstitial markings. No acute consolidation. No pleural effusions or pneumothorax. Mediastinum: Mediastinal contours appear normal. Heart size is normal. Bones and chest wall: No suspicious bony lesions. Overlying soft tissues appear unremarkable. Old healed left posterior rib fractures. IMPRESSION: No acute cardiopulmonary abnormality is seen. Approved by: Ej Avendano M.D. on 07/15/2023 at 22:33
--- NOTE | 2023-07-16 13:13 | PC.NURSE ---
EMR downtime began 07/15/231999 and continued throughout the patient's stay. Refer to paper documentation.
[2023-07-16 18:05] LABS: PTT Partial Thromboplastin Tim 35 SECONDS (25.1-36.5); Prothrombin Time 11.3 SECONDS (9.4-12.5)
[2023-07-16 18:07] LABS: Add Manual Diff / Slide Review NO; Basophils Absolute Auto 100 /uL (0-100); Basophils Percent Auto 1.5 % (0-2); Eosinophils Absolute Auto 200 /uL (0-450); Eosinophils Percent Auto 2.5 % (2-4); Hematocrit 34.5 % (41-53); Hemoglobin 11.3 g/dL (13.5-17.5); Lymphocytes Absolute Auto 2100 /uL (1100-4500); Lymphocytes Percent Auto 23.3 % (25-40); Mean Corpuscular HGB Conc 32.8 % (30-36); Mean Corpuscular Hemoglobin 27.4 PG (26-34); Mean Corpuscular Volume 83.3 fL (80-100); Monocytes Absolute Auto 600 /uL (0-900); Monocytes Percent Auto 6.3 % (3-14); Neutrophils Absolute Auto 6100 /uL (1500-7000); Neutrophils Percent Auto 66.4 % (50-75); Platelet Count 232 X10^3/uL (150-400); Red Blood Cell Count 4.14 X10^6/uL (4.5-5.9); Red Cell Distribution Width 15.8 % (11.6-14.8); White Blood Cell Count 9.2 X10^3/uL (4.5-11.0)
[2023-07-16 18:08] LABS: Alanine Aminotransferase 8 IU/L (<50); Albumin 3.9 g/dL (3.5-5.0); Albumin Globulin Ratio 1.2 (1.0-2.8); Alkaline Phosphatase 89 U/L (38-126); Aspartate Aminotransferase 17 IU/L (17-59); BUN Creatinine Ratio 18.6 (6-22); Bilirubin Total 0.4 mg/dL (0.2-1.3); Blood Urea Nitrogen 21 mg/dL (9-20); Calcium 9.3 mg/dL (8.4-10.2); Carbon Dioxide 23 mmol/L (22-32); Chloride 110 mmol/L (98-107); Estimated Glomerular Filt Rate > 60 mL/min (>60); Globulin 3.2 g/dL (1.7-4.1); Glucose 142 mg/dL (80-110); HEMOLYSIS < 15 (0-50); NT-proBNP (BNP-Adult 18+) 368 pg/mL (<125); Potassium 4.4 mmol/L (3.4-5.1); Sodium 138 mmol/L (137-145); Total Protein 7.1 g/dL (6.3-8.2); Troponin I < 0.012 ng/mL (0.01-0.034)
== END 2023-07-16 01:20 | disposition home or self-care (01) ==
PROVIDERS: Emergency Provider Emergency Medicine; PCP Family Medicine
DX: R06.02 Shortness of breath (principal); R06.2 Wheezing
CPT/HCPCS: 71045; 80053; 83880; 84484; 85025; 85610; 85730; 93005; 93010; 99284

== ENCOUNTER 2023-08-26 09:11 | Day surgery (SDC) | payer MEDICARE, OTHER, SELFPAY ==
[2023-05-15 16:05] VITALS: BMI 34.9
[2023-05-15 20:39] VITALS: PULSE 79; RESP 22; O2SAT 94
[2023-08-23 08:46] VITALS: BMI 34.0
[2023-08-26] VITALS (11 sets, daily range): BP systolic 128–177; BP diastolic 62–84; PULSE 71–83; RESP 12–22; TEMP 36.1–37.3; O2SAT 94–100; BMI 34.0
--- NOTE | 2023-08-26 09:09 | PM.PREOP ---
Pre-operative Note Interval Note History & Physical reviewed/Exam performed by Physician: Yes Changes to H&P: No
[2023-08-26] MEDS: VANCOMYCIN 1,500 MG/300 ML PIGGYBACK 200 MG IV (09:45)
[2023-08-26] MEDS: LACTATED RINGERS 1,000 ML 21 ML IV (09:46)
[2023-08-26] MEDS: ALBUTEROL/IPRATROPIUM 3 ML AMPUL INH (10:46)
--- NOTE | 2023-08-26 10:56 | SUR.PREOP ---
per order instillation of gentamicin and vancomycin into mixon catheter. 100 ml every 15 for a total of 300 ml.
--- NOTE | 2023-08-26 12:11 | SUR.OPER ---
Lithotomy on padded OR bed, head on pillow, arms secured on padded arm boards at <90 degrees abduction. Legs secured in padded yellow fins stirrups.
[2023-08-26] MEDS: BUPIVACAINE 0.25% (PF) 30 ML, EPINEPHrine 0.15 MG INJ (12:19)
[2023-08-26] MEDS: BUPIVACAINE LIPOSOME 266 MG/20 ML VIAL INJ (12:20)
[2023-08-26] MEDS: BACITRACIN OINT 0.9 GM PCKT 1 APPLIC TOP (12:27)
--- NOTE | 2023-08-26 12:41 | PM.OP.1 ---
Operative Date/Time/Diagnoses Date of procedure: 08/26/23 Time of procedure: 12:41 Pre-op diagnosis: 1. Urinary retained Post-op diagnosis: same Procedure & Clinicians Procedure: 1. Placement suprapubic tube Same procedure as scheduled: Yes Indications: 1. urinary retention Surgeon: Chapo Richardson Click Yes if Unassisted: Yes Anesthesia Type: General and Local (1.33% Exparel plus 0.25% Marcaine with epinephrine) Operative Notes Findings: 1. Normal lower abdominal tissue planes. 2. Urethra-normal caliber without annular stricture or lesion. 2.5 cm ventral traumatic hypospadias. 3. External sphincter- coapted with normal overlying urothelium and vascularity. 4. Prostate-5 cm length with obstructing trilobar hyperplasia. 5. Bladder-severe trabeculation and cellule formation. Bolus edema and mild erythema secondary to catheter tip cystitis. No stones, neoplasm, or diverticulum seen. Closure Type: primary Specimen(s): none sent Applied: catheter (20 [place] Helenian silicone Churchill) Estimated Blood Loss (mL): 0 Blood products transfused: none Procedure in detail: Supine and administered. He was then repositioned abdomen, genitalia, and groin were then prepped and draped in sterile fashion. The wilson endoscope was passed and lower urinary tract with the findings as described above. The bladder was filled under direct visualization. The anterior abdominal wall over the pubic symphysis was then palpated confirming localization for placement under direct cystoscopic visualization. The wilson endoscope was then removed. The Lowsley retractor was then advanced to the lower urinary tract and positioned with the tip against see anterior superior bladder wall. The skin and subcutaneous tissue were then infiltrated just above the pubic symphysis. A sharp cut down through the midline was then conducted to the tip of the Lowsley retractor. The Lowsley retractor was then advanced and the jaws open. A 20 [place] Helenian silicone catheter was then positioned within the jaws of the Lowsley retractor. The jaws were then engaged tightly upon the tip of the 20 [place] silicone Churchill catheter. The lousy retractor was then withdrawn bringing the tip of the Churchill catheter out through the penile meatus. The lousy retractor was then released and removed. The wilson endoscope was then prepared and passed again into the bladder under direct visualization of the catheter tip as it was gently withdrawn into the bladder lumen. The balloon was filled with 10 cc of sterile saline. The bladder was then drained completely. The catheter was then secured to the skin using a double-arm 2-0 silk using Jona sandal technique in usual fashion. The skin was then cleaned and dried and antibiotic ointment was applied at the suprapubic site. Drain sponges were then implied with generous padding. Transparent Tegaderm was then applied over the gauze drain sponges. The catheter was then attached to gravity drainage. The patient was then repositioned in supine. The Churchill catheter was secured to the skin with a StatLock. The patient was then repositioned in supine, was awakened, and transferred to [facility] awake and in stable condition. Complications: none Post-operative Condition: stable Disposition: PACU Plan for aftercare: Discharge home
[2023-08-26] MEDS: VANCOMYCIN 1,000 MG VIAL 1000 MG TOP (12:51)
[2023-08-26] MEDS: GENTAMICIN IRR (12:54)
[2023-08-26] MEDS: SODIUM CHLORIDE IRR (12:54)
[2023-08-26] MEDS: DEXTROSE 50 % IN WATER 25 GM/50 ML SYRINGE IV (13:11)
--- NOTE | 2023-08-26 13:12 | SUR.PHASEI ---
Did pt glucose and it was 26 and repeated glucose stick and it was 26 . Called Camille Benito [facility] [employer] and gave 2 apple juices and a pack of sugar. Called lab for stat glucose and then gave pt 12.5 gms of D 50 IV. Pt denies any complaints and is asymptomatic. Camille Benito came to PACU and is watching pt. Just retook blood sugar and it is now 104.
--- NOTE | 2023-08-26 13:23 | SUR.PHASEI ---
Lab came and obtained his blood sugar.
--- NOTE | 2023-08-26 13:36 | SUR.PHASEII ---
Diet tray ordered due to hypoglycemia; at bedside.
[2023-08-26 13:39] LABS: Glucose 94 mg/dL (80-110)
--- NOTE | 2023-08-26 14:14 | SUR.PHASEII ---
Patient one half of a tuna sandwich without difficulty. Tolerated well. Will continue to evaluate blood sugar prior to discharge.
== END 2023-08-26 15:06 | disposition home or self-care (01) ==
PROVIDERS: Nurse Anesthetist, Certified Registered; PCP Family Medicine; Referring Provider Specialist; Visit Provider Specialist
PROC: 0T9B30Z Drainage of Bladder with Drainage Device, Percutaneous Approach (ICD-10-PCS; CPT 51102; principal; 2023-08-26 10:45)
DX: R33.9 Retention of urine, unspecified (principal); N40.1 Benign prostatic hyperplasia with lower urinary tract symptoms; R33.8 Other retention of urine; Q54.8 Other hypospadias; N30.80 Other cystitis without hematuria
CPT/HCPCS: 51040; 36415; 82947; 82962; C9290; J0171; J0330; J2405; J2704; J3010; J3490

== ENCOUNTER → 2023-09-26 14:21 | Outpatient (CLI) | payer MEDICARE, OTHER, SELFPAY ==
[2023-05-15 16:05] VITALS: BMI 34.9
[2023-05-15 20:39] VITALS: PULSE 79; RESP 22; O2SAT 94
== END ==
PROVIDERS: PCP Family Medicine; Visit Provider Urology
DX: N39.0 Urinary tract infection, site not specified (principal)
CPT/HCPCS: 87086

== ENCOUNTER → 2023-11-10 14:49 | Outpatient (CLI) | payer MEDICARE, OTHER, SELFPAY ==
[2023-05-15 16:05] VITALS: BMI 34.9
[2023-05-15 20:39] VITALS: PULSE 79; RESP 22; O2SAT 94
--- NOTE | 2023-11-25 11:16 | DIAB.INIT ---
Initial Diabetes Education Assessment Name: Sarbjit Mayen Date: 11/10/23 Time: 305-350a Dx: Type II Diabetes Provider: Agus Preferred Learning Style: Listening/Watching/Reading/Doing Sarbjit presents with his today for initial visit. PMH of DM x 10+ years. UTD on eye and dental. Reports PMH of glaucoma and cataracts, and significant for Parkinson's dx. Endorse FH of DM with father and sister. States he is interested in CGM. Also wants to know how to treat Dm on sick days. Anthropometrics: Ht: 66 Wt: 210# Physical Activity: None Self-Monitoring Blood Glucose: Checks BID: FBG and variable times after (pre meal or after meal in evening) FBG 90-100mg/dl after eating 150-160mg/dl pre meal 100-125mg/dl Diabetes Medications: 850mg Metformin TID 60u Glargine AM 64u Glargine PM Pertinent Labs: HgA1c: 7% 02/2023 Past Medical History: (Last Reviewed 10/28/23 @ 09:05 by Hayden Patel DO) Acne Anemia Ankle pain Benign prostatic hyperplasia Chicken pox Congestive heart failure COPD exacerbation GERD (gastroesophageal reflux disease) History of nephrolithiasis History of prostate cancer History of urinary retention Hyperlipidemia Hypertension Left nephrolithiasis Measles Parkinson's disease Prostate cancer (~2010) Recurrent UTI Shoulder pain Type 2 diabetes mellitus Urinary retention Urinary retention Intervention: This participant was very receptive. Provided appropriate educational handouts. Discussed the following topics: Completed intake assessment. Discussed barriers to care. Reviewed sick day management CGM Sample Reviewed CGM use and equipment Discussed when to check blood sugars using finger stick Reviewed high and low blood sugar signs/symptoms and treatment options Provided education for self-administration of CGM placement Educated patient on alarm settings Discussed how to remove and dispose of equipment Created SMART goals for patient self-care and success. Goals: Try CGM x 10 days Practice sick day management prn Follow-up: TUTU TELLO follow-up in 2-3 weeks Sharyn Hart RDN, OMER Certified Diabetes Care and Contract Administration Coordinator P: [phone] Thank you for this referral
== END ==
LOC: DIET 14:50
PROVIDERS: PCP Family Medicine; Referring Provider Family Medicine
DX: E11.9 Type 2 diabetes mellitus without complications (principal); Z71.3 Dietary counseling and surveillance; Z79.4 Long term (current) use of insulin; Z79.84 Long term (current) use of oral hypoglycemic drugs
CPT/HCPCS: G0108

== ENCOUNTER → 2023-12-21 16:01 | Outpatient (CLI) | payer MEDICARE, OTHER, SELFPAY ==
[2023-05-15 16:05] VITALS: BMI 34.9
[2023-05-15 20:39] VITALS: PULSE 79; RESP 22; O2SAT 94
--- NOTE | 2023-12-21 17:01 | DIAB.MNT ---
Initial Diabetes Medical Nutrition Therapy Assessment Name: Sarbjit Mayen Date: 12/21/23 Time: 415-445p Dx: Type II Diabetes Sarbjit presents with his today for initial MNT visit. PMH of DM x 10+ years. UTD on eye and dental. Reports PMH of glaucoma and cataracts, and significant for Parkinson's dx. Endorse FH of DM with father and sister. Wore CGM sample. States the [employer] called him and discussed cost. [place] he could not afford it. Seems they were trying to offer financial assistance. RD messaged [employer] for details. States he cannot remember seeing a BG result on the fireworks inspector. Did not bring fireworks inspector today. Wants to review results next visit. Reports he is not sure if he still wants a personal CGM. Ok with finger sticks per report. States he sometimes has juice with breakfast to bring BG up. May be causing elevations with cereal, unclear. Diet recall: 230-5a: 2 toast with butter OR sugar cereal x 1c with milk and 6oz juice 11a: sandwich and apple 5p: TV dinner (40g CHO) or fish sticks and fries x 1/5c 530-6p: 1c vanilla ice cream water Plan for new hgA1c in February per report Anthropometrics: Ht: 66 Wt: 2224# 12/2023 Physical Activity: None Self-Monitoring Blood Glucose: Reports no CGM currently. No results for review. Reports checking BG with fingersticks randomly with recent BG of 104, 125, with one reading just above 200mg/dl after high CHO intake. Last visit reported checking 2-3x per day: FBG 90-100mg/dl after eating 150-160mg/dl pre meal 100-125mg/dl Diabetes Medications: 850mg Metformin TID 60u Glargine AM 64u Glargine PM Pertinent Labs: HgA1c: 7% 02/2023 Past Medical History: (Last Reviewed 12/20/23 @ 14:18 by Ravindra Goldsmith DO) Acne Anemia Ankle pain Benign prostatic hyperplasia Chicken pox Congestive heart failure COPD exacerbation GERD (gastroesophageal reflux disease) History of nephrolithiasis History of prostate cancer History of urinary retention Hyperlipidemia Hypertension Left nephrolithiasis Measles Parkinson's disease Prostate cancer (~2010) Recurrent UTI Shoulder pain Type 2 diabetes mellitus Urinary retention Urinary retention Nutrition Rx: Carbohydrates: Meal:45g Snack:15-30g Nutrition Diagnosis: - Nutrition and food related knowledge deficit r/t limited MNT 10 years ago aeb pt report - Predicted excessive CHO intake r/t nutrition knowledge deficit aeb diet recall- new Intervention: This participant was very receptive. Provided appropriate educational handouts. Discussed the following topics: Carb portion recommendations Avoiding juice unless BG <70mg/dl Meal/snack timing CGM acquisition troubleshooting Created SMART goals for patient self-care and success. Goals: Try CGM x 10 days - met Practice sick day management prn- continue Bring fireworks inspector next visit- new if BG is <70 have 4oz juice- new If BG >70 avoid juice- new Try half PB sandwich and milk for breakfast - new Move ice cream to 7-730p- new Follow-up: [facility] follow-up in 3-4 weeks. JERZY messaged [employer] for details concerning CGM cost and financial assistance. Sharyn Hart RDN, OMER Certified Diabetes Care and Accounting Director P: [phone] Thank you for this referral
== END ==
PROVIDERS: PCP Family Medicine; Referring Provider Family Medicine
DX: E11.59 Type 2 diabetes mellitus with other circulatory complications (principal); G20.A1 Parkinson's disease without dyskinesia, without mention of fluctuations; E78.00 Pure hypercholesterolemia, unspecified; Z71.3 Dietary counseling and surveillance; Z79.84 Long term (current) use of oral hypoglycemic drugs; Z79.4 Long term (current) use of insulin; Z68.34 Body mass index [BMI] 34.0-34.9, adult
CPT/HCPCS: 97802

== ENCOUNTER → 2024-01-19 15:00 | Outpatient (CLI) | payer MEDICARE, OTHER, SELFPAY ==
[2023-05-15 16:05] VITALS: BMI 34.9
[2023-05-15 20:39] VITALS: PULSE 79; RESP 22; O2SAT 94
--- NOTE | 2024-02-16 17:25 | DIAB.MNTFU ---
Follow-up Diabetes Medical Nutrition Therapy Assessment Name: Sarbjit Mayen Date: 01/19/24 Time: 415-445p Dx: Type II Diabetes Sarbjit presents with his today for MNT visit. PMH of DM x 10+ years. UTD on eye and dental. Reports PMH of glaucoma and cataracts, and significant for Parkinson's dx. Endorse FH of DM with father and sister. Reports he would like to give CGM a try x 3 months[address] Today we did place a new sample CGM since the last one stopped working prior to sensor expiration. Added protein to toast . Having cereal most mornings, high CHO and low protein. Moved evening ice cream away from meal. When discussing protein options, reports no nuts at home due to family member allergy. Needing more ideas for protein. Anthropometrics: Ht: 66 Wt: 2224# 12/2023 Physical Activity: None Self-Monitoring Blood Glucose: Checking FBG daily: 103-150mg/dl. No recent lows. Diabetes Medications: 850mg Metformin TID 60u Glargine AM 64u Glargine PM Pertinent Labs: HgA1c: 7% 02/2023 Past Medical History: (Last Reviewed 12/20/23 @ 14:18 by Ravindra Goldsmith DO) Acne Anemia Ankle pain Benign prostatic hyperplasia Chicken pox Congestive heart failure COPD exacerbation GERD (gastroesophageal reflux disease) History of nephrolithiasis History of prostate cancer History of urinary retention Hyperlipidemia Hypertension Left nephrolithiasis Measles Parkinson's disease Prostate cancer (~2010) Recurrent UTI Shoulder pain Type 2 diabetes mellitus Urinary retention Urinary retention Nutrition Rx: Carbohydrates: Meal:45g Snack:15-30g Nutrition Diagnosis: - Nutrition and food related knowledge deficit r/t limited MNT 10 years ago aeb pt report- in progress - Predicted excessive CHO intake r/t nutrition knowledge deficit aeb diet recall- in progress Intervention: This participant was very receptive. Provided appropriate educational handouts. Discussed the following topics: Sample CGM education Impact of cereal on BG and lack of pro Protein ideas Created SMART goals for patient self-care and success. Goals: Bring speech language pathology assistant next visit- met if BG is <70 have 4oz juice- met If BG >70 avoid juice- met Try half PB sandwich and milk for breakfast - d/c Move ice cream to 7-730p- met Reduce cereal freq to 2-3x per week - new Try CGM x 10.5 days- new Add protein to breakfast- new Follow-up: [facility] follow-up in 2-3 weeks Sharyn Hart RDN, OMER Certified Diabetes Care and Solutions Delivery Consultant P: [phone] Thank you for this referral
== END ==
PROVIDERS: PCP Family Medicine; Referring Provider Family Medicine
DX: E11.9 Type 2 diabetes mellitus without complications (principal); G20.A1 Parkinson's disease without dyskinesia, without mention of fluctuations; Z83.3 Family history of diabetes mellitus; Z79.84 Long term (current) use of oral hypoglycemic drugs; Z79.4 Long term (current) use of insulin; Z71.3 Dietary counseling and surveillance
CPT/HCPCS: 97803

== ENCOUNTER → 2024-02-16 11:03 | Outpatient (CLI) | payer MEDICARE, OTHER, SELFPAY ==
[2023-05-15 16:05] VITALS: BMI 34.9
[2023-05-15 20:39] VITALS: PULSE 79; RESP 22; O2SAT 94
--- NOTE | 2024-03-23 16:33 | DIAB.FU ---
Personal CGM Placement/Education Name: Sarbjit Mayen Date: 02/16/24 Time: 1110-12 Dx: Type II Diabetes Sarbjit presents with his today for MNT visit. PMH of DM x 10+ years. UTD on eye and dental. Reports PMH of glaucoma and cataracts, and significant for Parkinson's dx. Endorse FH of DM with father and sister. Brought personal CGM for placement and education. wants education on how to place. Recent low BG, s/s pale, weak, no energy, BG <70mg/dl, sometimes <55mg/dl. Likely needs reduction in basal insulin. Lows often occur between 12a-6a. Needs a new meter per report. RD messaged PCP team about this. Anthropometrics: Ht: 66 Wt: 2224# 12/2023 Self-Monitoring Blood Glucose: Brought CGM. TIR: 0% very high 9% high 80% inrange 9% low 2% very low avmg/dl GMI: 6.3% std dev: 41mg/dl Diabetes Medications: 850mg Metformin TID 60u Glargine AM 64u Glargine PM Pertinent Labs: HgA1c: 7% 02/2023 Past Medical History: (Last Reviewed 12/20/23 @ 14:18 by Ravindra Goldsmith DO) Acne Anemia Ankle pain Benign prostatic hyperplasia Chicken pox Congestive heart failure COPD exacerbation GERD (gastroesophageal reflux disease) History of nephrolithiasis History of prostate cancer History of urinary retention Hyperlipidemia Hypertension Left nephrolithiasis Measles Parkinson's disease Prostate cancer (~2010) Recurrent UTI Shoulder pain Type 2 diabetes mellitus Urinary retention Urinary retention Intervention: This participant was very receptive. Provided appropriate educational handouts. Discussed the following topics: Instructed on CGM placement and education on use Encouraged reduced basal insulin by 20% Rule of 15 for lows review Created SMART goals for patient self-care and success. 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
== END ==
PROVIDERS: PCP Family Medicine; Referring Provider Family Medicine
DX: E11.9 Type 2 diabetes mellitus without complications (principal); Z83.3 Family history of diabetes mellitus; G20.A1 Parkinson's disease without dyskinesia, without mention of fluctuations; H40.9 Unspecified glaucoma; Z79.84 Long term (current) use of oral hypoglycemic drugs; Z79.4 Long term (current) use of insulin
CPT/HCPCS: 95249

== ENCOUNTER 2024-03-01 13:11 | Emergency (ER) | payer MEDICARE, OTHER, SELFPAY ==
[2023-05-15 16:05] VITALS: BMI 34.9
[2023-05-15 20:39] VITALS: PULSE 79; RESP 22; O2SAT 94
[2024-03-01] VITALS (15 sets, daily range): BP systolic 124–197; BP diastolic 68–104; PULSE 79–82; RESP 18–63; TEMP 36.5; O2SAT 79–100; BMI 35.0
--- NOTE | 2024-03-01 13:13 | ED_ITS ---
HPI - Weakness General Chief complaint: Weakness Stated complaint: Increasing weakness 2 weeks Time Seen by Provider: 03/01/24 13:13 History of Present Illness HPI Narrative: 73-year-old male history of hyperlipidemia, hypertension, diabetes, Parkinson's, CHF, comes into the ED via EMS from home for evaluation of generalized weakness ongoing persistent for the past 2 weeks. According to the patient he has been feeling weak over the past 2 weeks but denies any other symptoms such as headache visual disturbances chest pain shortness breath fever chills nausea vomiting abdominal pain or any other GI/ symptoms time. Does have a chronic indwelling Churchill secondary to his history of Parkinson's, he states that this is supposed to be changed every month was last changed approximately 3 weeks ago. According to medics who brought patient in his home health nurse was also stating that over the past few days he seemed a little bit more ?confused but according to medics being nurse states that patient is at his baseline currently. Does require a walker at baseline due to history of Parkinson's. Not on any blood thinners Related Data Home Medications Medication Instructions Recorded Confirmed latanoprost 0.005 % eye drops 1 drp DAILY 06/02/22 12/20/23 timolol maleate 0.5 % eye drops 1 drp ophthalmic (eye) DAILY 06/02/22 12/20/23 aspirin 81 mg tablet,delayed 81 mg PO DAILY 10/21/22 12/20/23 release (Adult Low Dose Aspirin) acetaminophen 500 mg tablet 500 mg PO Q6H PRN Pain (Scale 04/03/23 12/20/23 (Acetaminophen Extra Strength) Score 4-6) carbidopa 25 mg-levodopa 100 mg See Rx Instructions .Route .COMPLEX 04/03/23 12/20/23 tablet carbidopa ER 25 mg-levodopa 100 mg 1 tab PO BID 04/03/23 12/20/23 tablet,extended release cranberry 400 mg capsule 400 mg PO DAILY 04/03/23 12/20/23 entacapone 200 mg tablet 100 mg PO 5XD 05/18/23 12/20/23 Previous Rx's Medication Instructions Recorded fosfomycin tromethamine 3 gram 1 packet PO .COMPLEX #10 ea 06/24/23 oral packet lidocaine HCl 2 % mucosal solution 1 applic mucous membrane BID-TID 07/27/23 (Lidocaine Viscous) PRN pain #100 mL losartan 50 mg tablet 50 mg PO BID #180 tabs 08/22/23 metformin 850 mg tablet 850 mg PO TID #240 tabs 08/22/23 ipratropium 0.5 mg-albuterol 3 mg 3 ml inhalation Q4-6H PRN 09/23/23 (2.5 mg base)/3 mL nebulization shortness of breath or wheezing soln #90 mL pen needle, diabetic 32 gauge x #100 ea 09/23/23 (BD Reshma 2nd Gen Pen Needle) atorvastatin 10 mg tablet 10 mg PO DAILY #90 tabs 11/09/23 finasteride 5 mg tablet (Proscar) 5 mg PO DAILY #10 tabs 12/01/23 albuterol sulfate 90 mcg/actuation 1 puff inhalation Q4-6H #8.5 grams 12/27/23 aerosol inhaler fluticasone propionate 115 2 puff inhalation BID #12 grams 01/02/24 mcg-salmeterol 21 mcg/actuation HFA inhaler (Advair HFA) insulin glargine 100 unit/mL (3 See Rx Instructions .Route 01/30/24 mL) subcutaneous pen (Lantus .COMPLEX #15 mL Solostar U-100 Insulin) omeprazole 20 mg capsule,delayed 20 mg PO DAILY #90 caps 01/30/24 release blood sugar diagnostic (Blood #50 ea 02/16/24 Glucose Test strips) blood-glucose meter #1 ea 02/16/24 lancets 31 gauge (Comfort Touch #100 ea 02/16/24 Ultra Thin Lancets) gabapentin 100 mg capsule 100 mg PO 3XD #270 caps 02/20/24 potassium citrate 10 mEq (1,080 10 meq PO BID #180 tabs 02/20/24 mg) tablet,extended release tamsulosin 0.4 mg capsule 0.8 mg (2 x 0.4 mg) PO DAILY #180 02/20/24 caps cefpodoxime 200 mg tablet 200 mg PO BID 10 days #20 tabs 03/01/24 Allergies Allergy/AdvReac Type Severity Reaction Status Date / Time No Known Drug Allergies Allergy Verified 12/20/23 13:39 Review of Systems Review of Systems Narrative: General: Positive generalized weakness, Denies fever, chills, weight loss HEENT: Denies headache, eye drainage, eye irritation, head trauma, sore throat, voice change Cardiovascular: Denies any chest pain, palpitations, shortness of breath, tachycardia Respiratory: Denies any shortness of breath, cough, wheeze, stridor GI/: Denies any abdominal pain, nausea, vomiting, diarrhea, bright red blood per rectum, melanotic stools, urinary frequency, urinary retention, dysuria, hematuria MSK: Denies any joint pain, muscle pains, swelling Skin: Denies any rashes, lesions, discoloration Neuro: Denies any headache, lightheadedness, dizziness, fainting, weakness Psych: Denies SI/HI Patient History Medical History Urinary retention COPD exacerbation History of urinary retention Hyperlipidemia History of nephrolithiasis Left nephrolithiasis Urinary retention Recurrent UTI History of prostate cancer Acne Shoulder pain Ankle pain Measles Chicken pox Prostate cancer (~2010) Anemia Benign prostatic hyperplasia GERD (gastroesophageal reflux disease) Hypertension Type 2 diabetes mellitus Parkinson's disease Congestive heart failure Surgical History S/P deep brain stimulator placement (11/2019) History of prostate biopsy Anesthesia History of knee surgery Kidney stones Family History Father Stroke Hypertension Bacterial UTI Mother Cancer Sister Hypertension Aunt Diabetes mellitus Uncle Kidney stones Social History marital status: number of children: 3 household members: spouse and family Smoking Status: Former smoker alcohol intake: never Type(s) of exercise: walking frequency: 1-2 times per week Smoking Status: Former smoker tobacco type: cigarettes alcohol intake frequency: holidays/special occasions only Exam Narrative Exam Narrative: General: Cooperative, comfortable, well-developed, not in acute distress HEENT: Normocephalic, atraumatic, PERRLA, normal sclera, eyelids normal, Neck: Active full range of motion, atraumatic Chest: Normal to inspection, negative crepitus, no overlying erythema ecchymosis Respiratory: Normal respiratory effort, not in acute respiratory distress, clear to auscultation bilaterally negative cough, wheeze, tachypnea, rhonchi, rales Cardiology: Regular rate rhythm negative gallop, murmur, rubs GI/: Normal to inspection, soft, nonrigid, no tenderness to palpation, exam deferred MSK: Full range of active range of motion of all 4 extremities, atraumatic Skin: No rashes lesions noted Neuro: Patient with spasticity to bilateral upper and lower extremities this is baseline due to his history of Parkinson's, NIH of 0 Alert awake oriented x3, moves all 4 extremities spontaneously, cranial nerves intact, able to answer all questions appropriately follows commands appropriately Psych: Cooperative, negative suicidal or homicidal ideations Initial Vital Signs Initial Vital Signs: Vital Signs Pulse Rate 81 03/01/24 13:21 Respiratory Rate 44 H 03/01/24 13:21 Pulse Oximetry 97 03/01/24 13:21 Course Orders Ordered: ED Orders 03/01/24 13:05 Complete Blood Count AUTO DIFF Stat Comprehensive Metabolic Panel Stat Lipase Stat MAG [Magnesium] Stat Troponin & CK Cardiac Panel Stat 03/01/24 13:17 CT head/brain wo con Stat XR chest 1V Stat EKG-12 Lead Stat 03/01/24 13:48 Covid-19 + FLU A/B + RSV - PCR Stat 03/01/24 14:13 Urinalysis and Microscopic Stat Urine Culture Stat Discontinued Medications Ceftriaxone Sodium 1,000 mg/ (Sodium Chloride) 100 mls @ 200 mls/hr IV NOW ONE Stop: 03/01/24 14:53 Last Infusion: 03/01/24 15:45 Dose: Infused Documented By: Admin: 03/01/24 15:10 Dose: 200 mls/hr Documented By: MAGDA Vital Signs Vital signs: Vital Signs - 8 hr 03/01/24 13:21 03/01/24 13:24 03/01/24 13:24 Temperature Pulse Rate 81 80 Respiratory Rate 44 H 44 H Blood Pressure 139/83 Pulse Oximetry 97 100 Oxygen Delivery Method 03/01/24 13:26 03/01/24 13:30 03/01/24 13:32 Temperature 97.7 F Pulse Rate 81 80 80 Respiratory Rate 18 42 H 62 H Blood Pressure 139/83 Pulse Oximetry 99 99 100 Oxygen Delivery Method Room Air 03/01/24 13:36 03/01/24 13:38 03/01/24 13:38 Temperature Pulse Rate 80 80 Respiratory Rate 43 H 63 H Blood Pressure 197/84 H Pulse Oximetry 92 99 Oxygen Delivery Method 03/01/24 13:42 03/01/24 13:42 03/01/24 13:51 Temperature Pulse Rate 80 80 Respiratory Rate 58 H 47 H Blood Pressure 170/104 H Pulse Oximetry 99 79 L Oxygen Delivery Method 03/01/24 13:51 03/01/24 13:53 03/01/24 13:53 Temperature Pulse Rate 82 Respiratory Rate 53 H Blood Pressure 124/68 134/79 Pulse Oximetry 83 L Oxygen Delivery Method 03/01/24 14:00 03/01/24 14:00 03/01/24 14:30 Temperature Pulse Rate 79 80 Respiratory Rate 35 H 47 H Blood Pressure 153/82 H Pulse Oximetry Oxygen Delivery Method 03/01/24 14:30 Temperature Pulse Rate Respiratory Rate Blood Pressure 191/88 H Pulse Oximetry Oxygen Delivery Method MDM - Weakness Differential Diagnosis Differential diagnosis: Likely other (CVA, electrolyte abnormality, urinary tract infection) Lab Data 03/01/24 13:05 03/01/24 13:05 Labs: Lab Results 03/01/24 03/01/24 03/01/24 Range/Units 13:05 13:48 14:13 WBC 10.6 (4.5-11.0) X10^3/uL RBC 4.75 (4.5-5.9) X10^6/uL Hgb 13.5 (13.5-17.5) g/dL Hct 40.3 L (41-53) % MCV 84.7 (80-100) fL MCH 28.4 (26-34) PG MCHC 33.5 (30-36) % RDW 16.3 H (11.6-14.8) % Plt Count 243 (150-400) X10^3/uL Neut % (Auto) 77.6 H (50-75) % Lymph % (Auto) 14.8 L (25-40) % [place] % (Auto) 5.9 (3-14) % Eos % (Auto) 1.2 L (2-4) % Baso % (Auto) 0.5 (0-2) % Neut # (Auto) 8300 H (2424-3989) /uL Lymph # (Auto) 1600 (6234-3448) /uL [place] # (Auto) 600 (0-900) /uL Eos # (Auto) 100 (0-450) /uL Baso # (Auto) 100 (0-100) /uL Sodium 134 L (137-145) mmol/L Potassium 4.4 (3.4-5.1) mmol/L Chloride 104 (98-107) mmol/L Carbon Dioxide 20 L (22-32) mmol/L BUN 22 H (9-20) mg/dL Creatinine 0.96 (0.66-1.25) mg/dL Estimated GFR > 60 (>60) mL/min BUN/Creatinine Ratio 22.9 H (6-22) Glucose 274 H (80-110) mg/dL Calcium 10.0 (8.4-10.2) mg/dL Magnesium 1.7 (1.6-2.3) mg/dL Total Bilirubin 0.6 (0.2-1.3) mg/dL AST 31 (17-59) IU/L ALT 22 (<50) IU/L Alkaline Phosphatase 84 (38-126) U/L Total Creatine Kinase 94 (55-170) U/L Troponin I < 0.012 (0.01-0.034) ng/mL Total Protein 7.8 (6.3-8.2) g/dL Albumin 4.5 (3.5-5.0) g/dL Globulin 3.3 (1.7-4.1) g/dL Albumin/Globulin Ratio 1.4 (1.0-2.8) Lipase 93 (23-300) U/L Urine Color Yellow Urine Appearance Cloudy Urine pH 6.0 (4.5-8.0) Ur Specific [place] 1.010 (1.000-1.035) Urine Protein 1+ H (Negative) Urine Glucose (UA) 2+ H (Negative) g/dL Urine Ketones Negative (NEGATIVE) Urine Occult Blood 3+ H (Negative) Urine Nitrate Negative (Negative) Urine Bilirubin Negative (NEGATIVE) Urine Urobilinogen 0.2 (0.2) E.U./dL Ur Leukocyte Esterase 3+ H (NEGATIVE) Urine RBC 10-30/hpf H (0-5/HPF) Urine WBC 30-100/hpf H (0-5/HPF) Ur Squamous Epith Cells 0-1 /hpf (0-5/HPF) Urine Bacteria Many (>30) H (None) Ur Culture Indicated? Specimen cultured Vol Urine Centrifuged 10ml (spun) SARS-CoV-2 (PCR) Negative (Negative) Influenza A (RT-PCR) Flu a negative (NEGATIVE) Influenza B (RT-PCR) Flu b negative (NEGATIVE) RSV (PCR) Negative (Negative) Imaging Data Chest x-ray: Radiologist Impression: [address] [id number] XRay Report Signed Patient: Sarbjit Mayen MR#: [id number] : 1950 Acct:[id number] Age/Sex: 73 / M Date of Service: 03/01/24 Loc: ED Accession Number: [id number] Procedure: XR chest 1V Ordering Provider: Chandrakant Malik D.O. PROCEDURE: XR CHEST 1V INDICATIONS: weakness TECHNIQUE: One view of the chest was acquired. COMPARISON: [facility], CR, XR CHEST 1V, 07/15/2023, 21:57. [facility], , XR CHEST 1V, 06/14/2023, 21:54. FINDINGS: Surgical changes and devices: Right chest wall generator Lungs and pleura: Lungs are clear. No pleural effusions or pneumothorax. Mediastinum: Mediastinal contours appear normal. Heart size is normal. Bones and chest wall: No suspicious bony lesions. Overlying soft tissues appear unremarkable. IMPRESSION: No acute cardiopulmonary abnormality is seen. CT scan - head: Radiologist Impression: [address] [address] [address] Scan Report Signed Patient: Sarbjit Mayen MR#: [id number] : 1950 Acct:[id number] Age/Sex: 73 / M Date of Service: 03/01/24 Loc: ED Accession Number: [id number] Procedure: CT head/brain wo con Ordering Provider: Chandrakant Malik D.O. PROCEDURE: CT HEAD/BRAIN WO CON INDICATIONS: weakness /ams TECHNIQUE: Noncontrast 4.5 mm thick angled axial sections acquired from the foramen magnum to the vertex, with coronal and sagittal reformats. For radiation dose reduction, the following was used: automated exposure control, adjustment of mA and/or kV according to patient size. COMPARISON: [facility], CT, CT HEAD WITHOUT CONTRAST, 04/24/2023, 3:28. FINDINGS: Image quality: Diagnostic. CSF spaces: Basal cisterns are patent. No extra-axial fluid collections. The ventricles are symmetric in size and shape. Brain: No intracranial bleeds or masses. There is moderate cerebral volume loss for age, with resultant ventricular and sulcal prominence. There are moderate periventricular and deep white matter chronic small vessel ischemic changes. There is intracranial internal carotid artery atherosclerosis. Redemonstration of deep brain stimulator lead terminating near the right thalamus from a right frontal approach. Skull and face: Calvarium and visualized facial bones appear intact, without suspicious lesions. Sinuses: Mild right and minimal left mucosal thickening of the bilateral maxillary sinuses. Remainder of the paranasal sinuses appear clear. Mastoid air cells are well-aerated. IMPRESSION: 1. CT head without acute intracranial abnormalities or acute calvarial fractures. 2. Age-related senescent changes and sequela of chronic small vessel ischemic disease. 3. Minimal bilateral maxillary sinus disease. ECG Data Interpretation: EKG interpreted by ED physician sinus 80 beats per minute QTC 447, left axis deviation, nonspecific ST changes, no STEMI MDM Narrative Medical decision making narrative: 73-year-old male with history of diabetes hypertension Parkinson's, chronic indwelling suprapubic catheter comes into the ED from home via EMS for evaluation generalized weakness ongoing persistent for the past 2 weeks, according to medics patient has been complaining of increased weakness over the past 2 weeks does use a walker at baseline. States that he has not complaining of any other symptoms. According to EMS there was also concern that he might be more confused according to his home health nurse, states that this has been intermittent in nature but is not having any confusion at this time. Initial evaluation with patient NIH of 0. I personally change patient's suprapubic catheter 20 Vietnamese. Patient lab work unremarkable, urinalysis consistent with an acute urinary tract infection 1st dose of antibiotics was administered here patient will be sent home with prescription, strict return precautions given they verbalized understanding of this and agrees to being discharged home with outpatient follow up Discharge Plan Departure Patient Disposition: Home Clinical Impression: Urinary tract infection Instructions: How to Care for Your Churchill Catheter -- Male, DI for Urinary Tract Infection (UTI) Activity Restrictions/Additional Instructions: Please read the discharge instructions sheet carefully and bring all papers to all doctor follow-up visits, as it may contain information that your doctor may want to see. Disease processes change and evolve, if your symptoms worsen or if you develop any new symptoms that are concerning to you please return for evaluation. Your evaluation today does not show any evidence of any life- threatening/serious illnesses requiring admission to the hospital or surgery. Please follow-up with your doctor for re-evaluation in approximately 1 day. Seek immediate medical attention for any worrisome symptoms. *If you do not have a primary care provider please contact the [facility] Resource line at [phone]. They will ask some questions about your medical history and help get you set up with a doctor in the community. Prescriptions: New cefpodoxime 200 mg tablet 200 mg PO BID 10 Days Qty: 20 0RF Rx Instructions: must administer with a meal/food No Action fosfomycin tromethamine 3 gram packet 1 packet PO .COMPLEX Qty: 10 0RF Rx Instructions: 1 packet orally once every 10 days for 3 months atorvastatin 10 mg tablet 10 mg PO DAILY Qty: 90 3RF finasteride [Proscar] 5 mg tablet 5 mg PO DAILY Qty: 10 0RF Rx Instructions: short term for mail in albuterol sulfate 90 mcg/actuation HFA aerosol inhaler 1 puff inhalation Q4-6H Qty: 8.5 6RF fluticasone propion-salmeterol [Advair HFA] 115-21 mcg/actuation HFA aerosol inhaler 2 puff inhalation BID Qty: 12 3RF Rx Instructions: to pair with albuterol insulin glargine [Lantus Solostar U-100 Insulin] 100 unit/mL (3 mL) insulin pen See Rx Instructions .ROUTE .COMPLEX Qty: 15 3RF Rx Instructions: 60 in morning, 64 units at bedtime omeprazole 20 mg capsule,delayed release(DR/EC) 20 mg PO DAILY Qty: 90 1RF (DME) Comfort Touch Ult Thin Lancets 31 gauge misc See Rx Instructions .Route Qty: 100 2RF Rx Instructions: use to check blood sugars 1-2 times per day (DME) Blood Glucose Test Strip See Rx Instructions .Route Qty: 50 5RF Rx Instructions: use to check blood sugars 1-2 times per day (DME) blood-glucose meter Misc See Rx Instructions .Route Qty: 1 0RF Rx Instructions: use to check blood sugars 1-2 times per day tamsulosin 0.4 mg capsule 0.8 mg PO DAILY Qty: 180 3RF gabapentin 100 mg capsule 100 mg PO 3XD Qty: 270 1RF potassium citrate 10 mEq (1,080 mg) tablet extended release 10 meq PO BID Qty: 180 1RF ipratropium-albuterol 0.5 mg-3 mg(2.5 mg base)/3 mL solution for nebulization 3 ml inhalation Q4-6H PRN (Reason: shortness of breath or wheezing) Qty: 90 8RF (DME) pen needle, diabetic [BD Reshma 2nd Gen Pen Needle] 32 gauge x 5/32 needle See Rx Instructions .ROUTE .MEDSUPPLY Qty: 100 3RF Rx Instructions: use to inject insulin BID losartan 50 mg tablet 50 mg PO BID Qty: 180 3RF metformin 850 mg tablet 850 mg PO TID Qty: 240 3RF aspirin [Adult Low Dose Aspirin] 81 mg tablet,delayed release (DR/EC) 81 mg PO DAILY timolol maleate 0.5 % drops 1 drp ophthalmic (eye) DAILY latanoprost 0.005 % drops 1 drp DAILY carbidopa-levodopa 25-100 mg tablet extended release 1 tab PO BID acetaminophen [Acetaminophen Extra Strength] 500 mg Tablet 500 mg PO Q6H PRN (Reason: Pain (Scale Score 4-6)) cranberry 400 mg Capsule 400 mg PO DAILY Rx Instructions: administer with a meal carbidopa-levodopa 25-100 mg tablet See Rx Instructions .ROUTE .COMPLEX Patient Comments: extended release Rx Instructions: take 3 tabs at 0600, 2.5 tabs at 1000, 3 tabs at 1400, 2.5 tabs at 1800, 2.5 tabs at 2200 entacapone 200 mg Tablet 100 mg PO 5XD lidocaine HCl [Lidocaine Viscous] 2 % solution 1 applic mucous membrane BID-TID PRN (Reason: pain) Qty: 100 0RF Referrals: Ravindra Goldsmith DO [Primary Care Provider] - Stand Alone Forms: Patient Portal/API/Survey
--- NOTE | 2024-03-01 13:17 | DI.RAD.S_ITS ---
PROCEDURE: XR CHEST 1V INDICATIONS: weakness TECHNIQUE: One view of the chest was acquired. COMPARISON: [facility], CR, XR CHEST 1V, 07/15/2023, 21:57. [facility], CR, XR CHEST 1V, 06/14/2023, 21:54. FINDINGS: Surgical changes and devices: Right chest wall generator Lungs and pleura: Lungs are clear. No pleural effusions or pneumothorax. Mediastinum: Mediastinal contours appear normal. Heart size is normal. Bones and chest wall: No suspicious bony lesions. Overlying soft tissues appear unremarkable. IMPRESSION: No acute cardiopulmonary abnormality is seen. Dictated by: Jama Pierson M.D. on 03/01/2024 at 13:50 Approved by: Jama Pierson M.D. on 03/01/2024 at 13:51
--- NOTE | 2024-03-01 13:17 | DI.CT.S_ITS ---
PROCEDURE: CT HEAD/BRAIN WO CON INDICATIONS: weakness /ams TECHNIQUE: Noncontrast 4.5 mm thick angled axial sections acquired from the foramen magnum to the vertex, with coronal and sagittal reformats. For radiation dose reduction, the following was used: automated exposure control, adjustment of mA and/or kV according to patient size. COMPARISON: [facility], CT, CT HEAD WITHOUT CONTRAST, 04/24/2023, 3:28. FINDINGS: Image quality: Diagnostic. CSF spaces: Basal cisterns are patent. No extra-axial fluid collections. The ventricles are symmetric in size and shape. Brain: No intracranial bleeds or masses. There is moderate cerebral volume loss for age, with resultant ventricular and sulcal prominence. There are moderate periventricular and deep white matter chronic small vessel ischemic changes. There is intracranial internal carotid artery atherosclerosis. Redemonstration of deep brain stimulator lead terminating near the right thalamus from a right frontal approach. Skull and face: Calvarium and visualized facial bones appear intact, without suspicious lesions. Sinuses: Mild right and minimal left mucosal thickening of the bilateral maxillary sinuses. Remainder of the paranasal sinuses appear clear. Mastoid air cells are well-aerated. IMPRESSION: 1. CT head without acute intracranial abnormalities or acute calvarial fractures. 2. Age-related senescent changes and sequela of chronic small vessel ischemic disease. 3. Minimal bilateral maxillary sinus disease. Dictated by: Thaddeus Ramsay M.D. on 03/01/2024 at 15:17 Approved by: Thaddeus Ramsay M.D. on 03/01/2024 at 15:20
--- NOTE | 2024-03-01 13:17 | EKG_ITS ---
[facility] [address] [place] [address] Test Date: 2024-03-01 Pat Name: Sarbjit Mayen Department: [facility] Room: Gender: Male [employer] [place] Evaluator: LUIS ENRIQUE : 1950 Requested By: Order Number: [id number] Reading MD: Andres Granado Measurements Intervals [place] Rate: 80 P: [place]: 152 QRS: -33 QRSD: 84 T: 79 QT: 388 QTc: 447 Interpretive Statements Normal sinus rhythm Left axis deviation Left ventricular hypertrophy with repolarization abnormality ( R in aVL ) Electronically Signed On 03-01-2024 18:01:46 PST by Andres Granado
[2024-03-01 13:26] LABS: Add Manual Diff / Slide Review NO; Basophils Absolute Auto 100 /uL (0-100); Basophils Percent Auto 0.5 % (0-2); Eosinophils Absolute Auto 100 /uL (0-450); Eosinophils Percent Auto 1.2 % (2-4); Hematocrit 40.3 % (41-53); Hemoglobin 13.5 g/dL (13.5-17.5); Lymphocytes Absolute Auto 1600 /uL (1100-4500); Lymphocytes Percent Auto 14.8 % (25-40); Mean Corpuscular HGB Conc 33.5 % (30-36); Mean Corpuscular Hemoglobin 28.4 PG (26-34); Mean Corpuscular Volume 84.7 fL (80-100); Monocytes Absolute Auto 600 /uL (0-900); Monocytes Percent Auto 5.9 % (3-14); Neutrophils Absolute Auto 8300 /uL (1500-7000); Neutrophils Percent Auto 77.6 % (50-75); Platelet Count 243 X10^3/uL (150-400); Red Blood Cell Count 4.75 X10^6/uL (4.5-5.9); Red Cell Distribution Width 16.3 % (11.6-14.8); White Blood Cell Count 10.6 X10^3/uL (4.5-11.0)
[2024-03-01 13:48] LABS: Alanine Aminotransferase 22 IU/L (<50); Albumin 4.5 g/dL (3.5-5.0); Albumin Globulin Ratio 1.4 (1.0-2.8); Alkaline Phosphatase 84 U/L (38-126); Aspartate Aminotransferase 31 IU/L (17-59); BUN Creatinine Ratio 22.9 (6-22); Bilirubin Total 0.6 mg/dL (0.2-1.3); Blood Urea Nitrogen 22 mg/dL (9-20); Carbon Dioxide 20 mmol/L (22-32); Chloride 104 mmol/L (98-107); Creatine Kinase 94 U/L (55-170); Estimated Glomerular Filt Rate > 60 mL/min (>60); Globulin 3.3 g/dL (1.7-4.1); Glucose 274 mg/dL (80-110); HEMOLYSIS < 15 (0-50); Lipase 93 U/L (23-300); Magnesium 1.7 mg/dL (1.6-2.3); Potassium 4.4 mmol/L (3.4-5.1); Sodium 134 mmol/L (137-145); Total Protein 7.8 g/dL (6.3-8.2)
[2024-03-01 14:00] LABS: Troponin I < 0.012 ng/mL (0.01-0.034)
--- NOTE | 2024-03-01 14:19 | PC.NURSE ---
Physician changed 20g suprapubic cath. Pt tolerated well.
--- NOTE | 2024-03-01 14:23 | PC.NURSE ---
Pt arrived to ED via EMS due to increasing generalized weakness at home. According to pt he has been feeling quite weak over the last 2 weeks. Pt has suprapubic cath and states that it is changed once a month. Home health RN stated to and EMS that pt has been more confused today. Urine dark & cloudy. Physician to change suprapubic with RN at bedside.
[2024-03-01 14:27] LABS: Appearance Urine UA CLOUDY; Bilirubin Urine UA NEGATIVE (NEGATIVE); Color Urine UA YELLOW; Glucose Urine UA 2+ g/dL (Negative); Ketones Urine UA NEGATIVE (NEGATIVE); Leukocyte Esterase Urine UA 3+ (NEGATIVE); Nitrite Urine UA NEGATIVE (Negative); Occult Blood Urine UA 3+ (Negative); Protein Urine UA 1+ (Negative); Urobilinogen Urine UA 0.2 E.U./dL (0.2)
[2024-03-01 14:33] LABS: Influenza A - CEPHEID Flu A NEGATIVE (NEGATIVE); Influenza B - CEPHEID Flu B NEGATIVE (NEGATIVE); Respiratory Syncytial Virus Negative (Negative)
[2024-03-01 14:35] LABS: COVID-19 CEPHEID 4-PLEX PCR Negative (Negative)
[2024-03-01 14:37] LABS: Bacteria Urine Many (>30); Culture Indicated Urine Specimen Cultured; RBC Urine 10-30/HPF (0-5/HPF); Squamous Epithelial Cell Urine 0-1 /HPF (0-5/HPF); Urine Volume 10mL (spun); WBC Urine 30-100/HPF (0-5/HPF)
[2024-03-01] MEDS: cefTRIAXone 1,000 MG in SODIUM CHLORIDE 0.9% 100 ML 200 MG IV (15:10)
== END 2024-03-01 15:53 | disposition home or self-care (01) ==
PROVIDERS: Emergency Provider Student in an Organized Health Care Education/Training Program; PCP Family Medicine
DX: N39.0 Urinary tract infection, site not specified (principal); E78.5 Hyperlipidemia, unspecified; I10 Essential (primary) hypertension; E11.9 Type 2 diabetes mellitus without complications; Z79.4 Long term (current) use of insulin; Z86.79 Personal history of other diseases of the circulatory system; G20.A1 Parkinson's disease without dyskinesia, without mention of fluctuations; Z96.0 Presence of urogenital implants; R53.1 Weakness
CPT/HCPCS: 0241U; 70450; 71045; 80053; 81001; 82550; 83690; 83735; 84484; 85025; 87077; 87086; 87186; 93005; 96365; 99284; J0696

== ENCOUNTER → 2024-03-15 10:54 | Outpatient (CLI) | payer MEDICARE, OTHER, SELFPAY ==
[2023-05-15 16:05] VITALS: BMI 34.9
[2023-05-15 20:39] VITALS: PULSE 79; RESP 22; O2SAT 94
[2024-03-15 20:34] LABS: Appearance Urine UA CLEAR; Bilirubin Urine UA NEGATIVE (NEGATIVE); Color Urine UA YELLOW; Glucose Urine UA 1+ g/dL (Negative); Ketones Urine UA NEGATIVE (NEGATIVE); Leukocyte Esterase Urine UA 2+ (NEGATIVE); Nitrite Urine UA NEGATIVE (Negative); Occult Blood Urine UA 3+ (Negative); Protein Urine UA NEGATIVE (Negative); Specific Gravity Urine UA <=1.005 (1.000-1.035); Urobilinogen Urine UA 0.2 E.U./dL (0.2)
[2024-03-15 20:39] LABS: Bacteria Urine Moderate (10-30); Culture Indicated Urine Specimen Cultured; RBC Urine 5-10/HPF (0-5/HPF); Squamous Epithelial Cell Urine 1-5 /HPF (0-5/HPF); Urine Volume 10mL (spun); WBC Urine 10-30/HPF (0-5/HPF)
== END ==
PROVIDERS: PCP Family Medicine; Visit Provider Urology
DX: N30.01 Acute cystitis with hematuria (principal)
CPT/HCPCS: 81001; 87077; 87086; 87186

== ENCOUNTER 2024-04-07 19:04 | Emergency (ER) | payer MEDICARE, OTHER, SELFPAY ==
[2023-05-15 16:05] VITALS: BMI 34.9
[2023-05-15 20:39] VITALS: PULSE 79; RESP 22; O2SAT 94
[2024-04-07] VITALS (10 sets, daily range): BP systolic 130–173; BP diastolic 61–80; PULSE 74–80; RESP 4–25; TEMP 36.9–37.3; O2SAT 96–98; BMI 35.3
--- NOTE | 2024-04-07 19:16 | EKG_ITS ---
[facility] [address] [place] [address] Test Date: 2024-04-07 Pat Name: Sarbjit Mayen Department: [facility] Room: Gender: Male Branch Library Clerk: SYL : 1950 Requested By: Order Number: [id number] Reading MD: Chandrakant Yanez Measurements Intervals Champion Rate: 77 P: VT: 152 QRS: -35 QRSD: 82 T: 11 QT: 384 QTc: 434 Interpretive Statements Normal sinus rhythm Left axis deviation Left ventricular hypertrophy with repolarization abnormality ( R in aVL ) Electronically Signed On 04-08-2024 18:57:47 PST by Chandrakant Yanez
--- NOTE | 2024-04-07 20:08 | DI.RAD.S_ITS ---
PROCEDURE: XR CHEST 1V INDICATIONS: weakness TECHNIQUE: One view of the chest was acquired. COMPARISON: [facility], CR, XR CHEST 1V, 07/15/2023, 21:57. [facility], CR, XR CHEST 1V, 03/01/2024, 13:20. FINDINGS: Surgical changes and devices: There is a right-sided neural stimulator. Lungs and pleura: An incomplete inspiratory result is noted, causing a crowded appearance to the lung markings. No focal infiltrates are seen. No pneumothorax or significant pleural effusions are seen. Mediastinum: The cardiac contours are within normal limits. The aorta demonstrates calcification and tortuosity. Bones and chest wall: No suspicious bony lesions. Age-appropriate bony degenerative changes are seen. Overlying soft tissues appear unremarkable. IMPRESSION: Low lung volumes, without an acute abnormality seen by plain film. Postoperative and degenerative changes are seen. Dictated by: Benji Morris M.D. on 04/07/2024 at 19:31 Approved by: Benji Morris M.D. on 04/07/2024 at 19:31
--- NOTE | 2024-04-07 20:20 | ED_ITS ---
HPI - General Adult General Chief complaint: Hypertension Stated complaint: HTN,weakness in legs Time Seen by Provider: 04/07/24 20:07 Source: patient and EMS Mode of arrival: EMS History of Present Illness HPI narrative: 74-year-old male with a history of hyperlipidemia, hypertension, diabetes, Parkinson's, CHF, comes into the ED via EMS for evaluation of high blood pressure in persistent generalized weakness. He states that he is in the process of seeing PT OT for his generalized weakness has been ongoing persistent for several weeks. Patient does have Churchill catheter in place, he states that he came into the ED because he checked his blood pressure before taking his antihypertensive medication and it was noted to be systolic 200. He denies any headache visual disturbances chest pain shortness of breath fever chills nausea vomiting abdominal pain or any other GI/ symptoms time. States that he is still just having his persistent generalized weakness states that his Churchill catheter is supposed to be changed on the of this month, at bedside states that she does notice a little bit worsening smell and darker urine. Otherwise patient is at his baseline Related Data Home Medications Medication Instructions Recorded Confirmed latanoprost 0.005 % eye drops 1 drp DAILY 06/02/22 03/09/24 timolol maleate 0.5 % eye drops 1 drp ophthalmic (eye) DAILY 06/02/22 03/09/24 aspirin 81 mg tablet,delayed 81 mg PO DAILY 10/21/22 03/09/24 release (Adult Low Dose Aspirin) acetaminophen 500 mg tablet 500 mg PO Q6H PRN Pain (Scale 04/03/23 03/09/24 (Acetaminophen Extra Strength) Score 4-6) carbidopa 25 mg-levodopa 100 mg See Rx Instructions .Route .COMPLEX 04/03/23 03/09/24 tablet cranberry fruit 400 mg capsule 400 mg PO DAILY 04/03/23 03/09/24 entacapone 200 mg tablet 100 mg PO 5XD 05/18/23 03/09/24 Previous Rx's Medication Instructions Recorded fosfomycin tromethamine 3 gram 1 packet PO .COMPLEX #10 ea 06/24/23 oral packet lidocaine HCl 2 % mucosal solution 1 applic mucous membrane BID-TID 07/27/23 (Lidocaine Viscous) PRN pain #100 mL losartan 50 mg tablet 50 mg PO BID #180 tabs 08/22/23 metformin 850 mg tablet 850 mg PO TID #240 tabs 08/22/23 ipratropium 0.5 mg-albuterol 3 mg 3 ml inhalation Q4-6H PRN 09/23/23 (2.5 mg base)/3 mL nebulization shortness of breath or wheezing soln #90 mL atorvastatin 10 mg tablet 10 mg PO DAILY #90 tabs 11/09/23 finasteride 5 mg tablet (Proscar) 5 mg PO DAILY #10 tabs 12/01/23 fluticasone propionate 115 2 puff inhalation BID #12 grams 01/02/24 mcg-salmeterol 21 mcg/actuation HFA inhaler (Advair HFA) omeprazole 20 mg capsule,delayed 20 mg PO DAILY #90 caps 01/30/24 release blood sugar diagnostic (Blood #50 ea 02/16/24 Glucose Test strips) blood-glucose meter #1 ea 02/16/24 lancets 31 gauge (Comfort Touch #100 ea 02/16/24 Ultra Thin Lancets) gabapentin 100 mg capsule 100 mg PO 3XD #270 caps 02/20/24 potassium citrate 10 mEq (1,080 10 meq PO BID #180 tabs 02/20/24 mg) tablet,extended release tamsulosin 0.4 mg capsule 0.8 mg (2 x 0.4 mg) PO DAILY #180 02/20/24 caps albuterol sulfate 90 mcg/actuation 1 puff inhalation Q4-6H #8.5 grams 03/09/24 aerosol inhaler nitrofurantoin 100 mg PO BID #14 caps 03/20/24 monohydrate/macrocrystals 100 mg capsule (Macrobid) insulin glargine 100 unit/mL (3 See Rx Instructions .Route 04/06/24 mL) subcutaneous pen (Lantus .COMPLEX #15 mL Solostar U-100 Insulin) pen needle, diabetic 32 gauge x #100 ea 04/06/24 (BD Reshma 2nd Gen Pen Needle) nitrofurantoin 100 mg PO Q12H 5 days #10 caps 04/07/24 monohydrate/macrocrystals 100 mg capsule (Macrobid) Allergies Allergy/AdvReac Type Severity Reaction Status Date / Time No Known Drug Allergies Allergy Verified 03/09/24 16:45 Review of Systems Review of Systems Narrative: General: Persistent generalized weakness, Denies fever, chills, weight loss HEENT: Denies headache, eye drainage, eye irritation, head trauma, sore throat, voice change Cardiovascular: Positive hypertension, Denies any chest pain, palpitations, shortness of breath, tachycardia Respiratory: Denies any shortness of breath, cough, wheeze, stridor GI/: Denies any abdominal pain, nausea, vomiting, diarrhea, bright red blood per rectum, melanotic stools, urinary frequency, urinary retention, dysuria, hematuria MSK: Denies any joint pain, muscle pains, swelling Skin: Denies any rashes, lesions, discoloration Neuro: Denies any headache, lightheadedness, dizziness, fainting, weakness Psych: Denies SI/HI Patient History Medical History Urinary retention COPD exacerbation History of urinary retention Hyperlipidemia History of nephrolithiasis Left nephrolithiasis Urinary retention Recurrent UTI History of prostate cancer Acne Shoulder pain Ankle pain Measles Chicken pox Prostate cancer (~2010) Anemia Benign prostatic hyperplasia GERD (gastroesophageal reflux disease) Hypertension Type 2 diabetes mellitus Parkinson's disease Congestive heart failure Surgical History S/P deep brain stimulator placement (11/2019) History of prostate biopsy Anesthesia History of knee surgery Kidney stones Family History Father Stroke Hypertension Bacterial UTI Mother Cancer Sister Hypertension Aunt Diabetes mellitus Uncle Kidney stones Social History marital status: number of children: 3 household members: spouse and family Smoking Status: Former smoker alcohol intake: never Type(s) of exercise: walking frequency: 1-2 times per week Smoking Status: Former smoker tobacco type: cigarettes alcohol intake frequency: holidays/special occasions only Exam Narrative Exam Narrative: General: Patient baseline wheelchair, Cooperative, comfortable, well-developed, not in acute distress HEENT: Normocephalic, atraumatic, PERRLA, normal sclera, eyelids normal, Neck: Active full range of motion, atraumatic Chest: Normal to inspection, negative crepitus, no overlying erythema ecchymosis Respiratory: Normal respiratory effort, not in acute respiratory distress, clear to auscultation bilaterally negative cough, wheeze, tachypnea, rhonchi, rales Cardiology: Regular rate rhythm negative gallop, murmur, rubs GI/: Normal to inspection, soft, nonrigid, no tenderness to palpation, suprapubic Churchill catheter in place draining urine appropriately no gross deformity/abnormalities noted to the opening of the meatus MSK: Full range of active range of motion of all 4 extremities, atraumatic Skin: No rashes lesions noted Neuro: NIH of 0 no focal deficits Alert awake oriented x3, moves all 4 extremities spontaneously, cranial nerves intact, able to answer all questions appropriately follows commands appropriately Psych: Cooperative, negative suicidal or homicidal ideations Initial Vital Signs Initial Vital Signs: Vital Signs Pulse Rate 80 04/07/24 19:07 Respiratory Rate 22 04/07/24 19:07 Course Orders Ordered: ED Orders 04/07/24 19:08 EKG-12 Lead Stat 04/07/24 20:08 CXR [XR chest 1V] Stat 04/07/24 20:10 Urinalysis and Microscopic Stat Urine Culture Stat 04/07/24 20:15 Covid-19 + FLU A/B + RSV - PCR Stat 04/07/24 20:20 CBC Auto Diff [Complete Blood Count AUTO DIFF] Stat CMP [Comprehensive Metabolic Panel] Stat Lipase Stat MAG [Magnesium] Stat Troponin & CK Cardiac Panel Stat Discontinued Medications Lidocaine HCl (Lidocaine 2% (Glydo) 6 Ml Gel) 6 ml TOP NOW ONE Stop: 04/07/24 20:30 Last Admin: 04/07/24 20:33 Dose: 6 ml Documented By: [facility] Vital Signs Vital signs: Vital Signs - 8 hr 04/07/24 19:07 04/07/24 19:09 04/07/24 19:09 Temperature Pulse Rate 80 79 Respiratory Rate 22 20 Blood Pressure 170/80 H Pulse Oximetry 98 Oxygen Delivery Method 04/07/24 19:14 04/07/24 19:30 04/07/24 19:30 Temperature 99.1 F Pulse Rate 78 75 Respiratory Rate 25 H 21 Blood Pressure 170/80 H 165/76 H Pulse Oximetry 98 98 Oxygen Delivery Method Room Air Room Air 04/07/24 20:00 04/07/24 20:00 04/07/24 20:30 Temperature Pulse Rate 75 75 Respiratory Rate 21 4 L Blood Pressure 173/77 H Pulse Oximetry 97 97 Oxygen Delivery Method 04/07/24 20:32 04/07/24 20:32 04/07/24 21:00 Temperature Pulse Rate 74 Respiratory Rate 6 L Blood Pressure 157/75 H 145/68 H Pulse Oximetry 96 Oxygen Delivery Method 04/07/24 21:00 Temperature Pulse Rate 74 Respiratory Rate Blood Pressure Pulse Oximetry 97 Oxygen Delivery Method Medical Decision Making Differential Diagnosis Differential Diagnosis: ACS, pneumonia, asymptomatic hypertension, electrolyte abnormality Lab Data 04/07/24 20:20 04/07/24 20:20 Labs: Lab Results 04/07/24 04/07/24 04/07/24 Range/Units 20:10 20:15 20:20 WBC 11.5 H (4.5-11.0) X10^3/uL RBC 4.34 L (4.5-5.9) X10^6/uL Hgb 12.4 L (13.5-17.5) g/dL Hct 36.6 L (41-53) % MCV 84.3 (80-100) fL MCH 28.5 (26-34) PG MCHC 33.8 (30-36) % RDW 15.5 H (11.6-14.8) % Plt Count 260 (150-400) X10^3/uL Neut % (Auto) 74.1 (50-75) % Lymph % (Auto) 17.7 L (25-40) % [place] % (Auto) 5.5 (3-14) % Eos % (Auto) 1.3 L (2-4) % Baso % (Auto) 1.4 (0-2) % Neut # (Auto) 8500 H (4560-0303) /uL Lymph # (Auto) 2000 (2743-4660) /uL [place] # (Auto) 600 (0-900) /uL Eos # (Auto) 200 (0-450) /uL Baso # (Auto) 200 H (0-100) /uL Sodium 134 L (137-145) mmol/L Potassium 3.9 (3.4-5.1) mmol/L Chloride 104 (98-107) mmol/L Carbon Dioxide 17 L (22-32) mmol/L BUN 21 H (9-20) mg/dL Creatinine 0.90 (0.66-1.25) mg/dL Estimated GFR > 60 (>60) mL/min BUN/Creatinine Ratio 23.3 H (6-22) Glucose 166 H (80-110) mg/dL Calcium 9.2 (8.4-10.2) mg/dL Magnesium 1.5 L (1.6-2.3) mg/dL Total Bilirubin 0.5 (0.2-1.3) mg/dL AST 26 (17-59) IU/L ALT 20 (<50) IU/L Alkaline Phosphatase 99 (38-126) U/L Total Creatine Kinase 60 (55-170) U/L Troponin I < 0.012 (0.01-0.034) ng/mL Total Protein 6.7 (6.3-8.2) g/dL Albumin 3.8 (3.5-5.0) g/dL Globulin 2.9 (1.7-4.1) g/dL Albumin/Globulin Ratio 1.3 (1.0-2.8) Lipase 101 (23-300) U/L Urine Color Yellow Urine Appearance Clear Urine pH 5.5 (4.5-8.0) Ur Specific [place] <=1.005 (1.000-1.035) Urine Protein Negative (Negative) Urine Glucose (UA) Negative (Negative) g/dL Urine Ketones Negative (NEGATIVE) Urine Occult Blood Trace-intact (Negative) Urine Nitrate Negative (Negative) Urine Bilirubin Negative (NEGATIVE) Urine Urobilinogen 0.2 (0.2) E.U./dL Ur Leukocyte Esterase 3+ H (NEGATIVE) Urine RBC 1-5/hpf (0-5/HPF) Urine WBC 10-30/hpf H (0-5/HPF) Ur Squamous Epith Cells 5-10 /hpf H (0-5/HPF) Amorphous Sediment 1+ Urine Bacteria Moderate (10-30) H (None) Ur Culture Indicated? Specimen cultured Vol Urine Centrifuged 10ml (spun) SARS-CoV-2 (PCR) Negative (Negative) Influenza A (RT-PCR) Flu a negative (NEGATIVE) Influenza B (RT-PCR) Flu b negative (NEGATIVE) RSV (PCR) Negative (Negative) ECG Data Interpretation: EKG interpreted ED physician sinus 77 beats per minute left axis deviation QTC [address] changes no STEMI MDM Narrative Medical decision making narrative: 74-year-old male with a past medical history of hyperlipidemia hypertension diabetes CHF Parkinson's wheelchair at baseline comes into the ED for high blood pressure states that he checked his blood pressure prior to taking his antihypertensives and noted the systolic to be in the 200s therefore called medics. He also stating that he is having persistent generalized weakness does see PT OT for this has been seen here a month ago for similar. Patient with chronic indwelling Churchill secondary to this. Patient denies headache visual disturbances chest pain shortness breath fever chills nausea vomiting abdominal pain or any other GI/ symptoms time he is at his baseline. However at bedside states that she changed his Churchill catheter bag yesterday noted to be a little bit more foul-smelling is worried about urinary tract infection. states that his Churchill catheter is supposed to be changed by his urologist on the of this month, EKG nonischemic in nature troponin negative lab work otherwise unremarkable, urinalysis with significant amount of WBCs we will treat for acute urinary tract infection 1st dose here instructed follow up with Urology. We will give Macrobid given previous urine culture sensitivity showing resistance to every other p.o. antibiotic. Discharge Plan Departure Patient Disposition: Home Clinical Impression: Asymptomatic hypertension, Urinary tract infection Instructions: DI for Urinary Tract Infection (UTI) Activity Restrictions/Additional Instructions: Please follow up with urologist and your primary care doctor Please read the discharge instructions sheet carefully and bring all papers to all doctor follow-up visits, as it may contain information that your doctor may want to see. Disease processes change and evolve, if your symptoms worsen or if you develop any new symptoms that are concerning to you please return for evaluation. Your evaluation today does not show any evidence of any life- threatening/serious illnesses requiring admission to the hospital or surgery. Please follow-up with your doctor for re-evaluation in approximately 1 day. Seek immediate medical attention for any worrisome symptoms. *If you do not have a primary care provider please contact the [facility] Resource line at [phone]. They will ask some questions about your medical history and help get you set up with a doctor in the community. Prescriptions: New nitrofurantoin monohyd/m-cryst [Macrobid] 100 mg capsule 100 mg PO Q12H 5 Days Qty: 10 0RF Rx Instructions: must administer with a meal/food No Action fosfomycin tromethamine 3 gram packet 1 packet PO .COMPLEX Qty: 10 0RF Rx Instructions: 1 packet orally once every 10 days for 3 months atorvastatin 10 mg tablet 10 mg PO DAILY Qty: 90 3RF finasteride [Proscar] 5 mg tablet 5 mg PO DAILY Qty: 10 0RF Rx Instructions: short term for mail in fluticasone propion-salmeterol [Advair HFA] 115-21 mcg/actuation HFA aerosol inhaler 2 puff inhalation BID Qty: 12 3RF Rx Instructions: to pair with albuterol omeprazole 20 mg capsule,delayed release(DR/EC) 20 mg PO DAILY Qty: 90 1RF (DME) Comfort Touch Ult Thin Lancets 31 gauge misc See Rx Instructions .Route Qty: 100 2RF Rx Instructions: use to check blood sugars 1-2 times per day (DME) Blood Glucose Test Strip See Rx Instructions .Route Qty: 50 5RF Rx Instructions: use to check blood sugars 1-2 times per day (DME) blood-glucose meter Misc See Rx Instructions .Route Qty: 1 0RF Rx Instructions: use to check blood sugars 1-2 times per day tamsulosin 0.4 mg capsule 0.8 mg PO DAILY Qty: 180 3RF gabapentin 100 mg capsule 100 mg PO 3XD Qty: 270 1RF potassium citrate 10 mEq (1,080 mg) tablet extended release 10 meq PO BID Qty: 180 1RF nitrofurantoin monohyd/m-cryst [Macrobid] 100 mg capsule 100 mg PO BID Qty: 14 0RF Rx Instructions: must administer with a meal/food (DME) pen needle, diabetic [BD Reshma 2nd Gen Pen Needle] 32 gauge x 5/32 needle See Rx Instructions .ROUTE .MEDSUPPLY Qty: 100 3RF Rx Instructions: use to inject insulin BID insulin glargine [Lantus Solostar U-100 Insulin] 100 unit/mL (3 mL) insulin pen See Rx Instructions .ROUTE .COMPLEX Qty: 15 3RF Rx Instructions: 60 in morning, 64 units at bedtime ipratropium-albuterol 0.5 mg-3 mg(2.5 mg base)/3 mL solution for nebulization 3 ml inhalation Q4-6H PRN (Reason: shortness of breath or wheezing) Qty: 90 8RF losartan 50 mg tablet 50 mg PO BID Qty: 180 3RF metformin 850 mg tablet 850 mg PO TID Qty: 240 3RF aspirin [Adult Low Dose Aspirin] 81 mg tablet,delayed release (DR/EC) 81 mg PO DAILY albuterol sulfate 90 mcg/actuation HFA aerosol inhaler 1 puff inhalation Q4-6H Qty: 8.5 6RF timolol maleate 0.5 % drops 1 drp ophthalmic (eye) DAILY latanoprost 0.005 % drops 1 drp DAILY acetaminophen [Acetaminophen Extra Strength] 500 mg Tablet 500 mg PO Q6H PRN (Reason: Pain (Scale Score 4-6)) cranberry fruit 400 mg Capsule 400 mg PO DAILY Rx Instructions: administer with a meal carbidopa-levodopa 25-100 mg tablet See Rx Instructions .ROUTE .COMPLEX Patient Comments: extended release Rx Instructions: take 3 tabs at 0600, 2.5 tabs at 1000, 3 tabs at 1400, 2.5 tabs at 1800, 2.5 tabs at 2200 entacapone 200 mg Tablet 100 mg PO 5XD lidocaine HCl [Lidocaine Viscous] 2 % solution 1 applic mucous membrane BID-TID PRN (Reason: pain) Qty: 100 0RF Referrals: Ravindra Goldsmith DO [Primary Care Provider] - Stand Alone Forms: Patient Portal/API/Survey
[2024-04-07 20:21] LABS: Appearance Urine UA CLEAR; Bilirubin Urine UA NEGATIVE (NEGATIVE); Color Urine UA YELLOW; Glucose Urine UA NEGATIVE (Negative); Ketones Urine UA NEGATIVE (NEGATIVE); Leukocyte Esterase Urine UA 3+ (NEGATIVE); Nitrite Urine UA NEGATIVE (Negative); Occult Blood Urine UA TRACE-INTACT (Negative); Protein Urine UA NEGATIVE (Negative); Specific Gravity Urine UA <=1.005 (1.000-1.035); Urobilinogen Urine UA 0.2 E.U./dL (0.2); pH Urine UA 5.5 (4.5-8.0)
[2024-04-07 20:29] LABS: RBC Urine 1-5/HPF (0-5/HPF); Urine Volume 10mL (spun)
[2024-04-07 20:30] LABS: Amorphous Sediment Urine 1+; Bacteria Urine Moderate (10-30); Culture Indicated Urine Specimen Cultured; Squamous Epithelial Cell Urine 5-10 /HPF (0-5/HPF); WBC Urine 10-30/HPF (0-5/HPF)
[2024-04-07 20:30] LABS: Add Manual Diff / Slide Review NO; Basophils Absolute Auto 200 /uL (0-100); Basophils Percent Auto 1.4 % (0-2); Eosinophils Absolute Auto 200 /uL (0-450); Eosinophils Percent Auto 1.3 % (2-4); Hematocrit 36.6 % (41-53); Hemoglobin 12.4 g/dL (13.5-17.5); Lymphocytes Absolute Auto 2000 /uL (1100-4500); Lymphocytes Percent Auto 17.7 % (25-40); Mean Corpuscular HGB Conc 33.8 % (30-36); Mean Corpuscular Hemoglobin 28.5 PG (26-34); Mean Corpuscular Volume 84.3 fL (80-100); Monocytes Absolute Auto 600 /uL (0-900); Monocytes Percent Auto 5.5 % (3-14); Neutrophils Absolute Auto 8500 /uL (1500-7000); Neutrophils Percent Auto 74.1 % (50-75); Platelet Count 260 X10^3/uL (150-400); Red Blood Cell Count 4.34 X10^6/uL (4.5-5.9); Red Cell Distribution Width 15.5 % (11.6-14.8); White Blood Cell Count 11.5 X10^3/uL (4.5-11.0)
[2024-04-07] MEDS: LIDOCAINE 2% (GLYDO) 6 ML GEL TOP (20:33)
[2024-04-07 20:41] LABS: Alanine Aminotransferase 20 IU/L (<50); Albumin 3.8 g/dL (3.5-5.0); Albumin Globulin Ratio 1.3 (1.0-2.8); Alkaline Phosphatase 99 U/L (38-126); Aspartate Aminotransferase 26 IU/L (17-59); BUN Creatinine Ratio 23.3 (6-22); Bilirubin Total 0.5 mg/dL (0.2-1.3); Blood Urea Nitrogen 21 mg/dL (9-20); Calcium 9.2 mg/dL (8.4-10.2); Carbon Dioxide 17 mmol/L (22-32); Chloride 104 mmol/L (98-107); Creatine Kinase 60 U/L (55-170); Estimated Glomerular Filt Rate > 60 mL/min (>60); Globulin 2.9 g/dL (1.7-4.1); Glucose 166 mg/dL (80-110); HEMOLYSIS < 15 (0-50); Lipase 101 U/L (23-300); Magnesium 1.5 mg/dL (1.6-2.3); Potassium 3.9 mmol/L (3.4-5.1); Sodium 134 mmol/L (137-145); Total Protein 6.7 g/dL (6.3-8.2)
[2024-04-07 20:52] LABS: Troponin I < 0.012 ng/mL (0.01-0.034)
[2024-04-07 21:05] LABS: Influenza A - CEPHEID Flu A NEGATIVE (NEGATIVE); Influenza B - CEPHEID Flu B NEGATIVE (NEGATIVE); Respiratory Syncytial Virus Negative (Negative)
--- NOTE | 2024-04-07 21:12 | PC.NURSE ---
Attempted to remove suprapubic catheter to prepare for replacement. Unable to withdraw fluid from balloon. Only 1cc able to be extracted. notified MD and advised not to attempt further removal. Provided hygiene to area and replaced tubing and bag.
[2024-04-07 21:25] LABS: COVID-19 CEPHEID 4-PLEX PCR Negative (Negative)
[2024-04-07] MEDS: NITROFURANTOIN ER 100 MG CAPSULE PO (21:59)
== END 2024-04-07 22:20 | disposition home or self-care (01) ==
PROVIDERS: Emergency Provider Student in an Organized Health Care Education/Training Program; Family Provider Family Medicine; PCP Family Medicine
DX: I10 Essential (primary) hypertension (principal); N39.0 Urinary tract infection, site not specified; Z87.891 Personal history of nicotine dependence
CPT/HCPCS: 0241U; 36415; 71045; 80053; 81001; 82550; 83690; 83735; 84484; 85025; 87077; 87086; 87186; 93005; 99284

== ENCOUNTER → 2024-05-09 14:00 | Outpatient (CLI) | payer MEDICARE, OTHER, SELFPAY ==
[2023-05-15 16:05] VITALS: BMI 34.9
[2023-05-15 20:39] VITALS: PULSE 79; RESP 22; O2SAT 94
--- NOTE | 2024-05-09 14:08 | DIAB.FU ---
Follow-up Diabetes Education Assessment Name: Sarbjit Mayen Date: 05/09/24 Time: 205-235 Dx: Type II Diabetes Sarbjit presents with his today for MNT visit. PMH of DM x 10+ years. UTD on eye and dental. Reports PMH of glaucoma and cataracts, and significant for Parkinson's dx. Endorse FH of DM with father and sister. Recent UTI and tx with antibiotics. BG more elevated this week, which may be r/t diet choices. Reports higher CHO intake at dinner. is treating BG <100 with glass of apple juice in the morning. Diet recall: B: eggs, finney, potatoes OR cereal L: sandwich and apple D: 2c rice, meat OR frozen meal with garlic bread Sn: nothing or 2c ice cream Anthropometrics: Ht: 66 Wt: 224# 12/2023 Self-Monitoring Blood Glucose: Lower time in range this visit. More elevations, though also less lows than last visit. Some hyperglycemia may be r/t recovery from UTI, but diet may also be playing a role. Does not have a glucose meter, but Rx has been placed previously. TIR: 17% very high 37% high 46% inrange 0% low 0% very low avmg/dl GMI: 6.3% std dev: 41mg/dl TIR: 0% very high 9% high 80% inrange 9% low 2% very low avmg/dl GMI: 6.3% std dev: 41mg/dl Diabetes Medications: 850mg Metformin TID 61u Glargine BID Pertinent Labs: HgA1c: 7% 02/2023 Past Medical History: (Last Reviewed 12/20/23 @ 14:18 by Ravindra Goldsmith DO) Acne Anemia Ankle pain Benign prostatic hyperplasia Chicken pox Congestive heart failure COPD exacerbation GERD (gastroesophageal reflux disease) History of nephrolithiasis History of prostate cancer History of urinary retention Hyperlipidemia Hypertension Left nephrolithiasis Measles Parkinson's disease Prostate cancer (~2010) Recurrent UTI Shoulder pain Type 2 diabetes mellitus Urinary retention Urinary retention Nutrition Rx: Carbohydrates: Meal:45g Snack:15-30g Nutrition Diagnosis: - Nutrition and food related knowledge deficit r/t limited MNT 10 years ago aeb pt report- improved - Predicted excessive CHO intake r/t nutrition knowledge deficit aeb diet recall- in progress Intervention: This participant was very receptive. Provided appropriate educational handouts. Discussed the following topics: Review of low s/s and treatment Review of portions recs at meals Meal/snack timing Breakfast ideas Created SMART goals for patient self-care and success. Goals: Reduce insulin - d/c [place] department supervisor new meter- continue Practice Rule of 15 prn- continue Try a new breakfast- new Choose potatoes over rice at dinner- new Keep rice to 1-1.5c max- new Try afternoon snack- new Follow-up: TUTU TELLO follow-up prn per pt req. Encouraged him to call or message if needing a follow-up, he agreed. Sees PCP in one month. Sharyn Hart RDN, OMER Certified Diabetes Care and [place] P: [phone] Thank you for this referral
[2024-05-09 15:00] LABS: Add Manual Diff / Slide Review NO; Basophils Absolute Auto 100 /uL (0-100); Basophils Percent Auto 0.9 % (0-2); Eosinophils Absolute Auto 200 /uL (0-450); Eosinophils Percent Auto 2.4 % (2-4); Hematocrit 36.8 % (41-53); Hemoglobin 12.3 g/dL (13.5-17.5); Lymphocytes Absolute Auto 1800 /uL (1100-4500); Lymphocytes Percent Auto 18.1 % (25-40); Mean Corpuscular HGB Conc 33.4 % (30-36); Mean Corpuscular Hemoglobin 28.1 PG (26-34); Monocytes Absolute Auto 600 /uL (0-900); Monocytes Percent Auto 6.2 % (3-14); Neutrophils Absolute Auto 7200 /uL (1500-7000); Neutrophils Percent Auto 72.4 % (50-75); Platelet Count 257 X10^3/uL (150-400); Red Blood Cell Count 4.39 X10^6/uL (4.5-5.9); Red Cell Distribution Width 15.8 % (11.6-14.8)
[2024-05-09 15:59] LABS: HEMOLYSIS < 15 (0-50); Iron 50 ug/dL (49-181)
[2024-05-09 16:01] LABS: Alanine Aminotransferase 13 IU/L (<50); Albumin 3.8 g/dL (3.5-5.0); Albumin Globulin Ratio 1.5 (1.0-2.8); Alkaline Phosphatase 98 U/L (38-126); Aspartate Aminotransferase 20 IU/L (17-59); BUN Creatinine Ratio 24.1 (6-22); Bilirubin Total 0.6 mg/dL (0.2-1.3); Blood Urea Nitrogen 19 mg/dL (9-20); Calcium 9.8 mg/dL (8.4-10.2); Carbon Dioxide 21 mmol/L (22-32); Chloride 102 mmol/L (98-107); Estimated Glomerular Filt Rate > 60 mL/min (>60); Globulin 2.6 g/dL (1.7-4.1); Glucose 236 mg/dL (80-110); HEMOLYSIS < 15 (0-50); Potassium 4.4 mmol/L (3.4-5.1); Sodium 134 mmol/L (137-145); Total Protein 6.4 g/dL (6.3-8.2)
[2024-05-09 16:04] LABS: Hemoglobin A1C% w Est Avg Glu 7.1 % (4.0-6.0)
[2024-05-09 16:10] LABS: Percent Iron Saturation 17 % (20-50); Total Iron Binding Capacity 288 ug/dL (261-462); Transferrin 218 mg/dL (206-381)
[2024-05-09 16:32] LABS: Prostate Specific Antigen Scrn < 0.064 ng/mL (0.1-4.0)
[2024-05-09 16:50] LABS: Vitamin B12 428 pg/mL (239-931)
[2024-05-09 17:00] LABS: Bilirubin Urine UA NEGATIVE (NEGATIVE); Color Urine UA YELLOW; Glucose Urine UA TRACE g/dL (Negative); Ketones Urine UA NEGATIVE (NEGATIVE); Leukocyte Esterase Urine UA 2+ (NEGATIVE); Nitrite Urine UA NEGATIVE (Negative); Occult Blood Urine UA 3+ (Negative); Protein Urine UA NEGATIVE (Negative); Specific Gravity Urine UA <=1.005 (1.000-1.035); Urobilinogen Urine UA 0.2 E.U./dL (0.2); pH Urine UA 6.5 (4.5-8.0)
[2024-05-09 17:01] LABS: Appearance Urine UA SL CLOUDY
[2024-05-09 17:28] LABS: Bacteria Urine Moderate (10-30); Culture Indicated Urine Specimen Cultured; RBC Urine 0-1/HPF (0-5/HPF); Squamous Epithelial Cell Urine None Seen (0-5/HPF); Urine Volume 10mL (spun); WBC Urine 10-30/HPF (0-5/HPF)
== END ==
LOC: DIET 14:03
PROVIDERS: PCP Family Medicine; Referring Provider Family Medicine
DX: E11.65 Type 2 diabetes mellitus with hyperglycemia (principal); R33.9 Retention of urine, unspecified; Z12.5 Encounter for screening for malignant neoplasm of prostate; Z71.3 Dietary counseling and surveillance; Z83.3 Family history of diabetes mellitus; Z79.84 Long term (current) use of oral hypoglycemic drugs; Z79.4 Long term (current) use of insulin; G20.A1 Parkinson's disease without dyskinesia, without mention of fluctuations
CPT/HCPCS: 36415; 80053; 81001; 82607; 83036; 83540; 83550; 85025; 87077; 87086; 87186; 97803; G0103

== ENCOUNTER 2024-05-19 01:44 | Emergency (ER) | payer MEDICARE, OTHER, SELFPAY ==
[2023-05-15 16:05] VITALS: BMI 34.9
[2023-05-15 20:39] VITALS: PULSE 79; RESP 22; O2SAT 94
[2024-05-19 01:50] VITALS: BP 139/66; PULSE 79; PULSE 80; RESP 23; RESP 25; TEMP 37.1; O2SAT 94; O2SAT 99; BMI 35.5
--- NOTE | 2024-05-19 01:58 | ED_ITS ---
HPI - General Adult General Chief complaint: Shortness of Breath/Dyspnea Stated complaint: SOB Time Seen by Provider: 05/19/24 01:58 Source: EMS Mode of arrival: EMS History of Present Illness HPI narrative: 74-year-old gentleman history of Parkinson's disease with a stimulator in place, asthma, hypertension, hyperlipidemia, diabetes lives in a multi generational household all the way down to great grandchildren, with upper respiratory symptoms, increasing wheeze and eye discharge for the last 3 days. Does not describe significant fevers but has a more productive cough. 911 has been called multiple times to help this gentleman typically for falls related to his Parkinson's disease. This evening he was quite hypoxic responded nicely to a DuoNeb per medics in the 2nd given upon arrival emergency department. He is not complaining of chest pain or palpitations Related Data Home Medications Medication Instructions Recorded Confirmed latanoprost 0.005 % eye drops 1 drp DAILY 06/02/22 04/27/24 timolol maleate 0.5 % eye drops 1 drp ophthalmic (eye) DAILY 06/02/22 04/27/24 aspirin 81 mg tablet,delayed 81 mg PO DAILY 10/21/22 04/27/24 release (Adult Low Dose Aspirin) acetaminophen 500 mg tablet 500 mg PO Q6H PRN Pain (Scale 04/03/23 04/27/24 (Acetaminophen Extra Strength) Score 4-6) carbidopa 25 mg-levodopa 100 mg See Rx Instructions .Route .COMPLEX 04/03/23 04/27/24 tablet cranberry fruit 400 mg capsule 400 mg PO DAILY 04/03/23 04/27/24 entacapone 200 mg tablet 100 mg PO 5XD 05/18/23 04/27/24 Previous Rx's Medication Instructions Recorded fosfomycin tromethamine 3 gram 1 packet PO .COMPLEX #10 ea 06/24/23 oral packet lidocaine HCl 2 % mucosal solution 1 applic mucous membrane BID-TID 07/27/23 (Lidocaine Viscous) PRN pain #100 mL losartan 50 mg tablet 50 mg PO BID #180 tabs 08/22/23 ipratropium 0.5 mg-albuterol 3 mg 3 ml inhalation Q4-6H PRN 09/23/23 (2.5 mg base)/3 mL nebulization shortness of breath or wheezing soln #90 mL atorvastatin 10 mg tablet 10 mg PO DAILY #90 tabs 10/02/24 finasteride 5 mg tablet (Proscar) 5 mg PO DAILY #10 tabs 12/01/23 fluticasone propionate 115 2 puff inhalation BID #12 grams 01/02/24 mcg-salmeterol 21 mcg/actuation HFA inhaler (Advair HFA) omeprazole 20 mg capsule,delayed 20 mg PO DAILY #90 caps 01/30/24 release blood sugar diagnostic (Blood #50 ea 02/16/24 Glucose Test strips) blood-glucose meter #1 ea 02/16/24 lancets 31 gauge (Comfort Touch #100 ea 02/16/24 Ultra Thin Lancets) gabapentin 100 mg capsule 100 mg PO 3XD #270 caps 02/20/24 potassium citrate 10 mEq (1,080 10 meq PO BID #180 tabs 02/20/24 mg) tablet,extended release tamsulosin 0.4 mg capsule 0.8 mg (2 x 0.4 mg) PO DAILY #180 02/20/24 caps albuterol sulfate 90 mcg/actuation 1 puff inhalation Q4-6H #8.5 grams 03/09/24 aerosol inhaler nitrofurantoin 100 mg PO BID #14 caps 03/20/24 monohydrate/macrocrystals 100 mg capsule (Macrobid) insulin glargine 100 unit/mL (3 See Rx Instructions .Route 04/06/24 mL) subcutaneous pen (Lantus .COMPLEX #15 mL Solostar U-100 Insulin) pen needle, diabetic 32 gauge x #100 ea 04/06/24 (BD Reshma 2nd Gen Pen Needle) amlodipine 2.5 mg tablet 2.5 mg PO DAILY #90 tabs 04/13/24 methenamine hippurate 1 gram tablet 1 g PO BID #180 tabs 04/27/24 metformin 850 mg tablet 850 mg PO TID #240 tabs 05/11/24 ferrous gluconate 324 mg (37.5 mg 324 mg PO DAILY #30 tabs 05/15/24 iron) tablet sulfamethoxazole 800 1 tab PO BID #20 tabs 05/15/24 mg-trimethoprim 160 mg tablet (Bactrim DS) gentamicin 0.3 % eye drops 2 drp EYE-BOTH Q6H 5 days #5 mL 05/19/24 ipratropium 0.5 mg-albuterol 3 mg 3 ml inhalation Q6H PRN shortness 05/19/24 (2.5 mg base)/3 mL nebulization of breath or wheezing #180 mL soln prednisone 20 mg tablet 20 mg PO DAILY #5 tabs 05/19/24 Allergies Allergy/AdvReac Type Severity Reaction Status Date / Time No Known Drug Allergies Allergy Verified 04/27/24 13:27 Review of Systems Review of Systems Narrative: Pertinent positive and negative findings as per HPI Patient History Medical History Urinary retention COPD exacerbation History of urinary retention Hyperlipidemia History of nephrolithiasis Left nephrolithiasis Urinary retention Recurrent UTI History of prostate cancer Acne Shoulder pain Ankle pain Measles Chicken pox Prostate cancer (~2010) Anemia Benign prostatic hyperplasia GERD (gastroesophageal reflux disease) Hypertension Type 2 diabetes mellitus Parkinson's disease Congestive heart failure Surgical History S/P deep brain stimulator placement (11/2019) History of prostate biopsy Anesthesia History of knee surgery Kidney stones Family History Father Stroke Hypertension Bacterial UTI Mother Cancer Sister Hypertension Aunt Diabetes mellitus Uncle Kidney stones Social History marital status: number of children: 3 household members: spouse and family Smoking Status: Former smoker alcohol intake: never Type(s) of exercise: walking frequency: 1-2 times per week Smoking Status: Former smoker tobacco type: cigarettes alcohol intake frequency: holidays/special occasions only Exam Initial Vital Signs Initial Vital Signs: Vital Signs Temperature 98.8 F 05/19/24 01:50 Pulse Rate 80 05/19/24 01:50 Respiratory Rate 25 H 05/19/24 01:50 Blood Pressure 139/66 05/19/24 01:50 Pulse Oximetry 94 05/19/24 01:50 Oxygen Delivery Method Room Air 05/19/24 01:50 General: Chronically ill-appearing, flat affect able to cooperate with exam HEENT: Moist mucous membranes, bilaterally injected sclera with discharge from each eye. Reactive pupils, no pain with extraocular eye movement or with the exposure to light Neck: No JVD, supple Respiratory: Lungs with wheeze through all lung cain, no rhonchi Cardiac: Regular rate and rhythm no murmurs no bruits Abdomen: Soft, nontender, no rebound or guarding, no flank pain Skin: Warm and dry, no rashes Neurologic: Mild cogwheel rigidity but no other localizing neurologic symptoms Extremities: No trauma, no significant lower extremity edema Psych: Flat affect but otherwise Cooperative, Course Orders Ordered: ED Orders 05/19/24 02:02 Sputum Culture Stat 05/19/24 02:03 XR chest 1V Stat Urinalysis and Microscopic Stat EKG-12 Lead Stat 05/19/24 02:13 Covid-19 + FLU A/B + RSV - PCR Stat 05/19/24 02:19 Blood Culture Stat Complete Blood Count AUTO DIFF Stat Comprehensive Metabolic Panel Stat D Dimer Stat Lactate (Lactic Acid) Stat Lipase Stat Magnesium Stat NT-proBNP (BNP-Adult 18+) Stat Procalcitonin Stat Troponin I Stat Discontinued Medications Albuterol/Ipratropium (Albuterol/Ipratropium 3 Ml Ampul) 3 ml INH NOW ONE Stop: 05/19/24 02:03 Last Admin: 05/19/24 02:12 Dose: 3 ml Documented By: TT Vital Signs Vital signs: Vital Signs - 8 hr 05/19/24 01:50 05/19/24 01:50 05/19/24 02:13 Temperature 98.8 F Pulse Rate 80 79 87 Respiratory Rate 25 H 23 20 Blood Pressure 139/66 Pulse Oximetry 94 99 Oxygen Delivery Method Room Air Room Air Medical Decision Making Lab Data 05/19/24 02:19 05/19/24 02:19 Labs: Lab Results 05/19/24 Range/Units 02:19 WBC 6.5 (4.5-11.0) X10^3/uL RBC 4.15 L (4.5-5.9) X10^6/uL Hgb 11.8 L (13.5-17.5) g/dL Hct 35.2 L (41-53) % MCV 84.9 (80-100) fL MCH 28.5 (26-34) PG MCHC 33.5 (30-36) % RDW 15.8 H (11.6-14.8) % Plt Count 223 (150-400) X10^3/uL Neut % (Auto) 59.9 (50-75) % Lymph % (Auto) 26.3 (25-40) % Craig % (Auto) 10.2 (3-14) % Eos % (Auto) 2.4 (2-4) % Baso % (Auto) 1.2 (0-2) % Neut # (Auto) 3900 (0835-3863) /uL Lymph # (Auto) 1700 (2971-5150) /uL Craig # (Auto) 700 (0-900) /uL Eos # (Auto) 200 (0-450) /uL Baso # (Auto) 100 (0-100) /uL D-Dimer 425 (<500) ng/ml Sodium 138 (137-145) mmol/L Potassium 4.0 (3.4-5.1) mmol/L Chloride 105 (98-107) mmol/L Carbon Dioxide 27 (22-32) mmol/L BUN 20 (9-20) mg/dL Creatinine 0.87 (0.66-1.25) mg/dL Estimated GFR > 60 (>60) mL/min BUN/Creatinine Ratio 23.0 H (6-22) Glucose 126 H D (80-110) mg/dL Calcium 9.9 (8.4-10.2) mg/dL Magnesium 1.8 (1.6-2.3) mg/dL Total Bilirubin 0.6 (0.2-1.3) mg/dL AST 19 (17-59) IU/L ALT 12 (<50) IU/L Alkaline Phosphatase 83 (38-126) U/L Total Protein 6.8 (6.3-8.2) g/dL Albumin 3.7 (3.5-5.0) g/dL Globulin 3.1 (1.7-4.1) g/dL Albumin/Globulin Ratio 1.2 (1.0-2.8) Lipase 65 (23-300) U/L MDM Narrative Medical decision making narrative: CC: Dyspnea increasing for 3 days with bilateral red eyes with discharge Complicating co-morbidities: Parkinson's disease, hypertension, hyperlipidemia, diabetes, COPD Data collected from: patient, medics Medical records reviewed: Primary care note from April 13 reviewed Differential considered: Viral syndrome, COPD exacerbation, congestive heart failure, conjunctivitis, Exam documented above, pertinent findings include: Bilaterally injected eyes with purulent discharge from both without light sensitivity and with reactive pupils, wheeze throughout all lung cain without obvious rhonchi or rales. No acute abdomen Lab Test results independently reviewed as above. Pertinent findings: CBC shows no significant leukocytosis, chronic stable anemia Chemistries are notable for a lactic acid slightly elevated at 2.2, normal renal function, normal liver studies Independently reviewed EKG: Sinus rhythm at a rate of 81, poor baseline but no obvious ischemic changes Imaging studies independently reviewed: Chest x-ray shows peribronchial cuffing, no pneumothorax, congestive heart failure, cardiomegaly. Treatments: DuoNeb Solu-Medrol Discussion: 74-year-old gentleman with 4 days of increasing upper respiratory symptoms and wheeze. Medics were called out today and found him significantly dyspneic and somewhat hypoxic. He is responded nicely to 2 DuoNebs, IV Solu- Medrol. There was no evidence of bacterial pneumonia or sepsis overall. There was no evidence of congestive heart failure or acute coronary syndrome. We placed on a prednisone course for 5 days, eyedrops for bilateral bacterial conjunctivitis and recommend continued using his nebulized treatment. There was no indication for additional imaging, hospitalization or further workup today, patient was discharged home Discharge Plan Departure Patient Disposition: Home Clinical Impression: Acute exacerbation of chronic obstructive pulmonary disease, Viral upper respiratory illness Bilateral conjunctivitis Qualifiers: Conjunctivitis type: acute Acute conjunctivitis type: bacterial Qualified Code(s): H10.33 - Unspecified acute conjunctivitis, bilateral Instructions: DI for Chronic Obstructive Pulmonary Disease, DI for Conjunctivitis, DI for Viral Upper Respiratory Infection -- Adult Activity Restrictions/Additional Instructions: Thank you for coming in today You have an upper respiratory infection that is causing an acute COPD exacerbation. I am going to give you 5 days of prednisone to help with inflammation and wheezing. I will refill your DuoNeb nebulized solution to use every 4-6 hours as needed for wheezing. You do have bacterial eye infections and I am going to give you a prescription for gentamicin eyedrops to use in both eyes 4 times a day for the next 5 days You do not have bacterial pneumonia and do not need oral antibiotics There is no evidence of heart failure or heart attack. If you find that you are getting worse or develop any new symptoms, please feel free to return to the emergency department for further evaluation. Prescriptions: New ipratropium-albuterol 0.5 mg-3 mg(2.5 mg base)/3 mL solution for nebulization 3 ml inhalation Q6H PRN (Reason: shortness of breath or wheezing) Qty: 180 0RF prednisone 20 mg tablet 20 mg PO DAILY Qty: 5 0RF gentamicin 0.3 % drops 2 drp EYE-BOTH Q6H 5 Days Qty: 5 0RF No Action fosfomycin tromethamine 3 gram packet 1 packet PO .COMPLEX Qty: 10 0RF Rx Instructions: 1 packet orally once every 10 days for 3 months atorvastatin 10 mg tablet 10 mg PO DAILY Qty: 90 3RF finasteride [Proscar] 5 mg tablet 5 mg PO DAILY Qty: 10 0RF Rx Instructions: short term for mail in fluticasone propion-salmeterol [Advair HFA] 115-21 mcg/actuation HFA aerosol inhaler 2 puff inhalation BID Qty: 12 3RF Rx Instructions: to pair with albuterol omeprazole 20 mg capsule,delayed release(DR/EC) 20 mg PO DAILY Qty: 90 1RF (DME) Comfort Touch Ult Thin Lancets 31 gauge misc See Rx Instructions .Route Qty: 100 2RF Rx Instructions: use to check blood sugars 1-2 times per day (DME) Blood Glucose Test Strip See Rx Instructions .Route Qty: 50 5RF Rx Instructions: use to check blood sugars 1-2 times per day (DME) blood-glucose meter Misc See Rx Instructions .Route Qty: 1 0RF Rx Instructions: use to check blood sugars 1-2 times per day tamsulosin 0.4 mg capsule 0.8 mg PO DAILY Qty: 180 3RF gabapentin 100 mg capsule 100 mg PO 3XD Qty: 270 1RF potassium citrate 10 mEq (1,080 mg) tablet extended release 10 meq PO BID Qty: 180 1RF nitrofurantoin monohyd/m-cryst [Macrobid] 100 mg capsule 100 mg PO BID Qty: 14 0RF Rx Instructions: must administer with a meal/food (DME) pen needle, diabetic [BD Reshma 2nd Gen Pen Needle] 32 gauge x 5/32 needle See Rx Instructions .ROUTE .MEDSUPPLY Qty: 100 3RF Rx Instructions: use to inject insulin BID insulin glargine [Lantus Solostar U-100 Insulin] 100 unit/mL (3 mL) insulin pen See Rx Instructions .ROUTE .COMPLEX Qty: 15 3RF Rx Instructions: 60 in morning, 64 units at bedtime metformin 850 mg tablet 850 mg PO TID Qty: 240 3RF sulfamethoxazole-trimethoprim [Bactrim DS] 800-160 mg tablet 1 tab PO BID Qty: 20 0RF ferrous gluconate 324 mg (37.5 mg iron) tablet 324 mg PO DAILY Qty: 30 0RF ipratropium-albuterol 0.5 mg-3 mg(2.5 mg base)/3 mL solution for nebulization 3 ml inhalation Q4-6H PRN (Reason: shortness of breath or wheezing) Qty: 90 8RF losartan 50 mg tablet 50 mg PO BID Qty: 180 3RF aspirin [Adult Low Dose Aspirin] 81 mg tablet,delayed release (DR/EC) 81 mg PO DAILY albuterol sulfate 90 mcg/actuation HFA aerosol inhaler 1 puff inhalation Q4-6H Qty: 8.5 6RF amlodipine 2.5 mg tablet 2.5 mg PO DAILY Qty: 90 3RF timolol maleate 0.5 % drops 1 drp ophthalmic (eye) DAILY latanoprost 0.005 % drops 1 drp DAILY acetaminophen [Acetaminophen Extra Strength] 500 mg Tablet 500 mg PO Q6H PRN (Reason: Pain (Scale Score 4-6)) cranberry fruit 400 mg Capsule 400 mg PO DAILY Rx Instructions: administer with a meal carbidopa-levodopa 25-100 mg tablet See Rx Instructions .ROUTE .COMPLEX Patient Comments: extended release Rx Instructions: take 3 tabs at 0600, 2.5 tabs at 1000, 3 tabs at 1400, 2.5 tabs at 1800, 2.5 tabs at 2200 entacapone 200 mg Tablet 100 mg PO 5XD methenamine hippurate 1 gram tablet 1 g PO BID Qty: 180 3RF lidocaine HCl [Lidocaine Viscous] 2 % solution 1 applic mucous membrane BID-TID PRN (Reason: pain) Qty: 100 0RF Referrals: Ravindra Goldsmith DO [Primary Care Provider] - Stand Alone Forms: Patient Portal/API/Survey
[2024-05-19 02:00] VITALS: PULSE 80; RESP 21; O2SAT 96
--- NOTE | 2024-05-19 02:03 | DI.RAD.S_ITS ---
PROCEDURE: XR CHEST 1V INDICATIONS: wheeze TECHNIQUE: One view of the chest was acquired. COMPARISON: [facility], CR, XR CHEST 1V, 07/15/2023, 21:57. [facility], CR, XR CHEST 1V, 03/01/2024, 13:20. [facility], CR, XR CHEST 1V, 04/07/2024, 20:15. FINDINGS: Surgical changes and devices: There is a right-sided neural stimulator. Lungs and pleura: An incomplete inspiratory result is noted, causing a crowded appearance to the lung markings. No focal infiltrates are seen. Mild bronchial wall thickening can be seen. No pneumothorax or significant pleural effusions are seen. Mediastinum: The cardiac contours are within normal limits. The aorta demonstrates calcification and tortuosity. Bones and chest wall: No suspicious bony lesions. Age-appropriate bony degenerative changes are seen. Overlying soft tissues appear unremarkable. IMPRESSION: Mild bronchial wall thickening is seen-please consider bronchitis. No focal infiltrates are seen. Low lung volumes noted. Note: No significant discrepancy from the preliminary report. Dictated by: Benji Morris M.D. on 05/19/2024 at 6:15 Approved by: Benji Morris M.D. on 05/19/2024 at 6:16
[2024-05-19] MEDS: ALBUTEROL/IPRATROPIUM 3 ML AMPUL INH (02:12)
[2024-05-19 02:13] VITALS: PULSE 87; RESP 20
--- NOTE | 2024-05-19 02:21 | EKG_ITS ---
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
[2024-05-19 02:29] LABS: Add Manual Diff / Slide Review NO; Basophils Absolute Auto 100 /uL (0-100); Basophils Percent Auto 1.2 % (0-2); Eosinophils Absolute Auto 200 /uL (0-450); Eosinophils Percent Auto 2.4 % (2-4); Hematocrit 35.2 % (41-53); Hemoglobin 11.8 g/dL (13.5-17.5); Lymphocytes Absolute Auto 1700 /uL (1100-4500); Lymphocytes Percent Auto 26.3 % (25-40); Mean Corpuscular HGB Conc 33.5 % (30-36); Mean Corpuscular Hemoglobin 28.5 PG (26-34); Mean Corpuscular Volume 84.9 fL (80-100); Monocytes Absolute Auto 700 /uL (0-900); Monocytes Percent Auto 10.2 % (3-14); Neutrophils Absolute Auto 3900 /uL (1500-7000); Neutrophils Percent Auto 59.9 % (50-75); Platelet Count 223 X10^3/uL (150-400); Red Blood Cell Count 4.15 X10^6/uL (4.5-5.9); Red Cell Distribution Width 15.8 % (11.6-14.8); White Blood Cell Count 6.5 X10^3/uL (4.5-11.0)
[2024-05-19 02:30] VITALS: PULSE 85; RESP 20; O2SAT 96
[2024-05-19 02:39] LABS: D Dimer 425 ng/ml (<500)
[2024-05-19 02:41] LABS: Lactate (Lactic Acid) 2.2 mmol/L (0.7-2.1)
[2024-05-19 02:42] LABS: Alanine Aminotransferase 12 IU/L (<50); Albumin 3.7 g/dL (3.5-5.0); Albumin Globulin Ratio 1.2 (1.0-2.8); Alkaline Phosphatase 83 U/L (38-126); Aspartate Aminotransferase 19 IU/L (17-59); Bilirubin Total 0.6 mg/dL (0.2-1.3); Blood Urea Nitrogen 20 mg/dL (9-20); Calcium 9.9 mg/dL (8.4-10.2); Carbon Dioxide 27 mmol/L (22-32); Chloride 105 mmol/L (98-107); Estimated Glomerular Filt Rate > 60 mL/min (>60); Globulin 3.1 g/dL (1.7-4.1); Glucose 126 mg/dL (80-110); HEMOLYSIS < 15 (0-50); Lipase 65 U/L (23-300); Magnesium 1.8 mg/dL (1.6-2.3); Sodium 138 mmol/L (137-145); Total Protein 6.8 g/dL (6.3-8.2)
[2024-05-19 02:54] LABS: NT-proBNP (BNP-Adult 18+) 152 pg/mL (<450); Troponin I < 0.012 ng/mL (0.01-0.034)
[2024-05-19 03:00] VITALS: BP 122/56; PULSE 86; RESP 17; O2SAT 96
[2024-05-19 03:08] LABS: Influenza A - CEPHEID Flu A NEGATIVE (NEGATIVE); Influenza B - CEPHEID Flu B NEGATIVE (NEGATIVE); Respiratory Syncytial Virus Negative (Negative)
[2024-05-19 03:09] LABS: COVID-19 CEPHEID 4-PLEX PCR Negative (Negative)
[2024-05-19 03:13] LABS: Bilirubin Urine UA NEGATIVE (NEGATIVE); Color Urine UA YELLOW; Glucose Urine UA NEGATIVE (Negative); Ketones Urine UA TRACE (NEGATIVE); Leukocyte Esterase Urine UA 2+ (NEGATIVE); Nitrite Urine UA POSITIVE (Negative); Occult Blood Urine UA NEGATIVE (Negative); Protein Urine UA 2+ (Negative)
[2024-05-19 03:14] LABS: Appearance Urine UA SL CLOUDY
[2024-05-19 03:15] LABS: Bacteria Urine Many (>30); Culture Indicated Urine Specimen Cultured; Squamous Epithelial Cell Urine 0-1 /HPF (0-5/HPF); Urine Volume 10mL (spun); WBC Urine 30-100/HPF (0-5/HPF)
[2024-05-19] MEDS: methylPREDNISolone 125 MG/2 ML VIAL IV (03:15)
[2024-05-19 03:16] LABS: RBC Urine 0-1/HPF (0-5/HPF)
[2024-05-19 03:30] VITALS: BP 121/55; PULSE 85; RESP 20; O2SAT 98
[2024-05-19 04:02] LABS: Reflexed Lactate in 2 Hours Y
== END 2024-05-19 03:58 | disposition home or self-care (01) ==
PROVIDERS: Emergency Provider Emergency Medicine; Family Provider Family Medicine; PCP Family Medicine
DX: J44.1 Chronic obstructive pulmonary disease with (acute) exacerbation (principal); H10.33 Unspecified acute conjunctivitis, bilateral; J06.9 Acute upper respiratory infection, unspecified; G20.A1 Parkinson's disease without dyskinesia, without mention of fluctuations
CPT/HCPCS: 0241U; 36415; 71045; 80053; 81001; 83605; 83690; 83735; 83880; 84145; 84484; 85025; 85379; 87040; 87070; 87077; 87086; 87185; 87186; 87205; 93005; 94640; 96374; 99284; J2919

== ENCOUNTER → 2024-05-22 13:53 | Outpatient (CLI) | payer MEDICARE, OTHER, SELFPAY ==
[2023-05-15 16:05] VITALS: BMI 34.9
[2023-05-15 20:39] VITALS: PULSE 79; RESP 22; O2SAT 94
--- NOTE | 2024-05-22 13:55 | DI.ECHO.S_ITS ---
[facility] : : [address] : : [place] : : [id number] : : Phone: [phone] Echocardiogram Report + + :Name: SHASHANK MENDEZ Study Date: 05/22/2024 Height: 66 in : :Hospital ReadingLocation: Weight: 220 lb : : Gender: Male BSA: 2.1 m2 : :: 1950 Age: 74 yrs BP: 153/78 mmHg: :Reason For Study: SOB : :Ordering Physician: NEO, : :GLORIA Performed By: Shantell Petty : :Referring: GLORIA HUGGINS : + + Interpretation Summary 1) Normal left ventricular thickness, size, wall motion, and systolic function (EF 60-65%). 2) Normal right ventricular size and function. 3) No significant valvular abnormalities. 4) Compared to the Echo done , no significant change. Procedure: A two-dimensional transthoracic echocardiogram with color flow and Doppler was performed. The study quality was technically limited. A contrast injection of Definity was performed to improve assessment of LV function. Comparison is made with the echocardiogram of 01-20-23. The heart rate ranged between 90-91 bpm during the study. Left Ventricle: The left ventricle is normal in size. Left ventricular wall thickness is at the upper limits of normal. The ejection fraction is estimated to be 60-65%. Diastolic function could not be accurately assessed due to unobtainable data. Right Ventricle: The right ventricle grossly appears normal in size with probable normal systolic function. Atria: The left atrium grossly appears normal in size. Right atrium not well visualized. The interatrial septum is not well visualized. Mitral Valve: The mitral valve is normal in structure and function. There is no mitral regurgitation noted. Aortic Valve: The aortic valve is trileaflet. The aortic valve opens well. There is no aortic valve stenosis. No aortic regurgitation is present. Tricuspid Valve: The tricuspid valve is not well visualized, but is grossly normal. No tricuspid regurgitation. Pulmonic Valve: The pulmonic valve is not well visualized. Great Vessels: The aortic root is borderline dilated. The ascending aorta is normal in size. The aortic arch is normal in size. The inferior vena cava was not visualized. Pericardium/ Pleura There is no pericardial effusion. There is no pleural effusion. MMode/2D Measurements & Calculations LVIDd: 4.7 cm LVOT diam: 2.2 cm LVIDs: 2.3 cm Ao root diam: 4.2 cm FS: 50.5 % asc Aorta Diam: 3.4 cm EPSS: 0.94 cm Ao Arch Diam (Prox Trans): 2.8 cm IVSd: 1.1 cm LVPWd: 1.1 cm LV carrera. diameter/BSA (cm/m^2): 2.3 LV sys. diameter/BSA (cm/m^2): 1.1 LA A4 area: 16.9 cm2 LA length (vol): 5.0 cm Doppler Measurements & Calculations Ao V2 max: 140.7 cm/sec LVOT Max Aashish: 101.5 cm/sec Ao V2 mean: 103.1 cm/sec LV V1 max P.1 mmHg Ao max P.9 mmHg LV V1 VTI: 26.4 cm Ao mean P.6 mmHg SIL(I,D): 3.6 cm2 Ao V2 VTI: 27.9 cm SIL(V,D): 2.7 cm2 sev ratio: 0.95 SIL indexed to BSA (cm^2/m^2): 1.7 MV E max aashish: 83.0 cm/sec PA V2 max: 84.6 cm/sec MV A max aashish: 120.7 cm/sec PA V2 mean: 61.0 cm/sec MV E/A: 0.69 PA mean P.7 mmHg MV dec time: 0.27 sec PA pr(Accel): 10.5 mmHg SV(LVOT): 100.4 ml Reading Physician:06:03 PM
== END ==
PROVIDERS: Family Provider Family Medicine; PCP Family Medicine; Referring Provider Internal Medicine Cardiovascular Disease; Visit Provider Internal Medicine Cardiovascular Disease
DX: I50.32 Chronic diastolic (congestive) heart failure (principal); I77.89 Other specified disorders of arteries and arterioles
CPT/HCPCS: 93306; Q9957

== ENCOUNTER → 2024-05-25 11:22 | Outpatient (CLI) | payer MEDICARE, OTHER, SELFPAY ==
[2023-05-15 16:05] VITALS: BMI 34.9
[2023-05-15 20:39] VITALS: PULSE 79; RESP 22; O2SAT 94
[2024-05-25 12:25] LABS: Urine Volume 10mL (spun)
[2024-05-25 12:26] LABS: Amorphous Sediment Urine 2+; Bacteria Urine Moderate (10-30); Culture Indicated Urine Specimen Cultured; RBC Urine 1-5/HPF (0-5/HPF); Squamous Epithelial Cell Urine 1-5 /HPF (0-5/HPF); WBC Urine 5-10/HPF (0-5/HPF)
== END ==
PROVIDERS: Family Provider Family Medicine; PCP Family Medicine; Referring Provider Family Medicine; Visit Provider Family Medicine
DX: N39.0 Urinary tract infection, site not specified (principal); A41.9 Sepsis, unspecified organism
CPT/HCPCS: 81015; 87077; 87086; 87186

== ENCOUNTER → 2024-06-05 14:55 | Outpatient (CLI) | payer MEDICARE, OTHER, SELFPAY ==
[2023-05-15 16:05] VITALS: BMI 34.9
[2023-05-15 20:39] VITALS: PULSE 79; RESP 22; O2SAT 94
[2024-06-05 15:33] LABS: RBC Urine 0-1/HPF (0-5/HPF); Urine Volume 10mL (spun)
[2024-06-05 15:34] LABS: Bacteria Urine Many (>30); Culture Indicated Urine Specimen Cultured; Squamous Epithelial Cell Urine 0-1 /HPF (0-5/HPF); WBC Urine 10-30/HPF (0-5/HPF)
== END ==
PROVIDERS: Family Provider Family Medicine; PCP Family Medicine; Referring Provider Family Medicine; Visit Provider Family Medicine
DX: N39.0 Urinary tract infection, site not specified (principal); A41.9 Sepsis, unspecified organism
CPT/HCPCS: 81015; 87077; 87086; 87186

== ENCOUNTER → 2024-06-14 15:26 | Outpatient (CLI) | payer MEDICARE, OTHER, SELFPAY ==
[2023-05-15 16:05] VITALS: BMI 34.9
[2023-05-15 20:39] VITALS: PULSE 79; RESP 22; O2SAT 94
== END ==
LOC: LAB 15:38
PROVIDERS: Family Provider Family Medicine; PCP Family Medicine; Visit Provider Family Medicine
DX: N17.9 Acute kidney failure, unspecified (principal); N39.0 Urinary tract infection, site not specified
CPT/HCPCS: 87077; 87086

== ENCOUNTER 2024-06-22 14:59 | Emergency (ER) | payer MEDICARE, OTHER, SELFPAY ==
[2023-05-15 16:05] VITALS: BMI 34.9
[2023-05-15 20:39] VITALS: PULSE 79; RESP 22; O2SAT 94
[2024-06-22] VITALS (29 sets, daily range): BP systolic 153–237; BP diastolic 68–126; PULSE 69–88; RESP 15–27; TEMP 36.7; O2SAT 96–100; BMI 34.7
--- NOTE | 2024-06-22 15:16 | EKG_ITS ---
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
--- NOTE | 2024-06-22 15:27 | DI.RAD.S_ITS ---
PROCEDURE: XR CHEST 1V INDICATIONS: Chest Pain TECHNIQUE: One view of the chest was acquired. COMPARISON: [facility], CR, XR CHEST 1V, 05/19/2024, 2:03. [facility], CR, XR CHEST 1V, 04/07/2024, 20:15. FINDINGS: Surgical changes and devices: Right chest wall generator present. Lungs and pleura: Lungs are clear. No pleural effusions or pneumothorax. Mediastinum: Mediastinal contours appear normal. Heart size is normal. Bones and chest wall: No suspicious bony lesions. Overlying soft tissues appear unremarkable. IMPRESSION: No acute cardiopulmonary abnormality is seen. Dictated by: Jama Pierson M.D. on 06/22/2024 at 15:59 Approved by: Jama Pierson M.D. on 06/22/2024 at 15:59
[2024-06-22 15:51] LABS: INR 0.9 (0.9-1.3); Prothrombin Time 10.5 SECONDS (9.4-12.5)
[2024-06-22 15:54] LABS: PTT Partial Thromboplastin Tim 32 SECONDS (25.1-36.5)
[2024-06-22 15:55] LABS: Alanine Aminotransferase 15 IU/L (<50); Albumin 4.2 g/dL (3.5-5.0); Albumin Globulin Ratio 1.4 (1.0-2.8); Alkaline Phosphatase 102 U/L (38-126); Aspartate Aminotransferase 15 IU/L (17-59); BUN Creatinine Ratio 23.8 (6-22); Bilirubin Total 0.7 mg/dL (0.2-1.3); Blood Urea Nitrogen 20 mg/dL (9-20); Calcium 9.5 mg/dL (8.4-10.2); Carbon Dioxide 23 mmol/L (22-32); Chloride 103 mmol/L (98-107); Creatine Kinase 38 U/L (55-170); Estimated Glomerular Filt Rate > 60 mL/min (>60); Glucose 230 mg/dL (70-99); HEMOLYSIS 16 (0-50); Lipase 94 U/L (23-300); Magnesium 1.7 mg/dL (1.6-2.3); Potassium 4.2 mmol/L (3.4-5.1); Sodium 135 mmol/L (137-145); Total Protein 7.2 g/dL (6.3-8.2)
[2024-06-22 16:07] LABS: Add Manual Diff / Slide Review NO; Basophils Absolute Auto 100 /uL (0-100); Basophils Percent Auto 1.4 % (0-2); Eosinophils Absolute Auto 300 /uL (0-450); Eosinophils Percent Auto 3.1 % (2-4); Hematocrit 38.8 % (41-53); Hemoglobin 13.2 g/dL (13.5-17.5); Lymphocytes Absolute Auto 2100 /uL (1100-4500); Lymphocytes Percent Auto 24.7 % (25-40); Mean Corpuscular Hemoglobin 28.8 PG (26-34); Mean Corpuscular Volume 84.8 fL (80-100); Monocytes Absolute Auto 500 /uL (0-900); Monocytes Percent Auto 6.5 % (3-14); NT-proBNP (BNP-Adult 18+) 249 pg/mL (<450); Neutrophils Absolute Auto 5400 /uL (1500-7000); Neutrophils Percent Auto 64.3 % (50-75); Platelet Count 255 X10^3/uL (150-400); Red Blood Cell Count 4.58 X10^6/uL (4.5-5.9); Red Cell Distribution Width 16.4 % (11.6-14.8); Troponin I < 0.012 ng/mL (0.01-0.034); White Blood Cell Count 8.5 X10^3/uL (4.5-11.0)
[2024-06-22 16:51] LABS: Bacteria Urine Moderate (10-30); Culture Indicated Urine Specimen Cultured; RBC Urine 1-5/HPF (0-5/HPF); Squamous Epithelial Cell Urine 1-5 /HPF (0-5/HPF); Urine Volume 10mL (spun); WBC Urine 10-30/HPF (0-5/HPF)
[2024-06-22] MEDS: SODIUM CHLORIDE 0.9% 1,000 ML 1000 ML IV ×2 (17:11→18:51)
[2024-06-22 17:19] LABS: Reflexed Lactate in 2 Hours Y
[2024-06-22 18:22] LABS: Lactate 2HR (Lactic Acid Rflx) 2.6 mmol/L (0.7-2.1)
--- NOTE | 2024-06-22 18:29 | ED_ITS ---
HPI - General Adult General Chief complaint: Hypertension Stated complaint: High Blood Pressure Time Seen by Provider: 06/22/24 16:06 Source: patient and EMS Mode of arrival: EMS History of Present Illness HPI narrative: 74-year-old male with history of high blood pressure, t2d, dyslipidemia, Parkinson's, COPD, chronic uti with indwelling catheter, presents today with elevated blood pressure after home health nurse noticed blood pressure was elevated over 200 confirmed by EMS brought over here for further evaluation. Patient is asymptomatic has no headache, dizziness, blurred vision, chest pain, shortness of breath, leg swelling, or weakness. Other than what is stated 14 point review of system is negative. Related Data Home Medications Medication Instructions Recorded Confirmed latanoprost 0.005 % eye drops 1 drp DAILY 06/02/22 06/14/24 aspirin 81 mg tablet,delayed 81 mg PO DAILY 10/21/22 06/14/24 release (Adult Low Dose Aspirin) acetaminophen 500 mg tablet 500 mg PO Q6H PRN Pain (Scale 04/03/23 06/14/24 (Acetaminophen Extra Strength) Score 4-6) carbidopa 25 mg-levodopa 100 mg See Rx Instructions .Route .COMPLEX 04/03/23 06/14/24 tablet cranberry fruit 400 mg capsule 400 mg PO DAILY 04/03/23 06/14/24 entacapone 200 mg tablet 100 mg PO 5XD 05/18/23 06/14/24 losartan 50 mg tablet 50 mg PO DAILY 05/25/24 06/14/24 potassium chloride 10 mEq 10 meq PO BID 05/25/24 06/14/24 tablet,extended release selegiline HCl 5 mg tablet 5 mg PO BID 05/25/24 06/14/24 temazepam 15 mg capsule 15 mg PO BEDTIME PRN 05/25/24 06/14/24 timolol maleate 0.25 % eye drops drp EYE-BOTH DAILY 05/25/24 06/14/24 Previous Rx's Medication Instructions Recorded lidocaine HCl 2 % mucosal solution 1 applic mucous membrane BID-TID 07/27/23 (Lidocaine Viscous) PRN pain #100 mL atorvastatin 10 mg tablet 10 mg PO DAILY #90 tabs 11/09/23 finasteride 5 mg tablet (Proscar) 5 mg PO DAILY #10 tabs 12/01/23 omeprazole 20 mg capsule,delayed 20 mg PO DAILY #90 caps 01/30/24 release blood sugar diagnostic (Blood #50 ea 02/16/24 Glucose Test strips) blood-glucose meter #1 ea 02/16/24 lancets 31 gauge (Comfort Touch #100 ea 02/16/24 Ultra Thin Lancets) gabapentin 100 mg capsule 100 mg PO 3XD #270 caps 02/20/24 potassium citrate 10 mEq (1,080 10 meq PO BID #180 tabs 02/20/24 mg) tablet,extended release tamsulosin 0.4 mg capsule 0.8 mg (2 x 0.4 mg) PO DAILY #180 02/20/24 caps pen needle, diabetic 32 gauge x #100 ea 04/06/24 (BD Reshma 2nd Gen Pen Needle) amlodipine 2.5 mg tablet 2.5 mg PO DAILY #90 tabs 04/13/24 methenamine hippurate 1 gram tablet 1 g PO BID #180 tabs 04/27/24 metformin 850 mg tablet 850 mg PO TID #240 tabs 05/11/24 ipratropium 0.5 mg-albuterol 3 mg 3 ml inhalation Q6H PRN shortness 05/19/24 (2.5 mg base)/3 mL nebulization of breath or wheezing #180 mL soln albuterol sulfate 90 mcg/actuation 1 puff inhalation Q4-6H #8.5 grams 05/25/24 aerosol inhaler insulin glargine 100 unit/mL (3 See Rx Instructions .Route 05/31/24 mL) subcutaneous pen (Lantus .COMPLEX #15 mL Solostar U-100 Insulin) amoxicillin 875 mg-potassium 1 tab PO BID #14 tabs 06/05/24 clavulanate 125 mg tablet Allergies Allergy/AdvReac Type Severity Reaction Status Date / Time No Known Drug Allergies Allergy Verified 06/14/24 15:17 Review of Systems Review of Systems ROS Unobtainable: All systems reviewed & are unremarkable except as noted in HPI and below Patient History Medical History Urinary retention COPD exacerbation History of urinary retention Hyperlipidemia History of nephrolithiasis Left nephrolithiasis Urinary retention Recurrent UTI History of prostate cancer Acne Shoulder pain Ankle pain Measles Chicken pox Prostate cancer (~2010) Anemia Benign prostatic hyperplasia GERD (gastroesophageal reflux disease) Hypertension Type 2 diabetes mellitus Parkinson's disease Congestive heart failure Surgical History S/P deep brain stimulator placement (11/2019) History of prostate biopsy Anesthesia History of knee surgery Kidney stones Family History Father Stroke Hypertension Bacterial UTI Mother Cancer Sister Hypertension Aunt Diabetes mellitus Uncle Kidney stones Social History marital status: number of children: 3 household members: spouse and family alcohol intake: never Type(s) of exercise: walking frequency: 1-2 times per week tobacco type: cigarettes alcohol intake frequency: holidays/special occasions only Exam Narrative Exam Narrative: GENERAL: [74] year old patient appears stated age. Well-developed patient, in mild distress. HEAD: Atraumatic. Normocephalic. EYES: Pupils equal round and reactive. Extraocular motions intact. No scleral icterus. No injection or drainage. ENT: Nose without bleeding, purulent drainage. Throat without erythema, tonsillar hypertrophy or exudate. Airway patent. NECK: Trachea midline. Non tender CARDIOVASCULAR: Regular rate and rhythm without murmurs, gallops, or rubs. RESPIRATORY: Clear to auscultation. Breath sounds equal bilaterally. No wheezes, rales, or rhonchi. GASTROINTESTINAL: Abdomen soft, non-tender, nondistended. EXTREMITIES: No edema or joint tenderness. BACK: Nontender without deformity or crepitance. No flank tenderness. NEURO: AOx3. GCS 15 moving extremities spontaneously in all directions SKIN: No rash or erythema of visible areas Initial Vital Signs Initial Vital Signs: Vital Signs Temperature 98.0 F 06/22/24 15:05 Pulse Rate 72 06/22/24 15:05 Respiratory Rate 16 06/22/24 15:05 Blood Pressure 232/102 H 06/22/24 15:05 Pulse Oximetry 100 06/22/24 15:05 Oxygen Delivery Method Room Air 06/22/24 15:05 Course Orders Ordered: ED Orders 06/22/24 15:05 Complete Blood Count AUTO DIFF Stat Comprehensive Metabolic Panel Stat Lactate (Lactic Acid) Stat Lipase Stat Magnesium Stat NT-proBNP (BNP-Adult 18+) Stat PTT Partial Thromboplastin Jeremiah Stat Prothrombin Time INR Stat Troponin & CK Cardiac Panel Stat 06/22/24 15:27 XR chest 1V Stat EKG-12 Lead Stat RT Consult Eval and Treat NOW 06/22/24 16:21 Urine Culture Stat Urine Microscopic Stat 06/22/24 20:22 Lactate (Lactic Acid) Stat Discontinued Medications Aspirin (Aspirin 81 Mg Chew Tab) 324 mg PO NOW ONE Stop: 06/22/24 15:27 Last Admin: 06/22/24 21:41 Dose: Not Given Documented By: AB Hydralazine HCl (Hydralazine 20 Mg/Ml Vial) 10 mg IV NOW ONE Stop: 06/22/24 18:42 Last Admin: 06/22/24 18:46 Dose: Not Given Documented By: RB Hydralazine HCl (Hydralazine 20 Mg/Ml Vial) 10 mg IV NOW ONE Stop: 06/22/24 21:40 Last Admin: 06/22/24 21:45 Dose: 10 mg Documented By: JEWELL Sodium Chloride (Normal Saline 0.9%) 1,000 mls @ 1,000 mls/hr IV BOLUS ONE Stop: 06/22/24 18:05 Last Infusion: 06/22/24 18:02 Dose: Infused Documented By: Admin: 06/22/24 17:11 Dose: 1,000 mls/hr Documented By: AI Sodium Chloride (Normal Saline 0.9%) 1,000 mls @ 1,000 mls/hr IV BOLUS ONE Stop: 06/22/24 19:43 Last Infusion: 06/22/24 22:22 Dose: Infused Documented By: Infusion: 06/22/24 18:55 Dose: 0 mls/hr Documented By: Admin: 06/22/24 18:51 Dose: 1,000 mls/hr Documented By: SB Losartan Potassium (Losartan 50 Mg Tablet) 50 mg PO NOW ONE Stop: 06/22/24 18:45 Last Admin: 06/22/24 18:50 Dose: 50 mg Documented By: SB Vital Signs Vital signs: Vital Signs - 8 hr 06/22/24 15:05 06/22/24 15:49 06/22/24 15:51 Temperature 98.0 F Pulse Rate 72 69 70 Respiratory Rate 16 23 20 Blood Pressure 232/102 H Pulse Oximetry 100 99 99 Oxygen Delivery Method Room Air 06/22/24 15:51 06/22/24 16:00 06/22/24 16:00 Temperature Pulse Rate 69 Respiratory Rate 20 Blood Pressure 199/96 H 228/102 H Pulse Oximetry 99 Oxygen Delivery Method 06/22/24 16:02 06/22/24 16:02 06/22/24 16:30 Temperature Pulse Rate 70 71 Respiratory Rate 21 21 Blood Pressure 211/100 H Pulse Oximetry 98 99 Oxygen Delivery Method 06/22/24 16:31 06/22/24 16:31 06/22/24 17:00 Temperature Pulse Rate 71 74 Respiratory Rate 20 20 Blood Pressure 199/88 H Pulse Oximetry 97 99 Oxygen Delivery Method 06/22/24 17:01 06/22/24 17:01 06/22/24 17:30 Temperature Pulse Rate 74 75 Respiratory Rate 20 21 Blood Pressure 206/86 H Pulse Oximetry 99 99 Oxygen Delivery Method 06/22/24 17:30 06/22/24 18:00 06/22/24 18:00 Temperature Pulse Rate 77 Respiratory Rate 21 Blood Pressure 222/91 H 221/96 H Pulse Oximetry 99 Oxygen Delivery Method 06/22/24 18:30 06/22/24 18:30 06/22/24 18:50 Temperature Pulse Rate 78 79 Respiratory Rate 20 Blood Pressure 210/92 H 210/92 H Pulse Oximetry 98 Oxygen Delivery Method 06/22/24 19:00 06/22/24 19:00 06/22/24 19:16 Temperature Pulse Rate 79 78 Respiratory Rate 22 18 Blood Pressure 237/102 H Pulse Oximetry 98 97 Oxygen Delivery Method 06/22/24 19:16 06/22/24 19:30 06/22/24 19:30 Temperature Pulse Rate 79 Respiratory Rate 20 Blood Pressure 193/88 H 203/85 H Pulse Oximetry 96 Oxygen Delivery Method 06/22/24 20:00 06/22/24 20:00 06/22/24 20:30 Temperature Pulse Rate 77 75 Respiratory Rate 21 19 Blood Pressure 201/126 H Pulse Oximetry 97 97 Oxygen Delivery Method 06/22/24 20:31 06/22/24 20:31 06/22/24 21:00 Temperature Pulse Rate 75 74 Respiratory Rate 18 20 Blood Pressure 210/92 H Pulse Oximetry 97 97 Oxygen Delivery Method 06/22/24 21:00 06/22/24 21:30 06/22/24 21:31 Temperature Pulse Rate 72 72 Respiratory Rate 19 15 Blood Pressure 196/94 H Pulse Oximetry 96 96 Oxygen Delivery Method 06/22/24 21:31 06/22/24 21:45 06/22/24 22:00 Temperature Pulse Rate 88 71 Respiratory Rate 19 Blood Pressure 201/84 H 201/84 H Pulse Oximetry 97 Oxygen Delivery Method 06/22/24 22:01 06/22/24 22:01 06/22/24 22:23 Temperature Pulse Rate 71 71 Respiratory Rate 27 H Blood Pressure 153/68 H 153/68 H Pulse Oximetry 97 Oxygen Delivery Method Room Air Medical Decision Making Lab Data 06/22/24 15:05 06/22/24 15:05 Labs: Lab Results 06/22/24 06/22/24 06/22/24 Range/Units 15:05 16:21 18:03 WBC 8.5 (4.5-11.0) X10^3/uL RBC 4.58 (4.5-5.9) X10^6/uL Hgb 13.2 L (13.5-17.5) g/dL Hct 38.8 L (41-53) % MCV 84.8 (80-100) fL MCH 28.8 (26-34) PG MCHC 34.0 (30-36) % RDW 16.4 H (11.6-14.8) % Plt Count 255 (150-400) X10^3/uL Neut % (Auto) 64.3 (50-75) % Lymph % (Auto) 24.7 L (25-40) % [place] % (Auto) 6.5 (3-14) % Eos % (Auto) 3.1 (2-4) % Baso % (Auto) 1.4 (0-2) % Neut # (Auto) 5400 (4631-9384) /uL Lymph # (Auto) 2100 (5107-1962) /uL [place] # (Auto) 500 (0-900) /uL Eos # (Auto) 300 (0-450) /uL Baso # (Auto) 100 (0-100) /uL PT 10.5 (9.4-12.5) SECONDS INR 0.9 (0.9-1.3) APTT 32 (25.1-36.5) SECONDS Sodium 135 L (137-145) mmol/L Potassium 4.2 (3.4-5.1) mmol/L Chloride 103 (98-107) mmol/L Carbon Dioxide 23 (22-32) mmol/L BUN 20 (9-20) mg/dL Creatinine 0.84 (0.66-1.25) mg/dL Estimated GFR > 60 (>60) mL/min BUN/Creatinine Ratio 23.8 H (6-22) Glucose 230 H (70-99) mg/dL Lactate 3.0 H 2.6 H (0.7-2.1) mmol/L Calcium 9.5 (8.4-10.2) mg/dL Magnesium 1.7 (1.6-2.3) mg/dL Total Bilirubin 0.7 (0.2-1.3) mg/dL AST 15 L (17-59) IU/L ALT 15 (<50) IU/L Alkaline Phosphatase 102 (38-126) U/L Total Creatine Kinase 38 L (55-170) U/L Troponin I < 0.012 (0.01-0.034) ng/mL NT-Pro-B Natriuret Pep 249 (<450) pg/mL Total Protein 7.2 (6.3-8.2) g/dL Albumin 4.2 (3.5-5.0) g/dL Globulin 3.0 (1.7-4.1) g/dL Albumin/Globulin Ratio 1.4 (1.0-2.8) Lipase 94 (23-300) U/L Urine RBC 1-5/hpf (0-5/HPF) Urine WBC 10-30/hpf H (0-5/HPF) Ur Squamous Epith Cells 1-5 /hpf (0-5/HPF) Urine Bacteria Moderate (10-30) H (None) Ur Culture Indicated? Specimen cultured Vol Urine Centrifuged 10ml (spun) /16/ Range/Units 20:22 WBC (4.5-11.0) X10^3/uL RBC (4.5-5.9) X10^6/uL Hgb (13.5-17.5) g/dL Hct (41-53) % MCV (80-100) fL MCH (26-34) PG MCHC (30-36) % RDW (11.6-14.8) % Plt Count (150-400) X10^3/uL Neut % (Auto) (50-75) % Lymph % (Auto) (25-40) % [place] % (Auto) (3-14) % Eos % (Auto) (2-4) % Baso % (Auto) (0-2) % Neut # (Auto) (4550-2723) /uL Lymph # (Auto) (2914-1714) /uL [place] # (Auto) (0-900) /uL Eos # (Auto) (0-450) /uL Baso # (Auto) (0-100) /uL PT (9.4-12.5) SECONDS INR (0.9-1.3) APTT (25.1-36.5) SECONDS Sodium (137-145) mmol/L Potassium (3.4-5.1) mmol/L Chloride (98-107) mmol/L Carbon Dioxide (22-32) mmol/L BUN (9-20) mg/dL Creatinine (0.66-1.25) mg/dL Estimated GFR (>60) mL/min BUN/Creatinine Ratio (6-22) Glucose (70-99) mg/dL Lactate 2.0 (0.7-2.1) mmol/L Calcium (8.4-10.2) mg/dL Magnesium (1.6-2.3) mg/dL Total Bilirubin (0.2-1.3) mg/dL AST (17-59) IU/L ALT (<50) IU/L Alkaline Phosphatase (38-126) U/L Total Creatine Kinase (55-170) U/L Troponin I (0.01-0.034) ng/mL NT-Pro-B Natriuret Pep (<450) pg/mL Total Protein (6.3-8.2) g/dL Albumin (3.5-5.0) g/dL Globulin (1.7-4.1) g/dL Albumin/Globulin Ratio (1.0-2.8) Lipase (23-300) U/L Urine RBC (0-5/HPF) Urine WBC (0-5/HPF) Ur Squamous Epith Cells (0-5/HPF) Urine Bacteria (None) Ur Culture Indicated? Vol Urine Centrifuged Urine Dip Bedside Urine Glucose 500 mg/dl Bedside Urine Bilirubin - Negative Bedside Urine Ketone - Negative Urine Specific [place] 1.015 Bedside Urine Occult Blood +/- Bedside Urine pH 6 Bedside Urine Protein +/- 15 Bedside Urine Urobilinogen - Negative Bedside Urine Nitrite - Negative Bedside Urine Leukocytes ++ 125 Esterase Point of care testing: Urine Dip Bedside Urine Glucose 500 mg/dl Bedside Urine Bilirubin - Negative Bedside Urine Ketone - Negative Urine Specific [place] 1.015 Bedside Urine Occult Blood +/- Bedside Urine pH 6 Bedside Urine Protein +/- 15 Bedside Urine Urobilinogen - Negative Bedside Urine Nitrite - Negative Bedside Urine Leukocytes ++ 125 Esterase MDM Narrative Medical decision making narrative: All lab work, vital signs, nurse triage note, medication list, EKG, chest x-ray, all reviewed. chest x-ray did not any acute process. troponin was normal BNP was normal patient was given hydralazine 10 mg IV x1 blood pressure on recheck was down to 160s over 80s. Advised patient to retake his blood pressure medicines as previously directed and if it was still elevated to call the primary care doctor on-call for further guidance or to return with new or worsening symptoms Discharge Plan Departure Patient Disposition: Home Clinical Impression: Elevated blood pressure reading Instructions: DI for High Blood Pressure Activity Restrictions/Additional Instructions: Return with new or worsening symptoms. Take your blood pressure medicines as previously directed. Follow up with family doctor on Tuesday for recheck Prescriptions: No Action atorvastatin 10 mg tablet 10 mg PO DAILY Qty: 90 3RF finasteride [Proscar] 5 mg tablet 5 mg PO DAILY Qty: 10 0RF Rx Instructions: short term for mail in omeprazole 20 mg capsule,delayed release(DR/EC) 20 mg PO DAILY Qty: 90 1RF (DME) Comfort Touch Ult Thin Lancets 31 gauge misc See Rx Instructions .Route Qty: 100 2RF Rx Instructions: use to check blood sugars 1-2 times per day (DME) Blood Glucose Test Strip See Rx Instructions .Route Qty: 50 5RF Rx Instructions: use to check blood sugars 1-2 times per day (DME) blood-glucose meter Misc See Rx Instructions .Route Qty: 1 0RF Rx Instructions: use to check blood sugars 1-2 times per day tamsulosin 0.4 mg capsule 0.8 mg PO DAILY Qty: 180 3RF gabapentin 100 mg capsule 100 mg PO 3XD Qty: 270 1RF potassium citrate 10 mEq (1,080 mg) tablet extended release 10 meq PO BID Qty: 180 1RF (DME) pen needle, diabetic [BD Reshma 2nd Gen Pen Needle] 32 gauge x 5/32 needle See Rx Instructions .ROUTE .MEDSUPPLY Qty: 100 3RF Rx Instructions: use to inject insulin BID metformin 850 mg tablet 850 mg PO TID Qty: 240 3RF insulin glargine [Lantus Solostar U-100 Insulin] 100 unit/mL (3 mL) insulin pen See Rx Instructions .ROUTE .COMPLEX Qty: 15 3RF Rx Instructions: 60 in morning, 64 units at bedtime amoxicillin-pot clavulanate 875-125 mg tablet 1 tab PO BID Qty: 14 0RF losartan 50 mg tablet 50 mg PO DAILY potassium chloride 10 mEq tablet extended release 10 meq PO BID temazepam 15 mg capsule 15 mg PO BEDTIME PRN selegiline HCl 5 mg tablet 5 mg PO BID Rx Instructions: administer with breakfast and lunch timolol maleate 0.25 % drops EYE-BOTH DAILY albuterol sulfate 90 mcg/actuation HFA aerosol inhaler 1 puff inhalation Q4-6H Qty: 8.5 6RF aspirin [Adult Low Dose Aspirin] 81 mg tablet,delayed release (DR/EC) 81 mg PO DAILY amlodipine 2.5 mg tablet 2.5 mg PO DAILY Qty: 90 3RF ipratropium-albuterol 0.5 mg-3 mg(2.5 mg base)/3 mL solution for nebulization 3 ml inhalation Q6H PRN (Reason: shortness of breath or wheezing) Qty: 180 0RF latanoprost 0.005 % drops 1 drp DAILY acetaminophen [Acetaminophen Extra Strength] 500 mg Tablet 500 mg PO Q6H PRN (Reason: Pain (Scale Score 4-6)) cranberry fruit 400 mg Capsule 400 mg PO DAILY Rx Instructions: administer with a meal carbidopa-levodopa 25-100 mg tablet See Rx Instructions .ROUTE .COMPLEX Patient Comments: extended release Rx Instructions: take 3 tabs at 0600, 2.5 tabs at 1000, 3 tabs at 1400, 2.5 tabs at 1800, 2.5 tabs at 2200 entacapone 200 mg Tablet 100 mg PO 5XD methenamine hippurate 1 gram tablet 1 g PO BID Qty: 180 3RF lidocaine HCl [Lidocaine Viscous] 2 % solution 1 applic mucous membrane BID-TID PRN (Reason: pain) Qty: 100 0RF Referrals: Ravindra Goldsmith, [Primary Care Provider] - Stand Alone Forms: Patient Portal/API/Survey
[2024-06-22] MEDS: LOSARTAN 50 MG TABLET PO (18:50)
--- NOTE | 2024-06-22 18:56 | PC.NURSE ---
This RN goes to medicate patient. He is tachypneic at a rate of 26 with abdominal breathing. LS of fine crackles and expiratory wheezes throughout anterior cain. Reports hx of COPD. 97% on RA. States, I'm fine. RT called and Provider Madan made aware. New orders to hold BOLUS of NS at this time. Fluids paused as per APR.
[2024-06-22] MEDS: hydrALAZINE 20 MG/ML VIAL 10 MG IV (21:45)
== END 2024-06-22 23:00 | disposition home or self-care (01) ==
PROVIDERS: Emergency Medicine; Emergency Provider Family Medicine; Family Provider Family Medicine; PCP Family Medicine
DX: I10 Essential (primary) hypertension (principal); G20.A1 Parkinson's disease without dyskinesia, without mention of fluctuations; J44.9 Chronic obstructive pulmonary disease, unspecified
CPT/HCPCS: 36415; 71045; 80053; 81003; 81015; 82550; 83605; 83690; 83735; 83880; 84484; 85025; 85610; 85730; 87077; 87086; 87186; 93005; 96361; 96374; 99284; J0360

== ENCOUNTER → 2024-06-28 13:19 | Outpatient (CLI) | payer MEDICARE, OTHER, SELFPAY ==
[2023-05-15 16:05] VITALS: BMI 34.9
[2023-05-15 20:39] VITALS: PULSE 79; RESP 22; O2SAT 94
[2024-06-28 13:31] LABS: Appearance Urine UA CLOUDY; Bilirubin Urine UA NEGATIVE (NEGATIVE); Color Urine UA ORANGE; Glucose Urine UA NEGATIVE (Negative); Ketones Urine UA 1+ (NEGATIVE); Leukocyte Esterase Urine UA 2+ (NEGATIVE); Nitrite Urine UA POSITIVE (Negative); Occult Blood Urine UA 3+ (Negative); Protein Urine UA 3+ (Negative); Specific Gravity Urine UA >=1.030 (1.000-1.035); pH Urine UA 5.5 (4.5-8.0)
[2024-06-28 13:33] LABS: Bacteria Urine Many (>30); Culture Indicated Urine Specimen Cultured; RBC Urine 10-30/HPF (0-5/HPF); Squamous Epithelial Cell Urine None Seen (0-5/HPF); Urine Volume 10mL (spun); WBC Urine 10-30/HPF (0-5/HPF)
== END ==
PROVIDERS: Family Provider Family Medicine; PCP Family Medicine; Visit Provider Urology
DX: N39.0 Urinary tract infection, site not specified (principal)
CPT/HCPCS: 81001; 87077; 87086; 87186

== ENCOUNTER → 2024-07-18 15:11 | Outpatient (CLI) | payer MEDICARE, OTHER, SELFPAY ==
[2023-05-15 16:05] VITALS: BMI 34.9
[2023-05-15 20:39] VITALS: PULSE 79; RESP 22; O2SAT 94
[2024-07-18 15:37] LABS: Appearance Urine UA SL CLOUDY; Bilirubin Urine UA NEGATIVE (NEGATIVE); Color Urine UA YELLOW; Glucose Urine UA 3+ g/dL (Negative); Ketones Urine UA NEGATIVE (NEGATIVE); Leukocyte Esterase Urine UA 2+ (NEGATIVE); Nitrite Urine UA POSITIVE (Negative); Occult Blood Urine UA TRACE-INTACT (Negative); Protein Urine UA TRACE (Negative); Urobilinogen Urine UA 0.2 E.U./dL (0.2)
[2024-07-18 15:43] LABS: Bacteria Urine Many (>30); Culture Indicated Urine Specimen Cultured; RBC Urine 0-1/HPF (0-5/HPF); Squamous Epithelial Cell Urine 5-10 /HPF (0-5/HPF); Urine Volume 10mL (spun); WBC Urine 30-100/HPF (0-5/HPF)
== END ==
PROVIDERS: Family Provider Family Medicine; PCP Family Medicine; Referring Provider Family Medicine; Visit Provider Family Medicine
DX: R82.79 Other abnormal findings on microbiological examination of urine (principal); Z87.440 Personal history of urinary (tract) infections
CPT/HCPCS: 81003; 81015; 87077; 87086; 87186

== ENCOUNTER → 2024-07-26 13:18 | Outpatient (ROUT) | payer MEDICARE, OTHER, SELFPAY ==
[2023-05-15 16:05] VITALS: BMI 34.9
[2023-05-15 20:39] VITALS: PULSE 79; RESP 22; O2SAT 94
[2024-07-26 13:25] LABS: Appearance Urine UA CLEAR; Bilirubin Urine UA NEGATIVE (NEGATIVE); Color Urine UA YELLOW; Glucose Urine UA 1+ g/dL (Negative); Ketones Urine UA 1+ (NEGATIVE); Leukocyte Esterase Urine UA 2+ (NEGATIVE); Nitrite Urine UA NEGATIVE (Negative); Occult Blood Urine UA 3+ (Negative); Protein Urine UA 2+ (Negative); Specific Gravity Urine UA 1.025 (1.000-1.035); Urobilinogen Urine UA 0.2 E.U./dL (0.2); pH Urine UA 5.5 (4.5-8.0)
[2024-07-26 13:35] LABS: Urine Volume 10mL (spun)
[2024-07-26 13:36] LABS: Bacteria Urine Many (>30); Culture Indicated Urine Specimen Cultured; RBC Urine 30-100/HPF (0-5/HPF); Squamous Epithelial Cell Urine 0-1 /HPF (0-5/HPF); WBC Urine 30-100/HPF (0-5/HPF); White Blood Cell Casts Urine 0-1/LPF
== END ==
PROVIDERS: Family Provider Family Medicine; PCP Family Medicine; Visit Provider Urology
DX: N39.0 Urinary tract infection, site not specified (principal)
CPT/HCPCS: 81001; 87077; 87086

== ENCOUNTER → 2024-07-27 15:20 | Outpatient (CLI) | payer MEDICARE, OTHER, SELFPAY ==
[2023-05-15 16:05] VITALS: BMI 34.9
[2023-05-15 20:39] VITALS: PULSE 79; RESP 22; O2SAT 94
== END ==
PROVIDERS: Family Provider Family Medicine; PCP Family Medicine; Referring Provider Family Medicine; Visit Provider Family Medicine
DX: N39.0 Urinary tract infection, site not specified (principal)
CPT/HCPCS: 87077; 87086; 87186

== ENCOUNTER → 2024-08-29 12:06 | Outpatient (CLI) | payer MEDICARE, OTHER, SELFPAY ==
[2023-05-15 16:05] VITALS: BMI 34.9
[2023-05-15 20:39] VITALS: PULSE 79; RESP 22; O2SAT 94
[2024-08-29 12:31] LABS: Appearance Urine UA CLOUDY; Bilirubin Urine UA NEGATIVE (NEGATIVE); Color Urine UA YELLOW; Glucose Urine UA 1+ g/dL (Negative); Ketones Urine UA 1+ (NEGATIVE); Leukocyte Esterase Urine UA 2+ (NEGATIVE); Nitrite Urine UA NEGATIVE (Negative); Occult Blood Urine UA 2+ (Negative); Protein Urine UA 2+ (Negative); Specific Gravity Urine UA 1.015 (1.000-1.035); Urobilinogen Urine UA 1.0 E.U./dL (0.2); pH Urine UA 5.5 (4.5-8.0)
[2024-08-29 12:36] LABS: Culture Indicated Urine Specimen Cultured
== END ==
PROVIDERS: Family Provider Family Medicine; PCP Family Medicine; Visit Provider Urology
DX: N39.0 Urinary tract infection, site not specified (principal)
CPT/HCPCS: 81001; 87077; 87086; 87186

== ENCOUNTER → 2024-10-16 14:00 | Outpatient (CLI) | payer MEDICARE, OTHER, SELFPAY ==
[2023-05-15 16:05] VITALS: BMI 34.9
[2023-05-15 20:39] VITALS: PULSE 79; RESP 22; O2SAT 94
--- NOTE | 2024-10-16 14:01 | DI.ECHO.S_ITS ---
[place] [facility]---------+ [facility] : : [address] : : [place] : : [id number] : : Phone: [phone] Echocardiogram Report + + :Name: SHASHANK MENDEZ Study Date: 10/16/2024 Height: 66 in : :[facility] ReadingLocation: Weight: 223 lb : : Gender: Male BSA: 2.1 m2 : :: 1950 Age: 74 yrs BP: 168/86 mmHg: :Reason For Study: CHF : :Ordering Physician: RUBI, : :MOOK Performed By: Salinas Girard : :Referring: MOOK VENEGAS : + + Interpretation Summary The study quality was technically difficult. Left ventricular wall thickness is mildly increased. The ejection fraction is estimated to be 60-65%. Normal diastolic function. The right ventricle is normal in size and function. No obvious valvular abnormalities. Pulmonary artery pressures cannot be estimated because of the lack of a measurable TR jet velocity. Compared to the prior study 05/22/2024, no change. Procedure: A two-dimensional transthoracic echocardiogram with color flow and Doppler was performed. Comparison is made with the echocardiogram of 05/22/2024. The study quality was technically difficult. The heart rate ranged between 75-86 bpm during the study. The patient was in normal sinus rhythm during the exam. Left Ventricle: The left ventricle is normal in size. Left ventricular wall thickness is mildly increased. Left ventricular systolic function is normal. The ejection fraction is estimated to be 60-65%. This is unchanged compared to the previous study. Regional wall motion abnormalities cannot be excluded due to limited visualization. Normal diastolic function. Right Ventricle: The right ventricle is normal in size and function. Atria: The left atrial size is normal. Right atrial size is normal. There is no Doppler evidence for an interatrial shunt. Mitral Valve: The mitral valve leaflets appear to open well. There is no mitral valve stenosis. There is trace mitral regurgitation. Aortic Valve: The aortic valve is trileaflet. There is mild aortic valve sclerosis. There is no aortic valve stenosis. No aortic regurgitation is present. Tricuspid Valve: The tricuspid valve is not well visualized, but is grossly normal. There is trace tricuspid regurgitation. Pulmonary artery pressures cannot be estimated because of the lack of a measurable TR jet velocity. Pulmonic Valve: The pulmonic valve is not well visualized. There is trace pulmonic regurgitation. Great Vessels: The aortic root is normal size. The ascending aorta could not be visualized. The aortic arch could not be visualized. The pulmonary is not well visualized. The inferior vena cava was not visualized. Pericardium/ Pleura There is no pericardial effusion. MMode/2D Measurements & Calculations LVIDd: 5.1 cm LVOT diam: 2.2 cm LVIDs: 3.3 cm Ao root diam: 4.1 cm FS: 35.9 % IVSd: 1.2 cm LVPWd: 1.2 cm LV carrera. diameter/BSA (cm/m^2): 2.4 LV sys. diameter/BSA (cm/m^2): 1.6 LA A2 area: 16.6 cm2 RA long axis: 5.1 cm LA A4 area: 22.2 cm2 RA area: 13.0 cm2 LA length (vol): 5.7 cm RA vol: 28.2 ml LA vol: 54.4 ml RA : 13.5 ml/m2 LA vol index: 26.0 ml/m2 RVD1 (basal): 2.0 cm RVD2 (mid): 2.0 cm TAPSE: 1.5 cm Doppler Measurements & Calculations Ao V2 max: 111.7 cm/sec LVOT Max Aashish: 87.1 cm/sec Ao V2 mean: 80.8 cm/sec LV V1 max P.0 mmHg Ao max P.0 mmHg LV V1 VTI: 16.6 cm Ao mean P.8 mmHg SIL(I,D): 2.9 cm2 Ao V2 VTI: 22.4 cm SIL(V,D): 3.1 cm2 sev ratio: 0.74 SIL indexed to BSA (cm^2/m^2): 1.4 MV E max aashish: 61.5 cm/sec PA V2 max: 88.4 cm/sec MV A max aashish: 97.3 cm/sec PA V2 mean: 66.6 cm/sec MV E/A: 0.63 PA mean P.9 mmHg Med Peak E' Aashish: 5.6 cm/sec PA pr(Accel): 27.6 mmHg E/E' med: 11.0 Lat Peak E' Aashish: 7.1 cm/sec E/E' lat: 8.7 E/e' average: 9.8 MV dec time: 0.20 sec SV(OT): 65.1 ml Reading Physician:03:16 PM
== END ==
PROVIDERS: PCP Family Medicine; Referring Provider Orthopaedic Surgery; Visit Provider Orthopaedic Surgery
DX: I35.8 Other nonrheumatic aortic valve disorders (principal); I50.9 Heart failure, unspecified
CPT/HCPCS: 93306

== ENCOUNTER 2024-10-23 17:46 | Inpatient (IN) | payer MEDICARE, OTHER, SELFPAY ==
[2023-05-15 16:05] VITALS: BMI 34.9
[2023-05-15 20:39] VITALS: PULSE 79; RESP 22; O2SAT 94
[2024-10-23] VITALS (28 sets, daily range): BP systolic 101–154; BP diastolic 52–84; PULSE 73–126; RESP 18–77; TEMP 30.9–38.6; O2SAT 86–100; BMI 33.7
--- NOTE | 2024-10-23 17:57 | DI.RAD.S_ITS ---
PROCEDURE: XR CHEST 1V INDICATIONS: dyspnea TECHNIQUE: One view of the chest was acquired. COMPARISON: [facility], CR, XR CHEST 1V, 06/22/2024, 15:23. FINDINGS: Surgical changes and devices: Right chest wall generator. Lungs and pleura: Lungs are clear. No pleural effusions or pneumothorax. Mediastinum: Mediastinal contours appear normal. Heart size is normal. Bones and chest wall: No suspicious bony lesions. Overlying soft tissues appear unremarkable. IMPRESSION: No acute cardiopulmonary abnormality is seen. Approved by: Ada De Jesus M.D.,Ph.D. on 10/23/2024 at 19:05
[2024-10-23 17:58] LABS: Base Excess VBG -5.6 mmol/L (0-4); HCO3 VBG 19 mmol/L (24-28); Oxygen Saturation VBG 76 % (70-75); PCO2 VBG 34.2 mmHg (45-50); PO2 VBG 42 mmHg (35-45); Total CO2 VBG 18 mmol/L (24-29); pH VBG 7.36 (7.33-7.43)
--- NOTE | 2024-10-23 17:58 | EKG_ITS ---
[facility] [address] [place] [address] Test Date: 2024-10-23 Pat Name: Sarbjit Mayen Department: [facility] Room: Gender: Male Epic [place] Specialist: ROSA : 1950 Requested By: Order Number: [id number] Reading MD: Andres Granado Measurements Intervals [place] Rate: 105 P: -2 OR: 148 QRS: -32 QRSD: 80 T: 48 QT: 340 QTc: 449 Interpretive Statements Sinus tachycardia Left axis deviation Minimal voltage criteria for LVH, may be normal variant ( R in aVL ) ST & T wave abnormality, consider lateral ischemia Electronically Signed On 10-24-2024 7:24:38 PDT by Andres Granado
[2024-10-23] MEDS: methylPREDNISolone succ 125 MG/2 ML VIAL IV (18:04)
[2024-10-23] MEDS: MAGNESIUM SULFATE 2 GM/50 ML PIGGYBACK IV (18:04)
[2024-10-23 18:08] LABS: Add Manual Diff / Slide Review NO; Hematocrit 38.1 % (41-53); Hemoglobin 12.7 g/dL (13.5-17.5); Lymphocytes Absolute Auto 2100 /uL (1100-4500); Mean Corpuscular HGB Conc 33.4 % (30-36); Mean Corpuscular Hemoglobin 29.0 PG (26-34); Mean Corpuscular Volume 86.8 fL (80-100); Platelet Count 254 X10^3/uL (150-400)
[2024-10-23] MEDS: MORPHINE 2 MG/ML INJ IV (18:13)
[2024-10-23] MEDS: ALBUTEROL/IPRATROPIUM 3 ML AMPUL INH ×4 (18:17→21:03)
[2024-10-23 18:25] LABS: Alanine Aminotransferase 15 IU/L (<50); Albumin 4.2 g/dL (3.5-5.0); Albumin Globulin Ratio 1.4 (1.0-2.8); Alkaline Phosphatase 89 U/L (38-126); Blood Urea Nitrogen 17 mg/dL (9-20); Calcium 9.5 mg/dL (8.4-10.2); Carbon Dioxide 14 mmol/L (22-32); Chloride 101 mmol/L (98-107); Estimated Glomerular Filt Rate > 60 mL/min (>60); Globulin 2.9 g/dL (1.7-4.1); Glucose 251 mg/dL (70-99); HEMOLYSIS < 15 (0-50); Lipase 73 U/L (23-300); Magnesium 1.3 mg/dL (1.6-2.3); Potassium 4.5 mmol/L (3.4-5.1); Sodium 132 mmol/L (137-145); Total Protein 7.1 g/dL (6.3-8.2)
[2024-10-23] MEDS: ALBUTEROL 2.5 MG/3 ML NEB (ADULT) INH ×2 (18:25→18:44)
[2024-10-23 18:27] LABS: Lactate (Lactic Acid) 7.3 mmol/L (0.7-2.1)
[2024-10-23 18:36] LABS: NT-proBNP (BNP-Adult 18+) 216 pg/mL (<450); Troponin I < 0.012 ng/mL (0.01-0.034)
--- NOTE | 2024-10-23 18:38 | ED.GENADULT ---
HPI - General Adult General Chief complaint: Shortness of Breath/Dyspnea Stated complaint: SOB -resp failure Time Seen by Provider: 10/23/24 17:48 Source: EMS Mode of arrival: EMS History of Present Illness HPI narrative: 73-year-old man with a history of severe Parkinson's disease wheelchair-bound increasing severity of parkinsonian movement, prostate cancer with the acute urinary retention and chronic Churchill catheter, recurrent urinary tract infection, pacemaker, type 2 diabetes, hypertension history of diastolic heart failure. Presenting in respiratory distress, had an episode similar to this requiring hospitalization in May of 2023 as well as March of 2023 and at that time needed high-flow oxygen due to sepsis with ESBL urinary tract infection. Increasing respiratory symptoms over the last couple of weeks. Medics note that they are called to his home around twice a week frequently to help him get back into his wheelchair after he has fallen out. They describe his respiratory distress as significantly worse than his baseline. Patient is absolutely clear that he does not want to be intubated at all, ever! CPR and cardioversion if needed would be acceptable. Related Data Home Medications ?Medication ?Instructions ?Recorded ?Confirmed latanoprost 0.005 % eye drops 1 drp EYE-BOTH DAILY 06/02/22 10/23/24 aspirin 81 mg tablet,delayed 81 mg PO DAILY 10/21/22 10/23/24 release (Adult Low Dose Aspirin) acetaminophen 500 mg tablet 500 mg PO Q6H PRN Pain (Scale 04/03/23 10/23/24 (Acetaminophen Extra Strength) Score 4-6) carbidopa 25 mg-levodopa 100 mg See Rx Instructions .Route .COMPLEX 04/03/23 10/23/24 tablet cranberry fruit 400 mg capsule 400 mg PO DAILY 04/03/23 10/23/24 entacapone 200 mg tablet 100 mg PO 5XD 05/18/23 10/23/24 potassium chloride 10 mEq 10 meq PO BID 05/25/24 10/23/24 tablet,extended release selegiline HCl 5 mg tablet 5 mg PO BID 05/25/24 10/23/24 temazepam 15 mg capsule 15 mg PO BEDTIME PRN sleep 05/25/24 10/23/24 timolol maleate 0.25 % eye drops 1 drp EYE-BOTH DAILY 05/25/24 10/23/24 Previous Rx's ?Medication ?Instructions ?Recorded lidocaine HCl 2 % mucosal solution 1 applic mucous membrane BID-TID 07/27/23 (Lidocaine Viscous) PRN pain #100 mL atorvastatin 10 mg tablet 10 mg PO DAILY #90 tabs 11/09/23 finasteride 5 mg tablet (Proscar) 5 mg PO DAILY #10 tabs 12/01/23 blood sugar diagnostic (Blood #50 ea 02/16/24 Glucose Test strips) blood-glucose meter #1 ea 02/16/24 lancets 31 gauge (Comfort Touch #100 ea 02/16/24 Ultra Thin Lancets) tamsulosin 0.4 mg capsule 0.8 mg (2 x 0.4 mg) PO DAILY #180 02/20/24 caps amlodipine 2.5 mg tablet 2.5 mg PO DAILY #90 tabs 04/13/24 methenamine hippurate 1 gram tablet 1 g PO BID #180 tabs 04/27/24 metformin 850 mg tablet 850 mg PO TID #240 tabs 05/11/24 albuterol sulfate 90 mcg/actuation 1 puff inhalation Q4-6H #8.5 grams 05/25/24 aerosol inhaler ipratropium 0.5 mg-albuterol 3 mg 3 ml inhalation Q6H PRN shortness 07/16/24 (2.5 mg base)/3 mL nebulization of breath or wheezing #180 mL soln omeprazole 20 mg capsule,delayed 20 mg PO DAILY #90 caps 07/26/24 release albuterol sulfate 2.5 mg/3 mL 2.5 mg (3 mL) inhalation QID #75 mL 07/27/24 (0.083 %) solution for nebulization gabapentin 100 mg capsule 100 mg PO 3XD #270 caps 08/14/24 losartan 50 mg tablet 50 mg PO BID #180 tabs 08/14/24 potassium citrate 10 mEq (1,080 10 meq PO BID #180 tabs 08/14/24 mg) tablet,extended release citric ac 1980.6 mg-glucono 59.4 30 ml irrigation TID #900 mL 08/29/24 mg-mag carb 980.4 mg/30 mL irrig.soln (Renacidin) pen needle, diabetic 32 gauge x #100 ea 10/11/24 (Reshma 2nd Gen Pen Needle) insulin glargine-yfgn 100 unit/mL See Rx Instructions .Route 10/23/24 (3 mL) subcutaneous pen .COMPLEX #60 mL Allergies Allergy/AdvReac Type Severity Reaction Status Date / Time No Known Drug Allergies Allergy Verified 10/23/24 21:52 Review of Systems Review of Systems Narrative: Pertinent positive and negative findings as per HPI Patient History Medical History Urinary retention COPD exacerbation History of urinary retention Hyperlipidemia History of nephrolithiasis Left nephrolithiasis Urinary retention Recurrent UTI History of prostate cancer Acne Shoulder pain Ankle pain Measles Chicken pox Prostate cancer (~2010) Anemia Benign prostatic hyperplasia GERD (gastroesophageal reflux disease) Hypertension Type 2 diabetes mellitus Parkinson's disease Congestive heart failure Surgical History S/P deep brain stimulator placement (11/2019) History of prostate biopsy Anesthesia History of knee surgery Kidney stones Family History Father Stroke Hypertension Bacterial UTI Mother Cancer Sister Hypertension Aunt Diabetes mellitus Uncle Kidney stones Social History marital status: number of children: 3 household members: spouse and family Smoking Status: Former smoker alcohol intake: never Type(s) of exercise: walking frequency: 1-2 times per week tobacco type: cigarettes alcohol intake frequency: holidays/special occasions only Exam Initial Vital Signs Initial Vital Signs: Vital Signs Temperature 101.5 F H 10/23/24 17:51 Pulse Rate 86 10/23/24 17:51 Respiratory Rate 37 H 10/23/24 17:51 Blood Pressure 154/70 H 10/23/24 17:51 Pulse Oximetry 97 10/23/24 17:51 Oxygen Delivery Method CPAP 10/23/24 17:51 General: Chronically ill-appearing, BiPAP, significant respiratory distress with poor overall air movement Respiratory: Lungs with poor overall air movement, slight wheeze no rhonchi no basilar crackles Cardiac: Overriding pulmonary noise, mild tachycardia Abdomen: Soft, obese, no rebound or guarding. Skin: Pale, mildly diaphoretic with work of breathing Neurologic: Dramatic parkinsonian uncontrolled movement making exam, treatment, IV starting, lab draw EKG etcetera all quite difficult to facilitate quickly Extremities: No trauma, chronic venous stasis changes 1+ bilateral lower extremity edema Psych: Significant respiratory distress Course Orders Ordered: ED Orders 10/23/24 17:50 Complete Blood Count AUTO DIFF Stat Comprehensive Metabolic Panel Stat Lactate (Lactic Acid) Stat Lipase Stat Magnesium Stat NT-proBNP (BNP-Adult 18+) Stat Procalcitonin Stat Procalcitonin Stat Troponin I Stat 10/23/24 17:54 Venous Blood Gas Routine 10/23/24 17:56 BiPAP Ventilatory Support RT PROTOCOL 10/23/24 17:57 XR chest 1V Stat 10/23/24 17:58 EKG-12 Lead Stat 10/23/24 18:40 High flow/High humidity nasal NOW 10/23/24 18:57 Blood Culture Stat 10/23/24 19:15 Respiratory Panel (Film Array) Stat Urinalysis and Microscopic Stat Urine Culture Stat 10/23/24 20:20 CT abdomen pelvis w con Stat CT angio chest PE protocol Stat 10/23/24 20:35 Consult to Cardio/Pulmonary Rehabilitation Routine Education, smoking cessation ONGOING RT Consult Eval and Treat Now 10/23/24 22:28 Lactate (Lactic Acid) Routine 10/24/24 07:00 Magnesium DAILY 10/24/24 19:00 Comprehensive Metabolic Panel DAILY 10/25/24 07:00 Magnesium DAILY 10/25/24 19:00 Comprehensive Metabolic Panel DAILY 10/26/24 07:00 Magnesium DAILY 10/26/24 19:00 Comprehensive Metabolic Panel DAILY Acetaminophen (Acetaminophen 325 Mg Tablet) 650 mg PO Q6H PRN PRN Reason: Fever/Mild Pain (1-3) Albuterol (Albuterol 2.5 Mg/3 Ml Neb (Adult)) 2.5 mg INH [id number] PRN PRN Reason: Shortness Of Breath Last Admin: 10/23/24 18:44 Dose: 2.5 mg Documented By: Admin: 10/23/24 18:25 Dose: 2.5 mg Documented By: SIMONE Albuterol (Albuterol 2.5 Mg/3 Ml Neb (Adult)) 2.5 mg INH [id number] PRN PRN Reason: Dyspnea Albuterol/Ipratropium (Albuterol/Ipratropium 3 Ml Ampul) 3 ml INH Q1H PRN PRN Reason: Shortness Of Breath Last Admin: 10/23/24 21:03 Dose: 3 ml Documented By: Admin: 10/23/24 20:08 Dose: 3 ml Documented By: Admin: 10/23/24 19:16 Dose: 3 ml Documented By: SIMONE Aspirin (Aspirin Ec 81 Mg Tablet) 81 mg PO DAILY KONG Atorvastatin Calcium (Atorvastatin 20 Mg Tablet) 10 mg PO BEDTIME KONG Carbidopa/Levodopa (Carbidopa-Levodopa 25/100 Tablet) 3 each PO 0700,1630 KONG Carbidopa/Levodopa (Carbidopa-Levodopa 25/100 Tablet) 2.5 each PO 0130,1230,2030 KONG Enoxaparin Sodium (Enoxaparin 40 Mg/0.4 Ml Syringe) 40 mg SUBCUT DAILY KONG Famotidine (Famotidine 20 Mg/2 Ml Vial) 20 mg IV BID KONG Finasteride (Finasteride 5 Mg Tablet) 5 mg PO DAILY [facility] Gabapentin (Gabapentin 100 Mg Capsule) 100 mg PO TID KONG Sodium Chloride (Normal Saline 0.9%) 1,000 mls @ 75 mls/hr IV CONT KONG Last Admin: 10/23/24 21:09 Dose: 75 mls/hr Documented By: REJI Cefepime HCl 1 gm/ Sodium (Chloride) 100 mls @ 200 mls/hr IV Q12H KONG Vancomycin HCl (Vancomycin) 1,000 mg in 200 mls @ 200 mls/hr IV Q12H [facility] Insulin Glargine (Insulin Glargine 100 Unit/Ml 3ml Pen) 60 unit SUBCUT DAILY [facility] Insulin Glargine (Insulin Glargine 100 Unit/Ml 3ml Pen) 64 unit SUBCUT BEDTIME KONG Latanoprost (Latanoprost 0.005% Ophth 2.5 Ml) 1 drops EYE-BOTH DAILY [facility] Lorazepam (Lorazepam 2 Mg/Ml Inj) 0.25 mg IV Q4HR PRN PRN Reason: Anxiety Losartan Potassium (Losartan 50 Mg Tablet) 50 mg PO BID KONG Methylprednisolone (Methylprednisolone Succ 125 Mg/2 Ml Vial) 40 mg IV Q6HR KONG Morphine Sulfate (Morphine 4 Mg/Ml Inj) 4 mg IV Q1HR PRN PRN Reason: air hunger Last Admin: 10/23/24 20:38 Dose: 4 mg Documented By: Admin: 10/23/24 19:21 Dose: 4 mg Documented By: Admin: 10/23/24 18:42 Dose: 4 mg Documented By: IDANIA Morphine Sulfate (Morphine 4 Mg/Ml Inj) 3 mg IV Q2HR PRN PRN Reason: Pain, Severe (7-10) Naloxone HCl (Naloxone 0.4 Mg/Ml Vial) 0.2 mg IV Q2MIN PRN PRN Reason: Opiate Reversal Non-Formulary Medication (Methenamine Hippurate) 1 gram PO BID KONG Last Admin: 10/23/24 22:51 Dose: Not Given Documented By: Oxycodone HCl (Oxycodone Ir 5 Mg Tablet) 5 mg PO Q3H PRN PRN Reason: Pain, Moderate (4-6) Pantoprazole Sodium (Pantoprazole Dr 20 Mg Tablet) 20 mg PO 0600 KONG Potassium Chloride (Potassium Chloride 10 Meq Tab) 10 meq PO BID KONG Sodium Chloride (Sodium Chloride 0.9% Flush) 10 ml IV BID KONG Tamsulosin HCl (Tamsulosin 0.4 Mg Capsule) 0.8 mg PO DAILY KONG Discontinued Medications Albuterol/Ipratropium (Albuterol/Ipratropium 3 Ml Ampul) 3 ml INH NOW ONE Stop: 10/23/24 17:57 Last Admin: 10/23/24 18:17 Dose: 3 ml Documented By: IDANIA Carbidopa/Levodopa (Carbidopa-Levodopa 25/100 Tablet) 2.5 each PO 1000,1800,2200 [facility] Magnesium Sulfate (Magnesium Sulfate) 2 gm in 50 mls @ 150 mls/hr IV NOW ONE Stop: 10/23/24 18:15 Last Infusion: 10/23/24 19:06 Dose: Infused Documented By: IDANAI Co-signed By: MAGDA Admin: 10/23/24 18:04 Dose: 150 mls/hr Documented By: IDANIA Co-signed By: CE Sodium Chloride (Normal Saline 0.9%) 2,259 mls @ 753 mls/hr 30 ml/kg infuse over 3 hr (2259 ml) IV NOW ONE Stop: 10/23/24 21:39 Last Infusion: 10/23/24 20:05 Dose: Infused Documented By: Admin: 10/23/24 19:12 Dose: 753 mls/hr Documented By: IDANIA Cefepime HCl 2 gm/ Sodium (Chloride) 100 mls @ 200 mls/hr IV NOW ONE Stop: 10/23/24 18:41 Last Infusion: 10/23/24 19:45 Dose: Infused Documented By: Admin: 10/23/24 19:11 Dose: 200 mls/hr Documented By: IDANIA Vancomycin HCl (Vancomycin) 1,000 mg in 200 mls @ 200 mls/hr IV NOW ONE Stop: 10/23/24 19:39 Last Infusion: 10/23/24 21:06 Dose: Infused Documented By: Admin: 10/23/24 19:46 Dose: 200 mls/hr Documented By: REJI Vancomycin HCl 1,500 mg/ (Sodium Chloride) 100 mls @ 100 mls/hr IV Q12H [facility] Vancomycin HCl (Vancomycin) 1,000 mg in 200 mls @ 200 mls/hr IV NOW ONE Stop: 10/23/24 22:44 Methylprednisolone (Methylprednisolone Succ 125 Mg/2 Ml Vial) 125 mg IV NOW ONE Stop: 10/23/24 17:57 Last Admin: 10/23/24 18:04 Dose: 125 mg Documented By: IDANIA Morphine Sulfate (Morphine 2 Mg/Ml Inj) 2 mg IV Q2HR PRN PRN Reason: Pain, Moderate (4-6) Last Admin: 10/23/24 18:13 Dose: 2 mg Documented By: IDANIA Vital Signs Vital signs: Vital Signs - 8 hr 10/23/24 17:51 10/23/24 17:53 10/23/24 17:55 Temperature 101.5 F H Pulse Rate 86 109 H Respiratory Rate 37 H 34 H Blood Pressure 154/70 H Pulse Oximetry 97 93 Oxygen Delivery Method CPAP Fraction of Inspired Oxygen 60 10/23/24 17:57 10/23/24 18:00 10/23/24 18:30 Temperature Pulse Rate 109 H 88 73 Respiratory Rate 32 H Blood Pressure 101/57 L Pulse Oximetry 100 94 86 L Oxygen Delivery Method Room Air Fraction of Inspired Oxygen 10/23/24 18:40 10/23/24 18:49 10/23/24 18:49 Temperature Pulse Rate 86 126 H Respiratory Rate 37 H Blood Pressure 154/70 H 134/60 Pulse Oximetry 97 99 Oxygen Delivery Method Fraction of Inspired Oxygen 10/23/24 19:00 10/23/24 19:02 10/23/24 19:02 Temperature Pulse Rate 112 H 111 H Respiratory Rate 77 H Blood Pressure 101/57 L Pulse Oximetry 95 95 Oxygen Delivery Method Fraction of Inspired Oxygen 10/23/24 19:30 10/23/24 19:30 10/23/24 19:46 Temperature Pulse Rate 112 H 102 H Respiratory Rate 40 H 35 H Blood Pressure 123/84 Pulse Oximetry 98 96 Oxygen Delivery Method Fraction of Inspired Oxygen 10/23/24 19:46 10/23/24 19:52 10/23/24 20:00 Temperature Pulse Rate 102 H 101 H Respiratory Rate 42 H Blood Pressure 147/63 H 147/63 H Pulse Oximetry 96 96 Oxygen Delivery Method High Flow Nasal Cannula Fraction of Inspired Oxygen 10/23/24 20:01 10/23/24 20:01 10/23/24 20:09 Temperature Pulse Rate 101 H 98 H Respiratory Rate 30 H Blood Pressure 134/79 Pulse Oximetry 96 96 Oxygen Delivery Method Fraction of Inspired Oxygen 10/23/24 20:16 10/23/24 20:16 10/23/24 20:30 Temperature Pulse Rate 97 H 97 H Respiratory Rate 30 H 37 H Blood Pressure 109/56 L Pulse Oximetry 96 95 Oxygen Delivery Method Fraction of Inspired Oxygen 10/23/24 20:30 10/23/24 20:43 10/23/24 20:43 Temperature Pulse Rate 96 H Respiratory Rate 28 H Blood Pressure 154/68 H 130/52 L Pulse Oximetry 96 Oxygen Delivery Method Fraction of Inspired Oxygen Medical Decision Making Lab Data 10/23/24 17:50 10/23/24 17:50 Labs: Lab Results 10/23/24 10/23/24 10/23/24 Range/Units 17:50 17:50 17:54 WBC 10.8 (4.5-11.0) X10^3/uL RBC 4.39 L (4.5-5.9) X10^6/uL Hgb 12.7 L (13.5-17.5) g/dL Hct 38.1 L (41-53) % MCV 86.8 (80-100) fL MCH 29.0 (26-34) PG MCHC 33.4 (30-36) % RDW 15.0 H (11.6-14.8) % Plt Count 254 (150-400) X10^3/uL Neut % (Auto) 71.6 (50-75) % Lymph % (Auto) 19.1 L (25-40) % [place] % (Auto) 6.2 (3-14) % Eos % (Auto) 1.6 L (2-4) % Baso % (Auto) 1.5 (0-2) % Neut # (Auto) 7800 H (8431-9833) /uL Lymph # (Auto) 2100 (6451-4759) /uL [place] # (Auto) 700 (0-900) /uL Eos # (Auto) 200 (0-450) /uL Baso # (Auto) 200 H (0-100) /uL VBG pH 7.36 (7.33-7.43) VBG pCO2 34.2 L (45-50) mmHg VBG pO2 42 (35-45) mmHg VBG HCO3 19 L (24-28) mmol/L VBG Total CO2 18 L (24-29) mmol/L VBG O2 Saturation 76 H (70-75) % VBG Base Excess -5.6 L (0-4) mmol/L Sodium 132 L (137-145) mmol/L Potassium 4.5 (3.4-5.1) mmol/L Chloride 101 (98-107) mmol/L Carbon Dioxide 14 L (22-32) mmol/L BUN 17 (9-20) mg/dL Creatinine 0.96 (0.66-1.25) mg/dL Estimated GFR > 60 (>60) mL/min BUN/Creatinine Ratio 17.7 (6-22) Glucose 251 H (70-99) mg/dL Lactate 7.3 H* (0.7-2.1) mmol/L Calcium 9.5 (8.4-10.2) mg/dL Magnesium 1.3 L (1.6-2.3) mg/dL Total Bilirubin 0.7 (0.2-1.3) mg/dL AST 16 L (17-59) IU/L ALT 15 (<50) IU/L Alkaline Phosphatase 89 (38-126) U/L Troponin I < 0.012 (0.01-0.034) ng/mL NT-Pro-B Natriuret Pep 216 (<450) pg/mL Total Protein 7.1 (6.3-8.2) g/dL Albumin 4.2 (3.5-5.0) g/dL Globulin 2.9 (1.7-4.1) g/dL Albumin/Globulin Ratio 1.4 (1.0-2.8) Lipase 73 (23-300) U/L Procalcitonin 0.070 0.071 (<0.5) ng/mL Urine Color Urine Appearance Urine pH (4.5-8.0) Ur Specific [place] (1.000-1.035) Urine Protein (Negative) Urine Glucose (UA) (Negative) g/dL Urine Ketones (NEGATIVE) Urine Occult Blood (Negative) Urine Nitrate (Negative) Urine Bilirubin (NEGATIVE) Urine Urobilinogen (0.2) E.U./dL Ur Leukocyte Esterase (NEGATIVE) Urine RBC (0-5/HPF) Urine WBC (0-5/HPF) Ur Squamous Epith Cells (0-5/HPF) Ur Transition Epith Cell (0-5/HPF) Urine Bacteria (None) Ur Culture Indicated? Micro UA Comment Vol Urine Centrifuged Chlamy pneumoniae PCR (Not Detect) Adenovirus (PCR) (Not Detect) B. pertussis DNA (PCR) (Not Detect) B.parapertussis DNA PCR (Not Detecte) Coronavirus OC43 (PCR) (Not Detect) Coronavirus HKU1 (PCR) (Not Detect) Coronavirus 229E (PCR) (Not Detect) SARS-CoV-2 (PCR) (Not Detecte) Coronavirus NL63 (PCR) (Not Detect) Human Metapneumovir PCR (Not Detect) Influenza Type A (PCR) (Not Detect) Influenza Type B (PCR) (Not Detect) M. pneumoniae (PCR) (Not Detect) Parainfluenza 1 (PCR) (Not Detect) Parainfluenza 2 (PCR) (Not Detect) Parainfluenza 3 (PCR) (Not Detect) Parainfluenza 4 (PCR) (Not Detect) RSV (PCR) (Not Detect) Entero/Rhino (PCR) (Not Detect) 10/23/24 10/23/24 Range/Units 19:15 20:04 WBC (4.5-11.0) X10^3/uL RBC (4.5-5.9) X10^6/uL Hgb (13.5-17.5) g/dL Hct (41-53) % MCV (80-100) fL MCH (26-34) PG MCHC (30-36) % RDW (11.6-14.8) % Plt Count (150-400) X10^3/uL Neut % (Auto) (50-75) % Lymph % (Auto) (25-40) % [place] % (Auto) (3-14) % Eos % (Auto) (2-4) % Baso % (Auto) (0-2) % Neut # (Auto) (6822-3271) /uL Lymph # (Auto) (6438-2922) /uL [place] # (Auto) (0-900) /uL Eos # (Auto) (0-450) /uL Baso # (Auto) (0-100) /uL VBG pH (7.33-7.43) VBG pCO2 (45-50) mmHg VBG pO2 (35-45) mmHg VBG HCO3 (24-28) mmol/L VBG Total CO2 (24-29) mmol/L VBG O2 Saturation (70-75) % VBG Base Excess (0-4) mmol/L Sodium (137-145) mmol/L Potassium (3.4-5.1) mmol/L Chloride (98-107) mmol/L Carbon Dioxide (22-32) mmol/L BUN (9-20) mg/dL Creatinine (0.66-1.25) mg/dL Estimated GFR (>60) mL/min BUN/Creatinine Ratio (6-22) Glucose (70-99) mg/dL Lactate 5.5 H* (0.7-2.1) mmol/L Calcium (8.4-10.2) mg/dL Magnesium (1.6-2.3) mg/dL Total Bilirubin (0.2-1.3) mg/dL AST (17-59) IU/L ALT (<50) IU/L Alkaline Phosphatase (38-126) U/L Troponin I (0.01-0.034) ng/mL NT-Pro-B Natriuret Pep (<450) pg/mL Total Protein (6.3-8.2) g/dL Albumin (3.5-5.0) g/dL Globulin (1.7-4.1) g/dL Albumin/Globulin Ratio (1.0-2.8) Lipase (23-300) U/L Procalcitonin (<0.5) ng/mL Urine Color Yellow Urine Appearance Cloudy Urine pH 5.5 (4.5-8.0) Ur Specific [place] 1.025 (1.000-1.035) Urine Protein 2+ H (Negative) Urine Glucose (UA) 2+ H (Negative) g/dL Urine Ketones 1+ H (NEGATIVE) Urine Occult Blood 3+ H (Negative) Urine Nitrate Negative (Negative) Urine Bilirubin Negative (NEGATIVE) Urine Urobilinogen 0.2 (0.2) E.U./dL Ur Leukocyte Esterase 1+ H (NEGATIVE) Urine RBC >100/hpf H (0-5/HPF) Urine WBC 10-30/hpf H (0-5/HPF) Ur Squamous Epith Cells 1-5 /hpf (0-5/HPF) Ur Transition Epith Cell 0-1/hpf (0-5/HPF) Urine Bacteria Moderate (10-30) H (None) Ur Culture Indicated? Specimen cultured Micro UA Comment Vol Urine Centrifuged 10ml (spun) Chlamy pneumoniae PCR Not detected (Not Detect) Adenovirus (PCR) Not detected (Not Detect) B. pertussis DNA (PCR) Not detected (Not Detect) B.parapertussis DNA PCR Not detected (Not Detecte) Coronavirus OC43 (PCR) Not detected (Not Detect) Coronavirus HKU1 (PCR) Not detected (Not Detect) Coronavirus 229E (PCR) Not detected (Not Detect) SARS-CoV-2 (PCR) Not detected (Not Detecte) Coronavirus NL63 (PCR) Not detected (Not Detect) Human Metapneumovir PCR Not detected (Not Detect) Influenza Type A (PCR) Not detected (Not Detect) Influenza Type B (PCR) Not detected (Not Detect) M. pneumoniae (PCR) Not detected (Not Detect) Parainfluenza 1 (PCR) Not detected (Not Detect) Parainfluenza 2 (PCR) Not detected (Not Detect) Parainfluenza 3 (PCR) Not detected (Not Detect) Parainfluenza 4 (PCR) Not detected (Not Detect) RSV (PCR) Not detected (Not Detect) Entero/Rhino (PCR) Not detected (Not Detect) MDM Narrative Medical decision making narrative: CC: Severe respiratory distress Complicating co-morbidities: Severe Parkinson's disease, COPD, hypertension, type 2 diabetes, history of prostate cancer, urinary retention with chronic Churchill catheter pacemaker placed Data collected from: patient Social determinants of health that may influence the patients condition: Patient is do not intubate however would agree to CPR and shocking if required Medical records reviewed: Most recent echocardiogram 9/9/25 nterpretation Summary The study quality was technically difficult. Left ventricular wall thickness is mildly increased. The ejection fraction is estimated to be 60-65%. Normal diastolic function. The right ventricle is normal in size and function. No obvious valvular abnormalities. Pulmonary artery pressures cannot be estimated because of the lack of a measurable TR jet velocity. Compared to the prior study 05/22/2024, no change. Differential considered: Acute coronary syndrome, bacterial infection, viral infection, severe COPD exacerbation, congestive heart failure, pulmonary embolism Exam documented above, pertinent findings include: Patient is morbidly obese, obvious respiratory distress on BiPAP brought in by medics, diminished air movement throughout all lung cain but minimal wheeze. He is not able to speak in more than 1-2 word sentences. No significant lower extremity edema, no abdominal pain Lab Test results independently reviewed as above. Pertinent findings: CBC shows mild anemia only, no leukocytosis Chemistries show appropriate renal function No sign of heart failure Troponin is not elevated Lactate is significantly elevated at 7.3, patient is not hypotensive Venous blood gas shows a pH is 7.3 with CO2 at 34 Urine is from his catheter is remarkably abnormal and similar to urine is collected August 29 July 26 June 28. We will be cultured however it is not particularly helpful in diagnostic options Independently reviewed EKG: Sinus tachycardia at a rate of 105 nonspecific STT wave changes Imaging studies independently reviewed: Chest x-ray does not show significant disease Treatments: Patient is given 30/kg ideal body weight infusion of normal saline after lactate returns significantly elevated. He is not hypotensive. He does not have an elevated white blood cell count. Elevated lactic acid maybe due to the significant musculoskeletal effort of the dramatic parkinsonian spasmodic movement that he is having He is given multiple DuoNebs, IV magnesium, IV Solu-Medrol. With concerns for infection he is started on cefepime and vancomycin. Source is not yet immediately clear BiPAP was working however he did not like the mask., nasal cannula, OxyMask or all tried. Currently on high-flow 60 L and 40% Significant air hunger which is responding only to morphine. Re-evaluations: Patient seems slightly more comfortable on high-flow oxygen. Parkinsonian movements still quite difficult but better controlled after the morphine. Long discussion with the patient and his regarding code status. Actual POLST form is filled out DNR DNI with full treatment up to those points Discussion: 74-year-old gentleman with significan chronic disease including severe Parkinson's, in a wheelchair, frequently falling out of said wheelchair fortunately does not seem to hurt himself when this happens. Presents with significant respiratory distress. His notes that in the evenings his breathing becomes much more labored but today has been worse. With the musculoskeletal work of the parkinsonian movement he is diaphoretic it is unclear if this is fever, cardiac diaphoresis or simply from musculoskeletal activity. Acute COPD exacerbation: Poor overall air movement, currently on his 4th DuoNeb he has had 2 albuterol nebs still minimal air movement currently more comfortable on high-flow oxygen and saturations are being maintained. He has had Solu-Medrol and IV magnesium. Venous blood gas did not suggest acute CO2 retention. Significant air hunger, 4 mg of morphine has been helpful Abdomen is soft. Still no obvious source for possible infection. Urine is from a chronic indwelling catheter we will need to await culture, await blood cultures, in the meantime he is being treated with antibiotics for presumed urinary tract infection. Does not obviously have congestive heart failure with a low BNP and chest x-ray not suggesting fluid overload. Initial troponin is undetectable, 2nd we will be repeated Pulmonary embolism is considered will see if were able to obtain CT scans of chest abdomen and pelvis, again his ability to hold still given his severe Parkinson's disease is challenging Reviewed with hospitalist patient will be admitted to the CCU. Critical Care Time Critical Care Time Critical Care Time: Yes Total Critical Care Time: 36 Attestation: Critical care time is separate from other billable procedures. There is a high probability of a significant, sudden or life-threatening deterioration that requires my full and direct attention, intervention and personal management. This critical care time includes consultation with family and other consulting doctors, review of records, and interpretation of data from labs, EKGs and imaging as well as managements of acute respiratory failure with continued escalation of Respiratory intervention with out intubation after discussion regarding goals of care Discharge Plan Departure Patient Disposition: Admitted As Inpatient Clinical Impression: COPD exacerbation, Acute UTI Parkinson's disease Qualifiers: Dyskinesia presence: with dyskinesia Fluctuating manifestations: without fluctuating manifestations Qualified Code(s): G20.B1 - Parkinson's disease with dyskinesia, without mention of fluctuations Sepsis Qualifiers: Sepsis type: sepsis due to unspecified organism Sepsis acute organ dysfunction status: unspecified Qualified Code(s): A41.9 - Sepsis, unspecified organism Admit Date/Time: 10/23/24 20:55 Admit Provider: Braeden Madrid
[2024-10-23 18:41] LABS: Procalcitonin 0.070 ng/mL (<0.5)
[2024-10-23] MEDS: MORPHINE 4 MG/ML INJ IV ×3 (18:42→20:38)
[2024-10-23] MEDS: CEFEPIME 2 GM in SODIUM CHLORIDE 0.9% 100 ML IV (19:11)
[2024-10-23] MEDS: SODIUM CHLORIDE 0.9% 2,259 ML 753 ML IV (19:12)
[2024-10-23 19:29] LABS: Appearance Urine UA CLOUDY; Bilirubin Urine UA NEGATIVE (NEGATIVE); Color Urine UA YELLOW; Glucose Urine UA 2+ g/dL (Negative); Ketones Urine UA 1+ (NEGATIVE); Leukocyte Esterase Urine UA 1+ (NEGATIVE); Nitrite Urine UA NEGATIVE (Negative); Occult Blood Urine UA 3+ (Negative); Protein Urine UA 2+ (Negative); Specific Gravity Urine UA 1.025 (1.000-1.035); Urobilinogen Urine UA 0.2 E.U./dL (0.2); pH Urine UA 5.5 (4.5-8.0)
[2024-10-23 19:39] LABS: Procalcitonin 0.071 ng/mL (<0.5); Reflexed Lactate in 2 Hours Y
[2024-10-23 19:40] LABS: Culture Indicated Urine Specimen Cultured
[2024-10-23] MEDS: VANCOMYCIN 1,000 MG/200 ML PIGGYBACK 200 MG IV ×2 (19:46→23:00)
[2024-10-23 20:07] LABS: Coronavirus NL 63 Not Detected (Not Detect); SARS- CoV-2 Not Detected (Not Detecte)
--- NOTE | 2024-10-23 20:20 | DI.CT.S_ITS ---
PROCEDURE: CT ABDOMEN PELVIS W CON INDICATIONS: sepsis, ? source TECHNIQUE: After the administration of intravenous contrast, axial sections acquired from the lung bases to the pubic symphysis. Coronal and sagittal reformats were performed. For radiation dose reduction, the following was used: automated exposure control, adjustment of mA and/or kV according to patient size. COMPARISON: [facility], CT, CT ABDOMEN PELVIS W CON, 04/03/2023, 9:37. FINDINGS: Image quality: Diagnostic. Motion artifacts are seen. Lower Chest: Bibasilar dependent atelectasis is seen. Heart size is enlarged, no pericardial effusion. Small hiatal hernia. ABDOMEN: Liver: No solid mass. Moderate hepatic steatosis. Gallbladder: No radiopaque gallstones or wall thickening. Biliary ducts: No biliary dilation. Pancreas: No ductal dilation. Spleen: Size is within normal limits. Adrenal Glands: No adrenal nodules. Kidneys and Ureters: Tiny 2-3 mm nonobstructing stone is seen in lower pole bilateral kidneys. No hydronephrosis. No solid mass. No complex renal cystic lesion which requires follow up. [id number] bilateral perinephric fat stranding is seen. Stomach and Bowel: There is no bowel obstruction or abnormal bowel wall thickening. Moderate fecal stasis in the colon is seen. No abscess collection. Peritoneum: No abnormal intraperitoneal fluid. No free air. Ventral Wall: No significant ventral hernia. Abdominal Nodes: No retroperitoneal or mesenteric adenopathy by size criteria. Vessels: Aorta and inferior vena cava are normal in size. PELVIS: Pelvic Organs: Post treatment changes are noted in prostate gland. Bladder: Presence of suprapubic tube with diffuse bladder wall thickening concerning for cystitis. No calcified bladder stones or definite bladder wall mass. Pelvic Nodes: No enlarged lymph nodes. Miscellaneous: No inguinal hernias are seen. Bones: No aggressive osseous abnormality. No acute vertebral body compression fractures. Chronic appearing anterior wedge compression deformities are noted at T12 and L2 levels unchanged from prior study. IMPRESSION: 1. Presence of suprapubic catheter with diffuse bladder wall thickening concerning for cystitis. No definite bladder wall mass. No obstructing renal stones or hydronephrosis. Bilateral perinephric fat stranding concerning for pyelonephritis suggest clinical correlation. 2. Moderate constipation. No bowel obstruction or abnormal bowel wall thickening. No abscess collection. No free fluid or free air. 3. Other chronic findings as above. Dictated by: Bernardino Colon M.D. on 10/23/2024 at 21:20 Approved by: Bernardino Colon M.D. on 10/23/2024 at 21:24
--- NOTE | 2024-10-23 20:20 | DI.CT.S_ITS ---
PROCEDURE: CT ANGIO CHEST PE PROTOCOL INDICATIONS: Respiratory failure TECHNIQUE: After the administration of intravenous contrast, 2 mm thick sections acquired from the pulmonary apices to the posterior costophrenic angles. 3-dimensional maximum intensity projection (MIP) coronal and sagittal reformats were then acquired through the thorax. For radiation dose reduction, the following was used: automated exposure control, adjustment of mA and/or kV according to patient size. COMPARISON: [facility], CT, CT ANGIO CHEST PE PROTOCOL, 04/03/2023, 9:37. FINDINGS: Image quality: Diagnostic. Pulmonary arteries: Pulmonary arteries are normal in size, and demonstrate no intraluminal filling defects in main pulmonary trunk and bilateral main pulmonary arteries to suggest central pulmonary embolism. Distal subsegmental branches of bilateral pulmonary arteries are suboptimally opacified, small distal pulmonary emboli cannot be excluded. Lower Neck: No enlarged lymph nodes. Thyroid: No thyroid nodules which require sonographic follow up, per consensus guidelines.. Axillae: No enlarged lymph nodes. Chest Wall: Right chest wall stimulator is seen. Bones: No aggressive appearing bony lesions. Lungs and Pleura: No pneumothorax or pleural effusions. Mild reticular thickening in periphery of bilateral lung cain are seen. No consolidation or suspicious nodules. Heart: Heart size is enlarged. No pericardial effusion. Thoracic Vessels: No aortic aneurysm. Mediastinum and [place]: No enlarged lymph nodes. Esophagus: No wall thickening. Small hiatal hernia. Upper Abdomen: Please correlate with CT of abdomen and pelvis study from the same day. IMPRESSION: 1. Degraded study due to motion artifacts. 2. No central pulmonary emboli. Bilateral subsegmental pulmonary artery branches are suboptimally opacified, small distal pulmonary emboli cannot be excluded. 3. Mild peripheral interstitial reticular thickening concerning for mild min item is. No focal infiltrate, pleural effusion or pneumothorax. 4. Cardiomegaly, no pericardial effusion. No mediastinal or hilar lymphadenopathy. Dictated by: Bernardino Colon M.D. on 10/23/2024 at 21:16 Approved by: Bernardino Colon M.D. on 10/23/2024 at 21:20
[2024-10-23 20:28] LABS: Lactate 2HR (Lactic Acid Rflx) 5.5 mmol/L (0.7-2.1)
--- NOTE | 2024-10-23 20:30 | PC.NURSE ---
lactic 5.5 reported to primary rn
--- NOTE | 2024-10-23 21:00 | PC.NURSE ---
Pt back from CT. Tolerated well
[2024-10-23] MEDS: SODIUM CHLORIDE 0.9% 1,000 ML 75 ML IV (21:09)
[2024-10-23 22:46] LABS: Lactate (Lactic Acid) 3.5 mmol/L (0.7-2.1)
[2024-10-23] MEDS: POTASSIUM CHLORIDE 10 MEQ TAB PO (23:00)
[2024-10-23] MEDS: GABAPENTIN 100 MG CAPSULE PO (23:00)
[2024-10-23] MEDS: ATORVASTATIN 20 MG TABLET 10 MG PO (23:01)
[2024-10-23] MEDS: LOSARTAN 50 MG TABLET PO (23:01)
[2024-10-23] MEDS: FAMOTIDINE 20 MG/2 ML VIAL IV (23:02)
[2024-10-23] MEDS: INSULIN GLARGINE 100 UNIT/ML 3ML PEN 64 UNIT SUBCUT (23:03)
--- NOTE | 2024-10-23 23:21 | PM.HP.1 ---
History of Present Illness History of Present Illness Chief complaint: SOB -resp failure Narrative: 73 years old male with history of advanced Parkinson disease, wheelchair-bound, prostate cancer with chronic [place] catheter, recurrent UTIs, pacemaker, diabetes mellitus type 2, hypertension, CHF, hyperlipidemia, presented to the ER with respiratory distress similar to his hospitalizations in May 2023 and March 2024 requiring high flow oxygen. Found to have sepsis with ESBL UTI. The patient reports increased shortness of breath in the last couple of weeks. Falling several times from his wheelchair. Denies any fever, cough, chest pain, palpitations, nausea, vomiting, abdominal pain, diarrhea or dysuria. Laboratory shows WBC 10.8, H&H 12.7/38.1, sodium 132, potassium 4.5, creatinine 0.96, blood sugar 251, lactate 7.3, LFT normal, magnesium 1.3, troponin less than 0.0 12, BNP 216, lipase 73, procalcitonin 0.07, UA shows UTI and hematuria, respiratory viral panel negative. CTA of the chest shows no PE and cardiomegaly. Abdominal CT scan shows moderate constipation and diffuse bladder wall thickening concerning for cystitis. In the ER he was given albuterol, cefepime, vancomycin, fluid bolus, Solu-Medrol 125 mg IV and magnesium 2 g IV. [facility] Medical History Urinary retention COPD exacerbation History of urinary retention Hyperlipidemia History of nephrolithiasis Left nephrolithiasis Urinary retention Recurrent UTI History of prostate cancer Acne Shoulder pain Ankle pain Measles Chicken pox Prostate cancer (~2010) Anemia Benign prostatic hyperplasia GERD (gastroesophageal reflux disease) Hypertension Type 2 diabetes mellitus Parkinson's disease Congestive heart failure Surgical History S/P deep brain stimulator placement (11/2019) History of prostate biopsy Anesthesia History of knee surgery Kidney stones Family History Father Stroke Hypertension Bacterial UTI Mother Cancer Sister Hypertension Aunt Diabetes mellitus Uncle Kidney stones Social History marital status: number of children: 3 household members: spouse and family Smoking Status: Former smoker alcohol intake: never Type(s) of exercise: walking frequency: 1-2 times per week Meds Home Medications and Allergies Home Medications ?Medication ?Instructions ?Recorded ?Confirmed ?Type latanoprost 0.005 % eye drops 1 drp EYE-BOTH DAILY 06/02/22 10/23/24 History aspirin 81 mg tablet,delayed 81 mg PO DAILY 10/21/22 10/23/24 History release (Adult Low Dose Aspirin) acetaminophen 500 mg tablet 500 mg PO Q6H PRN Pain (Scale 04/03/23 10/23/24 History (Acetaminophen Extra Strength) Score 4-6) carbidopa 25 mg-levodopa 100 mg See Rx Instructions .Route .COMPLEX 04/03/23 10/23/24 History tablet cranberry fruit 400 mg capsule 400 mg PO DAILY 04/03/23 10/23/24 History entacapone 200 mg tablet 100 mg PO 5XD 05/18/23 10/23/24 History lidocaine HCl 2 % mucosal solution 1 applic mucous membrane BID-TID 07/27/23 10/23/24 Rx (Lidocaine Viscous) PRN pain #100 mL atorvastatin 10 mg tablet 10 mg PO DAILY #90 tabs 11/09/23 10/23/24 Rx finasteride 5 mg tablet (Proscar) 5 mg PO DAILY #10 tabs 12/01/23 09/26/24 Rx blood sugar diagnostic (Blood #50 ea 02/16/24 10/23/24 Rx Glucose Test strips) blood-glucose meter #1 ea 02/16/24 10/23/24 Rx lancets 31 gauge (Comfort Touch #100 ea 02/16/24 10/23/24 Rx Ultra Thin Lancets) tamsulosin 0.4 mg capsule 0.8 mg (2 x 0.4 mg) PO DAILY #180 02/20/24 10/23/24 Rx caps amlodipine 2.5 mg tablet 2.5 mg PO DAILY #90 tabs 04/13/24 10/23/24 Rx methenamine hippurate 1 gram tablet 1 g PO BID #180 tabs 04/27/24 10/23/24 Rx metformin 850 mg tablet 850 mg PO TID #240 tabs 05/11/24 10/23/24 Rx albuterol sulfate 90 mcg/actuation 1 puff inhalation Q4-6H #8.5 grams 05/25/24 10/23/24 Rx aerosol inhaler potassium chloride 10 mEq 10 meq PO BID 05/25/24 10/23/24 History tablet,extended release selegiline HCl 5 mg tablet 5 mg PO BID 05/25/24 10/23/24 History temazepam 15 mg capsule 15 mg PO BEDTIME PRN sleep 05/25/24 10/23/24 History timolol maleate 0.25 % eye drops 1 drp EYE-BOTH DAILY 05/25/24 10/23/24 History ipratropium 0.5 mg-albuterol 3 mg 3 ml inhalation Q6H PRN shortness 07/16/24 10/23/24 Rx (2.5 mg base)/3 mL nebulization of breath or wheezing #180 mL soln omeprazole 20 mg capsule,delayed 20 mg PO DAILY #90 caps 07/26/24 10/23/24 Rx release albuterol sulfate 2.5 mg/3 mL 2.5 mg (3 mL) inhalation QID #75 mL 07/27/24 10/23/24 Rx (0.083 %) solution for nebulization gabapentin 100 mg capsule 100 mg PO 3XD #270 caps 08/14/24 10/23/24 Rx losartan 50 mg tablet 50 mg PO BID #180 tabs 08/14/24 10/23/24 Rx potassium citrate 10 mEq (1,080 10 meq PO BID #180 tabs 08/14/24 10/23/24 Rx mg) tablet,extended release citric ac 1980.6 mg-glucono 59.4 30 ml irrigation TID #900 mL 08/29/24 09/26/24 Rx mg-mag carb 980.4 mg/30 mL irrig.soln (Renacidin) pen needle, diabetic 32 gauge x #100 ea 10/11/24 10/23/24 Rx 5/32 (Reshma 2nd Gen Pen Needle) insulin glargine-yfgn 100 unit/mL See Rx Instructions .Route 10/23/24 10/23/24 Rx (3 mL) subcutaneous pen .COMPLEX #60 mL Allergies Allergy/AdvReac Type Severity Reaction Status Date / Time No Known Drug Allergies Allergy Verified 10/23/24 21:52 Review of Systems Review of Systems ROS: Yes All systems reviewed with the patient and are negative except as otherwise documented Constitutional Constitutional: Reports as per HPI and Reports system reviewed and no additional complaints, except as documented Eyes Eyes: Reports as per HPI and Reports system reviewed and no additional complaints, except as documented ENT Ears, Nose, Mouth, and Throat: Yes as per HPI and Yes system reviewed and no additional complaints, except as documented Cardiovascular Cardiovascular: Reports system reviewed and no additional complaints, except as documented Respiratory Respiratory: Reports system reviewed and no additional complaints, except as documented Gastrointestinal Gastrointestinal: Reports system reviewed and no additional complaints, except as documented Genitourinary Genitourinary: Reports system reviewed and no additional complaints, except as documented Musculoskeletal Musculoskeletal: Reports system reviewed and no additional complaints, except as documented, Reports abnormal gait and Reports numbness Neurologic Neurologic: Reports system reviewed and no additional complaints, except as documented, Reports abnormal gait, Reports confusion and Reports numbness Psychiatric Psychiatric: Reports system reviewed and no additional complaints, except as documented and Reports confusion Exam Vital Signs (past 8 hours): - 10/23/24 17:51 10/23/24 17:53 10/23/24 17:55 Temperature 101.5 F H Pulse Rate 86 109 H Respiratory Rate 37 H 34 H Blood Pressure 154/70 H Pulse Oximetry 97 93 Oxygen Delivery Method CPAP Oxygen Flow Rate Fraction of Inspired Oxygen 60 10/23/24 17:57 10/23/24 18:00 10/23/24 18:30 Temperature Pulse Rate 109 H 88 73 Respiratory Rate 32 H Blood Pressure 101/57 L Pulse Oximetry 100 94 86 L Oxygen Delivery Method Room Air Oxygen Flow Rate Fraction of Inspired Oxygen 10/23/24 18:40 10/23/24 18:49 10/23/24 18:49 Temperature Pulse Rate 86 126 H Respiratory Rate 37 H Blood Pressure 154/70 H 134/60 Pulse Oximetry 97 99 Oxygen Delivery Method Oxygen Flow Rate Fraction of Inspired Oxygen 10/23/24 19:00 10/23/24 19:02 10/23/24 19:02 Temperature Pulse Rate 112 H 111 H Respiratory Rate 77 H Blood Pressure 101/57 L Pulse Oximetry 95 95 Oxygen Delivery Method Oxygen Flow Rate Fraction of Inspired Oxygen 10/23/24 19:30 10/23/24 19:30 10/23/24 19:46 Temperature Pulse Rate 112 H 102 H Respiratory Rate 40 H 35 H Blood Pressure 123/84 Pulse Oximetry 98 96 Oxygen Delivery Method Oxygen Flow Rate Fraction of Inspired Oxygen 10/23/24 19:46 10/23/24 19:52 10/23/24 20:00 Temperature Pulse Rate 102 H 101 H Respiratory Rate 42 H Blood Pressure 147/63 H 147/63 H Pulse Oximetry 96 96 Oxygen Delivery Method High Flow Nasal Cannula Oxygen Flow Rate Fraction of Inspired Oxygen 10/23/24 20:01 10/23/24 20:01 10/23/24 20:09 Temperature Pulse Rate 101 H 98 H Respiratory Rate 30 H Blood Pressure 134/79 Pulse Oximetry 96 96 Oxygen Delivery Method Oxygen Flow Rate Fraction of Inspired Oxygen 10/23/24 20:16 10/23/24 20:16 10/23/24 20:30 Temperature Pulse Rate 97 H 97 H Respiratory Rate 30 H 37 H Blood Pressure 109/56 L Pulse Oximetry 96 95 Oxygen Delivery Method Oxygen Flow Rate Fraction of Inspired Oxygen 10/23/24 20:30 10/23/24 20:43 10/23/24 20:43 Temperature Pulse Rate 96 H Respiratory Rate 28 H Blood Pressure 154/68 H 130/52 L Pulse Oximetry 96 Oxygen Delivery Method Oxygen Flow Rate Fraction of Inspired Oxygen 10/23/24 21:00 10/23/24 21:15 10/23/24 21:15 Temperature Pulse Rate 105 H 99 H Respiratory Rate Blood Pressure 150/67 H Pulse Oximetry 96 95 Oxygen Delivery Method Oxygen Flow Rate Fraction of Inspired Oxygen 10/23/24 21:30 10/23/24 21:35 10/23/24 22:01 Temperature 98.5 F Pulse Rate 97 H 97 H 93 H Respiratory Rate 24 19 24 Blood Pressure 109/53 L Pulse Oximetry 92 94 94 Oxygen Delivery Method Oxygen Flow Rate 60 Fraction of Inspired Oxygen 28 10/23/24 22:30 10/23/24 23:01 Temperature Pulse Rate 92 H 87 Respiratory Rate 18 Blood Pressure 109/53 L Pulse Oximetry 95 Oxygen Delivery Method Oxygen Flow Rate Fraction of Inspired Oxygen Fraction of Inspired Oxygen 28 Oxygen Delivery Method High Flow Nasal Cannula Oxygen Flow Rate 60 Const General: cooperative, comfortable and well developed Orientation: alert and oriented x3 HENMT Head: normal to inspection, normocephalic and atraumatic Face and sinus: normal facial exam Mouth: oral mucosae normal and moist mucous membranes Throat: posterior oropharynx normal Eyes General: appearance normal, both eyes and all related structures Pupils: PERRL EOM: EOM intact bilaterally Neck Neck: normal visual inspection and full ROM Chest Chest: normal inspection of the chest Resp Effort & Inspection: normal respiratory effort and able to speak in complete sentences Auscultation: clear to auscultation bilaterally Cardio Palpation: normal PMI Rate: regular rate Rhythm: regular rhythm Heart Sounds: S1 normal and S2 normal GI Inspection: normal to inspection Palpation: soft and no hepatosplenomegaly Auscultation: normal bowel sounds Skin General: no rashes or lesions noted Lesions: no lesions Rashes: no rashes Trauma: no lacerations or abrasions Neuro General: patient alert, patient awake, patient oriented x3 and no focal motor deficits Cranial Nerves: CN's II-XI intact bilaterally Cognition: normal cognition Speech: speech normal Gait: normal gait Motor: muscle tone normal throughout Sensory Exam: no sensory deficits noted Extrem General: full ROM and no calf tenderness Psych Appearance: grossly normal Mental Status: mental status grossly normal Speech and Movement: speech and movement normal Objective Labs 10/23/24 17:50 10/23/24 17:50 Labs: Laboratory Results - last 24 hr 10/23/24 10/23/24 10/23/24 17:50 17:50 17:54 WBC 10.8 RBC 4.39 L Hgb 12.7 L Hct 38.1 L MCV 86.8 MCH 29.0 MCHC 33.4 RDW 15.0 H Plt Count 254 Neut % (Auto) 71.6 Lymph % (Auto) 19.1 L [place] % (Auto) 6.2 Eos % (Auto) 1.6 L Baso % (Auto) 1.5 Neut # (Auto) 7800 H Lymph # (Auto) 2100 [place] # (Auto) 700 Eos # (Auto) 200 Baso # (Auto) 200 H VBG pH 7.36 VBG pCO2 34.2 L VBG pO2 42 VBG HCO3 19 L VBG Total CO2 18 L VBG O2 Saturation 76 H VBG Base Excess -5.6 L Sodium 132 L Potassium 4.5 Chloride 101 Carbon Dioxide 14 L BUN 17 Creatinine 0.96 Estimated GFR > 60 BUN/Creatinine Ratio 17.7 Glucose 251 H POC Whole Bld Glucose Lactate 7.3 H* Calcium 9.5 Magnesium 1.3 L Total Bilirubin 0.7 AST 16 L ALT 15 Alkaline Phosphatase 89 Troponin I < 0.012 NT-Pro-B Natriuret Pep 216 Total Protein 7.1 Albumin 4.2 Globulin 2.9 Albumin/Globulin Ratio 1.4 Lipase 73 Procalcitonin 0.070 0.071 Urine Color Urine Appearance Urine pH Ur Specific [employer] Urine Protein Urine Glucose (UA) Urine Ketones Urine Occult Blood Urine Nitrate Urine Bilirubin Urine Urobilinogen Ur Leukocyte Esterase Urine RBC Urine WBC Ur Squamous Epith Cells Ur Transition Epith Cell Urine Bacteria Ur Culture Indicated? Micro UA Comment Vol Urine Centrifuged Chlamy pneumoniae PCR Adenovirus (PCR) B. pertussis DNA (PCR) B.parapertussis DNA PCR Coronavirus OC43 (PCR) Coronavirus HKU1 (PCR) Coronavirus 229E (PCR) SARS-CoV-2 (PCR) Coronavirus NL63 (PCR) Human Metapneumovir PCR Influenza Type A (PCR) Influenza Type B (PCR) M. pneumoniae (PCR) Parainfluenza 1 (PCR) Parainfluenza 2 (PCR) Parainfluenza 3 (PCR) Parainfluenza 4 (PCR) RSV (PCR) Entero/Rhino (PCR) 10/23/24 10/23/24 10/23/24 19:15 20:04 22:28 WBC RBC Hgb Hct MCV MCH MCHC RDW Plt Count Neut % (Auto) Lymph % (Auto) [place] % (Auto) Eos % (Auto) Baso % (Auto) Neut # (Auto) Lymph # (Auto) [place] # (Auto) Eos # (Auto) Baso # (Auto) VBG pH VBG pCO2 VBG pO2 VBG HCO3 VBG Total CO2 VBG O2 Saturation VBG Base Excess Sodium Potassium Chloride Carbon Dioxide BUN Creatinine Estimated GFR BUN/Creatinine Ratio Glucose POC Whole Bld Glucose Lactate 5.5 H* 3.5 H Calcium Magnesium Total Bilirubin AST ALT Alkaline Phosphatase Troponin I NT-Pro-B Natriuret Pep Total Protein Albumin Globulin Albumin/Globulin Ratio Lipase Procalcitonin Urine Color Yellow Urine Appearance Cloudy Urine pH 5.5 Ur Specific [employer] 1.025 Urine Protein 2+ H Urine Glucose (UA) 2+ H Urine Ketones 1+ H Urine Occult Blood 3+ H Urine Nitrate Negative Urine Bilirubin Negative Urine Urobilinogen 0.2 Ur Leukocyte Esterase 1+ H Urine RBC >100/hpf H Urine WBC 10-30/hpf H Ur Squamous Epith Cells 1-5 /hpf Ur Transition Epith Cell 0-1/hpf Urine Bacteria Moderate (10-30) H Ur Culture Indicated? Specimen cultured Micro UA Comment Vol Urine Centrifuged 10ml (spun) Chlamy pneumoniae PCR Not detected Adenovirus (PCR) Not detected B. pertussis DNA (PCR) Not detected B.parapertussis DNA PCR Not detected Coronavirus OC43 (PCR) Not detected Coronavirus HKU1 (PCR) Not detected Coronavirus 229E (PCR) Not detected SARS-CoV-2 (PCR) Not detected Coronavirus NL63 (PCR) Not detected Human Metapneumovir PCR Not detected Influenza Type A (PCR) Not detected Influenza Type B (PCR) Not detected M. pneumoniae (PCR) Not detected Parainfluenza 1 (PCR) Not detected Parainfluenza 2 (PCR) Not detected Parainfluenza 3 (PCR) Not detected Parainfluenza 4 (PCR) Not detected RSV (PCR) Not detected Entero/Rhino (PCR) Not detected 10/23/24 23:00 WBC RBC Hgb Hct MCV MCH MCHC RDW Plt Count Neut % (Auto) Lymph % (Auto) [place] % (Auto) Eos % (Auto) Baso % (Auto) Neut # (Auto) Lymph # (Auto) [place] # (Auto) Eos # (Auto) Baso # (Auto) VBG pH VBG pCO2 VBG pO2 VBG HCO3 VBG Total CO2 VBG O2 Saturation VBG Base Excess Sodium Potassium Chloride Carbon Dioxide BUN Creatinine Estimated GFR BUN/Creatinine Ratio Glucose POC Whole Bld Glucose 276 H Lactate Calcium Magnesium Total Bilirubin AST ALT Alkaline Phosphatase Troponin I NT-Pro-B Natriuret Pep Total Protein Albumin Globulin Albumin/Globulin Ratio Lipase Procalcitonin Urine Color Urine Appearance Urine pH Ur Specific [employer] Urine Protein Urine Glucose (UA) Urine Ketones Urine Occult Blood Urine Nitrate Urine Bilirubin Urine Urobilinogen Ur Leukocyte Esterase Urine RBC Urine WBC Ur Squamous Epith Cells Ur Transition Epith Cell Urine Bacteria Ur Culture Indicated? Micro UA Comment Vol Urine Centrifuged Chlamy pneumoniae PCR Adenovirus (PCR) B. pertussis DNA (PCR) B.parapertussis DNA PCR Coronavirus OC43 (PCR) Coronavirus HKU1 (PCR) Coronavirus 229E (PCR) SARS-CoV-2 (PCR) Coronavirus NL63 (PCR) Human Metapneumovir PCR Influenza Type A (PCR) Influenza Type B (PCR) M. pneumoniae (PCR) Parainfluenza 1 (PCR) Parainfluenza 2 (PCR) Parainfluenza 3 (PCR) Parainfluenza 4 (PCR) RSV (PCR) Entero/Rhino (PCR) Assessment & Plan Assessment & Plan narrative: Acute respiratory failure with hypoxia,?most likely due to UTI/COPD -Oxygen supplement to keep his oxygenation greater than 92% -Albuterol when necessary, Tessalon 100mg po QID prn -if the patient has significant hypoxic or lethargic will consider ABG - Continue steroids and antibiotics UTI -Blood culture, urine culture, -Antibiotics, cefepime and vancomycin -Monitor for urine retention, check post void residuals. -Restart Proscar Hypomagnesemia. Replaced in ED -continue Telemetry -order BMP, magnesium a.m Advanced Parkinson disease. Restart carbidopa levodopa Hyperlipidemia. Restart Lipitor Hypertension. Restart amlodipine and losartan Diabetes mellitus type 2, insulin-dependent. ADA diet, SSI, long-acting insulin, monitor blood sugar, check A1c. Hold metformin for now GERD. Restart PPI Time-Based Coding :: [TOTAL MINUTES] spent with patient and on the chart (including review of chart, obtaining history, exam, reviewing outside data, placing orders, documenting exam and treatment plan, and counseling patient) on [DATE]. Quality VTE Deep Vein Thrombosis/Pulmonary Embolism Present on Admission: No MIPS - Admit I confirm the patient?s Advance Care Plan is present, Code status is documented, Surrogate decision maker is in patient?s record [If Yes, STOP here]: Yes MIPS - Meds 'Current medications' to include all prescriptions, [id number] products, herbals, cannabis/cannabidiol products, and vitamin/mineral/dietary (nutritional) supplements. I have utilized all available resources to obtain, update, or review the patient?s current medications. [If Yes, STOP here]: Yes
[2024-10-24] VITALS (59 sets, daily range): BP systolic 125–195; BP diastolic 63–130; PULSE 69–184; RESP 14–49; TEMP 36.2–36.8; O2SAT 82–100
[2024-10-24 00:11] LABS: Reflexed Lactate in 2 Hours Y
[2024-10-24 00:26] LABS: MRSA (Nasal) PCR NOT DETECTED (Not Detect)
[2024-10-24 00:41] LABS: Lactate 2HR (Lactic Acid Rflx) 2.7 mmol/L (0.7-2.1)
[2024-10-24] MEDS: methylPREDNISolone succ 125 MG/2 ML VIAL 40 MG IV ×4 (01:06→17:22)
[2024-10-24] MEDS: CARBIDOPA-LEVODOPA 25/100 TABLET 2.5 EACH PO ×3 (01:07→21:21)
[2024-10-24] MEDS: ALBUTEROL 2.5 MG/3 ML NEB (ADULT) INH ×4 (01:21→14:11)
[2024-10-24] MEDS: MORPHINE 4 MG/ML INJ 3 MG IV ×2 (04:54→10:07)
[2024-10-24 06:14] LABS: Alanine Aminotransferase 13 IU/L (<50); Albumin 4.0 g/dL (3.5-5.0); Albumin Globulin Ratio 1.3 (1.0-2.8); Alkaline Phosphatase 79 U/L (38-126); Blood Urea Nitrogen 17 mg/dL (9-20); Calcium 8.6 mg/dL (8.4-10.2); Carbon Dioxide 15 mmol/L (22-32); Chloride 105 mmol/L (98-107); Estimated Glomerular Filt Rate > 60 mL/min (>60); Globulin 3.0 g/dL (1.7-4.1); Glucose 314 mg/dL (70-99); HEMOLYSIS < 15 (0-50); Magnesium 1.7 mg/dL (1.6-2.3); Potassium 4.4 mmol/L (3.4-5.1); Sodium 134 mmol/L (137-145); Total Protein 7.0 g/dL (6.3-8.2)
[2024-10-24] MEDS: CEFEPIME 1 GM in SODIUM CHLORIDE 0.9% 100 ML IV ×2 (06:37→18:21)
[2024-10-24] MEDS: PANTOPRAZOLE DR 20 MG TABLET PO (06:37)
[2024-10-24] MEDS: CARBIDOPA-LEVODOPA 25/100 TABLET 3 EACH PO ×2 (06:38→16:03)
--- NOTE | 2024-10-24 06:49 | PC.NURSE ---
brake liner RN note pt arrived via stretcher, A&Ox4, baseline parkinsons tremors and w/c bound, states he's been falling lately out of chair, various healing sores on bilat legs, chronic mixon for clear yellow urine, lungs decreased t/o, RR 20s on HHF 60L 28%, O2 sats >92%, only one episode of SOB requiring morphine in am, prn duonebs for wheezing, abd round soft with BS, meds and labs as ordered, call melgar within reach, turn q2h, care ongoing
[2024-10-24] MEDS: ALBUTEROL/IPRATROPIUM 3 ML AMPUL INH (07:15)
--- NOTE | 2024-10-24 07:40 | PM.PN.1 ---
Subjective Subjective Interval history: From night doctor: 73 years old male with history of advanced Parkinson disease, wheelchair-bound, prostate cancer with chronic Churchill catheter, recurrent UTIs, pacemaker, diabetes mellitus type 2, hypertension, CHF, hyperlipidemia, presented to the ER with respiratory distress similar to his hospitalizations in May 2023 and March 2024 requiring high flow oxygen. Found to have sepsis with ESBL UTI. The patient reports increased shortness of breath in the last couple of weeks. Falling several times from his wheelchair. Denies any fever, cough, chest pain, palpitations, nausea, vomiting, abdominal pain, diarrhea or dysuria. Laboratory shows WBC 10.8, H&H 12.7/38.1, sodium 132, potassium 4.5, creatinine 0.96, blood sugar 251, lactate 7.3, LFT normal, magnesium 1.3, troponin less than 0.0 12, BNP 216, lipase 73, procalcitonin 0.07, UA shows UTI and hematuria, respiratory viral panel negative. CTA of the chest shows no PE and cardiomegaly. Abdominal CT scan shows moderate constipation and diffuse bladder wall thickening concerning for cystitis. In the ER he was given albuterol, cefepime, vancomycin, fluid bolus, Solu-Medrol 125 mg IV and magnesium 2 g IV. S: He remains very short of breath and uncomfortable. He was on high-flow oxygen at 28% FiO2 and 60 L. he does have some stridor is audible expiratory sounds while in the room. He states morphine did help.Minimal cough. O: He appears moderately distressed and is writhing with audible stridor, alert and oriented. Fluent speech, soft. Lungs are notable for good breath sounds and some high central expiratory stridor. He was breathing at an accelerated rate rated rate and appears to be uncomfortable. He was on high-flow oxygen. Heart is regular, no murmur gallop or rub. Abdomen is soft, non distended. Extremities are free of edema. A/P: 1. Acute respiratory failure with hypoxia and COPD exacerbation. -Oxygen supplement to keep his oxygenation greater than 92% -Albuterol when necessary, Tessalon 100mg po QID prn -if the patient has significant hypoxic or lethargic will consider ABG - Continue steroids and antibiotics 2. UTI -Blood culture, urine culture, -Antibiotics, cefepime and vancomycin -Monitor for urine retention, check post void residuals. -Restart Proscar 3. Hypomagnesemia. Replaced in ED -continue Telemetry -order BMP, magnesium a.m Chronic medical problems, stable: -Advanced Parkinson disease. Restart carbidopa levodopa -Hyperlipidemia. Restart Lipitor -Hypertension. Restart amlodipine and losartan -Diabetes mellitus type 2, insulin-dependent. ADA diet, SSI, long-acting insulin, monitor blood sugar, check A1c. Hold metformin for now -GERD. Restart PPI DNR. Exam Vital Signs (past 8 hours): - 10/24/24 00:00 10/24/24 00:11 10/24/24 00:11 Pulse Rate 84 85 Respiratory Rate 22 25 H Blood Pressure 172/71 H Pulse Oximetry 97 97 Oxygen Delivery Method Oxygen Flow Rate Fraction of Inspired Oxygen 10/24/24 00:16 10/24/24 00:16 10/24/24 00:30 Pulse Rate 84 83 Respiratory Rate 24 25 H Blood Pressure 147/63 H Pulse Oximetry 96 95 Oxygen Delivery Method Oxygen Flow Rate Fraction of Inspired Oxygen 10/24/24 01:00 10/24/24 01:23 10/24/24 01:30 Pulse Rate 80 80 81 Respiratory Rate 23 22 30 H Blood Pressure Pulse Oximetry 97 97 97 Oxygen Delivery Method Heated High Flow Oxygen Flow Rate 60 Fraction of Inspired Oxygen 10/24/24 02:00 10/24/24 02:30 10/24/24 03:00 Pulse Rate 80 81 79 Respiratory Rate 23 26 H 22 Blood Pressure Pulse Oximetry 96 97 97 Oxygen Delivery Method Oxygen Flow Rate Fraction of Inspired Oxygen 10/24/24 03:30 10/24/24 04:00 10/24/24 04:00 Pulse Rate 79 79 Respiratory Rate 29 H 24 Blood Pressure 195/90 H Pulse Oximetry 96 96 Oxygen Delivery Method Oxygen Flow Rate Fraction of Inspired Oxygen 10/24/24 04:30 10/24/24 05:00 10/24/24 05:04 Pulse Rate 79 84 88 Respiratory Rate 22 41 H 49 H Blood Pressure Pulse Oximetry 96 98 99 Oxygen Delivery Method Oxygen Flow Rate 60 Fraction of Inspired Oxygen 10/24/24 05:30 10/24/24 06:00 10/24/24 06:00 Pulse Rate 84 83 Respiratory Rate 29 H 26 H Blood Pressure 186/79 H Pulse Oximetry 98 98 Oxygen Delivery Method Oxygen Flow Rate Fraction of Inspired Oxygen 10/24/24 06:30 10/24/24 07:16 10/24/24 07:27 Pulse Rate 82 84 Respiratory Rate 24 40 H Blood Pressure Pulse Oximetry 98 99 100 Oxygen Delivery Method High Flow Nasal Cannula High Flow Nasal Cannula Oxygen Flow Rate 60 60 Fraction of Inspired Oxygen 28 28 Fraction of Inspired Oxygen 28 SaO2/FiO2 Ratio 357 Oxygen Delivery Method High Flow Nasal Cannula Oxygen Flow Rate 60 Objective Labs 10/23/24 17:50 10/24/24 05:58 Labs: Laboratory Results - last 24 hr 10/23/24 10/23/24 10/23/24 17:50 17:50 17:54 WBC 10.8 RBC 4.39 L Hgb 12.7 L Hct 38.1 L MCV 86.8 MCH 29.0 MCHC 33.4 RDW 15.0 H Plt Count 254 Neut % (Auto) 71.6 Lymph % (Auto) 19.1 L [place] % (Auto) 6.2 Eos % (Auto) 1.6 L Baso % (Auto) 1.5 Neut # (Auto) 7800 H Lymph # (Auto) 2100 [place] # (Auto) 700 Eos # (Auto) 200 Baso # (Auto) 200 H VBG pH 7.36 VBG pCO2 34.2 L VBG pO2 42 VBG HCO3 19 L VBG Total CO2 18 L VBG O2 Saturation 76 H VBG Base Excess -5.6 L Sodium 132 L Potassium 4.5 Chloride 101 Carbon Dioxide 14 L BUN 17 Creatinine 0.96 Estimated GFR > 60 BUN/Creatinine Ratio 17.7 Glucose 251 H POC Whole Bld Glucose Lactate 7.3 H* Calcium 9.5 Magnesium 1.3 L Total Bilirubin 0.7 AST 16 L ALT 15 Alkaline Phosphatase 89 Troponin I < 0.012 NT-Pro-B Natriuret Pep 216 Total Protein 7.1 Albumin 4.2 Globulin 2.9 Albumin/Globulin Ratio 1.4 Lipase 73 Procalcitonin 0.070 0.071 Urine Color Urine Appearance Urine pH Ur Specific [place] Urine Protein Urine Glucose (UA) Urine Ketones Urine Occult Blood Urine Nitrate Urine Bilirubin Urine Urobilinogen Ur Leukocyte Esterase Urine RBC Urine WBC Ur Squamous Epith Cells Ur Transition Epith Cell Urine Bacteria Ur Culture Indicated? Micro UA Comment Vol Urine Centrifuged Nasal Screen MRSA (PCR) Chlamy pneumoniae PCR Adenovirus (PCR) B. pertussis DNA (PCR) B.parapertussis DNA PCR Coronavirus OC43 (PCR) Coronavirus HKU1 (PCR) Coronavirus 229E (PCR) SARS-CoV-2 (PCR) Coronavirus NL63 (PCR) Human Metapneumovir PCR Influenza Type A (PCR) Influenza Type B (PCR) M. pneumoniae (PCR) Parainfluenza 1 (PCR) Parainfluenza 2 (PCR) Parainfluenza 3 (PCR) Parainfluenza 4 (PCR) RSV (PCR) Entero/Rhino (PCR) 10/23/24 10/23/24 10/23/24 19:15 20:04 21:50 WBC RBC Hgb Hct MCV MCH MCHC RDW Plt Count Neut % (Auto) Lymph % (Auto) [place] % (Auto) Eos % (Auto) Baso % (Auto) Neut # (Auto) Lymph # (Auto) [place] # (Auto) Eos # (Auto) Baso # (Auto) VBG pH VBG pCO2 VBG pO2 VBG HCO3 VBG Total CO2 VBG O2 Saturation VBG Base Excess Sodium Potassium Chloride Carbon Dioxide BUN Creatinine Estimated GFR BUN/Creatinine Ratio Glucose POC Whole Bld Glucose Lactate 5.5 H* Calcium Magnesium Total Bilirubin AST ALT Alkaline Phosphatase Troponin I NT-Pro-B Natriuret Pep Total Protein Albumin Globulin Albumin/Globulin Ratio Lipase Procalcitonin Urine Color Yellow Urine Appearance Cloudy Urine pH 5.5 Ur Specific [place] 1.025 Urine Protein 2+ H Urine Glucose (UA) 2+ H Urine Ketones 1+ H Urine Occult Blood 3+ H Urine Nitrate Negative Urine Bilirubin Negative Urine Urobilinogen 0.2 Ur Leukocyte Esterase 1+ H Urine RBC >100/hpf H Urine WBC 10-30/hpf H Ur Squamous Epith Cells 1-5 /hpf Ur Transition Epith Cell 0-1/hpf Urine Bacteria Moderate (10-30) H Ur Culture Indicated? Specimen cultured Micro UA Comment Vol Urine Centrifuged 10ml (spun) Nasal Screen MRSA (PCR) Not detected Chlamy pneumoniae PCR Not detected Adenovirus (PCR) Not detected B. pertussis DNA (PCR) Not detected B.parapertussis DNA PCR Not detected Coronavirus OC43 (PCR) Not detected Coronavirus HKU1 (PCR) Not detected Coronavirus 229E (PCR) Not detected SARS-CoV-2 (PCR) Not detected Coronavirus NL63 (PCR) Not detected Human Metapneumovir PCR Not detected Influenza Type A (PCR) Not detected Influenza Type B (PCR) Not detected M. pneumoniae (PCR) Not detected Parainfluenza 1 (PCR) Not detected Parainfluenza 2 (PCR) Not detected Parainfluenza 3 (PCR) Not detected Parainfluenza 4 (PCR) Not detected RSV (PCR) Not detected Entero/Rhino (PCR) Not detected 10/23/24 10/23/24 10/24/24 22:28 23:00 00:26 WBC RBC Hgb Hct MCV MCH MCHC RDW Plt Count Neut % (Auto) Lymph % (Auto) [place] % (Auto) Eos % (Auto) Baso % (Auto) Neut # (Auto) Lymph # (Auto) [place] # (Auto) Eos # (Auto) Baso # (Auto) VBG pH VBG pCO2 VBG pO2 VBG HCO3 VBG Total CO2 VBG O2 Saturation VBG Base Excess Sodium Potassium Chloride Carbon Dioxide BUN Creatinine Estimated GFR BUN/Creatinine Ratio Glucose POC Whole Bld Glucose 276 H Lactate 3.5 H 2.7 H Calcium Magnesium Total Bilirubin AST ALT Alkaline Phosphatase Troponin I NT-Pro-B Natriuret Pep Total Protein Albumin Globulin Albumin/Globulin Ratio Lipase Procalcitonin Urine Color Urine Appearance Urine pH Ur Specific [place] Urine Protein Urine Glucose (UA) Urine Ketones Urine Occult Blood Urine Nitrate Urine Bilirubin Urine Urobilinogen Ur Leukocyte Esterase Urine RBC Urine WBC Ur Squamous Epith Cells Ur Transition Epith Cell Urine Bacteria Ur Culture Indicated? Micro UA Comment Vol Urine Centrifuged Nasal Screen MRSA (PCR) Chlamy pneumoniae PCR Adenovirus (PCR) B. pertussis DNA (PCR) B.parapertussis DNA PCR Coronavirus OC43 (PCR) Coronavirus HKU1 (PCR) Coronavirus 229E (PCR) SARS-CoV-2 (PCR) Coronavirus NL63 (PCR) Human Metapneumovir PCR Influenza Type A (PCR) Influenza Type B (PCR) M. pneumoniae (PCR) Parainfluenza 1 (PCR) Parainfluenza 2 (PCR) Parainfluenza 3 (PCR) Parainfluenza 4 (PCR) RSV (PCR) Entero/Rhino (PCR) 10/24/24 05:58 WBC RBC Hgb Hct MCV MCH MCHC RDW Plt Count Neut % (Auto) Lymph % (Auto) [place] % (Auto) Eos % (Auto) Baso % (Auto) Neut # (Auto) Lymph # (Auto) [place] # (Auto) Eos # (Auto) Baso # (Auto) VBG pH VBG pCO2 VBG pO2 VBG HCO3 VBG Total CO2 VBG O2 Saturation VBG Base Excess Sodium 134 L Potassium 4.4 Chloride 105 Carbon Dioxide 15 L BUN 17 Creatinine 0.75 Estimated GFR > 60 BUN/Creatinine Ratio 22.7 H Glucose 314 H POC Whole Bld Glucose Lactate Calcium 8.6 Magnesium 1.7 Total Bilirubin 0.8 AST 17 ALT 13 Alkaline Phosphatase 79 Troponin I NT-Pro-B Natriuret Pep Total Protein 7.0 Albumin 4.0 Globulin 3.0 Albumin/Globulin Ratio 1.3 Lipase Procalcitonin Urine Color Urine Appearance Urine pH Ur Specific [place] Urine Protein Urine Glucose (UA) Urine Ketones Urine Occult Blood Urine Nitrate Urine Bilirubin Urine Urobilinogen Ur Leukocyte Esterase Urine RBC Urine WBC Ur Squamous Epith Cells Ur Transition Epith Cell Urine Bacteria Ur Culture Indicated? Micro UA Comment Vol Urine Centrifuged Nasal Screen MRSA (PCR) Chlamy pneumoniae PCR Adenovirus (PCR) B. pertussis DNA (PCR) B.parapertussis DNA PCR Coronavirus OC43 (PCR) Coronavirus HKU1 (PCR) Coronavirus 229E (PCR) SARS-CoV-2 (PCR) Coronavirus NL63 (PCR) Human Metapneumovir PCR Influenza Type A (PCR) Influenza Type B (PCR) M. pneumoniae (PCR) Parainfluenza 1 (PCR) Parainfluenza 2 (PCR) Parainfluenza 3 (PCR) Parainfluenza 4 (PCR) RSV (PCR) Entero/Rhino (PCR) PFSH Medical History Urinary retention COPD exacerbation History of urinary retention Hyperlipidemia History of nephrolithiasis Left nephrolithiasis Urinary retention Recurrent UTI History of prostate cancer Acne Shoulder pain Ankle pain Measles Chicken pox Prostate cancer (~2010) Anemia Benign prostatic hyperplasia GERD (gastroesophageal reflux disease) Hypertension Type 2 diabetes mellitus Parkinson's disease Congestive heart failure Surgical History S/P deep brain stimulator placement (11/2019) History of prostate biopsy Anesthesia History of knee surgery Kidney stones Family History Father Stroke Hypertension Bacterial UTI Mother Cancer Sister Hypertension Aunt Diabetes mellitus Uncle Kidney stones Social History marital status: number of children: 3 household members: spouse and family Smoking Status: Former smoker alcohol intake: never Type(s) of exercise: walking frequency: 1-2 times per week Assessment & Plan Time-Based Coding :: [TOTAL MINUTES] spent with patient and on the chart (including review of chart, obtaining history, exam, reviewing outside data, placing orders, documenting exam and treatment plan, and counseling patient) on [DATE]. Quality VTE Deep Vein Thrombosis/Pulmonary Embolism Present on Admission: No
[2024-10-24] MEDS: ASPIRIN EC 81 MG TABLET PO (08:21)
[2024-10-24] MEDS: FAMOTIDINE 20 MG/2 ML VIAL IV ×2 (08:22→21:22)
[2024-10-24] MEDS: FINASTERIDE 5 MG TABLET PO (08:22)
[2024-10-24] MEDS: TAMSULOSIN 0.4 MG CAPSULE 0.8 MG PO (08:22)
[2024-10-24] MEDS: ENOXAPARIN 40 MG/0.4 ML SYRINGE SUBCUT (08:22)
[2024-10-24] MEDS: GABAPENTIN 100 MG CAPSULE PO ×3 (08:22→21:22)
[2024-10-24] MEDS: POTASSIUM CHLORIDE 10 MEQ TAB PO ×2 (08:22→21:24)
[2024-10-24] MEDS: LATANOPROST 0.005% OPHTH 2.5 ML 1 DROPS EYE-BOTH (08:22)
[2024-10-24] MEDS: LOSARTAN 50 MG TABLET PO ×2 (08:22→21:22)
[2024-10-24] MEDS: SODIUM CHLORIDE 0.9% FLUSH 10 ML IV ×2 (08:23→21:26)
[2024-10-24] MEDS: SODIUM CHLORIDE 0.9% 1,000 ML 75 ML IV (08:23)
[2024-10-24] MEDS: INSULIN GLARGINE 100 UNIT/ML 3ML PEN 60 UNIT SUBCUT (08:24)
[2024-10-24] MEDS: MORPHINE 4 MG/ML INJ IV ×3 (09:20→16:04)
--- NOTE | 2024-10-24 12:10 | CM.DANOTE ---
Initial DCP Assessment Note. Review EMR and PT Interview. Met with patient at bedside and his at bedside to discuss discharge needs.PT is alert x2-3. 3 liters NC. RR 28. at bedside and other family members help with patient's ADLS. Per , patient has had frequent falls. DME: WC, walker, shower bench, and nebulizer. No home oxygen. [facility]. Payor: Rohit CHAPMAN PCP: Dr. Goldsmith Summary & Plan: 74 y/o male arrived to ED via ambulance from home to ED admitted INPT to ICU. Dx. COPD Exacerbation. Plan: continue to wean oxygen and complete a Physical Therapy eval. Patient is agreeable to a SNF in the [facility]. Discharge Planning/Care Management CM Discharge Assessment Start: 10/23/24 21:01 Freq: Status: Active Protocol: Document 10/24/24 11:59 SM (Rec: 10/24/24 12:10 SM [id number]) Discharge Planning Assessment Assigned Discharge Sonali HICKS. Equipment Engineering Technician Provider Dr. Goldsmith Insurance [employer],Medicare Advance Directives? No Advance Directives No on File History Provided By Patient,Significant Other,Medical Record Prior Living House Arrangements Household Members spouse,family Comment normally transports for Appointments. Independent with ADL No: Increased weakness. Falls at home. 's Is patient alert and Yes oriented? Needs Assistance Bathing,Eating,Grooming,Meal Prep,Toileting,Managing With Medications,Home Chores / Shopping Caregiver for No Another Community Services Home Health Nurse used prior to admission: Comment [facility] Already Rented / Bath Bench,Wheelchair,FWW / Walker,Nebulizer Owned Comment requested a new WC. community resources provided. Patient/Family Intermediate Facility,Home with Home Health Preference Comment is agreeable to a SNF in the [facility]. Comment Weakness, not at PLOF Discharge Plan Intermediate Facility Transportation Likely cabulance if SNF Arrangement Referrals Initiated Intermediate,Other Additional Comment [facility] vs [facility] If patient plan is See prior comment home with home health: Has signed face to face form been completed? Review Status In Process Please Provide Date 10/24/24 Initial DC Assessment Was Performed Next Review Type Continued Stay Review
--- NOTE | 2024-10-24 14:29 | CM.DPC ---
Discharge Cont. Patient profile emailed to Iveth at [facility]. PASSR completed.
[2024-10-24] MEDS: VANCOMYCIN 2,000 MG/400 ML PIGGYBACK 200 MG IV (16:14)
[2024-10-24] MEDS: INSULIN LISPRO 100 UNIT/ML 3ML VIAL SUBCUT ×2 (17:22→21:33)
--- NOTE | 2024-10-24 20:23 | DI.RAD.S_ITS ---
PROCEDURE: XR KUB INDICATIONS: r/o SBO TECHNIQUE: One view of the abdomen acquired. COMPARISON: None. FINDINGS: Surgical changes and devices: Radiation therapy seeds are seen in the prostate gland. Bowel: Bowel gas pattern is nonobstructive. No gross pneumoperitoneum. Soft tissues: No suspicious abdominal calcifications. Visualized solid organ contours appear normal in size. Bones: No suspicious bony lesions. IMPRESSION: No evidence of bowel obstruction. No gross pneumoperitoneum. Dictated by: Bernardino Colon M.D. on 10/24/2024 at 21:10 Approved by: Bernardino Colon M.D. on 10/24/2024 at 21:11
--- NOTE | 2024-10-24 20:41 | PC.NURSE ---
Hospitalist on duty notified of patient removing PIV and telemetry monitoring and refusing to have them back on, okay to not have IV access and d/c telemetry.
[2024-10-24] MEDS: ENTACAPONE 200 MG TABLET 100 MG PO (21:21)
[2024-10-24] MEDS: ATORVASTATIN 20 MG TABLET 10 MG PO (21:22)
[2024-10-24] MEDS: INSULIN GLARGINE 100 UNIT/ML 3ML PEN 64 UNIT SUBCUT (21:33)
[2024-10-25] VITALS (24 sets, daily range): BP systolic 92–225; BP diastolic 58–113; PULSE 66–88; RESP 20–28; TEMP 36.6–37; O2SAT 75–100
[2024-10-25] MEDS: CARBIDOPA-LEVODOPA 25/100 TABLET 2.5 EACH PO ×3 (02:27→22:16)
[2024-10-25] MEDS: ENTACAPONE 200 MG TABLET 100 MG PO ×5 (02:35→21:41)
--- NOTE | 2024-10-25 07:53 | P.PN_ITS ---
Subjective Subjective Interval history: Summary: 10/24: 73 year old male with history of advanced Parkinson disease, wheelchair- bound, prostate cancer with chronic Churchill catheter, recurrent UTIs, pacemaker, diabetes mellitus type 2, hypertension, CHF, hyperlipidemia, presented to the ER with respiratory distress similar to his hospitalizations in May 2023 and March 2024 requiring high flow oxygen. Found to have sepsis with ESBL UTI. The patient reports increased shortness of breath in the last couple of weeks. Falling several times from his wheelchair. Denies any fever, cough, chest pain, palpitations, nausea, vomiting, abdominal pain, diarrhea or dysuria. Laboratory shows WBC 10.8, H&H 12.7/38.1, sodium 132, potassium 4.5, creatinine 0.96, blood sugar 251, lactate 7.3, LFT normal, magnesium 1.3, troponin less than 0.0 12, BNP 216, lipase 73, procalcitonin 0.07, UA shows UTI and hematuria, respiratory viral panel negative. CTA of the chest shows no PE and cardiomegaly. Abdominal CT scan shows moderate constipation and diffuse bladder wall thickening concerning for cystitis. In the ER he was given albuterol, cefepime, vancomycin, fluid bolus, Solu-Medrol 125 mg IV and magnesium 2 g IV. S: He feels much better today, other than then he was still wheezy. But even this is improved. He was not anxious was able to eat. He would like avoiding IV and IV medications but is willing to stay another night to be monitored on oral meds patient is it. O: NAD, alert and oriented. Fluent speech. Lungs are notable for diffuse expiratory wheezing, normal rate and effort. Heart is regular, no murmur gallop or rub. Abdomen is soft, non distended. Extremities are free of edema. A/P: 1. COPD exacerbation, active. 2. Possible UTI (H/O ESBL) 3. Hypomagnesemia, improved. Chronic medical problems: -Advanced Parkinson disease. Restart carbidopa levodopa -Hyperlipidemia. Restart Lipitor -Hypertension. Restart amlodipine and losartan -Diabetes mellitus type 2, insulin-dependent. ADA diet, SSI, long-acting insulin, monitor blood sugar, check A1c. Hold metformin for now -GERD. Restart PPI Anticipate possible discharge on October 26. Exam Vital Signs (past 8 hours): - 10/25/24 00:00 10/25/24 00:00 10/25/24 01:00 Pulse Rate 69 68 Respiratory Rate 20 20 Blood Pressure 105/58 L 162/79 H Pulse Oximetry 96 96 Oxygen Delivery Method Room Air 10/25/24 02:00 10/25/24 03:00 10/25/24 03:26 Pulse Rate 74 75 Respiratory Rate 24 21 Blood Pressure 177/82 H 92/71 Pulse Oximetry 98 75 L Oxygen Delivery Method Room Air 10/25/24 04:00 10/25/24 07:00 Pulse Rate 78 80 Respiratory Rate 24 24 Blood Pressure 174/91 H 184/84 H Pulse Oximetry 97 96 Oxygen Delivery Method Fraction of Inspired Oxygen 28 SaO2/FiO2 Ratio 357 Oxygen Delivery Method Room Air Oxygen Flow Rate 3 Objective Labs 10/23/24 17:50 10/25/24 07:44 Labs: Laboratory Results - last 24 hr 10/24/24 10/24/24 10/24/24 08:18 11:34 16:24 POC Whole Bld Glucose 319 H 306 H 289 H 10/24/24 10/25/24 21:05 03:00 POC Whole Bld Glucose 255 H 213 H PFSH Medical History Urinary retention COPD exacerbation History of urinary retention Hyperlipidemia History of nephrolithiasis Left nephrolithiasis Urinary retention Recurrent UTI History of prostate cancer Acne Shoulder pain Ankle pain Measles Chicken pox Prostate cancer (~2010) Anemia Benign prostatic hyperplasia GERD (gastroesophageal reflux disease) Hypertension Type 2 diabetes mellitus Parkinson's disease Congestive heart failure Surgical History S/P deep brain stimulator placement (11/2019) History of prostate biopsy Anesthesia History of knee surgery Kidney stones Family History Father Stroke Hypertension Bacterial UTI Mother Cancer Sister Hypertension Aunt Diabetes mellitus Uncle Kidney stones Social History marital status: number of children: 3 household members: spouse and family Smoking Status: Former smoker alcohol intake: never Type(s) of exercise: walking frequency: 1-2 times per week Assessment & Plan Time-Based Coding :: [TOTAL MINUTES] spent with patient and on the chart (including review of chart, obtaining history, exam, reviewing outside data, placing orders, documenting exam and treatment plan, and counseling patient) on [DATE]. Quality VTE Deep Vein Thrombosis/Pulmonary Embolism Present on Admission: No
[2024-10-25 08:34] LABS: Magnesium 2.1 mg/dL (1.6-2.3)
[2024-10-25 08:35] LABS: Alanine Aminotransferase 25 IU/L (<50); Albumin 4.1 g/dL (3.5-5.0); Albumin Globulin Ratio 1.4 (1.0-2.8); Alkaline Phosphatase 52 U/L (38-126); Blood Urea Nitrogen 23 mg/dL (9-20); Calcium 8.9 mg/dL (8.4-10.2); Carbon Dioxide 17 mmol/L (22-32); Chloride 111 mmol/L (98-107); Estimated Glomerular Filt Rate > 60 mL/min (>60); Globulin 3.0 g/dL (1.7-4.1); Glucose 113 mg/dL (70-99); Potassium 4.4 mmol/L (3.4-5.1); Sodium 139 mmol/L (137-145); Total Protein 7.1 g/dL (6.3-8.2)
[2024-10-25 08:36] LABS: HEMOLYSIS 74 (0-50)
[2024-10-25] MEDS: FINASTERIDE 5 MG TABLET PO (09:06)
[2024-10-25] MEDS: ASPIRIN EC 81 MG TABLET PO (09:07)
[2024-10-25] MEDS: POTASSIUM CHLORIDE 10 MEQ TAB PO ×2 (09:07→21:41)
[2024-10-25] MEDS: ENOXAPARIN 40 MG/0.4 ML SYRINGE SUBCUT (09:08)
[2024-10-25] MEDS: TAMSULOSIN 0.4 MG CAPSULE 0.8 MG PO (09:08)
[2024-10-25] MEDS: LOSARTAN 50 MG TABLET PO ×2 (09:08→21:42)
[2024-10-25] MEDS: GABAPENTIN 100 MG CAPSULE PO ×3 (09:08→21:42)
[2024-10-25] MEDS: INSULIN GLARGINE 100 UNIT/ML 3ML PEN 60 UNIT SUBCUT (09:09)
[2024-10-25] MEDS: LATANOPROST 0.005% OPHTH 2.5 ML 1 DROPS EYE-BOTH (09:12)
[2024-10-25] MEDS: CARBIDOPA-LEVODOPA 25/100 TABLET 3 EACH PO ×2 (09:19→17:09)
[2024-10-25] MEDS: PANTOPRAZOLE DR 20 MG TABLET PO ×2 (09:19→09:25)
[2024-10-25] MEDS: SODIUM CHLORIDE 0.9% FLUSH 10 ML IV (09:30)
[2024-10-25] MEDS: TIMOLOL 0.25% OPHTH 1 DROPS EYE-BOTH (09:30)
[2024-10-25] MEDS: ALBUTEROL 2.5 MG/3 ML NEB (ADULT) INH (09:46)
--- NOTE | 2024-10-25 13:20 | CM.DPC ---
Discharge Plan Cont. Patient is cooperative with meals and medications. Patient declined bedside monitoring, oxygen, and IV therapies. [facility] acceptance is pending Physical Therapy Eval. Currently patient is 97-99% RA. RR 20-28.
--- NOTE | 2024-10-25 18:32 | PC.NURSE ---
Pt more awake and alert. Refusal of IV and telemetry, MD aware. Pt okay with PO medicaiton. Family at bedside most of shift. Potential DC tomorrow.
[2024-10-25] MEDS: FAMOTIDINE 20 MG TABLET PO (21:40)
[2024-10-25] MEDS: ATORVASTATIN 20 MG TABLET 10 MG PO (21:41)
[2024-10-25] MEDS: INSULIN GLARGINE 100 UNIT/ML 3ML PEN 64 UNIT SUBCUT (22:18)
[2024-10-25] MEDS: INSULIN LISPRO 100 UNIT/ML 3ML VIAL SUBCUT (22:22)
[2024-10-26] VITALS (26 sets, daily range): BP systolic 163–240; BP diastolic 79–112; PULSE 65–83; RESP 16–20; TEMP 36–36.6; O2SAT 86–100
[2024-10-26 05:15] LABS: Magnesium 2.1 mg/dL (1.6-2.3)
[2024-10-26] MEDS: ASPIRIN EC 81 MG TABLET PO (08:29)
[2024-10-26] MEDS: CARBIDOPA-LEVODOPA 25/100 TABLET 3 EACH PO ×2 (08:30→15:57)
[2024-10-26] MEDS: ENTACAPONE 200 MG TABLET 100 MG PO ×4 (08:31→20:46)
[2024-10-26] MEDS: FINASTERIDE 5 MG TABLET PO (08:31)
[2024-10-26] MEDS: FAMOTIDINE 20 MG TABLET PO ×2 (08:31→20:46)
[2024-10-26] MEDS: GABAPENTIN 100 MG CAPSULE PO ×3 (08:32→20:46)
[2024-10-26] MEDS: POTASSIUM CHLORIDE 10 MEQ TAB PO ×2 (08:32→20:47)
[2024-10-26] MEDS: TAMSULOSIN 0.4 MG CAPSULE 0.8 MG PO (08:33)
[2024-10-26] MEDS: PANTOPRAZOLE DR 20 MG TABLET PO (08:33)
[2024-10-26] MEDS: LOSARTAN 50 MG TABLET PO ×2 (08:33→20:45)
[2024-10-26] MEDS: LATANOPROST 0.005% OPHTH 2.5 ML 1 DROPS EYE-BOTH (08:34)
[2024-10-26] MEDS: TIMOLOL 0.25% OPHTH 1 DROPS EYE-BOTH (08:34)
[2024-10-26] MEDS: ENOXAPARIN 40 MG/0.4 ML SYRINGE SUBCUT (08:34)
[2024-10-26] MEDS: INSULIN GLARGINE 100 UNIT/ML 3ML PEN 60 UNIT SUBCUT (08:36)
[2024-10-26] MEDS: ALBUTEROL 2.5 MG/3 ML NEB (ADULT) INH (09:09)
--- NOTE | 2024-10-26 09:30 | PT.IIE ---
Current Diagnoses Acute respiratory failure with hypoxia (10/23/24) Surgical History (Last Reviewed 09/26/24 @ 15:37 by Hayden Patel DO) Anesthesia History of knee surgery History of prostate biopsy Kidney stones S/P deep brain stimulator placement (11/2019) Medical History (Last Reviewed 09/26/24 @ 15:37 by Hayden Patel DO) Acne Anemia Ankle pain Benign prostatic hyperplasia Chicken pox Congestive heart failure COPD exacerbation GERD (gastroesophageal reflux disease) History of nephrolithiasis History of prostate cancer History of urinary retention Hyperlipidemia Hypertension Left nephrolithiasis Measles Parkinson's disease Prostate cancer (~2010) Recurrent UTI Shoulder pain Type 2 diabetes mellitus Urinary retention Urinary retention Physical Therapy Inpatient Evaluation/Re-Eval M1 PT/OT-IP Prior Functional Status Start: 10/26/24 13:09 Freq: NEEDED Status: Active Protocol: Document 10/26/24 09:30 AB (Rec: 10/26/24 13:27 AB [id number]) Medical Review Prior Functional Status Medical History Yes Reviewed Communication able to make needs known; soft speech Mobility and Gait pt stated that spouse assists him will all mobilities; stated that he is able to stand pivot to transfer using U step walker with assist from spouse; pt mainly w/c bound; spouse stated that the last time pt ambulated was when he was still getting PT ~ 6 months ago Social History Household Members spouse Living Arrangements House Number of Floors ( One Floor Floors) Number of Stairs To no steps to enter Enter/Railing? Home Environment Standard Height Toilet,Walk in Shower Home Equipment Manual Wheelchair,Shower Seat with Backrest,Hand Held Shower,Grab Bars Near Toilet,Grab Bars In Shower Additional Social pt has a U step walker History Comment M2 PT-IP Current Condition Start: 10/26/24 13:09 Freq: NEEDED Status: Active Protocol: Document 10/26/24 09:30 AB (Rec: 10/26/24 13:27 AB [id number]) Physical Therapy Current Condition Current Condition Evaluation Date 10/26/24 Treatment Diagnosis UTI; COPD; PD; difficulty in walking Onset Date 10/23/24 M3 PT-IP Subjective Start: 10/26/24 13:09 Freq: NEEDED Status: Active Protocol: Document 10/26/24 09:30 AB (Rec: 10/26/24 13:27 AB [id number]) Subjective Physical Therapy Visit Type Type Initial Evaluation Visit Start Time 09:30 Visit Stop Time 11:15 Notes pt seen for split visits: 930-945am and 1040-1115am Number of SERVICE ENGINEER Visits 0 Physical Therapy Visit Comments Patient Comments agreeable to do PT M4 PT-IP Mobility and Gait Start: 10/26/24 13:09 Freq: NEEDED Status: Active Protocol: Document 10/26/24 09:30 AB (Rec: 10/26/24 13:27 [id number]) PT-Bed Mobility Assessment Supine to Sit Supine to Sit Maximum Assistance,1 Person Assistance,2 Person Assistance,Head of Bed Elevated,Bedrails PT-Transfer Assessment Sit to and From Stand Sit to and from Maximum Assistance,2 Person Assistance,Use of Upper Stand Extremities Equipment Transfer Assistive Gait Belt,Front Wheeled Walker Device Orthotic/Prosthetic No Devices or Brace: Transfers Transfer Destination Chair Transfer Technique Stand Step Pivot Transfer Ability Level of Assist Maximum Assistance,2 Person Assistance,Use of Upper Extremities Comments Mobility Comments pt in bed. obtained PLOF and home set up. checked back on pt after rounds meeting. spouse in room and confirmed/clarified pt's PLOF and home set up. pt completed supine to sit max A x 1-2 and max cues. presents with (+) stiffness with increase posterior trunk lean, increase lateral neck trunk flexion to R. positioned body midline and cued pt to maintain. required constant repositioning. pt completed sit to stand max A x 2 and max cues and step transfer to the chair using fWW max A x 2 and max cues. pt required max A for weight shifting to be able to move/advance LLE. pt sat on the chair. positioned pt on the chair max A x 2 and max cues. call light and table placed within reach. per EMR, pt had h/o falls and falling off w/c. spouse confirmed. spouse stated that they just borrowed a w/c . informed spouse to get outpt PT eval order for w/c assessment for proper w/c fitting for pt. informed pt and spouse regarding SNF rehab and pt does not want to go to SNF. spouse somewhat agreeable to SNF but worried since spouse does not want to to go one . informed pt and spouse that pt will need 24/7 assist of 2 person and will need a mechanical lift. spouse stated that there is not enough room for a mechanical lift at home. informed case assistant regarding recommendations. PT-Balance Assessment Sitting Balance and Reactions Static Sitting Poor Balance Ability Dynamic Sitting Poor Balance Ability Standing Balance and Reactions Static Standing Poor Balance Ability Dynamic Standing Poor Balance Ability Device Used FWW M5 PT-IP Objective Assessments Start: 10/26/24 13:09 Freq: NEEDED Status: Active Protocol: Document 10/26/24 09:30 AB (Rec: 10/26/24 13:27 AB [id number]) Orientation Orientation/Cognition Level of Alertness Alert Orientation Name,Place,Situation Language Function Hard of Hearing Ability Safety Awareness Decreased Safety Awareness Memory Description Short Term Impaired Gross Range of Motion Lower Extremity ROM Assessment Within Functional Limits Strength Lower Extremity Strength Assessment Within Functional Limits Muscle Tone Comments Muscle Tone Comments increase overall tightness/stiffness due to PD M6 PT-IP Treatment Start: 10/26/24 13:09 Freq: NEEDED Status: Active Protocol: Document 10/26/24 09:30 AB (Rec: 10/26/24 13:27 AB [id number]) Physical Therapy Treatment Education Education Provided Safety M7 PT-IP Assessment and Plan Start: 10/26/24 13:09 Freq: NEEDED Status: Active Protocol: Document 10/26/24 09:30 AB (Rec: 10/26/24 13:27 AB [id number]) PT Summary Assessment and Plan Potential Rehabilitation Fair Potential Status of Condition Evolving at Evaluation Summary Impairments Pain,ROM,Strength,Balance,Coordination,Sensation,Tone, Cognition,Bed Mobility,Transfers,Gait,Activity Tolerance Assessment Summary pt is a 74y/o M who is admitted for UTI; COPD. pt has dx of PD contributing to current level of function. pt requiring max Ax 2 and max cues with bed mobility and transfers using FWW. Recommending SNF rehab but pt refusing. If pt goes home: will need 2 person assist / and mechanical lift for transfers. pt will also need outpt PT w/c assessment. Goals Bed Mobility Goal Minimal Assistance Transfer Goal Minimal Assistance,Front Wheeled Walker Gait Goal Minimal Assistance,Front Wheel Walker Gait Distance 25 Other Goals improve bed mobility, transfers ambulation using FWW ~ 50 ft CGA Days to Meet Goals 10 Frequency of Treatment Frequency Of Once a Day Treatment Treatment Plan Physical Therapy Bed Mobility Training,Transfer Training,Gait Training, Treatment Plan Therapeutic Exercise,Balance Retraining,Discharge Planning,Hot or Cold Pack,Neuromuscular Re-ed, Coordination Retraining,Manual Therapy Precautions Other Precautions falls Recommendations To Nursing Amount of Assist Mechanical Lift Needed Discharge Recommendations PT Discharge SNF Rehab Recommendations Equipment Needed for mechanical lift Home Before Discharge Transportation Needs Wheelchair/Cabulance,Stretcher/Ambulance at Discharge - PT assist 2
[2024-10-26] MEDS: ALBUTEROL/IPRATROPIUM 3 ML AMPUL INH ×3 (11:14→19:24)
[2024-10-26] MEDS: CARBIDOPA-LEVODOPA 25/100 TABLET 2.5 EACH PO ×2 (12:12→20:47)
[2024-10-26] MEDS: INSULIN LISPRO 100 UNIT/ML 3ML VIAL SUBCUT ×3 (12:13→20:52)
--- NOTE | 2024-10-26 13:39 | P.PN_ITS ---
Subjective Subjective Interval history: Summary: 10/24: 73 year old male with history of advanced Parkinson disease, wheelchair- bound, prostate cancer with chronic Churchill catheter, recurrent UTIs, pacemaker, diabetes mellitus type 2, hypertension, CHF, hyperlipidemia, presented to the ER with respiratory distress similar to his hospitalizations in May 2023 and March 2024 requiring high flow oxygen. Found to have sepsis with ESBL UTI. The patient reports increased shortness of breath in the last couple of weeks. Falling several times from his wheelchair. Denies any fever, cough, chest pain, palpitations, nausea, vomiting, abdominal pain, diarrhea or dysuria. Laboratory shows WBC 10.8, H&H 12.7/38.1, sodium 132, potassium 4.5, creatinine 0.96, blood sugar 251, lactate 7.3, LFT normal, magnesium 1.3, troponin less than 0.0 12, BNP 216, lipase 73, procalcitonin 0.07, UA shows UTI and hematuria, respiratory viral panel negative. CTA of the chest shows no PE and cardiomegaly. Abdominal CT scan shows moderate constipation and diffuse bladder wall thickening concerning for cystitis. In the ER he was given albuterol, cefepime, vancomycin, fluid bolus, Solu-Medrol 125 mg IV and magnesium 2 g IV. 10/25: His breathing is a little better, still wheezing. 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 S: Continues to improve, does have some wheezing but it was much better. No urinary symptoms. He does have a suprapubic catheter. See recent urology note indicating no treatment for chronic colonization unless there is compelling evidence of a urinary tract infection per his urologist. The patient has no other symptoms mental status has improved. He can likely go home in a day or so. His believes that they have an infectious disease appointment at [facility], I did send a message today to see if I can confirm the appointment and date and time. Dr. Almeida 11/13 @ 9:30 AM. Exam Vital Signs (past 8 hours): - 10/26/24 07:40 10/26/24 07:40 10/26/24 07:41 Pulse Rate 83 Respiratory Rate Blood Pressure 210/98 H 220/101 H Pulse Oximetry 99 Oxygen Delivery Method 10/26/24 07:41 10/26/24 07:42 10/26/24 07:43 Pulse Rate 83 Respiratory Rate Blood Pressure 240/112 H Pulse Oximetry 98 89 L Oxygen Delivery Method 10/26/24 08:54 10/26/24 09:00 10/26/24 09:09 Pulse Rate 65 79 Respiratory Rate 18 Blood Pressure Pulse Oximetry 86 L 96 98 Oxygen Delivery Method Room Air 10/26/24 09:30 10/26/24 11:14 10/26/24 11:18 Pulse Rate 76 69 Respiratory Rate 16 Blood Pressure Pulse Oximetry 94 97 91 Oxygen Delivery Method Room Air 10/26/24 11:42 10/26/24 11:43 10/26/24 11:43 Pulse Rate Respiratory Rate Blood Pressure 174/79 H Pulse Oximetry 95 95 Oxygen Delivery Method Fraction of Inspired Oxygen 21 SaO2/FiO2 Ratio 466 Oxygen Delivery Method Room Air Oxygen Flow Rate 0 Narrative Exam Narrative: NAD, alert and oriented. Fluent speech. Lungs are clear, normal rate and effort. Heart is regular, no murmur gallop or rub. Abdomen is soft, non distended. Extremities are free of edema. Objective ECG Impression: Intervals [place] Rate: 105 P: -2 LA: 148 QRS: -32 QRSD: 80 T: 48 QT: 340 QTc: 449 Interpretive Statements Sinus tachycardia Left axis deviation Minimal voltage criteria for LVH, may be normal variant ( R in aVL ) ST & T wave abnormality, consider lateral ischemia Imaging Multiple studies:: Radiologist's impression: KUB: No evidence of bowel obstruction. No gross pneumoperitoneum. Chest CTA: 1. Degraded study due to motion artifacts. 2. No central pulmonary emboli. Bilateral subsegmental pulmonary artery branches are suboptimally opacified, small distal pulmonary emboli cannot be excluded. 3. Mild peripheral interstitial reticular thickening concerning for mild min item is. No focal infiltrate, pleural effusion or pneumothorax. Abdomen pelvis CT: 1. Presence of suprapubic catheter with diffuse bladder wall thickening concerning for cystitis. No definite bladder wall mass. No obstructing renal stones or hydronephrosis. Bilateral perinephric fat stranding concerning for pyelonephritis suggest clinical correlation. 2. Moderate constipation. No bowel obstruction or abnormal bowel wall thickening. No abscess collection. No free fluid or free air. 3. Other chronic findings as above. CXR: No acute cardiopulmonary abnormality is seen. Echo: The study quality was technically difficult. Left ventricular wall thickness is mildly increased. The ejection fraction is estimated to be 60-65%. Normal diastolic function. The right ventricle is normal in size and function. No obvious valvular abnormalities. Pulmonary artery pressures cannot be estimated because of the lack of a measurable TR jet velocity. Labs 10/23/24 17:50 10/25/24 07:44 Labs: Laboratory Results - last 24 hr 10/25/24 10/25/24 10/26/24 17:03 19:42 04:30 POC Whole Bld Glucose 120 H 230 H D Magnesium 2.1 Vancomycin Peak Vancomycin Trough 5.9 L 10/26/24 10/26/24 10/26/24 07:44 07:55 11:42 POC Whole Bld Glucose 83 D 150 H Magnesium Vancomycin Peak 5.6 L Vancomycin Trough [facility] Medical History Urinary retention COPD exacerbation History of urinary retention Hyperlipidemia History of nephrolithiasis Left nephrolithiasis Urinary retention Recurrent UTI History of prostate cancer Acne Shoulder pain Ankle pain Measles Chicken pox Prostate cancer (~2010) Anemia Benign prostatic hyperplasia GERD (gastroesophageal reflux disease) Hypertension Type 2 diabetes mellitus Parkinson's disease Congestive heart failure Surgical History S/P deep brain stimulator placement (11/2019) History of prostate biopsy Anesthesia History of knee surgery Kidney stones Family History Father Stroke Hypertension Bacterial UTI Mother Cancer Sister Hypertension Aunt Diabetes mellitus Uncle Kidney stones Social History marital status: number of children: 3 household members: spouse Smoking Status: Former smoker alcohol intake: never Type(s) of exercise: walking frequency: 1-2 times per week Assessment & Plan Assessment & Plan narrative: 1. COPD exacerbation, active. This is improving. 2. No UTI (H/O ESBL with suprapubic cath and colonization) 3. Hypomagnesemia, improved. Chronic medical problems: -Advanced Parkinson disease. Restart carbidopa levodopa -Hyperlipidemia. Restart Lipitor -Hypertension. Restart amlodipine and losartan -Diabetes mellitus type 2, insulin-dependent. ADA diet, SSI, long-acting insulin, monitor blood sugar, check A1c. Hold metformin for now -GERD. PPI PLAN: -continue steroids and bronchodilators for an additional day. He will likely be able to go home on TuesdayOctober 27. -we had advised no antibiotics, he does have an appointment with [facility] on November 13 at 9:30 a.m. as noted above. Time-Based Coding :: [TOTAL MINUTES] spent with patient and on the chart (including review of chart, obtaining history, exam, reviewing outside data, placing orders, documenting exam and treatment plan, and counseling patient) on [DATE]. Quality VTE Deep Vein Thrombosis/Pulmonary Embolism Present on Admission: No
--- NOTE | 2024-10-26 15:24 | CM.DPNOTE ---
DCP Continued: Reviewed EMR and team rounds for pt?s medical status. Per hospitalist, pt to stay one more night to monitor ESBL outcome, also consulting with [facility] for outpatient follow up. Per PT, pt recommended for SNF Rehab and/or Maxim Lift installation in house to assist as pt is currently a 2 person assist. Per PT, pt and decline maxim lift at this time as well as SNF Rehab. Per PT, pt able to tolerate being in a chair and should be able to transport in POV. DCP entered room, introduced self and role to both pt and spouse. Pt and spouse were both in agreement with home with home health plan on 10/27, confirmed declination of SNF referral. Pt agreed to continuing with previously established [facility] with add on services of PT, OT and HH Aide. Previously only had RN services. DCP cancelled [facility] referral via phone call to [facility]. DCP sent updated clinicals and new MD orders to [facility] via secure email. *Will need discharge summary sent via secure email upon discharge. Plan: Anticipating dc home with spouse transport on Tuesday, 10/27. [facility] to follow with care. CM Team will continue to follow for coordination of discharge plans. FIDELINA Chavira
--- NOTE | 2024-10-26 17:51 | PC.NURSE ---
Pt OOB with PT today using FWW into reclining chair. Good appetite. Plan for DC home tomorrow with home health getting set up to help support .
--- NOTE | 2024-10-26 20:39 | PM.PN.1 ---
Subjective Subjective Interval history: 73 yo male w/advanced parkinson's disease s/p DBS, w/c bound, hx of prostate cancer, s/p suprapubic cath placement for urinary retention (08/2023), hx of recurrent UTIs, s/p PPM, DM2, HTN, CHF, HLD who was admitted w/acute hypoxic respiratory failure requiring high flow O2 (as high as 60lpm). CT scan done on admission revealed moderate constipation and bladder wall thickening concerning for possible cystitis. He has a hx of UTIs as he is s/p suprapubic cath placement. Last Echo revealed an LVEF 60-65%. Patient reports that he is feeling pretty good today. He and his both note his cognition is not quite back to baseline but has been significantly improving. He would like to go home as he feels he is ready. His does express concern as she is his only caregiver. She is worried about the risk of having to bring him back to the hospital if he becomes ill again. He denies any shortness of breath, CP, nausea or vomiting. Exam Vital Signs (past 8 hours): - 10/26/24 15:04 10/26/24 15:05 10/26/24 15:12 Temperature Pulse Rate 72 69 Respiratory Rate 16 Blood Pressure Pulse Oximetry 98 96 91 Oxygen Delivery Method Room Air 10/26/24 15:12 10/26/24 16:00 10/26/24 19:24 Temperature 97.1 F L Pulse Rate 77 Respiratory Rate 20 Blood Pressure 170/82 H Pulse Oximetry 99 Oxygen Delivery Method Room Air 10/26/24 20:00 Temperature 97.8 F Pulse Rate 76 Respiratory Rate Blood Pressure 182/85 H Pulse Oximetry 98 Oxygen Delivery Method Fraction of Inspired Oxygen 21 SaO2/FiO2 Ratio 466 Oxygen Delivery Method Room Air Oxygen Flow Rate 0 Narrative Exam Narrative: GEN: Elderly male, Alert and oriented x 3, NAD HEENT:NC, Face symmetric CHEST: Respiratory excursions symmetric, CTAB CV: RRR, no M/R/G ABD: Soft, NT/ND, BT present in all 4 quadrants, no organomegaly or masses EXTR: warm, well perfused, no C/E, some mottling noted to the left lower extremity (chronic per patient and spouse) SKIN: warm and dry, no rash NEURO: Alert and oriented x 3, nonfocal, patient is able to name month, year, season, time of day, location, his age and birthday, his 's age and birthday, the president, the season. Was unable to correctly name the day of the week and the date. Objective Labs 10/27/24 04:44 10/27/24 04:44 Labs: Laboratory Results - last 24 hr 10/26/24 10/26/24 10/26/24 04:30 07:44 07:55 POC Whole Bld Glucose 83 D Magnesium 2.1 Vancomycin Peak 5.6 L Vancomycin Trough 5.9 L 10/26/24 10/26/24 10/26/24 11:42 16:32 20:05 POC Whole Bld Glucose 150 H 238 H 310 H Magnesium Vancomycin Peak Vancomycin Trough PFSH Medical History Urinary retention COPD exacerbation History of urinary retention Hyperlipidemia History of nephrolithiasis Left nephrolithiasis Urinary retention Recurrent UTI History of prostate cancer Acne Shoulder pain Ankle pain Measles Chicken pox Prostate cancer (~2010) Anemia Benign prostatic hyperplasia GERD (gastroesophageal reflux disease) Hypertension Type 2 diabetes mellitus Parkinson's disease Congestive heart failure Surgical History S/P deep brain stimulator placement (11/2019) History of prostate biopsy Anesthesia History of knee surgery Kidney stones Family History Father Stroke Hypertension Bacterial UTI Mother Cancer Sister Hypertension Aunt Diabetes mellitus Uncle Kidney stones Social History marital status: number of children: 3 household members: spouse Smoking Status: Former smoker alcohol intake: never Type(s) of exercise: walking frequency: 1-2 times per week Assessment & Plan Assessment & Plan narrative: 1. Acute hypoxic respiratory failure Now resolved. CT PE was negative for PE, pneumonia. He had no cardiomegaly or pleural effusions. Etiology was likely COPD exacerbation. 2. Recurrent UTIs in the setting of a SP cath Patient was not symptomatic on admission. Urine culture was positive for ESBL E coli [id number] CFUs/mL, and Klebsiella aerogenous [id number] CFU/mL. This is felt to be colonization, not infection. 3. Advanced Parkinson's disease s/p DBS Continue his usual home medication 4. DM2 Blood sugar was as high as 288 yesterday. Overall, it has been significantly improved today ranging from 81-120. 5. Chronic CHFpEF Stable and currently euvolemic. Last echo done May 22 of this year revealed normal LV with an ejection fraction of 60-65%. Normal right ventricular size and function. No significant valvular abnormalities. 6. HTN Blood pressures were significantly elevated yesterday as high as 201/94. He is normotensive today. Continue usual home medicines. Code status DNR Prophy On Lovenox. Dispo Discharge home today with home health services to begin next week Time-Based Coding :: [TOTAL MINUTES] spent with patient and on the chart (including review of chart, obtaining history, exam, reviewing outside data, placing orders, documenting exam and treatment plan, and counseling patient) on [DATE]. Quality VTE Deep Vein Thrombosis/Pulmonary Embolism Present on Admission: No
[2024-10-26] MEDS: ATORVASTATIN 20 MG TABLET 10 MG PO (20:45)
[2024-10-26] MEDS: INSULIN GLARGINE 100 UNIT/ML 3ML PEN 64 UNIT SUBCUT (20:51)
[2024-10-26 21:01] LABS: Alanine Aminotransferase 13 IU/L (<50); Albumin 3.8 g/dL (3.5-5.0); Albumin Globulin Ratio 1.4 (1.0-2.8); Alkaline Phosphatase 81 U/L (38-126); Blood Urea Nitrogen 22 mg/dL (9-20); Calcium 9.1 mg/dL (8.4-10.2); Carbon Dioxide 23 mmol/L (22-32); Chloride 106 mmol/L (98-107); Estimated Glomerular Filt Rate > 60 mL/min (>60); Globulin 2.7 g/dL (1.7-4.1); Glucose 288 mg/dL (70-99); HEMOLYSIS < 15 (0-50); Potassium 4.3 mmol/L (3.4-5.1); Sodium 134 mmol/L (137-145); Total Protein 6.5 g/dL (6.3-8.2)
[2024-10-27] MEDS: ENTACAPONE 200 MG TABLET 100 MG PO ×4 (01:28→15:44)
[2024-10-27] MEDS: CARBIDOPA-LEVODOPA 25/100 TABLET 2.5 EACH PO ×2 (01:28→12:06)
[2024-10-27 05:23] LABS: Add Manual Diff / Slide Review NO; Hematocrit 38.5 % (41-53); Hemoglobin 13.2 g/dL (13.5-17.5); Lymphocytes Absolute Auto 2300 /uL (1100-4500); Mean Corpuscular HGB Conc 34.3 % (30-36); Mean Corpuscular Hemoglobin 29.5 PG (26-34); Mean Corpuscular Volume 85.9 fL (80-100); Platelet Count 211 X10^3/uL (150-400)
[2024-10-27 05:43] LABS: Blood Urea Nitrogen 20 mg/dL (9-20); Calcium 9.0 mg/dL (8.4-10.2); Carbon Dioxide 24 mmol/L (22-32); Chloride 107 mmol/L (98-107); Estimated Glomerular Filt Rate > 60 mL/min (>60); Glucose 121 mg/dL (70-99); HEMOLYSIS 17 (0-50); Potassium 4.1 mmol/L (3.4-5.1); Sodium 137 mmol/L (137-145)
[2024-10-27] MEDS: CARBIDOPA-LEVODOPA 25/100 TABLET 3 EACH PO ×2 (06:45→15:44)
[2024-10-27 07:52] VITALS: O2SAT 97
[2024-10-27 07:53] VITALS: BP 122/90; PULSE 63; O2SAT 98
[2024-10-27 08:23] VITALS: BP 122/90; PULSE 63; RESP 18; TEMP 36.5; O2SAT 98
--- NOTE | 2024-10-27 09:05 | PT.IPTN ---
Current Diagnoses Acute respiratory failure with hypoxia (10/23/24) Physical Therapy Treatment Note M2 PT-IP Current Condition Start: 10/26/24 13:09 Freq: NEEDED Status: Active Protocol: Document 10/26/24 09:30 AB (Rec: 10/26/24 13:27 AB [id number]) Physical Therapy Current Condition Current Condition Evaluation Date 10/26/24 Treatment Diagnosis UTI; COPD; PD; difficulty in walking Onset Date 10/23/24 M3 PT-IP Subjective Start: 10/26/24 13:09 Freq: NEEDED Status: Active Protocol: Document 10/27/24 09:05 AB (Rec: 10/27/24 09:42 AB Desktop) Subjective Physical Therapy Visit Type Type Treatment Note Visit Start Time 09:05 Visit Stop Time 09:30 Number of SHORE MAN Visits 0 Physical Therapy Visit Comments Patient Comments agreeable to do PT M4 PT-IP Mobility and Gait Start: 10/26/24 13:09 Freq: NEEDED Status: Active Protocol: Document 10/27/24 09:05 AB (Rec: 10/27/24 09:42 AB Desktop) PT-Bed Mobility Assessment Supine to Sit Supine to Sit Maximum Assistance Scooting Scooting to Edge of Maximum Assistance Bed PT-Transfer Assessment Sit to and From Stand Sit to and from Moderate Assistance,Maximum Assistance,1 Person Stand Assistance,Use of Upper Extremities Equipment Transfer Assistive Gait Belt,Front Wheeled Walker Device Orthotic/Prosthetic No Devices or Brace: Transfers Transfer Destination Chair Transfer Technique Stand Step Pivot Transfer Ability Level of Assist Minimal Assistance,1 Person Assistance,Use of Upper Extremities Comments Mobility Comments pt in bed and agreeable to do PT. pt able to respond to questions quicker and clearer today. supine to sit max A and max cues. able to sit on EOB CGA. (+) SOB. O2 sat checked: 100% at RA. sit to stand mod A and cues and step transfer to chair using FWW min A and cues. pt agreed to ambulate. sit to stand from chair max A and max cues and ambulated using FWW ~ 8 ft min A and cues and chair follow. positioned pt on chair and set up for breakfast. call light within reach. chair alarm on. left pt with NAC. Gait Assessment Gait Gait Assistance Minimum Assistance Required: Distance (Feet) 8 Able to Maintain Yes Weight Bearing Status During Gait Assistive Devices Assistive Device Gait Belt,Front Wheeled Walker Orthotic/Prosthetic No Devices or Brace: Gait Deviations General Gait Pattern Decreased Stride Length,Decreased Feet Clearance,Narrow Based Gait,Step-to Gait Factors Limiting Gait Function Factors Limiting Abnormal Tonal Influences,Decreased Activity Tolerance, Gait Function Decreased Strength,Difficulty Following Directions,Pain ,Poor Balance,Poor Safety Awareness,Respiratory Distress M5 PT-IP Objective Assessments Start: 10/26/24 13:09 Freq: NEEDED Status: Active Protocol: Document 10/26/24 09:30 AB (Rec: 10/26/24 13:27 AB [id number]) Orientation Orientation/Cognition Level of Alertness Alert Orientation Name,Place,Situation Language Function Hard of Hearing Ability Safety Awareness Decreased Safety Awareness Memory Description Short Term Impaired Gross Range of Motion Lower Extremity ROM Assessment Within Functional Limits Strength Lower Extremity Strength Assessment Within Functional Limits Muscle Tone Comments Muscle Tone Comments increase overall tightness/stiffness due to PD M6 PT-IP Treatment Start: 10/26/24 13:09 Freq: NEEDED Status: Active Protocol: Document 10/27/24 09:05 AB (Rec: 10/27/24 09:42 AB Desktop) Physical Therapy Treatment Education Education Provided Safety M7 PT-IP Assessment and Plan Start: 10/26/24 13:09 Freq: NEEDED Status: Active Protocol: Document 10/27/24 09:05 AB (Rec: 10/27/24 09:42 AB Desktop) PT Summary Assessment and Plan Potential Rehabilitation Fair Potential Summary Impairments Pain,ROM,Strength,Balance,Coordination,Sensation,Tone, Cognition,Bed Mobility,Transfers,Gait,Activity Tolerance Progress Towards Slow Progress due to Medical Issues,Slow Progress due Goals to Activity Tolerance Assessment Summary pt progressing with mobility and required mod to max A for sit to stand and transfer using FWW min A and cues. pt refuses SNF rehab and wants to go home and spouse to assist. will conduct caregiver training when appropriate. pt also will benefit from HHPT. Goals Bed Mobility Goal Minimal Assistance Transfer Goal Minimal Assistance,Front Wheeled Walker Gait Goal Minimal Assistance,Front Wheel Walker Gait Distance 25 Other Goals improve bed mobility, transfers ambulation using FWW ~ 50 ft CGA Days to Meet Goals 10 Frequency of Treatment Frequency Of Once a Day Treatment Treatment Plan Physical Therapy Bed Mobility Training,Transfer Training,Gait Training, Treatment Plan Therapeutic Exercise,Balance Retraining,Discharge Planning,Hot or Cold Pack,Neuromuscular Re-ed, Coordination Retraining,Manual Therapy Precautions Other Precautions falls Recommendations To Nursing Amount of Assist 1 Person Assist Needed Discharge Recommendations PT Discharge Home with 30/08 Assist Available,Home Health,SNF Rehab, Recommendations Home vs SNF Transportation Needs Private Vehicle,Wheelchair/Cabulance at Discharge - PT assist 1
[2024-10-27 09:18] VITALS: PULSE 65; O2SAT 99
[2024-10-27] MEDS: LOSARTAN 50 MG TABLET PO (09:57)
[2024-10-27] MEDS: GABAPENTIN 100 MG CAPSULE PO ×2 (09:57→15:44)
[2024-10-27] MEDS: POTASSIUM CHLORIDE 10 MEQ TAB PO (09:57)
[2024-10-27] MEDS: ASPIRIN EC 81 MG TABLET PO (09:57)
[2024-10-27] MEDS: INSULIN GLARGINE 100 UNIT/ML 3ML PEN 75 UNIT SUBCUT (09:58)
[2024-10-27] MEDS: FINASTERIDE 5 MG TABLET PO (09:58)
[2024-10-27] MEDS: FAMOTIDINE 20 MG TABLET PO (09:58)
[2024-10-27] MEDS: TAMSULOSIN 0.4 MG CAPSULE 0.8 MG PO (09:58)
[2024-10-27] MEDS: ENOXAPARIN 40 MG/0.4 ML SYRINGE SUBCUT (09:58)
[2024-10-27] MEDS: TIMOLOL 0.25% OPHTH 1 DROPS EYE-BOTH (09:59)
[2024-10-27] MEDS: LATANOPROST 0.005% OPHTH 2.5 ML 1 DROPS EYE-BOTH (09:59)
[2024-10-27] MEDS: INSULIN LISPRO 100 UNIT/ML 3ML VIAL SUBCUT (12:08)
[2024-10-27 12:31] VITALS: PULSE 65; RESP 18; O2SAT 98
[2024-10-27] MEDS: ALBUTEROL/IPRATROPIUM 3 ML AMPUL INH (12:31)
[2024-10-27 12:32] VITALS: PULSE 66; O2SAT 97
--- NOTE | 2024-10-27 15:09 | PM.DS.1 ---
History of Present Illness History of Present Illness Chief complaint: SOB -resp failure Narrative: Per H&P: 73 years old male with history of advanced Parkinson disease, wheelchair-bound, prostate cancer with chronic Churchill catheter, recurrent UTIs, pacemaker, diabetes mellitus type 2, hypertension, CHF, hyperlipidemia, presented to the ER with respiratory distress similar to his hospitalizations in May 2023 and March 2024 requiring high flow oxygen. Found to have sepsis with ESBL UTI. The patient reports increased shortness of breath in the last couple of weeks. Falling several times from his wheelchair. Denies any fever, cough, chest pain, palpitations, nausea, vomiting, abdominal pain, diarrhea or dysuria. Laboratory shows WBC 10.8, H&H 12.7/38.1, sodium 132, potassium 4.5, creatinine 0.96, blood sugar 251, lactate 7.3, LFT normal, magnesium 1.3, troponin less than 0.0 12, BNP 216, lipase 73, procalcitonin 0.07, UA shows UTI and hematuria, respiratory viral panel negative. CTA of the chest shows no PE and cardiomegaly. Abdominal CT scan shows moderate constipation and diffuse bladder wall thickening concerning for cystitis. In the ER he was given albuterol, cefepime, vancomycin, fluid bolus, Solu-Medrol 125 mg IV and magnesium 2 g IV. Discharge Providers Provider Date of admission: 10/23/24 20:55 Discharge Date: 10/27/24 Primary care physician: Ravindra Goldsmith DO Consults: 10/23/24 20:35 Consult to Cardio/Pulmonary Rehabilitation Routine Comment: Physician Instructions: Evaluate and treat 10/23/24 22:07 Consult to Pharmacy Routine Comment: ... 10/24/24 07:48 Consult to Pharmacy Routine Comment: fall risk 10/25/24 14:19 Consult to Physical Therapy Evaluate & Treat Comment: Physician Instructions: Evaluate and Treat 10/26/24 14:15 Consult to Home Health Routine Comment: RN, PT, OT, HH Aide Reason For Exam: COPD exacerbation, UTI, Hx of Parkinson's Discharge provider: Ann Reyes MD Summary Hospital Course Discharge Diagnosis: 1. Acute hypoxic respiratory failure, resolved 2. COPD exacerbation 3. Recurrent UTIs in the setting of a SP cath 4. Advanced Parkinson's disease s/p DBS 5. DM2 6. Chronic CHFpEF, stable 7. HTN Hospital Course: 73 yo male w/advanced parkinson's disease s/p DBS, w/c bound, hx of prostate cancer, s/p suprapubic cath placement for urinary retention (08/2023), hx of recurrent UTIs, s/p PPM, DM2, HTN, CHF, HLD who was admitted w/acute hypoxic respiratory failure requiring high flow O2 (as high as 60lpm). He was admitted w/COPD exacerbation, placed on nebs, briefly on IV abx and steroids. He did briefly have hyperglycemia d/t steroids but that resolved after he was placed on po prednisone. CT scan done on admission revealed moderate constipation and bladder wall thickening concerning for possible cystitis. He has a hx of UTIs as he is s/p suprapubic cath placement. Urine cx grew ESBL E coli and klebsiella - both were in volumes consistent w/chronic colonization. He will f/u w/Dr. Almeida on 11/13/24 as previously scheduled. His respiratory sxs had resolved and he was stable in room air by the date of d/c. He did have very mild disorientation that was improving at d/c as well. He is d/c'd in stable condition. Status at Discharge Cognitive/behavioral status at discharge: oriented Functional status at discharge: wheelchair bound Overall status at discharge: patient is progressing back to baseline Exam Vital Signs (past 8 hours): - 10/27/24 07:52 10/27/24 07:53 10/27/24 07:53 Temperature Pulse Rate 63 Respiratory Rate Blood Pressure 122/90 Pulse Oximetry 97 98 Oxygen Delivery Method Oxygen Flow Rate Fraction of Inspired Oxygen 10/27/24 08:23 10/27/24 09:18 10/27/24 12:31 Temperature 97.7 F Pulse Rate 63 65 65 Respiratory Rate 18 18 Blood Pressure 122/90 Pulse Oximetry 98 99 98 Oxygen Delivery Method Room Air Oxygen Flow Rate 0 Fraction of Inspired Oxygen 21 10/27/24 12:32 Temperature Pulse Rate 66 Respiratory Rate Blood Pressure Pulse Oximetry 97 Oxygen Delivery Method Oxygen Flow Rate Fraction of Inspired Oxygen Fraction of Inspired Oxygen 21 SaO2/FiO2 Ratio 466 Oxygen Delivery Method Room Air Oxygen Flow Rate 0 Objective Labs 10/27/24 04:44 10/27/24 04:44 Labs: Laboratory Results - last 24 hr 10/26/24 10/26/24 10/26/24 16:32 20:05 20:40 WBC RBC Hgb Hct MCV MCH MCHC RDW Plt Count Neut % (Auto) Lymph % (Auto) [place] % (Auto) Eos % (Auto) Baso % (Auto) Neut # (Auto) Lymph # (Auto) [place] # (Auto) Eos # (Auto) Baso # (Auto) Sodium 134 L Potassium 4.3 Chloride 106 Carbon Dioxide 23 BUN 22 H Creatinine 0.81 Estimated GFR > 60 BUN/Creatinine Ratio 27.2 H Glucose 288 H D POC Whole Bld Glucose 238 H 310 H Calcium 9.1 Total Bilirubin 0.5 AST 23 ALT 13 Alkaline Phosphatase 81 Total Protein 6.5 Albumin 3.8 Globulin 2.7 Albumin/Globulin Ratio 1.4 10/27/24 10/27/24 10/27/24 04:44 08:09 11:51 WBC 7.7 RBC 4.48 L Hgb 13.2 L Hct 38.5 L MCV 85.9 MCH 29.5 MCHC 34.3 RDW 15.1 H Plt Count 211 Neut % (Auto) 60.6 Lymph % (Auto) 29.7 [place] % (Auto) 8.1 Eos % (Auto) 0.9 L Baso % (Auto) 0.7 Neut # (Auto) 4700 Lymph # (Auto) 2300 [place] # (Auto) 600 Eos # (Auto) 100 Baso # (Auto) 100 Sodium 137 Potassium 4.1 Chloride 107 Carbon Dioxide 24 BUN 20 Creatinine 0.74 Estimated GFR > 60 BUN/Creatinine Ratio 27.0 H Glucose 121 H D POC Whole Bld Glucose 81 D 120 H Calcium 9.0 Total Bilirubin AST ALT Alkaline Phosphatase Total Protein Albumin Globulin Albumin/Globulin Ratio COUNTS INCLUDE 234 BEDS AT THE [facility] Medical History Urinary retention COPD exacerbation History of urinary retention Hyperlipidemia History of nephrolithiasis Left nephrolithiasis Urinary retention Recurrent UTI History of prostate cancer Acne Shoulder pain Ankle pain Measles Chicken pox Prostate cancer (~2010) Anemia Benign prostatic hyperplasia GERD (gastroesophageal reflux disease) Hypertension Type 2 diabetes mellitus Parkinson's disease Congestive heart failure Surgical History S/P deep brain stimulator placement (11/2019) History of prostate biopsy Anesthesia History of knee surgery Kidney stones Family History Father Stroke Hypertension Bacterial UTI Mother Cancer Sister Hypertension Aunt Diabetes mellitus Uncle Kidney stones Social History marital status: number of children: 3 household members: spouse Smoking Status: Former smoker alcohol intake: never Type(s) of exercise: walking frequency: 1-2 times per week Discharge Plan Discharge Plan Patient Disposition: Home Health Service Provider Discharge Comment: You were admitted with a COPD exacerbation and respiratory failure related to that. He did not have a urinary tract infection, but rather you have chronic colonization with bacteria because of your suprapubic catheter. You do not need any antibiotics. We discussed that you have some mild residual which we expect to improve when you go home, resuming normal sleep schedule, and return to your usual activities. Please follow-up with Dr. Almeida on November 13 at 9:30 a.m. as scheduled. CHANGES: Your insulin dose has been adjusted. Please review new dose on your medication list. RECOMMENDATIONS: Talk to your urologist about discontinuing tamsulosin now that you have a suprapubic catheter in. Return to the ED: Fevers, chills, sweats, increased confusion Inability to hold down food, fluids, or medication Recurrent shortness of breath Discharge orders & Medications Prescriptions: New prednisone 20 mg Tablet 30 mg PO DAILY Qty: 9 0RF Rx Instructions: x 3 days, then 1 tab daily x 3 days, then 1/2 tab daily x 3 days, then stop insulin glargine [Lantus Solostar U-100 Insulin] 100 unit/mL (3 mL) Insulin Pen 75 unit SUBCUT DAILY Qty: 15 0RF insulin glargine [Lantus Solostar U-100 Insulin] 100 unit/mL (3 mL) Insulin Pen 50 unit SUBCUT BEDTIME Qty: 15 0RF ipratropium-albuterol 0.5 mg-3 mg(2.5 mg base)/3 mL Solution For Nebulization 3 ml INH [id number] Qty: 90 0RF Continued atorvastatin 10 mg tablet 10 mg PO DAILY Qty: 90 3RF finasteride [Proscar] 5 mg tablet 5 mg PO DAILY Qty: 10 0RF Rx Instructions: short term for mail in (DME) Comfort Touch Ult Thin Lancets 31 gauge misc See Rx Instructions .Route Qty: 100 2RF Rx Instructions: use to check blood sugars 1-2 times per day (DME) Blood Glucose Test Strip See Rx Instructions .Route Qty: 50 5RF Rx Instructions: use to check blood sugars 1-2 times per day (DME) blood-glucose meter Mis See Rx Instructions .Route Qty: 1 0RF Rx Instructions: use to check blood sugars 1-2 times per day tamsulosin 0.4 mg capsule 0.8 mg PO DAILY Qty: 180 3RF metformin 850 mg tablet 850 mg PO TID Qty: 240 3RF ipratropium-albuterol 0.5 mg-3 mg(2.5 mg base)/3 mL solution for nebulization 3 ml inhalation Q6H PRN (Reason: shortness of breath or wheezing) Qty: 180 1RF omeprazole 20 mg capsule,delayed release(DR/EC) 20 mg PO DAILY Qty: 90 1RF losartan 50 mg tablet 50 mg PO BID Qty: 180 3RF gabapentin 100 mg capsule 100 mg PO 3XD Qty: 270 1RF potassium citrate 10 mEq (1,080 mg) tablet extended release 10 meq PO BID Qty: 180 1RF Renacidin 1,980.6 mg-59.4 mg-980.4mg/30mL solution 30 ml irrigation TID Qty: 900 3RF (DME) pen needle, diabetic [Reshma 2nd Gen Pen Needle] 32 gauge x 5/32 needle See Rx Instructions .ROUTE .COMPLEX Qty: 100 3RF Dose Instruction: Use to inject insulin two times daily Rx Instructions: Use to inject insulin two times daily potassium chloride 10 mEq tablet extended release 10 meq PO BID temazepam 15 mg capsule 15 mg PO BEDTIME PRN (Reason: sleep) selegiline HCl 5 mg tablet 5 mg PO BID Rx Instructions: administer with breakfast and lunch timolol maleate 0.25 % drops 1 drp EYE-BOTH DAILY albuterol sulfate 90 mcg/actuation HFA aerosol inhaler 1 puff inhalation Q4-6H Qty: 8.5 6RF albuterol sulfate 2.5 mg /3 mL (0.083 %) solution for nebulization 2.5 mg inhalation QID Qty: 75 2RF aspirin [Adult Low Dose Aspirin] 81 mg tablet,delayed release (DR/EC) 81 mg PO DAILY amlodipine 2.5 mg tablet 2.5 mg PO DAILY Qty: 90 3RF latanoprost 0.005 % drops 1 drp EYE-BOTH DAILY acetaminophen [Acetaminophen Extra Strength] 500 mg Tablet 500 mg PO Q6H PRN (Reason: Pain (Scale Score 4-6)) cranberry fruit 400 mg Capsule 400 mg PO DAILY Rx Instructions: administer with a meal carbidopa-levodopa 25-100 mg tablet See Rx Instructions .ROUTE .COMPLEX Patient Comments: extended release Rx Instructions: take 3 tabs at 0600, 2.5 tabs at 1000, 3 tabs at 1400, 2.5 tabs at 1800, 2.5 tabs at 2200 entacapone 200 mg Tablet 100 mg PO 5XD methenamine hippurate 1 gram tablet 1 g PO BID Qty: 180 3RF lidocaine HCl [Lidocaine Viscous] 2 % solution 1 applic mucous membrane BID-TID PRN (Reason: pain) Qty: 100 0RF Discontinued insulin glargine-yfgn 100 unit/mL (3 mL) insulin pen See Rx Instructions .ROUTE .COMPLEX Qty: 60 3RF Dose Instruction: Inject 60 units under the skin every morning AND 64 units at bedtime. Rx Instructions: Inject 60 units under the skin every morning AND 64 units at bedtime. Follow up/Referrals: Ravindra Goldsmith, DO [Primary Care Provider, Family Practice] Diet/Activity/Treatments Diet: Diet as Tolerated and Carb-consistent/Diabetic Activity: As tolerated Catheter: Suprapubic Oxygen: N/A Visit Report/Discharge Packet Stand Alone Forms: Patient Portal/API, Stroke Signs & Symptoms Discharge Data Primary Care Provider: Ravindra Goldsmith Quality VTE Deep Vein Thrombosis/Pulmonary Embolism Present on Admission: No
== END 2024-10-27 16:01 | disposition home health service (06) | DRG 189 ==
LOC: ED 20:20 → AC 20:56 → ICU 21:39
PROVIDERS: Family Medicine; Admitting Provider Internal Medicine; Emergency Provider Emergency Medicine; PCP Family Medicine; Referring Provider Emergency Medicine; Visit Provider Internal Medicine
DX: J96.01 Acute respiratory failure with hypoxia (principal); J44.1 Chronic obstructive pulmonary disease with (acute) exacerbation; I50.32 Chronic diastolic (congestive) heart failure; E83.42 Hypomagnesemia; E78.5 Hyperlipidemia, unspecified; K21.9 Gastro-esophageal reflux disease without esophagitis; I11.0 Hypertensive heart disease with heart failure; E11.65 Type 2 diabetes mellitus with hyperglycemia; G20.B1 Parkinson's disease with dyskinesia, without mention of fluctuations; T38.0X5A Adverse effect of glucocorticoids and synthetic analogues, initial encounter; N40.0 Benign prostatic hyperplasia without lower urinary tract symptoms; Z95.0 Presence of cardiac pacemaker; Z99.3 Dependence on wheelchair; Z79.4 Long term (current) use of insulin; Z87.891 Personal history of nicotine dependence; Z22.359 Carrier of Enterobacterales, unspecified; Z87.440 Personal history of urinary (tract) infections; Z66 Do not resuscitate; Z79.84 Long term (current) use of oral hypoglycemic drugs; Z93.50 Unspecified cystostomy status; Z85.46 Personal history of malignant neoplasm of prostate
CPT/HCPCS: 36415; 71045; 71275; 74018; 74177; 80048; 80053; 80202; 81001; 82805; 82962; 83605; 83690; 83735; 83880; 84145; 84484; 85025; 87040; 87077; 87086; 87186; 87633; 87797; 93005; 94640; 94660; 96365; 96367; 96375; 97163; 97530; 99285; 99291; A9270; J0692; J1650; J1815; J2060; J2270; J2919; J3375; J3475; J7613; Q9967

== ENCOUNTER → 2024-10-29 14:28 | Outpatient (CLI) | payer MEDICARE, OTHER, SELFPAY ==
[2023-05-15 20:39] VITALS: PULSE 79; RESP 22; O2SAT 94
[2024-10-23 21:57] VITALS: BMI 33.7
[2024-10-29 14:47] LABS: Bilirubin Urine UA NEGATIVE (NEGATIVE); Color Urine UA YELLOW; Glucose Urine UA 1+ g/dL (Negative); Ketones Urine UA NEGATIVE (NEGATIVE); Leukocyte Esterase Urine UA 2+ (NEGATIVE); Nitrite Urine UA NEGATIVE (Negative); Occult Blood Urine UA 2+ (Negative); Protein Urine UA 1+ (Negative); Specific Gravity Urine UA 1.015 (1.000-1.035); Urobilinogen Urine UA 0.2 E.U./dL (0.2); pH Urine UA 6.0 (4.5-8.0)
[2024-10-29 14:58] LABS: Appearance Urine UA CLOUDY
[2024-10-29 14:59] LABS: Culture Indicated Urine Specimen Cultured
== END ==
PROVIDERS: PCP Family Medicine; Visit Provider Urology
DX: N39.0 Urinary tract infection, site not specified (principal)
CPT/HCPCS: 81001; 87077; 87086; 87186

== ENCOUNTER → 2024-11-06 16:27 | Outpatient (CLI) | payer MEDICARE, OTHER, SELFPAY ==
[2023-05-15 20:39] VITALS: PULSE 79; RESP 22; O2SAT 94
[2024-10-23 21:57] VITALS: BMI 33.7
== END ==
PROVIDERS: PCP Family Medicine; Visit Provider Family Medicine
DX: N39.0 Urinary tract infection, site not specified (principal)
CPT/HCPCS: 87077; 87086; 87186

== ENCOUNTER 2024-11-20 20:37 | Inpatient (IN) | payer OTHER, MEDICARE, SELFPAY ==
[2023-05-15 20:39] VITALS: PULSE 79; RESP 22; O2SAT 94
[2024-10-23 21:57] VITALS: BMI 33.7
[2024-11-20] VITALS (13 sets, daily range): BP systolic 113–164; BP diastolic 55–74; PULSE 80–102; RESP 23–34; TEMP 37.2; O2SAT 94–97; BMI 33.9
--- NOTE | 2024-11-20 20:59 | DI.RAD.S_ITS ---
PROCEDURE: XR CHEST 1V INDICATIONS: Shortness of breath TECHNIQUE: One view of the chest was acquired. COMPARISON: [facility], , XR CHEST 1V, 10/23/2024, 18:11. FINDINGS: Surgical changes and devices: Stimulator pack projects over the right chest Lungs and pleura: Lungs are clear. No pleural effusions or pneumothorax. Mediastinum: Mediastinal contours appear normal. Heart size is normal. Bones and chest wall: No suspicious bony lesions. Overlying soft tissues appear unremarkable. Chronic left rib fractures. IMPRESSION: No acute cardiopulmonary abnormality is seen. Dictated by: Carlos Bruner M.D. on 11/20/2024 at 21:46 Approved by: Carlos Bruner M.D. on 11/20/2024 at 21:47
--- NOTE | 2024-11-20 20:59 | EKG_ITS ---
[address] [address] Test Date: 2024-11-20 Pat Name: Sarbjit Mayen Department: Room: Gender: Male [employer] Operator: MARGI : 1950 Requested By: Order Number: [id number] Reading MD: Ron Graham MD Measurements Intervals [place] Rate: 99 P: [place]: QRS: -28 QRSD: 82 T: 42 QT: 344 QTc: 441 Interpretive Statements Accelerated Junctional rhythm (baseline artifact limits interpretation) Minimal voltage criteria for LVH, may be normal variant ( R in aVL ) ST & T wave abnormality, consider inferolateral ischemia Electronically Signed On 11-21-2024 7:32:10 PDT by Ron Graham MD
[2024-11-20 21:08] LABS: Add Manual Diff / Slide Review NO; Hematocrit 35.4 % (41-53); Hemoglobin 12.0 g/dL (13.5-17.5); Lymphocytes Absolute Auto 2100 /uL (1100-4500); Mean Corpuscular HGB Conc 33.9 % (30-36); Mean Corpuscular Hemoglobin 29.2 PG (26-34); Mean Corpuscular Volume 86.3 fL (80-100); Platelet Count 236 X10^3/uL (150-400)
--- NOTE | 2024-11-20 21:08 | PC.NURSE ---
Imaging at bedside
[2024-11-20 21:10] LABS: INR 1.0 (0.9-1.3); Prothrombin Time 11.0 SECONDS (9.4-12.5)
[2024-11-20 21:15] LABS: Alanine Aminotransferase 14 IU/L (<50); Albumin 3.8 g/dL (3.5-5.0); Albumin Globulin Ratio 1.4 (1.0-2.8); Alkaline Phosphatase 100 U/L (38-126); Blood Urea Nitrogen 15 mg/dL (9-20); Calcium 9.4 mg/dL (8.4-10.2); Carbon Dioxide 17 mmol/L (22-32); Chloride 100 mmol/L (98-107); Estimated Glomerular Filt Rate > 60 mL/min (>60); Globulin 2.8 g/dL (1.7-4.1); Glucose 290 mg/dL (70-99); HEMOLYSIS < 15 (0-50); Lactate (Lactic Acid) 5.9 mmol/L (0.7-2.1); Potassium 3.8 mmol/L (3.4-5.1); Sodium 130 mmol/L (137-145); Total Protein 6.6 g/dL (6.3-8.2)
[2024-11-20 21:27] LABS: NT-proBNP (BNP-Adult 18+) 243 pg/mL (<450); Troponin I 0.015 ng/mL (0.01-0.034)
--- NOTE | 2024-11-20 22:04 | ED.SOB ---
HPI - SOB/Dyspnea <Ron Hager, DO - Last Filed: 11/20/24 22:50> General Chief Complaint: Shortness of Breath/Dyspnea Stated Complaint: resp. distress Time Seen by Provider: 11/20/24 20:47 Source: EMS Mode of arrival: EMS Limitations: no limitations History of Present Illness HPI Narrative: 74-year-old gentleman history of Parkinson's disease, wheelchair-bound with parkinsonian movements, prostate cancer in remission with chronic Churchill catheter management, pacemaker, type 2 diabetes, hypertension, history of diastolic heart failure, was weak and got short of breath sliding off his wheelchair brought in via EMS with shortness of breath. He denies any injuries from the fall. EMS given given dexamethasone and DuoNeb prior to arrival here. He denies any headache dizziness loss of consciousness chest pain back pain urinary complaints abdominal pain nausea vomiting diarrhea. States breathing treatment did help some with the shortness of breath. Other than what is stated 14 point review of system is negative. Related Data Home Medications ?Medication ?Instructions ?Recorded ?Confirmed latanoprost 0.005 % eye drops 1 drp EYE-BOTH DAILY 06/02/22 11/06/24 aspirin 81 mg tablet,delayed 81 mg PO DAILY 10/21/22 11/06/24 release (Adult Low Dose Aspirin) acetaminophen 500 mg tablet 500 mg PO Q6H PRN Pain (Scale 04/03/23 11/06/24 (Acetaminophen Extra Strength) Score 4-6) carbidopa 25 mg-levodopa 100 mg See Rx Instructions .Route .COMPLEX 04/03/23 11/06/24 tablet cranberry fruit 400 mg capsule 400 mg PO DAILY 04/03/23 11/06/24 entacapone 200 mg tablet 100 mg PO 5XD 05/18/23 11/06/24 potassium chloride 10 mEq 10 meq PO BID 05/25/24 11/06/24 tablet,extended release selegiline HCl 5 mg tablet 5 mg PO BID 05/25/24 11/06/24 temazepam 15 mg capsule 15 mg PO BEDTIME PRN sleep 05/25/24 11/06/24 timolol maleate 0.25 % eye drops 1 drp EYE-BOTH DAILY 05/25/24 11/06/24 Previous Rx's ?Medication ?Instructions ?Recorded lidocaine HCl 2 % mucosal solution 1 applic mucous membrane BID-TID 07/27/23 (Lidocaine Viscous) PRN pain #100 mL blood sugar diagnostic (Blood #50 ea 02/16/24 Glucose Test strips) blood-glucose meter #1 ea 02/16/24 lancets 31 gauge (Comfort Touch #100 ea 02/16/24 Ultra Thin Lancets) methenamine hippurate 1 gram tablet 1 g PO BID #180 tabs 04/27/24 metformin 850 mg tablet 850 mg PO TID #240 tabs 05/11/24 albuterol sulfate 90 mcg/actuation 1 puff inhalation Q4-6H #8.5 grams 05/25/24 aerosol inhaler ipratropium 0.5 mg-albuterol 3 mg 3 ml inhalation Q6H PRN shortness 07/16/24 (2.5 mg base)/3 mL nebulization of breath or wheezing #180 mL soln omeprazole 20 mg capsule,delayed 20 mg PO DAILY #90 caps 07/26/24 release albuterol sulfate 2.5 mg/3 mL 2.5 mg (3 mL) inhalation QID #75 mL 07/27/24 (0.083 %) solution for nebulization gabapentin 100 mg capsule 100 mg PO 3XD #270 caps 08/14/24 losartan 50 mg tablet 50 mg PO BID #180 tabs 08/14/24 potassium citrate 10 mEq (1,080 10 meq PO BID #180 tabs 08/14/24 mg) tablet,extended release citric ac 1980.6 mg-glucono 59.4 30 ml irrigation TID #900 mL 08/29/24 mg-mag carb 980.4 mg/30 mL irrig.soln (Renacidin) pen needle, diabetic 32 gauge x #100 ea 10/11/24 5 (Reshma 2nd Gen Pen Needle) insulin glargine 100 unit/mL (3 50 unit (0.5 mL) SUBCUT BEDTIME 10/27/24 mL) subcutaneous pen (Lantus #15 mL Solostar U-100 Insulin) insulin glargine 100 unit/mL (3 75 unit (0.75 mL) SUBCUT DAILY #15 10/27/24 mL) subcutaneous pen (Lantus mL Solostar U-100 Insulin) ipratropium 0.5 mg-albuterol 3 mg 3 ml INH [id number] #90 mL 09/20/25 (2.5 mg base)/3 mL nebulization soln prednisone 20 mg tablet 30 mg (1.5 x 20 mg) PO DAILY #9 10/27/24 tabs amlodipine 5 mg tablet 5 mg PO DAILY #90 tabs 11/06/24 atorvastatin 10 mg tablet 10 mg PO DAILY #90 tabs 11/16/24 finasteride 5 mg tablet 5 mg PO DAILY #90 tabs 11/16/24 Allergies Allergy/AdvReac Type Severity Reaction Status Date / Time No Known Drug Allergies Allergy Verified 11/20/24 20:39 Review of Systems <Ron Hager DO - Last Filed: 11/20/24 22:50> Review of Systems ROS Unobtainable: All systems reviewed & are unremarkable except as noted in HPI and below Patient History <Ron Hager DO - Last Filed: 11/20/24 22:50> Medical History Urinary retention COPD exacerbation History of urinary retention Hyperlipidemia History of nephrolithiasis Left nephrolithiasis Urinary retention Recurrent UTI History of prostate cancer Acne Shoulder pain Ankle pain Measles Chicken pox Prostate cancer (~2010) Anemia Benign prostatic hyperplasia GERD (gastroesophageal reflux disease) Hypertension Type 2 diabetes mellitus Parkinson's disease Congestive heart failure Surgical History S/P deep brain stimulator placement (11/2019) History of prostate biopsy Anesthesia History of knee surgery Kidney stones Family History Father Stroke Hypertension Bacterial UTI Mother Cancer Sister Hypertension Aunt Diabetes mellitus Uncle Kidney stones Social History marital status: number of children: 3 household members: spouse Smoking Status: Former smoker alcohol intake: never Type(s) of exercise: walking frequency: 1-2 times per week Smoking Status: Former smoker tobacco type: cigarettes alcohol intake frequency: holidays/special occasions only Exam <Ron Hager DO - Last Filed: 11/20/24 22:50> Narrative Exam Narrative: GENERAL: [74] year old patient appears stated age. Well-developed patient, in mild distress. HEAD: Atraumatic. Normocephalic. EYES: Pupils equal round and reactive. Extraocular motions intact. No scleral icterus. No injection or drainage. ENT: Nose without bleeding, purulent drainage. Throat without erythema, tonsillar hypertrophy or exudate. Airway patent. NECK: Trachea midline. Non tender CARDIOVASCULAR: Regular rate and rhythm without murmurs, gallops, or rubs. RESPIRATORY: Diminished breath sounds with faint wheezes at the bases GASTROINTESTINAL: Abdomen soft, non-tender, nondistended. EXTREMITIES: No edema or joint tenderness. BACK: Nontender without deformity or crepitance. No flank tenderness. NEURO: AOx3. SKIN: No rash or erythema of visible areas Initial Vital Signs Initial Vital Signs: Vital Signs Temperature 98.9 F 11/20/24 20:39 Pulse Rate 100 H 11/20/24 20:39 Respiratory Rate 26 H 11/20/24 20:39 Blood Pressure 138/63 11/20/24 20:39 Pulse Oximetry 94 11/20/24 20:39 Oxygen Delivery Method Room Air 11/20/24 20:[address] <[address], DO - Last Filed: 11/21/24 01:32> Initial Vital Signs Initial Vital Signs: Vital Signs Temperature 98.9 F 11/20/24 20:39 Pulse Rate 100 H 11/20/24 20:39 Respiratory Rate 26 H 11/20/24 20:39 Blood Pressure 138/63 11/20/24 20:39 Pulse Oximetry 94 11/20/24 20:39 Oxygen Delivery Method Room Air 11/20/24 20:39 Course <Ron Hager, DO - Last Filed: 11/20/24 22:50> Orders Ordered: ED Orders 11/20/24 20:43 Complete Blood Count AUTO DIFF Stat Comprehensive Metabolic Panel Stat Lactate (Lactic Acid) Stat NT-proBNP (BNP-Adult 18+) Stat Prothrombin Time INR Stat Troponin I Stat 11/20/24 20:59 XR chest 1V Stat EKG-12 Lead Stat Measure peak expiratory flow STAT RT Consult Eval and Treat STAT 11/20/24 22:16 CT angio chest PE protocol Stat 11/20/24 22:50 Covid-19 + FLU A/B + RSV - PCR Stat 11/20/24 22:55 Blood Culture Stat Trop I [Troponin I] Stat 11/20/24 23:09 Urinalysis and Microscopic Stat Urine Culture Stat Discontinued Medications Albuterol/Ipratropium (Albuterol/Ipratropium 3 Ml Ampul) 3 ml INH NOW ONE Stop: 11/20/24 23:52 Last Admin: 11/21/24 00:02 Dose: 3 ml Documented By: CAITLIN Ceftriaxone Sodium 1,000 mg/ (Sodium Chloride) 100 mls @ 200 mls/hr IV NOW ONE Stop: 11/20/24 22:17 Last Infusion: 11/20/24 23:25 Dose: Infused Documented By: Admin: 11/20/24 22:54 Dose: 200 mls/hr Documented By: MOLLY Azithromycin 500 mg/ Dextrose 250 mls @ 250 mls/hr IV NOW ONE Stop: 11/20/24 22:17 Last Infusion: 11/21/24 00:42 Dose: Infused Documented By: Admin: 11/20/24 23:24 Dose: 250 mls/hr Documented By: MOLLY Methylprednisolone (Methylprednisolone Succ 125 Mg/2 Ml Vial) 125 mg IV NOW ONE Stop: 11/20/24 22:13 Last Admin: 11/20/24 23:15 Dose: Not Given Documented By: MOLLY Vital Signs Vital signs: Vital Signs - 8 hr 11/20/24 20:39 11/20/24 20:40 11/20/24 20:42 Temperature 98.9 F Pulse Rate 100 H 102 H 100 H Respiratory Rate 26 H 34 H Blood Pressure 138/63 Pulse Oximetry 94 97 94 Oxygen Delivery Method Room Air Room Air Fraction of Inspired Oxygen 11/20/24 20:42 11/20/24 21:00 11/20/24 21:00 Temperature Pulse Rate 93 H Respiratory Rate 32 H Blood Pressure 138/63 128/60 Pulse Oximetry 97 Oxygen Delivery Method Room Air Fraction of Inspired Oxygen 11/20/24 21:30 11/20/24 21:31 11/20/24 21:31 Temperature Pulse Rate 86 85 Respiratory Rate 26 H 26 H Blood Pressure 113/55 L Pulse Oximetry 96 96 Oxygen Delivery Method Room Air Room Air Fraction of Inspired Oxygen 11/20/24 22:00 11/20/24 22:01 11/20/24 22:01 Temperature Pulse Rate 83 83 Respiratory Rate 25 H 24 Blood Pressure 134/60 Pulse Oximetry 97 96 Oxygen Delivery Method Room Air Room Air Fraction of Inspired Oxygen 11/20/24 22:41 11/20/24 22:42 11/20/24 22:42 Temperature Pulse Rate 85 85 Respiratory Rate 24 Blood Pressure 156/67 H Pulse Oximetry 97 Oxygen Delivery Method Room Air Fraction of Inspired Oxygen 11/20/24 23:00 11/20/24 23:00 11/20/24 23:30 Temperature Pulse Rate 82 80 Respiratory Rate 23 24 Blood Pressure 164/74 H Pulse Oximetry 97 97 Oxygen Delivery Method Room Air Room Air Fraction of Inspired Oxygen 11/20/24 23:31 11/20/24 23:31 11/21/24 00:00 Temperature Pulse Rate 81 82 Respiratory Rate 23 24 Blood Pressure 146/67 H Pulse Oximetry 97 97 Oxygen Delivery Method Room Air Room Air Fraction of Inspired Oxygen 11/21/24 00:00 11/21/24 00:03 11/21/24 00:30 Temperature Pulse Rate 82 Respiratory Rate 20 Blood Pressure 145/64 H 133/64 Pulse Oximetry 99 Oxygen Delivery Method Room Air Fraction of Inspired Oxygen 21 11/21/24 00:30 Temperature Pulse Rate 83 Respiratory Rate 23 Blood Pressure Pulse Oximetry 98 Oxygen Delivery Method Room Air Fraction of Inspired Oxygen <Magalys Way, - Last Filed: 11/21/24 01:32> Orders Ordered: ED Orders 11/20/24 20:43 Complete Blood Count AUTO DIFF Stat Comprehensive Metabolic Panel Stat Lactate (Lactic Acid) Stat NT-proBNP (BNP-Adult 18+) Stat Prothrombin Time INR Stat Troponin I Stat 11/20/24 20:59 XR chest 1V Stat EKG-12 Lead Stat Measure peak expiratory flow STAT RT Consult Eval and Treat STAT 11/20/24 22:16 CT angio chest PE protocol Stat 11/20/24 22:50 Covid-19 + FLU A/B + RSV - PCR Stat 11/20/24 22:55 Blood Culture Stat Trop I [Troponin I] Stat 11/20/24 23:09 Urinalysis and Microscopic Stat Urine Culture Stat Discontinued Medications Albuterol/Ipratropium (Albuterol/Ipratropium 3 Ml Ampul) 3 ml INH NOW ONE Stop: 11/20/24 23:52 Last Admin: 11/21/24 00:02 Dose: 3 ml Documented By: CAITLIN Ceftriaxone Sodium 1,000 mg/ (Sodium Chloride) 100 mls @ 200 mls/hr IV NOW ONE Stop: 11/20/24 22:17 Last Infusion: 11/20/24 23:25 Dose: Infused Documented By: Admin: 11/20/24 22:54 Dose: 200 mls/hr Documented By: MOLLY Azithromycin 500 mg/ Dextrose 250 mls @ 250 mls/hr IV NOW ONE Stop: 11/20/24 22:17 Last Infusion: 11/21/24 00:42 Dose: Infused Documented By: Admin: 11/20/24 23:24 Dose: 250 mls/hr Documented By: MOLLY Methylprednisolone (Methylprednisolone Succ 125 Mg/2 Ml Vial) 125 mg IV NOW ONE Stop: 11/20/24 22:13 Last Admin: 11/20/24 23:15 Dose: Not Given Documented By: MOLLY Vital Signs Vital signs: Vital Signs - 8 hr 11/20/24 20:39 11/20/24 20:40 11/20/24 20:42 Temperature 98.9 F Pulse Rate 100 H 102 H 100 H Respiratory Rate 26 H 34 H Blood Pressure 138/63 Pulse Oximetry 94 97 94 Oxygen Delivery Method Room Air Room Air Fraction of Inspired Oxygen 11/20/24 20:42 11/20/24 21:00 11/20/24 21:00 Temperature Pulse Rate 93 H Respiratory Rate 32 H Blood Pressure 138/63 128/60 Pulse Oximetry 97 Oxygen Delivery Method Room Air Fraction of Inspired Oxygen 11/20/24 21:30 11/20/24 21:31 11/20/24 21:31 Temperature Pulse Rate 86 85 Respiratory Rate 26 H 26 H Blood Pressure 113/55 L Pulse Oximetry 96 96 Oxygen Delivery Method Room Air Room Air Fraction of Inspired Oxygen 11/20/24 22:00 11/20/24 22:01 11/20/24 22:01 Temperature Pulse Rate 83 83 Respiratory Rate 25 H 24 Blood Pressure 134/60 Pulse Oximetry 97 96 Oxygen Delivery Method Room Air Room Air Fraction of Inspired Oxygen 11/20/24 22:41 11/20/24 22:42 11/20/24 22:42 Temperature Pulse Rate 85 85 Respiratory Rate 24 Blood Pressure 156/67 H Pulse Oximetry 97 Oxygen Delivery Method Room Air Fraction of Inspired Oxygen 11/20/24 23:00 11/20/24 23:00 11/20/24 23:30 Temperature Pulse Rate 82 80 Respiratory Rate 23 24 Blood Pressure 164/74 H Pulse Oximetry 97 97 Oxygen Delivery Method Room Air Room Air Fraction of Inspired Oxygen 11/20/24 23:31 11/20/24 23:31 11/21/24 00:00 Temperature Pulse Rate 81 82 Respiratory Rate 23 24 Blood Pressure 146/67 H Pulse Oximetry 97 97 Oxygen Delivery Method Room Air Room Air Fraction of Inspired Oxygen 11/21/24 00:00 11/21/24 00:03 11/21/24 00:30 Temperature Pulse Rate 82 Respiratory Rate 20 Blood Pressure 145/64 H 133/64 Pulse Oximetry 99 Oxygen Delivery Method Room Air Fraction of Inspired Oxygen 21 11/21/24 00:30 Temperature Pulse Rate 83 Respiratory Rate 23 Blood Pressure Pulse Oximetry 98 Oxygen Delivery Method Room Air Fraction of Inspired Oxygen MDM - SOB/Dyspnea <Ron Hager, DO - Last Filed: 11/20/24 22:50> Lab Data 11/20/24 20:43 11/20/24 20:43 Labs: Lab Results 11/20/24 11/20/24 11/20/24 Range/Units 20:43 22:50 22:55 WBC 8.5 (4.5-11.0) X10^3/uL RBC 4.10 L (4.5-5.9) X10^6/uL Hgb 12.0 L (13.5-17.5) g/dL Hct 35.4 L (41-53) % MCV 86.3 (80-100) fL MCH 29.2 (26-34) PG MCHC 33.9 (30-36) % RDW 14.8 (11.6-14.8) % Plt Count 236 (150-400) X10^3/uL Neut % (Auto) 65.5 (50-75) % Lymph % (Auto) 24.1 L (25-40) % [place] % (Auto) 5.7 (3-14) % Eos % (Auto) 3.1 (2-4) % Baso % (Auto) 1.6 (0-2) % Neut # (Auto) 5600 (6431-7884) /uL Lymph # (Auto) 2100 (2621-8335) /uL [place] # (Auto) 500 (0-900) /uL Eos # (Auto) 300 (0-450) /uL Baso # (Auto) 100 (0-100) /uL PT 11.0 (9.4-12.5) SECONDS INR 1.0 (0.9-1.3) Sodium 130 L (137-145) mmol/L Potassium 3.8 (3.4-5.1) mmol/L Chloride 100 (98-107) mmol/L Carbon Dioxide 17 L (22-32) mmol/L BUN 15 (9-20) mg/dL Creatinine 1.01 (0.66-1.25) mg/dL Estimated GFR > 60 (>60) mL/min BUN/Creatinine Ratio 14.9 (6-22) Glucose 290 H (70-99) mg/dL Lactate 5.9 H* (0.7-2.1) mmol/L Calcium 9.4 (8.4-10.2) mg/dL Total Bilirubin 0.5 (0.2-1.3) mg/dL AST 21 (17-59) IU/L ALT 14 (<50) IU/L Alkaline Phosphatase 100 (38-126) U/L Troponin I 0.015 0.021 (0.01-0.034) ng/mL NT-Pro-B Natriuret Pep 243 (<450) pg/mL Total Protein 6.6 (6.3-8.2) g/dL Albumin 3.8 (3.5-5.0) g/dL Globulin 2.8 (1.7-4.1) g/dL Albumin/Globulin Ratio 1.4 (1.0-2.8) Urine Color Urine Appearance Urine pH (4.5-8.0) Ur Specific [place] (1.000-1.035) Urine Protein (Negative) Urine Glucose (UA) (Negative) g/dL Urine Ketones (NEGATIVE) Urine Occult Blood (Negative) Urine Nitrate (Negative) Urine Bilirubin (NEGATIVE) Urine Urobilinogen (0.2) E.U./dL Ur Leukocyte Esterase (NEGATIVE) Urine RBC (0-5/HPF) Urine WBC (0-5/HPF) Ur Squamous Epith Cells (0-5/HPF) Urine Bacteria (None) Urine Mucus (Negative) Urine Yeast (None) Ur Culture Indicated? Vol Urine Centrifuged SARS-CoV-2 (PCR) Negative (Negative) Influenza A (RT-PCR) Flu a negative (NEGATIVE) Influenza B (RT-PCR) Flu b negative (NEGATIVE) RSV (PCR) Negative (Negative) 11/20/24 11/20/24 Range/Units 23:09 23:46 WBC (4.5-11.0) X10^3/uL RBC (4.5-5.9) X10^6/uL Hgb (13.5-17.5) g/dL Hct (41-53) % MCV (80-100) fL MCH (26-34) PG MCHC (30-36) % RDW (11.6-14.8) % Plt Count (150-400) X10^3/uL Neut % (Auto) (50-75) % Lymph % (Auto) (25-40) % [place] % (Auto) (3-14) % Eos % (Auto) (2-4) % Baso % (Auto) (0-2) % Neut # (Auto) (2948-2481) /uL Lymph # (Auto) (8197-4666) /uL [place] # (Auto) (0-900) /uL Eos # (Auto) (0-450) /uL Baso # (Auto) (0-100) /uL PT (9.4-12.5) SECONDS INR (0.9-1.3) Sodium (137-145) mmol/L Potassium (3.4-5.1) mmol/L Chloride (98-107) mmol/L Carbon Dioxide (22-32) mmol/L BUN (9-20) mg/dL Creatinine (0.66-1.25) mg/dL Estimated GFR (>60) mL/min BUN/Creatinine Ratio (6-22) Glucose (70-99) mg/dL Lactate 4.1 H* (0.7-2.1) mmol/L Calcium (8.4-10.2) mg/dL Total Bilirubin (0.2-1.3) mg/dL AST (17-59) IU/L ALT (<50) IU/L Alkaline Phosphatase (38-126) U/L Troponin I (0.01-0.034) ng/mL NT-Pro-B Natriuret Pep (<450) pg/mL Total Protein (6.3-8.2) g/dL Albumin (3.5-5.0) g/dL Globulin (1.7-4.1) g/dL Albumin/Globulin Ratio (1.0-2.8) Urine Color Yellow Urine Appearance Clear Urine pH 6.0 (4.5-8.0) Ur Specific [place] <=1.005 (1.000-1.035) Urine Protein Negative (Negative) Urine Glucose (UA) 3+ H (Negative) g/dL Urine Ketones Negative (NEGATIVE) Urine Occult Blood Trace-intact (Negative) Urine Nitrate Positive H (Negative) Urine Bilirubin Negative (NEGATIVE) Urine Urobilinogen 0.2 (0.2) E.U./dL Ur Leukocyte Esterase 2+ H (NEGATIVE) Urine RBC 0-1/hpf (0-5/HPF) Urine WBC 5-10/hpf H (0-5/HPF) Ur Squamous Epith Cells 0-1 /hpf (0-5/HPF) Urine Bacteria Moderate (10-30) H (None) Urine Mucus 1+ H (Negative) Urine Yeast 0-1/hpf (None) Ur Culture Indicated? Specimen cultured Vol Urine Centrifuged 10ml (spun) SARS-CoV-2 (PCR) (Negative) Influenza A (RT-PCR) (NEGATIVE) Influenza B (RT-PCR) (NEGATIVE) RSV (PCR) (Negative) Imaging Data Chest x-ray: Radiologist's Impression: [address] [address] XRay Report Signed Patient: Sarbjit Mayen MR#: [id number] : 1950 Acct:[id number] Age/Sex: 74 / M Date of Service: 11/20/24 Loc: ED Accession Number: [id number] Procedure: XR chest 1V Ordering Provider: Ron Hager D.O. PROCEDURE: XR CHEST 1V INDICATIONS: Shortness of breath TECHNIQUE: One view of the chest was acquired. COMPARISON: [facility], , XR CHEST 1V, 10/23/2024, 18:11. FINDINGS: Surgical changes and devices: Stimulator pack projects over the right chest Lungs and pleura: Lungs are clear. No pleural effusions or pneumothorax. Mediastinum: Mediastinal contours appear normal. Heart size is normal. Bones and chest wall: No suspicious bony lesions. Overlying soft tissues appear unremarkable. Chronic left rib fractures. IMPRESSION: No acute cardiopulmonary abnormality is seen. ECG Data Interpretation: Junctional Rhythm HR 99 NC undetermined QRS [address]-t wave change Unchanged from 06/22/24 MDM Narrative Medical decision making narrative: All lab work, vital signs, nurse triage note, medication list, previous ER visits, and all imaging studies reviewed. Chest x-ray showed no acute process. WBC 8.5 globin 12.0 platelet 236 INR 1.0. Sodium 130 acid 3.8 chloride 100 CO2 17 115 creatinine 1.01 glucose 290. Lactic acid 5.9. LFTs normal. Troponin 1st set 0.015. BNP 243. Second set troponin and 2nd repeat lactic acid pending. CTA chest pending. Patient signed out to Dr. Way at shift change pending final position. <Magalys Way, DO - Last Filed: 11/21/24 01:32> Lab Data Labs: Lab Results 11/20/24 11/20/24 11/20/24 Range/Units 20:43 22:50 22:55 WBC 8.5 (4.5-11.0) X10^3/uL RBC 4.10 L (4.5-5.9) X10^6/uL Hgb 12.0 L (13.5-17.5) g/dL Hct 35.4 L (41-53) % MCV 86.3 (80-100) fL MCH 29.2 (26-34) PG MCHC 33.9 (30-36) % RDW 14.8 (11.6-14.8) % Plt Count 236 (150-400) X10^3/uL Neut % (Auto) 65.5 (50-75) % Lymph % (Auto) 24.1 L (25-40) % [place] % (Auto) 5.7 (3-14) % Eos % (Auto) 3.1 (2-4) % Baso % (Auto) 1.6 (0-2) % Neut # (Auto) 5600 (0016-9196) /uL Lymph # (Auto) 2100 (3102-5046) /uL [place] # (Auto) 500 (0-900) /uL Eos # (Auto) 300 (0-450) /uL Baso # (Auto) 100 (0-100) /uL PT 11.0 (9.4-12.5) SECONDS INR 1.0 (0.9-1.3) Sodium 130 L (137-145) mmol/L Potassium 3.8 (3.4-5.1) mmol/L Chloride 100 (98-107) mmol/L Carbon Dioxide 17 L (22-32) mmol/L BUN 15 (9-20) mg/dL Creatinine 1.01 (0.66-1.25) mg/dL Estimated GFR > 60 (>60) mL/min BUN/Creatinine Ratio 14.9 (6-22) Glucose 290 H (70-99) mg/dL Lactate 5.9 H* (0.7-2.1) mmol/L Calcium 9.4 (8.4-10.2) mg/dL Total Bilirubin 0.5 (0.2-1.3) mg/dL AST 21 (17-59) IU/L ALT 14 (<50) IU/L Alkaline Phosphatase 100 (38-126) U/L Troponin I 0.015 0.021 (0.01-0.034) ng/mL NT-Pro-B Natriuret Pep 243 (<450) pg/mL Total Protein 6.6 (6.3-8.2) g/dL Albumin 3.8 (3.5-5.0) g/dL Globulin 2.8 (1.7-4.1) g/dL Albumin/Globulin Ratio 1.4 (1.0-2.8) Urine Color Urine Appearance Urine pH (4.5-8.0) Ur Specific [place] (1.000-1.035) Urine Protein (Negative) Urine Glucose (UA) (Negative) g/dL Urine Ketones (NEGATIVE) Urine Occult Blood (Negative) Urine Nitrate (Negative) Urine Bilirubin (NEGATIVE) Urine Urobilinogen (0.2) E.U./dL Ur Leukocyte Esterase (NEGATIVE) Urine RBC (0-5/HPF) Urine WBC (0-5/HPF) Ur Squamous Epith Cells (0-5/HPF) Urine Bacteria (None) Urine Mucus (Negative) Urine Yeast (None) Ur Culture Indicated? Vol Urine Centrifuged SARS-CoV-2 (PCR) Negative (Negative) Influenza A (RT-PCR) Flu a negative (NEGATIVE) Influenza B (RT-PCR) Flu b negative (NEGATIVE) RSV (PCR) Negative (Negative) 11/20/24 11/20/24 Range/Units 23:09 23:46 WBC (4.5-11.0) X10^3/uL RBC (4.5-5.9) X10^6/uL Hgb (13.5-17.5) g/dL Hct (41-53) % MCV (80-100) fL MCH (26-34) PG MCHC (30-36) % RDW (11.6-14.8) % Plt Count (150-400) X10^3/uL Neut % (Auto) (50-75) % Lymph % (Auto) (25-40) % [place] % (Auto) (3-14) % Eos % (Auto) (2-4) % Baso % (Auto) (0-2) % Neut # (Auto) (1520-1313) /uL Lymph # (Auto) (9135-5428) /uL [place] # (Auto) (0-900) /uL Eos # (Auto) (0-450) /uL Baso # (Auto) (0-100) /uL PT (9.4-12.5) SECONDS INR (0.9-1.3) Sodium (137-145) mmol/L Potassium (3.4-5.1) mmol/L Chloride (98-107) mmol/L Carbon Dioxide (22-32) mmol/L BUN (9-20) mg/dL Creatinine (0.66-1.25) mg/dL Estimated GFR (>60) mL/min BUN/Creatinine Ratio (6-22) Glucose (70-99) mg/dL Lactate 4.1 H* (0.7-2.1) mmol/L Calcium (8.4-10.2) mg/dL Total Bilirubin (0.2-1.3) mg/dL AST (17-59) IU/L ALT (<50) IU/L Alkaline Phosphatase (38-126) U/L Troponin I (0.01-0.034) ng/mL NT-Pro-B Natriuret Pep (<450) pg/mL Total Protein (6.3-8.2) g/dL Albumin (3.5-5.0) g/dL Globulin (1.7-4.1) g/dL Albumin/Globulin Ratio (1.0-2.8) Urine Color Yellow Urine Appearance Clear Urine pH 6.0 (4.5-8.0) Ur Specific [place] <=1.005 (1.000-1.035) Urine Protein Negative (Negative) Urine Glucose (UA) 3+ H (Negative) g/dL Urine Ketones Negative (NEGATIVE) Urine Occult Blood Trace-intact (Negative) Urine Nitrate Positive H (Negative) Urine Bilirubin Negative (NEGATIVE) Urine Urobilinogen 0.2 (0.2) E.U./dL Ur Leukocyte Esterase 2+ H (NEGATIVE) Urine RBC 0-1/hpf (0-5/HPF) Urine WBC 5-10/hpf H (0-5/HPF) Ur Squamous Epith Cells 0-1 /hpf (0-5/HPF) Urine Bacteria Moderate (10-30) H (None) Urine Mucus 1+ H (Negative) Urine Yeast 0-1/hpf (None) Ur Culture Indicated? Specimen cultured Vol Urine Centrifuged 10ml (spun) SARS-CoV-2 (PCR) (Negative) Influenza A (RT-PCR) (NEGATIVE) Influenza B (RT-PCR) (NEGATIVE) RSV (PCR) (Negative) MDM Narrative Medical decision making narrative: All lab work, vital signs, nurse triage note, medication list, previous ER visits, and all imaging studies reviewed. Chest x-ray showed no acute process. WBC 8.5 globin 12.0 platelet 236 INR 1.0. Sodium 130 acid 3.8 chloride 100 CO2 17 115 creatinine 1.01 glucose 290. Lactic acid 5.9. LFTs normal. Troponin 1st set 0.015. BNP 243. Second set troponin and 2nd repeat lactic acid pending. CTA chest pending. Patient signed out to Dr. Way at shift change pending final position. 11/20/24 Dr. [address]: Patient arrives with COPD exacerbation. Lactate was noted to be 5.9 initially concern for potential other sources so CT PE is pending. CTA shows no central PE, evaluation limited secondary to poor contrast opacification motion artifact no acute cardiopulmonary process. Labs show normal white count, hemoglobin of 12 consistent with priors platelets are 236. INR is 1. I did sodium is 130, CO2 17 potassium chloride are normal with normal BUN creatinine, glucose of 290 initial lactate is 5.9 repeat is 4.1 but patient did not receive any fluids. Troponin was 0.015 with a repeat of 0.012. Patient denies any chest pain or pressure. Patient has a COVID/influenza/RSV negative UA shows nitrite positive urine 2+ leuks 5-10 WBCs moderate bacteria. Was sent for culture. Patient notes his breathing has not improved but has not normalized. On exam patient is mildly tachypneic, no accessory muscle use does have little bit of pursed lip breathing. He is decreased bilaterally minimal wheeze. Patient states he has not improved but not returned to his normal baseline breathing. Patient received a to [facility] EN route as well as additional DuoNeb here, 10 mg of dexamethasone with the EMS, Rocephin 1 g and azithromycin 500 mg. Spoke with hospitalist Dr. Dela Cruz about observation for COPD exacerbation @ [id number] accepts observation Discharge Plan Departure Patient Disposition: Admitted as Observation Clinical Impression: Acute exacerbation of chronic obstructive pulmonary disease, UTI (urinary tract infection)
--- NOTE | 2024-11-20 22:16 | DI.CT.S_ITS ---
PROCEDURE: CT ANGIO CHEST PE PROTOCOL INDICATIONS: sob duong TECHNIQUE: After the administration of intravenous contrast, 2 mm thick sections acquired from the pulmonary apices to the posterior costophrenic angles. 3-dimensional maximum intensity projection (MIP) coronal and sagittal reformats were then acquired through the thorax. For radiation dose reduction, the following was used: automated exposure control, adjustment of mA and/or kV according to patient size. COMPARISON: [facility], CT, CT ANGIO CHEST PE PROTOCOL, 10/23/2024, 20:33. FINDINGS: Image quality: Diagnostic. Pulmonary arteries: Pulmonary arteries are normal in size, and demonstrate no central filling defects to suggest central pulmonary embolism. Evaluation of the more distal pulmonary arteries is limited secondary to poor contrast opacification and motion artifact. Lower Neck: No enlarged lymph nodes. Thyroid: No thyroid nodules which require sonographic follow up, per consensus guidelines. Axillae: No enlarged lymph nodes. Chest Wall: Unremarkable. Bones: Degenerative changes of the spine. Decreased osseous mineralization. Stable T12 compression deformity.. Lungs and Pleura: No pneumothorax or pleural effusions. No consolidation or suspicious nodules. Heart: Heart size is mildly enlarged. No pericardial effusion. Thoracic Vessels: No aortic aneurysm. Mediastinum and [place]: No enlarged lymph nodes. Esophagus: No wall thickening. No hiatal hernia. Upper Abdomen: Left adrenal nodule measuring 1.5 cm is stable compared to prior. IMPRESSION: No central pulmonary embolism. Evaluation is limited secondary to poor contrast opacification and motion artifact. No acute cardiopulmonary process. Approved by: Clay Silver M.D. on 11/20/2024 at 23:39
--- NOTE | 2024-11-20 22:31 | PC.NURSE ---
Pt to imaging via ED stretcher with technical maintenance technician and orthotics prosthetics technician
[2024-11-20 22:39] LABS: Reflexed Lactate in 2 Hours Y
[2024-11-20 23:17] LABS: Appearance Urine UA CLEAR; Bilirubin Urine UA NEGATIVE (NEGATIVE); Color Urine UA YELLOW; Glucose Urine UA 3+ g/dL (Negative); Ketones Urine UA NEGATIVE (NEGATIVE); Leukocyte Esterase Urine UA 2+ (NEGATIVE); Nitrite Urine UA POSITIVE (Negative); Occult Blood Urine UA TRACE-INTACT (Negative); Protein Urine UA NEGATIVE (Negative); Specific Gravity Urine UA <=1.005 (1.000-1.035); Urobilinogen Urine UA 0.2 E.U./dL (0.2); pH Urine UA 6.0 (4.5-8.0)
[2024-11-20] MEDS: AZITHROMYCIN 500 MG in DEXTROSE 5% IN WATER 250 ML 250 MG IV (23:24)
[2024-11-20 23:25] LABS: Culture Indicated Urine Specimen Cultured
[2024-11-20 23:32] LABS: Influenza A - CEPHEID Flu A NEGATIVE (NEGATIVE); Influenza B - CEPHEID Flu B NEGATIVE (NEGATIVE)
[2024-11-20 23:33] LABS: COVID-19 CEPHEID 4-PLEX PCR Negative (Negative)
[2024-11-20 23:34] LABS: Troponin I 0.021 ng/mL (0.01-0.034)
[2024-11-21] VITALS (60 sets, daily range): BP systolic 98–190; BP diastolic 55–122; PULSE 78–109; RESP 10–44; TEMP 37.3–37.4; O2SAT 89–100; BMI 33.9
[2024-11-21] MEDS: ALBUTEROL/IPRATROPIUM 3 ML AMPUL INH ×4 (00:02→21:20)
[2024-11-21 00:06] LABS: Lactate 2HR (Lactic Acid Rflx) 4.1 mmol/L (0.7-2.1)
--- NOTE | 2024-11-21 00:30 | PC.NURSE ---
Pt resting quietly with eyes closed, resps even and not labored. No distress noted at this time. Pt's leaving at this time. Home dose of parkinson's med given by ok'd per Dr. Way. VS stable. Pt remains connected to cardiac, resp, blood pressure, and pulse ox monitors with alarms on and audible. Call light within reach. Chronic indwelling urinary catheter draining clear, yellow urine. Pt with no complaints or requests at this time.
--- NOTE | 2024-11-21 01:49 | PC.NURSE ---
No change in patient condition or status. Pt resting quietly with eyes closed, resps even and not labored. No distress noted at this time. Indwelling urinary catheter emptied at this time. Dr. Way made aware of urine volume since arrival. Pt remains connected to cardiac, resp, blood pressure, and pulse ox monitors with alarms on and audible. Call light within reach.
--- NOTE | 2024-11-21 04:01 | PC.NURSE ---
No change in patient condition or status. Pt resting quietly with eyes closed, resps even and not labored. No distress noted at this time. Pt remains connected to cardiac, resp, blood pressure, and pulse ox monitors with alarms on and audible. Call light within reach.
--- NOTE | 2024-11-21 05:05 | PC.NURSE ---
Requested maintenance fluids from Dr. Dela Cruz. Responds that he needs to eval pt. Monitor in room and pt woken for eval. Eval completed. Awaiting orders at this time.
--- NOTE | 2024-11-21 05:40 | PC.NURSE ---
Video assessment completed by Dr. Dela Cruz.
--- NOTE | 2024-11-21 06:07 | PM.HP.1 ---
History of Present Illness History of Present Illness Date Patient Seen: 11/21/24 Time Patient Seen: 05:30 Chief complaint: resp. distress Narrative: 74-year-old gentleman history of Parkinson's disease, wheelchair-bound, prostate cancer in remission with indwelling Churchill catheter, recurrent UTIs, COPD, pacemaker, DM, HTN, anemia, HLD, presents with shortness of breath. ED course: CTA shows no central PE, evaluation limited secondary to poor contrast opacification motion artifact no acute cardiopulmonary process. Labs show normal white count, hemoglobin of 12 consistent with priors platelets are 236. INR is 1. I did sodium is 130, CO2 17 potassium chloride are normal with normal BUN creatinine, glucose of 290 initial lactate is 5.9 repeat is 4.1 but patient did not receive any fluids. Troponin was 0.015 with a repeat of 0.012. Patient denies any chest pain or pressure. Patient has a COVID/influenza/RSV negative UA shows nitrite positive urine 2+ leuks 5-10 WBCs moderate bacteria Started antibiotics, steroid, bronchodilator and admitted to medicine with COPD exacerbation and UTI. [facility] Medical History (Updated 11/21/24 @ 06:19 by Abel Dela Cruz MD) Acute on chronic urinary retention Urinary retention COPD exacerbation History of urinary retention Hyperlipidemia History of nephrolithiasis Left nephrolithiasis Urinary retention Recurrent UTI History of prostate cancer Acne Shoulder pain Ankle pain Measles Chicken pox Prostate cancer (~2010) Anemia Benign prostatic hyperplasia GERD (gastroesophageal reflux disease) Hypertension Type 2 diabetes mellitus Parkinson's disease Congestive heart failure Surgical History S/P deep brain stimulator placement (11/2019) History of prostate biopsy Anesthesia History of knee surgery Kidney stones Family History Father Stroke Hypertension Bacterial UTI Mother Cancer Sister Hypertension Aunt Diabetes mellitus Uncle Kidney stones Social History marital status: number of children: 3 household members: spouse Smoking Status: Former smoker alcohol intake: never Type(s) of exercise: walking frequency: 1-2 times per week Meds Home Medications and Allergies Home Medications ?Medication ?Instructions ?Recorded ?Confirmed ?Type latanoprost 0.005 % eye drops 1 drp EYE-BOTH DAILY 06/02/22 11/06/24 History aspirin 81 mg tablet,delayed 81 mg PO DAILY 10/21/22 11/06/24 History release (Adult Low Dose Aspirin) acetaminophen 500 mg tablet 500 mg PO Q6H PRN Pain (Scale 04/03/23 11/06/24 History (Acetaminophen Extra Strength) Score 4-6) carbidopa 25 mg-levodopa 100 mg See Rx Instructions .Route .COMPLEX 04/03/23 11/06/24 History tablet cranberry fruit 400 mg capsule 400 mg PO DAILY 04/03/23 11/06/24 History entacapone 200 mg tablet 100 mg PO 5XD 05/18/23 11/06/24 History lidocaine HCl 2 % mucosal solution 1 applic mucous membrane BID-TID 07/27/23 11/06/24 Rx (Lidocaine Viscous) PRN pain #100 mL blood sugar diagnostic (Blood #50 ea 02/16/24 11/06/24 Rx Glucose Test strips) blood-glucose meter #1 ea 02/16/24 11/06/24 Rx lancets 31 gauge (Comfort Touch #100 ea 02/16/24 11/06/24 Rx Ultra Thin Lancets) methenamine hippurate 1 gram tablet 1 g PO BID #180 tabs 04/27/24 11/06/24 Rx metformin 850 mg tablet 850 mg PO TID #240 tabs 05/11/24 11/06/24 Rx albuterol sulfate 90 mcg/actuation 1 puff inhalation Q4-6H #8.5 grams 05/25/24 11/06/24 Rx aerosol inhaler potassium chloride 10 mEq 10 meq PO BID 05/25/24 11/06/24 History tablet,extended release selegiline HCl 5 mg tablet 5 mg PO BID 05/25/24 11/06/24 History temazepam 15 mg capsule 15 mg PO BEDTIME PRN sleep 05/25/24 11/06/24 History timolol maleate 0.25 % eye drops 1 drp EYE-BOTH DAILY 05/25/24 11/06/24 History ipratropium 0.5 mg-albuterol 3 mg 3 ml inhalation Q6H PRN shortness 07/16/24 11/06/24 Rx (2.5 mg base)/3 mL nebulization of breath or wheezing #180 mL soln omeprazole 20 mg capsule,delayed 20 mg PO DAILY #90 caps 07/26/24 11/06/24 Rx release albuterol sulfate 2.5 mg/3 mL 2.5 mg (3 mL) inhalation QID #75 mL 07/27/24 11/06/24 Rx (0.083 %) solution for nebulization gabapentin 100 mg capsule 100 mg PO 3XD #270 caps 08/14/24 11/06/24 Rx losartan 50 mg tablet 50 mg PO BID #180 tabs 08/14/24 11/06/24 Rx potassium citrate 10 mEq (1,080 10 meq PO BID #180 tabs 08/14/24 11/06/24 Rx mg) tablet,extended release citric ac 1980.6 mg-glucono 59.4 30 ml irrigation TID #900 mL 08/29/24 11/06/24 Rx mg-mag carb 980.4 mg/30 mL irrig.soln (Renacidin) pen needle, diabetic 32 gauge x #100 ea 10/11/24 11/06/24 Rx (Reshma 2nd Gen Pen Needle) insulin glargine 100 unit/mL (3 50 unit (0.5 mL) SUBCUT BEDTIME 10/27/24 11/06/24 Rx mL) subcutaneous pen (Lantus #15 mL Solostar U-100 Insulin) insulin glargine 100 unit/mL (3 75 unit (0.75 mL) SUBCUT DAILY #15 10/27/24 11/06/24 Rx mL) subcutaneous pen (Lantus mL Solostar U-100 Insulin) ipratropium 0.5 mg-albuterol 3 mg 3 ml INH [id number] #90 mL 10/27/24 11/06/24 Rx (2.5 mg base)/3 mL nebulization soln prednisone 20 mg tablet 30 mg (1.5 x 20 mg) PO DAILY #9 10/27/24 11/06/24 Rx tabs amlodipine 5 mg tablet 5 mg PO DAILY #90 tabs 11/06/24 11/06/24 Rx atorvastatin 10 mg tablet 10 mg PO DAILY #90 tabs 11/16/24 Rx finasteride 5 mg tablet 5 mg PO DAILY #90 tabs 11/16/24 Rx Allergies Allergy/AdvReac Type Severity Reaction Status Date / Time No Known Drug Allergies Allergy Verified 11/20/24 20:39 Review of Systems Review of Systems Narrative: Poor historian, complains on shortness of breath Exam Vital Signs (past 8 hours): - 11/20/24 22:41 11/20/24 22:42 11/20/24 22:42 Pulse Rate 85 85 Respiratory Rate 24 Blood Pressure 156/67 H Pulse Oximetry 97 Oxygen Delivery Method Room Air Fraction of Inspired Oxygen 11/20/24 23:00 11/20/24 23:00 11/20/24 23:30 Pulse Rate 82 80 Respiratory Rate 23 24 Blood Pressure 164/74 H Pulse Oximetry 97 97 Oxygen Delivery Method Room Air Room Air Fraction of Inspired Oxygen 11/20/24 23:31 11/20/24 23:31 11/21/24 00:00 Pulse Rate 81 82 Respiratory Rate 23 24 Blood Pressure 146/67 H Pulse Oximetry 97 97 Oxygen Delivery Method Room Air Room Air Fraction of Inspired Oxygen 11/21/24 00:00 11/21/24 00:03 11/21/24 00:30 Pulse Rate 82 Respiratory Rate 20 Blood Pressure 145/64 H 133/64 Pulse Oximetry 99 Oxygen Delivery Method Room Air Fraction of Inspired Oxygen 21 11/21/24 00:30 11/21/24 01:00 11/21/24 01:00 Pulse Rate 83 83 Respiratory Rate 23 22 Blood Pressure 138/66 Pulse Oximetry 98 96 Oxygen Delivery Method Room Air Room Air Fraction of Inspired Oxygen 11/21/24 01:30 11/21/24 01:30 11/21/24 02:00 Pulse Rate 84 Respiratory Rate 21 Blood Pressure 138/67 140/66 Pulse Oximetry 97 Oxygen Delivery Method Room Air Fraction of Inspired Oxygen 11/21/24 02:00 11/21/24 02:30 11/21/24 02:31 Pulse Rate 85 84 84 Respiratory Rate 19 20 20 Blood Pressure Pulse Oximetry 96 96 96 Oxygen Delivery Method Room Air Room Air Room Air Fraction of Inspired Oxygen 11/21/24 02:31 11/21/24 03:00 11/21/24 03:00 Pulse Rate 82 Respiratory Rate 19 Blood Pressure 147/69 H 141/67 H Pulse Oximetry 96 Oxygen Delivery Method Room Air Fraction of Inspired Oxygen 11/21/24 03:30 11/21/24 03:31 11/21/24 03:31 Pulse Rate 81 81 Respiratory Rate 19 19 Blood Pressure 162/73 H Pulse Oximetry 97 97 Oxygen Delivery Method Room Air Room Air Fraction of Inspired Oxygen 11/21/24 04:00 11/21/24 04:01 11/21/24 04:01 Pulse Rate 79 79 Respiratory Rate 17 18 Blood Pressure 150/74 H Pulse Oximetry 96 97 Oxygen Delivery Method Room Air Room Air Fraction of Inspired Oxygen Fraction of Inspired Oxygen 21 SaO2/FiO2 Ratio 461 Oxygen Delivery Method Room Air Narrative Exam Narrative: General - in no distress Neuro - cognitive deficits, impaired mobility CVS / RS - PPM, wheezy UG - indwelling Churchill, w/o hematuria RS - tachypneic GI - abdomen not distended Objective ECG Impression: Accelerated junctional rhythm Imaging CT scan - chest: My impression: CTA non-diagnostic Chest x-ray: My impression: CXR non-diagnostic Labs 11/20/24 20:43 11/20/24 20:43 Labs: Laboratory Results - last 24 hr 11/20/24 11/20/24 11/20/24 20:43 22:50 22:55 WBC 8.5 RBC 4.10 L Hgb 12.0 L Hct 35.4 L MCV 86.3 MCH 29.2 MCHC 33.9 RDW 14.8 Plt Count 236 Neut % (Auto) 65.5 Lymph % (Auto) 24.1 L [place] % (Auto) 5.7 Eos % (Auto) 3.1 Baso % (Auto) 1.6 Neut # (Auto) 5600 Lymph # (Auto) 2100 [place] # (Auto) 500 Eos # (Auto) 300 Baso # (Auto) 100 PT 11.0 INR 1.0 Sodium 130 L Potassium 3.8 Chloride 100 Carbon Dioxide 17 L BUN 15 Creatinine 1.01 Estimated GFR > 60 BUN/Creatinine Ratio 14.9 Glucose 290 H Lactate 5.9 H* Calcium 9.4 Total Bilirubin 0.5 AST 21 ALT 14 Alkaline Phosphatase 100 Troponin I 0.015 0.021 NT-Pro-B Natriuret Pep 243 Total Protein 6.6 Albumin 3.8 Globulin 2.8 Albumin/Globulin Ratio 1.4 Urine Color Urine Appearance Urine pH Ur Specific [place] Urine Protein Urine Glucose (UA) Urine Ketones Urine Occult Blood Urine Nitrate Urine Bilirubin Urine Urobilinogen Ur Leukocyte Esterase Urine RBC Urine WBC Ur Squamous Epith Cells Urine Bacteria Urine Mucus Urine Yeast Ur Culture Indicated? Vol Urine Centrifuged SARS-CoV-2 (PCR) Negative Influenza A (RT-PCR) Flu a negative Influenza B (RT-PCR) Flu b negative RSV (PCR) Negative 11/20/24 11/20/24 23:09 23:46 WBC RBC Hgb Hct MCV MCH MCHC RDW Plt Count Neut % (Auto) Lymph % (Auto) [place] % (Auto) Eos % (Auto) Baso % (Auto) Neut # (Auto) Lymph # (Auto) [place] # (Auto) Eos # (Auto) Baso # (Auto) PT INR Sodium Potassium Chloride Carbon Dioxide BUN Creatinine Estimated GFR BUN/Creatinine Ratio Glucose Lactate 4.1 H* Calcium Total Bilirubin AST ALT Alkaline Phosphatase Troponin I NT-Pro-B Natriuret Pep Total Protein Albumin Globulin Albumin/Globulin Ratio Urine Color Yellow Urine Appearance Clear Urine pH 6.0 Ur Specific [place] <=1.005 Urine Protein Negative Urine Glucose (UA) 3+ H Urine Ketones Negative Urine Occult Blood Trace-intact Urine Nitrate Positive H Urine Bilirubin Negative Urine Urobilinogen 0.2 Ur Leukocyte Esterase 2+ H Urine RBC 0-1/hpf Urine WBC 5-10/hpf H Ur Squamous Epith Cells 0-1 /hpf Urine Bacteria Moderate (10-30) H Urine Mucus 1+ H Urine Yeast 0-1/hpf Ur Culture Indicated? Specimen cultured Vol Urine Centrifuged 10ml (spun) SARS-CoV-2 (PCR) Influenza A (RT-PCR) Influenza B (RT-PCR) RSV (PCR) Assessment & Plan Assessment and plan (1) UTI (urinary tract infection): Status: Acute (2) Recurrent UTI: Status: Acute (3) History of urinary retention: Status: Chronic (4) Acute exacerbation of chronic obstructive pulmonary disease: Status: Acute (5) Hypertension: Qualifiers: Hypertension type: primary hypertension Qualified Code(s): I10 - Essential (primary) hypertension Status: Acute (6) Type 2 diabetes mellitus: Qualifiers: Diabetes mellitus yard laborer insulin use: with yard laborer use Diabetes mellitus complication status: with circulatory complication Diabetes mellitus complication detail: with other circulatory complications Qualified Code(s): E11.59 - Type 2 diabetes mellitus with other circulatory complications; 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 insulin Status: Acute (7) Parkinson's disease: Qualifiers: Dyskinesia presence: with dyskinesia Fluctuating manifestations: without fluctuating manifestations Qualified Code(s): G20.B1 - Parkinson's disease with dyskinesia, without mention of fluctuations Status: Acute Assessment & Plan narrative: UTI - recurrent - Hx of prostate carcinoma and nephrolithiasis - indwelling catheter - Rocephin - not septic Chronic urinary retention / Hx of prostate Ca - Flomax - finasteride - indwelling Churchill Acute COPD exacerbation - bronchodilators - prednisone - Zithromax Parkinsons disease - Sinemet, entecapone, selegiline IDDMT2 - metformin - Lantus - SS, CCD HTN - losartan GERD - PPI Glaucoma - timolol - latanoprost DVT prophylaxis - Lovenox Patient consented to telemedicine, audio-visual encounter with RN assisting with the exam. Patient located at [place], provider located in [place]. Time-Based Coding :: [TOTAL MINUTES] spent with patient and on the chart (including review of chart, obtaining history, exam, reviewing outside data, placing orders, documenting exam and treatment plan, and counseling patient) on [DATE].
--- NOTE | 2024-11-21 06:17 | PC.NURSE ---
No change in patient condition or status. Pt resting quietly with eyes closed, resps even and not labored. No distress noted at this time. Pt rouses easily to verbal stimuli and engages appropriately with RN. Pt remains connected to cardiac, resp, blood pressure, and pulse ox monitors with alarms on and audible. Call light within reach. No complaints or requests at this time.
[2024-11-21] MEDS: ALBUTEROL 2.5 MG/3 ML NEB (ADULT) INH ×4 (07:55→16:41)
[2024-11-21] MEDS: INSULIN LISPRO 100 UNIT/ML 3ML VIAL SUBCUT ×4 (08:01→22:09)
[2024-11-21] MEDS: PANTOPRAZOLE DR 20 MG TABLET PO (08:19)
[2024-11-21] MEDS: TIMOLOL 0.25% OPHTH 1 DROPS EYE-BOTH (08:19)
[2024-11-21] MEDS: LATANOPROST 0.005% OPHTH 2.5 ML 1 DROPS EYE-BOTH (08:19)
[2024-11-21] MEDS: ENTACAPONE 200 MG TABLET 100 MG PO (08:19)
[2024-11-21] MEDS: ENOXAPARIN 30 MG/0.3 ML SYRINGE SUBCUT (08:21)
[2024-11-21] MEDS: INSULIN GLARGINE 100 UNIT/ML 3ML PEN 75 UNIT SUBCUT (08:21)
[2024-11-21] MEDS: ATORVASTATIN 20 MG TABLET 10 MG PO (08:24)
[2024-11-21] MEDS: LOSARTAN 50 MG TABLET PO (08:25)
[2024-11-21] MEDS: ASPIRIN EC 81 MG TABLET PO (08:25)
[2024-11-21] MEDS: GABAPENTIN 100 MG CAPSULE PO ×2 (08:25→14:40)
[2024-11-21] MEDS: FINASTERIDE 5 MG TABLET PO (08:36)
[2024-11-21] MEDS: POTASSIUM CHLORIDE 10 MEQ TAB PO (08:36)
--- NOTE | 2024-11-21 09:05 | P.PN_ITS ---
Exam Vital Signs (past 8 hours): - 11/21/24 01:30 11/21/24 01:30 11/21/24 02:00 Pulse Rate 84 Respiratory Rate 21 Blood Pressure 138/67 140/66 Pulse Oximetry 97 Oxygen Delivery Method Room Air Fraction of Inspired Oxygen 11/21/24 02:00 11/21/24 02:30 11/21/24 02:31 Pulse Rate 85 84 84 Respiratory Rate 19 20 20 Blood Pressure Pulse Oximetry 96 96 96 Oxygen Delivery Method Room Air Room Air Room Air Fraction of Inspired Oxygen 11/21/24 02:31 11/21/24 03:00 11/21/24 03:00 Pulse Rate 82 Respiratory Rate 19 Blood Pressure 147/69 H 141/67 H Pulse Oximetry 96 Oxygen Delivery Method Room Air Fraction of Inspired Oxygen 11/21/24 03:30 11/21/24 03:31 11/21/24 03:31 Pulse Rate 81 81 Respiratory Rate 19 19 Blood Pressure 162/73 H Pulse Oximetry 97 97 Oxygen Delivery Method Room Air Room Air Fraction of Inspired Oxygen 11/21/24 04:00 11/21/24 04:01 11/21/24 04:01 Pulse Rate 79 79 Respiratory Rate 17 18 Blood Pressure 150/74 H Pulse Oximetry 96 97 Oxygen Delivery Method Room Air Room Air Fraction of Inspired Oxygen 11/21/24 04:30 11/21/24 04:31 11/21/24 04:31 Pulse Rate 79 79 Respiratory Rate 17 22 Blood Pressure 166/71 H Pulse Oximetry 97 96 Oxygen Delivery Method Room Air Room Air Fraction of Inspired Oxygen 11/21/24 05:00 11/21/24 05:00 11/21/24 05:30 Pulse Rate 79 80 Respiratory Rate 18 19 Blood Pressure 149/76 H Pulse Oximetry 97 98 Oxygen Delivery Method Room Air Room Air Fraction of Inspired Oxygen 11/21/24 05:30 11/21/24 06:00 11/21/24 06:00 Pulse Rate 80 Respiratory Rate 19 Blood Pressure 149/70 H 149/68 H Pulse Oximetry 97 Oxygen Delivery Method Fraction of Inspired Oxygen 11/21/24 07:00 11/21/24 07:00 11/21/24 07:30 Pulse Rate 78 80 Respiratory Rate 16 19 Blood Pressure 170/80 H Pulse Oximetry 97 95 Oxygen Delivery Method Fraction of Inspired Oxygen 11/21/24 07:30 11/21/24 08:00 11/21/24 08:01 Pulse Rate 81 81 Respiratory Rate 28 H 32 H Blood Pressure 176/82 H Pulse Oximetry 98 97 Oxygen Delivery Method Fraction of Inspired Oxygen 11/21/24 08:01 11/21/24 08:30 11/21/24 08:30 Pulse Rate 80 Respiratory Rate 20 Blood Pressure 176/82 H 169/78 H Pulse Oximetry 98 Oxygen Delivery Method Fraction of Inspired Oxygen 11/21/24 08:30 Pulse Rate 81 Respiratory Rate 20 Blood Pressure Pulse Oximetry 97 Oxygen Delivery Method Room Air Fraction of Inspired Oxygen 21 Fraction of Inspired Oxygen 21 SaO2/FiO2 Ratio 461 Oxygen Delivery Method Room Air Objective Labs 11/20/24 20:43 11/20/24 20:43 Labs: Laboratory Results - last 24 hr 11/20/24 11/20/24 11/20/24 20:43 22:50 22:55 WBC 8.5 RBC 4.10 L Hgb 12.0 L Hct 35.4 L MCV 86.3 MCH 29.2 MCHC 33.9 RDW 14.8 Plt Count 236 Neut % (Auto) 65.5 Lymph % (Auto) 24.1 L [place] % (Auto) 5.7 Eos % (Auto) 3.1 Baso % (Auto) 1.6 Neut # (Auto) 5600 Lymph # (Auto) 2100 [place] # (Auto) 500 Eos # (Auto) 300 Baso # (Auto) 100 PT 11.0 INR 1.0 Sodium 130 L Potassium 3.8 Chloride 100 Carbon Dioxide 17 L BUN 15 Creatinine 1.01 Estimated GFR > 60 BUN/Creatinine Ratio 14.9 Glucose 290 H POC Whole Bld Glucose Lactate 5.9 H* Calcium 9.4 Total Bilirubin 0.5 AST 21 ALT 14 Alkaline Phosphatase 100 Troponin I 0.015 0.021 NT-Pro-B Natriuret Pep 243 Total Protein 6.6 Albumin 3.8 Globulin 2.8 Albumin/Globulin Ratio 1.4 Urine Color Urine Appearance Urine pH Ur Specific [place] Urine Protein Urine Glucose (UA) Urine Ketones Urine Occult Blood Urine Nitrate Urine Bilirubin Urine Urobilinogen Ur Leukocyte Esterase Urine RBC Urine WBC Ur Squamous Epith Cells Urine Bacteria Urine Mucus Urine Yeast Ur Culture Indicated? Vol Urine Centrifuged SARS-CoV-2 (PCR) Negative Influenza A (RT-PCR) Flu a negative Influenza B (RT-PCR) Flu b negative RSV (PCR) Negative 11/20/24 11/20/2425 23:09 23:46 07:55 WBC RBC Hgb Hct MCV MCH MCHC RDW Plt Count Neut % (Auto) Lymph % (Auto) [place] % (Auto) Eos % (Auto) Baso % (Auto) Neut # (Auto) Lymph # (Auto) [place] # (Auto) Eos # (Auto) Baso # (Auto) PT INR Sodium Potassium Chloride Carbon Dioxide BUN Creatinine Estimated GFR BUN/Creatinine Ratio Glucose POC Whole Bld Glucose 315 H Lactate 4.1 H* Calcium Total Bilirubin AST ALT Alkaline Phosphatase Troponin I NT-Pro-B Natriuret Pep Total Protein Albumin Globulin Albumin/Globulin Ratio Urine Color Yellow Urine Appearance Clear Urine pH 6.0 Ur Specific [place] <=1.005 Urine Protein Negative Urine Glucose (UA) 3+ H Urine Ketones Negative Urine Occult Blood Trace-intact Urine Nitrate Positive H Urine Bilirubin Negative Urine Urobilinogen 0.2 Ur Leukocyte Esterase 2+ H Urine RBC 0-1/hpf Urine WBC 5-10/hpf H Ur Squamous Epith Cells 0-1 /hpf Urine Bacteria Moderate (10-30) H Urine Mucus 1+ H Urine Yeast 0-1/hpf Ur Culture Indicated? Specimen cultured Vol Urine Centrifuged 10ml (spun) SARS-CoV-2 (PCR) Influenza A (RT-PCR) Influenza B (RT-PCR) RSV (PCR) [facility] Medical History (Updated 11/21/24 @ 06:19 by Abel Dela Cruz MD) Acute on chronic urinary retention Urinary retention COPD exacerbation History of urinary retention Hyperlipidemia History of nephrolithiasis Left nephrolithiasis Urinary retention Recurrent UTI History of prostate cancer Acne Shoulder pain Ankle pain Measles Chicken pox Prostate cancer (~2010) Anemia Benign prostatic hyperplasia GERD (gastroesophageal reflux disease) Hypertension Type 2 diabetes mellitus Parkinson's disease Congestive heart failure Surgical History S/P deep brain stimulator placement (11/2019) History of prostate biopsy Anesthesia History of knee surgery Kidney stones Family History Father Stroke Hypertension Bacterial UTI Mother Cancer Sister Hypertension Aunt Diabetes mellitus Uncle Kidney stones Social History marital status: number of children: 3 household members: spouse Smoking Status: Former smoker alcohol intake: never Type(s) of exercise: walking frequency: 1-2 times per week Assessment & Plan Time-Based Coding :: [TOTAL MINUTES] spent with patient and on the chart (including review of chart, obtaining history, exam, reviewing outside data, placing orders, documenting exam and treatment plan, and counseling patient) on [DATE].
--- NOTE | 2024-11-21 09:33 | PC.NURSE ---
Selegiline for 0900 not given as medication is not available. Discussed w/pt need for to bring this medication from home in original packaging.
[2024-11-21] MEDS: SODIUM CHLORIDE 0.9% 1,000 ML 150 ML IV ×2 (09:34→16:48)
[2024-11-21 10:12] LABS: Lactate (Lactic Acid) 4.3 mmol/L (0.7-2.1)
[2024-11-21] MEDS: CARBIDOPA-LEVODOPA 25/100 TABLET 2.5 EACH PO ×2 (10:33→18:27)
--- NOTE | 2024-11-21 11:01 | PM.HP.1 ---
History of Present Illness History of Present Illness Date Patient Seen: 11/21/24 Chief complaint: resp. distress Narrative: This is a 74-year-old male with a history of Parkinson's disease, Deep Brain Stimulator, decreased mobility(wheelchair), prostate cancer in remission with indwelling Churchill catheter, recurrent UTIs, COPD, pacemaker, DM, HTN, anemia and HLD who presents with one week of shortness of breath and sliding off his wheelchair. ED course: CTA shows no central PE, evaluation limited secondary to poor contrast opacification motion artifact no acute cardiopulmonary process. Labs show normal white count, hemoglobin of 12 consistent with priors, platelets are 236. INR is 1. Sodium is 130, CO2 17, potassium chloride normal with normal BUN creatinine, glucose of 290 initial lactate is 5.9 repeat is 4.1 but patient did not receive any fluids. Troponin was 0.015 with a repeat of 0.012. Patient denies any chest pain or pressure. Patient has a COVID/influenza/RSV negative. UA shows nitrite positive urine 2+ leuks 5-10 WBCs moderate bacteria Started antibiotics, steroid, bronchodilator and admitted to medicine with COPD exacerbation and UTI. The lactic acid level sarah again from 4.1 to 4.3 so IV fluid was resumed, with additional bolus 1 L. [facility] Medical History (Updated 11/21/24 @ 06:19 by Abel Dela Cruz MD) Acute on chronic urinary retention Urinary retention COPD exacerbation History of urinary retention Hyperlipidemia History of nephrolithiasis Left nephrolithiasis Urinary retention Recurrent UTI History of prostate cancer Acne Shoulder pain Ankle pain Measles Chicken pox Prostate cancer (~2010) Anemia Benign prostatic hyperplasia GERD (gastroesophageal reflux disease) Hypertension Type 2 diabetes mellitus Parkinson's disease Congestive heart failure Surgical History S/P deep brain stimulator placement (11/2019) History of prostate biopsy Anesthesia History of knee surgery Kidney stones Family History Father Stroke Hypertension Bacterial UTI Mother Cancer Sister Hypertension Aunt Diabetes mellitus Uncle Kidney stones Laboratory Results - last 24 hr 11/20/24 11/20/24 11/20/24 20:43 22:50 22:55 WBC 8.5 RBC 4.10 L Hgb 12.0 L Hct 35.4 L MCV 86.3 MCH 29.2 MCHC 33.9 RDW 14.8 Plt Count 236 Neut % (Auto) 65.5 Lymph % (Auto) 24.1 L [place] % (Auto) 5.7 Eos % (Auto) 3.1 Baso % (Auto) 1.6 Neut # (Auto) 5600 Lymph # (Auto) 2100 [place] # (Auto) 500 Eos # (Auto) 300 Baso # (Auto) 100 PT 11.0 INR 1.0 Sodium 130 L Potassium 3.8 Chloride 100 Carbon Dioxide 17 L BUN 15 Creatinine 1.01 Estimated GFR > 60 BUN/Creatinine Ratio 14.9 Glucose 290 H Lactate 5.9 H* Calcium 9.4 Total Bilirubin 0.5 AST 21 ALT 14 Alkaline Phosphatase 100 Troponin I 0.015 0.021 NT-Pro-B Natriuret Pep 243 Total Protein 6.6 Albumin 3.8 Globulin 2.8 Albumin/Globulin Ratio 1.4 Urine Color Urine Appearance Urine pH Ur Specific [place] Urine Protein Urine Glucose (UA) Urine Ketones Urine Occult Blood Urine Nitrate Urine Bilirubin Urine Urobilinogen Ur Leukocyte Esterase Urine RBC Urine WBC Ur Squamous Epith Cells Urine Bacteria Urine Mucus Urine Yeast Ur Culture Indicated? Vol Urine Centrifuged SARS-CoV-2 (PCR) Negative Influenza A (RT-PCR) Flu a negative Influenza B (RT-PCR) Flu b negative RSV (PCR) Negative 11/20/24 11/20/24 23:09 23:46 WBC RBC Hgb Hct MCV MCH MCHC RDW Plt Count Neut % (Auto) Lymph % (Auto) [place] % (Auto) Eos % (Auto) Baso % (Auto) Neut # (Auto) Lymph # (Auto) [place] # (Auto) Eos # (Auto) Baso # (Auto) PT INR Sodium Potassium Chloride Carbon Dioxide BUN Creatinine Estimated GFR BUN/Creatinine Ratio Glucose Lactate 4.1 H* Calcium Total Bilirubin AST ALT Alkaline Phosphatase Troponin I NT-Pro-B Natriuret Pep Total Protein Albumin Globulin Albumin/Globulin Ratio Urine Color Yellow Urine Appearance Clear Urine pH 6.0 Ur Specific [place] <=1.005 Urine Protein Negative Urine Glucose (UA) 3+ H Urine Ketones Negative Urine Occult Blood Trace-intact Urine Nitrate Positive H Urine Bilirubin Negative Urine Urobilinogen 0.2 Ur Leukocyte Esterase 2+ H Urine RBC 0-1/hpf Urine WBC 5-10/hpf H Ur Squamous Epith Cells 0-1 /hpf Urine Bacteria Moderate (10-30) H Urine Mucus 1+ H Urine Yeast 0-1/hpf Ur Culture Indicated? Specimen cultured Vol Urine Centrifuged 10ml (spun) SARS-CoV-2 (PCR) Influenza A (RT-PCR) Influenza B (RT-PCR) RSV (PCR) Assessment & Plan Assessment and plan UTI/Lactic Acidosis - recurrent - Hx of prostate carcinoma and nephrolithiasis - Chronic indwelling catheter - UC and BC results pending - suspected Sepsis but no organ dysfunction - Rocephin IV - Lactate 5.9 to 4.1 to 4.3 to 4.2, continue IVF Bolus + Maint. Chronic urinary retention / Hx of prostate Ca - Flomax - finasteride - indwelling Churchill - Methenamine - Renacidin irrigation Acute COPD exacerbation - bronchodilators - prednisone - Zithromax Parkinsons disease - Sinemet, entecapone, selegiline - DBS IDDMT2 - metformin - Lantus - SS, CCD HTN - losartan Hyponatremia -Na 130 on admission GERD - PPI Glaucoma - timolol - latanoprost DVT prophylaxis - Lovenox Disposition: Likely to need SNF rehab before returning to family. [facility] Medical History (Updated 11/21/24 @ 06:19 by Abel Dela Cruz MD) Acute on chronic urinary retention Urinary retention COPD exacerbation History of urinary retention Hyperlipidemia History of nephrolithiasis Left nephrolithiasis Urinary retention Recurrent UTI History of prostate cancer Acne Shoulder pain Ankle pain Measles Chicken pox Prostate cancer (~2010) Anemia Benign prostatic hyperplasia GERD (gastroesophageal reflux disease) Hypertension Type 2 diabetes mellitus Parkinson's disease Congestive heart failure Surgical History S/P deep brain stimulator placement (11/2019) History of prostate biopsy Anesthesia History of knee surgery Kidney stones Family History Father Stroke Hypertension Bacterial UTI Mother Cancer Sister Hypertension Aunt Diabetes mellitus Uncle Kidney stones Social History marital status: number of children: 3 household members: spouse Smoking Status: Former smoker alcohol intake: never Type(s) of exercise: walking frequency: 1-2 times per week Meds Home Medications and Allergies Home Medications ?Medication ?Instructions ?Recorded ?Confirmed ?Type latanoprost 0.005 % eye drops 1 drp EYE-BOTH DAILY 06/02/22 11/06/24 History aspirin 81 mg tablet,delayed 81 mg PO DAILY 10/21/22 11/06/24 History release (Adult Low Dose Aspirin) acetaminophen 500 mg tablet 500 mg PO Q6H PRN Pain (Scale 04/03/23 11/06/24 History (Acetaminophen Extra Strength) Score 4-6) carbidopa 25 mg-levodopa 100 mg See Rx Instructions .Route .COMPLEX 04/03/23 11/06/24 History tablet cranberry fruit 400 mg capsule 400 mg PO DAILY 04/03/23 11/06/24 History entacapone 200 mg tablet 100 mg PO 5XD 05/18/23 11/06/24 History lidocaine HCl 2 % mucosal solution 1 applic mucous membrane BID-TID 07/27/23 11/06/24 Rx (Lidocaine Viscous) PRN pain #100 mL blood sugar diagnostic (Blood #50 ea 02/16/24 11/06/24 Rx Glucose Test strips) blood-glucose meter #1 ea 02/16/24 11/06/24 Rx lancets 31 gauge (Comfort Touch #100 ea 02/16/24 11/06/24 Rx Ultra Thin Lancets) methenamine hippurate 1 gram tablet 1 g PO BID #180 tabs 04/27/24 11/06/24 Rx metformin 850 mg tablet 850 mg PO TID #240 tabs 05/11/24 11/06/24 Rx albuterol sulfate 90 mcg/actuation 1 puff inhalation Q4-6H #8.5 grams 05/25/24 11/06/24 Rx aerosol inhaler potassium chloride 10 mEq 10 meq PO BID 05/25/24 11/06/24 History tablet,extended release selegiline HCl 5 mg tablet 5 mg PO BID 05/25/24 11/06/24 History temazepam 15 mg capsule 15 mg PO BEDTIME PRN sleep 05/25/24 11/06/24 History timolol maleate 0.25 % eye drops 1 drp EYE-BOTH DAILY 05/25/24 11/06/24 History ipratropium 0.5 mg-albuterol 3 mg 3 ml inhalation Q6H PRN shortness 07/16/24 11/06/24 Rx (2.5 mg base)/3 mL nebulization of breath or wheezing #180 mL soln omeprazole 20 mg capsule,delayed 20 mg PO DAILY #90 caps 07/26/24 11/06/24 Rx release albuterol sulfate 2.5 mg/3 mL 2.5 mg (3 mL) inhalation QID #75 mL 07/27/24 11/06/24 Rx (0.083 %) solution for nebulization gabapentin 100 mg capsule 100 mg PO 3XD #270 caps 08/14/24 11/06/24 Rx losartan 50 mg tablet 50 mg PO BID #180 tabs 08/14/24 11/06/24 Rx potassium citrate 10 mEq (1,080 10 meq PO BID #180 tabs 08/14/24 11/06/24 Rx mg) tablet,extended release citric ac 1980.6 mg-glucono 59.4 30 ml irrigation TID #900 mL 08/29/24 11/06/24 Rx mg-mag carb 980.4 mg/30 mL irrig.soln (Renacidin) pen needle, diabetic 32 gauge x #100 ea 10/11/24 11/06/24 Rx 5/ (Reshma 2nd Gen Pen Needle) insulin glargine 100 unit/mL (3 50 unit (0.5 mL) SUBCUT BEDTIME 10/27/24 11/06/24 Rx mL) subcutaneous pen (Lantus #15 mL Solostar U-100 Insulin) insulin glargine 100 unit/mL (3 75 unit (0.75 mL) SUBCUT DAILY #15 10/27/24 11/06/24 Rx mL) subcutaneous pen (Lantus mL Solostar U-100 Insulin) ipratropium 0.5 mg-albuterol 3 mg 3 ml INH [id number] #90 mL 10/27/24 11/06/24 Rx (2.5 mg base)/3 mL nebulization soln prednisone 20 mg tablet 30 mg (1.5 x 20 mg) PO DAILY #9 10/27/24 11/06/24 Rx tabs amlodipine 5 mg tablet 5 mg PO DAILY #90 tabs 11/06/24 11/06/24 Rx atorvastatin 10 mg tablet 10 mg PO DAILY #90 tabs 11/16/24 Rx finasteride 5 mg tablet 5 mg PO DAILY #90 tabs 11/16/24 Rx Allergies Allergy/AdvReac Type Severity Reaction Status Date / Time No Known Drug Allergies Allergy Verified 11/20/24 20:39 Review of Systems Review of Systems Narrative: Positive for weakness, tremor, shortness of breath. Negative for fevers, chills, sweats, chest pain, abdominal pain, dysuria, bleeding, rashes, headaches, sore throat. Exam Vital Signs (past 8 hours): - 11/21/24 03:30 11/21/24 03:31 11/21/24 03:31 Pulse Rate 81 81 Respiratory Rate 19 19 Blood Pressure 162/73 H Pulse Oximetry 97 97 Oxygen Delivery Method Room Air Room Air Fraction of Inspired Oxygen 11/21/24 04:00 11/21/24 04:01 11/21/24 04:01 Pulse Rate 79 79 Respiratory Rate 17 18 Blood Pressure 150/74 H Pulse Oximetry 96 97 Oxygen Delivery Method Room Air Room Air Fraction of Inspired Oxygen 11/21/24 04:30 11/21/24 04:31 11/21/24 04:31 Pulse Rate 79 79 Respiratory Rate 17 22 Blood Pressure 166/71 H Pulse Oximetry 97 96 Oxygen Delivery Method Room Air Room Air Fraction of Inspired Oxygen 11/21/24 05:00 11/21/24 05:00 11/21/24 05:30 Pulse Rate 79 80 Respiratory Rate 18 19 Blood Pressure 149/76 H Pulse Oximetry 97 98 Oxygen Delivery Method Room Air Room Air Fraction of Inspired Oxygen 11/21/24 05:30 11/21/24 06:00 11/21/24 06:00 Pulse Rate 80 Respiratory Rate 19 Blood Pressure 149/70 H 149/68 H Pulse Oximetry 97 Oxygen Delivery Method Fraction of Inspired Oxygen 11/21/24 07:00 11/21/24 07:00 11/21/24 07:30 Pulse Rate 78 80 Respiratory Rate 16 19 Blood Pressure 170/80 H Pulse Oximetry 97 95 Oxygen Delivery Method Fraction of Inspired Oxygen 11/21/24 07:30 11/21/24 08:00 11/21/24 08:01 Pulse Rate 81 81 Respiratory Rate 28 H 32 H Blood Pressure 176/82 H Pulse Oximetry 98 97 Oxygen Delivery Method Fraction of Inspired Oxygen 11/21/24 08:01 11/21/24 08:30 11/21/24 08:30 Pulse Rate 80 Respiratory Rate 20 Blood Pressure 176/82 H 169/78 H Pulse Oximetry 98 Oxygen Delivery Method Fraction of Inspired Oxygen 11/21/24 08:30 11/21/24 09:00 11/21/24 09:00 Pulse Rate 81 83 Respiratory Rate 20 26 H Blood Pressure 184/122 H Pulse Oximetry 97 98 Oxygen Delivery Method Room Air Fraction of Inspired Oxygen 21 11/21/24 09:30 11/21/24 09:31 11/21/24 09:31 Pulse Rate 83 83 Respiratory Rate 18 18 Blood Pressure 152/70 H Pulse Oximetry 98 98 Oxygen Delivery Method Fraction of Inspired Oxygen 11/21/24 10:00 11/21/24 10:00 11/21/24 10:30 Pulse Rate 82 84 Respiratory Rate 18 24 Blood Pressure 141/71 H Pulse Oximetry 97 94 Oxygen Delivery Method Fraction of Inspired Oxygen 11/21/24 10:31 11/21/24 10:31 Pulse Rate 84 Respiratory Rate 24 Blood Pressure 98/55 L Pulse Oximetry 98 Oxygen Delivery Method Fraction of Inspired Oxygen Fraction of Inspired Oxygen 21 SaO2/FiO2 Ratio 461 Oxygen Delivery Method Room Air Narrative Exam Narrative: Alert and oriented x3. Appears to be in moderate distress from ongoing parkinsonian movements, dyspnea and weakness. Pupils are equally round and reactive to light and accommodation. Extraocular muscles are intact. Sclerae are pink and nonicteric. Throat looks normal. No lymph nodes are felt head, neck, supraclavicular area. JVD is less than 6 cm. No carotid bruits are heard. Deep brain stimulator intact right upper chest anterior. Heart is regular rate and rhythm without murmur. Lungs are clear to auscultation bilaterally. Abdomen is obese, soft, bowel sounds positive, nontender, no organomegaly. Extremities have no ankle edema. Cranial nerves 2-12 intact. He is tremulous. Motor function is 3/5 throughout. Reflexes are symmetric. Skin has no rash or jaundice. He has multiple wheelchair induced healing scratch james on his lower legs. Churchill catheter is present Objective Labs 11/20/24 20:43 11/20/24 20:43 Labs: Laboratory Results - last 24 hr 11/20/24 11/20/24 11/20/24 20:43 22:50 22:55 WBC 8.5 RBC 4.10 L Hgb 12.0 L Hct 35.4 L MCV 86.3 MCH 29.2 MCHC 33.9 RDW 14.8 Plt Count 236 Neut % (Auto) 65.5 Lymph % (Auto) 24.1 L [place] % (Auto) 5.7 Eos % (Auto) 3.1 Baso % (Auto) 1.6 Neut # (Auto) 5600 Lymph # (Auto) 2100 [place] # (Auto) 500 Eos # (Auto) 300 Baso # (Auto) 100 PT 11.0 INR 1.0 Sodium 130 L Potassium 3.8 Chloride 100 Carbon Dioxide 17 L BUN 15 Creatinine 1.01 Estimated GFR > 60 BUN/Creatinine Ratio 14.9 Glucose 290 H POC Whole Bld Glucose Lactate 5.9 H* Calcium 9.4 Total Bilirubin 0.5 AST 21 ALT 14 Alkaline Phosphatase 100 Troponin I 0.015 0.021 NT-Pro-B Natriuret Pep 243 Total Protein 6.6 Albumin 3.8 Globulin 2.8 Albumin/Globulin Ratio 1.4 Urine Color Urine Appearance Urine pH Ur Specific [place] Urine Protein Urine Glucose (UA) Urine Ketones Urine Occult Blood Urine Nitrate Urine Bilirubin Urine Urobilinogen Ur Leukocyte Esterase Urine RBC Urine WBC Ur Squamous Epith Cells Urine Bacteria Urine Mucus Urine Yeast Ur Culture Indicated? Vol Urine Centrifuged SARS-CoV-2 (PCR) Negative Influenza A (RT-PCR) Flu a negative Influenza B (RT-PCR) Flu b negative RSV (PCR) Negative 11/20/24 11/20/24 11/21/24 23:09 23:46 07:55 WBC RBC Hgb Hct MCV MCH MCHC RDW Plt Count Neut % (Auto) Lymph % (Auto) [place] % (Auto) Eos % (Auto) Baso % (Auto) Neut # (Auto) Lymph # (Auto) [place] # (Auto) Eos # (Auto) Baso # (Auto) PT INR Sodium Potassium Chloride Carbon Dioxide BUN Creatinine Estimated GFR BUN/Creatinine Ratio Glucose POC Whole Bld Glucose 315 H Lactate 4.1 H* Calcium Total Bilirubin AST ALT Alkaline Phosphatase Troponin I NT-Pro-B Natriuret Pep Total Protein Albumin Globulin Albumin/Globulin Ratio Urine Color Yellow Urine Appearance Clear Urine pH 6.0 Ur Specific [place] <=1.005 Urine Protein Negative Urine Glucose (UA) 3+ H Urine Ketones Negative Urine Occult Blood Trace-intact Urine Nitrate Positive H Urine Bilirubin Negative Urine Urobilinogen 0.2 Ur Leukocyte Esterase 2+ H Urine RBC 0-1/hpf Urine WBC 5-10/hpf H Ur Squamous Epith Cells 0-1 /hpf Urine Bacteria Moderate (10-30) H Urine Mucus 1+ H Urine Yeast 0-1/hpf Ur Culture Indicated? Specimen cultured Vol Urine Centrifuged 10ml (spun) SARS-CoV-2 (PCR) Influenza A (RT-PCR) Influenza B (RT-PCR) RSV (PCR) 11/21/24 09:46 WBC RBC Hgb Hct MCV MCH MCHC RDW Plt Count Neut % (Auto) Lymph % (Auto) [place] % (Auto) Eos % (Auto) Baso % (Auto) Neut # (Auto) Lymph # (Auto) [place] # (Auto) Eos # (Auto) Baso # (Auto) PT INR Sodium Potassium Chloride Carbon Dioxide BUN Creatinine Estimated GFR BUN/Creatinine Ratio Glucose POC Whole Bld Glucose Lactate 4.3 H* Calcium Total Bilirubin AST ALT Alkaline Phosphatase Troponin I NT-Pro-B Natriuret Pep Total Protein Albumin Globulin Albumin/Globulin Ratio Urine Color Urine Appearance Urine pH Ur Specific [place] Urine Protein Urine Glucose (UA) Urine Ketones Urine Occult Blood Urine Nitrate Urine Bilirubin Urine Urobilinogen Ur Leukocyte Esterase Urine RBC Urine WBC Ur Squamous Epith Cells Urine Bacteria Urine Mucus Urine Yeast Ur Culture Indicated? Vol Urine Centrifuged SARS-CoV-2 (PCR) Influenza A (RT-PCR) Influenza B (RT-PCR) RSV (PCR) Assessment & Plan Time-Based Coding :: [TOTAL MINUTES] spent with patient and on the chart (including review of chart, obtaining history, exam, reviewing outside data, placing orders, documenting exam and treatment plan, and counseling patient) on [DATE].
[2024-11-21 11:28] LABS: Reflexed Lactate in 2 Hours Y
--- NOTE | 2024-11-21 11:41 | PC.NURSE ---
at bedside. Discussed need for Selegiline to be brought in original bottle to ER for verification. currently has pills in a mediset but not by pill or in original bottle.
[2024-11-21 12:17] LABS: Lactate 2HR (Lactic Acid Rflx) 4.1 mmol/L (0.7-2.1)
[2024-11-21] MEDS: SODIUM CHLORIDE 0.9% 1,000 ML 1000 ML IV ×2 (12:40→15:22)
[2024-11-21 14:24] LABS: Lactate (Lactic Acid) 3.5 mmol/L (0.7-2.1)
[2024-11-21] MEDS: CARBIDOPA-LEVODOPA 25/100 TABLET 3 EACH PO (14:37)
[2024-11-21 15:46] LABS: Reflexed Lactate in 2 Hours Y
[2024-11-21 16:24] LABS: Lactate 2HR (Lactic Acid Rflx) 3.8 mmol/L (0.7-2.1)
[2024-11-21] MEDS: MORPHINE 4 MG/ML INJ 2 MG IV (16:47)
[2024-11-21] MEDS: MORPHINE 4 MG/ML INJ IV (17:42)
[2024-11-21] MEDS: dexmedeTOMIDine in 0.9 % NaCL 400 MCG/100 ML PLAST..BAG IV (17:51)
[2024-11-21] MEDS: methylPREDNISolone succ 125 MG/2 ML VIAL IV (18:27)
[2024-11-21 18:45] LABS: Lactate (Lactic Acid) 3.8 mmol/L (0.7-2.1)
--- NOTE | 2024-11-21 18:53 | PC.NURSE ---
Pt arrived via bed from ACU to room 228 due to Respiratory distress requiring BIPAP. FiO2 30%, pt extremely agitated requiring additional sedation to be able to tolerate BiPAP (see emar for doses of Morphie for WOB and ativan for anxiety) Dr Granado at bedside, Precedex ordered to assist pt to tolerate BiPAP RASS goal -1. Pt tolerating BIPAP at this time, no further needs, call light within reach, care ongoing.
[2024-11-21 20:04] LABS: Reflexed Lactate in 2 Hours Y
[2024-11-21 21:12] LABS: Allen Test for ABG Passed? Positive; Blood Gas Collection Site Right Radial; Delivery System BiPAP; HCO3 ABG 24 mmol/L (23-27); Oxygen Saturation ABG 97 % (95-100); PCO2 ABG 35.1 mmHg (35-45); PEEP 8; PO2 ABG 83 mmHg (80-100); TCO2 ABG 23 mmol/L (23-27)
[2024-11-21 21:22] LABS: Lactate 2HR (Lactic Acid Rflx) 1.4 mmol/L (0.7-2.1)
[2024-11-21] MEDS: AZITHROMYCIN 500 MG in DEXTROSE 5% IN WATER 250 ML 250 MG IV (22:08)
[2024-11-21] MEDS: INSULIN GLARGINE 100 UNIT/ML 3ML PEN 50 UNIT SUBCUT (22:11)
[2024-11-22] VITALS (64 sets, daily range): BP systolic 124–199; BP diastolic 60–97; PULSE 71–92; RESP 10–41; TEMP 36.6–37; O2SAT 93–100
[2024-11-22] MEDS: methylPREDNISolone succ 125 MG/2 ML VIAL IV ×3 (01:17→12:22)
[2024-11-22] MEDS: dexmedeTOMIDine in 0.9 % NaCL 400 MCG/100 ML PLAST..BAG 11.907 MCG IV (02:45)
[2024-11-22] MEDS: dexmedeTOMIDine in 0.9 % NaCL 400 MCG/100 ML PLAST..BAG 9.525 MCG IV (04:57)
[2024-11-22] MEDS: SODIUM CHLORIDE 0.9% 1,000 ML 150 ML IV ×2 (04:59→11:35)
[2024-11-22 05:24] LABS: Add Manual Diff / Slide Review NO; Hematocrit 36.9 % (41-53); Hemoglobin 12.4 g/dL (13.5-17.5); Lymphocytes Absolute Auto 400 /uL (1100-4500); Mean Corpuscular HGB Conc 33.6 % (30-36); Mean Corpuscular Hemoglobin 29.3 PG (26-34); Mean Corpuscular Volume 87.2 fL (80-100); Platelet Count 209 X10^3/uL (150-400)
[2024-11-22 05:37] LABS: Alanine Aminotransferase 8 IU/L (<50); Albumin 3.9 g/dL (3.5-5.0); Albumin Globulin Ratio 1.4 (1.0-2.8); Alkaline Phosphatase 67 U/L (38-126); Blood Urea Nitrogen 18 mg/dL (9-20); Calcium 8.7 mg/dL (8.4-10.2); Carbon Dioxide 20 mmol/L (22-32); Chloride 108 mmol/L (98-107); Estimated Glomerular Filt Rate > 60 mL/min (>60); Globulin 2.7 g/dL (1.7-4.1); Glucose 308 mg/dL (70-99); HEMOLYSIS < 15 (0-50); Potassium 3.9 mmol/L (3.4-5.1); Sodium 136 mmol/L (137-145); Total Protein 6.6 g/dL (6.3-8.2)
--- NOTE | 2024-11-22 08:11 | PM.PN.1 ---
Subjective Subjective Interval history: Summary: Patient presented with confusion and concern for UTI. He decompensated with extreme bronchospasm and acute respiratory distress. He was placed on BiPAP at about 1600 on November 21. This is relatively consistent with previous presentations. Precedex was used in addition to lorazepam and morphine for agitation and air hunger. He did well overnight. ED course: CTA shows no central PE, evaluation limited secondary to poor contrast opacification motion artifact no acute cardiopulmonary process. Labs show normal white count, hemoglobin of 12 consistent with priors, platelets are 236. INR is 1. Sodium is 130, CO2 17, potassium chloride normal with normal BUN creatinine, glucose of 290 initial lactate is 5.9 repeat is 4.1 but patient did not receive any fluids. Troponin was 0.015 with a repeat of 0.012. Patient denies any chest pain or pressure. Patient has a COVID/influenza/RSV negative. UA shows nitrite positive urine 2+ leuks 5-10 WBCs moderate bacteria. Started antibiotics, steroid, bronchodilator and admitted to medicine with COPD exacerbation and UTI. S: He was on BiPAP overnight, has been off much of the day in his doing much better on oxygen nasal cannula. He was still mildly short of breath, but denies cough, or pain. He was going to go back on BiPAP after dinner in his comfortable with this plan. O: NAD, alert and oriented. Soft speech. Chronically ill in appearance. Lungs with diminished breath sounds and prolonged expiratory phase but improved over yesterday, normal rate and effort. Heart is regular, no murmur gallop or rub. Abdomen is soft, non distended. Extremities are free of edema. IMAGING: Chest CTA: No central pulmonary embolism. Evaluation is limited secondary to poor contrast opacification and motion artifact. No acute cardiopulmonary process. CXR: No acute cardiopulmonary abnormality is seen. Imaging reviewed with presley pattens. A/P: 1. COPD exacerbation, improved. 2. Acute hypoxic and hypercapnic respiratory failure, active. 3. Urinary tract infection (associated with chronic indwelling Churchill catheter), active. 4. Significant lactic acidosis, resolved (1.4). 5. Hyponatremia, likely hypovolemic. Improving. 6. Chronic urinary retention with chronic indwelling Churchill. Active. 7. Parkinson's disease, active. 8. DM 2, insulin dependent, active. 9. Hypertension, stable. PLAN: -BiPAP support as needed, will use overnight. -wean O2 as able. -continue corticosteroids and bronchodilators. -continue antibiotics. -monitor cultures. HEMALATHA: 11/24 (lives at home with his ). Exam Vital Signs (past 8 hours): - 11/22/24 00:30 11/22/24 01:00 11/22/24 01:00 Pulse Rate 81 79 Respiratory Rate 21 26 H Blood Pressure 177/82 H Pulse Oximetry 96 95 Oxygen Delivery Method Fraction of Inspired Oxygen 11/22/24 01:30 11/22/24 02:00 11/22/24 02:00 Pulse Rate 78 74 Respiratory Rate 29 H Blood Pressure 168/80 H Pulse Oximetry 95 95 Oxygen Delivery Method BiPAP Fraction of Inspired Oxygen 11/22/24 02:00 11/22/24 02:00 11/22/24 02:30 Pulse Rate 76 76 Respiratory Rate 30 H 33 H Blood Pressure 168/80 H Pulse Oximetry 95 95 Oxygen Delivery Method Fraction of Inspired Oxygen 11/22/24 03:00 11/22/24 03:00 11/22/24 03:30 Pulse Rate 75 75 Respiratory Rate 31 H 28 H Blood Pressure 173/84 H Pulse Oximetry 95 95 Oxygen Delivery Method Fraction of Inspired Oxygen 11/22/24 04:00 11/22/24 04:00 11/22/24 04:26 Pulse Rate 75 Respiratory Rate 28 H Blood Pressure 178/84 H 178/84 H Pulse Oximetry 95 Oxygen Delivery Method Fraction of Inspired Oxygen 30 11/22/24 04:30 11/22/24 05:00 11/22/24 05:00 Pulse Rate 74 74 Respiratory Rate 30 H 20 Blood Pressure 183/84 H Pulse Oximetry 96 95 Oxygen Delivery Method Fraction of Inspired Oxygen 11/22/24 05:30 11/22/24 06:00 11/22/24 06:00 Pulse Rate 73 74 Respiratory Rate 29 H 31 H Blood Pressure Pulse Oximetry 95 97 Oxygen Delivery Method BiPAP Fraction of Inspired Oxygen 11/22/24 06:01 11/22/24 06:01 Pulse Rate 73 Respiratory Rate 23 Blood Pressure 169/82 H Pulse Oximetry 97 Oxygen Delivery Method Fraction of Inspired Oxygen Fraction of Inspired Oxygen 30 SaO2/FiO2 Ratio 316 Oxygen Delivery Method BiPAP Oxygen Flow Rate 30 Objective Labs 11/22/24 04:54 11/22/24 04:54 Labs: Laboratory Results - last 24 hr 11/21/24 11/21/24 11/21/24 09:46 11:28 11:55 WBC RBC Hgb Hct MCV MCH MCHC RDW Plt Count Neut % (Auto) Lymph % (Auto) [place] % (Auto) Eos % (Auto) Baso % (Auto) Neut # (Auto) Lymph # (Auto) [place] # (Auto) Eos # (Auto) Baso # (Auto) ABG Sample Site ABG pH ABG pCO2 ABG pO2 ABG HCO3 ABG Total CO2 ABG O2 Saturation ABG Base Excess Andres Test O2 Delivery Device FiO2 % Pressure Support PEEP or CPAP Sodium Potassium Chloride Carbon Dioxide BUN Creatinine Estimated GFR BUN/Creatinine Ratio Glucose POC Whole Bld Glucose 273 H Lactate 4.3 H* 4.1 H* Calcium Total Bilirubin AST ALT Alkaline Phosphatase Total Protein Albumin Globulin Albumin/Globulin Ratio 11/21/24 11/21/24 11/21/24 14:04 16:05 17:12 WBC RBC Hgb Hct MCV MCH MCHC RDW Plt Count Neut % (Auto) Lymph % (Auto) [place] % (Auto) Eos % (Auto) Baso % (Auto) Neut # (Auto) Lymph # (Auto) [place] # (Auto) Eos # (Auto) Baso # (Auto) ABG Sample Site ABG pH ABG pCO2 ABG pO2 ABG HCO3 ABG Total CO2 ABG O2 Saturation ABG Base Excess Andres Test O2 Delivery Device FiO2 % Pressure Support PEEP or CPAP Sodium Potassium Chloride Carbon Dioxide BUN Creatinine Estimated GFR BUN/Creatinine Ratio Glucose POC Whole Bld Glucose 198 H Lactate 3.5 H 3.8 H Calcium Total Bilirubin AST ALT Alkaline Phosphatase Total Protein Albumin Globulin Albumin/Globulin Ratio 11/21/24 11/21/24 11/21/24 18:05 20:57 21:09 WBC RBC Hgb Hct MCV MCH MCHC RDW Plt Count Neut % (Auto) Lymph % (Auto) [place] % (Auto) Eos % (Auto) Baso % (Auto) Neut # (Auto) Lymph # (Auto) [place] # (Auto) Eos # (Auto) Baso # (Auto) ABG Sample Site Right radial ABG pH 7.44 ABG pCO2 35.1 ABG pO2 83 ABG HCO3 24 ABG Total CO2 23 ABG O2 Saturation 97 ABG Base Excess 0.0 Andres Test Positive O2 Delivery Device Bipap FiO2 % 30.0 % Pressure Support 12 PEEP or CPAP 8 Sodium Potassium Chloride Carbon Dioxide BUN Creatinine Estimated GFR BUN/Creatinine Ratio Glucose POC Whole Bld Glucose Lactate 3.8 H 1.4 Calcium Total Bilirubin AST ALT Alkaline Phosphatase Total Protein Albumin Globulin Albumin/Globulin Ratio 11/21/24 11/22/24 11/22/24 21:16 04:54 07:46 WBC 10.0 RBC 4.23 L Hgb 12.4 L Hct 36.9 L MCV 87.2 MCH 29.3 MCHC 33.6 RDW 14.9 H Plt Count 209 Neut % (Auto) 94.0 H D Lymph % (Auto) 4.2 L [place] % (Auto) 1.1 L Eos % (Auto) 0.0 L Baso % (Auto) 0.7 Neut # (Auto) 9400 H Lymph # (Auto) 400 L [place] # (Auto) 100 Eos # (Auto) 0 Baso # (Auto) 100 ABG Sample Site ABG pH ABG pCO2 ABG pO2 ABG HCO3 ABG Total CO2 ABG O2 Saturation ABG Base Excess Andres Test O2 Delivery Device FiO2 % Pressure Support PEEP or CPAP Sodium 136 L Potassium 3.9 Chloride 108 H Carbon Dioxide 20 L BUN 18 Creatinine 0.70 Estimated GFR > 60 BUN/Creatinine Ratio 25.7 H Glucose 308 H POC Whole Bld Glucose 289 H 304 H Lactate Calcium 8.7 Total Bilirubin 0.4 AST 20 ALT 8 Alkaline Phosphatase 67 Total Protein 6.6 Albumin 3.9 Globulin 2.7 Albumin/Globulin Ratio 1.4 [facility] Medical History (Updated 11/21/24 @ 06:19 by Abel Dela Cruz MD) Acute on chronic urinary retention Urinary retention COPD exacerbation History of urinary retention Hyperlipidemia History of nephrolithiasis Left nephrolithiasis Urinary retention Recurrent UTI History of prostate cancer Acne Shoulder pain Ankle pain Measles Chicken pox Prostate cancer (~2010) Anemia Benign prostatic hyperplasia GERD (gastroesophageal reflux disease) Hypertension Type 2 diabetes mellitus Parkinson's disease Congestive heart failure Surgical History S/P deep brain stimulator placement (11/2019) History of prostate biopsy Anesthesia History of knee surgery Kidney stones Family History Father Stroke Hypertension Bacterial UTI Mother Cancer Sister Hypertension Aunt Diabetes mellitus Uncle Kidney stones Social History marital status: number of children: 3 household members: spouse and children Smoking Status: Former smoker alcohol intake: never Type(s) of exercise: walking frequency: 1-2 times per week Assessment & Plan Time-Based Coding :: [TOTAL MINUTES] spent with patient and on the chart (including review of chart, obtaining history, exam, reviewing outside data, placing orders, documenting exam and treatment plan, and counseling patient) on [DATE].
[2024-11-22] MEDS: ALBUTEROL/IPRATROPIUM 3 ML AMPUL INH ×3 (08:59→18:02)
[2024-11-22] MEDS: INSULIN GLARGINE 100 UNIT/ML 3ML PEN 75 UNIT SUBCUT (09:26)
[2024-11-22] MEDS: INSULIN LISPRO 100 UNIT/ML 3ML VIAL SUBCUT ×4 (09:27→21:58)
[2024-11-22] MEDS: LOSARTAN 50 MG TABLET PO ×2 (09:27→20:24)
[2024-11-22] MEDS: GABAPENTIN 100 MG CAPSULE PO ×3 (09:27→20:24)
[2024-11-22] MEDS: POTASSIUM CHLORIDE 10 MEQ TAB PO ×2 (09:28→20:24)
[2024-11-22] MEDS: ASPIRIN EC 81 MG TABLET PO (09:28)
[2024-11-22] MEDS: FINASTERIDE 5 MG TABLET PO (09:29)
[2024-11-22] MEDS: ENOXAPARIN 40 MG/0.4 ML SYRINGE SUBCUT (09:29)
[2024-11-22] MEDS: ATORVASTATIN 20 MG TABLET 10 MG PO (09:29)
[2024-11-22] MEDS: CARBIDOPA-LEVODOPA 25/100 TABLET 2.5 EACH PO ×3 (09:59→22:02)
[2024-11-22] MEDS: LATANOPROST 0.005% OPHTH 2.5 ML 1 DROPS EYE-BOTH (10:09)
--- NOTE | 2024-11-22 10:43 | CM.DANOTE ---
Patient is a 74 yo male READMIT and admitted INPT Status on 11/21/24 for COPD Exac/UTI. Pt has [employer] [facility] for insurance and his PCP is Dr. Ravindra Goldsmith. EMR was reviewed. Per MD, pt has hx of Parkinsons with deep brain stimulator and prostate CA in remission and recently admitted for similar COPD exac and recurrent UTIs. Pt requiring bipap for respiratory distress. Likely another couple to few days. PT/OT ordered and pending. SW met bedside with pt, who is now on Nasal Cannnula for oxygen, and explained role and he confirms that he still lives at home with his spouse, adult son more and Dtr who assist. Pt has hx of falls and uses w/c, walker, shower bench at home. Pt confirms that he and family chose to discharge home with ongoing [facility] last month rather than go to SNF but pt states he is now anticipating possible need for SNF at d/c. Pt feeling poorly today and would like to see how he does with PT/OT before making final decision on Resume Sig HH vs SNF and unsure if he would want [facility] or another SNF at d/c. If SNF needed, will need to confirm if [place] or Medicare are primary and if auth needed for [place] for SNF. Unclear per eligibility in EMR. Plan: SW to follow closely for PT/OT to determine likely need of SNF vs return home with family and Resumption of Sig HH. RENATE Selby Discharge Planning/Care Management Advanced directive, confirm from FAMILY Start: 11/21/24 15:05 Freq: Q24H Status: Active Protocol: Document 11/21/24 15:17 LW (Rec: 11/21/24 15:21 LW [id number]) Advance Directive, confirm on record Time 15:21 Person contacted patient Copy received No CM Discharge Assessment Start: 11/21/24 06:45 Freq: Status: Active Protocol: Document 11/22/24 10:30 BF (Rec: 11/22/24 10:37 BF [id number]) Discharge Planning Assessment Assigned Discharge RENATE [address] Office Assistant Provider Ravindra Goldsmith Insurance [facility] DPOA/Assigned spouse Designee Name Advance Directives? No Advance Directives No on File History Provided By Patient,Significant Other,Medical Record Has Patient been Yes admitted in last 30 days? Comment Recently discharged home last month Sept 2025 with Sig HH Prior Living House Arrangements Household Members spouse,children Type of Relies on Others transporation used prior to admit Independent with ADL No 's Is patient alert and Yes oriented? Needs Assistance Bathing,Meal Prep,Managing Medications,Home Chores / With Shopping Caregiver for No Another Community Services Physical Therapy,Occupational Therapy,Home Health Aid, used prior to Home Health Nurse admission: DME Already Rented / Wheelchair,Elevated Toilet Seat,FWW / Walker Owned Comment requested a new WC. community resources provided. Patient/Family Custodial Facility,Home with Home Health Preference Comment SNF vs return home with Resume Sig [facility] Barriers to No Discharge Comment Weakness, not at PLOF, and readmit Discharge Plan Custodial Facility Transportation Likely cabulance if SNF Arrangement Referrals Initiated Custodial,Other If patient plan is See prior comment home with home health: Has signed face to face form been completed? Medicare Choice List Yes Provided Medicare choice list patient reviewed on electronic tablet with Whiteboard Updated Yes in Patient Room with name and ext. # of Motor Equipment Sergeant Review Status In Process Please Provide Date 11/22/24 Initial DC Assessment Was Performed Next Review Type Continued Stay Review
--- NOTE | 2024-11-22 11:33 | OT.IP.EVAL ---
Current Diagnoses Type 2 diabetes mellitus with other circulatory complications (11/21/24) Parkinson's disease with dyskinesia, without mention of fluctuations (11/21/24) Essential (primary) hypertension (11/21/24) Chronic obstructive pulmonary disease with (acute) exacerbation (11/21/24) Urinary tract infection, site not specified (11/21/24) [employer] (current) use of insulin (11/21/24) Personal history of other specified conditions (11/21/24) Past Medical History (Last Updated 11/21/24 @ 06:19 by Abel Dela Cruz MD) Acne Acute on chronic urinary retention Anemia Ankle pain Benign prostatic hyperplasia Chicken pox Congestive heart failure COPD exacerbation GERD (gastroesophageal reflux disease) History of nephrolithiasis History of prostate cancer History of urinary retention Hyperlipidemia Hypertension Left nephrolithiasis Measles Parkinson's disease Prostate cancer (~2010) Recurrent UTI Shoulder pain Type 2 diabetes mellitus Urinary retention Urinary retention Surgical History (Last Reviewed 11/06/24 @ 16:52 by Ravindra Goldsmith DO) Anesthesia History of knee surgery History of prostate biopsy Kidney stones S/P deep brain stimulator placement (11/2019) Occupational Therapy Inpatient Evaluation/Re-Eval M1 PT/OT-IP Prior Functional Status Start: 11/22/24 12:15 Freq: NEEDED Status: Active Protocol: Document 11/22/24 12:15 CCC (Rec: 11/22/24 12:32 [facility] Desktop) Medical Review Prior Functional Status Communication I Mobility and Gait Pt uses Up Walker at home and assist from his varies from SBA to MODA pending how he is doing. Activities of Daily Pt's has to assist with all ADL needs varies from Living and IADL's SBA to MAXA pending how pt is doing. Social History Household Members spouse,children Living Arrangements House Number of Floors ( One Floor Floors) Number of Stairs To NO steps. Enter/Railing? Home Environment Standard Height Toilet,Walk in Shower Home Equipment Manual Wheelchair,Shower Seat without Backrest,Hand Held Shower,Bed Rails,Grab Bars Near Toilet,Grab Bars In Shower Additional Social Pt has adjustable bed. History Comment M2 OT-IP Current Condition Start: 11/22/24 12:15 Freq: Status: Active Protocol: Document 11/22/24 12:15 [facility] (Rec: 11/22/24 12:32 [facility] Desktop) Occupational Therapy Current Condition Current Condition Evaluation Date 11/22/24 Treatment Diagnosis UTI, COPD exacerbation Diagnosis Onset Date 11/21/24 M3 OT- IP Subjective and Pain Start: 11/22/24 12:15 Freq: Status: Active Protocol: Document 11/22/24 12:15 [facility] (Rec: 11/22/24 12:32 [facility] Desktop) OT- Subjective Occupational Therapy Visit Type Type Initial Evaluation Visit Start Time 10:55 Visit Stop Time 11:33 Occupational Therapy Visit Comments Patient Comments Pt agreed to get up to the recliner. Patient/Caregiver TO go to skilled rehab. Goals OT Pain Assessment Pain When Pain Assessed At Rest Pain Present Pain Present Pain Reported Location Bilateral Shoulder Intensity 6 Scale Used Numeric (0 - 10) M4 OT- IP ADL's Start: 11/22/24 12:15 Freq: Status: Active Protocol: Document 11/22/24 12:15 [facility] (Rec: 11/22/24 12:32 [facility] Desktop) OT [id number] Comments OT Self-Feeding Not at meal time. Comments OT ADL-Grooming General Evaluation Areas Needing Retrieving/Set-up of Grooming Items Assistance Comments OT Grooming Comments Pt needing set-up assist while seated. OT ADL-Oral Care General Eval Oral Care Ability Standby Assistance Areas of Assistance Retrieving/Set-Up of Items OT ADL-Dressing General Eval Lower Body Dressing Total Assistance Ability OT ADL-Toileting General Evaluation Toileting Ability Total Assistance Areas Needing Empty Catheter or Colostomy Assistance Comments OT Toileting Churchill in place. Comments OT ADL-Bathing Comments OT Bathing Comments Not performed. M5 OT- IP IADL's Start: 11/22/24 12:15 Freq: Status: Active Protocol: Document 11/22/24 12:15 [facility] (Rec: 11/22/24 12:32 [facility] Desktop) OT-Instrumental Activities of Daily Living Home Safety Awareness Awareness of Need Good Awareness for Assistance at Home Medication Management Medication Caregiver Administers Management Money Management Money Management Pt states still does the bills, however his Comments supervises him. Meal Preparation Meal Preparation Caregiver Provides Assist New Business Clerk New Business Clerk Caregiver Provides Assist M6 OT- IP Functional Cognition Start: 11/22/24 12:15 Freq: Status: Active Protocol: Document 11/22/24 12:15 [facility] (Rec: 11/22/24 12:32 [facility] Desktop) Cognitive Factors Limiting Selfcare Function Cognitive Ability Level of Alertness Alert Patient Orientation Name,Age,Birthday,Month,Date,Year,Day of Week,Place, Situation Attention Span Capable of Focused Attention,Capable of Sustained Ability Attention Ability to Follow Able to Follow One Step Commands Commands Cognitive Comments Cognitive Assessment Pt able to follow commands for ADL and mobility needs. Comments OT- Vision and Hearing OT- Hearing Assessment OT- Hearing WFL Assessment OT- Vision Assessment Visual Acuity Glasses All The Time M7 OT- IP Mobility and Balance Start: 11/22/24 12:15 Freq: Status: Active Protocol: Document 11/22/24 12:15 [facility] (Rec: 11/22/24 12:32 [facility] Desktop) OT- Bed Mobility Assessment Supine to Sit Supine to Sit Assist Maximum Assistance,1 Person Assistance,Head of Bed Elevated,Bedrails Scooting Scooting to Edge of Maximum Assistance,1 Person Assistance Bed OT-Transfer Assessment Sit to and From Stand Sit to and from Maximum Assistance,2 Person Assistance Stand Transfers Transfer Ability Maximum Assistance,2 Person Assistance Technique Transfer Destination Bed,Chair Transfer Technique Stand Step Pivot Devices Transfer Assistive Gait Belt,Front Wheeled Walker Devices Comments Mobility Comments Pt able to move his legs with assist and assist to help get his trunk upright. MAX AX 2 to stand to the fww via blocking his feet. Assist to hold down the FWW , assist for balance, and to guide the FWW for transfer. At this time best to use jorge l lift especially if pt is tired. VC for pt to move his feet. OT- Balance Assessment Sitting Balance and Reactions Static Sitting Poor Balance Ability Dynamic Sitting Poor Balance Ability Standing Balance and Reactions Static Standing Poor Balance Ability Dynamic Standing Poor Balance Ability Comments Other Balance Tests/ Pt tends to lean into posterior tilt and needing cues Deviations/Treatment to stay forwards. Pt's states has slipped out of : his wc at times. M8 OT- IP Objective Assessments Start: 11/22/24 12:15 Freq: Status: Active Protocol: Document 11/22/24 12:15 [facility] (Rec: 11/22/24 12:32 [facility] Desktop) OT Gross Range of Motion Upper Extremity Range of Motion Assessment Bilaterally Impaired ROM Impairments shoulder flexion RUE 0-45, LUE 0-50 OT Strength Upper Extremity Strength Assessment Bilaterally Impaired Comments Strength Comments BUE shoulders 3-/5, elbow to distal 4+/5 OT- Coordination Assessment Upper Extremity Finger to Nose Test Within Functional Limits OT-Muscle Tone Assessment Comments Muscle Tone Comments Pt has tremors. M9 OT- IP Assessment and Plan Start: 11/22/24 12:15 Freq: Status: Active Protocol: Document 11/22/24 12:15 [facility] (Rec: 11/22/24 12:32 [facility] Desktop) OT Summary Assessment and Plan Potential Rehabilitation Good Potential Analytic Complexity Moderate at Evaluation Summary OT Impairments Pain,Strength,Balance,Coordination,Functional Mobility, Self-Feeding,Grooming,Dressing,Toileting,Bathing,Toilet Transfers,Shower Transfers,Activity Tolerance Progress Towards Progressing Toward Goals Goals Assessment Summary Pt MOD complexity and main barriers are decreased endurance, activity tolerance and now on 3L on O2. Pt needing extensive 2 person assist for transfer with FWW and needing assist to hold down the FWW. Normally pt uses a Up walker. stable for pt. Pt will benefit from skilled rehab to return to prior level of care especially for mobility needs. Pt 's states prior assists pt from SBA to MODA for all needs at home pending how he feels from day to day. Goals Self-Feeding Goal Standby Assistance Grooming Goal Standby Assistance Dressing Goal Moderate Assistance Toileting Goal Moderate Assistance Bathing Goal Moderate Assistance Toilet Transfer Goal Contact Guard Assistance Shower Transfer Goal Minimal Assistance Days to Meet Goals 20 Frequency of Treatment Other frequency 5x/week Treatment Plan OT Treatment Plan ADL Training,Functional Mobility,Patient/Family Education,Discharge Planning Other Treatment Transfer to [facility] with MODA x2 with FWW. Recommendations and Next Treatment Focus Discharge Recommendations OT Discharge SNF Rehab Recommendations Transportation Needs Wheelchair/Cabulance at Discharge
--- NOTE | 2024-11-22 13:48 | PT.IIE ---
Current Diagnoses Type 2 diabetes mellitus with other circulatory complications (11/21/24) Parkinson's disease with dyskinesia, without mention of fluctuations (11/21/24) Essential (primary) hypertension (11/21/24) Chronic obstructive pulmonary disease with (acute) exacerbation (11/21/24) Urinary tract infection, site not specified (11/21/24) assistant terminal manager (current) use of insulin (11/21/24) Personal history of other specified conditions (11/21/24) Surgical History (Last Reviewed 11/06/24 @ 16:52 by Ravindra Goldsmith DO) Anesthesia History of knee surgery History of prostate biopsy Kidney stones S/P deep brain stimulator placement (11/2019) Medical History (Last Updated 11/21/24 @ 06:19 by Abel Dela Cruz MD) Acne Acute on chronic urinary retention Anemia Ankle pain Benign prostatic hyperplasia Chicken pox Congestive heart failure COPD exacerbation GERD (gastroesophageal reflux disease) History of nephrolithiasis History of prostate cancer History of urinary retention Hyperlipidemia Hypertension Left nephrolithiasis Measles Parkinson's disease Prostate cancer (~2010) Recurrent UTI Shoulder pain Type 2 diabetes mellitus Urinary retention Urinary retention Physical Therapy Inpatient Evaluation/Re-Eval M1 PT/OT-IP Prior Functional Status Start: 11/22/24 12:15 Freq: NEEDED Status: Active Protocol: Document 11/22/24 13:37 SAK (Rec: 11/22/24 13:48 SAK [id number]) Medical Review Prior Functional Status Communication I Mobility and Gait Pt uses Up Walker at home and assist from his varies from SBA to MODA pending how he is doing. Activities of Daily Pt's has to assist with all ADL needs varies from Living and IADL's SBA to MAXA pending how pt is doing. Social History Household Members spouse,children Living Arrangements House Number of Floors ( One Floor Floors) Number of Stairs To NO steps. Enter/Railing? Home Environment Standard Height Toilet,Walk in Shower Home Equipment Manual Wheelchair,Shower Seat without Backrest,Hand Held Shower,Bed Rails,Grab Bars Near Toilet,Grab Bars In Shower Additional Social Pt has adjustable bed. History Comment M2 PT-IP Current Condition Start: 11/22/24 13:36 Freq: NEEDED Status: Active Protocol: Document 11/22/24 13:37 SAK (Rec: 11/22/24 13:48 [facility] [id number]) Physical Therapy Current Condition Current Condition Evaluation Date 11/22/24 Treatment Diagnosis weakness M3 PT-IP Subjective Start: 11/22/24 13:36 Freq: NEEDED Status: Active Protocol: Document 11/22/24 13:37 SAK (Rec: 11/22/24 13:48 SAK [id number]) Subjective Physical Therapy Visit Type Type Initial Evaluation Visit Start Time 13:15 Visit Stop Time 13:39 Number of VP CARE MANAGEMENT Visits 0 Physical Therapy Visit Comments Patient Comments Patient agreeable to PT but doesn't want to return to bed after, wants to stay up in chair Therapy Pain Assessment Pain When Pain Assessed At Rest Pain Present Pain Present Pain Reported M4 PT-IP Mobility and Gait Start: 11/22/24 13:36 Freq: NEEDED Status: Active Protocol: Document 11/22/24 13:37 [facility] (Rec: 11/22/24 13:48 [facility] [id number]) PT-Transfer Assessment Sit to and From Stand Sit to and from Moderate Assistance Stand Equipment Transfer Assistive Gait Belt,Front Wheeled Walker Device Orthotic/Prosthetic No Devices or Brace: Transfer Ability Level of Assist Moderate Assistance Comments Mobility Comments cues for hand placement Gait Assessment Gait Gait Assistance Moderate Assistance,2 Person Assist Required: Assistive Devices Assistive Device Gait Belt,Front Wheeled Walker Gait Deviations General Gait Pattern Decreased Stride Length,Decreased Feet Clearance Factors Limiting Gait Function Factors Limiting Decreased Strength,Respiratory Distress Gait Function PT-Balance Assessment Sitting Balance and Reactions Static Sitting Fair Balance Ability Dynamic Sitting Fair Balance Ability Standing Balance and Reactions Static Standing Poor Balance Ability Dynamic Standing Poor Balance Ability M5 PT-IP Objective Assessments Start: 11/22/24 13:36 Freq: NEEDED Status: Active Protocol: Document 11/22/24 13:37 [facility] (Rec: 11/22/24 13:48 [facility] [id number]) Orientation Orientation/Cognition Level of Alertness Alert Orientation Name,Age,Birthday,Month,Situation Safety Awareness Decreased Safety Awareness Memory Description No Deficits Noted Gross Range of Motion Upper Extremity ROM Assessment Within Functional Limits Lower Extremity ROM Assessment Within Functional Limits Strength Upper Extremity Strength Assessment Within Functional Limits Lower Extremity Strength Assessment Left Impaired Hip 3+ Knee 4 Ankle 4- Sensation Assessment Sensation Gross Sensation WNL M6 PT-IP Treatment Start: 11/22/24 13:36 Freq: NEEDED Status: Active Protocol: Document 11/22/24 13:37 [facility] (Rec: 11/22/24 13:48 [facility] [id number]) Physical Therapy Treatment Other Treatments Other Treatment FWW lowered by one notch, has Up Walker at home Performed M7 PT-IP Assessment and Plan Start: 11/22/24 13:36 Freq: NEEDED Status: Active Protocol: Document 11/22/24 13:37 [facility] (Rec: 11/22/24 13:48 [facility] [id number]) PT Summary Assessment and Plan Potential Rehabilitation Fair Potential Summary Impairments Bed Mobility,Transfers,Gait,Activity Tolerance Assessment Summary Patient presents to PT with decreased activity tolerance and generalized weakness. Is on O2 per NC, 100% at rest, decreased to 94% with gait. Patient was in chair and didn't want to go back to bed after PT so bed mobility not tested; per OT required max assist with HOB elevated. Transferred sit to stand with mod assist of 1, CGA of 1. Ambulated 5ft fwd with FWW with Mod assist, GLASS DESIGNER assist for lines and bringing chair behind. Pt. fatigued and needed to sit. O2 inc to 98% in 2 min. Feel patient will need SNF rehab at discharge from hospital and he and are in agreement. Goals Bed Mobility Goal Contact Guard Assistance Transfer Goal Contact Guard Assistance Gait Goal Contact Guard Assistance Gait Distance 125 Days to Meet Goals 10 Frequency of Treatment Frequency Of Once a Day Treatment Treatment Plan Physical Therapy Bed Mobility Training,Transfer Training,Gait Training, Treatment Plan Therapeutic Exercise,Balance Retraining,Discharge Planning,Neuromuscular Re-ed Weight Bearing Status Weight Bearing Full Weight Bearing Status Recommendations To Nursing Amount of Assist 2 Person Assist Needed Discharge Recommendations PT Discharge SNF Rehab Recommendations Transportation Needs Wheelchair/Cabulance at Discharge
[2024-11-22] MEDS: CARBIDOPA-LEVODOPA 25/100 TABLET 3 EACH PO (14:21)
[2024-11-22] MEDS: AZITHROMYCIN 500 MG in DEXTROSE 5% IN WATER 250 ML 250 MG IV (20:23)
[2024-11-22] MEDS: INSULIN GLARGINE 100 UNIT/ML 3ML PEN 60 UNIT SUBCUT (21:57)
[2024-11-23] VITALS (64 sets, daily range): BP systolic 135–201; BP diastolic 67–89; PULSE 66–81; RESP 16–50; TEMP 36.6–36.9; O2SAT 93–99
[2024-11-23 05:17] LABS: Hematocrit 33.9 % (41-53); Hemoglobin 11.5 g/dL (13.5-17.5); Mean Corpuscular HGB Conc 33.9 % (30-36); Mean Corpuscular Hemoglobin 29.4 PG (26-34); Mean Corpuscular Volume 86.7 fL (80-100); Platelet Count 221 X10^3/uL (150-400)
[2024-11-23 05:30] LABS: Blood Urea Nitrogen 23 mg/dL (9-20); Calcium 8.5 mg/dL (8.4-10.2); Carbon Dioxide 20 mmol/L (22-32); Chloride 108 mmol/L (98-107); Estimated Glomerular Filt Rate > 60 mL/min (>60); Glucose 188 mg/dL (70-99); HEMOLYSIS < 15 (0-50); Potassium 3.6 mmol/L (3.4-5.1); Sodium 136 mmol/L (137-145)
[2024-11-23] MEDS: ENTACAPONE 200 MG TABLET 100 MG PO ×4 (06:13→22:13)
[2024-11-23] MEDS: PANTOPRAZOLE DR 20 MG TABLET PO (06:13)
[2024-11-23] MEDS: CARBIDOPA-LEVODOPA 25/100 TABLET 3 EACH PO ×2 (06:14→14:13)
[2024-11-23 06:15] LABS: MRSA (Nasal) PCR NOT DETECTED (Not Detect)
[2024-11-23] MEDS: ENOXAPARIN 40 MG/0.4 ML SYRINGE SUBCUT (09:13)
[2024-11-23] MEDS: POTASSIUM CHLORIDE 10 MEQ TAB PO ×2 (09:13→21:04)
[2024-11-23] MEDS: LATANOPROST 0.005% OPHTH 2.5 ML 1 DROPS EYE-BOTH (09:13)
[2024-11-23] MEDS: GABAPENTIN 100 MG CAPSULE PO ×3 (09:15→21:04)
[2024-11-23] MEDS: LOSARTAN 50 MG TABLET PO ×2 (09:15→21:04)
[2024-11-23] MEDS: FINASTERIDE 5 MG TABLET PO (09:16)
[2024-11-23] MEDS: ATORVASTATIN 20 MG TABLET 10 MG PO (09:16)
[2024-11-23] MEDS: ASPIRIN EC 81 MG TABLET PO (09:16)
[2024-11-23] MEDS: TIMOLOL 0.25% OPHTH 1 DROPS EYE-BOTH (09:24)
[2024-11-23] MEDS: ALBUTEROL/IPRATROPIUM 3 ML AMPUL INH ×3 (09:35→17:38)
[2024-11-23] MEDS: CARBIDOPA-LEVODOPA 25/100 TABLET 2.5 EACH PO ×3 (10:14→22:14)
[2024-11-23] MEDS: DOCUSATE 100 MG CAPSULE PO ×2 (11:44→21:05)
--- NOTE | 2024-11-23 11:55 | PT.IPTN ---
Current Diagnoses Type 2 diabetes mellitus with other circulatory complications (11/21/24) Parkinson's disease with dyskinesia, without mention of fluctuations (11/21/24) Essential (primary) hypertension (11/21/24) Chronic obstructive pulmonary disease with (acute) exacerbation (11/21/24) Urinary tract infection, site not specified (11/21/24) local company intermodal truck driver (current) use of insulin (11/21/24) Personal history of other specified conditions (11/21/24) Physical Therapy Treatment Note M2 PT-IP Current Condition Start: 11/22/24 13:36 Freq: NEEDED Status: Active Protocol: Document 11/22/24 13:37 SAK (Rec: 11/22/24 13:48 SAK [id number]) Physical Therapy Current Condition Current Condition Evaluation Date 11/22/24 Treatment Diagnosis weakness M3 PT-IP Subjective Start: 11/22/24 13:36 Freq: NEEDED Status: Active Protocol: Document 11/23/24 11:55 AB (Rec: 11/23/24 15:04 AB [id number]) Subjective Physical Therapy Visit Type Type Treatment Note Visit Start Time 11:55 Visit Stop Time 12:25 Number of ASSISTANT ATTORNEY GENERAL Visits 0 Physical Therapy Visit Comments Patient Comments agreeable to do PT M4 PT-IP Mobility and Gait Start: 11/22/24 13:36 Freq: NEEDED Status: Active Protocol: Document 11/23/24 11:55 AB (Rec: 11/23/24 15:04 AB [id number]) PT-Transfer Assessment Sit to and From Stand Sit to and from Moderate Assistance,1 Person Assistance,Use of Upper Stand Extremities Equipment Transfer Assistive Gait Belt,Front Wheeled Walker Device Orthotic/Prosthetic No Devices or Brace: Comments Mobility Comments pt sitting on the chair and agreeable to do PT. spouse in room with pt. sit to stand from the chair mod A and cues. pt presents with increase retrolean. cued to correct. pt ambulated in room using FWW mod a and max cues ~ 30 ft. pt sat on the chair. spouse requesting for pt to have brief on. sit to stand from the chair mod A and needing assist for brief management. pt agreed to ambulate again and completed 30 ft using fWW mod A and cues. pt sat back on chair. OT came in and took over pt's care. Gait Assessment Gait Gait Assistance Moderate Assistance,1 Person Assist Required: Distance (Feet) 30 Able to Maintain Yes Weight Bearing Status During Gait Assistive Devices Assistive Device Gait Belt,Front Wheeled Walker Orthotic/Prosthetic No Devices or Brace: Gait Deviations General Gait Pattern Ataxic,Decreased Stride Length,Decreased Feet Clearance Factors Limiting Gait Function Factors Limiting Decreased Activity Tolerance,Decreased Strength, Gait Function Difficulty Following Directions,Incoordination,Limited Range of Motion,Pain,Poor Balance,Poor Safety Awareness M5 PT-IP Objective Assessments Start: 11/22/24 13:36 Freq: NEEDED Status: Active Protocol: Document 11/22/24 13:37 SAK (Rec: 11/22/24 13:48 SAK [id number]) Orientation Orientation/Cognition Level of Alertness Alert Orientation Name,Age,Birthday,Month,Situation Safety Awareness Decreased Safety Awareness Memory Description No Deficits Noted Gross Range of Motion Upper Extremity ROM Assessment Within Functional Limits Lower Extremity ROM Assessment Within Functional Limits Strength Upper Extremity Strength Assessment Within Functional Limits Lower Extremity Strength Assessment Left Impaired Hip 3+ Knee 4 Ankle 4- Sensation Assessment Sensation Gross Sensation WNL M6 PT-IP Treatment Start: 11/22/24 13:36 Freq: NEEDED Status: Active Protocol: Document 11/23/24 11:55 AB (Rec: 11/23/24 15:04 AB [id number]) Physical Therapy Treatment Education Education Provided Safety M7 PT-IP Assessment and Plan Start: 11/22/24 13:36 Freq: NEEDED Status: Active Protocol: Document 11/23/24 11:55 AB (Rec: 11/23/24 15:04 AB [id number]) PT Summary Assessment and Plan Potential Rehabilitation Good Potential Summary Impairments Pain,ROM,Strength,Balance,Coordination,Sensation,Tone, Cognition,Bed Mobility,Transfers,Gait,Activity Tolerance Progress Towards Slow Progress due to Medical Issues,Slow Progress due Goals to Activity Tolerance,Slow Progress - Other Assessment Summary pt is improving with mobility and able to ambulate using FWW ~ 30 ft mod A and max cues for safety. d/c plan depending on progress. SNF vs home with 24/7 assist and HHPT. will continue to assess. Goals Bed Mobility Goal Contact Guard Assistance Transfer Goal Contact Guard Assistance,Front Wheeled Walker Gait Goal Contact Guard Assistance,Front Wheel Walker Gait Distance 125 Other Goals improve transfers and ambulation using up walker 125 ft SBA Days to Meet Goals 10 Frequency of Treatment Frequency Of Once a Day Treatment Treatment Plan Physical Therapy Bed Mobility Training,Transfer Training,Gait Training, Treatment Plan Therapeutic Exercise,Balance Retraining,Discharge Planning,Neuromuscular Re-ed Precautions Other Precautions falls Recommendations To Nursing Amount of Assist 1 Person Assist Needed Discharge Recommendations PT Discharge Home with 30/08 Assist Available,Home Health,SNF Rehab, Recommendations Home vs SNF Transportation Needs Private Vehicle,Wheelchair/Cabulance at Discharge - PT assist 1
--- NOTE | 2024-11-23 12:38 | OT.IP.TRT ---
Current Diagnoses Type 2 diabetes mellitus with other circulatory complications (11/21/24) Parkinson's disease with dyskinesia, without mention of fluctuations (11/21/24) Essential (primary) hypertension (11/21/24) Chronic obstructive pulmonary disease with (acute) exacerbation (11/21/24) Urinary tract infection, site not specified (11/21/24) ad terminal makeup operator (current) use of insulin (11/21/24) Personal history of other specified conditions (11/21/24) Occupational Therapy Treatment Note M2 OT-IP Current Condition Start: 11/22/24 12:15 Freq: Status: Active Protocol: Document 11/22/24 12:15 [facility] (Rec: 11/22/24 12:32 [facility] Desktop) Occupational Therapy Current Condition Current Condition Evaluation Date 11/22/24 Treatment Diagnosis UTI, COPD exacerbation Diagnosis Onset Date 11/21/24 M3 OT- IP Subjective and Pain Start: 11/22/24 12:15 Freq: Status: Active Protocol: Document 11/23/24 12:41 [facility] (Rec: 11/23/24 13:16 [facility] Desktop) OT- Subjective Occupational Therapy Visit Type Visit Start Time 12:17 Visit Stop Time 12:40 Occupational Therapy Visit Comments Patient Comments Pt just finishing with PT when OT came in to see pt. Patient/Caregiver TO go home, but open to skilled rehab if needed. Goals OT Pain Assessment Pain When Pain Assessed At Rest Pain Present Pain Present Denied Pain M4 OT- IP ADL's Start: 11/22/24 12:15 Freq: Status: Active Protocol: Document 11/22/24 12:15 [facility] (Rec: 11/22/24 12:32 [facility] Desktop) OT DAV-[place] Comments OT Self-Feeding Not at meal time. Comments OT ADL-Grooming General Evaluation Areas Needing Retrieving/Set-up of Grooming Items Assistance Comments OT Grooming Comments Pt needing set-up assist while seated. OT ADL-Oral Care General Eval Oral Care Ability Standby Assistance Areas of Assistance Retrieving/Set-Up of Items OT ADL-Dressing General Eval Lower Body Dressing Total Assistance Ability OT ADL-Toileting General Evaluation Toileting Ability Total Assistance Areas Needing Empty Catheter or Colostomy Assistance Comments OT Toileting [place] in place. Comments OT ADL-Bathing Comments OT Bathing Comments Not performed. M5 OT- IP IADL's Start: 11/22/24 12:15 Freq: Status: Active Protocol: Document 11/22/24 12:15 [facility] (Rec: 11/22/24 12:32 [facility] Desktop) OT-Instrumental Activities of Daily Living Home Safety Awareness Awareness of Need Good Awareness for Assistance at Home Medication Management Medication Caregiver Administers Management Money Management Money Management Pt states still does the bills, however his Comments supervises him. Meal Preparation Meal Preparation Caregiver Provides Assist Fringe Weaver Fringe Weaver Caregiver Provides Assist M6 OT- IP Functional Cognition Start: 11/22/24 12:15 Freq: Status: Active Protocol: Document 11/22/24 12:15 [facility] (Rec: 11/22/24 12:32 [facility] Desktop) Cognitive Factors Limiting Selfcare Function Cognitive Ability Level of Alertness Alert Patient Orientation Name,Age,Birthday,Month,Date,Year,Day of Week,Place, Situation Attention Span Capable of Focused Attention,Capable of Sustained Ability Attention Ability to Follow Able to Follow One Step Commands Commands Cognitive Comments Cognitive Assessment Pt able to follow commands for ADL and mobility needs. Comments OT- Vision and Hearing OT- Hearing Assessment OT- Hearing WFL Assessment OT- Vision Assessment Visual Acuity Glasses All The Time M7 OT- IP Mobility and Balance Start: 11/22/24 12:15 Freq: Status: Active Protocol: Document 11/23/24 12:41 [facility] (Rec: 11/23/24 13:16 [facility] Desktop) OT-Transfer Assessment Sit to and From Stand Sit to and from Minimal Assistance,Moderate Assistance,1 Person Stand Assistance Transfers Transfer Ability Minimal Assistance,Moderate Assistance,1 Person Assistance Technique Transfer Destination Chair Transfer Technique Stand Step Pivot Devices Transfer Assistive Gait Belt,Front Wheeled Walker Devices Comments Mobility Comments Able to educated pt's how to efren/doff the gait belt. Pt's able to assist pt to stand and walk in the room with FWW. Pt's able to give good cues for pt to slow down. Also having to cue pt not to twist his feet/legs and to move the fww prior to turning. Pt' s feels that he is 70% of his baseline for mobility at this time. OT- Balance Assessment Sitting Balance and Reactions Static Sitting Good Balance Ability Dynamic Sitting Fair Balance Ability Standing Balance and Reactions Static Standing Poor Balance Ability Dynamic Standing Poor Balance Ability Comments Other Balance Tests/ Re-educated pt on sitting posture and to be sure to Deviations/Treatment bend at his waist to help keep his weight over his feet : . M8 OT- IP Objective Assessments Start: 11/22/24 12:15 Freq: Status: Active Protocol: Document 11/22/24 12:15 [facility] (Rec: 11/22/24 12:32 [facility] Desktop) OT Gross Range of Motion Upper Extremity Range of Motion Assessment Bilaterally Impaired ROM Impairments shoulder flexion RUE 0-45, LUE 0-50 OT Strength Upper Extremity Strength Assessment Bilaterally Impaired Comments Strength Comments BUE shoulders 3-/5, elbow to distal 4+/5 OT- Coordination Assessment Upper Extremity Finger to Nose Test Within Functional Limits OT-Muscle Tone Assessment Comments Muscle Tone Comments Pt has tremors. M9 OT- IP Assessment and Plan Start: 11/22/24 12:15 Freq: Status: Active Protocol: Document 11/23/24 12:41 [facility] (Rec: 11/23/24 13:16 [facility] Desktop) OT Summary Assessment and Plan Potential Rehabilitation Good Potential Analytic Complexity Moderate at Evaluation Summary OT Impairments Pain,Strength,Balance,Coordination,Functional Mobility, Self-Feeding,Grooming,Dressing,Toileting,Bathing,Toilet Transfers,Shower Transfers,Activity Tolerance Progress Towards Progressing Toward Goals Goals Assessment Summary Pt doing much better today and pt's able to assist pt in the room with good safety. Pt still a bit unsteady on his feet and would benefit from skilled rehab to work on being more consistent/steady on his feet and to increased overall safety awareness. Goals Self-Feeding Goal Standby Assistance Grooming Goal Standby Assistance Dressing Goal Moderate Assistance Toileting Goal Moderate Assistance Bathing Goal Moderate Assistance Toilet Transfer Goal Contact Guard Assistance Shower Transfer Goal Minimal Assistance Days to Meet Goals 15 Frequency of Treatment Other frequency 5x/week Treatment Plan OT Treatment Plan ADL Training,Functional Mobility,Patient/Family Education,Discharge Planning Other Treatment Pt to be able to walk to the toilet with KRISTEN x1 and Recommendations and MOD for hygiene needs. Next Treatment Focus Discharge Recommendations OT Discharge SNF Rehab Recommendations Other Discharge If pt improves more home with 24/ assist and home Recommendations health. Transportation Needs Wheelchair/Cabulance at Discharge
--- NOTE | 2024-11-23 12:54 | PC.NURSE ---
1100 BROUGHT HOME METHANAMINE BOTTLE BUT STATES SHE DOES NOT HAVE RENACIDIN OR SELEGILINE AT HOME. METHANAMINE TUBED TO PHARMACY.
--- NOTE | 2024-11-23 15:31 | PM.PN.1 ---
Subjective Subjective Date Patient Seen: 11/23/24 Interval history: Summary: Patient presented with confusion and concern for UTI. He decompensated with extreme bronchospasm and acute respiratory distress. He was placed on BiPAP at about 1600 on November 21. This is relatively consistent with previous presentations. Precedex was used in addition to lorazepam and morphine for agitation and air hunger. He did well overnight. ED course: CTA shows no central PE, evaluation limited secondary to poor contrast opacification motion artifact no acute cardiopulmonary process. Labs show normal white count, hemoglobin of 12 consistent with priors, platelets are 236. INR is 1. Sodium is 130, CO2 17, potassium chloride normal with normal BUN creatinine, glucose of 290 initial lactate is 5.9 repeat is 4.1 but patient did not receive any fluids. Troponin was 0.015 with a repeat of 0.012. Patient denies any chest pain or pressure. Patient has a COVID/influenza/RSV negative. UA shows nitrite positive urine 2+ leuks 5-10 WBCs moderate bacteria. Started antibiotics, steroid, bronchodilator and admitted to medicine with COPD exacerbation and UTI. 11/22: He was on BiPAP overnight, has been off much of the day in his doing much better on oxygen nasal cannula. He was still mildly short of breath, but denies cough, or pain. He was going to go back on BiPAP after dinner in his comfortable with this plan. 11/23: He is up in his chair, and has been trying to use the commode. It is difficult to pin him down on whether he is feeling close to baseline or back to baseline yet. He is chronically ill and does use a walker at home but only has his elderly to care for him. She is present during my visit and eventually I am able to get her to commit that he appears significantly weaker than baseline and she would not be able to care for him yet. She is hoping that this will clear by tomorrow but it is beginning to look like he may need group home facility rehab? PT just saw him and felt that he would be able to return home so the weakness I am seeing could be a result of feeling fatigued from PT/OT? The hemoglobin is 11.5. The BNP is normal with a creatinine of 0.77. He will be receiving lactulose for persisting constipation. O: NAD, alert and oriented. Soft speech. Chronically ill in appearance. Sitting in bedside recliner. Lungs are clear to auscultation bilaterally Heart is regular, no murmur gallop or rub. Abdomen is soft, non distended. Extremities are free of edema. Churchill catheter is present. IMAGING: Chest CTA: No central pulmonary embolism. Evaluation is limited secondary to poor contrast opacification and motion artifact. No acute cardiopulmonary process. CXR: No acute cardiopulmonary abnormality is seen. Imaging reviewed with presley pattens. A/P: 1. COPD exacerbation, improving. 2. Acute hypoxic and hypercapnic respiratory failure, active. 3. Urinary tract infection (associated with chronic indwelling Churchill catheter colonization), active. 4. Significant lactic acidosis, resolved (1.4). 5. Hyponatremia, likely hypovolemic. Improving. 6. Chronic urinary retention with chronic indwelling Churchill. Active. 7. Parkinson's disease, active. 8. DM 2, insulin dependent, active. 9. Hypertension, stable. PLAN: -BiPAP support as needed, will use overnight PRN. -weaning O2 as able. -continue corticosteroids and bronchodilators. -continue antibiotics. -urine culture with Klebsiella and E coli (which is resistant to ceftriaxone). Consider adding Zosyn/ertapenem but no ongoing UTI or sepsis symptoms (in the context of catheter colonization) so could likely stop the ABX treatment tomorrow. -added lactulose as needed for persistent constipation. HEMALATHA: 11/24 (per PT 11/23 note) -lives at home with his . Exam Vital Signs (past 8 hours): - 11/23/24 08:00 11/23/24 08:00 11/23/24 08:00 Temperature 98.2 F Pulse Rate 72 Respiratory Rate 33 H Blood Pressure 175/84 H Pulse Oximetry 95 Oxygen Delivery Method 11/23/24 08:30 11/23/24 09:00 11/23/24 09:01 Temperature Pulse Rate 68 72 Respiratory Rate 18 31 H Blood Pressure 162/81 H Pulse Oximetry 96 96 Oxygen Delivery Method 11/23/24 09:01 11/23/24 09:30 11/23/24 09:30 Temperature Pulse Rate 73 70 Respiratory Rate 27 H 23 Blood Pressure Pulse Oximetry 96 96 Oxygen Delivery Method Room Air 11/23/24 09:35 11/23/24 10:00 11/23/24 10:00 Temperature Pulse Rate 69 69 Respiratory Rate 18 22 Blood Pressure 181/85 H Pulse Oximetry 96 97 Oxygen Delivery Method Room Air 11/23/24 10:19 11/23/24 10:19 11/23/24 10:42 Temperature Pulse Rate 68 68 Respiratory Rate 22 19 Blood Pressure 173/80 H Pulse Oximetry 98 Oxygen Delivery Method 11/23/24 11:00 11/23/24 11:01 11/23/24 11:01 Temperature Pulse Rate 68 68 Respiratory Rate 21 21 Blood Pressure 201/82 H Pulse Oximetry 98 97 Oxygen Delivery Method 11/23/24 11:24 11/23/24 11:24 11/23/24 11:30 Temperature Pulse Rate 67 67 Respiratory Rate 31 H 25 H Blood Pressure 168/89 H Pulse Oximetry 97 97 Oxygen Delivery Method 11/23/24 12:00 11/23/24 12:00 11/23/24 12:00 Temperature 97.9 F Pulse Rate 66 Respiratory Rate 20 Blood Pressure 185/86 H Pulse Oximetry 98 Oxygen Delivery Method 11/23/24 12:00 11/23/24 12:08 11/23/24 12:08 Temperature Pulse Rate 66 Respiratory Rate 40 H Blood Pressure 170/79 H Pulse Oximetry 96 Oxygen Delivery Method Room Air 11/23/24 12:30 11/23/24 13:00 11/23/24 13:01 Temperature Pulse Rate 68 73 Respiratory Rate 21 32 H Blood Pressure 151/70 H Pulse Oximetry 97 98 Oxygen Delivery Method 11/23/24 13:01 11/23/24 13:22 11/23/24 13:51 Temperature Pulse Rate 72 72 74 Respiratory Rate 28 H 16 21 Blood Pressure Pulse Oximetry 98 98 98 Oxygen Delivery Method Room Air Fraction of Inspired Oxygen 24 SaO2/FiO2 Ratio 416 Oxygen Delivery Method Room Air Oxygen Flow Rate 0 Objective Labs 11/23/24 04:32 11/23/24 04:32 Labs: Laboratory Results - last 24 hr 11/22/24 11/22/24 11/23/24 17:07 21:52 04:30 WBC RBC Hgb Hct MCV MCH MCHC RDW Plt Count Sodium Potassium Chloride Carbon Dioxide BUN Creatinine Estimated GFR BUN/Creatinine Ratio Glucose POC Whole Bld Glucose 315 H 348 H Calcium Nasal Screen MRSA (PCR) Not detected 11/23/24 11/23/24 11/23/24 04:32 08:18 11:44 WBC 10.5 RBC 3.91 L Hgb 11.5 L Hct 33.9 L MCV 86.7 MCH 29.4 MCHC 33.9 RDW 15.2 H Plt Count 221 Sodium 136 L Potassium 3.6 Chloride 108 H Carbon Dioxide 20 L BUN 23 H Creatinine 0.77 Estimated GFR > 60 BUN/Creatinine Ratio 29.9 H Glucose 188 H D POC Whole Bld Glucose 118 H D 102 H Calcium 8.5 Nasal Screen MRSA (PCR) PFSH Medical History (Updated 11/21/24 @ 06:19 by Abel Dela Cruz MD) Acute on chronic urinary retention Urinary retention COPD exacerbation History of urinary retention Hyperlipidemia History of nephrolithiasis Left nephrolithiasis Urinary retention Recurrent UTI History of prostate cancer Acne Shoulder pain Ankle pain Measles Chicken pox Prostate cancer (~2010) Anemia Benign prostatic hyperplasia GERD (gastroesophageal reflux disease) Hypertension Type 2 diabetes mellitus Parkinson's disease Congestive heart failure Surgical History S/P deep brain stimulator placement (11/2019) History of prostate biopsy Anesthesia History of knee surgery Kidney stones Family History Father Stroke Hypertension Bacterial UTI Mother Cancer Sister Hypertension Aunt Diabetes mellitus Uncle Kidney stones Social History marital status: number of children: 3 household members: spouse and children Smoking Status: Former smoker alcohol intake: never Type(s) of exercise: walking frequency: 1-2 times per week Assessment & Plan Time-Based Coding :: [TOTAL MINUTES] spent with patient and on the chart (including review of chart, obtaining history, exam, reviewing outside data, placing orders, documenting exam and treatment plan, and counseling patient) on [DATE].
--- NOTE | 2024-11-23 17:15 | CM.DPNOTE ---
DCP note MSWS reviewed EMR PT/OT rec SNF. MSWS spoke with pt in room. pt refusing SNF. wants to dc home with HH again. [facility]. CM team to update [facility]. need to send FS/H&P/therapy notes. f2f/order needed. will continue to follow closely for DCP Coordination RENATE Romo
[2024-11-23] MEDS: LACTULOSE 20 GM/30 ML SOLUTION PO (17:23)
[2024-11-23] MEDS: INSULIN LISPRO 100 UNIT/ML 3ML VIAL SUBCUT ×2 (17:23→21:06)
[2024-11-23] MEDS: METHENAMINE HIPPURATE 1 GM 1 EACH PO (21:05)
[2024-11-23] MEDS: INSULIN GLARGINE 100 UNIT/ML 3ML PEN 60 UNIT SUBCUT (21:06)
[2024-11-24] VITALS (15 sets, daily range): BP systolic 155–183; BP diastolic 83–85; PULSE 62–78; RESP 16–33; TEMP 36.3; O2SAT 95–98
[2024-11-24] MEDS: ALBUTEROL/IPRATROPIUM 3 ML AMPUL INH ×2 (03:48→07:59)
[2024-11-24 05:00] LABS: Hematocrit 37.7 % (41-53); Hemoglobin 12.8 g/dL (13.5-17.5); Mean Corpuscular HGB Conc 34.1 % (30-36); Mean Corpuscular Hemoglobin 29.4 PG (26-34); Mean Corpuscular Volume 86.2 fL (80-100); Platelet Count 223 X10^3/uL (150-400)
[2024-11-24 05:18] LABS: Blood Urea Nitrogen 19 mg/dL (9-20); Calcium 8.6 mg/dL (8.4-10.2); Carbon Dioxide 20 mmol/L (22-32); Chloride 108 mmol/L (98-107); Estimated Glomerular Filt Rate > 60 mL/min (>60); Glucose 167 mg/dL (70-99); HEMOLYSIS < 15 (0-50); Potassium 3.7 mmol/L (3.4-5.1); Sodium 136 mmol/L (137-145)
[2024-11-24] MEDS: ENTACAPONE 200 MG TABLET 100 MG PO ×2 (06:13→11:00)
[2024-11-24] MEDS: PANTOPRAZOLE DR 20 MG TABLET PO (06:13)
[2024-11-24] MEDS: CARBIDOPA-LEVODOPA 25/100 TABLET 3 EACH PO (06:14)
[2024-11-24] MEDS: ENOXAPARIN 40 MG/0.4 ML SYRINGE SUBCUT (08:31)
[2024-11-24] MEDS: ASPIRIN EC 81 MG TABLET PO (08:33)
[2024-11-24] MEDS: POTASSIUM CHLORIDE 10 MEQ TAB PO (08:33)
[2024-11-24] MEDS: FINASTERIDE 5 MG TABLET PO (08:33)
[2024-11-24] MEDS: GABAPENTIN 100 MG CAPSULE PO (08:36)
[2024-11-24] MEDS: DOCUSATE 100 MG CAPSULE PO (08:36)
[2024-11-24] MEDS: LOSARTAN 50 MG TABLET PO (08:37)
[2024-11-24] MEDS: ATORVASTATIN 20 MG TABLET 10 MG PO (08:39)
[2024-11-24] MEDS: INSULIN LISPRO 100 UNIT/ML 3ML VIAL SUBCUT ×4 (08:41→12:24)
[2024-11-24] MEDS: TIMOLOL 0.25% OPHTH 1 DROPS EYE-BOTH (08:45)
[2024-11-24] MEDS: LATANOPROST 0.005% OPHTH 2.5 ML 1 DROPS EYE-BOTH (08:48)
[2024-11-24] MEDS: METHENAMINE HIPPURATE 1 GM 1 EACH PO (08:51)
[2024-11-24] MEDS: CARBIDOPA-LEVODOPA 25/100 TABLET 2.5 EACH PO (11:01)
--- NOTE | 2024-11-24 11:45 | PT.IPTN ---
Current Diagnoses Type 2 diabetes mellitus with other circulatory complications (11/21/24) Parkinson's disease with dyskinesia, without mention of fluctuations (11/21/24) Essential (primary) hypertension (11/21/24) Chronic obstructive pulmonary disease with (acute) exacerbation (11/21/24) Urinary tract infection, site not specified (11/21/24) intermediate accountant (current) use of insulin (11/21/24) Personal history of other specified conditions (11/21/24) Physical Therapy Treatment Note M2 PT-IP Current Condition Start: 11/22/24 13:36 Freq: NEEDED Status: Active Protocol: Document 11/22/24 13:37 SAK (Rec: 11/22/24 13:48 SAK [id number]) Physical Therapy Current Condition Current Condition Evaluation Date 11/22/24 Treatment Diagnosis weakness M3 PT-IP Subjective Start: 11/22/24 13:36 Freq: NEEDED Status: Active Protocol: Document 11/24/24 11:45 AB (Rec: 11/24/24 13:05 AB Desktop) Subjective Physical Therapy Visit Type Type Treatment Note Visit Start Time 11:45 Visit Stop Time 12:25 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 Visits 0 Physical Therapy Visit Comments Patient Comments agreeable to do PT M4 PT-IP Mobility and Gait Start: 11/22/24 13:36 Freq: NEEDED Status: Active Protocol: Document 11/24/24 11:45 AB (Rec: 11/24/24 13:05 AB Desktop) PT-Transfer Assessment Sit to and From Stand Sit to and from Moderate Assistance,1 Person Assistance,Use of Upper Stand Extremities Equipment Transfer Assistive Gait Belt,Front Wheeled Walker Device Orthotic/Prosthetic No Devices or Brace: Transfers Transfer Destination Bed,Chair Transfer Technique ambulated Transfer Ability Level of Assist Minimal Assistance,Moderate Assistance,1 Person Assistance,Use of Upper Extremities Comments Mobility Comments pt sitting on the chair and spouse in room. pt agreed to do PT. completed sit to stand mod A and cues and ambulated using FWW min to mod A ~ 15 ft. pt sat on EOB . caregiver training conducted. spouse was able to put safety belt on pt and assisted pt with sit to stand and ambulation back to chair using FWW. pt agreed to do steps. completed up/down platform step holding on to bed foot board as rail requiring mod A and cues. pt ambulated back to chair using fWW min to mod A and cues. positioned pt on the chair. call light and table placed within reach. Gait Assessment Gait Gait Assistance Minimum Assistance,Moderate Assistance Required: Distance (Feet) 15 Able to Maintain Yes Weight Bearing Status During Gait Assistive Devices Assistive Device Gait Belt,Front Wheeled Walker Orthotic/Prosthetic No Devices or Brace: Gait Deviations General Gait Pattern Antalgic,Ataxic,Decreased Stride Length,Decreased Feet Clearance Factors Limiting Gait Function Factors Limiting Abnormal Tonal Influences,Decreased Activity Tolerance, Gait Function Decreased Strength,Incoordination,Limited Range of Motion,Poor Balance,Poor Safety Awareness Stair Climbing Assessment Evaluation Level of Assist On Moderate Assistance Stairs Devices Stair Climbing Left Railing Assistive Devices Technique/Endurance Stair Climbing Ascend and Descend Direction Stair Climbing Step to Step Technique Number of Steps 1 Climbed Stair Climbing Set # 1 Repetitions (reps) M5 PT-IP Objective Assessments Start: 11/22/24 13:36 Freq: NEEDED Status: Active Protocol: Document 11/22/24 13:37 SAK (Rec: 11/22/24 13:48 SAK [id number]) Orientation Orientation/Cognition Level of Alertness Alert Orientation Name,Age,Birthday,Month,Situation Safety Awareness Decreased Safety Awareness Memory Description No Deficits Noted Gross Range of Motion Upper Extremity ROM Assessment Within Functional Limits Lower Extremity ROM Assessment Within Functional Limits Strength Upper Extremity Strength Assessment Within Functional Limits Lower Extremity Strength Assessment Left Impaired Hip 3+ Knee 4 Ankle 4- Sensation Assessment Sensation Gross Sensation WNL M6 PT-IP Treatment Start: 11/22/24 13:36 Freq: NEEDED Status: Active Protocol: Document 11/24/24 11:45 AB (Rec: 11/24/24 13:05 AB Desktop) Physical Therapy Treatment Education Education Provided Safety M7 PT-IP Assessment and Plan Start: 11/22/24 13:36 Freq: NEEDED Status: Active Protocol: Document 11/24/24 11:45 AB (Rec: 11/24/24 13:05 AB Desktop) PT Summary Assessment and Plan Potential Rehabilitation Good Potential Summary Impairments Pain,ROM,Strength,Balance,Coordination,Sensation,Tone, Cognition,Bed Mobility,Transfers,Gait,Activity Tolerance Progress Towards Slow Progress due to Medical Issues,Slow Progress due Goals to Activity Tolerance,Slow Progress - Other Assessment Summary pt improving with mobility. caregiver training conducted and spouse was able to assist pt with mobility. pt will benefit from HHPT. Goals Bed Mobility Goal Contact Guard Assistance Transfer Goal Contact Guard Assistance,Front Wheeled Walker Gait Goal Contact Guard Assistance,Front Wheel Walker Gait Distance 125 Other Goals improve transfers and ambulation using up walker 125 ft SBA Days to Meet Goals 10 Frequency of Treatment Frequency Of Once a Day Treatment Treatment Plan Physical Therapy Bed Mobility Training,Transfer Training,Gait Training, Treatment Plan Therapeutic Exercise,Balance Retraining,Discharge Planning,Neuromuscular Re-ed Precautions Other Precautions falls Recommendations To Nursing Amount of Assist 1 Person Assist Needed Discharge Recommendations PT Discharge Home with 30/08 Assist Available,Home Health Recommendations Transportation Needs Private Vehicle,Wheelchair/Cabulance at Discharge - PT assist 1
--- NOTE | 2024-11-24 12:33 | P.DS_ITS ---
History of Present Illness History of Present Illness Date Patient Seen: 11/24/24 Time Patient Seen: 12:20 Chief complaint: resp. distress Narrative: 74-year-old gentleman history of Parkinson's disease, wheelchair-bound, prostate cancer in remission with indwelling Churchill catheter, recurrent UTIs, COPD, pacemaker, DM, HTN, anemia, HLD, presents with shortness of breath. CTA shows no central PE, evaluation limited secondary to poor contrast opacification motion artifact no acute cardiopulmonary process. Labs show normal white count, hemoglobin of 12 consistent with priors platelets are 236. INR is 1. I did sodium is 130, CO2 17 potassium chloride are normal with normal BUN creatinine, glucose of 290 initial lactate is 5.9 repeat is 4.1 but patient did not receive any fluids. Troponin was 0.015 with a repeat of 0.012. Patient denies any chest pain or pressure. Patient has a COVID/influenza/RSV negative UA shows nitrite positive urine 2+ leuks 5-10 WBCs moderate bacteria Started antibiotics, steroid, bronchodilator and admitted to medicine with COPD exacerbation and UTI. Discharge Providers Provider Date of admission: 11/21/24 01:34 Discharge Date: 11/24/24 Primary care physician: Ravindra Goldsmith DO Consults: 11/21/24 15:04 Consult to Pharmacy Routine Comment: large amount of home meds. Parkinsons meds 11/21/24 16:26 Consult to Cardio/Pulmonary Rehabilitation Routine Comment: Physician Instructions: Evaluate and treat 11/22/24 09:30 Consult to Occupational Therapy Evaluate & Treat Comment: Physician Instructions: Evaluate and treat Consult to Physical Therapy Evaluate & Treat Comment: Physician Instructions: Evaluate and Treat 11/22/24 22:39 Consult to Pharmacy Routine Comment: falls 11/24/24 12:29 Consult to Home Health Routine Comment: Reason For Exam: weakness Discharge provider: Flavio Campa MD Summary Hospital Course Discharge Diagnosis: 1. COPD exacerbation, improving. 2. Acute hypoxic and hypercapnic respiratory failure, active. 3. Urinary tract infection (associated with chronic indwelling Churchill catheter colonization), treated. 4. Significant lactic acidosis, resolved (1.4). 5. Hyponatremia, likely hypovolemic. 6. Chronic urinary retention with chronic indwelling Churchill. Active. 7. Parkinson's disease, active. 8. DM 2, insulin dependent, active. 9. Hypertension, stable. Hospital Course: The patient was admitted and treated with frequently administered bronchodilators, intravenous steroids, empiric antibiotics and BiPAP support in the ICU setting. He improved significantly over subsequent days and was able to wean off BiPAP and oxygen and transitioned to oral prednisone. He was treated with broad-spectrum antibiotics for possible urinary infection, culturing Klebsiella and E coli on 11/20/2024 from urine, however, demonstrated no signs or symptoms of infection, this was felt to likely represent colonization in the setting of a chronic indwelling Churchill catheter. He was able to get up and walk with physical therapy, and was feeling significantly better and interested in discharge home. No other issues arose. Status at Discharge Cognitive/behavioral status at discharge: oriented Functional status at discharge: uses cane/walker Overall status at discharge: patient is progressing back to baseline Time Spent with Patient Time spent: Less than 30 minutes Exam Vital Signs (past 8 hours): - 11/24/24 05:00 11/24/24 07:59 11/24/24 08:00 Temperature 97.4 F L Pulse Rate 67 71 78 Respiratory Rate 28 H 20 18 Blood Pressure 155/85 H Pulse Oximetry 98 95 95 Oxygen Delivery Method Room Air Oxygen Flow Rate 0 0 Fraction of Inspired Oxygen 21 Fraction of Inspired Oxygen 21 SaO2/FiO2 Ratio 452 Oxygen Delivery Method Room Air Oxygen Flow Rate 0 Narrative Exam Narrative: NAD, alert and oriented. Soft speech. Chronically ill in appearance. Sitting in bedside recliner. Lungs are clear to auscultation bilaterally Heart is regular, no murmur gallop or rub. Abdomen is soft, non distended. Extremities are free of edema. Churchill catheter is present. Objective Imaging *: Radiologist's impression: Chest CTA: No central pulmonary embolism. Evaluation is limited secondary to poor contrast opacification and motion artifact. No acute cardiopulmonary process. CXR: No acute cardiopulmonary abnormality is seen. Labs 11/24/24 04:35 11/24/24 04:35 Labs: Laboratory Results - last 24 hr 11/23/24 11/23/24 11/24/24 17:18 20:56 04:35 WBC 8.9 RBC 4.37 L Hgb 12.8 L Hct 37.7 L MCV 86.2 MCH 29.4 MCHC 34.1 RDW 15.1 H Plt Count 223 Sodium 136 L Potassium 3.7 Chloride 108 H Carbon Dioxide 20 L BUN 19 Creatinine 0.67 Estimated GFR > 60 BUN/Creatinine Ratio 28.4 H Glucose 167 H POC Whole Bld Glucose 259 H D 221 H Calcium 8.6 11/24/24 11/24/24 07:25 12:19 WBC RBC Hgb Hct MCV MCH MCHC RDW Plt Count Sodium Potassium Chloride Carbon Dioxide BUN Creatinine Estimated GFR BUN/Creatinine Ratio Glucose POC Whole Bld Glucose 153 H 163 H Calcium PFSH Medical History Acne Acute on chronic urinary retention Anemia Ankle pain Benign prostatic hyperplasia Chicken pox Congestive heart failure COPD exacerbation GERD (gastroesophageal reflux disease) History of nephrolithiasis History of prostate cancer History of urinary retention Hyperlipidemia Hypertension Left nephrolithiasis Measles Parkinson's disease Prostate cancer (~2010) Recurrent UTI Shoulder pain Type 2 diabetes mellitus Urinary retention Urinary retention Surgical History Anesthesia History of knee surgery History of prostate biopsy Kidney stones S/P deep brain stimulator placement (11/2019) Family History Father Stroke Hypertension Bacterial UTI Mother Cancer Sister Hypertension Aunt Diabetes mellitus Uncle Kidney stones Social History marital status: number of children: 3 household members: spouse and children Smoking Status: Former smoker alcohol intake: never Type(s) of exercise: walking frequency: 1-2 times per week Discharge Plan Discharge Plan Patient Disposition: Home Health Service Provider Discharge Comment: Followup with Dr. Goldsmith this week Discharge orders & Medications Prescriptions: New prednisone 10 mg tablet 10 mg PO DAILY Qty: 20 0RF Rx Instructions: administer with food or milk, take 4 tabs daily x 2 days, then 3 tabs daily x 2 days, then 2 tabs daily x 2 days, then 1 tab daily x 2 days Continued (DME) Comfort Touch Ult Thin Lancets 31 gauge misc See Rx Instructions .Route Qty: 100 2RF Rx Instructions: use to check blood sugars 1-2 times per day (DME) Blood Glucose Test Strip See Rx Instructions .Route Qty: 50 5RF Rx Instructions: use to check blood sugars 1-2 times per day (DME) blood-glucose meter Misc See Rx Instructions .Route Qty: 1 0RF Rx Instructions: use to check blood sugars 1-2 times per day metformin 850 mg tablet 850 mg PO TID Qty: 240 3RF ipratropium-albuterol 0.5 mg-3 mg(2.5 mg base)/3 mL solution for nebulization 3 ml inhalation Q6H PRN (Reason: shortness of breath or wheezing) Qty: 180 1RF omeprazole 20 mg capsule,delayed release(DR/EC) 20 mg PO DAILY Qty: 90 1RF losartan 50 mg tablet 50 mg PO BID Qty: 180 3RF gabapentin 100 mg capsule 100 mg PO 3XD Qty: 270 1RF potassium citrate 10 mEq (1,080 mg) tablet extended release 10 meq PO BID Qty: 180 1RF Renacidin 1,980.6 mg-59.4 mg-980.4mg/30mL solution 30 ml irrigation TID Qty: 900 3RF (DME) pen needle, diabetic [Reshma 2nd Gen Pen Needle] 32 gauge x 5/32 needle See Rx Instructions .ROUTE .COMPLEX Qty: 100 3RF Dose Instruction: Use to inject insulin two times daily Rx Instructions: Use to inject insulin two times daily finasteride 5 mg tablet 5 mg PO DAILY Qty: 90 3RF atorvastatin 10 mg tablet 10 mg PO DAILY Qty: 90 3RF potassium chloride 10 mEq tablet extended release 10 meq PO BID temazepam 15 mg capsule 15 mg PO BEDTIME PRN (Reason: sleep) timolol maleate 0.25 % drops 1 drp EYE-BOTH DAILY albuterol sulfate 90 mcg/actuation HFA aerosol inhaler 1 puff inhalation Q4-6H Qty: 8.5 6RF albuterol sulfate 2.5 mg /3 mL (0.083 %) solution for nebulization 2.5 mg inhalation QID Qty: 75 2RF aspirin [Adult Low Dose Aspirin] 81 mg tablet,delayed release (DR/EC) 81 mg PO DAILY latanoprost 0.005 % drops 1 drp EYE-BOTH DAILY acetaminophen [Acetaminophen Extra Strength] 500 mg Tablet 500 mg PO Q6H PRN (Reason: Pain (Scale Score 4-6)) cranberry fruit 400 mg Capsule 400 mg PO DAILY Rx Instructions: administer with a meal carbidopa-levodopa 25-100 mg tablet See Rx Instructions .ROUTE .COMPLEX Patient Comments: extended release Rx Instructions: take 3 tabs at 0600, 2.5 tabs at 1000, 3 tabs at 1400, 2.5 tabs at 1800, 2.5 tabs at 2200 entacapone 200 mg Tablet 200 mg PO 5XD tamsulosin 0.4 mg capsule 0.4 mg PO DAILY amlodipine 5 mg tablet 10 mg PO DAILY insulin glargine [Lantus Solostar U-100 Insulin] 100 unit/mL (3 mL) Insulin Pen 60 unit SUBCUT BEDTIME methenamine hippurate 1 gram tablet 1 g PO BID Qty: 180 3RF Follow up/Referrals: Ravindra Goldsmith, [Primary Care Provider, [facility]] Visit Report/Discharge Packet Stand Alone Forms: Patient Portal/API, Stroke Signs & Symptoms Discharge Data Primary Care Provider: Ravindra Goldsmith Quality MIPS - Admit I confirm the patient?s Advance Care Plan is present, Code status is documented, Surrogate decision maker is in patient?s record [If Yes, STOP here]: Yes MIPS - Meds 'Current medications' to include all prescriptions, [id number] products, herbals, cannabis/cannabidiol products, and vitamin/mineral/dietary (nutritional) supplements. I have utilized all available resources to obtain, update, or review the patient?s current medications. [If Yes, STOP here]: Yes MIPS - DC The patient has a history of heart transplant or Left Ventricular Assist Device (LVAD). If yes, STOP here.: No The patient has current or prior documentation of left ventricular ejection fraction (LVEF) less than or equal to 40%, or moderate or severely depressed left ventricular systolic function.: No A. The patient was prescribed or already taking an Angiotensin-Converting Enzyme (ZULY) Inhibitor, or Angiotensin Receptor Odette (ARB).: Yes B. The patient was prescribed or already taking a beta-odette. [If Yes to Both A & B, STOP here]: No Patient not prescribed/taking ZULY or ARB, no reason given.: No Patient not prescribed/taking beta-odette, no reason given.: No PROFEE Charge Codes Discharge inpatient/observation: [id number]
--- NOTE | 2024-11-24 13:37 | PC.NURSE ---
Discharge Note: All IV lines removed from patient; chronic suprapubic cath remains in place; no change to urine. Home meds given back to patient spouse. Patient transferred off unit via wheel chair by sri RN; SBA with spouse at chair side. Discharge education completed, all questions answered.
== END 2024-11-24 13:39 | disposition home health service (06) | DRG 189 ==
LOC: ED 11-21 01:32 → AC 11-21 07:21 → ICU 11-21 16:38 → AC 11-24 11:26
PROVIDERS: Family Medicine; Hospitalist; Admitting Provider Internal Medicine; Emergency Provider Emergency Medicine; PCP Family Medicine; Referring Provider Emergency Medicine; Visit Provider Internal Medicine
DX: J96.01 Acute respiratory failure with hypoxia (principal); J44.1 Chronic obstructive pulmonary disease with (acute) exacerbation; T83.511A Infection and inflammatory reaction due to indwelling urethral catheter, initial encounter; N39.0 Urinary tract infection, site not specified; E87.1 Hypo-osmolality and hyponatremia; E87.20 Acidosis, unspecified; Z16.29 Resistance to other single specified antibiotic; I10 Essential (primary) hypertension; E11.9 Type 2 diabetes mellitus without complications; K21.9 Gastro-esophageal reflux disease without esophagitis; H40.9 Unspecified glaucoma; G20.B1 Parkinson's disease with dyskinesia, without mention of fluctuations; J96.02 Acute respiratory failure with hypercapnia; K59.00 Constipation, unspecified; B96.1 Klebsiella pneumoniae [K. pneumoniae] as the cause of diseases classified elsewhere; B96.20 Unspecified Escherichia coli [E. coli] as the cause of diseases classified elsewhere; E78.5 Hyperlipidemia, unspecified; N40.1 Benign prostatic hyperplasia with lower urinary tract symptoms; R33.9 Retention of urine, unspecified; Y73.1 Therapeutic (nonsurgical) and rehabilitative gastroenterology and urology devices associated with adverse incidents; Z99.3 Dependence on wheelchair; Z85.46 Personal history of malignant neoplasm of prostate; Z95.0 Presence of cardiac pacemaker; Z87.891 Personal history of nicotine dependence; Z87.440 Personal history of urinary (tract) infections; Z79.4 Long term (current) use of insulin; Z79.84 Long term (current) use of oral hypoglycemic drugs; Z86.79 Personal history of other diseases of the circulatory system
CPT/HCPCS: 36415; 36600; 71045; 71275; 80048; 80053; 81001; 82805; 82962; 83605; 83880; 84484; 85025; 85027; 85610; 87040; 87077; 87086; 87186; 87637; 87797; 93005; 93010; 94640; 94660; 96361; 96365; 96367; 96372; 97116; 97162; 97166; 97530; 99284; J0696; J1650; J1815; J2060; J2272; J2919; J7030; J7050; J7060; J7613; Q9967

== ENCOUNTER 2024-12-15 19:36 | Inpatient (IN) | payer OTHER, MEDICARE, SELFPAY ==
[2024-11-21 14:43] VITALS: BMI 33.9
[2024-11-22 08:30] VITALS: PULSE 71; RESP 21; O2SAT 96
[2024-12-15] VITALS (11 sets, daily range): BP systolic 118–157; BP diastolic 58–85; PULSE 83–95; RESP 21–36; TEMP 36.8–36.9; O2SAT 88–100; BMI 40.0
--- NOTE | 2024-12-15 19:44 | ED.SOB ---
HPI - SOB/Dyspnea General Chief Complaint: Shortness of Breath/Dyspnea Stated Complaint: SOB Time Seen by Provider: 12/15/24 19:41 History of Present Illness HPI Narrative: 74-year-old male with a history of Parkinsons, COPD, diabetes on insulin presents with more shortness of breath at home and comes in via EMS. He is currently on a non-rebreather mask and saturating at 99%. Related Data Home Medications ?Medication ?Instructions ?Recorded ?Confirmed latanoprost 0.005 % eye drops 1 drp EYE-BOTH DAILY 06/02/22 12/14/24 aspirin 81 mg tablet,delayed 81 mg PO DAILY 10/21/22 12/14/24 release (Adult Low Dose Aspirin) acetaminophen 500 mg tablet 500 mg PO Q6H PRN Pain (Scale 04/03/23 12/14/24 (Acetaminophen Extra Strength) Score 4-6) carbidopa 25 mg-levodopa 100 mg See Rx Instructions .Route .COMPLEX 04/03/23 12/14/24 tablet cranberry fruit 400 mg capsule 400 mg PO DAILY 04/03/23 12/14/24 entacapone 200 mg tablet 200 mg PO 5XD 05/18/23 12/14/24 potassium chloride 10 mEq 10 meq PO BID 05/25/24 12/14/24 tablet,extended release temazepam 15 mg capsule 15 mg PO BEDTIME PRN sleep 05/25/24 12/14/24 timolol maleate 0.25 % eye drops 1 drp EYE-BOTH DAILY 05/25/24 12/14/24 amlodipine 5 mg tablet 10 mg PO DAILY 11/21/24 12/14/24 tamsulosin 0.4 mg capsule 0.4 mg PO DAILY 11/21/24 12/14/24 insulin glargine 100 unit/mL (3 125 unit SUBCUT BEDTIME 12/14/24 12/14/24 mL) subcutaneous pen (Lantus Solostar U-100 Insulin) Previous Rx's ?Medication ?Instructions ?Recorded blood sugar diagnostic (Blood #50 ea 02/16/24 Glucose Test strips) blood-glucose meter #1 ea 02/16/24 lancets 31 gauge (Comfort Touch #100 ea 02/16/24 Ultra Thin Lancets) methenamine hippurate 1 gram tablet 1 g PO BID #180 tabs 04/27/24 metformin 850 mg tablet 850 mg PO TID #240 tabs 05/11/24 albuterol sulfate 90 mcg/actuation 1 puff inhalation Q4-6H #8.5 grams 05/25/24 aerosol inhaler ipratropium 0.5 mg-albuterol 3 mg 3 ml inhalation Q6H PRN shortness 07/16/24 (2.5 mg base)/3 mL nebulization of breath or wheezing #180 mL soln omeprazole 20 mg capsule,delayed 20 mg PO DAILY #90 caps 07/26/24 release albuterol sulfate 2.5 mg/3 mL 2.5 mg (3 mL) inhalation QID #75 mL 07/27/24 (0.083 %) solution for nebulization gabapentin 100 mg capsule 100 mg PO 3XD #270 caps 08/14/24 losartan 50 mg tablet 50 mg PO BID #180 tabs 08/14/24 potassium citrate 10 mEq (1,080 10 meq PO BID #180 tabs 08/14/24 mg) tablet,extended release citric ac 1980.6 mg-glucono 59.4 30 ml irrigation TID #900 mL 08/29/24 mg-mag carb 980.4 mg/30 mL irrig.soln (Renacidin) pen needle, diabetic 32 gauge x #100 ea 10/11/24 (Reshma 2nd Gen Pen Needle) atorvastatin 10 mg tablet 10 mg PO DAILY #90 tabs 11/16/24 finasteride 5 mg tablet 5 mg PO DAILY #90 tabs 11/16/24 ketoconazole 200 mg tablet 200 mg PO BID #20 tabs 12/14/24 nystatin 100,000 unit/gram topical 1 applic topical TID #15 grams 12/14/24 powder prednisone 10 mg tablet 20 mg (2 x 10 mg) PO DAILY #22 12/14/24 tab-caps Allergies Allergy/AdvReac Type Severity Reaction Status Date / Time No Known Drug Allergies Allergy Verified 12/15/24 19:47 Review of Systems Review of Systems ROS Unobtainable: All systems reviewed & are unremarkable except as noted in HPI and below Patient History Medical History Tinea cruris Impingement of both shoulders Acute on chronic urinary retention Urinary retention COPD exacerbation History of urinary retention Hyperlipidemia History of nephrolithiasis Left nephrolithiasis Urinary retention Recurrent UTI History of prostate cancer Acne Shoulder pain Ankle pain Measles Chicken pox Prostate cancer (~2010) Anemia Benign prostatic hyperplasia GERD (gastroesophageal reflux disease) Hypertension Type 2 diabetes mellitus Parkinson's disease Congestive heart failure Surgical History S/P deep brain stimulator placement (11/2019) History of prostate biopsy Anesthesia History of knee surgery Kidney stones Family History Father Stroke Hypertension Bacterial UTI Mother Cancer Sister Hypertension Aunt Diabetes mellitus Uncle Kidney stones Social History marital status: number of children: 3 household members: spouse and children alcohol intake: never Type(s) of exercise: walking frequency: 1-2 times per week tobacco type: cigarettes alcohol intake frequency: holidays/special occasions only Exam Narrative Exam Narrative: General: Appears to be slightly retracting, has a non-rebreather mask on. Head: normocephalic, atraumatic, HEENT: Pupils equal round reactive, eyes tracking well, neck supple, no JVD Heart: regular rate and rhythm, no murmurs, rubs, or gallops heard Lungs: clear to auscultation, no adventitious sounds, decreased breath sounds Abdomen: soft , nontender, nondistended, positive bowel sounds Neurological: no focal neurological signs, moving all extremities well, alert and oriented x3, Psych: good judgment ,good insight, mood is normal. Initial Vital Signs Initial Vital Signs: Vital Signs Temperature 98.5 F 12/15/24 19:47 Pulse Rate 95 H 12/15/24 19:47 Respiratory Rate 36 H 12/15/24 19:47 Blood Pressure 131/83 12/15/24 19:47 Pulse Oximetry 100 12/15/24 19:47 Oxygen Delivery Method Non -Rebreather 12/15/24 19:47 Oxygen Flow Rate 15 12/15/24 19:47 Course Orders Ordered: ED Orders 12/15/24 19:35 CMP [Comprehensive Metabolic Panel] Stat 12/15/24 19:57 Complete Blood Count AUTO DIFF Stat D Dimer Stat Magnesium Stat NT-proBNP (BNP-Adult 18+) Stat Procalcitonin Stat Troponin I Stat Venous Blood Gas Routine EKG-12 Lead Stat 12/15/24 19:58 XR chest 1V Stat Lactate (Lactic Acid) Stat 12/15/24 19:59 Venous Blood Gas STAT 12/15/24 20:01 UA dip [Urinalysis Screen (Dip Only)] Stat 12/15/24 20:30 Blood Culture Stat 12/15/24 20:32 CT angio chest PE protocol Stat 12/15/24 21:26 Consult to Pharmacy Stat Heparin Sodium (Porcine) (Heparin 5,000 Unit/Ml Vial) 5,000 unit SUBCUT BID KONG Sodium Chloride (Normal Saline 0.9%) 1,000 mls @ 100 mls/hr IV CONT KONG Naloxone HCl (Naloxone 0.4 Mg/Ml Vial) 0.2 mg IV Q2MIN PRN PRN Reason: Opiate Reversal Discontinued Medications Albuterol/Ipratropium (Albuterol/Ipratropium 3 Ml Ampul) 3 ml INH NOW ONE Stop: 12/15/24 19:45 Dexamethasone (Dexamethasone 10 Mg/Ml Vial) 10 mg IV NOW ONE Stop: 12/15/24 19:45 Last Admin: 12/15/24 19:54 Dose: 10 mg Sodium Chloride (Normal Saline 0.9%) 1,000 mls @ 1,000 mls/hr IV BOLUS ONE Stop: 12/15/24 21:14 Last Admin: 12/15/24 20:42 Dose: 1,000 mls/hr Vancomycin HCl 1,000 mg/ (Sodium Chloride) 100 mls @ 100 mls/hr IV NOW ONE Stop: 12/15/24 21:25 Piperacillin Sod/Tazobactam (Sod 4.5 gm/ Sodium Chloride) 100 mls @ 200 mls/hr IV NOW ONE Stop: 12/15/24 21:27 Lidocaine HCl (Lidocaine 2% (Glydo) 6 Ml Gel) 6 ml TOP NOW ONE Stop: 12/15/24 20:17 Last Admin: 12/15/24 20:38 Dose: Not Given Reevaluation(s) Reevaluation #1: Upon re-evaluation, patient is off of all oxygen and almost back to his baseline as far as breathing. He did have an elevated lactic acid and so met the SIRS criteria and fluids and antibiotics and blood cultures were done for the patient Consultations Consultation #1: Dr. sim hospitalist was consulted who graciously agreed to admit the patient inpatient with telemetry Vital Signs Vital signs: Vital Signs - 8 hr 12/15/24 19:47 12/15/24 19:50 12/15/24 20:00 Temperature 98.5 F Pulse Rate 95 H 95 H Respiratory Rate 36 H 30 H Blood Pressure 131/83 129/58 L Pulse Oximetry 100 88 L Oxygen Delivery Method Non -Rebreather Oxygen Flow Rate 15 12/15/24 20:00 12/15/24 20:30 12/15/24 20:30 Temperature Pulse Rate 94 H 91 H Respiratory Rate 30 H Blood Pressure 126/60 Pulse Oximetry 93 93 Oxygen Delivery Method Oxygen Flow Rate MDM - SOB/Dyspnea Lab Data 12/15/24 19:35 12/15/24 19:35 Labs: Lab Results 12/15/24 12/15/24 12/15/24 Range/Units 19:35 19:57 21:35 WBC 9.3 (4.5-11.0) X10^3/uL RBC 4.04 L (4.5-5.9) X10^6/uL Hgb 12.1 L (13.5-17.5) g/dL Hct 35.4 L (41-53) % MCV 87.6 (80-100) fL MCH 30.0 (26-34) PG MCHC 34.3 (30-36) % RDW 15.1 H (11.6-14.8) % Plt Count 235 (150-400) X10^3/uL Neut % (Auto) 92.4 H (50-75) % Lymph % (Auto) 5.5 L (25-40) % [place] % (Auto) 1.8 L (3-14) % Eos % (Auto) 0.0 L (2-4) % Baso % (Auto) 0.3 (0-2) % Neut # (Auto) 8600 H (4621-6830) /uL Lymph # (Auto) 500 L (3654-7293) /uL [place] # (Auto) 200 (0-900) /uL Eos # (Auto) 0 (0-450) /uL Baso # (Auto) 0 (0-100) /uL D-Dimer 1084 H (<500) ng/ml VBG pH 7.42 (7.33-7.43) VBG pCO2 29.9 L (45-50) mmHg VBG pO2 47 H (35-45) mmHg VBG HCO3 20 L (24-28) mmol/L VBG Total CO2 18 L (24-29) mmol/L VBG O2 Saturation 84 H (70-75) % VBG Base Excess -4.0 L (0-4) mmol/L Sodium 134 L (137-145) mmol/L Potassium 4.4 (3.4-5.1) mmol/L Chloride 102 (98-107) mmol/L Carbon Dioxide 15 L (22-32) mmol/L BUN 21 H (9-20) mg/dL Creatinine 0.83 (0.66-1.25) mg/dL Estimated GFR > 60 (>60) mL/min BUN/Creatinine Ratio 25.3 H (6-22) Glucose 323 H (70-99) mg/dL Lactate 5.3 H* Cancelled (0.7-2.1) mmol/L Calcium 9.6 (8.4-10.2) mg/dL Magnesium 1.6 (1.6-2.3) mg/dL Total Bilirubin 0.5 (0.2-1.3) mg/dL AST 15 L (17-59) IU/L ALT 16 (<50) IU/L Alkaline Phosphatase 85 (38-126) U/L Troponin I < 0.012 (0.01-0.034) ng/mL NT-Pro-B Natriuret Pep 417 (<450) pg/mL Total Protein 6.3 (6.3-8.2) g/dL Albumin 3.9 (3.5-5.0) g/dL Globulin 2.4 (1.7-4.1) g/dL Albumin/Globulin Ratio 1.6 (1.0-2.8) Procalcitonin 0.063 (<0.5) ng/mL Imaging Data Chest x-ray: Radiologist's Impression: no consolidations CT scan - chest: Radiologist's Impression: No pulmonary embolus. No acute cardiopulmonary process. MDM Narrative Medical decision making narrative: 74-year-old male with a history of Parkinson's, COPD, diabetes on insulin regimen presents with an exacerbation of his COPD. Currently the patient has been stabilized with initially a non-rebreather mask, DuoNeb treatment, dexamethasone. Patient also meets SIRS criteria and so was started on vancomycin and Zosyn, blood cultures were taken, given a bolus of fluids as well. Patient will be admitted as an inpatient on telemetry by the hospitalist. Discharge Plan Departure Patient Disposition: Admitted As Inpatient Clinical Impression: Acute exacerbation of chronic obstructive pulmonary disease Admit Date/Time: 12/15/24 21:37 Admit Provider: Arnoldo Sim
--- NOTE | 2024-12-15 19:57 | EKG_ITS ---
[address] [address] Test Date: 2024-12-15 Pat Name: Sarbjit Mayen Department: [facility] Room: Gender: Male Conservation Scientist: TERESITA SOTO : [id number] Requested By: Order Number: [id number] Reading MD: Ron Graham MD Measurements Intervals [place] Rate: 92 P: 103 MT: 158 QRS: -28 QRSD: 78 T: 21 QT: 352 QTc: 435 Interpretive Statements Normal sinus rhythm with sinus arrhythmia Minimal voltage criteria for LVH, may be normal variant ( R in aVL ) Electronically Signed On 12-16-2024 9:07:18 PST by Ron Graham MD
--- NOTE | 2024-12-15 19:58 | DI.RAD.S_ITS ---
PROCEDURE: XR CHEST 1V INDICATIONS: shortness of breath, dyspnea TECHNIQUE: One view of the chest was acquired. COMPARISON: [facility], CR, XR CHEST 1V, 11/20/2024, 20:59. FINDINGS: Surgical changes and devices: Monitoring device with leads extending cranially overlying the right hemithorax. Lungs and pleura: Lungs are clear. No pleural effusions or pneumothorax. Mediastinum: Mediastinal contours appear normal. Heart size is normal. Bones and chest wall: No suspicious bony lesions. Overlying soft tissues appear unremarkable. Irregularity of the left ribs suggestive of remote trauma. IMPRESSION: No consolidations. Dictated by: Phyllis Feng M.D. on 12/15/2024 at 20:45 Approved by: Phyllis Feng M.D. on 12/15/2024 at 20:46
[2024-12-15 20:07] LABS: Add Manual Diff / Slide Review NO; Hematocrit 35.4 % (41-53); Hemoglobin 12.1 g/dL (13.5-17.5); Lymphocytes Absolute Auto 500 /uL (1100-4500); Mean Corpuscular HGB Conc 34.3 % (30-36); Mean Corpuscular Hemoglobin 30.0 PG (26-34); Mean Corpuscular Volume 87.6 fL (80-100); Platelet Count 235 X10^3/uL (150-400)
[2024-12-15 20:11] LABS: Magnesium 1.6 mg/dL (1.6-2.3)
[2024-12-15 20:12] LABS: Base Excess VBG -4.0 mmol/L (0-4); HCO3 VBG 20 mmol/L (24-28); Oxygen Saturation VBG 84 % (70-75); PCO2 VBG 29.9 mmHg (45-50); PO2 VBG 47 mmHg (35-45); Total CO2 VBG 18 mmol/L (24-29); pH VBG 7.42 (7.33-7.43)
[2024-12-15 20:13] LABS: Lactate (Lactic Acid) 5.3 mmol/L (0.7-2.1)
[2024-12-15 20:24] LABS: NT-proBNP (BNP-Adult 18+) 417 pg/mL (<450); Troponin I < 0.012 ng/mL (0.01-0.034)
[2024-12-15 20:28] LABS: Alanine Aminotransferase 16 IU/L (<50); Albumin 3.9 g/dL (3.5-5.0); Albumin Globulin Ratio 1.6 (1.0-2.8); Alkaline Phosphatase 85 U/L (38-126); Blood Urea Nitrogen 21 mg/dL (9-20); Calcium 9.6 mg/dL (8.4-10.2); Carbon Dioxide 15 mmol/L (22-32); Chloride 102 mmol/L (98-107); Estimated Glomerular Filt Rate > 60 mL/min (>60); Globulin 2.4 g/dL (1.7-4.1); Glucose 323 mg/dL (70-99); HEMOLYSIS < 15 (0-50); Potassium 4.4 mmol/L (3.4-5.1); Sodium 134 mmol/L (137-145); Total Protein 6.3 g/dL (6.3-8.2)
[2024-12-15 20:29] LABS: Procalcitonin 0.063 ng/mL (<0.5)
--- NOTE | 2024-12-15 20:32 | DI.CT.S_ITS ---
PROCEDURE: CT ANGIO CHEST PE PROTOCOL INDICATIONS: elevated d dimer, sob TECHNIQUE: After the administration of intravenous contrast, 2 mm thick sections acquired from the pulmonary apices to the posterior costophrenic angles. 3-dimensional maximum intensity projection (MIP) coronal and sagittal reformats were then acquired through the thorax. For radiation dose reduction, the following was used: automated exposure control, adjustment of mA and/or kV according to patient size. COMPARISON: [facility], CT, CT ANGIO CHEST PE PROTOCOL, 11/20/2024, 22:24. FINDINGS: Image quality: Diagnostic. Pulmonary arteries: Pulmonary arteries are normal in size, and demonstrate no intraluminal filling defects to suggest central pulmonary embolism. Lower Neck: No enlarged lymph nodes. Thyroid: No thyroid nodules which require sonographic follow up, per consensus guidelines. Axillae: No enlarged lymph nodes. Chest Wall: Unremarkable. Bones: Unremarkable. Lungs and Pleura: No pneumothorax or pleural effusions. No consolidation or suspicious nodules. Heart: Heart size is prominent. No pericardial effusion. Thoracic Vessels: No aortic aneurysm. Mediastinum and [place]: No enlarged lymph nodes. Esophagus: No wall thickening. Mild hiatal hernia. Upper Abdomen: Unchanged left adrenal nodule. IMPRESSION: No pulmonary embolus. No acute cardiopulmonary process. Dictated by: Phyllis Feng M.D. on 12/15/2024 at 21:02 Approved by: Phyllis Feng M.D. on 12/15/2024 at 21:04
[2024-12-15] MEDS: SODIUM CHLORIDE 0.9% 1,000 ML 1000 ML IV (20:42)
[2024-12-15 21:37] LABS: Reflexed Lactate in 2 Hours Y
[2024-12-15 21:59] LABS: Lactate 2HR (Lactic Acid Rflx) 3.5 mmol/L (0.7-2.1)
[2024-12-15] MEDS: PIPERACILLIN/TAZO 4.5 GM in SODIUM CHLORIDE 0.9% 100 ML IV (22:00)
[2024-12-15] MEDS: SODIUM CHLORIDE 0.9% 1,000 ML 100 ML IV (23:49)
[2024-12-16] VITALS (23 sets, daily range): BP systolic 136–187; BP diastolic 61–93; PULSE 71–88; RESP 6–34; TEMP 31–37.2; O2SAT 93–100
--- NOTE | 2024-12-16 00:02 | PM.HP.1 ---
History of Present Illness History of Present Illness Date Patient Seen: 12/15/24 Time Patient Seen: 23:22 Chief complaint: SOB Narrative: 74-year-old male with past medical history of insulin-dependent diabetes but also on metformin, hypertension, hyperlipidemia and BPH resents with complaint of shortness of breath. Per the patient's report, over the last few days, the patient has been having increasing shortness of breath with some wheezing. The patient however denies any fever, chills, nausea, vomiting, diarrhea, chest pain or syncope. The patient did try to take his inhalers at home without much improvement in his symptoms. In the emergency room, the patient was hemodynamically stable though was requiring a nonrebreather mask due to hypoxemia. CT angio of the chest shows no PE or pneumonia. The patient however did have a lactate of 5.3 but normal WBC and was afebrile. The patient was given Solu-Medrol, DuoNebs and empiric vancomycin and Zosyn after blood cultures were drawn. IV fluids were also given and repeat lactate came down to 3.5. [facility]LY [facility] Medical History Tinea cruris Impingement of both shoulders Acute on chronic urinary retention Urinary retention COPD exacerbation History of urinary retention Hyperlipidemia History of nephrolithiasis Left nephrolithiasis Urinary retention Recurrent UTI History of prostate cancer Acne Shoulder pain Ankle pain Measles Chicken pox Prostate cancer (~2010) Anemia Benign prostatic hyperplasia GERD (gastroesophageal reflux disease) Hypertension Type 2 diabetes mellitus Parkinson's disease Congestive heart failure Surgical History S/P deep brain stimulator placement (11/2019) History of prostate biopsy Anesthesia History of knee surgery Kidney stones Family History Father Stroke Hypertension Bacterial UTI Mother Cancer Sister Hypertension Aunt Diabetes mellitus Uncle Kidney stones Social History marital status: number of children: 3 household members: spouse and children alcohol intake: never Type(s) of exercise: walking frequency: 1-2 times per week Meds Home Medications and Allergies Home Medications ?Medication ?Instructions ?Recorded ?Confirmed ?Type latanoprost 0.005 % eye drops 1 drp EYE-BOTH DAILY 06/02/22 12/15/24 History aspirin 81 mg tablet,delayed 81 mg PO DAILY 10/21/22 12/15/24 History release (Adult Low Dose Aspirin) acetaminophen 500 mg tablet 500 mg PO Q6H PRN Pain (Scale 04/03/23 12/15/24 History (Acetaminophen Extra Strength) Score 4-6) carbidopa 25 mg-levodopa 100 mg See Rx Instructions .Route .COMPLEX 04/03/23 12/15/24 History tablet cranberry fruit 400 mg capsule 400 mg PO DAILY 04/03/23 12/15/24 History entacapone 200 mg tablet 200 mg PO 5XD 05/18/23 12/15/24 History blood sugar diagnostic (Blood #50 ea 02/16/24 12/14/24 Rx Glucose Test strips) blood-glucose meter #1 ea 02/16/24 12/14/24 Rx lancets 31 gauge (Comfort Touch #100 ea 02/16/24 12/14/24 Rx Ultra Thin Lancets) methenamine hippurate 1 gram tablet 1 g PO BID #180 tabs 04/27/24 12/15/24 Rx metformin 850 mg tablet 850 mg PO TID #240 tabs 05/11/24 12/15/24 Rx albuterol sulfate 90 mcg/actuation 1 puff inhalation Q4-6H #8.5 grams 05/25/24 12/15/24 Rx aerosol inhaler potassium chloride 10 mEq 10 meq PO BID 05/25/24 12/15/24 History tablet,extended release temazepam 15 mg capsule 15 mg PO BEDTIME PRN sleep 05/25/24 12/15/24 History timolol maleate 0.25 % eye drops 1 drp EYE-BOTH DAILY 05/25/24 12/15/24 History ipratropium 0.5 mg-albuterol 3 mg 3 ml inhalation Q6H PRN shortness 07/16/24 12/15/24 Rx (2.5 mg base)/3 mL nebulization of breath or wheezing #180 mL soln omeprazole 20 mg capsule,delayed 20 mg PO DAILY #90 caps 07/26/24 12/15/24 Rx release albuterol sulfate 2.5 mg/3 mL 2.5 mg (3 mL) inhalation QID #75 mL 07/27/24 12/15/24 Rx (0.083 %) solution for nebulization gabapentin 100 mg capsule 100 mg PO 3XD #270 caps 08/14/24 12/15/24 Rx losartan 50 mg tablet 50 mg PO BID #180 tabs 08/14/24 12/15/24 Rx potassium citrate 10 mEq (1,080 10 meq PO BID #180 tabs 08/14/24 12/15/24 Rx mg) tablet,extended release citric ac 1980.6 mg-glucono 59.4 30 ml irrigation TID #900 mL 08/29/24 12/15/24 Rx mg-mag carb 980.4 mg/30 mL irrig.soln (Renacidin) pen needle, diabetic 32 gauge x #100 ea 10/11/24 12/14/24 Rx /32 (Reshma 2nd Gen Pen Needle) atorvastatin 10 mg tablet 10 mg PO DAILY #90 tabs 11/16/24 12/15/24 Rx finasteride 5 mg tablet 5 mg PO DAILY #90 tabs 11/16/24 12/15/24 Rx amlodipine 5 mg tablet 10 mg PO DAILY 11/21/24 12/15/24 History tamsulosin 0.4 mg capsule 0.4 mg PO DAILY 11/21/24 12/15/24 History insulin glargine 100 unit/mL (3 125 unit SUBCUT BEDTIME 12/14/24 12/15/24 History mL) subcutaneous pen (Lantus Solostar U-100 Insulin) ketoconazole 200 mg tablet 200 mg PO BID #20 tabs 12/14/24 12/15/24 Rx nystatin 100,000 unit/gram topical 1 applic topical TID #15 grams 12/14/24 12/15/24 Rx powder prednisone 10 mg tablet 20 mg (2 x 10 mg) PO DAILY #22 12/14/24 12/15/24 Rx tab-caps Allergies Allergy/AdvReac Type Severity Reaction Status Date / Time No Known Drug Allergies Allergy Verified 12/15/24 19:47 Review of Systems Review of Systems ROS: Yes All systems reviewed with the patient and are negative except as otherwise documented Exam Vital Signs (past 8 hours): - 12/15/24 19:47 12/15/24 19:50 12/15/24 20:00 Temperature 98.5 F Pulse Rate 95 H 95 H Respiratory Rate 36 H 30 H Blood Pressure 131/83 129/58 L Pulse Oximetry 100 88 L Oxygen Delivery Method Non -Rebreather Oxygen Flow Rate 15 12/15/24 20:00 12/15/24 20:30 12/15/24 20:30 Temperature Pulse Rate 94 H 91 H Respiratory Rate 30 H Blood Pressure 126/60 Pulse Oximetry 93 93 Oxygen Delivery Method Oxygen Flow Rate 12/15/24 20:52 12/15/24 20:52 12/15/24 21:00 Temperature Pulse Rate 89 Respiratory Rate 35 H Blood Pressure 118/85 151/67 H Pulse Oximetry 93 Oxygen Delivery Method Oxygen Flow Rate 12/15/24 21:00 12/15/24 21:30 12/15/24 21:30 Temperature Pulse Rate 87 84 Respiratory Rate 30 H 32 H Blood Pressure 157/73 H Pulse Oximetry 92 95 Oxygen Delivery Method Oxygen Flow Rate 12/15/24 21:41 12/15/24 22:00 12/15/24 22:00 Temperature Pulse Rate 83 Respiratory Rate 30 H Blood Pressure 137/66 Pulse Oximetry 96 95 Oxygen Delivery Method Non -Rebreather Oxygen Flow Rate 1 12/15/24 22:28 12/15/24 23:37 Temperature 98.3 F Pulse Rate 83 Respiratory Rate 21 Blood Pressure 138/78 Pulse Oximetry 96 Oxygen Delivery Method Non -Rebreather Oxygen Flow Rate Oxygen Delivery Method Non -Rebreather Oxygen Flow Rate 1 Narrative Exam Narrative: Physical Exam: GENERAL: The patient is not in any acute distressed. Awake and alert. HEENT: Nonicteric sclerae, PERRLA, EOMI. Oropharynx clear. Moist mucous membranes. Conjunctivae appear well perfused. HEART: Regular rate and rhythm without murmurs. No lower extremities edema. LUNGS: Clear to auscultation bilaterally. No wheezing, crackles or rhonchi ABDOMEN: Soft, positive bowel sounds, nontender. SKIN: No rash, no excessive bruising, petechiae, or purpura. NEUROLOGIC: AxO x 3. Cranial nerves II-XII intact without motor/sensory deficit. Objective Labs 12/15/24 19:35 12/15/24 19:35 Labs: Laboratory Results - last 24 hr 12/15/24 12/15/24 12/15/24 19:35 19:57 21:35 WBC 9.3 RBC 4.04 L Hgb 12.1 L Hct 35.4 L MCV 87.6 MCH 30.0 MCHC 34.3 RDW 15.1 H Plt Count 235 Neut % (Auto) 92.4 H Lymph % (Auto) 5.5 L [place] % (Auto) 1.8 L Eos % (Auto) 0.0 L Baso % (Auto) 0.3 Neut # (Auto) 8600 H Lymph # (Auto) 500 L [place] # (Auto) 200 Eos # (Auto) 0 Baso # (Auto) 0 D-Dimer 1084 H VBG pH 7.42 VBG pCO2 29.9 L VBG pO2 47 H VBG HCO3 20 L VBG Total CO2 18 L VBG O2 Saturation 84 H VBG Base Excess -4.0 L Sodium 134 L Potassium 4.4 Chloride 102 Carbon Dioxide 15 L BUN 21 H Creatinine 0.83 Estimated GFR > 60 BUN/Creatinine Ratio 25.3 H Glucose 323 H Lactate 5.3 H* Cancelled Calcium 9.6 Magnesium 1.6 Total Bilirubin 0.5 AST 15 L ALT 16 Alkaline Phosphatase 85 Troponin I < 0.012 NT-Pro-B Natriuret Pep 417 Total Protein 6.3 Albumin 3.9 Globulin 2.4 Albumin/Globulin Ratio 1.6 Procalcitonin 0.063 12/15/24 21:35 WBC RBC Hgb Hct MCV MCH MCHC RDW Plt Count Neut % (Auto) Lymph % (Auto) [place] % (Auto) Eos % (Auto) Baso % (Auto) Neut # (Auto) Lymph # (Auto) [place] # (Auto) Eos # (Auto) Baso # (Auto) D-Dimer VBG pH VBG pCO2 VBG pO2 VBG HCO3 VBG Total CO2 VBG O2 Saturation VBG Base Excess Sodium Potassium Chloride Carbon Dioxide BUN Creatinine Estimated GFR BUN/Creatinine Ratio Glucose Lactate 3.5 H Calcium Magnesium Total Bilirubin AST ALT Alkaline Phosphatase Troponin I NT-Pro-B Natriuret Pep Total Protein Albumin Globulin Albumin/Globulin Ratio Procalcitonin Assessment & Plan Assessment & Plan narrative: COPD exacerbation. Admit the patient to medical telemetry as inpatient. No signs of pneumonia. Continue DuoNebs with Solu-Medrol. Continue oxygen. Acute respiratory failure with hypoxemia. Again patient CT angio of the chest shows no PE and has no pneumonia. Continue to wean oxygen as able with above treatment. Elevated lactic acid. Lactic acid 5.3 and after IV fluid came down to 3.5. Of note the patient is on metformin at home and this could possibly possibly cause lactic acidosis. However patient does not have SIRS criteria as there is no fever or temperature less than 96 ?F. Chest x-ray and CT angio of the chest shows no PE. Will hold off any further antibiotic and monitor for now. Hold metformin and trend lactate to normal with IV fluid. Hypertension. Monitor blood pressure and resume home medication accordingly. Hyperlipidemia. Resume home statin. BPH. Resume home medication. DVT prophylaxis Lovenox. CODE STATUS DNR/DNI Disposition likely home in 2 days. - As the provider of this telehealth evaluation, requested by the patient's evaluating physician, I attest that I introduced myself to the patient, provided my credentials and determined that telemedicine via a real-time, 2 way interactive audio and video platform is an appropriate and effective means of providing this service. - I reviewed the patient's chart and had a discussion with the member of the patient's treatment team. - The patient and I mutually agreed with continuation of this evaluation via telemedicine. The patient consented for the telemedicine evaluation. - This virtual encounter was taken place from [place] by Dr. Arnoldo Sim. The patient was evaluated at [facility]. The encounter was approximately 35 minutes. The nurse was present during the entire time of the encounter and was able to assists with exam/stethoscope. Time-Based Coding :: [TOTAL MINUTES] spent with patient and on the chart (including review of chart, obtaining history, exam, reviewing outside data, placing orders, documenting exam and treatment plan, and counseling patient) on [DATE].
[2024-12-16] MEDS: VANCOMYCIN 1,000 MG in SODIUM CHLORIDE 0.9% 100 ML 100 MG IV (00:33)
[2024-12-16] MEDS: GABAPENTIN 100 MG CAPSULE PO ×4 (00:34→21:35)
[2024-12-16] MEDS: VANCOMYCIN 500 MG in SODIUM CHLORIDE 0.9% 100 ML 100 MG IV (02:19)
[2024-12-16] MEDS: CARBIDOPA-LEVODOPA 25/100 TABLET 3 EACH PO ×2 (06:00→14:44)
[2024-12-16 06:22] LABS: Lactate (Lactic Acid) 2.3 mmol/L (0.7-2.1)
[2024-12-16 07:43] LABS: Reflexed Lactate in 2 Hours Y
[2024-12-16 08:23] LABS: Lactate 2HR (Lactic Acid Rflx) 1.9 mmol/L (0.7-2.1)
[2024-12-16] MEDS: ATORVASTATIN 20 MG TABLET 10 MG PO (08:23)
[2024-12-16] MEDS: HEPARIN 5,000 UNIT/ML VIAL 5000 UNIT SUBCUT ×2 (08:23→21:35)
[2024-12-16] MEDS: FINASTERIDE 5 MG TABLET PO (08:23)
[2024-12-16] MEDS: ASPIRIN EC 81 MG TABLET PO (08:23)
[2024-12-16] MEDS: TAMSULOSIN 0.4 MG CAPSULE PO (08:23)
[2024-12-16] MEDS: INSULIN LISPRO 100 UNIT/ML 3ML VIAL SUBCUT ×3 (08:24→17:34)
[2024-12-16] MEDS: INSULIN GLARGINE 100 UNIT/ML 3ML PEN 45 UNIT SUBCUT (08:24)
[2024-12-16] MEDS: CARBIDOPA-LEVODOPA 25/100 TABLET 2.5 EACH PO ×3 (10:08→21:36)
--- NOTE | 2024-12-16 10:39 | P.PN_ITS ---
Subjective Subjective Date Patient Seen: 12/16/24 Time Patient Seen: 08:13 Interval history: History of present illness: 74-year-old male with past medical history of insulin-dependent diabetes but also on metformin, hypertension, hyperlipidemia and BPH resents with complaint of shortness of breath. Per the patient's report, over the last few days, the patient has been having increasing shortness of breath with some wheezing. The patient however denies any fever, chills, nausea, vomiting, diarrhea, chest pain or syncope. The patient did try to take his inhalers at home without much improvement in his symptoms. In the emergency room, the patient was hemodynamically stable though was requiring a nonrebreather mask due to hypoxemia. CT angio of the chest shows no PE or pneumonia. The patient however did have a lactate of 5.3 but normal WBC and was afebrile. The patient was given Solu-Medrol, DuoNebs and empiric vancomycin and Zosyn after blood cultures were drawn. IV fluids were also given and repeat lactate came down to 3.5. Interval history: 12/16: The patient is awake, appropriate, appears comfortable. He states he feels weak and shortness of breath with minimal exertion. He is hungry and interested in breakfast. Exam Vital Signs (past 8 hours): - 12/16/24 03:37 12/16/24 03:56 12/16/24 07:00 Temperature 97.6 F Pulse Rate 79 Respiratory Rate 20 Blood Pressure 164/86 H Pulse Oximetry 97 97 93 Oxygen Delivery Method Non -Rebreather Nasal Cannula Oxygen Flow Rate 1 1 1.5 12/16/24 08:00 12/16/24 09:14 Temperature 98.1 F Pulse Rate 82 Respiratory Rate 15 Blood Pressure 142/87 H Pulse Oximetry 99 98 Oxygen Delivery Method Oxygen Flow Rate 1 1 Oxygen Delivery Method Nasal Cannula Oxygen Flow Rate 1 Narrative Exam Narrative: NAD, alert and oriented. Soft speech. Chronically ill in appearance. Lungs with scattered rhonchi and mid to end-expiratory wheezes Heart is regular, no murmur gallop or rub. Abdomen is soft, non distended. Extremities are free of edema. Objective Imaging *: Radiologist's impression: 1. Chest x-ray 12/15/2024: No consolidations. 2. Chest CTA 12/15/2024: No pulmonary embolus. No acute cardiopulmonary process. Labs 12/15/24 19:35 12/15/24 19:35 Labs: Laboratory Results - last 24 hr 12/15/24 12/15/24 12/15/24 19:35 19:57 21:35 WBC 9.3 RBC 4.04 L Hgb 12.1 L Hct 35.4 L MCV 87.6 MCH 30.0 MCHC 34.3 RDW 15.1 H Plt Count 235 Neut % (Auto) 92.4 H Lymph % (Auto) 5.5 L [place] % (Auto) 1.8 L Eos % (Auto) 0.0 L Baso % (Auto) 0.3 Neut # (Auto) 8600 H Lymph # (Auto) 500 L [place] # (Auto) 200 Eos # (Auto) 0 Baso # (Auto) 0 D-Dimer 1084 H VBG pH 7.42 VBG pCO2 29.9 L VBG pO2 47 H VBG HCO3 20 L VBG Total CO2 18 L VBG O2 Saturation 84 H VBG Base Excess -4.0 L Sodium 134 L Potassium 4.4 Chloride 102 Carbon Dioxide 15 L BUN 21 H Creatinine 0.83 Estimated GFR > 60 BUN/Creatinine Ratio 25.3 H Glucose 323 H POC Whole Bld Glucose Lactate 5.3 H* Cancelled Calcium 9.6 Magnesium 1.6 Total Bilirubin 0.5 AST 15 L ALT 16 Alkaline Phosphatase 85 Troponin I < 0.012 NT-Pro-B Natriuret Pep 417 Total Protein 6.3 Albumin 3.9 Globulin 2.4 Albumin/Globulin Ratio 1.6 Procalcitonin 0.063 12/15/24 12/16/24 12/16/24 21:35 03:14 05:13 WBC RBC Hgb Hct MCV MCH MCHC RDW Plt Count Neut % (Auto) Lymph % (Auto) [place] % (Auto) Eos % (Auto) Baso % (Auto) Neut # (Auto) Lymph # (Auto) [place] # (Auto) Eos # (Auto) Baso # (Auto) D-Dimer VBG pH VBG pCO2 VBG pO2 VBG HCO3 VBG Total CO2 VBG O2 Saturation VBG Base Excess Sodium Potassium Chloride Carbon Dioxide BUN Creatinine Estimated GFR BUN/Creatinine Ratio Glucose POC Whole Bld Glucose 283 H Lactate 3.5 H 2.3 H Calcium Magnesium Total Bilirubin AST ALT Alkaline Phosphatase Troponin I NT-Pro-B Natriuret Pep Total Protein Albumin Globulin Albumin/Globulin Ratio Procalcitonin 12/16/24 12/16/24 07:21 08:06 WBC RBC Hgb Hct MCV MCH MCHC RDW Plt Count Neut % (Auto) Lymph % (Auto) [place] % (Auto) Eos % (Auto) Baso % (Auto) Neut # (Auto) Lymph # (Auto) [place] # (Auto) Eos # (Auto) Baso # (Auto) D-Dimer VBG pH VBG pCO2 VBG pO2 VBG HCO3 VBG Total CO2 VBG O2 Saturation VBG Base Excess Sodium Potassium Chloride Carbon Dioxide BUN Creatinine Estimated GFR BUN/Creatinine Ratio Glucose POC Whole Bld Glucose 281 H Lactate 1.9 Calcium Magnesium Total Bilirubin AST ALT Alkaline Phosphatase Troponin I NT-Pro-B Natriuret Pep Total Protein Albumin Globulin Albumin/Globulin Ratio Procalcitonin [facility] Medical History Acne Acute on chronic urinary retention Anemia Ankle pain Benign prostatic hyperplasia Chicken pox Congestive heart failure COPD exacerbation GERD (gastroesophageal reflux disease) History of nephrolithiasis History of prostate cancer History of urinary retention Hyperlipidemia Hypertension Impingement of both shoulders Left nephrolithiasis Measles Parkinson's disease Prostate cancer (~2010) Recurrent UTI Shoulder pain Tinea cruris Type 2 diabetes mellitus Urinary retention Urinary retention Surgical History Anesthesia History of knee surgery History of prostate biopsy Kidney stones S/P deep brain stimulator placement (11/2019) Family History Father Stroke Hypertension Bacterial UTI Mother Cancer Sister Hypertension Aunt Diabetes mellitus Uncle Kidney stones Social History marital status: number of children: 3 household members: spouse and children alcohol intake: never Type(s) of exercise: walking frequency: 1-2 times per week Assessment & Plan Assessment & Plan narrative: 1. COPD exacerbation. Admitted to telemetry/inpatient status. No signs of pneumonia. Continue albuterol/ipratropium nebulizers. He received a dose of methylprednisolone in the ER and will hold off at this point given diabetes, and monitor on nebulizers. Continue oxygen. Note he has had a tendency to decompensate in the hospital in require BiPAP. Monitor closely. 2. Acute respiratory failure with hypoxemia. Again patient CT angio of the chest shows no PE and has no pneumonia. Continue to wean oxygen as able with above treatment. 3. Elevated lactic acid. Lactic acid 5.3 and after IV fluid came down to 1.9 the following morning. Of note the patient is on metformin at home and this could possibly possibly cause lactic acidosis. However patient does not have SIRS criteria as there is no fever or temperature less than 96 ?F. Chest x-ray and CT angio of the chest shows no PE. Will hold off any further antibiotic and monitor for now. Hold metformin and trend lactate to normal with IV fluid. 4. Diabetes mellitus, type 2. Continue insulin glargine, sliding scale coverage and diabetic diet. Consider restarting metformin tomorrow. 5. Hypertension. Monitor blood pressure and resume home medication accordingly. 6. Hyperlipidemia. Continue home statin. 7. BPH with chronic suprapubic catheter. Continue home medication. 8. Parkinson's disease. Continue routine home medication. DVT prophylaxis subcutaneous heparin twice daily. CODE STATUS DNR/DNI Plan: -inpatient status -monitor closely for respiratory decompensation -albuterol/ipratropium nebulizers -reassess for IV steroid use if worsening, holding off further dosing at this time given diabetes -continue routine home medications -physical therapy consultation Disposition likely home in 2 days. PROFEE Information Technology Officer Document charge(s): No Charge Codes Subsequent inpatient/observation care: [id number]
[2024-12-16] MEDS: SODIUM CHLORIDE 0.9% 1,000 ML 100 ML IV ×2 (11:29→21:33)
[2024-12-16 11:41] LABS: Acinetobacter calcoa-baumannii Not Detected (Not Detect); Bacteroides fragilis Not Detected (Not Detect); Candida auris Not Detected (Not Detect); Candida glabrata Not Detected (Not Detect); Cryptococcus neoformans/gatti Not Detected (Not Detect); Enterobacterales Not Detected (Not Detect); Enterococcus faecalis Not Detected (Not Detect); Enterococcus faecium Not Detected (Not Detect); Klebsiella aerogenes Not Detected (Not Detect); Proteus species Not Detected (Not Detect); Serratia marcescens Not Detected (Not Detect); Staphylococcus epidermidis Detected (Not Detect); Staphylococcus lugdunensis Not Detected (Not Detect); Staphylococcus species Detected (Not Detect); Stenotrophomonas maltophilia Not Detected (Not Detect); Streptococcus agalactiae (Gr B Not Detected (Not Detect); Streptococcus pneumonia Not Detected (Not Detect); Streptococcus pyogenes (Gr A) Not Detected (Not Detect); Streptococcus species Not Detected (Not Detect); mecA/C Resistance Detected (Not Detect)
[2024-12-16] MEDS: methylPREDNISolone succ 125 MG/2 ML VIAL 80 MG IV ×2 (14:42→21:34)
[2024-12-16] MEDS: VANCOMYCIN 1,000 MG/200 ML PIGGYBACK 200 MG IV (14:53)
--- NOTE | 2024-12-16 16:08 | CM.DANOTE ---
DCP Assessment note- B pt is a 74yo M admitted with SOB/resp failure. readmit. hx of parkinson's. pt currently in ICU requiring BiPAP. FORENSIC ANALYST reviewed EMR. per chart, pt refused SNF and discharged home [facility]. lives at home in [place] with spouse/DTR/KATINA. has a w/c, walker, and shower bench. unclear from EMR if [place] or [facility] primary ins. FORENSIC ANALYST emailed gris from [facility] to update on pts admission. Pt restless/anxious. requiring Bipap at this time. will f/u Tuesday if further DCP coordination needed. P: anticipate eventual return home with [facility] and family support pending DCP recs. will need to send updated referral to [facility] if that remains the plan. Will continue to follow closely for DCP coordination RENATE Romo Discharge Planning/Care Management Advanced directive, confirm from FAMILY Start: 12/15/24 22:34 Freq: Q24H Status: Active Protocol: Document 12/15/24 22:34 (Rec: 12/15/24 23:30 [id number]) Advance Directive, confirm on record Time 22:00 Person contacted Sonia Schaffer - Copy received Yes Advanced directive Yes available on record CM Discharge Assessment Start: 12/15/24 22:28 Freq: Status: Active Protocol: Document 12/16/24 16:00 SL (Rec: 12/16/24 16:01 [id number]) Discharge Planning Assessment Assigned Discharge RENATE Wilkins Control Room Helper Provider Ravindra Goldsmith Insurance [place],Medicare DPOA/Assigned [place], spouse Designee Name Contact Information [phone] Advance Directives? No Advance Directives No on File History Provided By Patient,Significant Other,Medical Record Has Patient been Yes admitted in last 30 days? Prior Living House Arrangements Household Members spouse,children Comment requested a new . community resources provided. Patient/Family Group Home Facility,Home with Home Health Preference Discharge Plan Home with Home Health Referrals Initiated Home Health,Other Additional Comment hx [facility]/hx of refusing SNF If patient plan is See prior comment home with home health: Has signed face to face form been completed? Review Status In Process Please Provide Date 12/16/24 Initial DC Assessment Was Performed Next Review Type Continued Stay Review
[2024-12-16] MEDS: ALBUTEROL/IPRATROPIUM 3 ML AMPUL INH (19:38)
[2024-12-16] MEDS: INSULIN GLARGINE 100 UNIT/ML 3ML PEN 55 UNIT SUBCUT (21:49)
[2024-12-17] VITALS (38 sets, daily range): BP systolic 136–184; BP diastolic 66–80; PULSE 64–89; RESP 17–42; TEMP 36.3–37.1; O2SAT 88–100; BMI 40.0
[2024-12-17] MEDS: VANCOMYCIN 1,000 MG/200 ML PIGGYBACK 200 MG IV ×3 (00:40→20:19)
[2024-12-17] MEDS: LOSARTAN 50 MG TABLET PO ×3 (02:19→20:19)
--- NOTE | 2024-12-17 03:10 | PC.NURSE ---
Pt attempting to take bp cuff off. States he wants it off. Order is for VS q 1 hr. Changed it to Q 2 hrs. Has refused bipap, RR 30's. Very agitated.
--- NOTE | 2024-12-17 03:12 | RT ---
patient taken off bipap at 0245 per request. 99% on room air
[2024-12-17] MEDS: methylPREDNISolone succ 125 MG/2 ML VIAL 80 MG IV ×3 (05:17→20:18)
[2024-12-17] MEDS: CARBIDOPA-LEVODOPA 25/100 TABLET 3 EACH PO ×2 (06:24→13:49)
--- NOTE | 2024-12-17 07:19 | PM.PN.1 ---
Subjective Subjective Interval history: Summary: 12/16: The patient demonstrates increasing respiratory distress with abdominal breathing pattern over the course of the morning. He is transferred to the ICU for BiPAP therapy. Impression: COPD exacerbation Plan: -transfer to ICU -add IV methylprednisolone 80 mg every 8 hours -BiPAP per RT protocol Blood cultures show Gram-positive cocci with PCR ID showing MRSA. Impression: Possible MRSA bacteremia versus contamination Plan: -IV vancomycin -follow blood cultures -if only 1/2 positivity, consider as a possible contaminant and not a pathogen S: He was feeling much better today, no dyspnea. He states that he fell off his wheelchair at home. He was on BiPAP for a short time overnight. He denies recent URI symptoms. O: VSS. NAD, fluent speech, oriented. Lungs are clear without wheezing. Normal effort and rate. Heart is regular. No murmur. Abdomen is distended and soft. No leg edema, some venous stasis changes. IMAGIN. Chest x-ray 12/15/2024: No consolidations. 2. Chest CTA 12/15/2024: No pulmonary embolus. No acute cardiopulmonary process. A/P: 1. COPD exacerbation. Improved. 2. Acute respiratory failure with hypoxemia. Improved. 3. Elevated lactic acid. Improved. 4. Diabetes mellitus, type 2. Continue insulin glargine, sliding scale coverage and diabetic diet. Consider restarting metformin tomorrow. 5. Hypertension. Monitor blood pressure and resume home medication accordingly. 6. Hyperlipidemia. Continue home statin. 7. BPH with chronic suprapubic catheter. Continue home medication. 8. Parkinson's disease. Continue routine home medication. DVT prophylaxis subcutaneous heparin twice daily. CODE STATUS DNR/DNI PLAN: -monitor respirations and breathing. -wean O2 as able. -up to chair. -transfer out of ICU status. -DC telemetry. Expect need for 2 MN of hospital care. Exam Vital Signs (past 8 hours): - 12/16/24 23:47 12/17/24 00:00 12/17/24 01:00 Temperature Pulse Rate 73 65 Respiratory Rate 34 H 37 H Blood Pressure 173/79 H 184/80 H Pulse Oximetry 99 99 Fraction of Inspired Oxygen 12/17/24 02:00 12/17/24 02:19 12/17/24 03:00 Temperature Pulse Rate 64 68 68 Respiratory Rate 20 22 Blood Pressure 169/78 H 169/78 H 136/74 Pulse Oximetry 100 98 Fraction of Inspired Oxygen 12/17/24 04:00 12/17/24 05:48 12/17/24 06:00 Temperature 97.3 F L Pulse Rate 65 68 65 Respiratory Rate 42 H 32 H 20 Blood Pressure 160/69 H 148/66 H 137/68 Pulse Oximetry 97 98 97 Fraction of Inspired Oxygen Fraction of Inspired Oxygen 25 Oxygen Delivery Method BiPAP Oxygen Flow Rate 35 Objective Labs 12/15/24 19:35 12/15/24 19:35 Labs: Laboratory Results - last 24 hr 12/15/24 12/16/24 12/16/24 20:23 07:21 08:06 POC Whole Bld Glucose 281 H Lactate 1.9 A.calcoaceticus-baumannii cmplx PCR Not detected Bacteroides fragilis Not detected Margarita albicans (PCR) Not detected Margarita auris (PCR) Not detected C. glabrata (PCR) Not detected C. krusei (PCR) Not detected C. parapsilosis (PCR) Not detected C. tropicalis (PCR) Not detected C. neoform/gattii (PCR) Not detected Enterobacterales (PCR) Not detected E. cloacae complex PCR Not detected Enterococc faecalis PCR Not detected Enterococc faecium PCR Not detected E. coli (PCR) Not detected H. influenzae (PCR) Not detected Klebsiella aerogenes (PCR) Not detected Klebsiella oxytoca PCR Not detected Klebsiella pneumoniae Not detected List. monocytogenes PCR Not detected N. meningitidis (PCR) Not detected Proteus species (PCR) Not detected Salmonella spp. (PCR) Not detected Serratia marcescens PCR Not detected Staphylococcus sp PCR Detected Staph aureus (PCR) Not detected mecA/C & MREJ Resist Gene Not applicable mecA/C-Methicil Resis Gene Detected mcr-1 Colistin Res Gene PCR Not applicable Staph epidermidis (PCR) Detected Staph lugdunensis PCR Not detected S. maltophilia (PCR) Not detected Streptococcus sp PCR Not detected Group A Strep (PCR) Not detected Strep agalactiae (PCR) Not detected Strep pneumoniae (PCR) Not detected P. aeruginosa (PCR) Not detected Cal/B-Vanco Res Genes Not applicable blaIMP Car res Gene PCR Not applicable KPC-Carbap Res Gene PCR Not applicable blaNDM Car Res Gene PCR Not applicable OXA-48 Carbapenem Resis Gene (PCR) Not applicable blaVIM Car Res Gene PCR Not applicable CTX-M Gene Resistance (PCR) Not applicable 12/16/24 12/16/24 12/16/24 11:17 17:17 21:07 POC Whole Bld Glucose 277 H 229 H 240 H Lactate A.calcoaceticus-baumannii cmplx PCR Bacteroides fragilis Margarita albicans (PCR) Margarita auris (PCR) C. glabrata (PCR) C. krusei (PCR) C. parapsilosis (PCR) C. tropicalis (PCR) C. neoform/gattii (PCR) Enterobacterales (PCR) E. cloacae complex PCR Enterococc faecalis PCR Enterococc faecium PCR E. coli (PCR) H. influenzae (PCR) Klebsiella aerogenes (PCR) Klebsiella oxytoca PCR Klebsiella pneumoniae List. monocytogenes PCR N. meningitidis (PCR) Proteus species (PCR) Salmonella spp. (PCR) Serratia marcescens PCR Staphylococcus sp PCR Staph aureus (PCR) mecA/C & MREJ Resist Gene mecA/C-Methicil Resis Gene mcr-1 Colistin Res Gene PCR Staph epidermidis (PCR) Staph lugdunensis PCR S. maltophilia (PCR) Streptococcus sp PCR Group A Strep (PCR) Strep agalactiae (PCR) Strep pneumoniae (PCR) P. aeruginosa (PCR) Cal/B-Vanco Res Genes blaIMP Car res Gene PCR KPC-Carbap Res Gene PCR blaNDM Car Res Gene PCR OXA-48 Carbapenem Resis Gene (PCR) blaVIM Car Res Gene PCR CTX-M Gene Resistance (PCR) [facility] Medical History Acne Acute on chronic urinary retention Anemia Ankle pain Benign prostatic hyperplasia Chicken pox Congestive heart failure COPD exacerbation GERD (gastroesophageal reflux disease) History of nephrolithiasis History of prostate cancer History of urinary retention Hyperlipidemia Hypertension Impingement of both shoulders Left nephrolithiasis Measles Parkinson's disease Prostate cancer (~2010) Recurrent UTI Shoulder pain Tinea cruris Type 2 diabetes mellitus Urinary retention Urinary retention Surgical History Anesthesia History of knee surgery History of prostate biopsy Kidney stones S/P deep brain stimulator placement (11/2019) Family History Father Stroke Hypertension Bacterial UTI Mother Cancer Sister Hypertension Aunt Diabetes mellitus Uncle Kidney stones Social History marital status: number of children: 3 household members: spouse and children alcohol intake: never Type(s) of exercise: walking frequency: 1-2 times per week Assessment & Plan Time-Based Coding :: [TOTAL MINUTES] spent with patient and on the chart (including review of chart, obtaining history, exam, reviewing outside data, placing orders, documenting exam and treatment plan, and counseling patient) on [DATE].
[2024-12-17] MEDS: INSULIN LISPRO 100 UNIT/ML 3ML VIAL SUBCUT ×4 (08:30→20:29)
[2024-12-17] MEDS: INSULIN LISPRO 100 UNIT/ML 3ML VIAL 10 UNIT SUBCUT ×3 (08:31→17:18)
[2024-12-17] MEDS: ASPIRIN EC 81 MG TABLET PO (08:33)
[2024-12-17] MEDS: ATORVASTATIN 20 MG TABLET 10 MG PO (08:34)
[2024-12-17] MEDS: FINASTERIDE 5 MG TABLET PO (08:37)
[2024-12-17] MEDS: GABAPENTIN 100 MG CAPSULE PO ×3 (08:38→20:19)
[2024-12-17] MEDS: HEPARIN 5,000 UNIT/ML VIAL 5000 UNIT SUBCUT ×2 (08:38→20:19)
[2024-12-17] MEDS: INSULIN GLARGINE 100 UNIT/ML 3ML PEN 55 UNIT SUBCUT (08:42)
[2024-12-17] MEDS: TAMSULOSIN 0.4 MG CAPSULE PO (08:44)
[2024-12-17] MEDS: CARBIDOPA-LEVODOPA 25/100 TABLET 2.5 EACH PO ×3 (10:18→21:37)
--- NOTE | 2024-12-17 11:02 | PC.WOUNDPHOT ---
Would Photo 1)Skin tears to left elbow, band-aid applied 2)Buttocks, skin cleansed, two open areas, skin shearing, left open area approx 1 cm x 1 cm and the right open area 1 cm x 1.5 cm, mepilex dressing applied. Surrounding skin is nonblanchable. Offloading pressure.
[2024-12-17] MEDS: ALBUTEROL/IPRATROPIUM 3 ML AMPUL INH ×2 (13:09→19:30)
--- NOTE | 2024-12-17 17:55 | PC.NURSE ---
This RN observed all medication administrations done by SN Edwige Amor.
--- NOTE | 2024-12-17 17:56 | PC.NURSE ---
Day Shift Note Pt alert and oriented x3, mild forgetfulness noted in the morning but improved. Wheezes heard bilaterally, SpO2 upper 90s on RA, RR in the 20-30s, denies shortness of breath. Unable to lie flat. Denies pain. Up to chair for lunch, 2 person assist to stand and then 1 person assist with the FWW. 2 open areas to buttocks with nonblanchable erythema surrounding, see separate wound picture and note. Dr. Granado notified of stage 2 pressure injury. Bandaid placed to left elbow skin tears. Call light within reach, using appropraitely to make needs known. Bed alarm on.
[2024-12-17] MEDS: INSULIN GLARGINE 100 UNIT/ML 3ML PEN 60 UNIT SUBCUT (20:19)
[2024-12-18] VITALS (55 sets, daily range): BP systolic 117–192; BP diastolic 58–92; PULSE 61–91; RESP 10–33; TEMP 36.7–37; O2SAT 94–100
[2024-12-18] MEDS: methylPREDNISolone succ 125 MG/2 ML VIAL 80 MG IV ×3 (04:21→20:22)
[2024-12-18] MEDS: VANCOMYCIN 1,000 MG/200 ML PIGGYBACK 200 MG IV ×3 (04:21→20:22)
[2024-12-18] MEDS: CARBIDOPA-LEVODOPA 25/100 TABLET 3 EACH PO ×2 (05:59→13:35)
--- NOTE | 2024-12-18 06:20 | PC.NURSE ---
night time nanny RN note pt A&Ox3, slightly confused in am to place attempting to get out of bed, redirected well, bed alarm on, baseline tremors, lungs decreased with occasional wheezes, RA >92%, SOBOE with repositioning, states he does not like to lay flat, turned q2h, mepilex in place, meds and labs as ordered, care ongoing
[2024-12-18] MEDS: ALBUTEROL/IPRATROPIUM 3 ML AMPUL INH ×3 (07:55→17:59)
[2024-12-18] MEDS: LOSARTAN 50 MG TABLET PO ×2 (08:12→20:23)
[2024-12-18] MEDS: ATORVASTATIN 20 MG TABLET 10 MG PO (08:12)
[2024-12-18] MEDS: INSULIN GLARGINE 100 UNIT/ML 3ML PEN 60 UNIT SUBCUT ×2 (08:12→20:33)
[2024-12-18] MEDS: ASPIRIN EC 81 MG TABLET PO (08:12)
[2024-12-18] MEDS: FINASTERIDE 5 MG TABLET PO (08:13)
[2024-12-18] MEDS: HEPARIN 5,000 UNIT/ML VIAL 5000 UNIT SUBCUT ×2 (08:13→20:23)
[2024-12-18] MEDS: INSULIN LISPRO 100 UNIT/ML 3ML VIAL SUBCUT ×4 (08:13→20:36)
[2024-12-18] MEDS: GABAPENTIN 100 MG CAPSULE PO ×3 (08:13→20:43)
[2024-12-18] MEDS: TAMSULOSIN 0.4 MG CAPSULE PO (08:13)
[2024-12-18] MEDS: INSULIN LISPRO 100 UNIT/ML 3ML VIAL 10 UNIT SUBCUT ×3 (08:14→17:48)
[2024-12-18] MEDS: CARBIDOPA-LEVODOPA 25/100 TABLET 2.5 EACH PO ×3 (10:24→21:57)
[2024-12-18 11:41] LABS: Hematocrit 38.8 % (41-53); Hemoglobin 13.1 g/dL (13.5-17.5); Mean Corpuscular HGB Conc 33.9 % (30-36); Mean Corpuscular Hemoglobin 29.8 PG (26-34); Mean Corpuscular Volume 87.9 fL (80-100); Platelet Count 289 X10^3/uL (150-400)
[2024-12-18 12:10] LABS: Blood Urea Nitrogen 22 mg/dL (9-20); Calcium 8.9 mg/dL (8.4-10.2); Carbon Dioxide 19 mmol/L (22-32); Chloride 104 mmol/L (98-107); Estimated Glomerular Filt Rate > 60 mL/min (>60); Glucose 179 mg/dL (70-99); HEMOLYSIS < 15 (0-50); Potassium 3.6 mmol/L (3.4-5.1); Sodium 136 mmol/L (137-145)
[2024-12-18] MEDS: DOCUSATE 100 MG CAPSULE PO ×2 (13:35→20:23)
--- NOTE | 2024-12-18 13:35 | PM.PN.1 ---
Subjective Subjective Interval history: Summary: 12/16: The patient demonstrates increasing respiratory distress with abdominal breathing pattern over the course of the morning. He is transferred to the ICU for BiPAP therapy. Impression: COPD exacerbation Plan: -transfer to ICU -add IV methylprednisolone 80 mg every 8 hours -BiPAP per RT protocol Blood cultures show Gram-positive cocci with PCR ID showing MRSA. Impression: Possible MRSA bacteremia versus contamination Plan: -IV vancomycin -follow blood cultures -if only 1/2 positivity, consider as a possible contaminant and not a pathogen 12/17: Felling better, no dyspnea or fevers. S: He feels little more short of breath and not as good as yesterday. He denies any focal pain. O: VSS. Somewhat uncomfortable in appearance, riding. He does appear, somewhat short of breath. Lungs are generally clear with regular rate. This is typical in appearance for him when he was having difficulties with his breathing. Heart is regular Abdomen is distended, soft 1+ bilateral leg edema A/P: 1. COPD exacerbation. Active. 2. Acute respiratory failure with hypoxemia. Improved. 3. Elevated lactic acid. Improved. 4. Diabetes mellitus, type 2. Continue insulin glargine, sliding scale coverage and diabetic diet. Consider restarting metformin tomorrow. 5. Hypertension. Monitor blood pressure and resume home medication accordingly. 6. Hyperlipidemia. Continue home statin. 7. BPH with chronic suprapubic catheter. Continue home medication. 8. Parkinson's disease. Continue routine home medication. 9. One of 2 blood cultures positive for GPC, consistent with contaminant. Continue to monitor cultures. PLAN: -placed back on BiPAP for the afternoon as he does not appear to be in more distress. -we will continue general treatment measures aimed at COPD exacerbation. -ongoing glucose control. He requires another midnight of care in the hospital. Supports inpatient status. Exam Vital Signs (past 8 hours): - 12/18/24 06:00 12/18/24 06:30 12/18/24 07:00 Temperature 98.6 F Pulse Rate 73 74 Respiratory Rate Blood Pressure Pulse Oximetry 96 98 Oxygen Delivery Method Oxygen Flow Rate 12/18/24 07:00 12/18/24 07:28 12/18/24 07:28 Temperature Pulse Rate 79 77 Respiratory Rate Blood Pressure 169/79 H Pulse Oximetry 98 98 Oxygen Delivery Method Oxygen Flow Rate 12/18/24 07:46 12/18/24 08:00 12/18/24 08:35 Temperature Pulse Rate 80 71 Respiratory Rate 16 Blood Pressure Pulse Oximetry 98 99 Oxygen Delivery Method Room Air Room Air Oxygen Flow Rate 0 Fraction of Inspired Oxygen 21 SaO2/FiO2 Ratio 471 Oxygen Delivery Method Room Air Oxygen Flow Rate 0 Objective Labs 12/18/24 11:30 12/18/24 11:30 Labs: Laboratory Results - last 24 hr 12/17/24 12/17/24 12/17/24 16:47 16:50 19:54 WBC RBC Hgb Hct MCV MCH MCHC RDW Plt Count Sodium Potassium Chloride Carbon Dioxide BUN Creatinine Estimated GFR BUN/Creatinine Ratio Glucose POC Whole Bld Glucose 206 H 232 H Calcium Vancomycin Peak 18.0 L Vancomycin Trough 12/18/24 12/18/24 12/18/24 07:26 11:29 11:30 WBC 10.7 RBC 4.41 L Hgb 13.1 L Hct 38.8 L MCV 87.9 MCH 29.8 MCHC 33.9 RDW 15.4 H Plt Count 289 Sodium 136 L Potassium 3.6 Chloride 104 Carbon Dioxide 19 L BUN 22 H Creatinine 0.80 Estimated GFR > 60 BUN/Creatinine Ratio 27.5 H Glucose 179 H D POC Whole Bld Glucose 192 H 219 H Calcium 8.9 Vancomycin Peak Vancomycin Trough 12/18/24 12:45 WBC RBC Hgb Hct MCV MCH MCHC RDW Plt Count Sodium Potassium Chloride Carbon Dioxide BUN Creatinine Estimated GFR BUN/Creatinine Ratio Glucose POC Whole Bld Glucose Calcium Vancomycin Peak Vancomycin Trough 13.6 PFSH Medical History Acne Acute on chronic urinary retention Anemia Ankle pain Benign prostatic hyperplasia Chicken pox Congestive heart failure COPD exacerbation GERD (gastroesophageal reflux disease) History of nephrolithiasis History of prostate cancer History of urinary retention Hyperlipidemia Hypertension Impingement of both shoulders Left nephrolithiasis Measles Parkinson's disease Prostate cancer (~2010) Recurrent UTI Shoulder pain Tinea cruris Type 2 diabetes mellitus Urinary retention Urinary retention Surgical History Anesthesia History of knee surgery History of prostate biopsy Kidney stones S/P deep brain stimulator placement (11/2019) Family History Father Stroke Hypertension Bacterial UTI Mother Cancer Sister Hypertension Aunt Diabetes mellitus Uncle Kidney stones Social History marital status: number of children: 3 household members: spouse and children alcohol intake: never Type(s) of exercise: walking frequency: 1-2 times per week Assessment & Plan Time-Based Coding :: [TOTAL MINUTES] spent with patient and on the chart (including review of chart, obtaining history, exam, reviewing outside data, placing orders, documenting exam and treatment plan, and counseling patient) on [DATE].
--- NOTE | 2024-12-18 14:00 | OT.IPNOTE ---
RT just about to put bipap on pt and therefore check on pt tomorrow for OT eval.
--- NOTE | 2024-12-18 14:01 | PT-IP ANOTE ---
Pt discussed in rounds and PT consult received. PT checked in on pt who is up in chair and presenting SOB. RT nearby and getting ready to put pt back on BiPap. Will con't PT efforts next date.
--- NOTE | 2024-12-18 15:31 | CM.DPNOTE ---
DCP Continued: Reviewed EMR and team rounds for pt?s medical status. Per hospitalist, would benefit from continued coordination for discharge planning with PT/OT. Per RN, pt placed on BiPAP. Per PT/OT, patient not stable for evaluation today due to BiPAP. Will hold for next day. Plan: Anticipating home with home health when medically cleared, pending recommendations from PT/OT evaluations. CM Team will continue to follow for coordination of discharge plans. RED ChaviraSW
--- NOTE | 2024-12-18 19:37 | PC.NURSE ---
Day Shift Note Patient alert and oriented x3 at start of shift and able to shower, sitting in chair. At approx 1400 pt with increased confusion, delayed speech, and marked increase in tremors noted and placed on bipap per Dr. Granado. SpO2 upper 90s to 100%. 2 hours later pt is awake and requesting to be taken off bipap, ok per Dr. Granado, pt alert and oriented x3. Another episode of confusion with impulsiveness noted at 1810 and pt placed back on bipap, refused to go back to bed but tolerated in chair. Improvement in mentation noted within [address] Granado aware. Call light within reach, chair alarm on. Mepilex dressing to buttocks stage 2 perssure injury changed, repositioning self often in chair.
[2024-12-18] MEDS: ALBUTEROL 2.5 MG/3 ML NEB (ADULT) INH (22:12)
[2024-12-19] VITALS (42 sets, daily range): BP systolic 128–184; BP diastolic 68–100; PULSE 64–83; RESP 10–40; TEMP 36–36.3; O2SAT 96–100
--- NOTE | 2024-12-19 02:40 | RT ---
pt is altered refused nebulizer. Pt is wearing bipap intermitted through the night at one point he pulled the mask apart getting it off. continue to monitor him
[2024-12-19] MEDS: VANCOMYCIN 1,000 MG/200 ML PIGGYBACK 200 MG IV (05:17)
[2024-12-19] MEDS: methylPREDNISolone succ 125 MG/2 ML VIAL 80 MG IV ×2 (05:17→12:19)
[2024-12-19] MEDS: CARBIDOPA-LEVODOPA 25/100 TABLET 3 EACH PO ×2 (05:55→14:10)
--- NOTE | 2024-12-19 06:40 | PC.NURSE ---
shift manager RN note pt very restless and agitated, oriented to self and occasionally place, when helped up to chair with max 2 assist/gait belt/FWW pt trying to hit RNs with walker and grabbing at them, repeatedly attempting to get out bed, refusing bipap, at times he was combative when attempting to turn and reapply leads and bipap, tolerated bipap for about 2h total overnight, O2 sats >92%, when restless SOBOE with wheezing, MD aware of pt's behaviour, prn ativan given with mod effect, meds as ordered, bed alarm and chair alarm used, call melgar within reach, care ongoing
--- NOTE | 2024-12-19 08:07 | PM.PN.1 ---
Subjective Subjective Interval history: S: He was more calm today. He was on BiPAP this morning relatively comfortable. He did note some chest pain, which is new. Overnight events: THE PATIENT HAD A DIFFICULT NIGHT. HE WAS A LITTLE MORE AGITATED AND APPARENTLY SWINGING HIS WALKER AT PEOPLE. HE IS MORE SOMNOLENT THIS MORNING. O: VSS NAD, alert and oriented. Fluent speech. Lungs are clear, normal rate and effort. Heart is regular, no murmur gallop or rub. Abdomen is soft, non distended. Extremities are free of edema. IMAGIN. Chest x-ray 12/15/2024: No consolidations. 2. Chest CTA 12/15/2024: No pulmonary embolus. No acute cardiopulmonary process. A/P: 1. COPD exacerbation. Active. 2. Acute respiratory failure with hypoxemia. Improved. 3. Elevated lactic acid. Improved. 4. Diabetes mellitus, type 2. Continue insulin glargine, sliding scale coverage and diabetic diet. Consider restarting metformin tomorrow. 5. Hypertension. Monitor blood pressure and resume home medication accordingly. 6. Hyperlipidemia. Continue home statin. 7. BPH with chronic suprapubic catheter. Continue home medication. 8. Parkinson's disease. Continue routine home medication. 9. One of 2 blood cultures positive for GPC, consistent with contaminant. Continue to monitor cultures. PLAN: -placed back on BiPAP for the afternoon as he does not appear to be in more distress. -we will continue general treatment measures aimed at COPD exacerbation. -ongoing glucose control. -blood cultures 1 of 2 appeared to be consistent with contaminant. Stop vancomycin. -ECG nonacute, we will check to troponins. Given morphine for pain. He requires another midnight of care in the hospital. Supports inpatient status. Exam Vital Signs (past 8 hours): - 12/19/24 00:30 12/19/24 01:00 12/19/24 01:01 Pulse Rate 74 72 76 Respiratory Rate 40 H 24 34 H Blood Pressure Pulse Oximetry 100 100 99 12/19/24 01:01 12/19/24 01:19 12/19/24 01:30 Pulse Rate 72 76 Respiratory Rate 27 H 26 H Blood Pressure 182/100 H 160/97 H Pulse Oximetry 98 12/19/24 02:00 12/19/24 02:01 12/19/24 02:01 Pulse Rate 80 75 Respiratory Rate 30 H 33 H Blood Pressure 160/97 H Pulse Oximetry 98 98 12/19/24 02:30 12/19/24 03:00 12/19/24 03:04 Pulse Rate 72 73 71 Respiratory Rate 29 H 29 H 26 H Blood Pressure Pulse Oximetry 99 98 98 12/19/24 03:04 12/19/24 03:18 12/19/24 03:30 Pulse Rate 65 69 Respiratory Rate 30 H 28 H Blood Pressure 181/84 H Pulse Oximetry 96 12/19/24 04:00 12/19/24 04:00 12/19/24 04:30 Pulse Rate 68 64 Respiratory Rate 24 37 H Blood Pressure 166/77 H Pulse Oximetry 96 97 12/19/24 05:00 12/19/24 05:01 12/19/24 05:01 Pulse Rate 65 65 Respiratory Rate 25 H 25 H Blood Pressure 184/86 H Pulse Oximetry 97 97 12/19/24 05:30 12/19/24 06:00 12/19/24 06:01 Pulse Rate 64 64 64 Respiratory Rate 38 H 28 H 31 H Blood Pressure Pulse Oximetry 98 97 97 12/19/24 06:01 12/19/24 06:30 Pulse Rate 71 Respiratory Rate 37 H Blood Pressure 180/80 H Pulse Oximetry 98 Fraction of Inspired Oxygen 24 SaO2/FiO2 Ratio 471 Oxygen Delivery Method Room Air,BiPAP Oxygen Flow Rate 0 Objective Labs 12/18/24 11:30 12/18/24 11:30 Labs: Laboratory Results - last 24 hr 12/15/24 12/18/24 12/18/24 20:23 11:29 11:30 WBC 10.7 RBC 4.41 L Hgb 13.1 L Hct 38.8 L MCV 87.9 MCH 29.8 MCHC 33.9 RDW 15.4 H Plt Count 289 Sodium 136 L Potassium 3.6 Chloride 104 Carbon Dioxide 19 L BUN 22 H Creatinine 0.80 Estimated GFR > 60 BUN/Creatinine Ratio 27.5 H Glucose 179 H D POC Whole Bld Glucose 219 H Calcium 8.9 Vancomycin Peak Vancomycin Trough A.calcoaceticus-baumannii cmplx PCR Not detected Bacteroides fragilis Not detected Margarita albicans (PCR) Not detected Margarita auris (PCR) Not detected C. glabrata (PCR) Not detected C. krusei (PCR) Not detected C. parapsilosis (PCR) Not detected C. tropicalis (PCR) Not detected C. neoform/gattii (PCR) Not detected Enterobacterales (PCR) Not detected E. cloacae complex PCR Not detected Enterococc faecalis PCR Not detected Enterococc faecium PCR Not detected E. coli (PCR) Not detected H. influenzae (PCR) Not detected Klebsiella aerogenes (PCR) Not detected Klebsiella oxytoca PCR Not detected Klebsiella pneumoniae Not detected List. monocytogenes PCR Not detected N. meningitidis (PCR) Not detected Proteus species (PCR) Not detected Salmonella spp. (PCR) Not detected Serratia marcescens PCR Not detected Staphylococcus sp PCR Detected Staph aureus (PCR) Not detected mecA/C & MREJ Resist Gene Not applicable mecA/C-Methicil Resis Gene Detected mcr-1 Colistin Res Gene PCR Not applicable Staph epidermidis (PCR) Detected Staph lugdunensis PCR Not detected S. maltophilia (PCR) Not detected Streptococcus sp PCR Not detected Group A Strep (PCR) Not detected Strep agalactiae (PCR) Not detected Strep pneumoniae (PCR) Not detected P. aeruginosa (PCR) Not detected Cal/B-Vanco Res Genes Not applicable blaIMP Car res Gene PCR Not applicable KPC-Carbap Res Gene PCR Not applicable blaNDM Car Res Gene PCR Not applicable OXA-48 Carbapenem Resis Gene (PCR) Not applicable blaVIM Car Res Gene PCR Not applicable CTX-M Gene Resistance (PCR) Not applicable 12/18/24 12/18/24 12/18/24 12:45 15:17 17:18 WBC RBC Hgb Hct MCV MCH MCHC RDW Plt Count Sodium Potassium Chloride Carbon Dioxide BUN Creatinine Estimated GFR BUN/Creatinine Ratio Glucose POC Whole Bld Glucose 238 H Calcium Vancomycin Peak 32.3 Vancomycin Trough 13.6 A.calcoaceticus-baumannii cmplx PCR Bacteroides fragilis Margarita albicans (PCR) Margarita auris (PCR) C. glabrata (PCR) C. krusei (PCR) C. parapsilosis (PCR) C. tropicalis (PCR) C. neoform/gattii (PCR) Enterobacterales (PCR) E. cloacae complex PCR Enterococc faecalis PCR Enterococc faecium PCR E. coli (PCR) H. influenzae (PCR) Klebsiella aerogenes (PCR) Klebsiella oxytoca PCR Klebsiella pneumoniae List. monocytogenes PCR N. meningitidis (PCR) Proteus species (PCR) Salmonella spp. (PCR) Serratia marcescens PCR Staphylococcus sp PCR Staph aureus (PCR) mecA/C & MREJ Resist Gene mecA/C-Methicil Resis Gene mcr-1 Colistin Res Gene PCR Staph epidermidis (PCR) Staph lugdunensis PCR S. maltophilia (PCR) Streptococcus sp PCR Group A Strep (PCR) Strep agalactiae (PCR) Strep pneumoniae (PCR) P. aeruginosa (PCR) Cal/B-Vanco Res Genes blaIMP Car res Gene PCR KPC-Carbap Res Gene PCR blaNDM Car Res Gene PCR OXA-48 Carbapenem Resis Gene (PCR) blaVIM Car Res Gene PCR CTX-M Gene Resistance (PCR) 12/18/24 20:28 WBC RBC Hgb Hct MCV MCH MCHC RDW Plt Count Sodium Potassium Chloride Carbon Dioxide BUN Creatinine Estimated GFR BUN/Creatinine Ratio Glucose POC Whole Bld Glucose 342 H D Calcium Vancomycin Peak Vancomycin Trough A.calcoaceticus-baumannii cmplx PCR Bacteroides fragilis Margarita albicans (PCR) Margarita auris (PCR) C. glabrata (PCR) C. krusei (PCR) C. parapsilosis (PCR) C. tropicalis (PCR) C. neoform/gattii (PCR) Enterobacterales (PCR) E. cloacae complex PCR Enterococc faecalis PCR Enterococc faecium PCR E. coli (PCR) H. influenzae (PCR) Klebsiella aerogenes (PCR) Klebsiella oxytoca PCR Klebsiella pneumoniae List. monocytogenes PCR N. meningitidis (PCR) Proteus species (PCR) Salmonella spp. (PCR) Serratia marcescens PCR Staphylococcus sp PCR Staph aureus (PCR) mecA/C & MREJ Resist Gene mecA/C-Methicil Resis Gene mcr-1 Colistin Res Gene PCR Staph epidermidis (PCR) Staph lugdunensis PCR S. maltophilia (PCR) Streptococcus sp PCR Group A Strep (PCR) Strep agalactiae (PCR) Strep pneumoniae (PCR) P. aeruginosa (PCR) Cal/B-Vanco Res Genes blaIMP Car res Gene PCR KPC-Carbap Res Gene PCR blaNDM Car Res Gene PCR OXA-48 Carbapenem Resis Gene (PCR) blaVIM Car Res Gene PCR CTX-M Gene Resistance (PCR) [facility] Medical History Acne Acute on chronic urinary retention Anemia Ankle pain Benign prostatic hyperplasia Chicken pox Congestive heart failure COPD exacerbation GERD (gastroesophageal reflux disease) History of nephrolithiasis History of prostate cancer History of urinary retention Hyperlipidemia Hypertension Impingement of both shoulders Left nephrolithiasis Measles Parkinson's disease Prostate cancer (~2010) Recurrent UTI Shoulder pain Tinea cruris Type 2 diabetes mellitus Urinary retention Urinary retention Surgical History Anesthesia History of knee surgery History of prostate biopsy Kidney stones S/P deep brain stimulator placement (11/2019) Family History Father Stroke Hypertension Bacterial UTI Mother Cancer Sister Hypertension Aunt Diabetes mellitus Uncle Kidney stones Social History marital status: number of children: 3 household members: spouse and children alcohol intake: never Type(s) of exercise: walking frequency: 1-2 times per week Assessment & Plan Time-Based Coding :: [TOTAL MINUTES] spent with patient and on the chart (including review of chart, obtaining history, exam, reviewing outside data, placing orders, documenting exam and treatment plan, and counseling patient) on [DATE].
[2024-12-19] MEDS: ALBUTEROL/IPRATROPIUM 3 ML AMPUL INH ×3 (08:31→19:34)
[2024-12-19] MEDS: INSULIN LISPRO 100 UNIT/ML 3ML VIAL SUBCUT ×2 (10:21→12:14)
[2024-12-19] MEDS: INSULIN GLARGINE 100 UNIT/ML 3ML PEN 60 UNIT SUBCUT (10:21)
[2024-12-19] MEDS: HEPARIN 5,000 UNIT/ML VIAL 5000 UNIT SUBCUT ×2 (10:22→20:42)
--- NOTE | 2024-12-19 10:47 | EKG_ITS ---
[place] [id number] [place] [id number] Test Date: 2024-12-19 Pat Name: Sarbjit Mayen Department: [facility] Room: 228 Gender: Male Ostomy Care Nurse: : 1950 Requested By: Order Number: [id number] Reading MD: Ron Graham MD Measurements Intervals [place] Rate: 82 P: 43 NC: 144 QRS: -30 QRSD: 82 T: -13 QT: 390 QTc: 455 Interpretive Statements Sinus rhythm with premature atrial complexes with aberrant conduction Left axis deviation Minimal voltage criteria for LVH, may be normal variant ( R in aVL ) ST & T wave abnormality, consider inferior ischemia Electronically Signed On 12-19-2024 15:15:43 PST by Ron Graham MD
--- NOTE | 2024-12-19 11:00 | PT-IP ANOTE ---
Holding Physical Therapy evaluation today. Discussed case with his nurse. Pt is having chest pain and on Bipap at this time. Will check back tomorrow.
--- NOTE | 2024-12-19 11:00 | OT.IPNOTE ---
Per nursing hold therapy eval as pt having chest pain and on Bipap.
[2024-12-19] MEDS: MORPHINE 2 MG/ML INJ IV (11:13)
[2024-12-19] MEDS: SODIUM CHLORIDE 0.9% FLUSH 10 ML IV ×2 (11:14→20:44)
[2024-12-19] MEDS: INSULIN LISPRO 100 UNIT/ML 3ML VIAL 10 UNIT SUBCUT ×2 (12:14→17:30)
[2024-12-19] MEDS: CARBIDOPA-LEVODOPA 25/100 TABLET 2.5 EACH PO ×3 (12:15→21:42)
[2024-12-19] MEDS: ATORVASTATIN 20 MG TABLET 10 MG PO (12:16)
[2024-12-19] MEDS: ASPIRIN EC 81 MG TABLET PO (12:16)
[2024-12-19] MEDS: DOCUSATE 100 MG CAPSULE PO ×2 (12:17→20:42)
[2024-12-19] MEDS: FINASTERIDE 5 MG TABLET PO (12:17)
[2024-12-19] MEDS: GABAPENTIN 100 MG CAPSULE PO ×3 (12:19→20:42)
[2024-12-19] MEDS: TAMSULOSIN 0.4 MG CAPSULE PO (12:19)
[2024-12-19] MEDS: LOSARTAN 50 MG TABLET PO ×2 (12:19→20:43)
[2024-12-19 12:47] LABS: Troponin I 0.012 ng/mL (0.01-0.034)
[2024-12-19 19:27] LABS: Troponin I 0.019 ng/mL (0.01-0.034)
[2024-12-19] MEDS: methylPREDNISolone succ 125 MG/2 ML VIAL 40 MG IV (20:42)
[2024-12-20] VITALS (34 sets, daily range): BP systolic 100–164; BP diastolic 59–82; PULSE 63–94; RESP 18–50; TEMP 36.1–36.8; O2SAT 93–100
--- NOTE | 2024-12-20 05:17 | RT ---
pt on and off bipap all night pt is stable
[2024-12-20] MEDS: methylPREDNISolone succ 125 MG/2 ML VIAL 40 MG IV ×2 (05:56→12:39)
[2024-12-20] MEDS: CARBIDOPA-LEVODOPA 25/100 TABLET 3 EACH PO ×2 (05:57→14:11)
--- NOTE | 2024-12-20 06:27 | PC.NURSE ---
maintenance technician 2nd shift RN note pt more alert this evening, cooperative with care, forgetful at times but reorients quickly, rested well in bed all night, O2 sats >92%, mild wheezes throughout with exertion, abd soft with BS, no BM, suprapubic in place draining cloudy yellow urine, denied pain, meds as ordered, bed alarm on, call melgar within reach, care ongoing
[2024-12-20] MEDS: ALBUTEROL/IPRATROPIUM 3 ML AMPUL INH ×3 (08:41→18:29)
[2024-12-20 08:54] LABS: Hematocrit 40.5 % (41-53); Hemoglobin 13.9 g/dL (13.5-17.5); Mean Corpuscular HGB Conc 34.4 % (30-36); Mean Corpuscular Hemoglobin 29.9 PG (26-34); Mean Corpuscular Volume 86.8 fL (80-100); Platelet Count 269 X10^3/uL (150-400)
[2024-12-20 09:11] LABS: Blood Urea Nitrogen 27 mg/dL (9-20); Calcium 8.6 mg/dL (8.4-10.2); Carbon Dioxide 23 mmol/L (22-32); Chloride 109 mmol/L (98-107); Estimated Glomerular Filt Rate > 60 mL/min (>60); Glucose 56 mg/dL (70-99); HEMOLYSIS < 15 (0-50); Potassium 3.8 mmol/L (3.4-5.1); Sodium 139 mmol/L (137-145)
--- NOTE | 2024-12-20 10:31 | PC.NURSE ---
DR GROSS AT BEDSIDE. DISCUSSED PLAN OF CARE WITH PT. MADE MD AWARE OF DNR POLST FORM IN CHART BUT FULL CODE IN COMPUTER SYSTEM. STATES HE WILL ADDRESS.
--- NOTE | 2024-12-20 10:45 | OT.IP.EVAL ---
Current Diagnoses Chronic obstructive pulmonary disease with (acute) exacerbation (12/15/24) Past Medical History (Last Reviewed 12/16/24 @ 10:42 by Flavio Campa MD) Acne Acute on chronic urinary retention Anemia Ankle pain Benign prostatic hyperplasia Chicken pox Congestive heart failure COPD exacerbation GERD (gastroesophageal reflux disease) History of nephrolithiasis History of prostate cancer History of urinary retention Hyperlipidemia Hypertension Impingement of both shoulders Left nephrolithiasis Measles Parkinson's disease Prostate cancer (~2010) Recurrent UTI Shoulder pain Tinea cruris Type 2 diabetes mellitus Urinary retention Urinary retention Surgical History (Last Reviewed 12/16/24 @ 10:42 by Flavio Campa MD) Anesthesia History of knee surgery History of prostate biopsy Kidney stones S/P deep brain stimulator placement (11/2019) Occupational Therapy Inpatient Evaluation/Re-Eval M1 OT IP Prior Functional Status Start: 12/20/24 10:42 Freq: Status: Active Protocol: Document 12/20/24 10:42 [facility] (Rec: 12/20/24 10:58 [facility] Desktop) Medical Review Prior Functional Status Communication I Mobility and Gait Pt uses an Up walker at home, otherwise manual WC. Activities of Daily Pt assists pt for ADL needs form SBA to MAXA Living and IADL's depending how he is feeling. Pt's does all IADL needs. Social History Household Members spouse Living Arrangements House Number of Floors ( One Floor Floors) Number of Stairs To 1/2 step to enter the house. Enter/Railing? Home Environment Standard Height Toilet,Walk in Shower Home Equipment Shower Seat with Backrest,Hand Held Shower,Grab Bars Near Toilet,Grab Bars In Shower Additional Social Pt to this hospitalization, pt had home health and bath History Comment aid. M2 OT-IP Current Condition Start: 12/20/24 10:42 Freq: Status: Active Protocol: Document 12/20/24 10:42 [facility] (Rec: 12/20/24 10:58 [facility] Desktop) Occupational Therapy Current Condition Current Condition Evaluation Date 12/20/24 Treatment Diagnosis COPD exacerbation Diagnosis Onset Date 12/15/24 M3 OT- IP Subjective and Pain Start: 12/20/24 10:42 Freq: Status: Active Protocol: Document 12/20/24 10:42 [facility] (Rec: 12/20/24 10:58 [facility] Desktop) OT- Subjective Occupational Therapy Visit Type Type Initial Evaluation Visit Start Time 10:25 Visit Stop Time 10:40 Occupational Therapy Visit Comments Patient Comments Pt agreed to do OT eval. Patient/Caregiver TO go home. Goals OT Pain Assessment Pain When Pain Assessed At Rest Pain Present Pain Present Denied Pain M4 OT- IP ADL's Start: 12/20/24 10:42 Freq: Status: Active Protocol: Document 12/20/24 10:42 [facility] (Rec: 12/20/24 10:58 [facility] Desktop) OT [id number] Comments OT Self-Feeding Not at meal time. Comments OT ADL-Grooming Comments OT Grooming Comments Not performed. OT ADL-Oral Care Comments Oral Care Comments Not performed. OT ADL-Dressing General Eval Lower Body Dressing Maximum Assistance Ability Areas Needing Socks Assistance OT ADL-Toileting Comments OT Toileting Pt just did prior with nursing. Comments OT ADL-Bathing Comments OT Bathing Comments Pt will continue to benefit from bath aid at home. M5 OT- IP IADL's Start: 12/20/24 10:42 Freq: Status: Active Protocol: Document 12/20/24 10:42 [facility] (Rec: 12/20/24 10:58 [facility] Desktop) OT-Instrumental Activities of Daily Living Medication Management Medication Caregiver Administers Management Money Management Money Management Caregiver Provides Assistance Meal Preparation Meal Preparation Caregiver Provides Assist Manager International Manager International Caregiver Provides Assist M6 OT- IP Functional Cognition Start: 12/20/24 10:42 Freq: Status: Active Protocol: Document 12/20/24 10:42 [facility] (Rec: 12/20/24 10:58 [facility] Desktop) Cognitive Factors Limiting Selfcare Function Cognitive Ability Level of Alertness Alert Patient Orientation Name,Place,Situation Attention Span Capable of Focused Attention,Capable of Sustained Ability Attention Ability to Follow Able to Follow One Step Commands Commands Memory Description Short Term Impaired Cognitive Comments Cognitive Assessment Pt able to follow commands for mobility needs. Pt Comments needing vc for safety awareness to push the armrests of the FWW when coming to stand. OT- Vision and Hearing OT- Hearing Assessment OT- Hearing WFL Assessment OT- Vision Assessment Visual Acuity Glasses All The Time Visual Attentiveness WFL Occular Pursuits WFL M7 OT- IP Mobility and Balance Start: 12/20/24 10:42 Freq: Status: Active Protocol: Document 12/20/24 10:42 [facility] (Rec: 12/20/24 10:58 [facility] Desktop) OT-Transfer Assessment Sit to and From Stand Sit to and from Moderate Assistance Stand Comments Mobility Comments Pt able to come to stand with KRISTEN first time to FWW and then second time as tiring MOD A x1. OT- Balance Assessment Sitting Balance and Reactions Static Sitting Good Balance Ability Dynamic Sitting Fair Balance Ability Standing Balance and Reactions Static Standing Fair Balance Ability M8 OT- IP Objective Assessments Start: 12/20/24 10:42 Freq: Status: Active Protocol: Document 12/20/24 10:42 [facility] (Rec: 12/20/24 10:58 [facility] Desktop) OT Gross Range of Motion Upper Extremity Range of Motion Assessment Bilaterally Impaired ROM Impairments BUE shoulder flexion R 0-40, L 0-45. OT Strength Upper Extremity Strength Assessment Bilaterally Impaired M9 OT- IP Assessment and Plan Start: 12/20/24 10:42 Freq: Status: Active Protocol: Document 12/20/24 10:42 [facility] (Rec: 12/20/24 10:58 [facility] Desktop) OT Summary Assessment and Plan Potential Rehabilitation Fair Potential Analytic Complexity Moderate at Evaluation Summary OT Impairments Range of Motion,Strength,Balance,Functional Cognition, Functional Mobility,Self-Feeding,Grooming,Dressing, Toileting,Bathing,Toilet Transfers,Shower Transfers, Activity Tolerance Progress Towards Slow Progress due to Medical Issues,Slow Progress due Goals to Activity Tolerance Assessment Summary Pt MOD complexity and main barriers are decreased strength, activity tolerance, and needing assist for all ADL and mobility needs at this time. Pt states he feels 50% of his baseline at this time. Pt prefers to go home with his 30/08 assist and home health. Pending progress and 1/2 step, pt may need short skilled stay. Goals Self-Feeding Goal Standby Assistance Grooming Goal Standby Assistance Dressing Goal Moderate Assistance Toileting Goal Minimal Assistance Bathing Goal Moderate Assistance Toilet Transfer Goal Minimal Assistance Shower Transfer Goal Minimal Assistance Days to Meet Goals 10 Frequency of Treatment Other frequency 5x/week Treatment Plan OT Treatment Plan ADL Training,Functional Mobility,Patient/Family Education,Discharge Planning Other Treatment Pt to be able to walk with the FWW to and from the Recommendations and toilet with MIN/MODA x1. Next Treatment Focus Discharge Recommendations OT Discharge Home with 30/08 Assist Available,Home Health,Home vs SNF Recommendations Other Discharge Pt if able to go home will benefit from bath aid. Recommendations Transportation Needs Private Vehicle,Wheelchair/Cabulance at Discharge
[2024-12-20] MEDS: LOSARTAN 50 MG TABLET PO ×2 (10:55→20:53)
[2024-12-20] MEDS: TAMSULOSIN 0.4 MG CAPSULE PO (10:59)
[2024-12-20] MEDS: DOCUSATE 100 MG CAPSULE PO (10:59)
[2024-12-20] MEDS: GABAPENTIN 100 MG CAPSULE PO ×3 (11:00→20:54)
[2024-12-20] MEDS: ASPIRIN EC 81 MG TABLET PO (11:00)
[2024-12-20] MEDS: FINASTERIDE 5 MG TABLET PO (11:01)
[2024-12-20] MEDS: ATORVASTATIN 20 MG TABLET 10 MG PO (11:01)
[2024-12-20] MEDS: INSULIN GLARGINE 100 UNIT/ML 3ML PEN 55 UNIT SUBCUT ×2 (11:05→21:05)
[2024-12-20] MEDS: CARBIDOPA-LEVODOPA 25/100 TABLET 2.5 EACH PO ×3 (11:08→21:26)
[2024-12-20] MEDS: HEPARIN 5,000 UNIT/ML VIAL 5000 UNIT SUBCUT ×2 (11:11→20:55)
[2024-12-20] MEDS: SODIUM CHLORIDE 0.9% FLUSH 10 ML IV ×2 (11:45→20:53)
--- NOTE | 2024-12-20 12:30 | P.PN_ITS ---
Subjective Subjective Interval history: S: He feels little bit better, but remains profoundly weak. No dyspnea. Agitation this morning. O: VSS. NAD, alert and oriented. Fluent speech. Less writhing. Lungs are clear, normal rate and effort. Heart is regular, no murmur gallop or rub. Abdomen is soft, non distended. Extremities are free of edema. A/P: 1. COPD exacerbation. Improved. 2. Acute respiratory failure with hypoxemia. Improved. 3. Elevated lactic acid. Resolved. 4. Diabetes mellitus, type 2. Hyperglycemia secondary to steroids, improving with decreased dose of steroids. 5. Hypertension. Stable. 6. Hyperlipidemia. Stable. 7. BPH with chronic suprapubic catheter. Stable. 8. Parkinson's disease. Stable. 9. One of 2 blood cultures positive for GPC, consistent with contaminant. Resolved. PLAN: -continue to wean steroids and monitor mental status. -monitor breathing. -continue to work with Physical therapy for discharge planning. HEMALATHA: 1-2 days (home vs SNF). Exam Vital Signs (past 8 hours): - 12/20/24 07:00 12/20/24 07:30 12/20/24 07:45 Temperature Pulse Rate 63 63 Respiratory Rate 18 22 Blood Pressure Pulse Oximetry 100 100 Oxygen Delivery Method Room Air 12/20/24 08:00 12/20/24 08:08 12/20/24 08:08 Temperature 97.6 F Pulse Rate 63 63 Respiratory Rate 24 21 Blood Pressure 139/68 Pulse Oximetry 100 100 Oxygen Delivery Method 12/20/24 08:45 12/20/24 10:55 Temperature Pulse Rate 72 77 Respiratory Rate 20 Blood Pressure 162/76 H Pulse Oximetry 93 Oxygen Delivery Method Room Air Fraction of Inspired Oxygen 24 SaO2/FiO2 Ratio 476 Oxygen Delivery Method Room Air Oxygen Flow Rate 0 Objective Labs 12/20/24 08:28 12/20/24 08:28 Labs: Laboratory Results - last 24 hr 12/19/24 12/19/24 12/19/24 12:14 16:53 18:50 WBC RBC Hgb Hct MCV MCH MCHC RDW Plt Count Sodium Potassium Chloride Carbon Dioxide BUN Creatinine Estimated GFR BUN/Creatinine Ratio Glucose POC Whole Bld Glucose 93 D Calcium Troponin I 0.012 0.019 12/19/24 12/20/24 12/20/24 20:36 07:59 08:28 WBC 8.7 RBC 4.67 Hgb 13.9 Hct 40.5 L MCV 86.8 MCH 29.9 MCHC 34.4 RDW 15.4 H Plt Count 269 Sodium 139 Potassium 3.8 Chloride 109 H Carbon Dioxide 23 BUN 27 H Creatinine 0.77 Estimated GFR > 60 BUN/Creatinine Ratio 35.1 H Glucose 56 L D POC Whole Bld Glucose 143 H 87 Calcium 8.6 Troponin I 12/20/24 09:47 WBC RBC Hgb Hct MCV MCH MCHC RDW Plt Count Sodium Potassium Chloride Carbon Dioxide BUN Creatinine Estimated GFR BUN/Creatinine Ratio Glucose POC Whole Bld Glucose 157 H Calcium Troponin I [facility] Medical History Acne Acute on chronic urinary retention Anemia Ankle pain Benign prostatic hyperplasia Chicken pox Congestive heart failure COPD exacerbation GERD (gastroesophageal reflux disease) History of nephrolithiasis History of prostate cancer History of urinary retention Hyperlipidemia Hypertension Impingement of both shoulders Left nephrolithiasis Measles Parkinson's disease Prostate cancer (~2010) Recurrent UTI Shoulder pain Tinea cruris Type 2 diabetes mellitus Urinary retention Urinary retention Surgical History Anesthesia History of knee surgery History of prostate biopsy Kidney stones S/P deep brain stimulator placement (11/2019) Family History Father Stroke Hypertension Bacterial UTI Mother Cancer Sister Hypertension Aunt Diabetes mellitus Uncle Kidney stones Social History marital status: number of children: 3 household members: spouse alcohol intake: never Type(s) of exercise: walking frequency: 1-2 times per week Assessment & Plan Time-Based Coding :: [TOTAL MINUTES] spent with patient and on the chart (including review of chart, obtaining history, exam, reviewing outside data, placing orders, documenting exam and treatment plan, and counseling patient) on [DATE].
[2024-12-20] MEDS: INSULIN LISPRO 100 UNIT/ML 3ML VIAL SUBCUT ×3 (12:39→21:06)
[2024-12-20] MEDS: INSULIN LISPRO 100 UNIT/ML 3ML VIAL 10 UNIT SUBCUT ×2 (12:39→16:56)
--- NOTE | 2024-12-20 13:32 | DIET.CONS ---
Dietary Consultation Note Admission Date: 12/15/2024 21:37 Assessment: 74 y M admitted for COPD exacerbation. Dietitian screened for LOS. EMR reviewed. Pt with hx of T2DM, previously seen by DM educator, last A1c 7.1%. Some hyperglycemia secondary to steroid noted. Per hospitalist note, weaning dose of steroids. 100% PO intakes recorded, DFM reviewed. Ht: 165.1 cm Wt: 98 kg BMI: 40.0 UBW: 95-103 kg over past year Last BM: 12/16/24 (12/17/24 07:55) MNA: 12 Bob Score: 19 Diet: 12/16/24 Breakfast Carbohydrate Consistent Diet Diet Modifications: Carbohydrate level: Medium (3 CHO) Reflex DM orders: No Food Texture: Level 7 - Regular Liquid Consistency: Level 0 - Thin Nutrition Percent Meal Consumed 100% 12/20/24 09:06 Percent Meal Consumed 100% 12/19/24 18:20 Percent Meal Consumed 100% 12/18/24 18:00 Percent Meal Consumed 100% 12/18/24 14:02 Labs: RBC 4.67 X10^6/uL (4.5-5.9) 12/20/24 08:28 Hgb 13.9 g/dL (13.5-17.5) 12/20/24 08:28 Hct 40.5 % (41-53) L 12/20/24 08:28 Creatinine 0.77 mg/dL (0.66-1.25) 12/20/24 08:28 Lactate 1.9 mmol/L (0.7-2.1) 12/16/24 08:06 NT-Pro-B Natriuret Pep 417 pg/mL (<450) 12/15/24 19:35 Nutrition Diagnosis: none at this time Monitoring/Evaluations: BG Electronically Signed by: Zainab Berumen 12/20/24 13:32 Clinical Dietitian [address] [address]
--- NOTE | 2024-12-20 15:18 | PT.IIE ---
Current Diagnoses Chronic obstructive pulmonary disease with (acute) exacerbation (12/15/24) Surgical History (Last Reviewed 12/16/24 @ 10:42 by Flavio Campa MD) Anesthesia History of knee surgery History of prostate biopsy Kidney stones S/P deep brain stimulator placement (11/2019) Medical History (Last Reviewed 12/16/24 @ 10:42 by Flavio Campa MD) Acne Acute on chronic urinary retention Anemia Ankle pain Benign prostatic hyperplasia Chicken pox Congestive heart failure COPD exacerbation GERD (gastroesophageal reflux disease) History of nephrolithiasis History of prostate cancer History of urinary retention Hyperlipidemia Hypertension Impingement of both shoulders Left nephrolithiasis Measles Parkinson's disease Prostate cancer (~2010) Recurrent UTI Shoulder pain Tinea cruris Type 2 diabetes mellitus Urinary retention Urinary retention Physical Therapy Inpatient Evaluation/Re-Eval M1 PT IP Prior Functional Status Start: 12/20/24 14:22 Freq: NEEDED Status: Active Protocol: Document 12/20/24 14:22 [facility] (Rec: 12/20/24 15:18 [facility] [id number]) Medical Review Prior Functional Status Communication I Mobility and Gait Pt uses an Up walker at home, otherwise manual WC. Activities of Daily Pt assists pt for ADL needs form SBA to MAXA Living and IADL's depending how he is feeling. Pt's does all IADL needs. Social History Household Members spouse Living Arrangements House Number of Floors ( One Floor Floors) Number of Stairs To 1/2 step to enter the house. Enter/Railing? Home Environment Standard Height Toilet,Walk in Shower Home Equipment Shower Seat with Backrest,Hand Held Shower,Grab Bars Near Toilet,Grab Bars In Shower Additional Social Pt to this hospitalization, pt had home health and bath History Comment aid. M2 PT-IP Current Condition Start: 12/20/24 14:22 Freq: NEEDED Status: Active Protocol: Document 12/20/24 14:22 [facility] (Rec: 12/20/24 15:18 [facility] [id number]) Physical Therapy Current Condition Current Condition Evaluation Date 12/20/24 Treatment Diagnosis COPD M3 PT-IP Subjective Start: 12/20/24 14:22 Freq: NEEDED Status: Active Protocol: Document 12/20/24 14:22 [facility] (Rec: 12/20/24 15:18 [facility] [id number]) Subjective Physical Therapy Visit Type Type Initial Evaluation Visit Start Time 14:22 Visit Stop Time 14:45 Number of PROPERTY AND SUPPLY OFFICER Visits 0 Physical Therapy Visit Comments Patient Goals go home M4 PT-IP Mobility and Gait Start: 12/20/24 14:22 Freq: NEEDED Status: Active Protocol: Document 12/20/24 14:22 [facility] (Rec: 12/20/24 15:18 [facility] [id number]) PT-Transfer Assessment Sit to and From Stand Sit to and from Contact Guard Assistance,Minimal Assistance,Moderate Stand Assistance,Use of Upper Extremities Equipment Transfer Assistive Gait Belt,Front Wheeled Walker Device Orthotic/Prosthetic No Devices or Brace: Comments Mobility Comments pt seated in chair and did sit to stand mod A then sat in chair to rest after standing for about 1 min. O2 dropped to 85%. Pt stood again min A then amb around the bed 10ft slowly wcues for posture throughout. HE sat EOB with O2 dropped to 80% and max cues for pursed lip breathing and O2 >90 after about 10 sec. He stood from bed CGA then amb with FWW 10ft around bed to chair CGA with FWW. O2 dropped to 79% and within 20% to >90 after cues for breathing. Pt then did 6x sit to stand CGA w/cues scoot fwd and fwd lean to FWW. Pt edu on doing APs x10 and encouraged to do leg raises later when sitting/laying. Left with call light in reach and chair alarm on . Gait Assessment Gait Gait Assistance Contact Guard Assist Required: Distance (Feet) 20 Able to Maintain No Weight Bearing Status During Gait Assistive Devices Assistive Device Gait Belt,Front Wheeled Walker Orthotic/Prosthetic No Devices or Brace: Gait Deviations General Gait Pattern Decreased Stride Length,Decreased Feet Clearance Factors Limiting Gait Function Factors Limiting Decreased Activity Tolerance,Decreased Strength,Pain, Gait Function Poor Balance,Poor Safety Awareness PT-Balance Assessment Sitting Balance and Reactions Static Sitting Good Balance Ability Dynamic Sitting Good Balance Ability Standing Balance and Reactions Static Standing Poor Balance Ability Dynamic Standing Poor Balance Ability Device Used FWW M5 PT-IP Objective Assessments Start: 12/20/24 14:22 Freq: NEEDED Status: Active Protocol: Document 12/20/24 14:22 [facility] (Rec: 12/20/24 15:18 [facility] [id number]) Orientation Orientation/Cognition Level of Alertness Alert Language Function No Deficits Noted Ability Strength Lower Extremity Strength Hip 3+/5 Knee 4-/5 Ankle 4/5 M6 PT-IP Treatment Start: 12/20/24 14:22 Freq: NEEDED Status: Active Protocol: Document 12/20/24 14:22 [facility] (Rec: 12/20/24 15:18 [facility] [id number]) Physical Therapy Treatment Exercises Exercises Ankle Pumps Education Education Provided Safety M7 PT-IP Assessment and Plan Start: 12/20/24 14:22 Freq: NEEDED Status: Active Protocol: Document 12/20/24 14:22 [facility] (Rec: 12/20/24 15:18 [facility] [id number]) PT Summary Assessment and Plan Potential Rehabilitation Good Potential Status of Condition Evolving at Evaluation Summary Impairments Pain,ROM,Strength,Balance,Bed Mobility,Transfers,Gait, Activity Tolerance Assessment Summary Pt presents with COPD with significant weakness. He has overall weakness but with inc time during session and further cueing for mechanics, he improved and only required CGA. He is very determined to go home and does all ADLs. He would benefit from when returning home. Goals Bed Mobility Goal Standby Assistance Transfer Goal Standby Assistance Gait Goal Standby Assistance Gait Distance 150ft Days to Meet Goals 10 Frequency of Treatment Frequency Of Once a Day Treatment Treatment Plan Physical Therapy Bed Mobility Training,Transfer Training,Gait Training, Treatment Plan Therapeutic Exercise,Balance Retraining,Discharge Planning Other bed mobility work Recommendations and Next Treatment Focus Recommendations To Nursing Amount of Assist 1 Person Assist Needed Discharge Recommendations PT Discharge Home with 30/08 Assist Available,Home Health Recommendations Transportation Needs Private Vehicle at Discharge - PT assist 1
[2024-12-21] VITALS (45 sets, daily range): BP systolic 103–162; BP diastolic 60–92; PULSE 67–94; RESP 5–30; TEMP 32–36.7; O2SAT 89–100
[2024-12-21] MEDS: CARBIDOPA-LEVODOPA 25/100 TABLET 3 EACH PO ×2 (06:46→14:42)
--- NOTE | 2024-12-21 08:20 | PM.PN.1 ---
Subjective Subjective Interval history: Summary: 74-year-old male with severe Parkinson's, and insulin-dependent diabetes as well as COPD presented with shortness a breath. He initially had a lactic acidosis and a CT angiogram was negative for infiltrate or pulmonary embolism. He would deterioration of breathing and was transferred to the ICU and placed on BiPAP and started on IV steroids on the . Hospital course: 12/16: BiPAP and IV steroids. 12/17: Required nighttime BiPAP and some daytime BiPAP. One of 2 blood cultures positive for staph, ultimately a contaminant. 12/18: A little more short of breath after having some improvement on the afternoon of the . 1+ edema. Continued steroids at high dose and bronchodilators. 12/19: Had a difficult night and was agitated and swinging his walker at people. More somnolent this morning. Ongoing steroids and bronchodilators. Decrease dose of Medrol, hyperglycemia started improved from his initial dosing. 12/20: Morning agitation, overall somewhat better. Better breathing. S: He is doing well today. Less confused. No dyspnea. 14:00: More short of breath and on BiPAP for 1 hour. Had a long discussion regarding his Sinemet dosing with the in his . He also runs his brain stimulator on algorithm 2 but apparently we will occasionally switch it to 1 for unclear reasons. O: VSS. Less movement today. NAD, soft but fluent speech. Lungs are clear, diminished breath sounds globally and some prolonged expiratory phase. Heart is regular, no murmur. Abdomen is distended, soft. Legs are notable for minimal edema. He moves arms and legs spontaneously. IMAGING: CXR: No consolidations. Chest CTA: No pulmonary embolus. No acute cardiopulmonary process. A/P: 1. COPD exacerbation. Improved. 2. Acute respiratory failure with hypoxemia. Improved. 3. Elevated lactic acid. Resolved. 4. Diabetes mellitus, type 2. Hyperglycemia secondary to steroids, improving with decreased dose of steroids. 5. Hypertension. Stable. 6. Hyperlipidemia. Stable. 7. BPH with chronic suprapubic catheter. Stable. 8. Parkinson's disease. Stable. 9. One of 2 blood cultures positive for GPC, consistent with contaminant. Resolved. PLAN: -Stopped sterodis 12/20. -monitor breathing. BiPAP as needed. -continue to work with Physical therapy for discharge planning. -he was marginal performance with regard to breathing in his movement disorder on a good day. He continues to decline facility based care such as half-way facility. He lives with his . Exam Vital Signs (past 8 hours): - 12/21/24 04:00 Temperature 97.3 F L Pulse Rate 71 Respiratory Rate 22 Blood Pressure 155/92 H Pulse Oximetry 98 Fraction of Inspired Oxygen 24 SaO2/FiO2 Ratio 476 Oxygen Delivery Method Room Air Oxygen Flow Rate 0 Objective Labs 12/20/24 08:28 12/20/24 08:28 Labs: Laboratory Results - last 24 hr 12/20/24 12/20/24 12/20/24 08:28 09:47 12:28 WBC 8.7 RBC 4.67 Hgb 13.9 Hct 40.5 L MCV 86.8 MCH 29.9 MCHC 34.4 RDW 15.4 H Plt Count 269 Sodium 139 Potassium 3.8 Chloride 109 H Carbon Dioxide 23 BUN 27 H Creatinine 0.77 Estimated GFR > 60 BUN/Creatinine Ratio 35.1 H Glucose 56 L D POC Whole Bld Glucose 157 H 198 H Calcium 8.6 12/20/24 12/20/24 12/21/24 16:38 21:00 08:09 WBC RBC Hgb Hct MCV MCH MCHC RDW Plt Count Sodium Potassium Chloride Carbon Dioxide BUN Creatinine Estimated GFR BUN/Creatinine Ratio Glucose POC Whole Bld Glucose 365 H D 313 H 57 L D Calcium PFSH Medical History Acne Acute on chronic urinary retention Anemia Ankle pain Benign prostatic hyperplasia Chicken pox Congestive heart failure COPD exacerbation GERD (gastroesophageal reflux disease) History of nephrolithiasis History of prostate cancer History of urinary retention Hyperlipidemia Hypertension Impingement of both shoulders Left nephrolithiasis Measles Parkinson's disease Prostate cancer (~2010) Recurrent UTI Shoulder pain Tinea cruris Type 2 diabetes mellitus Urinary retention Urinary retention Surgical History Anesthesia History of knee surgery History of prostate biopsy Kidney stones S/P deep brain stimulator placement (11/2019) Family History Father Stroke Hypertension Bacterial UTI Mother Cancer Sister Hypertension Aunt Diabetes mellitus Uncle Kidney stones Social History marital status: number of children: 3 household members: spouse alcohol intake: never Type(s) of exercise: walking frequency: 1-2 times per week Assessment & Plan Time-Based Coding :: [TOTAL MINUTES] spent with patient and on the chart (including review of chart, obtaining history, exam, reviewing outside data, placing orders, documenting exam and treatment plan, and counseling patient) on [DATE].
--- NOTE | 2024-12-21 09:22 | OT.IP.TRT ---
Current Diagnoses Chronic obstructive pulmonary disease with (acute) exacerbation (12/15/24) Occupational Therapy Treatment Note M2 OT-IP Current Condition Start: 12/20/24 10:42 Freq: Status: Active Protocol: Document 12/20/24 10:42 [facility] (Rec: 12/20/24 10:58 [facility] Desktop) Occupational Therapy Current Condition Current Condition Evaluation Date 12/20/24 Treatment Diagnosis COPD exacerbation Diagnosis Onset Date 12/15/24 M3 OT- IP Subjective and Pain Start: 12/20/24 10:42 Freq: Status: Active Protocol: Document 12/21/24 09:22 [facility] (Rec: 12/21/24 09:29 [facility] Desktop) OT- Subjective Occupational Therapy Visit Type Type Treatment Note Visit Start Time 08:58 Visit Stop Time 09:22 Occupational Therapy Visit Comments Patient Comments Pt agreed to get up. Patient/Caregiver To go home. Goals OT Pain Assessment Pain When Pain Assessed At Rest Pain Present Pain Present Denied Pain M4 OT- IP ADL's Start: 12/20/24 10:42 Freq: Status: Active Protocol: Document 12/20/24 10:42 [facility] (Rec: 12/20/24 10:58 [facility] Desktop) OT [id number] Comments OT Self-Feeding Not at meal time. Comments OT ADL-Grooming Comments OT Grooming Comments Not performed. OT ADL-Oral Care Comments Oral Care Comments Not performed. OT ADL-Dressing General Eval Lower Body Dressing Maximum Assistance Ability Areas Needing Socks Assistance OT ADL-Toileting Comments OT Toileting Pt just did prior with nursing. Comments OT ADL-Bathing Comments OT Bathing Comments Pt will continue to benefit from bath aid at home. M5 OT- IP IADL's Start: 12/20/24 10:42 Freq: Status: Active Protocol: Document 12/20/24 10:42 [facility] (Rec: 12/20/24 10:58 [facility] Desktop) OT-Instrumental Activities of Daily Living Medication Management Medication Caregiver Administers Management Money Management Money Management Caregiver Provides Assistance Meal Preparation Meal Preparation Caregiver Provides Assist Propellant Assembler Propellant Assembler Caregiver Provides Assist M6 OT- IP Functional Cognition Start: 12/20/24 10:42 Freq: Status: Active Protocol: Document 12/21/24 09:22 [facility] (Rec: 12/21/24 09:29 [facility] Desktop) Cognitive Factors Limiting Selfcare Function Cognitive Ability Level of Alertness Alert Patient Orientation Name,Place,Situation Attention Span Capable of Focused Attention,Capable of Sustained Ability Attention Ability to Follow Able to Follow One Step Commands Commands Memory Description Short Term Impaired Safety Awareness Underestimates Need for Assistance Cognitive Comments Cognitive Assessment Pt is a bit impulsive at time and needing cues to slow Comments down. Reminders for proper body mechanics when coming to stand with the fww. M7 OT- IP Mobility and Balance Start: 12/20/24 10:42 Freq: Status: Active Protocol: Document 12/21/24 09:22 [facility] (Rec: 12/21/24 09:29 [facility] Desktop) OT-Transfer Assessment Sit to and From Stand Sit to and from Standby Assistance,Contact Guard Assistance Stand Transfers Transfer Ability Standby Assistance,Contact Guard Assistance Comments Mobility Comments CGA to close SBA to stand to the FWW and when on his feet CGA to close SBA . Pt able to walk with the FWW to and from the doorway which is similar distance of him walking to the kitchen at home. O2 on RA 100% and after getting up sit to stand x7 dropped to 88% for several seconds and then increased to 92% and after 20 seconds up to 97%. OT- Balance Assessment Sitting Balance and Reactions Static Sitting Good Balance Ability Dynamic Sitting Fair Balance Ability Standing Balance and Reactions Static Standing Fair Balance Ability Dynamic Standing Fair Balance Ability M8 OT- IP Objective Assessments Start: 12/20/24 10:42 Freq: Status: Active Protocol: Document 12/20/24 10:42 [facility] (Rec: 12/20/24 10:58 [facility] Desktop) OT Gross Range of Motion Upper Extremity Range of Motion Assessment Bilaterally Impaired ROM Impairments BUE shoulder flexion R 0-40, L 0-45. OT Strength Upper Extremity Strength Assessment Bilaterally Impaired M9 OT- IP Assessment and Plan Start: 12/20/24 10:42 Freq: Status: Active Protocol: Document 12/21/24 09:22 [facility] (Rec: 12/21/24 09:29 [facility] Desktop) OT Summary Assessment and Plan Potential Rehabilitation Fair Potential Analytic Complexity Moderate at Evaluation Summary OT Impairments Range of Motion,Strength,Balance,Functional Cognition, Functional Mobility,Self-Feeding,Grooming,Dressing, Toileting,Bathing,Toilet Transfers,Shower Transfers, Activity Tolerance Progress Towards Progressing Toward Goals Goals Assessment Summary Pt today feels that he is doing much better and at 75- 80% of his baseline. O2 on RA is 100% and drops to 88% after activities for several seconds and goes up to 93% and after 20 seconds up to 97%. Pt today needing from CGA to SBA with FWW and safety cues. Pt to go home with his with 24/7 available assist and home health and bath aid when medically stable. Goals Self-Feeding Goal Standby Assistance Grooming Goal Standby Assistance Dressing Goal Moderate Assistance Toileting Goal Minimal Assistance Bathing Goal Moderate Assistance Toilet Transfer Goal Standby Assistance Shower Transfer Goal Standby Assistance Days to Meet Goals 3 Treatment Plan OT Treatment Plan ADL Training,Functional Mobility,Patient/Family Education,Discharge Planning Discharge Recommendations OT Discharge Home with 24/7 Assist Available,Home Health Recommendations Transportation Needs Private Vehicle at Discharge
--- NOTE | 2024-12-21 09:51 | PC.NURSE ---
Addendum entered by Riley Villela RN 12/21/24 18:05: PT REMAINED ALERT/ORIENTED WITH INTERMITTENT BOUTS OF CONFUSION/ FORGETFULNESS. INCREASED CONFUSION/ SOB AROUND 1330. BIPAP PLACED ON PT AND MD NOTIFIED. PT REQUESTING TO TAKE OFF AROUND 1415. STATES HE FEELS LESS SOB. SPO2 REMAINS > 95%. DR GROSS BY TO SEE PATIENT X2. PT WORKED WITH PHYSICAL/ OCCUPATIONAL THERAPY. UP TO CHAIR/ BACK TO BED MULTIPLE TIMES DURING SHIFT. SEE NOTES REGARDING BLOOD SUGAR. PT EATING 100% OF MEALS. BACK IN CHAIR FOR DINNER. SUPRAPUBIC CATH DRAINING YELLOW URINE SEDIMENT. BRAIN STIMULATOR ON AND WITHIN 3 FT OF HEAD. CARE ONGOING, Addendum entered by Riley Villela RN 12/21/24 16:25: 1500 DR GROSS AT BEDSIDE TO ASSESS PATIENT/ SPEAK WITH . PATIENT C/O INCREASED TREMORS/ INCREASED SOB BUT STATES IT HAS IMPROVED AFTER BEING ON BIPAP. 99% ON ROOM AIR. HEART RATE APPEARS MILDY ELEVATED AT 92. ALL QUESTIONS ANSWERED BY MD. NO NEW ORDERS. CARE ONGOING. Original Note: 08 PATIENT BLOOD SUGAR 57. DISCUSSED WITH BHUPENDRA IN PHARMACY. PLAN TO RECHECK AND GIVE HUMALOG 10 UNITS AND GLARGINE 55 UNITS AFTER PATIENT EATS/ BLOOD SUGAR IMPROVED. ORDERS ADJUSTED. 0942 BLOOD SUGAR 94 AT 0830 AND 126 AT 0941. DISCUSSED PLAN WITH BHUPENDRA. PLAN TO HOLD 10 UNITS OF MEAL TIME HUMALOG AND GIVE 55 UNITS GLARGINE.
[2024-12-21] MEDS: CARBIDOPA-LEVODOPA 25/100 TABLET 2.5 EACH PO ×3 (10:05→21:03)
[2024-12-21] MEDS: GABAPENTIN 100 MG CAPSULE PO ×3 (10:07→20:48)
[2024-12-21] MEDS: FINASTERIDE 5 MG TABLET PO (10:09)
[2024-12-21] MEDS: TAMSULOSIN 0.4 MG CAPSULE PO (10:09)
[2024-12-21] MEDS: ASPIRIN EC 81 MG TABLET PO (10:09)
[2024-12-21] MEDS: DOCUSATE 100 MG CAPSULE PO (10:10)
[2024-12-21] MEDS: ATORVASTATIN 20 MG TABLET 10 MG PO (10:10)
[2024-12-21] MEDS: LOSARTAN 50 MG TABLET PO ×2 (10:12→20:48)
[2024-12-21] MEDS: HEPARIN 5,000 UNIT/ML VIAL 5000 UNIT SUBCUT ×2 (10:14→20:49)
[2024-12-21] MEDS: INSULIN GLARGINE 100 UNIT/ML 3ML PEN 55 UNIT SUBCUT (10:15)
[2024-12-21] MEDS: SODIUM CHLORIDE 0.9% FLUSH 10 ML IV ×2 (10:29→20:48)
--- NOTE | 2024-12-21 11:46 | PT.IPTN ---
Current Diagnoses Chronic obstructive pulmonary disease with (acute) exacerbation (12/15/24) Physical Therapy Treatment Note M2 PT-IP Current Condition Start: 12/20/24 14:22 Freq: NEEDED Status: Active Protocol: Document 12/21/24 11:25 SP (Rec: 12/21/24 12:35 SP [id number]) Physical Therapy Current Condition Current Condition Evaluation Date 12/20/24 Treatment Diagnosis COPD M3 PT-IP Subjective Start: 12/20/24 14:22 Freq: NEEDED Status: Active Protocol: Document 12/21/24 11:25 SP (Rec: 12/21/24 12:35 SP [id number]) Subjective Physical Therapy Visit Type Type Treatment Note Visit Start Time 11:25 Visit Stop Time 11:46 Number of FINE ARTS PACKER Visits 1 Physical Therapy Visit Comments Patient Comments Pt willing to work with therapy. Patient Goals Return home with to assist him, open to HHPT. M4 PT-IP Mobility and Gait Start: 12/20/24 14:22 Freq: NEEDED Status: Active Protocol: Document 12/21/24 11:25 SP (Rec: 12/21/24 12:35 SP [id number]) PT-Transfer Assessment Sit to and From Stand Sit to and from Contact Guard Assistance,1 Person Assistance,Use of Stand Upper Extremities Equipment Transfer Assistive Gait Belt,Front Wheeled Walker Device Orthotic/Prosthetic No Devices or Brace: Transfers Transfer Destination Chair Transfer Technique pt ambulated with FWW & 4WW Transfer Ability Level of Assist Contact Guard Assistance,Minimal Assistance Comments Mobility Comments Pt vitals pre mobility seated in chair 142/71 SaO2 99- 100% on RA, 97% on RA after standing mobility but noted increased respiratory rate. Pt completed gait around room with FWW CGA, heavy WB BUEs on FWW with good slow pacing approx 30 ft, Gait around room with 4WW CG-5%A for trunk support especially during turns due to forward trunk with RLE outside walker PAOLA, cues for upright proximity to 4WW with maintaining BLEs inside back wheels with increase foot clearance R>L and safety use of brake mgt L>R to support slower pacing. Pt was up in chair with call light in reach and chair alarm ( fall risk) donned before left. Gait Assessment Gait Gait Assistance Contact Guard Assist,Minimum Assistance,1 Person Assist Required: Distance (Feet) 60 Able to Maintain No Weight Bearing Status During Gait Assistive Devices Assistive Device Gait Belt,Front Wheeled Walker,4 Wheeled Walker Orthotic/Prosthetic No Devices or Brace: Gait Deviations General Gait Pattern Antalgic,Decreased Stride Length,Decreased Feet Clearance,Flexed Trunk,Wide Based Gait Factors Limiting Gait Function Factors Limiting Decreased Activity Tolerance,Decreased Strength, Gait Function Difficulty Following Directions,Poor Balance,Poor Safety Awareness,Respiratory Distress Comments Gait Comments see mobility comments Stair Climbing Assessment Evaluation Level of Assist On Standby Assistance,Contact Guard Assistance,Minimal Stairs Assistance Devices Stair Climbing Left Railing,Right Railing Assistive Devices Technique/Endurance Stair Climbing Ascend and Descend Direction Stair Climbing Step to Step Technique Number of Steps 1 Climbed Stair Climbing Set # 1 Repetitions (reps) Comments Stair Climbing Pt able to ascend fwd/descend backward 4 portable step Comments : firm BUE support required on counter and R handle near sink to assimulate door frame to get into house, CGA this tx. Pt PT-Balance Assessment Sitting Balance and Reactions Static Sitting Normal Balance Ability Dynamic Sitting Good Balance Ability Standing Balance and Reactions Static Standing Good Balance Ability Dynamic Standing Good Balance Ability Device Used FWW, fair with 4WW M5 PT-IP Objective Assessments Start: 12/20/24 14:22 Freq: NEEDED Status: Active Protocol: Document 12/20/24 14:22 [facility] (Rec: 12/20/24 15:18 [facility] [id number]) Orientation Orientation/Cognition Level of Alertness Alert Language Function No Deficits Noted Ability Strength Lower Extremity Strength Hip 3+/5 Knee 4-/5 Ankle 4/5 M6 PT-IP Treatment Start: 12/20/24 14:22 Freq: NEEDED Status: Active Protocol: Document 12/21/24 11:25 SP (Rec: 12/21/24 12:35 SP [id number]) Physical Therapy Treatment Exercises Exercises Ankle Pumps,Seated Knee Flexion/Extension Education Education Provided Safety M7 PT-IP Assessment and Plan Start: 12/20/24 14:22 Freq: NEEDED Status: Active Protocol: Document 12/21/24 11:25 SP (Rec: 12/21/24 12:35 SP [id number]) PT Summary Assessment and Plan Potential Rehabilitation Good Potential Status of Condition Evolving at Evaluation Summary Impairments Pain,ROM,Strength,Balance,Bed Mobility,Transfers,Gait, Activity Tolerance Progress Towards Progressing Toward Goals,Slow Progress due to Activity Goals Tolerance Assessment Summary Pt presents with COPD improved vitals this tx WNLs, CGA STS and gait around room with FWW, CG-5%A with cues for safety managament pacing, brake mgt, proximity to 4WW. HPT is ok to return home with to assist him as has in the past, PLOF. He would benefit from HHPT when returning home. Goals Bed Mobility Goal Standby Assistance Transfer Goal Standby Assistance Gait Goal Standby Assistance Gait Distance 150ft Days to Meet Goals 10 Frequency of Treatment Frequency Of Once a Day Treatment Treatment Plan Physical Therapy Bed Mobility Training,Transfer Training,Gait Training, Treatment Plan Therapeutic Exercise,Balance Retraining,Discharge Planning Other bed mobility, transfers with 4WW to assimulate use of Recommendations and upright walking using home further distances. Next Treatment Focus Precautions Other Precautions falls Recommendations To Nursing Amount of Assist 1 Person Assist Needed Discharge Recommendations PT Discharge Home with 30/08 Assist Available,Home Health Recommendations Transportation Needs Private Vehicle at Discharge - PT assist 1
[2024-12-21] MEDS: ALBUTEROL/IPRATROPIUM 3 ML AMPUL INH ×2 (13:02→19:51)
[2024-12-21] MEDS: INSULIN LISPRO 100 UNIT/ML 3ML VIAL SUBCUT ×3 (17:14→21:00)
--- NOTE | 2024-12-21 18:01 | P.PN_ITS ---
Subjective Subjective Interval history: 73 yo male w/advanced parkinson's disease s/p DBS, w/c bound, hx of prostate cancer, s/p suprapubic cath placement for urinary retention (08/2023), hx of recurrent UTIs, s/p PPM, DM2, HTN, CHF, HLD who was admitted w/COPD exacerbation and acute hypoxic respiratory failure. Last Echo revealed an LVEF 60-65%. Patient reports that he has feeling a little bit better each day. He states he was able to sleep last night fairly well. He denies any constipation. He has declined transfer to a prison facility for rehab. Exam Vital Signs (past 8 hours): - 12/21/24 10:12 12/21/24 10:30 12/21/24 11:00 Temperature Pulse Rate 73 74 75 Respiratory Rate 23 30 H Blood Pressure 122/60 Pulse Oximetry 100 100 Oxygen Delivery Method Fraction of Inspired Oxygen 12/21/24 11:30 12/21/24 11:31 12/21/24 11:32 Temperature Pulse Rate 76 76 Respiratory Rate 25 H 26 H Blood Pressure 142/71 H Pulse Oximetry 99 100 Oxygen Delivery Method Fraction of Inspired Oxygen 12/21/24 11:38 12/21/24 12:00 12/21/24 12:00 Temperature 97.4 F L Pulse Rate 77 75 Respiratory Rate 19 Blood Pressure Pulse Oximetry 99 98 Oxygen Delivery Method Fraction of Inspired Oxygen 12/21/24 13:00 12/21/24 13:02 12/21/24 13:18 Temperature Pulse Rate 80 84 Respiratory Rate 23 16 Blood Pressure 162/71 H Pulse Oximetry 100 100 Oxygen Delivery Method Room Air Fraction of Inspired Oxygen 24 12/21/24 14:00 12/21/24 15:00 12/21/24 16:00 Temperature Pulse Rate 93 H 93 H 94 H Respiratory Rate 27 H 22 20 Blood Pressure Pulse Oximetry 99 99 99 Oxygen Delivery Method Fraction of Inspired Oxygen 12/21/24 16:07 12/21/24 16:07 12/21/24 16:11 Temperature 97.6 F Pulse Rate 92 H Respiratory Rate 21 Blood Pressure 103/62 Pulse Oximetry 99 Oxygen Delivery Method Fraction of Inspired Oxygen 12/21/24 16:37 Temperature Pulse Rate Respiratory Rate Blood Pressure Pulse Oximetry 96 Oxygen Delivery Method Room Air Fraction of Inspired Oxygen Fraction of Inspired Oxygen 24 SaO2/FiO2 Ratio 476 Oxygen Delivery Method Room Air Oxygen Flow Rate 0 Narrative Exam Narrative: GEN: Elderly male, appears chronically ill, Alert and oriented x 2-3, NAD HEENT:NC, Face symmetric CHEST: Respiratory excursions symmetric, mild diffuse expiratory wheezes heard posteriorly throughout CV: RRR, no M/R/G ABD: Soft, obese, NT/ND, BT present in all 4 quadrants, body habitus limits exam EXTR: warm, well perfused, no C/C/E SKIN: warm and dry, no rash NEURO: Alert and oriented x 3, nonfocal Objective Labs 12/22/24 04:16 12/22/24 04:16 Labs: Laboratory Results - last 24 hr 12/20/24 12/21/24 12/21/24 21:00 08:09 08:30 POC Whole Bld Glucose 313 H 57 L D 94 Vancomycin Trough 12/21/24 12/21/24 12/21/24 09:41 11:50 12:47 POC Whole Bld Glucose 126 H 100 H Vancomycin Trough < 5.0 L 12/21/24 16:48 POC Whole Bld Glucose 223 H D Vancomycin Trough PFSH Medical History Acne Acute on chronic urinary retention Anemia Ankle pain Benign prostatic hyperplasia Chicken pox Congestive heart failure COPD exacerbation GERD (gastroesophageal reflux disease) History of nephrolithiasis History of prostate cancer History of urinary retention Hyperlipidemia Hypertension Impingement of both shoulders Left nephrolithiasis Measles Parkinson's disease Prostate cancer (~2010) Recurrent UTI Shoulder pain Tinea cruris Type 2 diabetes mellitus Urinary retention Urinary retention Surgical History Anesthesia History of knee surgery History of prostate biopsy Kidney stones S/P deep brain stimulator placement (11/2019) Family History Father Stroke Hypertension Bacterial UTI Mother Cancer Sister Hypertension Aunt Diabetes mellitus Uncle Kidney stones Social History marital status: number of children: 3 household members: spouse alcohol intake: never Type(s) of exercise: walking frequency: 1-2 times per week Assessment & Plan Assessment & Plan narrative: 1. COPD exacerbation. Improved. He has been on room air over the last couple of days. He remains off of steroids as it was felt steroids were increasing his agitation. Continue nebulizer treatment. Continue increasing activity as tolerated. 2. Acute respiratory failure with hypoxemia. Resolved. As noted he is now stable on room air. 3. Diabetes mellitus, type 2. Hyperglycemia secondary to steroids, improved off steroids. Blood sugars have ranged from 67-262 in the last 24 hours. He is receiving 55 units of Lantus in the morning, 30 units at bedtime. He is also receiving lispro 5 units with lunch and dinner. Remains on sliding scale. 4. Parkinson's Disease Continues usual dosing of carbidopa levodopa. Has a deep brain stimulator in place. Appreciate Physical therapy working with patient. Chronic and Stable: HTN HLD BPH w/chronic SP Cath Code status Full Prophy Heparin Dispo Pt declines SNF. Will DC Home w/HH at DC. Anticipate discharge home tomorrow. Discussed care with patient's spouse who is at bedside Resolved issues: Lactic acidosis Bacteremia - GPC - contaminant Time-Based Coding :: [TOTAL MINUTES] spent with patient and on the chart (including review of chart, obtaining history, exam, reviewing outside data, placing orders, documenting exam and treatment plan, and counseling patient) on [DATE].
[2024-12-21] MEDS: INSULIN GLARGINE 100 UNIT/ML 3ML PEN 40 UNIT SUBCUT (20:59)
[2024-12-22] VITALS (41 sets, daily range): BP systolic 107–202; BP diastolic 59–98; PULSE 64–96; RESP 9–28; TEMP 36.1–36.8; O2SAT 83–100
[2024-12-22 05:00] LABS: Add Manual Diff / Slide Review NO; Hematocrit 40.1 % (41-53); Hemoglobin 13.7 g/dL (13.5-17.5); Lymphocytes Absolute Auto 1900 /uL (1100-4500); Mean Corpuscular HGB Conc 34.2 % (30-36); Mean Corpuscular Hemoglobin 29.6 PG (26-34); Mean Corpuscular Volume 86.6 fL (80-100); Platelet Count 231 X10^3/uL (150-400)
[2024-12-22 05:14] LABS: Blood Urea Nitrogen 23 mg/dL (9-20); Calcium 9.0 mg/dL (8.4-10.2); Carbon Dioxide 23 mmol/L (22-32); Chloride 109 mmol/L (98-107); Estimated Glomerular Filt Rate > 60 mL/min (>60); Glucose 60 mg/dL (70-99); HEMOLYSIS 15 (0-50); Potassium 3.6 mmol/L (3.4-5.1); Sodium 139 mmol/L (137-145)
[2024-12-22] MEDS: CARBIDOPA-LEVODOPA 25/100 TABLET 3 EACH PO ×2 (07:20→14:38)
[2024-12-22] MEDS: ALBUTEROL/IPRATROPIUM 3 ML AMPUL INH ×3 (07:34→19:03)
[2024-12-22] MEDS: LOSARTAN 50 MG TABLET PO ×2 (09:31→21:02)
[2024-12-22] MEDS: DOCUSATE 100 MG CAPSULE PO (09:31)
[2024-12-22] MEDS: FINASTERIDE 5 MG TABLET PO (09:31)
[2024-12-22] MEDS: TAMSULOSIN 0.4 MG CAPSULE PO (09:32)
[2024-12-22] MEDS: ATORVASTATIN 20 MG TABLET 10 MG PO (09:32)
[2024-12-22] MEDS: ASPIRIN EC 81 MG TABLET PO (09:32)
[2024-12-22] MEDS: GABAPENTIN 100 MG CAPSULE PO ×3 (09:32→21:02)
[2024-12-22] MEDS: HEPARIN 5,000 UNIT/ML VIAL 5000 UNIT SUBCUT ×2 (09:33→21:02)
[2024-12-22] MEDS: CARBIDOPA-LEVODOPA 25/100 TABLET 2.5 EACH PO ×3 (09:33→21:01)
[2024-12-22] MEDS: INSULIN GLARGINE 100 UNIT/ML 3ML PEN 55 UNIT SUBCUT (09:34)
[2024-12-22] MEDS: SODIUM CHLORIDE 0.9% FLUSH 10 ML IV (09:34)
[2024-12-22 10:01] LABS: Allen Test for ABG Passed? Positive; Blood Gas Collection Site Left Radial; HCO3 ABG 22 mmol/L (23-27); Oxygen Saturation ABG 95 % (95-100); PCO2 ABG 29.1 mmHg (35-45); PO2 ABG 70 mmHg (80-100); TCO2 ABG 20 mmol/L (23-27)
[2024-12-22] MEDS: INSULIN LISPRO 100 UNIT/ML 3ML VIAL SUBCUT ×3 (12:13→17:07)
--- NOTE | 2024-12-22 13:17 | PC.NURSE ---
DR HUERTA IN TO SPEAK WITH PATIENT/ . PLAN TO DISCHARGE HOME TOMORROW. OK TO D/C TELE/ CONTINUOUS PULSE OX PER MD.
--- NOTE | 2024-12-22 14:06 | CM.DPC ---
DCP Cont: Per MD, pt with maybe slight somnolence this morning and increased grogginess for a short bit and labs checked and blood gas and appear normal range. Pt likely stable for discharge by tomorrow Tuesday. Per PT, worked with pt yesterday and appears close to baseline and recommend home with family assist and HH. SW met bedside with pt and spouse and explained role and they confirm preference remains home with family assist and ongoing [facility]. Spouse states she just wants to make sure he doesn't discharge too soon and end up right back in the hospital again. explained pt already here since 12/15 and making progress and likely ready for d/c tomorrow Tue. SW contacted [facility] and they confirm that they do not need new referral and orders but just discharge summary and Resumption Orders at d/c. RENATE Selby
--- NOTE | 2024-12-22 16:14 | PT.IPTN ---
Current Diagnoses Chronic obstructive pulmonary disease with (acute) exacerbation (12/15/24) Physical Therapy Treatment Note M2 PT-IP Current Condition Start: 12/20/24 14:22 Freq: NEEDED Status: Active Protocol: Document 12/21/24 11:25 SP (Rec: 12/21/24 12:35 SP [id number]) Physical Therapy Current Condition Current Condition Evaluation Date 12/20/24 Treatment Diagnosis COPD M3 PT-IP Subjective Start: 12/20/24 14:22 Freq: NEEDED Status: Active Protocol: Document 12/22/24 16:14 [facility] (Rec: 12/22/24 16:29 [facility] Desktop) Subjective Physical Therapy Visit Type Type Treatment Note Visit Start Time 15:40 Visit Stop Time 16:14 Notes 34 min Number of CANINE SERVICE INSTRUCTOR TRAINER Visits 0 Physical Therapy Visit Comments Patient Comments No complaints this visit. His is present and reports he has good days and bad days with his walking at home. She thinks he is walking okay today. Her only concern about discharge is if he is breathing okay. Patient Goals He wants to go home Therapy Pain Assessment Pain When Pain Assessed During Mobility Pain Present Pain Present Denied Pain M4 PT-IP Mobility and Gait Start: 12/20/24 14:22 Freq: NEEDED Status: Active Protocol: Document 12/22/24 16:14 [facility] (Rec: 12/22/24 16:29 [facility] Desktop) PT-Bed Mobility Assessment Supine to Sit Supine to Sit Minimal Assistance,Moderate Assistance,Bedrails Scooting Scooting to Edge of Standby Assistance Bed PT-Transfer Assessment Sit to and From Stand Sit to and from Contact Guard Assistance,Minimal Assistance,Use of Stand Upper Extremities Equipment Transfer Assistive Gait Belt,Front Wheeled Walker Device Transfers Transfer Destination Chair Transfer Technique Stand Step Pivot Transfer Ability Level of Assist Contact Guard Assistance,Minimal Assistance,Use of Upper Extremities Comments Mobility Comments Pt left up in recliner per his request. His is visiting. Chair alarm in use. Call light is close and pt instructed to have nursing assist to get back to bed . Gait Assessment Gait Gait Assistance Contact Guard Assist,Minimum Assistance Required: Distance (Feet) 60 Assistive Devices Assistive Device Gait Belt,Front Wheeled Walker Gait Deviations General Gait Pattern Decreased Stride Length,Decreased Feet Clearance Factors Limiting Gait Function Factors Limiting Decreased Activity Tolerance,Incoordination,Poor Gait Function Balance Comments Gait Comments He has general stiffness and rigidity this afternoon. He has more difficulty with right foot clearance in swing phase than left. He needs intermittent assist to manage the FWW in tight spaces in around obstacles. His pace is slow but functional. He ambulated in his room, took seated rest break then ambulated a second time into the [place]ura and back. PT-Balance Assessment Sitting Balance and Reactions Static Sitting Good Balance Ability Dynamic Sitting Good Balance Ability Standing Balance and Reactions Static Standing Good Balance Ability Dynamic Standing Fair Balance Ability Device Used FWW M5 PT-IP Objective Assessments Start: 12/20/24 14:22 Freq: NEEDED Status: Active Protocol: Document 12/20/24 14:22 [facility] (Rec: 12/20/24 15:18 [facility] [id number]) Orientation Orientation/Cognition Level of Alertness Alert Language Function No Deficits Noted Ability Strength Lower Extremity Strength Hip 3+/5 Knee 4-/5 Ankle 4/5 M6 PT-IP Treatment Start: 12/20/24 14:22 Freq: NEEDED Status: Active Protocol: Document 12/22/24 16:14 DLM (Rec: 12/22/24 16:29 DLM Desktop) Physical Therapy Treatment Exercises Exercises Ankle Pumps,Seated Knee Flexion/Extension Education Education Provided Safety Other Treatments Other Treatment seated he also performed active head turns to manage Performed his stiffness discussed discharge concerns with his M7 PT-IP Assessment and Plan Start: 12/20/24 14:22 Freq: NEEDED Status: Active Protocol: Document 12/22/24 16:14 [facility] (Rec: 12/22/24 16:29 DLM Desktop) PT Summary Assessment and Plan Summary Impairments Pain,ROM,Strength,Balance,Bed Mobility,Transfers,Gait, Activity Tolerance Progress Towards Progressing Toward Goals,Slow Progress due to Activity Goals Tolerance Assessment Summary Sarbjit is sleeping in bed this afternoon. He arouses easily but needs extra time to fully wake up for mobility. He has generalized stiffness this visit but it improved with exercises and mobility. He is on room air and his O2 sats 98-100% this visit. No significant shortness of breath noted nor does pt reports shortness of breath. His is present and observed treatment today. He is progressing slowly but well during this hospitalization. Continue to recommend home with his to assist and home health services. Goals Bed Mobility Goal Standby Assistance Transfer Goal Standby Assistance,Front Wheeled Walker Gait Goal Standby Assistance,Front Wheel Walker Gait Distance 150ft Days to Meet Goals 10 Frequency of Treatment Frequency Of Once a Day Treatment Treatment Plan Physical Therapy Bed Mobility Training,Transfer Training,Gait Training, Treatment Plan Therapeutic Exercise,Balance Retraining,Discharge Planning,Neuromuscular Re-ed,Coordination Retraining Other simulate upright walker use at home as able Recommendations and Next Treatment Focus Precautions Other Precautions fall risk, Parkinson's with deep brain stimulator Recommendations To Nursing Amount of Assist 1 Person Assist Needed Discharge Recommendations PT Discharge Home with 30/08 Assist Available,Home Health Recommendations Transportation Needs Private Vehicle at Discharge - PT assist 1
[2024-12-22] MEDS: INSULIN GLARGINE 100 UNIT/ML 3ML PEN 30 UNIT SUBCUT (21:13)
[2024-12-23] VITALS: BP 129/74; PULSE 61; RESP 22; O2SAT 96
[2024-12-23 04:00] VITALS: BP 136/75; PULSE 63; RESP 20; TEMP 36.7; O2SAT 98
[2024-12-23] MEDS: CARBIDOPA-LEVODOPA 25/100 TABLET 3 EACH PO (05:48)
[2024-12-23 08:00] VITALS: BP 96/47; PULSE 71; RESP 18; TEMP 36.5; O2SAT 98
[2024-12-23] MEDS: ALBUTEROL/IPRATROPIUM 3 ML AMPUL INH (09:12)
[2024-12-23 09:13] VITALS: PULSE 77; RESP 16; O2SAT 100
[2024-12-23] MEDS: CARBIDOPA-LEVODOPA 25/100 TABLET 2.5 EACH PO (09:33)
[2024-12-23] MEDS: SODIUM CHLORIDE 0.9% FLUSH 10 ML IV (09:34)
[2024-12-23] MEDS: TAMSULOSIN 0.4 MG CAPSULE PO (09:34)
[2024-12-23] MEDS: ASPIRIN EC 81 MG TABLET PO (09:35)
[2024-12-23] MEDS: FINASTERIDE 5 MG TABLET PO (09:35)
[2024-12-23] MEDS: GABAPENTIN 100 MG CAPSULE PO (09:35)
[2024-12-23] MEDS: ATORVASTATIN 20 MG TABLET 10 MG PO (09:35)
[2024-12-23] MEDS: INSULIN GLARGINE 100 UNIT/ML 3ML PEN 50 UNIT SUBCUT (09:36)
[2024-12-23 09:41] VITALS: BP 94/47; PULSE 69
[2024-12-23] MEDS: INSULIN LISPRO 100 UNIT/ML 3ML VIAL SUBCUT ×2 (12:04→12:05)
--- NOTE | 2024-12-23 13:08 | CM.DPC ---
DCP Discharge Home Per MD, pt's labs improved and back to baseline and medically stable to d/c home with spouse and continued Home Health today, no identified barriers to discharge. SW secure emailed pt's discharge summary and Resumption Orders to [facility] to review. Spouse bedside and pt taken down to spouse POV for d/c to home after RN provided discharge instructions. RENATE Selby
--- NOTE | 2024-12-23 20:58 | P.DS_ITS ---
History of Present Illness History of Present Illness Chief complaint: SOB Narrative: Per H&P: 74-year-old male with past medical history of insulin-dependent diabetes but also on metformin, hypertension, hyperlipidemia and BPH resents with complaint of shortness of breath. Per the patient's report, over the last few days, the patient has been having increasing shortness of breath with some wheezing. The patient however denies any fever, chills, nausea, vomiting, diarrhea, chest pain or syncope. The patient did try to take his inhalers at home without much improvement in his symptoms. In the emergency room, the patient was hemodynamically stable though was requiring a nonrebreather mask due to hypoxemia. CT angio of the chest shows no PE or pneumonia. The patient however did have a lactate of 5.3 but normal WBC and was afebrile. The patient was given Solu-Medrol, DuoNebs and empiric vancomycin and Zosyn after blood cultures were drawn. IV fluids were also given and repeat lactate came down to 3.5. Discharge Providers Provider Date of admission: 12/15/24 21:37 Discharge Date: 12/23/24 Primary care physician: Ravindra Goldsmith DO Consults: 12/15/24 21:26 Consult to Pharmacy Stat Comment: vancomycin dosing 12/15/24 23:25 Consult to Pharmacy Routine Comment: new admit 12/18/24 10:08 Consult to Occupational Therapy Evaluate & Treat Comment: Physician Instructions: Evaluate and treat Consult to Physical Therapy Evaluate & Treat Comment: Physician Instructions: Evaluate and Treat 12/23/24 13:07 Consult to Home Health Routine Comment: Respiratory failure, shortness of breath Reason For Exam: Resumption of [facility] for d/c to [facility] Discharge provider: Ann Reyes MD Summary Hospital Course Discharge Diagnosis: 1. COPD exacerbation, resolved 2. Acute hypoxic respiratory failure, resolved 3. Diabetes mellitus, type 2, insulin requiring 4. Steroid induced hyperglycemia, improving 5. Parkinson's disease, status post deep brain stimulator placement, stable 6. Hypertension, chronic, stable 7. Hyperlipidemia, chronic, stable 8. BPH with chronic suprapubic catheter, stable Hospital Course: 73 yo male w/advanced parkinson's disease s/p DBS, w/c bound, hx of prostate cancer, s/p suprapubic cath placement for urinary retention (08/2023), hx of recurrent UTIs, s/p PPM, DM2, HTN, CHF, HLD who was admitted w/COPD exacerbation and acute hypoxic respiratory failure. Last Echo revealed an LVEF 60-65%.He initially required BiPAP and IV steroids. He gradually was able to wean off of the BiPAP and was just using it at night and intermittently during the day. He then was able to completely wean off of the BiPAP completely. He did have a contaminated blood culture revealing a staph bacteria. No further intervention was necessary. He did develop increasing agitation on December 19. Steroids were decreased with some improvement. Gradually the steroids were weaned and ultimately discontinued. On December 22, patient was notably improved. He was doing well in room air with minimal wheezing. Also had significant clearing of his mentation. He was beginning to increase overall with his activity level and was tolerating being up at bedside. He was not quite ready for discharge. However, by the date discharge, he was back to his baseline mentation. He was much more active and engaged. Both he and his felt he was ready to go. He would declined care home facility and therefore was being discharged home with home health. He is discharged in stable condition. Status at Discharge Cognitive/behavioral status at discharge: at baseline, oriented Overall status at discharge: patient is progressing back to baseline Exam Vital Signs (past 8 hours): Fraction of Inspired Oxygen 21 SaO2/FiO2 Ratio 466 Oxygen Delivery Method Room Air Oxygen Flow Rate 0 Narrative Exam Narrative: GEN: Elderly male, appears chronically ill, Alert and oriented x 3, NAD HEENT:NC, Face symmetric CHEST: Respiratory excursions symmetric, coarse but clear bilaterally CV: RRR, no M/R/G ABD: Soft, obese, NT/ND, BT present in all 4 quadrants, body habitus limits exam EXTR: warm, well perfused, no C/C/E SKIN: warm and dry, no rash NEURO: Alert and oriented x 3, nonfocal Objective Labs 12/22/24 04:16 12/22/24 04:16 Labs: Laboratory Results - last 24 hr 12/22/24 12/23/24 12/23/24 21:11 07:45 11:51 POC Whole Bld Glucose 144 H 81 141 H PFSH Medical History Acne Acute on chronic urinary retention Anemia Ankle pain Benign prostatic hyperplasia Chicken pox Congestive heart failure COPD exacerbation GERD (gastroesophageal reflux disease) History of nephrolithiasis History of prostate cancer History of urinary retention Hyperlipidemia Hypertension Impingement of both shoulders Left nephrolithiasis Measles Parkinson's disease Prostate cancer (~2010) Recurrent UTI Shoulder pain Tinea cruris Type 2 diabetes mellitus Urinary retention Urinary retention Surgical History Anesthesia History of knee surgery History of prostate biopsy Kidney stones S/P deep brain stimulator placement (11/2019) Family History Father Stroke Hypertension Bacterial UTI Mother Cancer Sister Hypertension Aunt Diabetes mellitus Uncle Kidney stones Social History marital status: number of children: 3 household members: spouse alcohol intake: never Type(s) of exercise: walking frequency: 1-2 times per week Discharge Plan Discharge Plan Patient Disposition: Home Health Service Provider Discharge Comment: You were admitted with an exacerbation of your COPD. You have gradually improved over the course of your hospital stay. You have been stable off of oxygen and steroids for the last couple of days. You had struggled with some confusion which has gradually cleared and you have been back to your baseline mental status for the past 24 hours. You continued to be fairly weak and would benefit from ongoing therapy. As you do not wish to go to a care home facility for rehab, we are recommending that you have home health for physical and occupational therapy. Return to the ED: Increased shortness of breath/chest pain. Inability to hold down food/fluids/medications. Fevers/chills. Increased confusion Discharge orders & Medications Prescriptions: New albuterol sulfate 2.5 mg /3 mL (0.083 %) Solution For Nebulization 2.5 mg inhalation Q4H PRN (Reason: Shortness Of Breath) Qty: 90 0RF polyethylene glycol 3350 [Gavilax] 17 gram Powder In Packet 17 gm PO DAILY PRN (Reason: Constipation) Qty: 30 0RF polyethylene glycol 3350 [Gavilax] 17 gram Powder In Packet 17 gm PO DAILY Qty: 30 0RF docusate sodium 100 mg Capsule 100 mg PO BID Qty: 60 0RF Continued (DME) Comfort Touch Ult Thin Lancets 31 gauge misc See Rx Instructions .Route Qty: 100 2RF Rx Instructions: use to check blood sugars 1-2 times per day (DME) Blood Glucose Test Strip See Rx Instructions .Route Qty: 50 5RF Rx Instructions: use to check blood sugars 1-2 times per day (DME) blood-glucose meter [facility] [place] See Rx Instructions .Route Qty: 1 0RF Rx Instructions: use to check blood sugars 1-2 times per day metformin 850 mg tablet 850 mg PO TID Qty: 240 3RF ipratropium-albuterol 0.5 mg-3 mg(2.5 mg base)/3 mL solution for nebulization 3 ml inhalation Q6H PRN (Reason: shortness of breath or wheezing) Qty: 180 1RF omeprazole 20 mg capsule,delayed release(DR/EC) 20 mg PO DAILY Qty: 90 1RF losartan 50 mg tablet 50 mg PO BID Qty: 180 3RF gabapentin 100 mg capsule 100 mg PO 3XD Qty: 270 1RF potassium citrate 10 mEq (1,080 mg) tablet extended release 10 meq PO BID Qty: 180 1RF Renacidin 1,980.6 mg-59.4 mg-980.4mg/30mL solution 30 ml irrigation TID Qty: 900 3RF (DME) pen needle, diabetic [Reshma 2nd Gen Pen Needle] 32 gauge x 5/32 needle See Rx Instructions .ROUTE .COMPLEX Qty: 100 3RF Dose Instruction: Use to inject insulin two times daily Rx Instructions: Use to inject insulin two times daily finasteride 5 mg tablet 5 mg PO DAILY Qty: 90 3RF atorvastatin 10 mg tablet 10 mg PO DAILY Qty: 90 3RF potassium chloride 10 mEq tablet extended release 10 meq PO BID temazepam 15 mg capsule 15 mg PO BEDTIME PRN (Reason: sleep) timolol maleate 0.25 % drops 1 drp EYE-BOTH DAILY albuterol sulfate 2.5 mg /3 mL (0.083 %) solution for nebulization 2.5 mg inhalation QID Qty: 75 2RF nystatin 100,000 unit/gram powder 1 applic topical TID Qty: 15 3RF aspirin [Adult Low Dose Aspirin] 81 mg tablet,delayed release (DR/EC) 81 mg PO DAILY latanoprost 0.005 % drops 1 drp EYE-BOTH DAILY acetaminophen [Acetaminophen Extra Strength] 500 mg Tablet 500 mg PO Q6H PRN (Reason: Pain (Scale Score 4-6)) cranberry fruit 400 mg Capsule 400 mg PO DAILY Rx Instructions: administer with a meal carbidopa-levodopa 25-100 mg tablet See Rx Instructions .ROUTE .COMPLEX Patient Comments: extended release Rx Instructions: take 3 tabs at 0600, 2.5 tabs at 1000, 3 tabs at 1400, 2.5 tabs at 1800, 2.5 tabs at 2200 entacapone 200 mg Tablet 200 mg PO 5XD tamsulosin 0.4 mg capsule 0.4 mg PO DAILY amlodipine 5 mg tablet 10 mg PO DAILY insulin glargine [Lantus Solostar U-100 Insulin] 100 unit/mL (3 mL) insulin pen 125 unit SUBCUT BEDTIME Patient Comments: 75 UNITS IN THE MORNING AND 50 UNITS AT BEDTIME methenamine hippurate 1 gram tablet 1 g PO BID Qty: 180 3RF Discontinued albuterol sulfate 90 mcg/actuation HFA aerosol inhaler 1 puff inhalation Q4-6H Qty: 8.5 6RF ketoconazole 200 mg tablet 200 mg PO BID Qty: 20 1RF prednisone 10 mg tablet 20 mg PO DAILY Qty: 22 0RF Rx Instructions: administer with food or milk, take 4 tabs daily x 2 days, then 3 tabs daily x 2 days, then 2 tabs daily x 2 days, then 1 tab daily x 2 days Follow up/Referrals: Ravindra Goldsmith DO [Primary Care Provider, [facility]] Diet/Activity/Treatments Diet: Diet as Tolerated and Carb-consistent/Diabetic Catheter: Suprapubic Skin/Wound/Dressing Care Report to your healthcare provider any signs of infection, such as:: chills, fever, increased pain and unusual drainage Visit Report/Discharge Packet Stand Alone Forms: Patient Portal/API, Stroke Signs & Symptoms Discharge Data Primary Care Provider: Ravindra Goldsmith
== END 2024-12-23 12:43 | disposition home health service (06) | DRG 190 ==
LOC: ED 20:45 → AC 21:38 → ICU 12-16 13:05
PROVIDERS: Family Medicine; Hospitalist; Pharmacist Pharmacist Clinician (PhC)/ Clinical Pharmacy Specialist; Admitting Provider Internal Medicine; Emergency Provider Family Medicine; PCP Family Medicine; Referring Provider Family Medicine; Visit Provider Internal Medicine
DX: J44.1 Chronic obstructive pulmonary disease with (acute) exacerbation (principal); J96.01 Acute respiratory failure with hypoxia; E87.21 Acute metabolic acidosis; E78.5 Hyperlipidemia, unspecified; N40.0 Benign prostatic hyperplasia without lower urinary tract symptoms; G20.A1 Parkinson's disease without dyskinesia, without mention of fluctuations; E11.65 Type 2 diabetes mellitus with hyperglycemia; R45.1 Restlessness and agitation; K21.9 Gastro-esophageal reflux disease without esophagitis; I11.0 Hypertensive heart disease with heart failure; I50.9 Heart failure, unspecified; T38.0X5A Adverse effect of glucocorticoids and synthetic analogues, initial encounter; Z79.84 Long term (current) use of oral hypoglycemic drugs; Z96.0 Presence of urogenital implants; Z66 Do not resuscitate; Z79.4 Long term (current) use of insulin; Z99.3 Dependence on wheelchair; Z95.0 Presence of cardiac pacemaker; Z85.46 Personal history of malignant neoplasm of prostate; Z96.82 Presence of neurostimulator; Z87.891 Personal history of nicotine dependence
CPT/HCPCS: 36415; 36600; 71045; 71275; 80048; 80053; 80202; 82805; 82962; 83605; 83735; 83880; 84145; 84484; 85025; 85027; 85379; 87040; 87077; 87154; 93005; 94640; 94660; 94760; 96365; 96375; 97116; 97162; 97166; 97530; 99284; 99285; J1100; J1644; J1815; J2060; J2270; J2543; J2919; J3374; J3375; J7030; J7050; J7613; Q9967

== ENCOUNTER → 2025-01-10 16:51 | Outpatient (CLI) | payer MEDICARE, OTHER, SELFPAY ==
[2024-12-17 07:55] VITALS: BMI 40.0
[2024-12-21 13:18] VITALS: PULSE 83; RESP 30; O2SAT 100
[2025-01-10 17:12] LABS: Appearance Urine UA SL CLOUDY; Bilirubin Urine UA NEGATIVE (NEGATIVE); Color Urine UA YELLOW; Glucose Urine UA NEGATIVE (Negative); Ketones Urine UA TRACE (NEGATIVE); Leukocyte Esterase Urine UA 2+ (NEGATIVE); Nitrite Urine UA POSITIVE (Negative); Occult Blood Urine UA NEGATIVE (Negative); Protein Urine UA 1+ (Negative); Specific Gravity Urine UA 1.015 (1.000-1.035); Urobilinogen Urine UA 0.2 E.U./dL (0.2); pH Urine UA 6.0 (4.5-8.0)
[2025-01-10 17:22] LABS: Culture Indicated Urine Specimen Cultured
== END ==
PROVIDERS: PCP Family Medicine; Visit Provider Urology
DX: N30.00 Acute cystitis without hematuria (principal)
CPT/HCPCS: 81001; 87077; 87086

== ENCOUNTER 2025-01-12 16:41 | Emergency (ER) | payer MEDICARE, OTHER, SELFPAY ==
[2024-12-17 07:55] VITALS: BMI 40.0
[2024-12-21 13:18] VITALS: PULSE 83; RESP 30; O2SAT 100
[2025-01-12] VITALS (19 sets, daily range): BP systolic 109–160; BP diastolic 55–121; PULSE 80–101; RESP 20–33; TEMP 37.1; O2SAT 94–98; BMI 36.6
--- NOTE | 2025-01-12 17:10 | PC.NURSE ---
This RN called respiratory therapy who accessed this patient and talked to the physician
--- NOTE | 2025-01-12 19:06 | ED.WEAKNESS ---
HPI - Weakness General Chief complaint: Weakness Stated complaint: Parkinson Time Seen by Provider: 01/12/25 17:04 Source: EMS Mode of arrival: EMS History of Present Illness HPI Narrative: 74-year-old male with a history of Parkinson's disease presents with extreme weakness and muscle tightening in the past 3 days. Patient also has a history of COPD and is a type 2 diabetic. Recently saw his neurologist at [facility] Who increased his carbidopa levodopa to 4 times a day. He initially was doing fine for the 1st 2 days but then in the past 3 days started locking up again To the point of the paramedics being called and brought in here. Related Data Home Medications ?Medication ?Instructions ?Recorded ?Confirmed latanoprost 0.005 % eye drops 1 drp EYE-BOTH DAILY 06/02/22 01/12/25 aspirin 81 mg tablet,delayed 81 mg PO DAILY 10/21/22 01/12/25 release (Adult Low Dose Aspirin) acetaminophen 500 mg tablet 500 mg PO Q6H PRN Pain (Scale 04/03/23 01/12/25 (Acetaminophen Extra Strength) Score 4-6) carbidopa 25 mg-levodopa 100 mg See Rx Instructions .Route .COMPLEX 04/03/23 01/12/25 tablet cranberry fruit 400 mg capsule 400 mg PO DAILY 04/03/23 01/12/25 entacapone 200 mg tablet 200 mg PO 5XD 05/18/23 01/12/25 potassium chloride 10 mEq 10 meq PO BID 05/25/24 01/12/25 tablet,extended release temazepam 15 mg capsule 15 mg PO BEDTIME PRN sleep 05/25/24 01/12/25 timolol maleate 0.25 % eye drops 1 drp EYE-BOTH DAILY 05/25/24 01/12/25 amlodipine 5 mg tablet 10 mg PO DAILY 11/21/24 01/12/25 tamsulosin 0.4 mg capsule 0.4 mg PO DAILY 11/21/24 01/12/25 insulin glargine 100 unit/mL (3 125 unit SUBCUT BEDTIME 12/14/24 01/12/25 mL) subcutaneous pen (Lantus Solostar U-100 Insulin) carbidopa ER 50 mg-levodopa 200 mg 1 tab PO 4XD 01/12/25 01/12/25 tablet,extended release Previous Rx's ?Medication ?Instructions ?Recorded blood sugar diagnostic (Blood #50 ea 02/16/24 Glucose Test strips) blood-glucose meter #1 ea 02/16/24 lancets 31 gauge (Comfort Touch #100 ea 02/16/24 Ultra Thin Lancets) methenamine hippurate 1 gram tablet 1 g PO BID #180 tabs 04/27/24 metformin 850 mg tablet 850 mg PO TID #240 tabs 05/11/24 ipratropium 0.5 mg-albuterol 3 mg 3 ml inhalation Q6H PRN shortness 07/16/24 (2.5 mg base)/3 mL nebulization of breath or wheezing #180 mL soln omeprazole 20 mg capsule,delayed 20 mg PO DAILY #90 caps 07/26/24 release albuterol sulfate 2.5 mg/3 mL 2.5 mg (3 mL) inhalation QID #75 mL 07/27/24 (0.083 %) solution for nebulization gabapentin 100 mg capsule 100 mg PO 3XD #270 caps 08/14/24 losartan 50 mg tablet 50 mg PO BID #180 tabs 08/14/24 citric ac 1980.6 mg-glucono 59.4 30 ml irrigation TID #900 mL 08/29/24 mg-mag carb 980.4 mg/30 mL irrig.soln (Renacidin) pen needle, diabetic 32 gauge x #100 ea 10/11/24 (Reshma 2nd Gen Pen Needle) atorvastatin 10 mg tablet 10 mg PO DAILY #90 tabs 11/16/24 finasteride 5 mg tablet 5 mg PO DAILY #90 tabs 11/16/24 nystatin 100,000 unit/gram topical 1 applic topical TID #15 grams 12/14/24 powder albuterol sulfate 2.5 mg/3 mL 2.5 mg (3 mL) inhalation Q4H PRN 12/23/24 (0.083 %) solution for nebulization Shortness Of Breath #90 mL docusate sodium 100 mg capsule 100 mg PO BID #60 caps 12/23/24 polyethylene glycol 3350 17 gram 17 gm PO DAILY PRN Constipation 12/23/24 oral powder packet (Gavilax) #30 ea cephalexin 500 mg capsule 500 mg PO BID #14 caps 01/12/25 Allergies Allergy/AdvReac Type Severity Reaction Status Date / Time No Known Drug Allergies Allergy Verified 01/12/25 16:49 Review of Systems Review of Systems ROS Unobtainable: All systems reviewed & are unremarkable except as noted in HPI and below Patient History Medical History Acne Acute on chronic urinary retention Anemia Ankle pain Benign prostatic hyperplasia Chicken pox Congestive heart failure COPD exacerbation GERD (gastroesophageal reflux disease) History of nephrolithiasis History of prostate cancer History of urinary retention Hyperlipidemia Hypertension Impingement of both shoulders Left nephrolithiasis Measles Parkinson's disease Prostate cancer (~2010) Recurrent UTI Shoulder pain Tinea cruris Type 2 diabetes mellitus Urinary retention Urinary retention Surgical History Anesthesia History of knee surgery History of prostate biopsy Kidney stones S/P deep brain stimulator placement (11/2019) Family History Father Stroke Hypertension Bacterial UTI Mother Cancer Sister Hypertension Aunt Diabetes mellitus Uncle Kidney stones Social History marital status: number of children: 3 household members: spouse Smoking Status: Former smoker alcohol intake: never Type(s) of exercise: walking frequency: 1-2 times per week Smoking Status: Former smoker tobacco type: cigarettes alcohol intake frequency: holidays/special occasions only Exam Narrative Exam Narrative: General: Patient appears to be in no acute distress, acting appropriately Head: normocephalic, atraumatic, HEENT: Pupils equal round reactive, eyes tracking well, neck supple, no JVD Heart: regular rate and rhythm, no murmurs, rubs, or gallops heard Lungs: clear to auscultation, no adventitious sounds Abdomen: soft , nontender, nondistended, positive bowel sounds Neurological: no focal neurological signs, moving all extremities well, alert and oriented x3, Psych: good judgment ,good insight, mood is normal. Initial Vital Signs Initial Vital Signs: Vital Signs Temperature 98.7 F 01/12/25 16:45 Pulse Rate 98 H 01/12/25 16:45 Respiratory Rate 22 01/12/25 16:45 Blood Pressure 123/58 L 01/12/25 16:45 Pulse Oximetry 94 01/12/25 16:45 Oxygen Delivery Method Room Air 01/12/25 16:45 Course Orders Ordered: ED Orders 01/12/25 19:37 CBC Auto Diff [Complete Blood Count AUTO DIFF] Stat CMP [Comprehensive Metabolic Panel] Stat Lactate (Lactic Acid) Stat 01/12/25 20:46 UA Complete [Urinalysis and Microscopic] Stat Urine Culture Stat Discontinued Medications Ceftriaxone Sodium (Ceftriaxone 2,000 Mg Vial) 1,000 mg IM NOW ONE Stop: 01/12/25 21:07 Last Admin: 01/12/25 21:45 Dose: 1,000 mg Documented By: ROBERTH Lidocaine HCl (Lidocaine 1% (Pf) 5 Ml) 5 ml INJ NOW ONE Stop: 01/12/25 21:37 Last Admin: 01/12/25 21:45 Dose: 5 ml Documented By: ROBERTH Consultations Consultation #1: Dr. Roth neurologist on-call at [facility] suggested going down to 3 times a day of the carbidopa levodopa for 1 day and then resuming 4 times a day. Vital Signs Vital signs: Vital Signs - 8 hr 01/12/25 18:00 01/12/25 18:00 01/12/25 18:30 Pulse Rate 86 89 Respiratory Rate 23 21 Blood Pressure 113/55 L Pulse Oximetry 95 97 01/12/25 18:31 01/12/25 18:31 01/12/25 19:00 Pulse Rate 90 88 Respiratory Rate 25 H 25 H Blood Pressure 137/76 Pulse Oximetry 97 97 01/12/25 19:01 01/12/25 19:01 01/12/25 19:30 Pulse Rate 87 Respiratory Rate 26 H Blood Pressure 133/59 L 127/59 L Pulse Oximetry 98 01/12/25 19:30 01/12/25 20:00 01/12/25 20:00 Pulse Rate 90 91 H Respiratory Rate 21 21 Blood Pressure 145/89 H Pulse Oximetry 97 96 01/12/25 20:30 01/12/25 20:30 01/12/25 21:00 Pulse Rate 93 H 86 Respiratory Rate 22 22 Blood Pressure 145/89 H Pulse Oximetry 96 95 01/12/25 21:00 01/12/25 21:30 01/12/25 21:31 Pulse Rate 80 Respiratory Rate 22 Blood Pressure 160/121 H 155/65 H Pulse Oximetry 96 01/12/25 21:31 01/12/25 22:00 01/12/25 22:01 Pulse Rate 86 85 88 Respiratory Rate 21 28 H 21 Blood Pressure Pulse Oximetry 96 96 96 01/12/25 22:01 01/12/25 22:31 01/12/25 22:36 Pulse Rate 82 82 Respiratory Rate 33 H Blood Pressure 136/62 Pulse Oximetry 96 01/12/25 22:36 Pulse Rate Respiratory Rate 20 Blood Pressure 109/73 Pulse Oximetry MDM - Weakness Lab Data 01/12/25 19:37 01/12/25 19:37 Labs: Lab Results 01/12/25 01/12/25 Range/Units 19:37 20:46 WBC 8.3 (4.5-11.0) X10^3/uL RBC 3.93 L (4.5-5.9) X10^6/uL Hgb 11.8 L (13.5-17.5) g/dL Hct 33.9 L (41-53) % MCV 86.3 (80-100) fL MCH 30.0 (26-34) PG MCHC 34.8 (30-36) % RDW 15.2 H (11.6-14.8) % Plt Count 272 (150-400) X10^3/uL Neut % (Auto) 78.1 H (50-75) % Lymph % (Auto) 14.4 L (25-40) % [place] % (Auto) 6.0 (3-14) % Eos % (Auto) 0.5 L (2-4) % Baso % (Auto) 1.0 (0-2) % Neut # (Auto) 6500 (3384-4103) /uL Lymph # (Auto) 1200 (4411-6202) /uL [place] # (Auto) 500 (0-900) /uL Eos # (Auto) 0 (0-450) /uL Baso # (Auto) 100 (0-100) /uL Sodium 139 (137-145) mmol/L Potassium 3.8 (3.4-5.1) mmol/L Chloride 108 H (98-107) mmol/L Carbon Dioxide 23 (22-32) mmol/L BUN 17 (9-20) mg/dL Creatinine 0.83 (0.66-1.25) mg/dL Estimated GFR > 60 (>60) mL/min BUN/Creatinine Ratio 20.5 (6-22) Glucose 115 H (70-99) mg/dL Lactate 1.1 (0.7-2.1) mmol/L Calcium 9.6 (8.4-10.2) mg/dL Total Bilirubin 0.5 (0.2-1.3) mg/dL AST 12 L (17-59) IU/L ALT 15 (<50) IU/L Alkaline Phosphatase 72 (38-126) U/L Total Protein 6.2 L (6.3-8.2) g/dL Albumin 3.7 (3.5-5.0) g/dL Globulin 2.5 (1.7-4.1) g/dL Albumin/Globulin Ratio 1.5 (1.0-2.8) Urine Color Yellow Urine Appearance Clear Urine pH 8.5 H (4.5-8.0) Ur Specific [place] 1.015 (1.000-1.035) Urine Protein 1+ H (Negative) Urine Glucose (UA) Negative (Negative) g/dL Urine Ketones Trace H (NEGATIVE) Urine Occult Blood Negative (Negative) Urine Nitrate Positive H (Negative) Urine Bilirubin Negative (NEGATIVE) Urine Urobilinogen 0.2 (0.2) E.U./dL Ur Leukocyte Esterase 2+ H (NEGATIVE) Urine RBC None seen (0-5/HPF) Urine WBC 1-5/hpf (0-5/HPF) Ur Squamous Epith Cells None seen (0-5/HPF) Urine Bacteria Many (>30) H (None) Urine Yeast 0-1/hpf (None) Ur Culture Indicated? Specimen cultured Vol Urine Centrifuged Low vol <10ml unspun A MDM Narrative Medical decision making narrative: 74-year-old male with a history of Parkinson's disease , COPD, diabetes presents with potential worsening Parkinson's disease in the last 2-3 days after being increased in his dose of carbidopa levodopa. After consultation with Neurology on-call Dr. Roth , it was suggested that the patient can go down to 3 doses of carbidopa levodopa for 1 day and then resume the 4 times a day dose. During his course here, the patient remained at his baseline without any worsening symptoms. Patient advised to follow up sooner for worsening symptoms. He was also found to have a UTI which could have made his symptoms worse. He was given a dose of Rocephin and additional Keflex doses to complete a week course. Discharge Plan Departure Patient Disposition: Home Clinical Impression: Acute UTI Parkinson's disease Qualifiers: Dyskinesia presence: with dyskinesia Fluctuating manifestations: without fluctuating manifestations Qualified Code(s): G20.B1 - Parkinson's disease with dyskinesia, without mention of fluctuations Instructions: DI for Parkinson Disease, DI for Urinary Tract Infection (UTI) Activity Restrictions/Additional Instructions: Take antibiotics as prescribed. Tomorrow go to 3 times a day of the carbidopa levodopa and then resume 4 times a day. Call Neurology office for more assistance and consultation. Neurology is aware of the situation. Prescriptions: New cephalexin 500 mg capsule 500 mg PO BID Qty: 14 0RF No Action (DME) Comfort Touch Ult Thin Lancets 31 gauge misc See Rx Instructions .Route Qty: 100 2RF Rx Instructions: use to check blood sugars 1-2 times per day (DME) Blood Glucose Test Strip See Rx Instructions .Route Qty: 50 5RF Rx Instructions: use to check blood sugars 1-2 times per day (DME) blood-glucose meter Misc See Rx Instructions .Route Qty: 1 0RF Rx Instructions: use to check blood sugars 1-2 times per day metformin 850 mg tablet 850 mg PO TID Qty: 240 3RF ipratropium-albuterol 0.5 mg-3 mg(2.5 mg base)/3 mL solution for nebulization 3 ml inhalation Q6H PRN (Reason: shortness of breath or wheezing) Qty: 180 1RF omeprazole 20 mg capsule,delayed release(DR/EC) 20 mg PO DAILY Qty: 90 1RF losartan 50 mg tablet 50 mg PO BID Qty: 180 3RF gabapentin 100 mg capsule 100 mg PO 3XD Qty: 270 1RF Renacidin 1,980.6 mg-59.4 mg-980.4mg/30mL solution 30 ml irrigation TID Qty: 900 3RF (DME) pen needle, diabetic [Reshma 2nd Gen Pen Needle] 32 gauge x 5/32 needle See Rx Instructions .ROUTE .COMPLEX Qty: 100 3RF Dose Instruction: Use to inject insulin two times daily Rx Instructions: Use to inject insulin two times daily finasteride 5 mg tablet 5 mg PO DAILY Qty: 90 3RF atorvastatin 10 mg tablet 10 mg PO DAILY Qty: 90 3RF potassium chloride 10 mEq tablet extended release 10 meq PO BID temazepam 15 mg capsule 15 mg PO BEDTIME PRN (Reason: sleep) timolol maleate 0.25 % drops 1 drp EYE-BOTH DAILY albuterol sulfate 2.5 mg /3 mL (0.083 %) solution for nebulization 2.5 mg inhalation QID Qty: 75 2RF nystatin 100,000 unit/gram powder 1 applic topical TID Qty: 15 3RF aspirin [Adult Low Dose Aspirin] 81 mg tablet,delayed release (DR/EC) 81 mg PO DAILY latanoprost 0.005 % drops 1 drp EYE-BOTH DAILY acetaminophen [Acetaminophen Extra Strength] 500 mg Tablet 500 mg PO Q6H PRN (Reason: Pain (Scale Score 4-6)) cranberry fruit 400 mg Capsule 400 mg PO DAILY Rx Instructions: administer with a meal carbidopa-levodopa 25-100 mg tablet See Rx Instructions .ROUTE .COMPLEX Patient Comments: extended release Rx Instructions: take 3 tabs at 0600, 2.5 tabs at 1000, 3 tabs at 1400, 2.5 tabs at 1800, 2.5 tabs at 2200 entacapone 200 mg Tablet 200 mg PO 5XD tamsulosin 0.4 mg capsule 0.4 mg PO DAILY amlodipine 5 mg tablet 10 mg PO DAILY insulin glargine [Lantus Solostar U-100 Insulin] 100 unit/mL (3 mL) insulin pen 125 unit SUBCUT BEDTIME Patient Comments: 75 UNITS IN THE MORNING AND 50 UNITS AT BEDTIME albuterol sulfate 2.5 mg /3 mL (0.083 %) Solution For Nebulization 2.5 mg inhalation Q4H PRN (Reason: Shortness Of Breath) Qty: 90 0RF polyethylene glycol 3350 [Gavilax] 17 gram Powder In Packet 17 gm PO DAILY PRN (Reason: Constipation) Qty: 30 0RF docusate sodium 100 mg Capsule 100 mg PO BID Qty: 60 0RF carbidopa-levodopa 50-200 mg tablet extended release 1 tab PO 4XD methenamine hippurate 1 gram tablet 1 g PO BID Qty: 180 3RF Referrals: Ravindra Goldsmith DO [Primary Care Provider, Family Practice] Stand Alone Forms: Patient Portal/API
[2025-01-12 19:48] LABS: Add Manual Diff / Slide Review NO; Hematocrit 33.9 % (41-53); Hemoglobin 11.8 g/dL (13.5-17.5); Lymphocytes Absolute Auto 1200 /uL (1100-4500); Mean Corpuscular HGB Conc 34.8 % (30-36); Mean Corpuscular Hemoglobin 30.0 PG (26-34); Mean Corpuscular Volume 86.3 fL (80-100); Platelet Count 272 X10^3/uL (150-400)
[2025-01-12 20:03] LABS: Alanine Aminotransferase 15 IU/L (<50); Albumin 3.7 g/dL (3.5-5.0); Albumin Globulin Ratio 1.5 (1.0-2.8); Alkaline Phosphatase 72 U/L (38-126); Blood Urea Nitrogen 17 mg/dL (9-20); Calcium 9.6 mg/dL (8.4-10.2); Carbon Dioxide 23 mmol/L (22-32); Chloride 108 mmol/L (98-107); Estimated Glomerular Filt Rate > 60 mL/min (>60); Globulin 2.5 g/dL (1.7-4.1); Glucose 115 mg/dL (70-99); HEMOLYSIS < 15 (0-50); Lactate (Lactic Acid) 1.1 mmol/L (0.7-2.1); Potassium 3.8 mmol/L (3.4-5.1); Sodium 139 mmol/L (137-145); Total Protein 6.2 g/dL (6.3-8.2)
--- NOTE | 2025-01-12 20:30 | PC.NURSE ---
lying on stretcher, at bedside, urine specimen obtained from [facility] port, urine noted yellow and cloudy, pt without c/o at this time waiting test results and disposition
[2025-01-12 20:54] LABS: Appearance Urine UA CLEAR; Bilirubin Urine UA NEGATIVE (NEGATIVE); Color Urine UA YELLOW; Glucose Urine UA NEGATIVE (Negative); Ketones Urine UA TRACE (NEGATIVE); Leukocyte Esterase Urine UA 2+ (NEGATIVE); Nitrite Urine UA POSITIVE (Negative); Occult Blood Urine UA NEGATIVE (Negative); Protein Urine UA 1+ (Negative); Specific Gravity Urine UA 1.015 (1.000-1.035); Urobilinogen Urine UA 0.2 E.U./dL (0.2); pH Urine UA 8.5 (4.5-8.0)
[2025-01-12 20:59] LABS: Culture Indicated Urine Specimen Cultured
[2025-01-12] MEDS: LIDOCAINE 1% (PF) 5 ML INJ (21:45)
--- NOTE | 2025-01-12 21:45 | PC.NURSE ---
discussed transportation home, worried about being charged for ambulance but stated she would need help when she got home, explained that he would qualify for ambulance transportation home. and pt okay with plan. arrangements made and pt and updated
== END 2025-01-12 22:45 | disposition home or self-care (01) ==
PROVIDERS: Emergency Provider Family Medicine; PCP Family Medicine
DX: G20.B1 Parkinson's disease with dyskinesia, without mention of fluctuations (principal); N39.0 Urinary tract infection, site not specified
CPT/HCPCS: 36415; 80053; 81001; 83605; 85025; 87077; 87086; 87186; 96372; 99283; J0696

== ENCOUNTER 2025-01-21 17:44 | Inpatient (IN) | payer MEDICARE, OTHER, SELFPAY ==
[2025-01-21 12:23] VITALS: PULSE 83; RESP 30; O2SAT 100; BMI 40.0
[2025-01-21 18:12] VITALS: BP 139/85; PULSE 103; RESP 34; TEMP 36.7; O2SAT 95; BMI 34.9
--- NOTE | 2025-01-21 18:31 | ED.GENADULT ---
HPI - General Adult <Gisela Joe MD - Last Filed: 01/21/25 19:27> General Chief complaint: Urogenital-Male Stated complaint: PC ref, UTI Time Seen by Provider: 01/21/25 18:31 History of Present Illness HPI narrative: 74-year-old gentleman history of diabetes, insulin dependent, hypertension, hyperlipidemia, BPH, COPD with hospital discharge for same December 23. He presents complaining of severe dyspnea, significant parkinsonian tremor such that is hard to even get vitals, was called by a [facility] provider and told that he had a urinary tract infection he was also seen on January 18 in our emergency department with diagnosis of urinary tract infection. Due to his acute respiratory distress and dramatic parkinsonian uncontrolled movement it is difficult to obtain further review of systems. Related Data Home Medications ?Medication ?Instructions ?Recorded ?Confirmed latanoprost 0.005 % eye drops 1 drp EYE-BOTH DAILY 06/02/22 01/12/25 aspirin 81 mg tablet,delayed 81 mg PO DAILY 10/21/22 01/12/25 release (Adult Low Dose Aspirin) acetaminophen 500 mg tablet 500 mg PO Q6H PRN Pain (Scale 04/03/23 01/12/25 (Acetaminophen Extra Strength) Score 4-6) carbidopa 25 mg-levodopa 100 mg See Rx Instructions .Route .COMPLEX 04/03/23 01/12/25 tablet cranberry fruit 400 mg capsule 400 mg PO DAILY 04/03/23 01/12/25 entacapone 200 mg tablet 200 mg PO 5XD 05/18/23 01/12/25 potassium chloride 10 mEq 10 meq PO BID 05/25/24 01/12/25 tablet,extended release temazepam 15 mg capsule 15 mg PO BEDTIME PRN sleep 05/25/24 01/12/25 timolol maleate 0.25 % eye drops 1 drp EYE-BOTH DAILY 05/25/24 01/12/25 amlodipine 5 mg tablet 10 mg PO DAILY 11/21/24 01/12/25 tamsulosin 0.4 mg capsule 0.4 mg PO DAILY 11/21/24 01/12/25 insulin glargine 100 unit/mL (3 125 unit SUBCUT BEDTIME 12/14/24 01/12/25 mL) subcutaneous pen (Lantus Solostar U-100 Insulin) carbidopa ER 50 mg-levodopa 200 mg 1 tab PO 4XD 01/12/25 01/12/25 tablet,extended release Previous Rx's ?Medication ?Instructions ?Recorded blood sugar diagnostic (Blood #50 ea 02/16/24 Glucose Test strips) blood-glucose meter #1 ea 02/16/24 lancets 31 gauge (Comfort Touch #100 ea 02/16/24 Ultra Thin Lancets) methenamine hippurate 1 gram tablet 1 g PO BID #180 tabs 04/27/24 metformin 850 mg tablet 850 mg PO TID #240 tabs 05/11/24 ipratropium 0.5 mg-albuterol 3 mg 3 ml inhalation Q6H PRN shortness 07/16/24 (2.5 mg base)/3 mL nebulization of breath or wheezing #180 mL soln albuterol sulfate 2.5 mg/3 mL 2.5 mg (3 mL) inhalation QID #75 mL 07/27/24 (0.083 %) solution for nebulization gabapentin 100 mg capsule 100 mg PO 3XD #270 caps 08/14/24 losartan 50 mg tablet 50 mg PO BID #180 tabs 08/14/24 citric ac 1980.6 mg-glucono 59.4 30 ml irrigation TID #900 mL 08/29/24 mg-mag carb 980.4 mg/30 mL irrig.soln (Renacidin) pen needle, diabetic 32 gauge x #100 ea 10/11/24 (Reshma 2nd Gen Pen Needle) atorvastatin 10 mg tablet 10 mg PO DAILY #90 tabs 11/16/24 finasteride 5 mg tablet 5 mg PO DAILY #90 tabs 11/16/24 nystatin 100,000 unit/gram topical 1 applic topical TID #15 grams 12/14/24 powder albuterol sulfate 2.5 mg/3 mL 2.5 mg (3 mL) inhalation Q4H PRN 12/23/24 (0.083 %) solution for nebulization Shortness Of Breath #90 mL docusate sodium 100 mg capsule 100 mg PO BID #60 caps 12/23/24 polyethylene glycol 3350 17 gram 17 gm PO DAILY PRN Constipation 12/23/24 oral powder packet (Gavilax) #30 ea cephalexin 500 mg capsule 500 mg PO BID #14 caps 01/12/25 omeprazole 20 mg capsule,delayed 20 mg PO DAILY #90 caps 01/14/25 release Allergies Allergy/AdvReac Type Severity Reaction Status Date / Time No Known Drug Allergies Allergy Verified 01/21/25 18:11 Patient History <Gisela Joe MD - Last Filed: 01/21/25 19:27> Medical History Acne Acute on chronic urinary retention Anemia Ankle pain Benign prostatic hyperplasia Chicken pox Congestive heart failure COPD exacerbation GERD (gastroesophageal reflux disease) History of nephrolithiasis History of prostate cancer History of urinary retention Hyperlipidemia Hypertension Impingement of both shoulders Left nephrolithiasis Measles Parkinson's disease Prostate cancer (~2010) Recurrent UTI Shoulder pain Tinea cruris Type 2 diabetes mellitus Urinary retention Urinary retention Surgical History Anesthesia History of knee surgery History of prostate biopsy Kidney stones S/P deep brain stimulator placement (11/2019) Family History Father Stroke Hypertension Bacterial UTI Mother Cancer Sister Hypertension Aunt Diabetes mellitus Uncle Kidney stones Social History marital status: number of children: 3 household members: spouse alcohol intake: never Type(s) of exercise: walking frequency: 1-2 times per week tobacco type: cigarettes alcohol intake frequency: holidays/special occasions only Exam <Gisela Joe MD - Last Filed: 01/21/25 19:27> Initial Vital Signs Initial Vital Signs: Vital Signs Temperature 98.0 F 01/21/25 18:12 Pulse Rate 103 H 01/21/25 18:12 Respiratory Rate 34 H 01/21/25 18:12 Blood Pressure 139/85 01/21/25 18:12 Pulse Oximetry 95 01/21/25 18:12 Oxygen Delivery Method Room Air 01/21/25 18:12 <Chandrakant Malik DO - Last Filed: 01/22/25 02:17> Initial Vital Signs Initial Vital Signs: Vital Signs Temperature 98.0 F 01/21/25 18:12 Pulse Rate 103 H 01/21/25 18:12 Respiratory Rate 34 H 01/21/25 18:12 Blood Pressure 139/85 01/21/25 18:12 Pulse Oximetry 95 12/15/25 18:12 Oxygen Delivery Method Room Air 01/21/25 18:12 Course <Gisela Joe MD - Last Filed: 01/21/25 19:27> Orders Ordered: ED Orders 01/21/25 18:34 XR chest 1V Stat EKG-12 Lead Stat Venous Blood Gas STAT 01/21/25 18:46 Blood Culture Stat Complete Blood Count AUTO DIFF Stat Comprehensive Metabolic Panel Stat D Dimer Stat Lactate (Lactic Acid) Stat NT-proBNP (BNP-Adult 18+) Stat PTT Partial Thromboplastin Jeremiah Stat Procalcitonin Stat Prothrombin Time INR Stat Respiratory Panel (Film Array) Stat Troponin & CK Cardiac Panel Stat 01/21/25 18:50 Venous Blood Gas Routine 01/21/25 22:05 CT abdomen pelvis w con Stat CT angio chest PE protocol Stat 01/21/25 23:50 Urinalysis and Microscopic Stat Urine Culture Stat Discontinued Medications Albuterol/Ipratropium (Albuterol/Ipratropium 3 Ml Ampul) 9 ml INH NOW ONE Stop: 01/21/25 18:34 Last Admin: 01/21/25 18:40 Dose: 9 ml Documented By: MIRNA Albuterol/Ipratropium (Albuterol/Ipratropium 3 Ml Ampul) 3 ml INH NOW ONE Stop: 01/21/25 18:35 Last Admin: 01/21/25 23:16 Dose: Not Given Documented By: JEWELL Sodium Chloride (Normal Saline 0.9%) 1,845 mls @ 1,230 mls/hr 30 ml/kg infuse over 90 min (1845 ml) IV NOW ONE Stop: 01/21/25 20:03 Last Infusion: 01/21/25 23:15 Dose: Infused Documented By: Admin: 01/21/25 19:09 Dose: 1,230 mls/hr Documented By: ONEL Piperacillin Sod/Tazobactam (Sod 4.5 gm/ Sodium Chloride) 100 mls @ 200 mls/hr IV STAT ONE Stop: 01/21/25 18:35 Last Infusion: 01/21/25 19:46 Dose: Infused Documented By: Admin: 01/21/25 19:10 Dose: 200 mls/hr Documented By: ONEL Vital Signs Vital signs: Vital Signs - 8 hr 01/21/25 18:40 01/21/25 23:14 Pulse Rate 91 H 79 Respiratory Rate 22 16 Blood Pressure 130/78 Pulse Oximetry 98 95 Oxygen Delivery Method Room Air Room Air <Chandrakant Davilamodesto, - Last Filed: 01/22/25 02:17> Orders Ordered: ED Orders 01/21/25 18:34 XR chest 1V Stat EKG-12 Lead Stat Venous Blood Gas STAT 01/21/25 18:46 Blood Culture Stat Complete Blood Count AUTO DIFF Stat Comprehensive Metabolic Panel Stat D Dimer Stat Lactate (Lactic Acid) Stat NT-proBNP (BNP-Adult 18+) Stat PTT Partial Thromboplastin Jeremiah Stat Procalcitonin Stat Prothrombin Time INR Stat Respiratory Panel (Film Array) Stat Troponin & CK Cardiac Panel Stat 01/21/25 18:50 Venous Blood Gas Routine 01/21/25 22:05 CT abdomen pelvis w con Stat CT angio chest PE protocol Stat 01/21/25 23:50 Urinalysis and Microscopic Stat Urine Culture Stat Discontinued Medications Albuterol/Ipratropium (Albuterol/Ipratropium 3 Ml Ampul) 9 ml INH NOW ONE Stop: 01/21/25 18:34 Last Admin: 01/21/25 18:40 Dose: 9 ml Documented By: MIRNA Albuterol/Ipratropium (Albuterol/Ipratropium 3 Ml Ampul) 3 ml INH NOW ONE Stop: 01/21/25 18:35 Last Admin: 01/21/25 23:16 Dose: Not Given Documented By: JEWELL Sodium Chloride (Normal Saline 0.9%) 1,845 mls @ 1,230 mls/hr 30 ml/kg infuse over 90 min (1845 ml) IV NOW ONE Stop: 01/21/25 20:03 Last Infusion: 01/21/25 23:15 Dose: Infused Documented By: Admin: 01/21/25 19:09 Dose: 1,230 mls/hr Documented By: ONEL Piperacillin Sod/Tazobactam (Sod 4.5 gm/ Sodium Chloride) 100 mls @ 200 mls/hr IV STAT ONE Stop: 01/21/25 18:35 Last Infusion: 01/21/25 19:46 Dose: Infused Documented By: Admin: 01/21/25 19:10 Dose: 200 mls/hr Documented By: ONEL Vital Signs Vital signs: Vital Signs - 8 hr 01/21/25 18:40 01/21/25 23:14 Pulse Rate 91 H 79 Respiratory Rate 22 16 Blood Pressure 130/78 Pulse Oximetry 98 95 Oxygen Delivery Method Room Air Room Air Medical Decision Making <Gisela Joe MD - Last Filed: 01/21/25 19:27> Lab Data 01/21/25 18:46 01/21/25 18:46 Labs: Lab Results 01/21/25 01/21/25 01/21/25 Range/Units 18:46 18:50 21:28 WBC 12.6 H (4.5-11.0) X10^3/uL RBC 4.13 L (4.5-5.9) X10^6/uL Hgb 12.2 L (13.5-17.5) g/dL Hct 36.3 L (41-53) % MCV 88.0 (80-100) fL MCH 29.5 (26-34) PG MCHC 33.6 (30-36) % RDW 15.0 H (11.6-14.8) % Plt Count 262 (150-400) X10^3/uL Neut % (Auto) 76.3 H (50-75) % Lymph % (Auto) 16.1 L (25-40) % [place] % (Auto) 5.6 (3-14) % Eos % (Auto) 0.9 L (2-4) % Baso % (Auto) 1.1 (0-2) % Neut # (Auto) 9600 H (8953-1705) /uL Lymph # (Auto) 2000 (7201-5879) /uL [place] # (Auto) 700 (0-900) /uL Eos # (Auto) 100 (0-450) /uL Baso # (Auto) 100 (0-100) /uL PT 10.9 (9.4-12.5) SECONDS INR 1.0 (0.9-1.3) APTT 27 (25.1-36.5) SECONDS D-Dimer 3747 H (<500) ng/ml VBG pH 7.37 (7.33-7.43) VBG pCO2 29.0 L (45-50) mmHg VBG pO2 65 H (35-45) mmHg VBG HCO3 17 L (24-28) mmol/L VBG Total CO2 16 L (24-29) mmol/L VBG O2 Saturation 92 H (70-75) % VBG Base Excess -7.4 L (0-4) mmol/L Sodium 137 (137-145) mmol/L Potassium 4.2 (3.4-5.1) mmol/L Chloride 106 (98-107) mmol/L Carbon Dioxide 15 L (22-32) mmol/L BUN 15 (9-20) mg/dL Creatinine 0.86 (0.66-1.25) mg/dL Estimated GFR > 60 (>60) mL/min BUN/Creatinine Ratio 17.4 (6-22) Glucose 225 H D (70-99) mg/dL Lactate 7.3 H* 1.7 (0.7-2.1) mmol/L Calcium 9.3 (8.4-10.2) mg/dL Total Bilirubin 0.6 (0.2-1.3) mg/dL AST 18 (17-59) IU/L ALT 17 (<50) IU/L Alkaline Phosphatase 87 (38-126) U/L Total Creatine Kinase 57 (55-170) U/L Troponin I 0.014 (0.01-0.034) ng/mL NT-Pro-B Natriuret Pep 324 (<450) pg/mL Total Protein 6.9 (6.3-8.2) g/dL Albumin 4.3 (3.5-5.0) g/dL Globulin 2.6 (1.7-4.1) g/dL Albumin/Globulin Ratio 1.7 (1.0-2.8) Procalcitonin 0.077 (<0.5) ng/mL Urine Color Urine Appearance Urine pH (4.5-8.0) Ur Specific [place] (1.000-1.035) Urine Protein (Negative) Urine Glucose (UA) (Negative) g/dL Urine Ketones (NEGATIVE) Urine Occult Blood (Negative) Urine Nitrate (Negative) Urine Bilirubin (NEGATIVE) Urine Urobilinogen (0.2) E.U./dL Ur Leukocyte Esterase (NEGATIVE) Urine RBC (0-5/HPF) Urine WBC (0-5/HPF) Ur Squamous Epith Cells (0-5/HPF) Urine Bacteria (None) Ur Culture Indicated? Vol Urine Centrifuged Chlamy pneumoniae PCR Not detected (Not Detect) Adenovirus (PCR) Not detected (Not Detect) B. pertussis DNA (PCR) Not detected (Not Detect) B.parapertussis DNA PCR Not detected (Not Detecte) Coronavirus OC43 (PCR) Not detected (Not Detect) Coronavirus HKU1 (PCR) Not detected (Not Detect) Coronavirus 229E (PCR) Not detected (Not Detect) SARS-CoV-2 (PCR) Not detected (Not Detecte) Coronavirus NL63 (PCR) Not detected (Not Detect) Human Metapneumovir PCR Not detected (Not Detect) Influenza Type A (PCR) Not detected (Not Detect) Influenza Type B (PCR) Not detected (Not Detect) M. pneumoniae (PCR) Not detected (Not Detect) Parainfluenza 1 (PCR) Not detected (Not Detect) Parainfluenza 2 (PCR) Not detected (Not Detect) Parainfluenza 3 (PCR) Not detected (Not Detect) Parainfluenza 4 (PCR) Not detected (Not Detect) RSV (PCR) Not detected (Not Detect) Entero/Rhino (PCR) Not detected (Not Detect) 01/21/25 Range/Units 23:50 WBC (4.5-11.0) X10^3/uL RBC (4.5-5.9) X10^6/uL Hgb (13.5-17.5) g/dL Hct (41-53) % MCV (80-100) fL MCH (26-34) PG MCHC (30-36) % RDW (11.6-14.8) % Plt Count (150-400) X10^3/uL Neut % (Auto) (50-75) % Lymph % (Auto) (25-40) % [place] % (Auto) (3-14) % Eos % (Auto) (2-4) % Baso % (Auto) (0-2) % Neut # (Auto) (8798-3030) /uL Lymph # (Auto) (7972-5243) /uL [place] # (Auto) (0-900) /uL Eos # (Auto) (0-450) /uL Baso # (Auto) (0-100) /uL PT (9.4-12.5) SECONDS INR (0.9-1.3) APTT (25.1-36.5) SECONDS D-Dimer (<500) ng/ml VBG pH (7.33-7.43) VBG pCO2 (45-50) mmHg VBG pO2 (35-45) mmHg VBG HCO3 (24-28) mmol/L VBG Total CO2 (24-29) mmol/L VBG O2 Saturation (70-75) % VBG Base Excess (0-4) mmol/L Sodium (137-145) mmol/L Potassium (3.4-5.1) mmol/L Chloride (98-107) mmol/L Carbon Dioxide (22-32) mmol/L BUN (9-20) mg/dL Creatinine (0.66-1.25) mg/dL Estimated GFR (>60) mL/min BUN/Creatinine Ratio (6-22) Glucose (70-99) mg/dL Lactate (0.7-2.1) mmol/L Calcium (8.4-10.2) mg/dL Total Bilirubin (0.2-1.3) mg/dL AST (17-59) IU/L ALT (<50) IU/L Alkaline Phosphatase (38-126) U/L Total Creatine Kinase (55-170) U/L Troponin I (0.01-0.034) ng/mL NT-Pro-B Natriuret Pep (<450) pg/mL Total Protein (6.3-8.2) g/dL Albumin (3.5-5.0) g/dL Globulin (1.7-4.1) g/dL Albumin/Globulin Ratio (1.0-2.8) Procalcitonin (<0.5) ng/mL Urine Color Yellow Urine Appearance Clear Urine pH 6.0 (4.5-8.0) Ur Specific P[place] 1.010 (1.000-1.035) Urine Protein Trace H (Negative) Urine Glucose (UA) 1+ H (Negative) g/dL Urine Ketones Trace H (NEGATIVE) Urine Occult Blood 3+ H (Negative) Urine Nitrate Positive H (Negative) Urine Bilirubin Negative (NEGATIVE) Urine Urobilinogen 0.2 (0.2) E.U./dL Ur Leukocyte Esterase 2+ H (NEGATIVE) Urine RBC None seen (0-5/HPF) Urine WBC 30-100/hpf H (0-5/HPF) Ur Squamous Epith Cells None seen (0-5/HPF) Urine Bacteria Moderate (10-30) H (None) Ur Culture Indicated? Specimen cultured Vol Urine Centrifuged 10ml (spun) Chlamy pneumoniae PCR (Not Detect) Adenovirus (PCR) (Not Detect) B. pertussis DNA (PCR) (Not Detect) B.parapertussis DNA PCR (Not Detecte) Coronavirus OC43 (PCR) (Not Detect) Coronavirus HKU1 (PCR) (Not Detect) Coronavirus 229E (PCR) (Not Detect) SARS-CoV-2 (PCR) (Not Detecte) Coronavirus NL63 (PCR) (Not Detect) Human Metapneumovir PCR (Not Detect) Influenza Type A (PCR) (Not Detect) Influenza Type B (PCR) (Not Detect) M. pneumoniae (PCR) (Not Detect) Parainfluenza 1 (PCR) (Not Detect) Parainfluenza 2 (PCR) (Not Detect) Parainfluenza 3 (PCR) (Not Detect) Parainfluenza 4 (PCR) (Not Detect) RSV (PCR) (Not Detect) Entero/Rhino (PCR) (Not Detect) MDM Narrative Medical decision making narrative: CC: Complicating co-morbidities: Data collected from: patient Social determinants of health that may influence the patients condition: Medical records reviewed: UTI from January 12 is growing out E coli and Proteus both of which are sensitive to piperacillin tazobactam, this is choice for initial antibiotics Discharge summary for COPD exacerbation in December of this year is reviewed Differential considered: Exam documented above, pertinent findings include: Lab Test results independently reviewed as above. Pertinent findings: 725pm lab calls to notify us of critical lactic acid at 7.3 -while I am concerned for infection, his lactic acid could absolutely be significantly elevated due to the dramatic parkinsonian tremors and uncontrolled motor movement Remainder of chemistries are actually fairly reassuring. No acute kidney injury, electrolytes are appropriate CBC is elevated at 12.6 Independently reviewed EKG: Imaging studies independently reviewed: Consultations: Treatments: Re-evaluations: Discussion: <Chandrakant Malik DO - Last Filed: 01/22/25 02:17> Lab Data Labs: Lab Results 01/21/25 01/21/25 01/21/25 Range/Units 18:46 18:50 21:28 WBC 12.6 H (4.5-11.0) X10^3/uL RBC 4.13 L (4.5-5.9) X10^6/uL Hgb 12.2 L (13.5-17.5) g/dL Hct 36.3 L (41-53) % MCV 88.0 (80-100) fL MCH 29.5 (26-34) PG MCHC 33.6 (30-36) % RDW 15.0 H (11.6-14.8) % Plt Count 262 (150-400) X10^3/uL Neut % (Auto) 76.3 H (50-75) % Lymph % (Auto) 16.1 L (25-40) % [place] % (Auto) 5.6 (3-14) % Eos % (Auto) 0.9 L (2-4) % Baso % (Auto) 1.1 (0-2) % Neut # (Auto) 9600 H (2109-3038) /uL Lymph # (Auto) 2000 (1098-7388) /uL [place] # (Auto) 700 (0-900) /uL Eos # (Auto) 100 (0-450) /uL Baso # (Auto) 100 (0-100) /uL PT 10.9 (9.4-12.5) SECONDS INR 1.0 (0.9-1.3) APTT 27 (25.1-36.5) SECONDS D-Dimer 3747 H (<500) ng/ml VBG pH 7.37 (7.33-7.43) VBG pCO2 29.0 L (45-50) mmHg VBG pO2 65 H (35-45) mmHg VBG HCO3 17 L (24-28) mmol/L VBG Total CO2 16 L (24-29) mmol/L VBG O2 Saturation 92 H (70-75) % VBG Base Excess -7.4 L (0-4) mmol/L Sodium 137 (137-145) mmol/L Potassium 4.2 (3.4-5.1) mmol/L Chloride 106 (98-107) mmol/L Carbon Dioxide 15 L (22-32) mmol/L BUN 15 (9-20) mg/dL Creatinine 0.86 (0.66-1.25) mg/dL Estimated GFR > 60 (>60) mL/min BUN/Creatinine Ratio 17.4 (6-22) Glucose 225 H D (70-99) mg/dL Lactate 7.3 H* 1.7 (0.7-2.1) mmol/L Calcium 9.3 (8.4-10.2) mg/dL Total Bilirubin 0.6 (0.2-1.3) mg/dL AST 18 (17-59) IU/L ALT 17 (<50) IU/L Alkaline Phosphatase 87 (38-126) U/L Total Creatine Kinase 57 (55-170) U/L Troponin I 0.014 (0.01-0.034) ng/mL NT-Pro-B Natriuret Pep 324 (<450) pg/mL Total Protein 6.9 (6.3-8.2) g/dL Albumin 4.3 (3.5-5.0) g/dL Globulin 2.6 (1.7-4.1) g/dL Albumin/Globulin Ratio 1.7 (1.0-2.8) Procalcitonin 0.077 (<0.5) ng/mL Urine Color Urine Appearance Urine pH (4.5-8.0) Ur Specific [place] (1.000-1.035) Urine Protein (Negative) Urine Glucose (UA) (Negative) g/dL Urine Ketones (NEGATIVE) Urine Occult Blood (Negative) Urine Nitrate (Negative) Urine Bilirubin (NEGATIVE) Urine Urobilinogen (0.2) E.U./dL Ur Leukocyte Esterase (NEGATIVE) Urine RBC (0-5/HPF) Urine WBC (0-5/HPF) Ur Squamous Epith Cells (0-5/HPF) Urine Bacteria (None) Ur Culture Indicated? Vol Urine Centrifuged Chlamy pneumoniae PCR Not detected (Not Detect) Adenovirus (PCR) Not detected (Not Detect) B. pertussis DNA (PCR) Not detected (Not Detect) B.parapertussis DNA PCR Not detected (Not Detecte) Coronavirus OC43 (PCR) Not detected (Not Detect) Coronavirus HKU1 (PCR) Not detected (Not Detect) Coronavirus 229E (PCR) Not detected (Not Detect) SARS-CoV-2 (PCR) Not detected (Not Detecte) Coronavirus NL63 (PCR) Not detected (Not Detect) Human Metapneumovir PCR Not detected (Not Detect) Influenza Type A (PCR) Not detected (Not Detect) Influenza Type B (PCR) Not detected (Not Detect) M. pneumoniae (PCR) Not detected (Not Detect) Parainfluenza 1 (PCR) Not detected (Not Detect) Parainfluenza 2 (PCR) Not detected (Not Detect) Parainfluenza 3 (PCR) Not detected (Not Detect) Parainfluenza 4 (PCR) Not detected (Not Detect) RSV (PCR) Not detected (Not Detect) Entero/Rhino (PCR) Not detected (Not Detect) 01/21/25 Range/Units 23:50 WBC (4.5-11.0) X10^3/uL RBC (4.5-5.9) X10^6/uL Hgb (13.5-17.5) g/dL Hct (41-53) % MCV (80-100) fL MCH (26-34) PG MCHC (30-36) % RDW (11.6-14.8) % Plt Count (150-400) X10^3/uL Neut % (Auto) (50-75) % Lymph % (Auto) (25-40) % [place] % (Auto) (3-14) % Eos % (Auto) (2-4) % Baso % (Auto) (0-2) % Neut # (Auto) (2234-1596) /uL Lymph # (Auto) (2757-9300) /uL [place] # (Auto) (0-900) /uL Eos # (Auto) (0-450) /uL Baso # (Auto) (0-100) /uL PT (9.4-12.5) SECONDS INR (0.9-1.3) APTT (25.1-36.5) SECONDS D-Dimer (<500) ng/ml VBG pH (7.33-7.43) VBG pCO2 (45-50) mmHg VBG pO2 (35-45) mmHg VBG HCO3 (24-28) mmol/L VBG Total CO2 (24-29) mmol/L VBG O2 Saturation (70-75) % VBG Base Excess (0-4) mmol/L Sodium (137-145) mmol/L Potassium (3.4-5.1) mmol/L Chloride (98-107) mmol/L Carbon Dioxide (22-32) mmol/L BUN (9-20) mg/dL Creatinine (0.66-1.25) mg/dL Estimated GFR (>60) mL/min BUN/Creatinine Ratio (6-22) Glucose (70-99) mg/dL Lactate (0.7-2.1) mmol/L Calcium (8.4-10.2) mg/dL Total Bilirubin (0.2-1.3) mg/dL AST (17-59) IU/L ALT (<50) IU/L Alkaline Phosphatase (38-126) U/L Total Creatine Kinase (55-170) U/L Troponin I (0.01-0.034) ng/mL NT-Pro-B Natriuret Pep (<450) pg/mL Total Protein (6.3-8.2) g/dL Albumin (3.5-5.0) g/dL Globulin (1.7-4.1) g/dL Albumin/Globulin Ratio (1.0-2.8) Procalcitonin (<0.5) ng/mL Urine Color Yellow Urine Appearance Clear Urine pH 6.0 (4.5-8.0) Ur Specific [place] 1.010 (1.000-1.035) Urine Protein Trace H (Negative) Urine Glucose (UA) 1+ H (Negative) g/dL Urine Ketones Trace H (NEGATIVE) Urine Occult Blood 3+ H (Negative) Urine Nitrate Positive H (Negative) Urine Bilirubin Negative (NEGATIVE) Urine Urobilinogen 0.2 (0.2) E.U./dL Ur Leukocyte Esterase 2+ H (NEGATIVE) Urine RBC None seen (0-5/HPF) Urine WBC 30-100/hpf H (0-5/HPF) Ur Squamous Epith Cells None seen (0-5/HPF) Urine Bacteria Moderate (10-30) H (None) Ur Culture Indicated? Specimen cultured Vol Urine Centrifuged 10ml (spun) Chlamy pneumoniae PCR (Not Detect) Adenovirus (PCR) (Not Detect) B. pertussis DNA (PCR) (Not Detect) B.parapertussis DNA PCR (Not Detecte) Coronavirus OC43 (PCR) (Not Detect) Coronavirus HKU1 (PCR) (Not Detect) Coronavirus 229E (PCR) (Not Detect) SARS-CoV-2 (PCR) (Not Detecte) Coronavirus NL63 (PCR) (Not Detect) Human Metapneumovir PCR (Not Detect) Influenza Type A (PCR) (Not Detect) Influenza Type B (PCR) (Not Detect) M. pneumoniae (PCR) (Not Detect) Parainfluenza 1 (PCR) (Not Detect) Parainfluenza 2 (PCR) (Not Detect) Parainfluenza 3 (PCR) (Not Detect) Parainfluenza 4 (PCR) (Not Detect) RSV (PCR) (Not Detect) Entero/Rhino (PCR) (Not Detect) MDM Narrative Medical decision making narrative: CC: Complicating co-morbidities: Data collected from: patient Social determinants of health that may influence the patients condition: Medical records reviewed: UTI from January 12 is growing out E coli and Proteus both of which are sensitive to piperacillin tazobactam, this is choice for initial antibiotics Discharge summary for COPD exacerbation in December of this year is reviewed Differential considered: Exam documented above, pertinent findings include: Lab Test results independently reviewed as above. Pertinent findings: 725pm lab calls to notify us of critical lactic acid at 7.3 -while I am concerned for infection, his lactic acid could absolutely be significantly elevated due to the dramatic parkinsonian tremors and uncontrolled motor movement Remainder of chemistries are actually fairly reassuring. No acute kidney injury, electrolytes are appropriate CBC is elevated at 12.6 Independently reviewed EKG: Imaging studies independently reviewed: Consultations: Treatments: Re-evaluations: Discussion: 2299: Patient was signed out to me by Dr. Dinh, patient with a past medical history of Parkinson's, COPD not requiring supplemental oxygen baseline, diabetes, comes into the ED from home for evaluation of dyspnea, increased tremors, also was told that he had a urine infection therefore came into the ED for further evaluation treatment, on exam patient was confused but directable, moving all 4 extremities spontaneously, patient was shaking significantly upon initial evaluation most likely cause of initial elevated lactate, however patient urine was positive for UTI, patient with also elevated WBC, the remainder of his lab work and imaging was unremarkable therefore patient will be admitted for metabolic encephalopathy secondary to UTI. The patient's management plan was discussed Dr. Madrid, who agrees to admit the patient to their service and assumes care of this patient at this time. Full admission orders will be placed by the primary team. Discharge Plan Departure Patient Disposition: Admitted As Inpatient Clinical Impression: Acute metabolic encephalopathy, Acute UTI
--- NOTE | 2025-01-21 18:34 | EKG_ITS ---
[address] [address] Test Date: 2025-01-21 Pat Name: Sarbjit Mayen Department: Room: Gender: Male Collections Technician: HERNAN : 1950 Requested By: Order Number: [id number] Reading MD: Ron Graham MD Measurements Intervals [place] Rate: 87 P: -12 NE: 148 QRS: -30 QRSD: 84 T: -18 QT: 376 QTc: 452 Interpretive Statements Normal sinus rhythm Left axis deviation Left ventricular hypertrophy with repolarization abnormality ( R in aVL ) Electronically Signed On 01-22-2025 6:45:32 PST by Ron Graham MD
--- NOTE | 2025-01-21 18:34 | DI.RAD.S_ITS ---
PROCEDURE: XR CHEST 1V INDICATIONS: Respiratory distress TECHNIQUE: One view of the chest was acquired. COMPARISON: [facility], CR, XR CHEST 1V, 12/15/2024, 20:03. [facility], CR, XR CHEST 1V, 11/20/2024, 20:59. FINDINGS: Surgical changes and devices: Right chest wall battery pack. Lungs and pleura: Low lung volumes with associated prominence of the interstitial lung markings, which appear increased in prominence when compared to prior. No substantial pleural effusion or pneumothorax. Mediastinum: Mild cardiomegaly. Bones and chest wall: No suspicious bony lesions. Chronic left-sided rib fracture deformities. Overlying soft tissues appear unremarkable. IMPRESSION: Low lung volumes with associated prominence of the interstitial lung markings, which appear increased in prominence when compared to prior, possibly secondary to mild pulmonary edema. Dictated by: Asim Alonso M.D. on 01/21/2025 at 21:24 Approved by: Asim Alonso M.D. on 01/21/2025 at 21:28
[2025-01-21 18:40] VITALS: PULSE 91; RESP 22; O2SAT 98
[2025-01-21] MEDS: ALBUTEROL/IPRATROPIUM 3 ML AMPUL 9 ML INH (18:40)
[2025-01-21 18:55] LABS: Base Excess VBG -7.4 mmol/L (0-4); HCO3 VBG 17 mmol/L (24-28); Oxygen Saturation VBG 92 % (70-75); PCO2 VBG 29.0 mmHg (45-50); PO2 VBG 65 mmHg (35-45); Total CO2 VBG 16 mmol/L (24-29); pH VBG 7.37 (7.33-7.43)
[2025-01-21 18:59] LABS: Add Manual Diff / Slide Review NO; Hematocrit 36.3 % (41-53); Hemoglobin 12.2 g/dL (13.5-17.5); Lymphocytes Absolute Auto 2000 /uL (1100-4500); Mean Corpuscular HGB Conc 33.6 % (30-36); Mean Corpuscular Hemoglobin 29.5 PG (26-34); Mean Corpuscular Volume 88.0 fL (80-100); Platelet Count 262 X10^3/uL (150-400)
[2025-01-21 19:10] LABS: INR 1.0 (0.9-1.3); Prothrombin Time 10.9 SECONDS (9.4-12.5)
[2025-01-21] MEDS: PIPERACILLIN/TAZO 4.5 GM in SODIUM CHLORIDE 0.9% 100 ML IV (19:10)
[2025-01-21 19:13] LABS: PTT Partial Thromboplastin Tim 27 SECONDS (25.1-36.5)
[2025-01-21 19:17] LABS: Alanine Aminotransferase 17 IU/L (<50); Albumin 4.3 g/dL (3.5-5.0); Albumin Globulin Ratio 1.7 (1.0-2.8); Alkaline Phosphatase 87 U/L (38-126); Blood Urea Nitrogen 15 mg/dL (9-20); Calcium 9.3 mg/dL (8.4-10.2); Carbon Dioxide 15 mmol/L (22-32); Chloride 106 mmol/L (98-107); Creatine Kinase 57 U/L (55-170); Estimated Glomerular Filt Rate > 60 mL/min (>60); Globulin 2.6 g/dL (1.7-4.1); HEMOLYSIS < 15 (0-50); Potassium 4.2 mmol/L (3.4-5.1); Sodium 137 mmol/L (137-145); Total Protein 6.9 g/dL (6.3-8.2)
[2025-01-21 19:20] LABS: Glucose 225 mg/dL (70-99)
[2025-01-21 19:23] LABS: Lactate (Lactic Acid) 7.3 mmol/L (0.7-2.1)
[2025-01-21 19:29] LABS: Troponin I 0.014 ng/mL (0.01-0.034)
[2025-01-21 19:33] LABS: Procalcitonin 0.077 ng/mL (<0.5)
[2025-01-21 19:56] LABS: Coronavirus NL 63 Not Detected (Not Detect); SARS- CoV-2 Not Detected (Not Detecte)
[2025-01-21 20:05] LABS: NT-proBNP (BNP-Adult 18+) 324 pg/mL (<450)
[2025-01-21 20:30] LABS: Reflexed Lactate in 2 Hours Y
[2025-01-21 21:48] LABS: Lactate 2HR (Lactic Acid Rflx) 1.7 mmol/L (0.7-2.1)
--- NOTE | 2025-01-21 22:05 | DI.CT.S_ITS ---
PROCEDURE: CT ABDOMEN PELVIS W CON INDICATIONS: sepsis, ? source TECHNIQUE: After the administration of intravenous contrast, axial sections acquired from the lung bases to the pubic symphysis. Coronal and sagittal reformats were performed. For radiation dose reduction, the following was used: automated exposure control, adjustment of mA and/or kV according to patient size. COMPARISON: [facility], CT, CT ABDOMEN PELVIS W CON, 10/23/2024, 20:33. FINDINGS: Image quality: Diagnostic. Lower Chest: No significant findings. ABDOMEN: Liver: Subcentimeter hypodensities too small to fully characterize. Gallbladder: No radiopaque gallstones or wall thickening. Biliary ducts: No biliary dilation. Pancreas: No ductal dilation. Spleen: Size is within normal limits. Adrenal Glands: 1.7 cm left adrenal nodule, stable since 2022. Kidneys and Ureters: No hydronephrosis. No solid mass. Cysts and additional subcentimeter hypodensities too small to fully characterize. Nonobstructing punctate renal stones bilaterally. Stomach and Bowel: Normal colonic caliber, without significant wall thickening. Peritoneum: No abnormal intraperitoneal fluid. No free air. Ventral Wall: No significant ventral hernia. Abdominal Nodes: No retroperitoneal or mesenteric adenopathy by size criteria. Vessels: Aorta and inferior vena cava are normal in size. PELVIS: Pelvic Organs: Brachytherapy leads in the prostate. Bladder: Suprapubic catheter is present. Diffuse wall thickening and mild inflammatory change. Pelvic Nodes: No enlarged lymph nodes. Miscellaneous: Small bilateral fat containing inguinal hernias. Bones: No aggressive osseous abnormality. Degenerative changes of the osseous structures. Unchanged T12 and L2 compression deformities IMPRESSION: Suprapubic catheter is present. Diffuse wall thickening and mild inflammatory change of the bladder, similar to prior. Correlate with symptoms and urinalysis for signs of acute cystitis. Otehrwise, no etiology for sepsis is identified. Dictated by: Asim Alonso M.D. on 01/22/2025 at 1:00 Approved by: Asim Alonso M.D. on 01/22/2025 at 1:09
--- NOTE | 2025-01-21 22:05 | DI.CT.S_ITS ---
PROCEDURE: CT ANGIO CHEST PE PROTOCOL INDICATIONS: elevated d dimer, sepsis unclear source TECHNIQUE: After the administration of intravenous contrast, 2 mm thick sections acquired from the pulmonary apices to the posterior costophrenic angles. 3-dimensional maximum intensity projection (MIP) coronal and sagittal reformats were then acquired through the thorax. For radiation dose reduction, the following was used: automated exposure control, adjustment of mA and/or kV according to patient size. COMPARISON: [facility], CT, CT ANGIO CHEST PE PROTOCOL, 12/15/2024, 20:35. FINDINGS: Image quality: Diagnostic. Pulmonary arteries: Pulmonary arteries are normal in size, and demonstrate no intraluminal filling defects to suggest central pulmonary embolism. Lower Neck: No enlarged lymph nodes. Thyroid: No thyroid nodules which require sonographic follow up, per consensus guidelines. Axillae: No enlarged lymph nodes. Chest Wall: Right chest wall battery pack. Bones: Degenerative changes of the spine. No aggressive osseous lesion Lungs and Pleura: No pneumothorax or pleural effusions. No consolidation or suspicious nodules. Scattered micro nodules. Bibasilar atelectasis. Heart: Heart size is normal. No pericardial effusion. Coronary artery calcifications. Thoracic Vessels: No aortic aneurysm. Mediastinum and [place]: No enlarged lymph nodes. Esophagus: No wall thickening. No hiatal hernia. Upper Abdomen: Visualized upper abdomen solid organs and bowel loops appear normal. IMPRESSION: No pulmonary embolus. No acute cardiopulmonary process. Dictated by: Asim Alonso M.D. on 01/22/2025 at 0:54 Approved by: Asim Alonso M.D. on 01/22/2025 at 0:59
[2025-01-21 23:14] VITALS: BP 130/78; PULSE 79; RESP 16; O2SAT 95
[2025-01-22] VITALS (19 sets, daily range): BP systolic 144–171; BP diastolic 67–95; PULSE 68–105; RESP 12–34; TEMP 36.6–36.8; O2SAT 94–100; BMI 34.9
[2025-01-22 00:11] LABS: Appearance Urine UA CLEAR; Bilirubin Urine UA NEGATIVE (NEGATIVE); Color Urine UA YELLOW; Glucose Urine UA 1+ g/dL (Negative); Ketones Urine UA TRACE (NEGATIVE); Leukocyte Esterase Urine UA 2+ (NEGATIVE); Nitrite Urine UA POSITIVE (Negative); Occult Blood Urine UA 3+ (Negative); Protein Urine UA TRACE (Negative); Specific Gravity Urine UA 1.010 (1.000-1.035); Urobilinogen Urine UA 0.2 E.U./dL (0.2); pH Urine UA 6.0 (4.5-8.0)
[2025-01-22 00:19] LABS: Culture Indicated Urine Specimen Cultured
[2025-01-22] MEDS: PIPERACILLIN/TAZO 3.375 GM in SODIUM CHLORIDE 0.9% 100 ML IV ×3 (04:10→20:26)
[2025-01-22] MEDS: SODIUM CHLORIDE 0.9% 1,000 ML 100 ML IV (04:10)
--- NOTE | 2025-01-22 05:11 | PM.HP.1 ---
History of Present Illness History of Present Illness Chief complaint: PC ref, UTI Narrative: 74 years old male with history of hypertension, hyperlipidemia, BPH, COPD, this mellitus type 2 insulin-dependent, presented to the ER with severe dyspnea, worsening of his Parkinson's disease and confusion in the last several days. The patient was diagnosed with UTI on January 18, 2025 growing up E. coli and Proteus sensitive for Zosyn. He also was hospitalized in December for COPD exacerbation. Reports chronic [place] catheter for years due to renal obstruction. Laboratory shows WBC 12.6, hemoglobin 12.2, sodium 137, potassium 4.2, creatinine 0.86, blood sugar 225, UA positive for UTI, lactate 7.3, LFT normal, troponin normal, procalcitonin 0.07. Respiratory viral panel negative. Chest CT angio PE or any acute cardiopulmonary process. Abdominal CT scan shows super catheter present. Diffuse wall thickening and mild inflammatory change of the urinary bladder. ER he was given Tylenol, albuterol, fluid bolus, Zosyn 4.5 g IV. [facility] Medical History Acne Acute on chronic urinary retention Anemia Ankle pain Benign prostatic hyperplasia Chicken pox Congestive heart failure COPD exacerbation GERD (gastroesophageal reflux disease) History of nephrolithiasis History of prostate cancer History of urinary retention Hyperlipidemia Hypertension Impingement of both shoulders Left nephrolithiasis Measles Parkinson's disease Prostate cancer (~2010) Recurrent UTI Shoulder pain Tinea cruris Type 2 diabetes mellitus Urinary retention Urinary retention Surgical History Anesthesia History of knee surgery History of prostate biopsy Kidney stones S/P deep brain stimulator placement (11/2019) Family History Father Stroke Hypertension Bacterial UTI Mother Cancer Sister Hypertension Aunt Diabetes mellitus Uncle Kidney stones Social History marital status: number of children: 3 household members: spouse alcohol intake: never Type(s) of exercise: walking frequency: 1-2 times per week Meds Home Medications and Allergies Home Medications ?Medication ?Instructions ?Recorded ?Confirmed ?Type latanoprost 0.005 % eye drops 1 drp EYE-BOTH DAILY 06/02/22 01/12/25 History aspirin 81 mg tablet,delayed 81 mg PO DAILY 10/21/22 01/12/25 History release (Adult Low Dose Aspirin) acetaminophen 500 mg tablet 500 mg PO Q6H PRN Pain (Scale 04/03/23 01/12/25 History (Acetaminophen Extra Strength) Score 4-6) carbidopa 25 mg-levodopa 100 mg See Rx Instructions .Route .COMPLEX 04/03/23 01/12/25 History tablet cranberry fruit 400 mg capsule 400 mg PO DAILY 04/03/23 01/12/25 History entacapone 200 mg tablet 200 mg PO 5XD 05/18/23 01/12/25 History blood sugar diagnostic (Blood #50 ea 02/16/24 01/12/25 Rx Glucose Test strips) blood-glucose meter #1 ea 02/16/24 01/12/25 Rx lancets 31 gauge (Comfort Touch #100 ea 02/16/24 01/12/25 Rx Ultra Thin Lancets) methenamine hippurate 1 gram tablet 1 g PO BID #180 tabs 04/27/24 01/12/25 Rx metformin 850 mg tablet 850 mg PO TID #240 tabs 05/11/24 01/12/25 Rx potassium chloride 10 mEq 10 meq PO BID 05/25/24 01/12/25 History tablet,extended release temazepam 15 mg capsule 15 mg PO BEDTIME PRN sleep 05/25/24 01/12/25 History timolol maleate 0.25 % eye drops 1 drp EYE-BOTH DAILY 05/25/24 01/12/25 History ipratropium 0.5 mg-albuterol 3 mg 3 ml inhalation Q6H PRN shortness 07/16/24 01/12/25 Rx (2.5 mg base)/3 mL nebulization of breath or wheezing #180 mL soln albuterol sulfate 2.5 mg/3 mL 2.5 mg (3 mL) inhalation QID #75 mL 07/27/24 01/12/25 Rx (0.083 %) solution for nebulization gabapentin 100 mg capsule 100 mg PO 3XD #270 caps 08/14/24 01/12/25 Rx losartan 50 mg tablet 50 mg PO BID #180 tabs 08/14/24 01/12/25 Rx citric ac 1980.6 mg-glucono 59.4 30 ml irrigation TID #900 mL 08/29/24 01/12/25 Rx mg-mag carb 980.4 mg/30 mL irrig.soln (Renacidin) pen needle, diabetic 32 gauge x #100 ea 10/11/24 01/12/25 Rx /32 (Reshma 2nd Gen Pen Needle) atorvastatin 10 mg tablet 10 mg PO DAILY #90 tabs 11/16/24 01/12/25 Rx finasteride 5 mg tablet 5 mg PO DAILY #90 tabs 11/16/24 01/12/25 Rx amlodipine 5 mg tablet 10 mg PO DAILY 11/21/24 01/12/25 History tamsulosin 0.4 mg capsule 0.4 mg PO DAILY 11/21/24 01/12/25 History insulin glargine 100 unit/mL (3 125 unit SUBCUT BEDTIME 12/14/24 01/12/25 History mL) subcutaneous pen (Lantus Solostar U-100 Insulin) nystatin 100,000 unit/gram topical 1 applic topical TID #15 grams 12/14/24 01/12/25 Rx powder albuterol sulfate 2.5 mg/3 mL 2.5 mg (3 mL) inhalation Q4H PRN 12/23/24 01/12/25 Rx (0.083 %) solution for nebulization Shortness Of Breath #90 mL docusate sodium 100 mg capsule 100 mg PO BID #60 caps 12/23/24 01/12/25 Rx polyethylene glycol 3350 17 gram 17 gm PO DAILY PRN Constipation 12/23/24 01/12/25 Rx oral powder packet (Gavilax) #30 ea carbidopa ER 50 mg-levodopa 200 mg 1 tab PO 4XD 01/12/25 01/12/25 History tablet,extended release cephalexin 500 mg capsule 500 mg PO BID #14 caps 01/12/25 Rx omeprazole 20 mg capsule,delayed 20 mg PO DAILY #90 caps 01/14/25 Rx release Allergies Allergy/AdvReac Type Severity Reaction Status Date / Time No Known Drug Allergies Allergy Verified 01/21/25 18:11 Exam Vital Signs (past 8 hours): - 01/21/25 23:14 Pulse Rate 79 Respiratory Rate 16 Blood Pressure 130/78 Pulse Oximetry 95 Oxygen Delivery Method Room Air Oxygen Delivery Method Room Air Objective Labs 01/21/25 18:46 12/15/25 18:46 Labs: Laboratory Results - last 24 hr 01/21/25 01/21/25 01/21/25 18:46 18:50 21:28 WBC 12.6 H RBC 4.13 L Hgb 12.2 L Hct 36.3 L MCV 88.0 MCH 29.5 MCHC 33.6 RDW 15.0 H Plt Count 262 Neut % (Auto) 76.3 H Lymph % (Auto) 16.1 L [place] % (Auto) 5.6 Eos % (Auto) 0.9 L Baso % (Auto) 1.1 Neut # (Auto) 9600 H Lymph # (Auto) 2000 [place] # (Auto) 700 Eos # (Auto) 100 Baso # (Auto) 100 PT 10.9 INR 1.0 APTT 27 D-Dimer 3747 H VBG pH 7.37 VBG pCO2 29.0 L VBG pO2 65 H VBG HCO3 17 L VBG Total CO2 16 L VBG O2 Saturation 92 H VBG Base Excess -7.4 L Sodium 137 Potassium 4.2 Chloride 106 Carbon Dioxide 15 L BUN 15 Creatinine 0.86 Estimated GFR > 60 BUN/Creatinine Ratio 17.4 Glucose 225 H D Lactate 7.3 H* 1.7 Calcium 9.3 Total Bilirubin 0.6 AST 18 ALT 17 Alkaline Phosphatase 87 Total Creatine Kinase 57 Troponin I 0.014 NT-Pro-B Natriuret Pep 324 Total Protein 6.9 Albumin 4.3 Globulin 2.6 Albumin/Globulin Ratio 1.7 Procalcitonin 0.077 Urine Color Urine Appearance Urine pH Ur Specific [place] Urine Protein Urine Glucose (UA) Urine Ketones Urine Occult Blood Urine Nitrate Urine Bilirubin Urine Urobilinogen Ur Leukocyte Esterase Urine RBC Urine WBC Ur Squamous Epith Cells Urine Bacteria Ur Culture Indicated? Vol Urine Centrifuged Chlamy pneumoniae PCR Not detected Adenovirus (PCR) Not detected B. pertussis DNA (PCR) Not detected B.parapertussis DNA PCR Not detected Coronavirus OC43 (PCR) Not detected Coronavirus HKU1 (PCR) Not detected Coronavirus 229E (PCR) Not detected SARS-CoV-2 (PCR) Not detected Coronavirus NL63 (PCR) Not detected Human Metapneumovir PCR Not detected Influenza Type A (PCR) Not detected Influenza Type B (PCR) Not detected M. pneumoniae (PCR) Not detected Parainfluenza 1 (PCR) Not detected Parainfluenza 2 (PCR) Not detected Parainfluenza 3 (PCR) Not detected Parainfluenza 4 (PCR) Not detected RSV (PCR) Not detected Entero/Rhino (PCR) Not detected 01/21/25 23:50 WBC RBC Hgb Hct MCV MCH MCHC RDW Plt Count Neut % (Auto) Lymph % (Auto) [place] % (Auto) Eos % (Auto) Baso % (Auto) Neut # (Auto) Lymph # (Auto) [place] # (Auto) Eos # (Auto) Baso # (Auto) PT INR APTT D-Dimer VBG pH VBG pCO2 VBG pO2 VBG HCO3 VBG Total CO2 VBG O2 Saturation VBG Base Excess Sodium Potassium Chloride Carbon Dioxide BUN Creatinine Estimated GFR BUN/Creatinine Ratio Glucose Lactate Calcium Total Bilirubin AST ALT Alkaline Phosphatase Total Creatine Kinase Troponin I NT-Pro-B Natriuret Pep Total Protein Albumin Globulin Albumin/Globulin Ratio Procalcitonin Urine Color Yellow Urine Appearance Clear Urine pH 6.0 Ur Specific [place] 1.010 Urine Protein Trace H Urine Glucose (UA) 1+ H Urine Ketones Trace H Urine Occult Blood 3+ H Urine Nitrate Positive H Urine Bilirubin Negative Urine Urobilinogen 0.2 Ur Leukocyte Esterase 2+ H Urine RBC None seen Urine WBC 30-100/hpf H Ur Squamous Epith Cells None seen Urine Bacteria Moderate (10-30) H Ur Culture Indicated? Specimen cultured Vol Urine Centrifuged 10ml (spun) Chlamy pneumoniae PCR Adenovirus (PCR) B. pertussis DNA (PCR) B.parapertussis DNA PCR Coronavirus OC43 (PCR) Coronavirus HKU1 (PCR) Coronavirus 229E (PCR) SARS-CoV-2 (PCR) Coronavirus NL63 (PCR) Human Metapneumovir PCR Influenza Type A (PCR) Influenza Type B (PCR) M. pneumoniae (PCR) Parainfluenza 1 (PCR) Parainfluenza 2 (PCR) Parainfluenza 3 (PCR) Parainfluenza 4 (PCR) RSV (PCR) Entero/Rhino (PCR) Assessment & Plan Assessment & Plan narrative: Sepsis due to UTI -Blood culture, urine culture, - Continue Zosyn started from the ED -Monitor for urine retention, check post void residuals. - IV fluids Diabetes mellitus, type II with long-term current use of insulin, uncontrolled with hyperglycemia, -Continue to monitor blood sugar. -Hold metformin during the hospital stay -Continue diabetic diet with sliding scale insulins with NovoLog sliding scale. -hypoglycemia protocol as needed Parkinson disease. Restart home medications. Hypertension. Restart losartan and amlodipine Hyperlipidemia. Restart atorvastatin CAD. Restart aspirin, statins GERD. Restart omeprazole. Chronic constipation. Restart polyethylene glycol as needed BPH. Restart Flomax. Glaucoma. Restart eyedrops. I performed this consultation using real-time telehealth tools, including a live video connection between my location and the patient's location. As the provider for this telehealth service, I attest that I introduced myself to the patient, provided my credentials, disclosed my location, and determined that, based on a review of the patients chart and/or a discussion with members of the patient's treatment team, telemedicine via a real-time, two-way, interactive audio and video platform is an appropriate and effective means of providing this service. The patient and I mutually agree that this visit is appropriate for telemedicine as well. Disclaimer Note: To increase efficiency, your provider may have prepared this document using voice recognition technology. In that case, if a word or phrase is confusing, or does not make sense, this is likely due to a recognition error within the program which was not discovered during the provider?s review. If you believe an error has occurred, please notify your provider?s office at your earliest convenience, so we can correct any mistakes. Time-Based Coding :: 50 min spent with patient and on the chart (including review of chart, obtaining history, exam, reviewing outside data, placing orders, documenting exam and treatment plan, and counseling patient) on 01/21/2025.
[2025-01-22] MEDS: CARBIDOPA-LEVODOPA 25/100 TABLET 3 EACH PO ×2 (06:17→14:13)
[2025-01-22 07:11] LABS: Alanine Aminotransferase 15 IU/L (<50); Albumin 3.5 g/dL (3.5-5.0); Albumin Globulin Ratio 1.4 (1.0-2.8); Alkaline Phosphatase 61 U/L (38-126); Blood Urea Nitrogen 11 mg/dL (9-20); Calcium 8.7 mg/dL (8.4-10.2); Carbon Dioxide 23 mmol/L (22-32); Chloride 111 mmol/L (98-107); Estimated Glomerular Filt Rate > 60 mL/min (>60); Globulin 2.5 g/dL (1.7-4.1); Glucose 137 mg/dL (70-99); HEMOLYSIS < 15 (0-50); Magnesium 1.7 mg/dL (1.6-2.3); Potassium 3.8 mmol/L (3.4-5.1); Sodium 140 mmol/L (137-145); Total Protein 6.0 g/dL (6.3-8.2)
[2025-01-22 07:16] LABS: Cholesterol 108 mg/dL (140-199); HDL Cholesterol 32 mg/dL (40-60); Triglycerides 129 mg/dL (35-150)
[2025-01-22] MEDS: ALBUTEROL 2.5 MG/3 ML NEB (ADULT) INH ×3 (08:37→17:31)
[2025-01-22] MEDS: DOCUSATE 100 MG CAPSULE PO (10:42)
[2025-01-22] MEDS: ENTACAPONE 200 MG TABLET PO ×2 (10:42→18:11)
[2025-01-22] MEDS: GABAPENTIN 100 MG CAPSULE PO ×2 (10:42→14:13)
[2025-01-22] MEDS: TAMSULOSIN 0.4 MG CAPSULE PO (10:42)
[2025-01-22] MEDS: CARBIDOPA-LEVODOPA ER 50/200 TABLET 1 EACH PO ×3 (10:43→17:25)
[2025-01-22] MEDS: ASPIRIN EC 81 MG TABLET PO (10:43)
[2025-01-22] MEDS: CARBIDOPA-LEVODOPA 25/100 TABLET 2.5 EACH PO ×2 (10:49→18:11)
[2025-01-22] MEDS: LOSARTAN 50 MG TABLET PO (10:49)
--- NOTE | 2025-01-22 11:49 | PC.NURSE ---
Report called to admitting nurse.
[2025-01-22] MEDS: INSULIN LISPRO 100 UNIT/ML 3ML VIAL SUBCUT ×3 (12:32→21:53)
--- NOTE | 2025-01-22 16:02 | PM.HP.1 ---
History of Present Illness History of Present Illness Date Patient Seen: 01/22/25 Chief complaint: PC ref, UTI Narrative: From night doctor: 74 years old male with history of hypertension, hyperlipidemia, BPH, COPD, this mellitus type 2 insulin-dependent, presented to the ER with severe dyspnea, worsening of his Parkinson's disease and confusion in the last several days. The patient was diagnosed with UTI on January 18, 2025 growing up E. coli and Proteus sensitive for Zosyn. He also was hospitalized in December for COPD exacerbation. Reports chronic Churchill catheter for years due to renal obstruction. Laboratory shows WBC 12.6, hemoglobin 12.2, sodium 137, potassium 4.2, creatinine 0.86, blood sugar 225, UA positive for UTI, lactate 7.3, LFT normal, troponin normal, procalcitonin 0.07. Respiratory viral panel negative. Chest CT angio PE or any acute cardiopulmonary process. Abdominal CT scan shows super catheter present. Diffuse wall thickening and mild inflammatory change of the urinary bladder. ER he was given Tylenol, albuterol, fluid bolus, Zosyn 4.5 g IV. S: He denies pain, or shortness a breath. He was writhing around which is somewhat typical for him. He was not confused. He was told to come in by his doctor at [facility]. He was received recent antibiotics for urinary tract infection. ROS: All else reviewed and otherwise unremarkable except as noted in the history and physical. O: T 97.9?, BP 164/86, pulse 80, respiration 18, SaO2 100% room air. NAD, alert and oriented, fluent speech, calm. He was writhing around which is fairly normal for him. He was articulate and in no distress. He was a pronounced tremor. Normocephalic skull, EOMI, anicteric sclera, symmetric pupils. Oropharynx unremarkable, no droop. Neck supple, midline trachea, no adenopathy. Lungs clear, normal rate and effort. Heart regular, no murmur gallop or rub. Abdomen is soft, non distended and non tender. Extremities are free of edema. Skin is free of rash or lesions. Joints are not swollen or deformed. Judgment appears to be normal. IMAGING: CTAP: Suprapubic catheter is present. Diffuse wall thickening and mild inflammatory change of the bladder, similar to prior. Correlate with symptoms and urinalysis for signs of acute cystitis. Otehrwise, no etiology for sepsis is identified. Chest CTA: No pulmonary embolus. No acute cardiopulmonary process. LABS: WBC 12.6, hemoglobin 12.2. Venous gas, pH 7.37, pCO2 29. Sodium 140, potassium 3.8, creatinine 0.68. Glucose 172. A/P: 1. Sepsis, improved. 2. UTI, active. 3. DM 2, stable. 4. Parkinson's, stable. 5. Hypertension, stable. 6. HLD, stable. 7. BPH, stable. 8. CAD, stable. PLAN: -continue antibiotics -correctional insulin -resume Parkinson's and hypertension medications -monitor breathing, as he has a history of recurrent respiratory failure requiring BiPAP. Anticipate 2 midnights in the hospital, supports inpatient status Full resuscitation is proxy decision maker [facility] Medical History Tinea cruris Impingement of both shoulders Acute on chronic urinary retention Urinary retention COPD exacerbation History of urinary retention Hyperlipidemia History of nephrolithiasis Left nephrolithiasis Urinary retention Recurrent UTI History of prostate cancer Acne Shoulder pain Ankle pain Measles Chicken pox Prostate cancer (~2010) Anemia Benign prostatic hyperplasia GERD (gastroesophageal reflux disease) Hypertension Type 2 diabetes mellitus Parkinson's disease Congestive heart failure Surgical History S/P deep brain stimulator placement (11/2019) History of prostate biopsy Anesthesia History of knee surgery Kidney stones Family History Father Stroke Hypertension Bacterial UTI Mother Cancer Sister Hypertension Aunt Diabetes mellitus Uncle Kidney stones Social History marital status: number of children: 3 household members: spouse alcohol intake: never Type(s) of exercise: walking frequency: 1-2 times per week Meds Home Medications and Allergies Home Medications ?Medication ?Instructions ?Recorded ?Confirmed ?Type latanoprost 0.005 % eye drops 1 drp EYE-BOTH DAILY 06/02/22 01/22/25 History aspirin 81 mg tablet,delayed 81 mg PO DAILY 10/21/22 01/22/25 History release (Adult Low Dose Aspirin) acetaminophen 500 mg tablet 500 mg PO Q6H PRN Pain (Scale 04/03/23 01/22/25 History (Acetaminophen Extra Strength) Score 4-6) carbidopa 25 mg-levodopa 100 mg See Rx Instructions .Route .COMPLEX 04/03/23 01/22/25 History tablet cranberry fruit 400 mg capsule 400 mg PO DAILY 04/03/23 01/22/25 History entacapone 200 mg tablet 200 mg PO 5XD 05/18/23 01/22/25 History blood sugar diagnostic (Blood #50 ea 02/16/24 01/22/25 Rx Glucose Test strips) blood-glucose meter #1 ea 02/16/24 01/22/25 Rx lancets 31 gauge (Comfort Touch #100 ea 02/16/24 01/22/25 Rx Ultra Thin Lancets) methenamine hippurate 1 gram tablet 1 g PO BID #180 tabs 04/27/24 01/22/25 Rx metformin 850 mg tablet 850 mg PO TID #240 tabs 05/11/24 01/22/25 Rx potassium chloride 10 mEq 10 meq PO BID 05/25/24 01/22/25 History tablet,extended release temazepam 15 mg capsule 15 mg PO BEDTIME PRN sleep 05/25/24 01/22/25 History timolol maleate 0.25 % eye drops 1 drp EYE-BOTH DAILY 05/25/24 01/22/25 History ipratropium 0.5 mg-albuterol 3 mg 3 ml inhalation Q6H PRN shortness 07/16/24 01/22/25 Rx (2.5 mg base)/3 mL nebulization of breath or wheezing #180 mL soln albuterol sulfate 2.5 mg/3 mL 2.5 mg (3 mL) inhalation QID #75 mL 07/27/24 01/22/25 Rx (0.083 %) solution for nebulization gabapentin 100 mg capsule 100 mg PO 3XD #270 caps 08/14/24 01/22/25 Rx losartan 50 mg tablet 50 mg PO BID #180 tabs 08/14/24 01/22/25 Rx citric ac 1980.6 mg-glucono 59.4 30 ml irrigation TID #900 mL 08/29/24 01/22/25 Rx mg-mag carb 980.4 mg/30 mL irrig.soln (Renacidin) pen needle, diabetic 32 gauge x #100 ea 10/11/24 01/22/25 Rx /32 (Reshma 2nd Gen Pen Needle) atorvastatin 10 mg tablet 10 mg PO DAILY #90 tabs 11/16/24 01/22/25 Rx finasteride 5 mg tablet 5 mg PO DAILY #90 tabs 11/16/24 01/22/25 Rx amlodipine 5 mg tablet 10 mg PO DAILY 11/21/24 01/22/25 History tamsulosin 0.4 mg capsule 0.4 mg PO DAILY 11/21/24 01/22/25 History insulin glargine 100 unit/mL (3 60 unit SUBCUT BEDTIME 12/14/24 01/22/25 History mL) subcutaneous pen (Lantus Solostar U-100 Insulin) nystatin 100,000 unit/gram topical 1 applic topical TID #15 grams 12/14/24 01/22/25 Rx powder albuterol sulfate 2.5 mg/3 mL 2.5 mg (3 mL) inhalation Q4H PRN 12/23/24 01/22/25 Rx (0.083 %) solution for nebulization Shortness Of Breath #90 mL docusate sodium 100 mg capsule 100 mg PO BID #60 caps 12/23/24 01/22/25 Rx polyethylene glycol 3350 17 gram 17 gm PO DAILY PRN Constipation 12/23/24 01/22/25 Rx oral powder packet (Gavilax) #30 ea carbidopa ER 50 mg-levodopa 200 mg 1 tab PO 4XD 01/12/25 01/22/25 History tablet,extended release omeprazole 20 mg capsule,delayed 20 mg PO DAILY #90 caps 01/14/25 01/22/25 Rx release insulin glargine 100 unit/mL (3 70 unit SUBCUT DAILY 01/22/25 01/22/25 History mL) subcutaneous pen Allergies Allergy/AdvReac Type Severity Reaction Status Date / Time No Known Drug Allergies Allergy Verified 01/21/25 18:11 Exam Vital Signs (past 8 hours): - 01/22/25 08:18 01/22/25 08:35 01/22/25 12:15 Temperature 97.9 F Pulse Rate 77 93 H 79 Respiratory Rate 16 18 24 Blood Pressure 144/67 H 164/86 H Pulse Oximetry 96 98 97 Oxygen Delivery Method Room Air Room Air 01/22/25 12:21 01/22/25 13:55 Temperature Pulse Rate 80 Respiratory Rate 18 Blood Pressure Pulse Oximetry 100 Oxygen Delivery Method Room Air Room Air Oxygen Delivery Method Room Air Objective Labs 01/21/25 18:46 01/22/25 06:37 Labs: Laboratory Results - last 24 hr 01/21/25 01/21/25 01/21/25 18:46 18:50 21:28 WBC 12.6 H RBC 4.13 L Hgb 12.2 L Hct 36.3 L MCV 88.0 MCH 29.5 MCHC 33.6 RDW 15.0 H Plt Count 262 Neut % (Auto) 76.3 H Lymph % (Auto) 16.1 L [place] % (Auto) 5.6 Eos % (Auto) 0.9 L Baso % (Auto) 1.1 Neut # (Auto) 9600 H Lymph # (Auto) 2000 [place] # (Auto) 700 Eos # (Auto) 100 Baso # (Auto) 100 PT 10.9 INR 1.0 APTT 27 D-Dimer 3747 H VBG pH 7.37 VBG pCO2 29.0 L VBG pO2 65 H VBG HCO3 17 L VBG Total CO2 16 L VBG O2 Saturation 92 H VBG Base Excess -7.4 L Sodium 137 Potassium 4.2 Chloride 106 Carbon Dioxide 15 L BUN 15 Creatinine 0.86 Estimated GFR > 60 BUN/Creatinine Ratio 17.4 Glucose 225 H D POC Whole Bld Glucose Lactate 7.3 H* 1.7 Calcium 9.3 Magnesium Total Bilirubin 0.6 AST 18 ALT 17 Alkaline Phosphatase 87 Total Creatine Kinase 57 Troponin I 0.014 NT-Pro-B Natriuret Pep 324 Total Protein 6.9 Albumin 4.3 Globulin 2.6 Albumin/Globulin Ratio 1.7 Triglycerides Cholesterol LDL Cholesterol, Calc HDL Cholesterol Procalcitonin 0.077 Urine Color Urine Appearance Urine pH Ur Specific [place] Urine Protein Urine Glucose (UA) Urine Ketones Urine Occult Blood Urine Nitrate Urine Bilirubin Urine Urobilinogen Ur Leukocyte Esterase Urine RBC Urine WBC Ur Squamous Epith Cells Urine Bacteria Ur Culture Indicated? Vol Urine Centrifuged Chlamy pneumoniae PCR Not detected Adenovirus (PCR) Not detected B. pertussis DNA (PCR) Not detected B.parapertussis DNA PCR Not detected Coronavirus OC43 (PCR) Not detected Coronavirus HKU1 (PCR) Not detected Coronavirus 229E (PCR) Not detected SARS-CoV-2 (PCR) Not detected Coronavirus NL63 (PCR) Not detected Human Metapneumovir PCR Not detected Influenza Type A (PCR) Not detected Influenza Type B (PCR) Not detected M. pneumoniae (PCR) Not detected Parainfluenza 1 (PCR) Not detected Parainfluenza 2 (PCR) Not detected Parainfluenza 3 (PCR) Not detected Parainfluenza 4 (PCR) Not detected RSV (PCR) Not detected Entero/Rhino (PCR) Not detected 01/21/25 01/22/25 01/22/25 23:50 06:37 08:27 WBC RBC Hgb Hct MCV MCH MCHC RDW Plt Count Neut % (Auto) Lymph % (Auto) [place] % (Auto) Eos % (Auto) Baso % (Auto) Neut # (Auto) Lymph # (Auto) [place] # (Auto) Eos # (Auto) Baso # (Auto) PT INR APTT D-Dimer VBG pH VBG pCO2 VBG pO2 VBG HCO3 VBG Total CO2 VBG O2 Saturation VBG Base Excess Sodium 140 Potassium 3.8 Chloride 111 H Carbon Dioxide 23 BUN 11 Creatinine 0.68 Estimated GFR > 60 BUN/Creatinine Ratio 16.2 Glucose 137 H POC Whole Bld Glucose 172 H Lactate Calcium 8.7 Magnesium 1.7 Total Bilirubin 0.5 AST 10 L ALT 15 Alkaline Phosphatase 61 Total Creatine Kinase Troponin I NT-Pro-B Natriuret Pep Total Protein 6.0 L Albumin 3.5 Globulin 2.5 Albumin/Globulin Ratio 1.4 Triglycerides 129 Cholesterol 108 L LDL Cholesterol, Calc 50 HDL Cholesterol 32 L Procalcitonin Urine Color Yellow Urine Appearance Clear Urine pH 6.0 Ur Specific [place] 1.010 Urine Protein Trace H Urine Glucose (UA) 1+ H Urine Ketones Trace H Urine Occult Blood 3+ H Urine Nitrate Positive H Urine Bilirubin Negative Urine Urobilinogen 0.2 Ur Leukocyte Esterase 2+ H Urine RBC None seen Urine WBC 30-100/hpf H Ur Squamous Epith Cells None seen Urine Bacteria Moderate (10-30) H Ur Culture Indicated? Specimen cultured Vol Urine Centrifuged 10ml (spun) Chlamy pneumoniae PCR Adenovirus (PCR) B. pertussis DNA (PCR) B.parapertussis DNA PCR Coronavirus OC43 (PCR) Coronavirus HKU1 (PCR) Coronavirus 229E (PCR) SARS-CoV-2 (PCR) Coronavirus NL63 (PCR) Human Metapneumovir PCR Influenza Type A (PCR) Influenza Type B (PCR) M. pneumoniae (PCR) Parainfluenza 1 (PCR) Parainfluenza 2 (PCR) Parainfluenza 3 (PCR) Parainfluenza 4 (PCR) RSV (PCR) Entero/Rhino (PCR) 01/22/25 12:18 WBC RBC Hgb Hct MCV MCH MCHC RDW Plt Count Neut % (Auto) Lymph % (Auto) [place] % (Auto) Eos % (Auto) Baso % (Auto) Neut # (Auto) Lymph # (Auto) [place] # (Auto) Eos # (Auto) Baso # (Auto) PT INR APTT D-Dimer VBG pH VBG pCO2 VBG pO2 VBG HCO3 VBG Total CO2 VBG O2 Saturation VBG Base Excess Sodium Potassium Chloride Carbon Dioxide BUN Creatinine Estimated GFR BUN/Creatinine Ratio Glucose POC Whole Bld Glucose 246 H Lactate Calcium Magnesium Total Bilirubin AST ALT Alkaline Phosphatase Total Creatine Kinase Troponin I NT-Pro-B Natriuret Pep Total Protein Albumin Globulin Albumin/Globulin Ratio Triglycerides Cholesterol LDL Cholesterol, Calc HDL Cholesterol Procalcitonin Urine Color Urine Appearance Urine pH Ur Specific [place] Urine Protein Urine Glucose (UA) Urine Ketones Urine Occult Blood Urine Nitrate Urine Bilirubin Urine Urobilinogen Ur Leukocyte Esterase Urine RBC Urine WBC Ur Squamous Epith Cells Urine Bacteria Ur Culture Indicated? Vol Urine Centrifuged Chlamy pneumoniae PCR Adenovirus (PCR) B. pertussis DNA (PCR) B.parapertussis DNA PCR Coronavirus OC43 (PCR) Coronavirus HKU1 (PCR) Coronavirus 229E (PCR) SARS-CoV-2 (PCR) Coronavirus NL63 (PCR) Human Metapneumovir PCR Influenza Type A (PCR) Influenza Type B (PCR) M. pneumoniae (PCR) Parainfluenza 1 (PCR) Parainfluenza 2 (PCR) Parainfluenza 3 (PCR) Parainfluenza 4 (PCR) RSV (PCR) Entero/Rhino (PCR) Assessment & Plan Time-Based Coding :: 35 min spent with patient and on the chart (including review of chart, obtaining history, exam, reviewing outside data, placing orders, documenting exam and treatment plan, and counseling patient) on 01/22. Quality MIPS - Admit I confirm the patient?s Advance Care Plan is present, Code status is documented, Surrogate decision maker is in patient?s record [If Yes, STOP here]: Yes [facility] - Meds 'Current medications' to include all prescriptions, [id number] products, herbals, cannabis/cannabidiol products, and vitamin/mineral/dietary (nutritional) supplements. I have utilized all available resources to obtain, update, or review the patient?s current medications. [If Yes, STOP here]: Yes
--- NOTE | 2025-01-22 16:40 | DIET.CONS ---
Dietary Consultation Note Admission Date: 01/22/2025 02:16 Assessment: 74 y M admitted for sepsis/UTI . Dietitian consulted for high basal insulin dose. Pt on 60 units lantus. Met with pt who confirms he does do 60 units. Hx of doing 60 units lantus in morning as well. Reports occasionally having lows in the night - 45-90 (Provided educ that lows are <70). His carbohydrate amount varies at meals dependent on how hungry he is. He treats lows with rule of 15s. Has done DM education before and aware of CHO portions to aim for, pairing with protein. Pt has a CGM on but is unable to find the monitor/display for us to review his BG patterns. Ht: 165.1 cm Wt: 98 kg BMI: 34.9 Last BM: 01/20/25 (01/22/25 03:17) MNA: Bob Score: 14 Diet: 01/22/25 Breakfast Carbohydrate Consistent Diet Diet Modifications: Carbohydrate level: Medium (3 CHO) Reflex DM orders: No Labs: RBC 4.13 X10^6/uL (4.5-5.9) L 01/21/25 18:46 Hgb 12.2 g/dL (13.5-17.5) L 01/21/25 18:46 Hct 36.3 % (41-53) L 01/21/25 18:46 Creatinine 0.68 mg/dL (0.66-1.25) 01/22/25 06:37 Lactate 1.7 mmol/L (0.7-2.1) 01/21/25 21:28 NT-Pro-B Natriuret Pep 324 pg/mL (<450) 01/21/25 18:46 Interventions: Consider adjusting to lower basal insulin with hx of lows - spoke to pharmacist Monitoring/Evaluations: Check FBG in morning, BG, PO intakes Electronically Signed by: Zainab Berumen 01/22/25 16:40 Clinical Dietitian [address] [id number]
--- NOTE | 2025-01-22 19:02 | P.EN_ITS ---
Event Note Date Patient Seen: 01/22/25 Time Patient Seen: 18:30 Event Note (Rapid Response, Code, or fall): ICU transfer: The patient experienced respiratory decompensation, with significant tachypnea, labored breathing and tachycardia. Oxygen saturations were in the 85% range. He was transferred urgently to the ICU for BiPAP support, noting that this patient has tended to decompensate within the 1st 12 hours of admission typically and required BiPAP for COPD. After initiation of B iPAP the patient appeared considerably more comfortable. He was administered 0.5 mg of IV lorazepam which provided further comfort. His was updated at bedside. Rounds conducted with nursing and Respiratory therapy.
[2025-01-22] MEDS: dexmedeTOMIDine in 0.9 % NaCL 400 MCG/100 ML PLAST..BAG IV (19:20)
[2025-01-22] MEDS: hydrALAZINE 20 MG/ML VIAL 10 MG IV (21:37)
[2025-01-22] MEDS: INSULIN GLARGINE 100 UNIT/ML 3ML PEN 60 UNIT SUBCUT (21:57)
[2025-01-22] MEDS: dexmedeTOMIDine in 0.9 % NaCL 400 MCG/100 ML PLAST..BAG 29.4 MCG IV (22:46)
[2025-01-23] VITALS (57 sets, daily range): BP systolic 69–173; BP diastolic 41–95; PULSE 50–147; RESP 10–50; TEMP 36–36.7; O2SAT 85–100
[2025-01-23] MEDS: PIPERACILLIN/TAZO 3.375 GM in SODIUM CHLORIDE 0.9% 100 ML IV ×3 (02:18→18:44)
[2025-01-23] MEDS: dexmedeTOMIDine in 0.9 % NaCL 400 MCG/100 ML PLAST..BAG 26.95 MCG IV (02:18)
[2025-01-23 04:30] LABS: Hematocrit 37.4 % (41-53); Hemoglobin 12.7 g/dL (13.5-17.5); Mean Corpuscular HGB Conc 34.1 % (30-36); Mean Corpuscular Hemoglobin 29.8 PG (26-34); Mean Corpuscular Volume 87.5 fL (80-100); Platelet Count 198 X10^3/uL (150-400)
[2025-01-23 04:39] LABS: Alanine Aminotransferase 5 IU/L (<50); Albumin 3.8 g/dL (3.5-5.0); Albumin Globulin Ratio 1.4 (1.0-2.8); Alkaline Phosphatase 62 U/L (38-126); Blood Urea Nitrogen 9 mg/dL (9-20); Calcium 8.9 mg/dL (8.4-10.2); Carbon Dioxide 24 mmol/L (22-32); Chloride 110 mmol/L (98-107); Estimated Glomerular Filt Rate > 60 mL/min (>60); Globulin 2.8 g/dL (1.7-4.1); Glucose 164 mg/dL (70-99); HEMOLYSIS < 15 (0-50); Magnesium 1.7 mg/dL (1.6-2.3); Potassium 3.6 mmol/L (3.4-5.1); Sodium 140 mmol/L (137-145); Total Protein 6.6 g/dL (6.3-8.2)
[2025-01-23] MEDS: dexmedeTOMIDine in 0.9 % NaCL 400 MCG/100 ML PLAST..BAG 17.15 MCG IV (06:15)
--- NOTE | 2025-01-23 06:49 | PC.NURSE ---
Helpdesk Specialist Note-Received patient while he was very agitated, not tolerating Bipap. Parkinsons tremors were severe at the time and kept attempting to remove mask and IV sites. IV Ativan given and Precedex gtt started, which was slow to take effect. Ultimately, hands mitts were placed on patient around 2130 with Precedex at 1.2mcg/kg/hr. Was able to titrate gtt by am, see Emar and vital trends, mitts removed.
[2025-01-23] MEDS: SODIUM CHLORIDE 0.9% 1,000 ML 100 ML IV (07:54)
[2025-01-23] MEDS: INSULIN LISPRO 100 UNIT/ML 3ML VIAL SUBCUT ×4 (07:55→22:02)
--- NOTE | 2025-01-23 08:09 | P.PN_ITS ---
Subjective Subjective Date Patient Seen: 01/23/25 Interval history: 74 years old male with history of hypertension, hyperlipidemia, BPH, COPD, this mellitus type 2 insulin-dependent, presented to the ER with severe dyspnea, worsening of his Parkinson's disease and confusion in the last several days. The patient was diagnosed with UTI on January 18, 2025 growing up E. coli and Proteus sensitive for Zosyn. He also was hospitalized in December for COPD exacerbation. Reports chronic Churchill catheter for years due to renal obstruction. Laboratory shows WBC 12.6, hemoglobin 12.2, sodium 137, potassium 4.2, creatinine 0.86, blood sugar 225, UA positive for UTI, lactate 7.3, LFT normal, troponin normal, procalcitonin 0.07. Respiratory viral panel negative. Chest CT angio PE or any acute cardiopulmonary process. Abdominal CT scan shows super catheter present. Diffuse wall thickening and mild inflammatory change of the urinary bladder. ER he was given Tylenol, albuterol, fluid bolus, Zosyn 4.5 g IV. 01/22: He denies pain, or shortness a breath. He was writhing around which is somewhat typical for him. He was not confused. He was told to come in by his doctor at [facility]. He was received recent antibiotics for urinary tract infection. 01/23: His movement disorder flared the last night and he ended up needing to be put on BiPAP due to hypoxia. He is also on Precedex and is sedated/sleeping when I see him. Per Dr. Campa: The patient experienced respiratory decompensation, with significant tachypnea, labored breathing and tachycardia. Oxygen saturations were in the 85% range. He was transferred urgently to the ICU for BiPAP support, noting that this patient has tended to decompensate within the 1st 12 hours of admission typically and required BiPAP for COPD. After initiation of BiPAP the patient appeared considerably more comfortable. He was administered 0.5 mg of IV lorazepam which provided further comfort. Sedated on BIPAP/Precedex Normocephalic skull Abdomen is obese. Yellow urine in the Churchill bag. Lungs clear, normal rate and effort. Heart regular, no murmur gallop or rub. Extremities are free of edema. Skin is free of rash or lesions. Joints are not swollen or deformed. IMAGING: CTAP: Suprapubic catheter is present. Diffuse wall thickening and mild inflammatory change of the bladder, similar to prior. Correlate with symptoms and urinalysis for signs of acute cystitis. Otehrwise, no etiology for sepsis is identified. Chest CTA: No pulmonary embolus. No acute cardiopulmonary process. LABS: WBC 12.6, hemoglobin 12.2. Venous gas, pH 7.37, pCO2 29. Sodium 140, potassium 3.8, creatinine 0.68. Glucose 172. A/P: 1. Sepsis 2. UTI, active. 3. DM 2, stable. 4. Parkinson's, stable. 5. Hypertension, stable. 6. HLD, stable. 7. BPH, stable. 8. CAD, stable. 9. Respiratory Decompensation PLAN: -continue BIPAP -wean Precedex -continue antibiotics -correctional insulin -resume Parkinson's and hypertension medications Full resuscitation is proxy decision maker Exam Vital Signs (past 8 hours): - 01/23/25 00:30 01/23/25 00:44 01/23/25 01:00 Temperature 98.1 F Pulse Rate 64 Respiratory Rate 14 Blood Pressure 135/60 Pulse Oximetry 100 Oxygen Delivery Method BiPAP Oxygen Flow Rate 40 Fraction of Inspired Oxygen 40 01/23/25 02:00 01/23/25 03:00 01/23/25 04:00 Temperature 97.9 F Pulse Rate 62 61 57 L Respiratory Rate 17 12 16 Blood Pressure 153/68 H 138/63 167/81 H Pulse Oximetry 100 100 100 Oxygen Delivery Method Oxygen Flow Rate Fraction of Inspired Oxygen 40 40 40 01/23/25 04:00 01/23/25 04:11 01/23/25 07:00 Temperature Pulse Rate 52 L Respiratory Rate 14 Blood Pressure 156/73 H Pulse Oximetry 100 Oxygen Delivery Method BiPAP Oxygen Flow Rate Fraction of Inspired Oxygen 30 Fraction of Inspired Oxygen 30 Oxygen Delivery Method BiPAP Oxygen Flow Rate 40 Objective Labs 01/23/25 03:12 01/23/25 03:12 Labs: Laboratory Results - last 24 hr 01/22/25 01/22/25 01/22/25 08:27 12:18 17:08 WBC RBC Hgb Hct MCV MCH MCHC RDW Plt Count Sodium Potassium Chloride Carbon Dioxide BUN Creatinine Estimated GFR BUN/Creatinine Ratio Glucose POC Whole Bld Glucose 172 H 246 H 220 H Calcium Magnesium Total Bilirubin AST ALT Alkaline Phosphatase Total Protein Albumin Globulin Albumin/Globulin Ratio 12/01/22/25 01/23/25 18:57 21:35 03:12 WBC 7.5 RBC 4.27 L Hgb 12.7 L Hct 37.4 L MCV 87.5 MCH 29.8 MCHC 34.1 RDW 15.5 H Plt Count 198 Sodium 140 Potassium 3.6 Chloride 110 H Carbon Dioxide 24 BUN 9 Creatinine 0.69 Estimated GFR > 60 BUN/Creatinine Ratio 13.0 Glucose 164 H POC Whole Bld Glucose 203 H 203 H Calcium 8.9 Magnesium 1.7 Total Bilirubin 0.5 AST 15 L ALT 5 Alkaline Phosphatase 62 Total Protein 6.6 Albumin 3.8 Globulin 2.8 Albumin/Globulin Ratio 1.4 01/23/25 07:29 WBC RBC Hgb Hct MCV MCH MCHC RDW Plt Count Sodium Potassium Chloride Carbon Dioxide BUN Creatinine Estimated GFR BUN/Creatinine Ratio Glucose POC Whole Bld Glucose 178 H Calcium Magnesium Total Bilirubin AST ALT Alkaline Phosphatase Total Protein Albumin Globulin Albumin/Globulin Ratio PFSH Medical History Tinea cruris Impingement of both shoulders Acute on chronic urinary retention Urinary retention COPD exacerbation History of urinary retention Hyperlipidemia History of nephrolithiasis Left nephrolithiasis Urinary retention Recurrent UTI History of prostate cancer Acne Shoulder pain Ankle pain Measles Chicken pox Prostate cancer (~2010) Anemia Benign prostatic hyperplasia GERD (gastroesophageal reflux disease) Hypertension Type 2 diabetes mellitus Parkinson's disease Congestive heart failure Surgical History S/P deep brain stimulator placement (11/2019) History of prostate biopsy Anesthesia History of knee surgery Kidney stones Family History Father Stroke Hypertension Bacterial UTI Mother Cancer Sister Hypertension Aunt Diabetes mellitus Uncle Kidney stones Social History marital status: number of children: 3 household members: spouse alcohol intake: never Type(s) of exercise: walking frequency: 1-2 times per week Assessment & Plan Time-Based Coding :: [TOTAL MINUTES] spent with patient and on the chart (including review of chart, obtaining history, exam, reviewing outside data, placing orders, documenting exam and treatment plan, and counseling patient) on [DATE].
--- NOTE | 2025-01-23 09:28 | PC.NURSE ---
0920 PT PULLING OFF BIPAP AT THIS TIME. PLACED ON 2L NC. 100% SPO2. ABLE TO ANSWER QUESTIONS AND MAKE NEEDS KNOWN. RT JOSE MADE AWARE.
[2025-01-23] MEDS: ALBUTEROL 2.5 MG/3 ML NEB (ADULT) INH ×4 (09:55→19:04)
[2025-01-23] MEDS: LOSARTAN 50 MG TABLET PO ×2 (13:36→22:35)
[2025-01-23] MEDS: TAMSULOSIN 0.4 MG CAPSULE PO (13:36)
[2025-01-23] MEDS: MAGNESIUM CHLORIDE 64 MG TABLET 128 MG PO (13:37)
[2025-01-23] MEDS: GABAPENTIN 100 MG CAPSULE PO ×2 (13:37→21:55)
[2025-01-23] MEDS: ASPIRIN EC 81 MG TABLET PO (13:37)
[2025-01-23] MEDS: INSULIN GLARGINE 100 UNIT/ML 3ML PEN 30 UNIT SUBCUT (13:38)
[2025-01-23] MEDS: CARBIDOPA-LEVODOPA 25/100 TABLET 3 EACH PO (13:41)
[2025-01-23] MEDS: ENTACAPONE 200 MG TABLET PO ×3 (13:41→21:56)
[2025-01-23] MEDS: CARBIDOPA-LEVODOPA ER 50/200 TABLET 1 EACH PO ×3 (13:42→21:55)
[2025-01-23] MEDS: ENOXAPARIN 40 MG/0.4 ML SYRINGE SUBCUT (15:23)
--- NOTE | 2025-01-23 18:20 | CM.DANOTE ---
DCP Assessment Note: Pt is a 74yo M, resident [facility], is admitted for UTI, sepsis. Hx of Parkinson's. Pt lives in a house with his , Madhu. Pt's Primary Care Provider is Dr. Ravindra Goldsmith and insurance is Medicare and [employer]. Reviewed chart and discussed with multidisciplinary team pt's medical status and initial discharge needs. Per hospitalist, pt agreeable to Hospice plan and requests for referral to be sent. DCP met w/patient at bedside; introduced self and role. Patient was found in bed, alert and oriented, cooperative with assessment. Pt confirmed living situation and good support in spouse. Pt expressed preference in discharge home with a new Hospice referral. Pt is currently with [facility] and they were already in the process of assisting with transition to Hospice. AIRPLANE COVER MAKER educated pt and on coordination of Hospice (info call, DME delivery, postal transportation clerk at home to start care) and answered all questions to best of ability. Pt and agreeable to her transporting home if pt comfortable, also open to BLS transport if necessary. AIRPLANE COVER MAKER sent referral to [facility] the via fax. AIRPLANE COVER MAKER notified RN and hospitalist of referral sent. Plan: Anticipating discharge home with Hospice the starting care when DME delivered and start of care date established. CM team will follow closely for coordination of discharge plans. Maggie Fernandez MANAGER STUDY Discharge Planning/Care Management CM Discharge Assessment Start: 01/22/25 03:17 Freq: Status: Active Protocol: Document 01/23/25 18:14 MW (Rec: 01/23/25 18:17 MW [id number]) Discharge Planning Assessment Assigned Discharge RENATE Serrano Bag Cutter Provider Dr. Ravindra Goldsmith Insurance [employer],Medicare DPOA/Assigned Madhu, Spouse Designee Name Contact Information [phone] Advance Directives? No Advance Directives No on File History Provided By Patient,Significant Other,Medical Record Prior Living House Arrangements Household Members spouse Type of Relies on Others transporation used prior to admit Independent with ADL No 's Is patient alert and Yes oriented? Needs Assistance Bathing,Grooming,Meal Prep,Toileting,Managing With Medications,Home Chores / Shopping DME Already Rented / Wheelchair Owned Patient/Family Home with Home Health Preference Discharge Plan Hospice Transportation vs. BLS Arrangement Referrals Initiated Other Additional Comment Hospice of the Review Status In Process Please Provide Date 01/23/25 Initial DC Assessment Was Performed Next Review Type Continued Stay Review
[2025-01-23] MEDS: CARBIDOPA-LEVODOPA 25/100 TABLET 2.5 EACH PO ×2 (18:43→22:19)
[2025-01-23] MEDS: INSULIN GLARGINE 100 UNIT/ML 3ML PEN 40 UNIT SUBCUT (22:01)
[2025-01-23] MEDS: ATORVASTATIN 20 MG TABLET 10 MG PO (22:20)
[2025-01-24] VITALS (24 sets, daily range): BP systolic 115–151; BP diastolic 63–74; PULSE 41–99; RESP 22–32; TEMP 36.6–36.9; O2SAT 56–99
[2025-01-24] MEDS: PANTOPRAZOLE DR 20 MG TABLET PO (06:23)
[2025-01-24] MEDS: CARBIDOPA-LEVODOPA 25/100 TABLET 3 EACH PO ×2 (06:23→14:48)
[2025-01-24] MEDS: ENTACAPONE 200 MG TABLET PO ×5 (06:23→22:36)
--- NOTE | 2025-01-24 06:46 | PC.NURSE ---
At around 2000H patient extremely restless with severe tremors BUE and torso, strip telemetry leads, pulled out PIV, hospitalist on duty updated, okay to keep off telemetry, hold PIV insertion, order for Ativan IM for agitation.
[2025-01-24] MEDS: ALBUTEROL 2.5 MG/3 ML NEB (ADULT) INH ×2 (07:52→18:36)
--- NOTE | 2025-01-24 07:54 | P.PN_ITS ---
Subjective Subjective Date Patient Seen: 01/24/25 Interval history: This is a 74 year old male with history of hypertension, hyperlipidemia, BPH, COPD, this mellitus type 2 insulin-dependent, presented to the ER with severe dyspnea, worsening of his Parkinson's disease and confusion in the last several days. The patient was diagnosed with UTI on January 18, 2025 growing up E. coli and Proteus sensitive for Zosyn. He also was hospitalized in December for COPD exacerbation. Reports chronic Churchill catheter for years due to renal obstruction. Laboratory shows WBC 12.6, hemoglobin 12.2, sodium 137, potassium 4.2, creatinine 0.86, blood sugar 225, UA positive for UTI, lactate 7.3, LFT normal, troponin normal, procalcitonin 0.07. Respiratory viral panel negative. Chest CT angio PE or any acute cardiopulmonary process. Abdominal CT scan shows super catheter present. Diffuse wall thickening and mild inflammatory change of the urinary bladder. ER he was given Tylenol, albuterol, fluid bolus, Zosyn 4.5 g IV. 01/22: He denies pain, or shortness a breath. He was writhing around which is somewhat typical for him. He was not confused. He was told to come in by his doctor at [facility]. He was received recent antibiotics for urinary tract infection. 01/23: His movement disorder flared the last night and he ended up needing to be put on BiPAP due to hypoxia. He is also on Precedex and is sedated/sleeping when I see him. Per Dr. Campa: The patient experienced respiratory decompensation, with significant tachypnea, labored breathing and tachycardia. Oxygen saturations were in the 85% range. He was transferred urgently to the ICU for BiPAP support, noting that this patient has tended to decompensate within the 1st 12 hours of admission typically and required BiPAP for COPD. After initiation of BiPAP the patient appeared considerably more comfortable. He was administered 0.5 mg of IV lorazepam which provided further comfort. 01/24: He continues to be very tremulous with an almost chorea like flailing movement of his extremities. He has pulled his IVs out. He only has a tremor of the left foot when I see him. Nursing has changed the settings on his deep brain stimulator without any significant change in the appearance of the tremor. His wheezing is quite impressive but is only in the upper airway. He is now on meropenem IV after E coli ESBL was identified in the 01/21 urine culture. We will also do a CT of the neck to rule out occult tracheal obstruction. Hospice informational visit will be done later today and the plan is discharge home on hospice. Normocephalic skull Abdomen is obese. Yellow urine in the Churchill bag. Lungs clear, normal rate and effort. Upper airway wheezing noted. Heart regular, no murmur gallop or rub. Extremities are free of edema. Skin is free of rash or lesions. Joints are not swollen or deformed. Left foot is tremulous. Hands are not tremulous during my visit. IMAGING: CTAP: Suprapubic catheter is present. Diffuse wall thickening and mild inflammatory change of the bladder, similar to prior. Correlate with symptoms and urinalysis for signs of acute cystitis. Otehrwise, no etiology for sepsis is identified. Chest CTA: No pulmonary embolus. No acute cardiopulmonary process. LABS: WBC 12.6, hemoglobin 12.2. Venous gas, pH 7.37, pCO2 29. Sodium 140, potassium 3.8, creatinine 0.68. Glucose 172. A/P: 1. Sepsis 2. UTI ESBL E coli, meropenem sensitive 3. DM 2, stable. 4. Parkinson's, unstable 5. Hypertension, stable. 6. HLD, stable. 7. BPH, stable. 8. CAD, stable. 9. Respiratory Decompensation PLAN: -now off BiPAP/Precedex -change to meropenem IV. -order soft tissue neck CT -resume Parkinson's and hypertension medications -hospice informational visit today. The plan is for discharge home on hospice on 01/26. Full resuscitation is proxy decision maker Exam Vital Signs (past 8 hours): - 01/24/25 01:00 01/24/25 02:00 01/24/25 05:00 Pulse Rate 90 Respiratory Rate Blood Pressure 115/74 Pulse Oximetry 56 L Oxygen Delivery Method Room Air Room Air Oxygen Flow Rate Fraction of Inspired Oxygen 01/24/25 07:45 Pulse Rate 90 Respiratory Rate 22 Blood Pressure Pulse Oximetry 99 Oxygen Delivery Method Room Air Oxygen Flow Rate 0 Fraction of Inspired Oxygen 21 Fraction of Inspired Oxygen 21 SaO2/FiO2 Ratio 466 Oxygen Delivery Method Room Air Oxygen Flow Rate 0 Objective Labs 01/23/25 03:12 01/24/25 09:15 Labs: Laboratory Results - last 24 hr 01/23/25 01/23/25 01/23/25 11:26 16:34 21:23 POC Whole Bld Glucose 166 H 192 H 219 H PFSH Medical History Tinea cruris Impingement of both shoulders Acute on chronic urinary retention Urinary retention COPD exacerbation History of urinary retention Hyperlipidemia History of nephrolithiasis Left nephrolithiasis Urinary retention Recurrent UTI History of prostate cancer Acne Shoulder pain Ankle pain Measles Chicken pox Prostate cancer (~2010) Anemia Benign prostatic hyperplasia GERD (gastroesophageal reflux disease) Hypertension Type 2 diabetes mellitus Parkinson's disease Congestive heart failure Surgical History S/P deep brain stimulator placement (11/2019) History of prostate biopsy Anesthesia History of knee surgery Kidney stones Family History Father Stroke Hypertension Bacterial UTI Mother Cancer Sister Hypertension Aunt Diabetes mellitus Uncle Kidney stones Social History marital status: number of children: 3 household members: spouse alcohol intake: never Type(s) of exercise: walking frequency: 1-2 times per week Assessment & Plan Time-Based Coding :: [TOTAL MINUTES] spent with patient and on the chart (including review of chart, obtaining history, exam, reviewing outside data, placing orders, documenting exam and treatment plan, and counseling patient) on [DATE].
[2025-01-24] MEDS: ASPIRIN EC 81 MG TABLET PO (09:05)
[2025-01-24] MEDS: GABAPENTIN 100 MG CAPSULE PO ×3 (09:05→21:31)
[2025-01-24] MEDS: TAMSULOSIN 0.4 MG CAPSULE PO (09:05)
[2025-01-24] MEDS: LOSARTAN 50 MG TABLET PO ×2 (09:05→21:45)
[2025-01-24] MEDS: DOCUSATE 100 MG CAPSULE PO ×2 (09:05→21:31)
[2025-01-24] MEDS: CARBIDOPA-LEVODOPA ER 50/200 TABLET 1 EACH PO ×4 (09:06→21:31)
[2025-01-24] MEDS: ENOXAPARIN 40 MG/0.4 ML SYRINGE SUBCUT (09:06)
[2025-01-24] MEDS: INSULIN GLARGINE 100 UNIT/ML 3ML PEN 30 UNIT SUBCUT (09:06)
--- NOTE | 2025-01-24 09:29 | CM.DPC ---
Addendum entered by RENATE Selby 01/24/25 16:00: ADD: Spoke to Marian from [facility] after bedside info visit and pt and spouse signed consents and plan is for pt to discharge home Tuesday late morning before 1300 with [facility] to have RN do SOC in the home around 1400. Updated MD. CALDERON to determine stretcher transport vs spouse POV for best mode of transport pending pt's progress tomorrow Tuesday before discharge on Sat. BF Addendum entered by RENATE Selby 01/24/25 14:44: ADD: Spouse bedside around 1330 and updated her and pt on bedside Info Visit from Marian at [facility] at 1500 and spouse confirms she will remain bedside until at least the Info Visit. BF Original Note: DCP Hospice Planning Cont: SW called [facility] and they confirm they had pt's referral since last week from but had attempted Info Visit over phone but pt and spouse seemed to need in-person Info Visit. Brianna at [facility] is holding a spot for start of care this weekend, trying to determine Tuesday vs Tue pending availability. KVNG met bedside with pt and explained role and he confirms his preference is home with Hospice at discharge to stay in the home and reduce his admissions to the hospital. Pt confirms he already has hospital bed at home, bedside tables, does not feel he needs bedside commode as his bathroom is only a few steps away and he has not been on oxygen during his admission. KVNG updated Brianna at [facility] and they plan to complete Bedside Info Visit with pt and spouse today around 1500. RENATE Selby
[2025-01-24] MEDS: TIMOLOL 0.25% OPHTH 1 DROPS EYE-BOTH ×2 (09:34→22:14)
[2025-01-24 09:56] LABS: Alanine Aminotransferase 6 IU/L (<50); Albumin 3.4 g/dL (3.5-5.0); Albumin Globulin Ratio 1.5 (1.0-2.8); Alkaline Phosphatase 58 U/L (38-126); Blood Urea Nitrogen 15 mg/dL (9-20); Calcium 9.1 mg/dL (8.4-10.2); Carbon Dioxide 22 mmol/L (22-32); Chloride 110 mmol/L (98-107); Estimated Glomerular Filt Rate > 60 mL/min (>60); Globulin 2.3 g/dL (1.7-4.1); Glucose 114 mg/dL (70-99); HEMOLYSIS < 15 (0-50); Magnesium 1.8 mg/dL (1.6-2.3); Potassium 3.3 mmol/L (3.4-5.1); Sodium 140 mmol/L (137-145); Total Protein 5.7 g/dL (6.3-8.2)
[2025-01-24] MEDS: PIPERACILLIN/TAZO 3.375 GM in SODIUM CHLORIDE 0.9% 100 ML IV (10:35)
[2025-01-24] MEDS: CARBIDOPA-LEVODOPA 25/100 TABLET 2.5 EACH PO ×3 (10:35→21:49)
--- NOTE | 2025-01-24 11:51 | DIET.PN1 ---
Dietary Progress Note Assessment: Per rounds, plan to dc home on hospice. No low BG. No further nutritional interventions needed at this time. D/c consult. Ht: 165.1 cm Wt: 98 kg BMI: 34.9 UBW: Last BM: 01/20/25 (01/22/25 03:17) MNA: Bob Score: 17 Diet: 01/22/25 Breakfast Carbohydrate Consistent Diet Diet Modifications: Carbohydrate level: Medium (3 CHO) Reflex DM orders: No Nutrition Percent Meal Consumed 100% 01/23/25 18:00 Labs: RBC 4.27 X10^6/uL (4.5-5.9) L 01/23/25 03:12 Hgb 12.7 g/dL (13.5-17.5) L 01/23/25 03:12 Hct 37.4 % (41-53) L 01/23/25 03:12 Creatinine 0.93 mg/dL (0.66-1.25) 01/24/25 09:15 Lactate 1.7 mmol/L (0.7-2.1) 01/21/25 21:28 NT-Pro-B Natriuret Pep 324 pg/mL (<450) 01/21/25 18:46 Electronically Signed by: Zainab Berumen 01/24/25 11:51 Clinical Dietitian [address] [address]
[2025-01-24] MEDS: POTASSIUM CHLORIDE 20 MEQ TAB 40 MEQ PO ×2 (12:36→18:42)
[2025-01-24] MEDS: MEROPENEM 2 GM in SODIUM CHLORIDE 0.9% 100 ML IV ×2 (12:42→21:28)
--- NOTE | 2025-01-24 14:00 | DI.CT.S_ITS ---
PROCEDURE: CT SOFT TISSUE NECK WO CON INDICATIONS: Upper Airway Wheezing TECHNIQUE: Non-contrast 3.0 mm axial sections acquired from the sella to the aortic arch. Additional oblique axial 3.0 mm sections acquired through the pharynx. 3 mm thick coronal and sagittal reformats were generated. For radiation dose reduction, the following was used: automated exposure control. COMPARISON: None. FINDINGS: Image quality: Excellent. Lymph nodes: No enlarged lymph nodes seen throughout the neck. Vessels: Non-opacified vessels appear normal in caliber. Atherosclerosis of the aortic arch. Neck spaces: The oropharynx, nasopharynx, and pharynx demonstrate no mucosal lesions. Possible swelling of the vocal folds. The pyriform sinuses, epiglottis, vallecula, and tongue base all appear normal. Extramucosal spaces appear unremarkable. Glands: The parotid and submandibular glands appear normal, without stones. Thyroid gland unremarkable . Bones: No aggressive osseous abnormality. No displaced fractures. Cleft palate. Dental caries. Severe degenerative changes of the cervical spine. Bilateral shoulder arthropathy. Miscellaneous: Visualized brain and orbits appear normal. Lung apices appear clear. Superficial soft tissues appear normal. Deep brain stimulator on the right. IMPRESSION: Concerning for vocal fold swelling. Dictated by: Carlos Bruner M.D. on 01/24/2025 at 16:10 Approved by: Carlos Bruner M.D. on 01/24/2025 at 16:23
[2025-01-24] MEDS: SODIUM CHLORIDE 0.9% 1,000 ML 1000 ML IV (18:43)
--- NOTE | 2025-01-24 19:04 | PC.NURSE ---
1800 DR DEL TORO IN TO ASSESS PATIENT AGITATION/ WORK OF BREATHING. SEE NEW ORDERS PLACED FOR FLUIDS/ DECADRON. 1900 DR DEL TORO BACK AT BEDSIDE TO SEE PATIENT. PT WITH CONTINUED AGITATION, UNCONTROLLABLE MOVEMENTS. REPETITIVE TONGUE MOVEMENTS. CONTINUED INCREASED WORK OF BREATHING. PT ABLE TO STILL HOLD CONVERSATION, ANSWER QUESTIONS, AND MAKE NEEDS KNOWN. MD SUSPECTING POSSIBLE TARDIVE DYSKINESIA. MEDICATION ORDER PLACED. ORDERS FOLLOWED. CARE ONGOING.
[2025-01-24] MEDS: BENZTROPINE 2 MG/2 ML AMPUL IV (20:53)
[2025-01-24] MEDS: ATORVASTATIN 20 MG TABLET 10 MG PO (21:31)
[2025-01-24] MEDS: SODIUM CHLORIDE 0.9% 1,000 ML 100 ML IV (21:47)
[2025-01-24] MEDS: INSULIN GLARGINE 100 UNIT/ML 3ML PEN 40 UNIT SUBCUT (22:13)
[2025-01-25] VITALS (28 sets, daily range): BP systolic 126–154; BP diastolic 56–90; PULSE 43–87; RESP 19–28; TEMP 36.1–36.3; O2SAT 92–100
[2025-01-25] MEDS: MEROPENEM 2 GM in SODIUM CHLORIDE 0.9% 100 ML IV ×3 (03:45→21:08)
[2025-01-25] MEDS: CARBIDOPA-LEVODOPA 25/100 TABLET 3 EACH PO ×2 (07:03→13:36)
[2025-01-25] MEDS: PANTOPRAZOLE DR 20 MG TABLET PO (07:03)
[2025-01-25] MEDS: ENTACAPONE 200 MG TABLET PO ×5 (07:03→21:13)
[2025-01-25] MEDS: INSULIN GLARGINE 100 UNIT/ML 3ML PEN 30 UNIT SUBCUT (09:19)
[2025-01-25] MEDS: INSULIN LISPRO 100 UNIT/ML 3ML VIAL SUBCUT ×4 (09:21→21:21)
[2025-01-25] MEDS: ENOXAPARIN 40 MG/0.4 ML SYRINGE SUBCUT (09:22)
[2025-01-25] MEDS: CARBIDOPA-LEVODOPA ER 50/200 TABLET 1 EACH PO ×4 (09:24→21:12)
[2025-01-25] MEDS: ASPIRIN EC 81 MG TABLET PO (09:28)
[2025-01-25] MEDS: GABAPENTIN 100 MG CAPSULE PO ×3 (09:28→21:11)
[2025-01-25] MEDS: TAMSULOSIN 0.4 MG CAPSULE PO (09:28)
[2025-01-25] MEDS: ACETAMINOPHEN 325 MG TABLET 650 MG PO (09:28)
[2025-01-25] MEDS: TIMOLOL 0.25% OPHTH 1 DROPS EYE-BOTH ×2 (09:28→21:22)
[2025-01-25] MEDS: LOSARTAN 50 MG TABLET PO ×2 (09:31→21:11)
[2025-01-25] MEDS: ALBUTEROL 2.5 MG/3 ML NEB (ADULT) INH ×4 (09:55→19:03)
[2025-01-25] MEDS: CARBIDOPA-LEVODOPA 25/100 TABLET 2.5 EACH PO ×2 (11:09→18:14)
--- NOTE | 2025-01-25 12:54 | CM.DPC ---
Patient's , Madhu, is agreeable to BLS home with Hospice tomorrow 01/26/25. [facility] scheduled for 1PM 01/26/25 to transport home: [address] [place] [address]. POLST completed. POLST copy placed in chart. Original with CM along with [employer] [facility] and [place] transport form. POLST copy in CM office to be scanned in.
--- NOTE | 2025-01-25 14:45 | P.PN_ITS ---
Subjective Subjective Date Patient Seen: 01/25/25 Time Patient Seen: 07:50 Interval history: This is a 74 year old male with history of hypertension, hyperlipidemia, BPH, COPD, this mellitus type 2 insulin-dependent, presented to the ER with severe dyspnea, worsening of his Parkinson's disease and confusion in the last several days. The patient was diagnosed with UTI on January 18, 2025 growing up E. coli and Proteus sensitive for Zosyn. He also was hospitalized in December for COPD exacerbation. Reports chronic Churchill catheter for years due to renal obstruction. Laboratory shows WBC 12.6, hemoglobin 12.2, sodium 137, potassium 4.2, creatinine 0.86, blood sugar 225, UA positive for UTI, lactate 7.3, LFT normal, troponin normal, procalcitonin 0.07. Respiratory viral panel negative. Chest CT angio PE or any acute cardiopulmonary process. Abdominal CT scan shows super catheter present. Diffuse wall thickening and mild inflammatory change of the urinary bladder. ER he was given Tylenol, albuterol, fluid bolus, Zosyn 4.5 g IV. 01/22: He denies pain, or shortness a breath. He was writhing around which is somewhat typical for him. He was not confused. He was told to come in by his doctor at [facility]. He was received recent antibiotics for urinary tract infection. 01/23: His movement disorder flared the last night and he ended up needing to be put on BiPAP due to hypoxia. He is also on Precedex and is sedated/sleeping when I see him. Per Dr. Campa: The patient experienced respiratory decompensation, with significant tachypnea, labored breathing and tachycardia. Oxygen saturations were in the 85% range. He was transferred urgently to the ICU for BiPAP support, noting that this patient has tended to decompensate within the 1st 12 hours of admission typically and required BiPAP for COPD. After initiation of BiPAP the patient appeared considerably more comfortable. He was administered 0.5 mg of IV lorazepam which provided further comfort. 01/24: He continues to be very tremulous with an almost chorea like flailing movement of his extremities. He has pulled his IVs out. He only has a tremor of the left foot when I see him. Nursing has changed the settings on his deep brain stimulator without any significant change in the appearance of the tremor. His wheezing is quite impressive but is only in the upper airway. He is now on meropenem IV after E coli ESBL was identified in the 01/21 urine culture. We will also do a CT of the neck to rule out occult tracheal obstruction. Hospice informational visit will be done later today and the plan is discharge home on hospice. 01/25: Patient remained stable overnight. He was noted to have vocal cord swelling on his CT and was started on dexamethasone x2 days. After further discussion, he is interested in hospice, and signs a POLST form stating DNR/comfort care. This is reviewed with his who agrees and wishes him to return home tomorrow. Team rounds conducted regarding coordinating home hospice. Normocephalic skull Abdomen is obese. Yellow urine in the Churchill bag. Lungs clear, normal rate and effort. Upper airway wheezing noted. Heart regular, no murmur gallop or rub. Extremities are free of edema. Skin is free of rash or lesions. Joints are not swollen or deformed. Left foot is tremulous. Hands are not tremulous during my visit. IMAGING: CTAP 01/21: Suprapubic catheter is present. Diffuse wall thickening and mild inflammatory change of the bladder, similar to prior. Correlate with symptoms and urinalysis for signs of acute cystitis. Otehrwise, no etiology for sepsis is identified. Chest CTA 01/21: No pulmonary embolus. No acute cardiopulmonary process. Soft tissue neck CT 01/24: Concerning for vocal fold swelling. LABS: WBC 12.6, hemoglobin 12.2. Venous gas, pH 7.37, pCO2 29. Sodium 140, potassium 3.8, creatinine 0.68. Glucose 172. A/P: 1. Sepsis 2. UTI ESBL E coli, meropenem sensitive 3. DM 2, stable. 4. Parkinson's, unstable 5. Hypertension, stable. 6. HLD, stable. 7. BPH, stable. 8. CAD, stable. 9. Respiratory Decompensation 10. Vocal cord swelling PLAN: -continue IV dexamethasone x2 days -Now off BiPAP/Precedex -continue meropenem IV through discharge, then discontinue when on hospice -continue Parkinson's and hypertension medications -home with hospice tomorrow The plan is for discharge home on hospice on 01/26. Do not resuscitate/comfort care. POLST form completed 01/25/2025 is proxy decision maker Exam Vital Signs (past 8 hours): - 01/25/25 07:49 01/25/25 08:46 01/25/25 08:52 Temperature Pulse Rate 71 62 Respiratory Rate Blood Pressure Pulse Oximetry 92 99 94 Oxygen Delivery Method Oxygen Flow Rate Fraction of Inspired Oxygen 01/25/25 08:52 01/25/25 09:00 01/25/25 09:58 Temperature 97.0 F L Pulse Rate 62 45 L Respiratory Rate 20 Blood Pressure 135/85 135/85 Pulse Oximetry 96 99 Oxygen Delivery Method Oxygen Flow Rate Fraction of Inspired Oxygen 01/25/25 10:05 01/25/25 10:07 01/25/25 11:17 Temperature Pulse Rate 47 L 48 L 85 Respiratory Rate 24 Blood Pressure Pulse Oximetry 98 98 99 Oxygen Delivery Method Room Air Oxygen Flow Rate 0 Fraction of Inspired Oxygen 21 01/25/25 11:18 01/25/25 11:18 01/25/25 12:00 Temperature 97.4 F L Pulse Rate 87 78 Respiratory Rate 21 Blood Pressure 145/79 H 145/79 H Pulse Oximetry 99 94 Oxygen Delivery Method Oxygen Flow Rate Fraction of Inspired Oxygen 01/25/25 12:59 Temperature Pulse Rate 46 L Respiratory Rate 22 Blood Pressure Pulse Oximetry 95 Oxygen Delivery Method Room Air Oxygen Flow Rate 0 Fraction of Inspired Oxygen 21 Fraction of Inspired Oxygen 21 SaO2/FiO2 Ratio 438 Oxygen Delivery Method Room Air Oxygen Flow Rate 0 Objective Labs 01/23/25 03:12 01/24/25 09:15 Labs: Laboratory Results - last 24 hr 01/24/25 01/24/25 01/25/25 16:42 21:54 05:04 POC Whole Bld Glucose 97 110 H 164 H 01/25/25 01/25/25 08:19 12:17 POC Whole Bld Glucose 175 H 181 H [facility] Medical History Tinea cruris Impingement of both shoulders Acute on chronic urinary retention Urinary retention COPD exacerbation History of urinary retention Hyperlipidemia History of nephrolithiasis Left nephrolithiasis Urinary retention Recurrent UTI History of prostate cancer Acne Shoulder pain Ankle pain Measles Chicken pox Prostate cancer (~2010) Anemia Benign prostatic hyperplasia GERD (gastroesophageal reflux disease) Hypertension Type 2 diabetes mellitus Parkinson's disease Congestive heart failure Surgical History S/P deep brain stimulator placement (11/2019) History of prostate biopsy Anesthesia History of knee surgery Kidney stones Family History Father Stroke Hypertension Bacterial UTI Mother Cancer Sister Hypertension Aunt Diabetes mellitus Uncle Kidney stones Social History marital status: number of children: 3 household members: spouse alcohol intake: never Type(s) of exercise: walking frequency: 1-2 times per week PROFEE Felt Puller Document charge(s): No Charge Codes Subsequent inpatient/observation care: [id number]
--- NOTE | 2025-01-25 17:21 | PC.NURSE ---
Pt's Parkinsons symptoms very much more controlled during the dad with TD increasing in the evening. Tongue protrusion and movement greatly increasing. Good appetite, catheter care completed. Pt still wheezing but on RA with no complaints of SOB, breathing treatments done. Plan to DC tomorrow on hospice. at bedside.
[2025-01-25] MEDS: ATORVASTATIN 20 MG TABLET 10 MG PO (21:11)
[2025-01-25] MEDS: DOCUSATE 100 MG CAPSULE PO (21:11)
[2025-01-25] MEDS: INSULIN GLARGINE 100 UNIT/ML 3ML PEN 40 UNIT SUBCUT (21:21)
[2025-01-26] VITALS (13 sets, daily range): BP systolic 126–134; BP diastolic 78–83; PULSE 50–102; RESP 18–24; TEMP 36.1–36.4; O2SAT 58–98
[2025-01-26] MEDS: CARBIDOPA-LEVODOPA 25/100 TABLET 2.5 EACH PO ×2 (00:39→10:18)
[2025-01-26] MEDS: MEROPENEM 2 GM in SODIUM CHLORIDE 0.9% 100 ML IV (04:39)
[2025-01-26] MEDS: CARBIDOPA-LEVODOPA 25/100 TABLET 3 EACH PO (06:45)
[2025-01-26] MEDS: PANTOPRAZOLE DR 20 MG TABLET PO (06:46)
[2025-01-26] MEDS: ENTACAPONE 200 MG TABLET PO ×2 (06:47→10:17)
[2025-01-26] MEDS: ALBUTEROL 2.5 MG/3 ML NEB (ADULT) INH (08:16)
[2025-01-26] MEDS: INSULIN LISPRO 100 UNIT/ML 3ML VIAL SUBCUT ×2 (08:17→12:06)
[2025-01-26] MEDS: INSULIN GLARGINE 100 UNIT/ML 3ML PEN 30 UNIT SUBCUT (08:18)
[2025-01-26] MEDS: TIMOLOL 0.25% OPHTH 1 DROPS EYE-BOTH (08:56)
[2025-01-26] MEDS: ENOXAPARIN 40 MG/0.4 ML SYRINGE SUBCUT (08:56)
[2025-01-26] MEDS: ASPIRIN EC 81 MG TABLET PO (08:57)
[2025-01-26] MEDS: TAMSULOSIN 0.4 MG CAPSULE PO (08:57)
[2025-01-26] MEDS: DOCUSATE 100 MG CAPSULE PO (08:58)
[2025-01-26] MEDS: LOSARTAN 50 MG TABLET PO (08:58)
[2025-01-26] MEDS: CARBIDOPA-LEVODOPA ER 50/200 TABLET 1 EACH PO ×2 (08:58→13:03)
[2025-01-26] MEDS: GABAPENTIN 100 MG CAPSULE PO (08:58)
--- NOTE | 2025-01-26 10:43 | PC.NURSE ---
0730 pt resting in bed; has some activity, but not unsafe in movements; will continue to monitor for increased restlessness; pt can answer questions appropriately; appears fully oriented. 0815 pt did not take his meal; but pt did take about 1/2 chocolate pudding thinned a little with milk for taking his oral meds; this went well; swallowing well; did not want more food, but tolerated what he needed with oral meds; and pt again at 1015 tolerated oral med with pudding thinned a little with milk. pt appears to have much improved tremors after takiing his scheduled meds. pt is napping between cares; RN asked pt about his home 02 use, pt denies using any; RN stopped 02 and will follow pulse ox for changes but for this time froma 02 sats are 97-98%. pt does not appear uncomfortable, and denies pain. pt is in position of comfort. has napped well, but easily responds to verbal.
--- NOTE | 2025-01-26 10:50 | CM.DPC ---
Addendum entered by Sonali Gracia RN 01/26/25 12:31: DC SUMMARY SENT TO HOSPICE. Original Note: CM confirmed Hospice visit is today between 2PM and 1530 PM. MW BLS cotton picker is 1 PM to transport home.
--- NOTE | 2025-01-26 12:05 | P.DS_ITS ---
History of Present Illness History of Present Illness Date Patient Seen: 01/26/25 Time Patient Seen: 07:55 Chief complaint: PC ref, UTI Narrative: 74 years old male with history of hypertension, hyperlipidemia, BPH, COPD, this mellitus type 2 insulin-dependent, presented to the ER with severe dyspnea, worsening of his Parkinson's disease and confusion in the last several days. The patient was diagnosed with UTI on January 18, 2025 growing up E. coli and Proteus sensitive for Zosyn. He also was hospitalized in December for COPD exacerbation. Reports chronic Churchill catheter for years due to renal obstruction. Laboratory shows WBC 12.6, hemoglobin 12.2, sodium 137, potassium 4.2, creatinine 0.86, blood sugar 225, UA positive for UTI, lactate 7.3, LFT normal, troponin normal, procalcitonin 0.07. Respiratory viral panel negative. Chest CT angio PE or any acute cardiopulmonary process. Abdominal CT scan shows super catheter present. Diffuse wall thickening and mild inflammatory change of the urinary bladder. ER he was given Tylenol, albuterol, fluid bolus, Zosyn 4.5 g IV. Discharge Providers Provider Date of admission: 01/22/25 02:16 Discharge Date: 01/26/25 Primary care physician: Ravindra Goldsmith DO Consults: 01/22/25 08:02 Consult to Dietitian, Adult Routine Comment: Reason For Exam: high basal insulin dose 01/23/25 00:41 Consult to Pharmacy Routine Comment: Protocol Discharge provider: Flavio Campa MD Summary Hospital Course Discharge Diagnosis: 1. Sepsis 2. UTI ESBL E coli, meropenem sensitive 3. DM 2, stable. 4. Parkinson's, unstable 5. Hypertension, stable. 6. HLD, stable. 7. BPH, stable. 8. CAD, stable. 9. Respiratory Decompensation 10. Vocal cord swelling Hospital Course: 01/22: He denies pain, or shortness a breath. He was writhing around which is somewhat typical for him. He was not confused. He was told to come in by his doctor at [facility]. He was received recent antibiotics for urinary tract infection. 01/23: His movement disorder flared the last night and he ended up needing to be put on BiPAP due to hypoxia. He is also on Precedex and is sedated/sleeping when I see him. Per Dr. Campa: The patient experienced respiratory decompensation, with significant tachypnea, labored breathing and tachycardia. Oxygen saturations were in the 85% range. He was transferred urgently to the ICU for BiPAP support, noting that this patient has tended to decompensate within the 1st 12 hours of admission typically and required BiPAP for COPD. After initiation of BiPAP the patient appeared considerably more comfortable. He was administered 0.5 mg of IV lorazepam which provided further comfort. 01/24: He continues to be very tremulous with an almost chorea like flailing movement of his extremities. He has pulled his IVs out. He only has a tremor of the left foot when I see him. Nursing has changed the settings on his deep brain stimulator without any significant change in the appearance of the tremor. His wheezing is quite impressive but is only in the upper airway. He is now on meropenem IV after E coli ESBL was identified in the 01/21 urine culture. We will also do a CT of the neck to rule out occult tracheal obstruction. Hospice informational visit will be done later today and the plan is discharge home on hospice. 01/25: Patient remained stable overnight. He was noted to have vocal cord swelling on his CT and was started on dexamethasone x2 days. After further discussion, he is interested in hospice, and signs a POLST form stating DNR/comfort care. This is reviewed with his who agrees and wishes him to return home tomorrow. Team rounds conducted regarding coordinating home hospice. 01/26: No new events overnight. Care reviewed with the patient's who agrees to accept him tomorrow with adequate home support with hospice. Hospice will be arriving in his house at 2:00 p.m.. Team rounds conducted with case management with departure planned at 1:00 p.m.. Status at Discharge Functional status at discharge: bed bound Overall status at discharge: patient is not back to baseline Time Spent with Patient Time spent: Greater than 30 minutes Exam Vital Signs (past 8 hours): - 01/26/25 08:05 01/26/25 08:06 01/26/25 08:06 Temperature Pulse Rate 100 H 102 H Respiratory Rate Blood Pressure 134/83 Pulse Oximetry 98 98 Oxygen Delivery Method Oxygen Flow Rate Fraction of Inspired Oxygen 01/26/25 08:20 01/26/25 08:58 01/26/25 09:00 Temperature 97.6 F Pulse Rate 59 L 100 H Respiratory Rate 22 Blood Pressure 134/83 Pulse Oximetry 58 L Oxygen Delivery Method Room Air Oxygen Flow Rate 0 Fraction of Inspired Oxygen 21 Fraction of Inspired Oxygen 21 SaO2/FiO2 Ratio 276 Oxygen Delivery Method Room Air Oxygen Flow Rate 0 Narrative Exam Narrative: Appears calm in no apparent distress. Answers questions appropriately. Lungs clear, normal rate and effort. Upper airway wheezing noted. Heart regular, no murmur gallop or rub. Abdomen is obese. Extremities are free of edema. Skin is free of rash or lesions. Joints are not swollen or deformed. Left foot is tremulous. Moving all 4 extremities. Objective Imaging *: Radiologist's impression: CTAP 01/21: Suprapubic catheter is present. Diffuse wall thickening and mild inflammatory change of the bladder, similar to prior. Correlate with symptoms and urinalysis for signs of acute cystitis. Otehrwise, no etiology for sepsis is identified. Chest CTA 01/21: No pulmonary embolus. No acute cardiopulmonary process. Soft tissue neck CT 01/24: Concerning for vocal fold swelling. Labs 01/23/25 03:12 01/24/25 09:15 Labs: Laboratory Results - last 24 hr 01/25/25 01/25/25 01/25/25 12:17 16:33 22:03 POC Whole Bld Glucose 181 H 170 H 259 H 01/26/25 01/26/25 08:02 12:03 POC Whole Bld Glucose 261 H 259 H [facility] Medical History Acne Acute on chronic urinary retention Anemia Ankle pain Benign prostatic hyperplasia Chicken pox Congestive heart failure COPD exacerbation GERD (gastroesophageal reflux disease) History of nephrolithiasis History of prostate cancer History of urinary retention Hyperlipidemia Hypertension Impingement of both shoulders Left nephrolithiasis Measles Parkinson's disease Prostate cancer (~2010) Recurrent UTI Shoulder pain Tinea cruris Type 2 diabetes mellitus Urinary retention Urinary retention Surgical History Anesthesia History of knee surgery History of prostate biopsy Kidney stones S/P deep brain stimulator placement (11/2019) Family History Father Stroke Hypertension Bacterial UTI Mother Cancer Sister Hypertension Aunt Diabetes mellitus Uncle Kidney stones Social History marital status: number of children: 3 household members: spouse alcohol intake: never Type(s) of exercise: walking frequency: 1-2 times per week Discharge Plan Discharge Plan Patient Disposition: Hospice - Home Discharge orders & Medications Prescriptions: Continued (DME) Comfort Touch Ult Thin Lancets 31 gauge misc See Rx Instructions .Route Qty: 100 2RF Rx Instructions: use to check blood sugars 1-2 times per day (DME) Blood Glucose Test Strip See Rx Instructions .Route Qty: 50 5RF Rx Instructions: use to check blood sugars 1-2 times per day (DME) blood-glucose meter Misc See Rx Instructions .Route Qty: 1 0RF Rx Instructions: use to check blood sugars 1-2 times per day metformin 850 mg tablet 850 mg PO TID Qty: 240 3RF Patient Comments: Takes with meals ipratropium-albuterol 0.5 mg-3 mg(2.5 mg base)/3 mL solution for nebulization 3 ml inhalation Q6H PRN (Reason: shortness of breath or wheezing) Qty: 180 1RF losartan 50 mg tablet 50 mg PO BID Qty: 180 3RF gabapentin 100 mg capsule 100 mg PO 3XD Qty: 270 1RF Renacidin 1,980.6 mg-59.4 mg-980.4mg/30mL solution 30 ml irrigation TID Qty: 900 3RF Patient Comments: Does catheter irrigation usually around 1700 to 1800 Daily. (DME) pen needle, diabetic [Reshma 2nd Gen Pen Needle] 32 gauge x 5/32 needle See Rx Instructions .ROUTE .COMPLEX Qty: 100 3RF Dose Instruction: Use to inject insulin two times daily Rx Instructions: Use to inject insulin two times daily finasteride 5 mg tablet 5 mg PO DAILY Qty: 90 3RF atorvastatin 10 mg tablet 10 mg PO DAILY Qty: 90 3RF omeprazole 20 mg capsule,delayed release(DR/EC) 20 mg PO DAILY Qty: 90 1RF potassium chloride 10 mEq tablet extended release 10 meq PO BID temazepam 15 mg capsule 15 mg PO BEDTIME PRN (Reason: sleep) timolol maleate 0.25 % drops 1 drp EYE-BOTH DAILY Patient Comments: Pharmacy will clarify. albuterol sulfate 2.5 mg /3 mL (0.083 %) solution for nebulization 2.5 mg inhalation QID Qty: 75 2RF nystatin 100,000 unit/gram powder 1 applic topical TID Qty: 15 3RF Patient Comments: Groin and buttocks. aspirin [Adult Low Dose Aspirin] 81 mg tablet,delayed release (DR/EC) 81 mg PO DAILY latanoprost 0.005 % drops 1 drp EYE-BOTH DAILY acetaminophen [Acetaminophen Extra Strength] 500 mg Tablet 500 mg PO Q6H PRN (Reason: Pain (Scale Score 4-6)) cranberry fruit 400 mg Capsule 400 mg PO DAILY Rx Instructions: administer with a meal carbidopa-levodopa 25-100 mg tablet See Rx Instructions .ROUTE .COMPLEX Patient Comments: extended release Rx Instructions: take 3 tabs at 0600, 2.5 tabs at 1000, 3 tabs at 1400, 2.5 tabs at 1800, 2.5 tabs at 2200 entacapone 200 mg Tablet 200 mg PO 5XD tamsulosin 0.4 mg capsule 0.4 mg PO DAILY amlodipine 5 mg tablet 10 mg PO DAILY insulin glargine [Lantus Solostar U-100 Insulin] 100 unit/mL (3 mL) insulin pen 60 unit SUBCUT BEDTIME Patient Comments: 70 UNITS IN THE MORNING AND 60 UNITS AT BEDTIME To be clarified by Pharmacy albuterol sulfate 2.5 mg /3 mL (0.083 %) Solution For Nebulization 2.5 mg inhalation Q4H PRN (Reason: Shortness Of Breath) Qty: 90 0RF polyethylene glycol 3350 [Gavilax] 17 gram Powder In Packet 17 gm PO DAILY PRN (Reason: Constipation) Qty: 30 0RF Patient Comments: Takes as needed. docusate sodium 100 mg Capsule 100 mg PO BID Qty: 60 0RF carbidopa-levodopa 50-200 mg tablet extended release 1 tab PO 4XD insulin glargine 100 unit/mL (3 mL) insulin pen 70 unit SUBCUT DAILY Patient Comments: 70 UNITS IN THE MORNING, 60 UNITS AT BEDTIME HELD MORNING DOSE 12/16 DUE TO LOW BLOOD SUGAR methenamine hippurate 1 gram tablet 1 g PO BID Qty: 180 3RF Follow up/Referrals: Ravindra Goldsmith DO [Primary Care Provider, Family Practice] Visit Report/Discharge Packet Stand Alone Forms: [employer], Patient Portal/API, Stroke Signs & Symptoms, Influenza Vaccine Info, Notice of Privacy Practices, Inpatient vs Outpatient, Pneumococcal Vaccine Info, Pt. Rights & Responsibilities Discharge Data Primary Care Provider: Ravindra Goldsmith MIPS - Admit I confirm the patient?s Advance Care Plan is present, Code status is documented, Surrogate decision maker is in patient?s record [If Yes, STOP here]: Yes MIPS - Meds 'Current medications' to include all prescriptions, [id number] products, herbals, cannabis/cannabidiol products, and vitamin/mineral/dietary (nutritional) supplements. I have utilized all available resources to obtain, update, or review the patient?s current medications. [If Yes, STOP here]: Yes MIPS - DC The patient has a history of heart transplant or Left Ventricular Assist Device (LVAD). If yes, STOP here.: No The patient has current or prior documentation of left ventricular ejection fraction (LVEF) less than or equal to 40%, or moderate or severely depressed left ventricular systolic function.: No A. The patient was prescribed or already taking an Angiotensin-Converting Enzyme (ZULY) Inhibitor, or Angiotensin Receptor Odette (ARB).: No B. The patient was prescribed or already taking a beta-odette. [If Yes to Both A & B, STOP here]: No Patient not prescribed/taking ZULY or ARB, no reason given.: No Patient not prescribed/taking beta-odette, no reason given.: No PROFEE Charge Codes Discharge inpatient/observation: [id number]
--- NOTE | 2025-01-26 13:41 | PC.NURSE ---
[id number] transfer team with EMS here; bedside report given; spouse was introduced to the team; rounded and updated the spouse about home care; hospice in place and the RN for this care is due to meet the pt and spouse at 1400; provided pt with phone number for calling him at the hospital should any concerns rise with home care.. Pt has tolerated room air with stable sats at 96-98% on RA; pt has denied pain; has patent supra pubic cathether that has remained patent. Pt declined eating much; but has taken meds with pudding that has been thinned with milk; teaching about this given to spouse for improved medication administration at home. Pt has had calm day; did not require any prn meds for agitation; tolerated his bed bath and hair cap shampoo; has repeatedly denied pain.
== END 2025-01-26 13:25 | disposition hospice, home (50) | DRG 698 ==
LOC: ED 01-22 02:17 → AC 01-22 02:17 → ICU 01-22 18:50
PROVIDERS: Emergency Medicine; Hospitalist; Admitting Provider Internal Medicine; Emergency Provider Student in an Organized Health Care Education/Training Program; PCP Family Medicine; Referring Provider Student in an Organized Health Care Education/Training Program; Visit Provider Internal Medicine
DX: T83.511A Infection and inflammatory reaction due to indwelling urethral catheter, initial encounter (principal); A41.9 Sepsis, unspecified organism; J96.01 Acute respiratory failure with hypoxia; G93.41 Metabolic encephalopathy; N39.0 Urinary tract infection, site not specified; G20.A1 Parkinson's disease without dyskinesia, without mention of fluctuations; E11.65 Type 2 diabetes mellitus with hyperglycemia; I10 Essential (primary) hypertension; E78.5 Hyperlipidemia, unspecified; I25.10 Atherosclerotic heart disease of native coronary artery without angina pectoris; K21.9 Gastro-esophageal reflux disease without esophagitis; K59.09 Other constipation; N40.0 Benign prostatic hyperplasia without lower urinary tract symptoms; H40.9 Unspecified glaucoma; B96.20 Unspecified Escherichia coli [E. coli] as the cause of diseases classified elsewhere; J38.4 Edema of larynx; J44.9 Chronic obstructive pulmonary disease, unspecified; Y73.1 Therapeutic (nonsurgical) and rehabilitative gastroenterology and urology devices associated with adverse incidents; Z79.84 Long term (current) use of oral hypoglycemic drugs; Z79.4 Long term (current) use of insulin; Z66 Do not resuscitate; Z51.5 Encounter for palliative care; Z96.82 Presence of neurostimulator; Z79.51 Long term (current) use of inhaled steroids; Z87.891 Personal history of nicotine dependence
CPT/HCPCS: 36415; 70490; 71045; 71275; 74177; 80053; 80061; 81001; 82550; 82805; 82962; 83605; 83735; 83880; 84145; 84484; 85025; 85027; 85379; 85610; 85730; 87040; 87077; 87086; 87186; 87633; 93005; 93010; 94640; 94660; 96365; 99284; J0360; J0515; J1100; J1650; J1815; J2060; J2185; J2543; J7030; J7050; J7613; Q9967